=== PATIENT | male | born 1965 | race Two or more races ===

== ENCOUNTER 2020-03-24 14:05 | Outpatient (REF) | payer OTHER, SELFPAY ==
--- NOTE | 2020-03-24 14:10 | XR_ITS ---
EXAMINATION: XR STANDING AP KNEES XR KNEE, RIGHT CLINICAL INFORMATION: M25.561 - Pain in right knee; M25.562 - Pain in left knee COMPARISON: Standing AP knees and bilateral knee radiographs 03/23/2016 TECHNIQUE: Standing AP view of both knees is performed along with lateral and axial patella views of the right knee. FINDINGS: Right knee has mild narrowing medial compartment and borderline narrowing patellofemoral joint. There are no erosive changes. There is mild thickening suprapatellar bursa. There is likely edema are in region of Hoffa's fat pad. There is no bony destructive process. Left knee shows no joint narrowing or erosive change. No destructive process. XR/XR knee RT 2V IMPRESSION: Right knee: Mild narrowing medial compartment and borderline narrowing patellofemoral joint. Trace suprapatellar effusion. Edema in Hoffa's fat pad. Left knee: Unremarkable.
--- NOTE | 2020-03-24 14:10 | XR_ITS ---
EXAMINATION: XR STANDING AP KNEES XR KNEE, RIGHT CLINICAL INFORMATION: M25.561 - Pain in right knee; M25.562 - Pain in left knee COMPARISON: Standing AP knees and bilateral knee radiographs 03/23/2016 TECHNIQUE: Standing AP view of both knees is performed along with lateral and axial patella views of the right knee. FINDINGS: Right knee has mild narrowing medial compartment and borderline narrowing patellofemoral joint. There are no erosive changes. There is mild thickening suprapatellar bursa. There is likely edema are in region of Hoffa's fat pad. There is no bony destructive process. Left knee shows no joint narrowing or erosive change. No destructive process. XR/XR knee standing BI IMPRESSION: Right knee: Mild narrowing medial compartment and borderline narrowing patellofemoral joint. Trace suprapatellar effusion. Edema in Hoffa's fat pad. Left knee: Unremarkable.
== END 2020-03-24 14:06 | disposition home or self-care (01) ==
LOC: HO.HOSX 14:05
PROVIDERS: Visit Provider Orthopaedic Surgery
DX: M25.562 Pain in left knee (principal); M25.561 Pain in right knee; M22.2X1 Patellofemoral disorders, right knee
CPT/HCPCS: 20610; 73560; 73565; 99202; J1040

== ENCOUNTER 2020-07-02 08:28 | Outpatient (REF) | payer OTHER, SELFPAY ==
[2020-07-02 09:41] LABS: Estimated Average Glucose 163 mg/dL; Hemoglobin A1c % 7.3 %
[2020-07-02 10:24] LABS: Alanine Aminotransferase 11 U/L (0-40); Albumin Level 4.2 g/dL (3.5-5.0); Alkaline Phosphatase 98 U/L (39-117); Anion Gap 10 (12-20); Aspartate Amino Transferase 12 U/L (5-37); Bilirubin Total 0.3 mg/dL (0.0-1.0); Blood Urea Nitrogen 18 mg/dL (9-16); Calcium 9.1 mg/dL (8.4-10.2); Carbon Dioxide 28 mmol/L (22-29); Chloride 107 mmol/L (96-108); Cholesterol 101 mg/dL; Estimated Glomerular Filt Rate > 60; Glucose Fasting 159 mg/dL (60-99); HDL Cholesterol 32 mg/dL; LDL Cholesterol Calculated 55 mg/dl; Potassium 4.4 mmol/L (3.3-5.1); Sodium 141 mmol/L (135-145); Total Protein 6.6 g/dL (6.5-8.0); Triglycerides 70 mg/dL
[2020-07-02 10:41] LABS: Vitamin B12 212 pg/mL (200-900)
== END 2020-07-02 08:29 | disposition home or self-care (01) ==
LOC: HO.LAB 08:28
PROVIDERS: PCP Student in an Organized Health Care Education/Training Program; Visit Provider Nurse Practitioner Gerontology
DX: E11.42 Type 2 diabetes mellitus with diabetic polyneuropathy (principal)
CPT/HCPCS: 36415; 80053; 80061; 82607; 83036

== ENCOUNTER → 2020-07-03 07:52 | Outpatient (BNVA) | payer OTHER, SELFPAY | PROVIDERS: PCP Pediatrics; Visit Provider Nurse Practitioner Gerontology | DX: Z13.89 Encounter for screening for other disorder (principal) | CPT/HCPCS: Q3014 ==

== ENCOUNTER → 2020-08-31 10:29 | Outpatient (BNVA) | payer OTHER, SELFPAY | PROVIDERS: PCP Student in an Organized Health Care Education/Training Program; Visit Provider Nurse Practitioner | DX: R19.7 Diarrhea, unspecified (principal); R10.33 Periumbilical pain | CPT/HCPCS: 99212 ==

== ENCOUNTER → 2020-09-21 13:01 | Outpatient (BNVA) | payer OTHER, SELFPAY | PROVIDERS: PCP Student in an Organized Health Care Education/Training Program; Visit Provider Nurse Practitioner ==

== ENCOUNTER → 2020-10-02 07:29 | Outpatient (BNVA) | payer OTHER, SELFPAY | PROVIDERS: PCP Student in an Organized Health Care Education/Training Program; Visit Provider Nurse Practitioner Gerontology | CPT/HCPCS: Q3014 ==

== ENCOUNTER 2020-11-05 16:12 | Emergency (ER) | payer OTHER, SELFPAY ==
--- NOTE | ~2020-11-05 | CT_ITS ---
EXAMINATION: CT ABDOMEN AND PELVIS WITH CONTRAST CLINICAL INFORMATION: Abdominal pain, diarrhea COMPARISON: None TECHNIQUE: Multidetector volumetric images were obtained from the superior aspect of the liver through the pubic symphysis following administration 85 mL of Omnipaque 350 intravenous contrast. Sagittal and coronal reformatted images were obtained on the technologist's workstation. Oral contrast: No This CT examination was performed using dose optimization techniques as appropriate, variously including the following: *Automated exposure control *Adjustment of mA and/or kV according to patient size (this includes techniques or standardized protocols for targeted exams where dose is matched to indication/reason for exam; i.e. extremities or head) *Use of iterative reconstruction technique DLP: 467 mGy-cm FINDINGS: LUNG BASES: Trace left pleural effusion. LIVER, GALLBLADDER, AND BILIARY TREE: There is a 1.2 cm subdiaphragmatic echogenic focus in the left hepatic lobe most likely representing a hemangioma although is nonspecific. The gallbladder is unremarkable with no evidence of radiopaque gallstones, gallbladder wall thickening, or obvious pericholecystic inflammatory changes. PANCREAS: Unremarkable. SPLEEN: Unremarkable. ADRENAL GLANDS: Unremarkable. KIDNEYS AND URETERS: The kidneys are normal in size, shape, and attenuation. No hydronephrosis, hydroureter, or calculi seen. No perinephric stranding. There is a 1.4 cm simple fluid density left renal cyst at the lower pole which does not require additional follow-up. BLADDER: There is a 2.3 cm right posterolateral urinary bladder diverticula. Otherwise unremarkable. GASTROINTESTINAL TRACT: The small and large bowel are unremarkable. The appendix is unremarkable. ABDOMINAL WALL: No significant hernia is appreciated. LYMPH NODES: Normal. VASCULAR: Unremarkable. PELVIC VISCERA: Unremarkable. OSSEOUS STRUCTURES: Unremarkable. CT/CT abdomen pelvis w con IMPRESSION: No focal inflammatory process or obstruction. Incidental right-sided urinary bladder diverticula. There is a 1.2 cm hyperattenuating lesion within the subdiaphragmatic left hepatic lobe most likely representing a hemangioma although is not specific. Dynamic liver MRI may be able to definitively characterize. There is a trace left pleural effusion.
[2020-11-05 16:23] VITALS: BP 140/85; PULSE 86; RESP 16; TEMP 36.2; O2SAT 99; BMI 23.9
[2020-11-05 17:54] LABS: MANUAL DIFF FLAG NO
--- NOTE | 2020-11-05 17:56 | ED.ABDPAIN ---
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 He has intermittent vomiting with it. At times he has diarrhea which appears dark but this alternates with brown normal formed stool. No fevers, chills, urinary symptoms. Nonbloody and nonbilious vomiting. He tells me he had intake with a weight control engineer 1 week ago on the phone and had outpatient labs and stool studies which were done. He tells me he does not know these results. Today he was seen at [facility] and referred to the emergency department for further evaluation. He does use aspirin 325 mg daily as well as intermittent Motrin. he tells me he had a colonoscopy approximately 1 year ago which was normal. He has had a poor appetite in the last month and has lost approximately 7 lb. Related Data Home Medications Medication Instructions Recorded Confirmed acetaminophen 650 mg 650 mg PO tab 03/17/20 10/02/20 tablet,extended release alcohol swabs pad TOPICAL TID 03/17/20 10/02/20 aspirin 81 mg tablet,delayed 81 mg PO DAILY 03/17/20 10/02/20 release atorvastatin 80 mg tablet 80 mg PO DAILY 03/17/20 10/02/20 blood sugar diagnostic #10 ea 03/17/20 10/02/20 carvedilol 12.5 mg tablet 12.5 mg PO 03/17/20 10/02/20 cholecalciferol (vitamin D3) 25 25 mcg PO QAM 03/17/20 10/02/20 mcg (1,000 unit) tablet gabapentin 800 mg tablet 800 mg PO BID tab 03/17/20 10/02/20 ipratropium 20 mcg-albuterol 100 1 INHALATION QID 03/17/20 10/02/20 mcg/actuation mist for inhalation lancets 33 gauge #100 ea 03/17/20 10/02/20 mirtazapine 45 mg tablet 45 mg PO BEDTIME 03/17/20 10/02/20 oxybutynin chloride 5 mg tablet 5 mg PO BID 03/17/20 10/02/20 pen needle, diabetic 32 gauge x #50 ea 03/17/20 10/02/20 sertraline 50 mg tablet 50 mg PO DAILY 03/17/20 10/02/20 pantoprazole 40 mg tablet,delayed 40 mg PO 09/21/20 10/02/20 release Previous Rx's Medication Instructions Recorded insulin glargine U-300 conc 300 7 unit SUBCUT DAILY 54 Days #1.5 ml 07/03/20 unit/mL (1.5 mL) subcutaneous pen dulaglutide 3 mg/0.5 mL 3 mg SUBCUT QWEEK 28 Days #2 ml 10/02/20 subcutaneous pen injector metformin 1,000 mg tablet 1,000 mg PO BID #60 tab 10/02/20 amitriptyline 75 mg tablet 75 mg PO BEDTIME #30 tab 10/28/20 Allergies Allergy/AdvReac Type Severity Reaction Status Date / Time naproxen [From NAPROSYN] Allergy Mild HIVES Verified 10/02/20 08:17 Review of Systems Review of Systems Yes all other systems are reviewed and are negative Constitutional: Reports no additional constitutional complaints, Denies body ache(s), Denies chills, Denies fever(s), Denies headache(s), Denies weakness and Reports weight loss Eyes: Reports no additional eye complaints and Denies change in vision Reports system reviewed and no additional complaints, except as documented, Denies dizziness, Denies headache(s), Denies nasal congestion, Denies nasal discharge and Denies neck pain Cardiovascular: Reports no additional cardiovascular complaints, Denies chest pain, Denies leg edema and Denies dyspnea Respiratory: Reports no additional respiratory complaints, Denies cough and Denies dyspnea Gastrointestinal: Reports no additional gastrointestinal complaints, Reports abdominal pain, Reports melena, Reports diarrhea, Reports nausea and Reports vomiting Genitourinary: Denies urinary incontinence Musculoskeletal: Reports no additional musculoskeletal complaints, Denies back pain, Denies arthralgias, Denies joint swelling, Denies neck pain, Denies numbness and Denies tingling Skin/Breast: Reports system reviewed and no additional complaints, except as docu and Denies rash Reports system reviewed and no additional complaints, except as documented, Denies Abnormal speech present, Denies dizziness, Denies headache(s), Denies numbness, Denies tingling and Denies weakness Physical Exam Vital Signs: Vital Signs: Last Vital Signs Temp 97.1 F 11/05/20 16:23 Pulse 86 11/05/20 16:23 Resp 16 11/05/20 16:23 BP 140/85 H 11/05/20 16:23 Pulse Ox 99 11/05/20 16:23 Body Mass Index 23.9 Const: General: cooperative, healthy appearing, comfortable and no acute distress Orientation/consciousness: patient oriented x3 Limitations: no limitations HENMT: Head: Yes normal to inspection Ears: hearing grossly normal bilaterally General nose exam: Normal external nose present Face and sinus: Yes normal facial exam Mouth: Normal oral and palatal mucosa present Throat: Yes posterior oropharynx normal Eyes: General: appearance normal, both eyes and all related structures Pupils: Equal, round and reactive pupils present Neck: Neck: Yes normal visual inspection Chest: Chest palpation & inspection: normal inspection of the chest Resp: Effort & Inspection: normal respiratory effort Auscultation: clear to auscultation bilaterally Cardio: Rate: regular rate Rhythm: regular rhythm Peripheral pulses: Peripheral pulses 2+ throughout GI: Inspection: Yes normal to inspection Palpation (GI): Soft to palpation and Tenderness to palpation present (GI) ( Diffusely tender no focal tenderness) Auscultation: normal bowel sounds Rectal Exam - Male: Yes visual inspection normal, Yes normal sphincter tone ( black stool) and Yes heme negative stool Back/Spine/Pelvis: Thoracic/Lumbar Spine: thoracic and lumbar spine normal to inspection Skin: General skin exam: no rashes or lesions noted Neuro: General: patient oriented x3, no focal motor deficits and normal sensation to monofilament Cranial nerves: Yes Equal, round and reactive pupils present Cognition (Neuro): normal cognition Speech: No Abnormal speech present Gait exam (Neuro): Normal gait present Motor exam (neuro): 5/5 motor strength present throughout Extrem: General: Yes normal to inspection, Yes no pedal edema and Yes no calf tenderness Course Course Course Narrative: 55-year-old male here with complaints of intermittent abdominal pain with alternating diarrhea and formed stools some which are black and vomiting for greater than 1 month with a 7 lb weight loss due to poor appetite. On exam patient has diffuse tenderness with no focal tenderness. He does have black stool which is heme-negative. He is hemodynamically stable. He has multiple risk factors for upper GI bleed such as aspirin daily use and intermittent NSAID use. He also has a history of former alcohol abuse but has not had a drink in more than 3 years. Denies any liver disease. will check labs, occult stool, CT 2014- labs are unremarkable. Occult stool negative. UA negative. CT shows a liver lesion likely a hemangioma. This was reviewed with the patient and his family. A copy of the report was provided to them. Will refer to GI for follow-up and possible endoscopy or colonoscopy. Reviewed worrisome signs and symptoms and when to return to the emergency department. Comfortable with discharge home. MDM - Abdominal Pain MDM Narrative Medical decision making narrative: upper GI bleed gastritis gastric ulcer Medical Records Attestation: I reviewed the patient's medical records. Lab Data Attestation: I reviewed the patient's lab results. Result diagrams: 11/05/20 17:48 11/05/20 17:48 Labs: Lab Results 11/05/20 11/05/20 11/05/20 Range/Units 17:48 17:48 17:48 WBC 6.4 (4.8-10.8) X10*3/uL RBC 4.82 (4.60-5.80) X10*6/uL Hgb 13.0 L (14.0-18.0) g/dl Hct 41.1 L (42-52) % MCV 85.3 (80-98) fL MCH 27.0 (27.0-33.0) pg MCHC 31.6 (31.0-36.0) g/dl RDW 13.2 (11.0-16.0) % Plt Count 125 L (160-400) X10*3/uL MPV 11.6 (9.4-12.4) fL Immature Gran % (Auto) 0.2 (0.0-0.4) % Neut % (Auto) 49.4 (45-73) % Lymph % (Auto) 37.2 (20-40) % Monona % (Auto) 6.6 (2-11) % Eos % (Auto) 5.8 H (0-4) % Baso % (Auto) 0.8 (0-2) % Lymph # (Auto) 2.4 (1.2-4.9) X10*3/uL Monona # (Auto) 0.4 (0.1-1.2) X10*3/uL Eos # (Auto) 0.4 (0.0-0.4) X10*3/uL Baso # (Auto) 0.1 (0.0-0.2) X10*3/uL Abs Immat Gran (auto) 0.01 (0.00-0.03) X10*3/uL Absolute Neuts (auto) 3.2 (2.0-8.3) X10*3/uL Absolute Nucleated RBC 0.000 (0.0-0.012) X10*3/uL Nucleated RBC % (auto) 0.0 (0.0-0.2) /100WBC Sodium 140 (135-145) mmol/L Potassium 4.7 (3.3-5.1) mmol/L Chloride 106 (96-108) mmol/L Carbon Dioxide 29 (22-29) mmol/L Anion Gap 10 L (12-20) BUN 14 (9-16) mg/dL Creatinine 1.00 (0.5-1.4) mg/dL Estim Creat Clear Calc 83.4 Estimated GFR > 60 Random Glucose 163 H (60-115) mg/dL Calcium 8.8 (8.4-10.2) mg/dL Total Bilirubin 0.3 (0.0-1.0) mg/dL Direct Bilirubin < 0.2 (0.0-0.5) mg/dL AST 12 (5-37) U/L ALT 12 (0-40) U/L Alkaline Phosphatase 81 (39-117) U/L Total Protein 6.3 L (6.5-8.0) g/dL Albumin 4.0 (3.5-5.0) g/dL Urine Color Urine Appearance Urine pH (5.0-8.0) Ur Specific Greenleaf (1.005-1.025) Urine Protein (NEG-TRACE) MG/DL Urine Glucose (UA) (NEG) MG/DL Urine Ketones (NEG) MG/DL Urine Blood (NEG) Urine Nitrite (NEG) Ur Leukocyte Esterase (NEG) Stool Occult Blood NEGATIVE (NEGATIVE) 11/05/20 Range/Units 19:01 WBC (4.8-10.8) X10*3/uL RBC (4.60-5.80) X10*6/uL Hgb (14.0-18.0) g/dl Hct (42-52) % MCV (80-98) fL MCH (27.0-33.0) pg MCHC (31.0-36.0) g/dl RDW (11.0-16.0) % Plt Count (160-400) X10*3/uL MPV (9.4-12.4) fL Immature Gran % (Auto) (0.0-0.4) % Neut % (Auto) (45-73) % Lymph % (Auto) (20-40) % Monona % (Auto) (2-11) % Eos % (Auto) (0-4) % Baso % (Auto) (0-2) % Lymph # (Auto) (1.2-4.9) X10*3/uL Monona # (Auto) (0.1-1.2) X10*3/uL Eos # (Auto) (0.0-0.4) X10*3/uL Baso # (Auto) (0.0-0.2) X10*3/uL Abs Immat Gran (auto) (0.00-0.03) X10*3/uL Absolute Neuts (auto) (2.0-8.3) X10*3/uL Absolute Nucleated RBC (0.0-0.012) X10*3/uL Nucleated RBC % (auto) (0.0-0.2) /100WBC Sodium (135-145) mmol/L Potassium (3.3-5.1) mmol/L Chloride (96-108) mmol/L Carbon Dioxide (22-29) mmol/L Anion Gap (12-20) BUN (9-16) mg/dL Creatinine (0.5-1.4) mg/dL Estim Creat Clear Calc Estimated GFR Random Glucose (60-115) mg/dL Calcium (8.4-10.2) mg/dL Total Bilirubin (0.0-1.0) mg/dL Direct Bilirubin (0.0-0.5) mg/dL AST (5-37) U/L ALT (0-40) U/L Alkaline Phosphatase (39-117) U/L Total Protein (6.5-8.0) g/dL Albumin (3.5-5.0) g/dL Urine Color YELLOW Urine Appearance CLEAR Urine pH 7.0 (5.0-8.0) Ur Specific Greenleaf 1.010 (1.005-1.025) Urine Protein NEG (NEG-TRACE) MG/DL Urine Glucose (UA) 250 H (NEG) MG/DL Urine Ketones NEG (NEG) MG/DL Urine Blood NEG (NEG) Urine Nitrite NEG (NEG) Ur Leukocyte Esterase NEG (NEG) Stool Occult Blood (NEGATIVE) Imaging Data CT scan - abdomen: Attestation: I personally reviewed and interpreted this imaging study as follows: Radiologist's impression: CT/CT abdomen pelvis w con IMPRESSION: No focal inflammatory process or obstruction. Incidental right-sided urinary bladder diverticula. There is a 1.2 cm hyperattenuating lesion within the subdiaphragmatic left hepatic lobe most likely representing a hemangioma although is not specific. Dynamic liver MRI may be able to definitively characterize. There is a trace left pleural effusion. Discharge Plan Discharge Clinical Impression: Abdominal pain, Abnormal CT of liver Patient Disposition: Home, Self-Care Instructions: Abdominal Pain (ED) Additional Instructions: your CT scan shows a lesion on your liver. Follow-up with GI Prescriptions: No Action metformin 1,000 mg tablet 1,000 mg PO BID Qty: 60 RF: 3 amitriptyline 75 mg tablet 75 mg PO BEDTIME Qty: 30 RF: 2 Combivent Respimat 20-100 mcg/actuation mist 1 inhalation QID RF: 0 cholecalciferol (vitamin D3) 25 mcg (1,000 unit) tablet 25 mcg PO QAM RF: 0 sertraline 50 mg tablet 50 mg PO DAILY RF: 0 oxybutynin chloride 5 mg tablet 5 mg PO BID RF: 0 mirtazapine 45 mg tablet 45 mg PO BEDTIME RF: 0 acetaminophen 650 mg tablet extended release 650 mg PO RF: 0 aspirin 81 mg tablet,delayed release (DR/EC) 81 mg PO DAILY RF: 0 carvedilol 12.5 mg tablet 12.5 mg PO RF: 0 atorvastatin 80 mg tablet 80 mg PO DAILY RF: 0 (DME) pen needle, diabetic 32 gauge x /32 needle See Rx Instructions ea .ROUTE .MEDSUPPLY Qty: 50 RF: 0 (DME) lancets 33 gauge misc See Rx Instructions ea Not Applicable .MEDSUPPLY Qty: 100 RF: 0 (DME) FreeStyle Lite Strips Strip See Rx Instructions ea Not Applicable .MEDSUPPLY Qty: 10 RF: 0 alcohol swabs Pads, Medicated topical TID RF: 0 gabapentin 800 mg tablet 800 mg PO BID RF: 0 pantoprazole 40 mg tablet,delayed release (DR/EC) 40 mg PO RF: 0 insulin glargine U-300 conc 300 unit/mL (1.5 mL) insulin pen 7 unit subcut DAILY 54 Days Qty: 1.5 RF: 2 Trulicity 3 mg/0.5 mL pen injector 3 mg subcut QWEEK 28 Days Qty: 2 RF: 2 Referrals: Delmar Zhong [Physician] - 2 days Interventions: ED Discharge Assessment Last Done: 11/05/20 20:09 Discharge Date/Time: 11/05/20 20:00 [facility] Past Medical History Attestation statement: The following information was validated with the patient. Source: old records reviewed and nursing notes reviewed Medical History Alcohol abuse BPH (benign prostatic hyperplasia) COPD (chronic obstructive pulmonary disease) Depression Diabetes type 2, uncontrolled Essential hypertension Hyperlipidemia LDL goal <70 Long-term insulin use in type 2 diabetes Myocardial infarction Peripheral neuropathy Seizures Sleep apnea Thrombocytopenia Tobacco abuse Type 2 diabetes mellitus with diabetic polyneuropathy Surgical History History of arthroscopic surgery of shoulder Hx of hernia repair Hx of knee surgery Hx of pneumonectomy Family History Family History Father Cancer Diabetes Mother CVD (cardiovascular disease) Social History Social History Household Members: Spouse Alcohol intake: never Patient Tobacco Use Status: Never used Tobacco Use of substances other than those prescribed or required for medical reasons: No Advance Directives: No Advance Directives Information Provided: Yes Current occupational status: unemployed Current occupation: Right Handed
[2020-11-05 18:00] LABS: OBS Int Ctl Valid YES; OBS1 NEGATIVE (NEGATIVE)
[2020-11-05 18:02] LABS: Basophils Absolute Auto 0.1 X10*3/uL (0.0-0.2); Basophils Percent Auto 0.8 % (0-2); Eosinophils Absolute Auto 0.4 X10*3/uL (0.0-0.4); Eosinophils Percent Auto 5.8 % (0-4); Hematocrit 41.1 % (42-52); Imm Gran Abs Auto 0.01 X10*3/uL (0.00-0.03); Imm Gran Pct Auto 0.2 % (0.0-0.4); Lymphocytes Absolute Auto 2.4 X10*3/uL (1.2-4.9); Lymphocytes Percent Auto 37.2 % (20-40); Mean Corpuscular HGB Conc 31.6 g/dl (31.0-36.0); Mean Corpuscular Volume 85.3 fL (80-98); Mean Platelet Volume 11.6 fL (9.4-12.4); Monocytes Absolute Auto 0.4 X10*3/uL (0.1-1.2); Monocytes Percent Auto 6.6 % (2-11); Neutrophils Absolute Auto 3.2 X10*3/uL (2.0-8.3); Neutrophils Percent Auto 49.4 % (45-73); Platelet Count 125 X10*3/uL (160-400); Red Blood Count 4.82 X10*6/uL (4.60-5.80); Red Cell Distribution Width 13.2 % (11.0-16.0); White Blood Count 6.4 X10*3/uL (4.8-10.8)
[2020-11-05 18:21] LABS: Alanine Aminotransferase 12 U/L (0-40); Alkaline Phosphatase 81 U/L (39-117); Anion Gap 10 (12-20); Aspartate Amino Transferase 12 U/L (5-37); Bilirubin Direct < 0.2 mg/dL (0.0-0.5); Bilirubin Total 0.3 mg/dL (0.0-1.0); Blood Urea Nitrogen 14 mg/dL (9-16); Calcium 8.8 mg/dL (8.4-10.2); Carbon Dioxide 29 mmol/L (22-29); Chloride 106 mmol/L (96-108); Creatinine Clr Calc Pharmacy 83.4; Estimated Glomerular Filt Rate > 60; Glucose Random 163 mg/dL (60-115); Potassium 4.7 mmol/L (3.3-5.1); Sodium 140 mmol/L (135-145); Total Protein 6.3 g/dL (6.5-8.0)
[2020-11-05] MEDS: iohexoL 350 MG/ML 100 ML INFUS..BTL IV (18:37)
[2020-11-05 19:08] LABS: Appearance Urine CLEAR; Color Urine YELLOW; Glucose Urine UA 250 MG/DL (NEG); Leukocyte Esterase Urine NEG (NEG); Nitrite Urine NEG (NEG); Urine Blood NEG (NEG); Urine Ketones NEG (NEG); Urine Protein NEG (NEG-TRACE)
== END 2020-11-05 20:00 | disposition home or self-care (01) ==
PROVIDERS: Nurse Practitioner Family; Emergency Provider Emergency Medicine Emergency Medical Services; PCP Student in an Organized Health Care Education/Training Program
DX: R10.84 Generalized abdominal pain (principal); R93.2 Abnormal findings on diagnostic imaging of liver and biliary tract; E11.9 Type 2 diabetes mellitus without complications; I10 Essential (primary) hypertension; G40.909 Epilepsy, unspecified, not intractable, without status epilepticus; J44.9 Chronic obstructive pulmonary disease, unspecified; F10.11 Alcohol abuse, in remission; I25.2 Old myocardial infarction; Z79.82 Long term (current) use of aspirin; Z79.4 Long term (current) use of insulin; Z79.899 Other long term (current) drug therapy
CPT/HCPCS: 36415; 74177; 80048; 80076; 81003; 82272; 85025; 99284; Q9967

== ENCOUNTER 2020-11-13 15:58 | Outpatient (REF) | payer OTHER, SELFPAY ==
[2020-11-13 17:46] LABS: MANUAL DIFF FLAG NO
[2020-11-13 17:50] LABS: Basophils Absolute Auto 0.1 X10*3/uL (0.0-0.2); Basophils Percent Auto 0.5 % (0-2); Eosinophils Absolute Auto 0.3 X10*3/uL (0.0-0.4); Eosinophils Percent Auto 2.6 % (0-4); Hematocrit 40.8 % (42-52); Imm Gran Abs Auto 0.02 X10*3/uL (0.00-0.03); Imm Gran Pct Auto 0.2 % (0.0-0.4); Lymphocytes Absolute Auto 2.5 X10*3/uL (1.2-4.9); Lymphocytes Percent Auto 24.5 % (20-40); Mean Corpuscular HGB Conc 31.9 g/dl (31.0-36.0); Mean Corpuscular Hemoglobin 27.1 pg (27.0-33.0); Mean Corpuscular Volume 85.2 fL (80-98); Monocytes Absolute Auto 0.7 X10*3/uL (0.1-1.2); Monocytes Percent Auto 6.7 % (2-11); Neutrophils Absolute Auto 6.7 X10*3/uL (2.0-8.3); Neutrophils Percent Auto 65.5 % (45-73); Platelet Count 142 X10*3/uL (160-400); Red Blood Count 4.79 X10*6/uL (4.60-5.80); Red Cell Distribution Width 13.2 % (11.0-16.0); White Blood Count 10.3 X10*3/uL (4.8-10.8)
[2020-11-13 18:14] LABS: C Reactive Protein 0.67 mg/dL (< or = 0.50)
[2020-11-16 13:41] LABS: Gliadin Deamidated IgA Ab 3 Units; Gliadin Deamidated IgG Ab 2 Units; Transglutaminase Ab IgG 1 U/mL; Transglutaminase IgA 1 U/mL
== END 2020-11-13 15:59 | disposition home or self-care (01) ==
LOC: HO.LAB 15:58
PROVIDERS: PCP Student in an Organized Health Care Education/Training Program; Visit Provider Nurse Practitioner
DX: R10.33 Periumbilical pain (principal); R19.7 Diarrhea, unspecified; Z98.890 Other specified postprocedural states
CPT/HCPCS: 36415; 83516; 85025; 86140; Q3014

== ENCOUNTER 2020-11-15 11:00 | Outpatient (REF) | payer OTHER, SELFPAY ==
[2020-11-16 11:36] LABS: CDiff Gene PCR NEGATIVE (Negative)
== END 2020-11-15 11:01 | disposition home or self-care (01) ==
LOC: HO.LNP 11:00
PROVIDERS: Visit Provider Nurse Practitioner
DX: R10.33 Periumbilical pain (principal); R19.7 Diarrhea, unspecified
CPT/HCPCS: 87045; 87046; 87338; 87493

== ENCOUNTER → 2020-11-24 11:17 | Outpatient (BNVA) | payer OTHER, SELFPAY | PROVIDERS: PCP Student in an Organized Health Care Education/Training Program; Visit Provider Nurse Practitioner | DX: K58.0 Irritable bowel syndrome with diarrhea (principal); R10.33 Periumbilical pain; R63.4 Abnormal weight loss; E11.65 Type 2 diabetes mellitus with hyperglycemia; I10 Essential (primary) hypertension; E78.5 Hyperlipidemia, unspecified; Z79.4 Long term (current) use of insulin | CPT/HCPCS: 99212 ==

== ENCOUNTER → 2020-12-04 08:33 | Outpatient (BNVA) | payer OTHER, SELFPAY | PROVIDERS: Visit Provider Nurse Practitioner Gerontology | CPT/HCPCS: Q3014 ==

== ENCOUNTER → 2020-12-21 10:28 | Outpatient (BNVA) | payer OTHER, SELFPAY | PROVIDERS: Visit Provider Nurse Practitioner | DX: K58.0 Irritable bowel syndrome with diarrhea (principal); K21.9 Gastro-esophageal reflux disease without esophagitis; Z79.899 Other long term (current) drug therapy | CPT/HCPCS: 99212 ==

== ENCOUNTER 2021-01-25 06:30 | Outpatient (REF) | payer OTHER, SELFPAY | END 2021-01-25 06:31 | disposition home or self-care (01) | LOC: HO.HOSX 06:30 | PROVIDERS: Visit Provider Orthopaedic Surgery | DX: Z13.89 Encounter for screening for other disorder (principal) ==

== ENCOUNTER 2021-02-04 08:41 | Outpatient (REF) | payer OTHER, SELFPAY ==
--- NOTE | ~2021-02-04 | XR_ITS ---
EXAMINATION: XR BILATERAL SHOULDER CLINICAL INFORMATION: Bilateral shoulder pain. COMPARISON: None. TECHNIQUE: 3 views each shoulder. FINDINGS: Right Shoulder: There is no visible acute fracture, dislocation or subluxation. No bony erosive changes. The soft tissues are normal. Left Shoulder: There is mild reduction in the left glenohumeral joint space without bony erosive changes or loose bodies. Mild loss of left AC joint space is noted as well. No acute fracture or subluxation seen. The soft tissues are normal. XR/XR shoulder LT min 2V IMPRESSION: Mild degenerative changes left AC joint and glenohumeral joint space. No acute fracture. Unremarkable right shoulder exam.
--- NOTE | ~2021-02-04 | XR_ITS ---
EXAMINATION: XR BILATERAL SHOULDER CLINICAL INFORMATION: Bilateral shoulder pain. COMPARISON: None. TECHNIQUE: 3 views each shoulder. FINDINGS: Right Shoulder: There is no visible acute fracture, dislocation or subluxation. No bony erosive changes. The soft tissues are normal. Left Shoulder: There is mild reduction in the left glenohumeral joint space without bony erosive changes or loose bodies. Mild loss of left AC joint space is noted as well. No acute fracture or subluxation seen. The soft tissues are normal. XR/XR shoulder RT min 2V IMPRESSION: Mild degenerative changes left AC joint and glenohumeral joint space. No acute fracture. Unremarkable right shoulder exam.
== END 2021-02-04 08:42 | disposition home or self-care (01) ==
LOC: HO.HOSX 08:41
PROVIDERS: Visit Provider Orthopaedic Surgery
DX: M75.101 Unspecified rotator cuff tear or rupture of right shoulder, not specified as traumatic (principal); M25.512 Pain in left shoulder; E11.9 Type 2 diabetes mellitus without complications; Z79.4 Long term (current) use of insulin
CPT/HCPCS: 20610; 73030; 99212; J1100

== ENCOUNTER → 2021-03-03 13:51 | Outpatient (BNVA) | payer OTHER, SELFPAY | PROVIDERS: PCP Student in an Organized Health Care Education/Training Program; Visit Provider Internal Medicine Cardiovascular Disease | DX: R06.00 Dyspnea, unspecified (principal) | CPT/HCPCS: 93005; 99202 ==

== ENCOUNTER → 2021-05-25 10:26 | Outpatient (BNVA) | payer OTHER, SELFPAY | PROVIDERS: PCP Student in an Organized Health Care Education/Training Program; Visit Provider Nurse Practitioner Gerontology | DX: E11.42 Type 2 diabetes mellitus with diabetic polyneuropathy (principal); E11.65 Type 2 diabetes mellitus with hyperglycemia; E78.5 Hyperlipidemia, unspecified; Z79.4 Long term (current) use of insulin | CPT/HCPCS: 82947; 83036; 99212 ==

== ENCOUNTER → 2021-06-04 11:03 | Outpatient (BNVA) | payer OTHER, SELFPAY | PROVIDERS: PCP Student in an Organized Health Care Education/Training Program; Visit Provider Orthopaedic Surgery | DX: M25.511 Pain in right shoulder (principal); M25.512 Pain in left shoulder; M22.2X1 Patellofemoral disorders, right knee; E11.65 Type 2 diabetes mellitus with hyperglycemia | CPT/HCPCS: 20610; 99212; J1100 ==

== ENCOUNTER → 2021-07-02 11:51 | Outpatient (BNVA) | payer OTHER, SELFPAY | PROVIDERS: PCP Student in an Organized Health Care Education/Training Program; Visit Provider Orthopaedic Surgery | DX: M75.101 Unspecified rotator cuff tear or rupture of right shoulder, not specified as traumatic (principal) | CPT/HCPCS: 99212 ==

== ENCOUNTER 2021-08-31 13:07 | Outpatient (REF) | payer OTHER, SELFPAY ==
--- NOTE | ~2021-08-31 | MR_ITS ---
EXAMINATION: MR SHOULDER WITHOUT CONTRAST, RIGHT CLINICAL INFORMATION: Right shoulder pain. Evaluate for a rotator cuff tendon tear. COMPARISON: Right shoulder radiographs dated 02/04/2021. TECHNIQUE: MRI of the shoulder without contrast was performed on a high-field scanner. FINDINGS: ROTATOR CUFF: Mild infraspinatus tendinosis without a measurable tendon tear. No muscle atrophy or fatty infiltration. BICEPS: Normal. CORACOACROMIAL ARCH: The undersurface of the acromion is flat with no subacromial spur. Mild acromioclavicular osteoarthritis. LABRUM/CAPSULE: Normal. GLENOHUMERAL JOINT/MARROW: Inferior glenohumeral articular cartilage signal heterogeneity with tiny marginal osteophytes. MR/MR shoulder RT wo con IMPRESSION: 1. Mild infraspinatus tendinosis without a measurable rotator cuff tendon tear. 2. Mild acromioclavicular osteoarthritis. 3. Minimal glenohumeral arthrosis.
== END 2021-08-31 13:08 | disposition home or self-care (01) ==
LOC: HO.MRI 13:07
PROVIDERS: Visit Provider Orthopaedic Surgery
DX: M75.101 Unspecified rotator cuff tear or rupture of right shoulder, not specified as traumatic (principal)
CPT/HCPCS: 73221

== ENCOUNTER → 2021-09-10 11:35 | Outpatient (BNVA) | payer OTHER, SELFPAY | PROVIDERS: PCP Student in an Organized Health Care Education/Training Program; Visit Provider Orthopaedic Surgery | DX: M75.41 Impingement syndrome of right shoulder (principal) | CPT/HCPCS: 99212 ==

== ENCOUNTER → 2021-10-08 09:17 | Outpatient (BNVA) | payer OTHER, SELFPAY | PROVIDERS: PCP Student in an Organized Health Care Education/Training Program; Visit Provider Nurse Practitioner | DX: K58.0 Irritable bowel syndrome with diarrhea (principal); K21.9 Gastro-esophageal reflux disease without esophagitis; Z79.899 Other long term (current) drug therapy | CPT/HCPCS: 99212 ==

== ENCOUNTER → 2021-11-03 15:06 | Outpatient (BNVA) | payer OTHER, SELFPAY | PROVIDERS: PCP Student in an Organized Health Care Education/Training Program; Visit Provider Nurse Practitioner Family | DX: Z01.810 Encounter for preprocedural cardiovascular examination (principal); I51.81 Takotsubo syndrome; I77.810 Thoracic aortic ectasia; R06.00 Dyspnea, unspecified; Z79.82 Long term (current) use of aspirin; Z79.899 Other long term (current) drug therapy | CPT/HCPCS: 93005; 99212 ==

== ENCOUNTER → 2021-11-08 07:31 | Outpatient (REF) | payer OTHER, SELFPAY ==
--- NOTE | 2021-11-08 07:33 | CA_ITS ---
Transthoracic Echocardiogram Patient (Last, First, Middle): Aravind oMsqueda, Gender: Male Date of : 1965 Age: 56 Procedure Date: 11/08/2021 Procedure Type: Transthoracic Echocardiogram Location: OP Height: 175.26 cm Weight: 68.49 kg BSA: 1.83 m2 Heart Rate: 64 bpm BP: 132 / 64 mmHg Accounts Receivable Administrator: SB Referring MD: Dandy Rodriguez MD Symptoms: R06.00 - Dyspnea, unspecified Study Quality: Good ECG Rhythm: Sinus Conclusions: - Normal left ventricular cavity size. There is normal left ventricular wall thickness. The left ventricular systolic function is mildly decreased. The visually estimated ejection fraction is between 40-45%. - E/E prime ratio is between 8 and 15 consistent with indeterminate filling pressures. - Normal right ventricular cavity size. There is mildly decreased right ventricular systolic function. - There is mild dilatation of the sinuses of Valsalva measuring 4.50 cm and mild dilatation of the ascending aorta measuring 3.60 cm. - Low global longitudinal strain. Findings Left Ventricle Normal left ventricular cavity size. There is normal left ventricular wall thickness. The left ventricular systolic function is mildly decreased. The visually estimated ejection fraction is between 40-45%. There is borderline global hypokinesis. Abnormal diastolic function is noted. Spectral Doppler is indicative of an impaired relaxation filling pattern. E/E prime ratio is between 8 and 15 consistent with indeterminate filling pressures. Right Ventricle Normal right ventricular cavity size. There is mildly decreased right ventricular systolic function. Atria The left atrium is normal in size. The right atrium is mildly dilated. Aortic Valve There is a normal trileaflet aortic valve. There is no aortic valve stenosis. There is no aortic valve regurgitation. Mitral Valve Normal mitral valve structure and function. There is trace mitral valve regurgitation. There is no mitral valve stenosis. Pulmonic Valve Normal pulmonic valve structure and function. There is trace pulmonic valve regurgitation. Tricuspid Valve Normal tricuspid valve structure and function. There is trace tricuspid valve regurgitation. Tricuspid regurgitation envelope is inadequate for calculation of right ventricular systolic pressure. Normal right atrial pressure. Great Vessels There is mild dilatation of the sinuses of Valsalva measuring 4.50 cm and mild dilatation of the ascending aorta measuring 3.60 cm. The visualized portions of the pulmonary artery and branches are normal. Venous The inferior vena cava is normal in size and collapses greater than 50% with inspiration. Pericardium/Pleural There is no evidence of pericardial effusion. Prior Study Comparison No prior study available for comparison. Measurements 2D Linear Measurements IVSd: 1.12 0.6-0.9/0.6-1.0 cm LVIDd: 4.43 3.9-5.3/4.2-5.9 cm LVIDd Index: 2.42 2.4-3.2/2.2-3.1 cm/m2 LVIDs: 3.36 2.0-3.6 cm LVPWd: 0.76 0.7-1.1 cm LA Diam: 3.30 2.7-3.8/3.0-4.0 cm LAIDs Index: 1.80 1.5-2.3 cm/m2 LV Mass: 170.38 67-162/88-224 g LV Mass Index: 93.10 43-95/49-115 g/m2 LVOT Diam: 2.20 3.0+(-)1.3 cm 2D Systolic Function EF 4C: 50.10 >55% EF 2C: 42.10 >55% EF BiP: 48.20 >55% Mitral Valve MV Pk E: 0.60 MV PK A: 0.82 MV Decel Time: 191.00 E/A: 0.70 E'Lateral: 5.11 E'Medial: 4.03 E/E' Med: 15.00 E/E' Lat: 11.80 PHT: 56.00 MVA PHT: 3.93 Decel Edwards: 3.15 Aortic Valve AoV Pk Micheal: 0.90 AoV Mn Micheal: 0.66 AoV VTI: 0.19 AoV Pk Grad: 3.00 Aov Mn Grad: 2.00 YESENIA Cont.VTI: 3.41 LVOT LVOT Pk Micheal: 0.75 LVOT Mn Micheal: 0.53 LVOT VTI: 0.17 LVOT Pk Grad: 2.00 LVOT Mn Grad: 1.00 LVOT Diam: 2.20 LVOT Area: 3.80 Diastolic Function MV Pk E: 0.60 MV Pk A: 0.82 E/A: 0.70 E'Medial: 4.03 E/E' Med: 15.00 E' Laterial: 5.11 E/E' Lat: 11.80 Right Ventricle TAPSE (mm): 14.80 TVS' Micheal: 9.25 Tricuspid Valve RA Press: 3.00 Great Vessels Aorta Sinus of Valsalva: 4.50 2.0-3.5 cm Ao Asc: 3.60 2.1-3.4 cm Pulmonary Valve PV Pk Micheal: 0.61 Peak PV Grad: 1.00 Updated in Other Vendor System with Status of Final Dandy Rodriguez MD electronically signed on 11/10/2021 9:51:52 AM with status of Final
== END ==
LOC: HO.CARD 07:31
PROVIDERS: Visit Provider Internal Medicine Cardiovascular Disease
DX: R06.00 Dyspnea, unspecified (principal)
CPT/HCPCS: 93306

== ENCOUNTER → 2021-11-16 10:08 | Outpatient (REF) | payer OTHER, SELFPAY ==
--- NOTE | 2021-11-16 10:11 | CA_ITS ---
Acquisition Time: 2021-11-16 10:26:22 Total Exercise Time: 00:06:27 Test Indications: SOB, PREOP Medications: Protocol: DESEAN Max HR: 142 BPM 86% of Pred: 164 BPM Max BP: 188/074 mmHG Max Work Load: 7.6 METS Exercise stress test with exercise 6 min 27 sec of Desean protocol, achieving 86% MPHR, 7.6 METs, with mild sob, no chest discomfort, with isolated PVCs in recovery, with normotensive response to exercise, without EKG changes meeting criteria for ischemia. Test reviewed with Dr Rodriguez. Referred By: Dandy Rodriguez Overread By: ANA M CR
== END ==
LOC: HO.CARD 10:08
PROVIDERS: Visit Provider Internal Medicine Cardiovascular Disease
DX: R06.00 Dyspnea, unspecified (principal)
CPT/HCPCS: 93017

== ENCOUNTER 2021-12-15 08:48 | Day surgery (SDC) | payer OTHER, SELFPAY ==
[2021-12-08 14:59] VITALS: BMI 23.3
--- NOTE | 2021-12-14 11:57 | HO.ANESPROP2 ---
Documented by User: Supriya Chong NP 12/14/21 12:00 HPI - Anesthesia Eval Consult details Narrative: 56yo M for Shoulder Arthroscopy with subacrominal decompression Cardiac cleared: Echo done 11/08/21 shows? EF 40-45%, mild decrease in RVSF, sinus valsalva 4.5 cm, ascending aorta 3.6 cm.? Exercise stress test done 11/16/21 shows exercise 7.6 METs, no anginal symptoms and no EKG changes of ischemia. On Carvedilol for neurohormonal modulation. Clinically not in HF. Reviewed with Dr Rodriguez. Pt cleared for shoulder surgery with intermediate cardiac risk. Avoid fluid overload. Continue Carvedilol. Aspirin can be held if needed and restart when clear to do so. Call/ consult cardiology if needed. Will change his OV follow up to 3-4 mo in cardiology. [facility] Active Problems Active Problems: All Active Problems (Updated 11/15/21 @ 14:17 by Yamilet Villagran NP-C) Cardiomyopathy (Acute) Dilated aortic root (Acute) Takotsubo cardiomyopathy (Acute) H/O cardiac catheterization (Acute) Preop cardiovascular exam (Acute) Patellofemoral pain syndrome of right knee (Acute) Diarrhea (Acute) Periumbilical abdominal pain (Acute) Irritable bowel syndrome with diarrhea (Acute) GERD (gastroesophageal reflux disease) (Acute) Painful arc syndrome of right shoulder (Acute) SEN (dyspnea on exertion) (Acute) Bilateral shoulder pain (Acute) Subacromial impingement of right shoulder (Acute) Long-term insulin use in type 2 diabetes (Acute) Diabetes type 2, uncontrolled (Acute) Type 2 diabetes mellitus with diabetic polyneuropathy (Acute) Hyperlipidemia LDL goal <70 (Acute) Past Medical History Medical History Alcohol abuse BPH (benign prostatic hyperplasia) COPD (chronic obstructive pulmonary disease) Depression Diabetes type 2, uncontrolled Essential hypertension Hyperlipidemia LDL goal <70 Long-term insulin use in type 2 diabetes Myocardial infarction Peripheral neuropathy Seizures Sleep apnea Thrombocytopenia Tobacco abuse Type 2 diabetes mellitus with diabetic polyneuropathy Family History Family History Father Cancer Diabetes Mother CVD (cardiovascular disease) Surgical History Surgical History H/O colonoscopy History of arthroscopic surgery of shoulder History of esophagogastroduodenoscopy (EGD) Hx of hernia repair Hx of knee surgery Hx of pneumonectomy Social History Social History Household Members: Spouse Alcohol intake: never Patient Tobacco Use Status: Never used Tobacco Current occupational status: unemployed 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 occupation: Right Handed Meds Allergies Allergy/AdvReac Type Severity Reaction Status Date / Time naproxen [From NAPROSYN] Allergy Mild HIVES Verified 11/03/21 15:09 Home Medications Medication Instructions Recorded Confirmed Last Taken Type alcohol swabs pad topical TID 03/17/20 11/03/21 Unknown History aspirin 81 mg tablet,delayed 81 mg PO DAILY 03/17/20 11/03/21 12/11/21 History release atorvastatin 80 mg tablet 80 mg PO DAILY 03/17/20 12/15/21 Unknown History carvedilol 12.5 mg tablet 12.5 mg PO DAILY 03/17/20 12/15/21 Unknown History cholecalciferol (vitamin D3) 25 25 mcg PO QAM 03/17/20 12/15/21 Unknown History mcg (1,000 unit) tablet gabapentin 800 mg tablet 800 mg PO BID 03/17/20 12/15/21 Unknown History ipratropium 20 mcg-albuterol 100 1 puff inhalation QID 03/17/20 12/15/21 Unknown History mcg/actuation mist for inhalation lancets 33 gauge #100 ea 03/17/20 11/03/21 Unknown History mirtazapine 45 mg tablet 45 mg PO BEDTIME 03/17/20 12/15/21 Unknown History oxybutynin chloride 5 mg tablet 5 mg PO BID 03/17/20 12/15/21 Unknown History pen needle, diabetic 32 gauge x #50 ea 03/17/20 11/03/21 Unknown History sertraline 100 mg tablet 100 mg PO DAILY 12/04/20 12/15/21 Unknown History blood sugar diagnostic (FreeStyle #10 ea 11/03/21 11/03/21 Unknown History Lite Strips) esomeprazole magnesium 20 mg 20 mg PO QAM 11/03/21 12/15/21 Unknown History capsule,delayed release Exam Exam Date and Time: December 14, 2021 1157 Height,Weight and Vital Signs: Height 5 ft 9 in Weight 71.668 kg Narrative Narrative: EKG 10/2021 normal sinus rhythm, no acute ST or T-wave abnormalities, rate 78, QTC 421 millisecond ECHO 10/2021 Conclusions: - Normal left ventricular cavity size.? There is normal left ? ? ventricular wall thickness.? The left ventricular systolic ? ? ? function is mildly decreased.? The visually estimated ejection ? fraction is between 40-45%.? - E/E prime ratio is between 8 and 15 consistent with? indeterminate filling pressures. ? - Normal right ventricular cavity size.? There is mildly ? decreased right ventricular systolic function. ? - There is mild dilatation of the sinuses of Valsalva measuring? 4.50 cm and mild dilatation of the ascending aorta measuring 3.60 cm.? - Low global longitudinal strain.? Exercise Stress 10/2021 Protocol: REAGAN ? Max HR: 142 BPM? 86% of? Pred: 164 BPM Max BP: 188/074 mmHG Max Work Load: 7.6 METS ? Exercise stress test with exercise 6 min 27 sec of Reagan protocol, achieving 86% ?MPHR, 7.6 METs, with mild sob, no chest discomfort, with isolated PVCs in ?recovery, with normotensive response to exercise, without EKG changes meeting ?criteria for ischemia. Test reviewed with Dr Rodriguez. Assessment and Plan Assessment Anesthesia Assessment: Chart Reviewed Documented by User: Luis E Castellanos MD 12/15/21 15:55 HPI - Anesthesia Eval Consult details Narrative: 56yo M for Shoulder Arthroscopy with subacrominal decompression Cardiac cleared: Echo done 11/08/21 shows? EF 40-45%, mild decrease in RVSF, sinus valsalva 4.5 cm, ascending aorta 3.6 cm.? Exercise stress test done 11/16/21 shows exercise 7.6 METs, no anginal symptoms and no EKG changes of ischemia. On Carvedilol for neurohormonal modulation. Clinically not in HF. Reviewed with Dr Rodriguez. Pt cleared for shoulder surgery with intermediate cardiac risk. Avoid fluid overload. Continue Carvedilol. Aspirin can be held if needed and restart when clear to do so. Call/ consult cardiology if needed. Will change his OV follow up to 3-4 mo in cardiology. tingling in RUE , restricted RUE movement . [facility] Past Medical History Medical History Alcohol abuse BPH (benign prostatic hyperplasia) COPD (chronic obstructive pulmonary disease) Depression Diabetes type 2, uncontrolled Essential hypertension Hyperlipidemia LDL goal <70 Long-term insulin use in type 2 diabetes Myocardial infarction Peripheral neuropathy Seizures Sleep apnea Thrombocytopenia Tobacco abuse Type 2 diabetes mellitus with diabetic polyneuropathy Family History Family History Father Cancer Diabetes Mother CVD (cardiovascular disease) Family history of problems with anesthesia: No Surgical History Surgical History H/O colonoscopy History of arthroscopic surgery of shoulder History of esophagogastroduodenoscopy (EGD) Hx of hernia repair Hx of knee surgery Hx of pneumonectomy History of Problems with Anesthesia: No Social History Social History Household Members: Spouse Alcohol intake: never Patient Tobacco Use Status: Never used Tobacco Current occupational status: unemployed 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 occupation: Right Handed Meds Allergies Allergy/AdvReac Type Severity Reaction Status Date / Time naproxen [From NAPROSYN] Allergy Mild HIVES Verified 11/03/21 15:09 Home Medications Medication Instructions Recorded Confirmed Last Taken Type alcohol swabs pad topical TID 03/17/20 11/03/21 Unknown History aspirin 81 mg tablet,delayed 81 mg PO DAILY 03/17/20 11/03/21 12/11/21 History release atorvastatin 80 mg tablet 80 mg PO DAILY 03/17/20 12/15/21 Unknown History carvedilol 12.5 mg tablet 12.5 mg PO DAILY 03/17/20 12/15/21 Unknown History cholecalciferol (vitamin D3) 25 25 mcg PO QAM 03/17/20 12/15/21 Unknown History mcg (1,000 unit) tablet gabapentin 800 mg tablet 800 mg PO BID 03/17/20 12/15/21 Unknown History ipratropium 20 mcg-albuterol 100 1 puff inhalation QID 03/17/20 12/15/21 Unknown History mcg/actuation mist for inhalation lancets 33 gauge #100 ea 03/17/20 11/03/21 Unknown History mirtazapine 45 mg tablet 45 mg PO BEDTIME 03/17/20 12/15/21 Unknown History oxybutynin chloride 5 mg tablet 5 mg PO BID 03/17/20 12/15/21 Unknown History pen needle, diabetic 32 gauge x #50 ea 03/17/20 11/03/21 Unknown History sertraline 100 mg tablet 100 mg PO DAILY 12/04/20 12/15/21 Unknown History blood sugar diagnostic (FreeStyle #10 ea 11/03/21 11/03/21 Unknown History Lite Strips) esomeprazole magnesium 20 mg 20 mg PO QAM 11/03/21 12/15/21 Unknown History capsule,delayed release Exam Airway Mallampati Class: III TM Dist: >3cm Neck ROM: Full Loose/Missing/Broken Teeth: Yes (Chipped multiple , poor dentition globally ) Heart: S1,S2 Lungs: b/l breath sounds Assessment and Plan Assessment Anesthesia Assessment: Anesthesia Plan Discussed Final Anesthetic Review Family History of Problems with Anesthesia: No History of Problems with Anesthesia: No NPO: Yes ASA Class: III Final Preanesthetic Review: Meds/Allgs Chart Reviewed, Consent Obtained/Reviewed and Anes Risks/Benef Reviewed Patient Risk: Intermediate Procedure Risk: Intermediate Anesthetic Plan Anesthetic Plan: GA and Regional Block Disposition: Standard PACU
[2021-12-15] VITALS (7 sets, daily range): BP systolic 125–154; BP diastolic 76–90; PULSE 64–77; RESP 16–18; TEMP 36.1–36.7; O2SAT 95–99
[2021-12-15 08:56] LABS: Glucose, Whole Blood 314 mg/dL (60-115)
[2021-12-15] MEDS: Lactated Ringers 1,000 ML 50 ML IVCONT (09:00)
[2021-12-15 09:36] LABS: Hematocrit 40.2 % (42.0-52.0); Mean Corpuscular HGB Conc 32.3 g/dl (31.0-36.0); Mean Corpuscular Hemoglobin 27.3 pg (27.0-33.0); Mean Corpuscular Volume 84.3 fL (80.0-98.0); Platelet Count 125 X10*3/uL (160-400); Red Blood Count 4.77 X10*6/uL (4.60-5.80); Red Cell Distribution Width 13.6 % (11.0-16.0); White Blood Count 5.4 X10*3/uL (4.8-10.8)
--- NOTE | 2021-12-15 09:42 | MHC.SHP ---
Pre-Procedural Eval Section A Date of Service: 12/15/21 The patient is an INPATIENT: No Changes since office visit: No Cold of Flu in the past 2 weeks, No New Medical Problems, No Changes in Medication and No Patient answered all questions The History & Physical has been completed within 30 days and I have reviewed it.: Yes Section B Chief Complaint: shoulder impingment Allergies: Allergies Allergy/AdvReac Type Severity Reaction Status Date / Time naproxen [From NAPROSYN] Allergy Mild HIVES Verified 11/03/21 15:09 Plan I have reviewed the history and physical and performed a pertinent physical examination on my patient. No changes have occurred unless specified.
[2021-12-15 09:49] LABS: Anion Gap 12 (12-20); Blood Urea Nitrogen 15 mg/dL (9-16); Calcium 8.5 mg/dL (8.4-10.2); Carbon Dioxide 25 mmol/L (22-29); Chloride 108 mmol/L (96-108); Creatinine Clr Calc Pharmacy 80.8; Estimated Glomerular Filt Rate > 60; Glucose Fasting 342 mg/dL (60-99); Potassium 4.4 mmol/L (3.3-5.1); Sodium 141 mmol/L (135-145)
[2021-12-15] MEDS: Insulin Lispro 100 UNIT/ML 3 ML VIAL SUBCUT (10:00)
--- NOTE | 2021-12-15 10:14 | PC.NURSE ---
dr nick aware of bs 314 5 units insulin given per order recheck in pacu bs per anesthesia dr juárez aware also
--- NOTE | 2021-12-15 10:38 | PC.NURSE ---
nerve blocked complted by dr nick nad
[2021-12-15 11:25] LABS: Glucose, Whole Blood 195 mg/dL (60-115)
[2021-12-15] MEDS: carvediloL 12.5 MG TABLET PO (11:41)
--- NOTE | 2021-12-15 13:08 | P.BOP_ITS ---
Brief Operative Note Date of Service: 12/15/21 Pre-op diagnosis: Right shoulder WALESKA Post-op diagnosis: same Procedure: Right shoulder SAD Surgeon: Tomy Vee MD Anesthesia: GETA and regional Was an Occupational Therapist Per Diem used for this Procedure?: No Estimated blood loss (mL): 20 IV fluids (mL): 800 Pathology: none sent Condition: stable Disposition: PACU
--- NOTE | 2021-12-20 16:30 | P.OP_ITS ---
Operative Note Operative Note Date of Service: 12/15/21 Narrative: Date of Service: 12/15/21 Pre-op diagnosis: Right shoulder WALESKA Post-op diagnosis: same Procedure: Right shoulder SAD Surgeon: Tomy Vee MD Anesthesia: GETA and regional Was an Licensed Mortician used for this Procedure?: No Estimated blood loss (mL): 20 IV fluids (mL): 800 Pathology: none sent Condition: stable Disposition: PACU Procedure in detail: Patient was brought to the operating room and placed the the beach chair position. All bony prominences were well padded and the limb was prepped and draped in standard sterile fashion. A time out was called to identify proper site, proper procedure and proper surgeon. IV antibiotics per weight were administered. I began by making a posterolateral stab incision with a 15 blade. A blunt trochar was placed into the glenohumeral joint and I insufflated the joint with saline and a 30 degree arthroscope was placed. I established an outside- in anterior portal just distal to the biceps tendon. I then began my inspection of the glenohumeral joint. The glenohumeral cartilage was intact. The subcapularis was intact. The biceps-labral complex was intact. I then removed the trochar and entered the subacromial space. A direct lateral portal was then established and I performed a bursectomy. There was florrid bursitis. The cuff was then examined. There was mild fraying but the cuff was intact. I then performed a 5 mm subacromial decompression and a limited coracoacromial release.. Once I was satisfied with the decompression and bursectomy, final images were captured and I removed all instrumentation. Portals were closed with nylon. Patient was placed in an abduction sling, extubated and brought to the recovery room in stable condition. There were no known complications.
== END 2021-12-15 14:52 | disposition home or self-care (01) ==
PROVIDERS: Nurse Practitioner; PCP Student in an Organized Health Care Education/Training Program; Visit Provider Orthopaedic Surgery
PROC: (CPT 29805; principal; 2021-12-15 10:20)
DX: M75.41 Impingement syndrome of right shoulder (principal); I10 Essential (primary) hypertension; J44.9 Chronic obstructive pulmonary disease, unspecified; E78.5 Hyperlipidemia, unspecified; I25.2 Old myocardial infarction; F32.A Depression, unspecified; E11.42 Type 2 diabetes mellitus with diabetic polyneuropathy; Z79.4 Long term (current) use of insulin; Z79.82 Long term (current) use of aspirin; Z79.899 Other long term (current) drug therapy; Z88.8 Allergy status to other drugs, medicaments and biological substances
CPT/HCPCS: 29822; 29826; 36415; 80048; 82947; 85027; J0690; J1100; J2250; J2370; J2405; J2795; J3010

== ENCOUNTER 2022-02-04 14:00 | Outpatient (RCR) | payer OTHER, SELFPAY ==
--- NOTE | 2021-12-20 11:56 | MHC.PT.EP ---
[facility] [place] Office [place] Office [place] Office [address] Marvin Garcia [address] [phone] F: [phone] F: [phone] F: [phone] F: [phone] Physical Therapy Plan of Care Date of Evaluation: Date of Surgery: 12/15/21 Diagnosis: SUBACROMIAL DECOMPRESSION (KP) Assessment: PEYTON IS A PLEASANT 56 YO GENTLEMAN WHO PRESENTS POD #5 FOR ORTHOPEDIC FOLLOW UP AND PT EVALUATION. UPON EXAM HE DEMONSTRATES THE EXPECTED IMPAIRMENTS OF DECREASED ROM, DECREASED STRENGTH, ALTERED POSTURE AND POSITIONING, INCREASED UPPER TRAP GUARDING, AND INCREASED PAIN AND EDEMA. FUNCTIONAL LIMITATIONS INCLUDE DECREASED ABILITY TO PERFORM HOMEMAKING AND SELF-CARE TASKS, DECREASED ABILITY TO PERFORM PUSHING, PULLING, LIFTING AND REACHING. INABILITY TO DRIVE AND PERFORM WORK TASKS, DECREASED PARTICIPATION IN COMMUNITY AND RECREATIONAL ACTIVITIES AND DISRUPTED SLEEP. THE PT IS A GOOD CANDIDATE FOR SKILLED PT DUE TO AGE, POTENTIAL REMEDIATION OF IMPAIRMENTS, TYPICAL DISEASE/CONDITION PROGRESSION AND PROGNOSIS, COMORBIDITIES, AND MOTIVATION. PT WOULD BENEFIT FROM TAILORED PROGRAM OF THERAPEUTIC ACTIVITIES, FUNCTIONAL TRAINING,, POSTURAL EDUCATION, NEUROMUSCULAR RE-EDUCATION, AND MODALITIES NEEDED. Frequency and Duration: The patient will be seen 2 X WEEK FOR 6 WEEKS Short Term Goals: INITIATE HEP AND PROMOTE SELF MANAGEMENT OF SYMPTOMS Upper Cutter Out Goals: FULL, PAIN FREE ROM FULL UE STRENGTH, PAIN FREE TO PERFORM SELF CARE TASKS WITHOUT RESTRICTION AND PAIN NO GREATER THAN 2/[address] OBJECT AT MINIMUM OF 5# INTO CABINET AT SHOULDER HEIGHT Treatment Plan: Modalities to reduce pain, spasms and effusion. Manual therapy to restore motion and function. Therapeutic exercise to improve strength and flexibility. Neuromuscular re-education for posture and balance. Therapeutic activities to return to functional activities of daily living. Electronically signed by: Fiona Francisco PT,DPT Please sign and return to therapist. Thank you for your referral.
--- NOTE | 2022-03-28 12:15 | MHC.PT.DC ---
[facility] [place] Office [place] Office [place] Office [address] Marvin Garcia [address] [phone] F: [phone] F: [phone] F: [phone] F: [phone] Physical Therapy Discharge Report Diagnosis: SUBACROMIAL DECOMPRESSION (KP) Date of Surgery: 12/15/21 Date of Evaluation: 12/20/21 Date of Discharge: 03/28/22 Treatments to Date: 4 Cancellations to Date: 4 No Shows to Date: 2 Discharge Status: Discharge Summary: At last attended visit Aravind states that he has had transportation and health issues. He has not been able to attend for over 3 wks. Pt reports not been doing HEP daily and reporting increased pain, family is frustrated by lack of progress. Ed on importance of consistency with HEP to progress pain and ROM. At last visit, he was able to complete all exercises w/o c/o pain and was encouraged to perform all therex regularly at home. Electronically signed by: Fiona Francisco PT, DPT Please sign and return to therapist. Thank you for your referral.
== END 2022-05-23 10:01 | disposition home or self-care (01) ==
LOC: HO.PT 14:00
PROVIDERS: Visit Provider Physician Assistant
DX: M75.41 Impingement syndrome of right shoulder (principal)
CPT/HCPCS: 97110; 97140; 97161; 97530

== ENCOUNTER → 2022-02-24 14:24 | Outpatient (BNVA) | payer OTHER, SELFPAY | PROVIDERS: PCP Student in an Organized Health Care Education/Training Program; Referring Provider Student in an Organized Health Care Education/Training Program; Visit Provider Internal Medicine Cardiovascular Disease | DX: I42.9 Cardiomyopathy, unspecified (principal) | CPT/HCPCS: 99212 ==

== ENCOUNTER → 2022-03-16 12:33 | Outpatient (REF) | payer OTHER, SELFPAY ==
--- NOTE | 2022-03-16 12:37 | CA_ITS ---
Transthoracic Echocardiogram Patient (Last, First, Middle): Aravind Mosqueda, Gender: Male Date of : 1965 Age: 56 Procedure Date: 03/16/2022 Procedure Type: Transthoracic Echocardiogram Location: OP Height: 175.26 cm Weight: 68.95 kg BSA: 1.84 m2 Heart Rate: 70 bpm BP: 130 / 70 mmHg Tar Roofer: TO Referring MD: Dandy Rodriguez MD Director Long Term Care: Dandy Rodriguez MD Symptoms: I42.9 - Cardiomyopathy, unspecified Study Quality: Good ECG Rhythm: Sinus Conclusions: - Normal biventricular systolic function. - LOw global longitudinal strain -13%. Findings Left Ventricle Normal left ventricular size, thickness, systolic function, and wall motion. The visually estimated ejection fraction is between 55-60%. Diastolic function is indeterminate on the basis of available data. Right Ventricle Normal right ventricular cavity size and systolic function. Pericardium/Pleural Prominent epicardial adipose tissue noted. There is no evidence of pericardial effusion. Measurements 2D Linear Measurements IVSd: 1.10 0.6-0.9/0.6-1.0 cm LVIDd: 4.63 3.9-5.3/4.2-5.9 cm LVIDd Index: 2.52 2.4-3.2/2.2-3.1 cm/m2 LVIDs: 3.10 2.0-3.6 cm LVPWd: 0.73 0.7-1.1 cm LA Diam: 3.00 2.7-3.8/3.0-4.0 cm LAIDs Index: 1.63 1.5-2.3 cm/m2 LV Mass: 176.76 67-162/88-224 g LV Mass Index: 96.06 43-95/49-115 g/m2 LVOT Diam: 2.20 3.0+(-)1.3 cm 2D Systolic Function EF 4C: 56.40 >55% EF 2C: 50.40 >55% EF BiP: 53.10 >55% LVOT LVOT Pk Micheal: 0.77 LVOT Mn Micheal: 0.51 LVOT VTI: 0.16 LVOT Pk Grad: 2.00 LVOT Mn Grad: 1.00 LVOT Diam: 2.20 LVOT Area: 3.80 Updated in Other Vendor System with Status of Final Dandy Rodriguez MD electronically signed on 03/16/2022 7:00:01 PM with status of Final
== END ==
LOC: HO.CARD 12:33
PROVIDERS: PCP Student in an Organized Health Care Education/Training Program; Visit Provider Internal Medicine Cardiovascular Disease
DX: I42.9 Cardiomyopathy, unspecified (principal)
CPT/HCPCS: 93308; 93356

== ENCOUNTER → 2022-06-09 12:38 | Outpatient (BNVA) | payer OTHER, SELFPAY | PROVIDERS: PCP Student in an Organized Health Care Education/Training Program; Visit Provider Physician Assistant | DX: M75.41 Impingement syndrome of right shoulder (principal); E11.9 Type 2 diabetes mellitus without complications | CPT/HCPCS: 20610; 99212; J1020 ==

== ENCOUNTER → 2022-07-20 13:53 | Outpatient (BNVA) | payer OTHER, SELFPAY | PROVIDERS: PCP Student in an Organized Health Care Education/Training Program; Visit Provider Nurse Practitioner | DX: I42.9 Cardiomyopathy, unspecified (principal); K58.0 Irritable bowel syndrome with diarrhea; K21.9 Gastro-esophageal reflux disease without esophagitis; R10.33 Periumbilical pain | CPT/HCPCS: 93005; 99212 ==

== ENCOUNTER → 2022-08-10 14:07 | Outpatient (BNVA) | payer OTHER, SELFPAY | PROVIDERS: PCP Student in an Organized Health Care Education/Training Program; Visit Provider Nurse Practitioner | DX: K58.0 Irritable bowel syndrome with diarrhea (principal); R10.33 Periumbilical pain; K21.9 Gastro-esophageal reflux disease without esophagitis | CPT/HCPCS: 99212 ==

== ENCOUNTER 2022-10-19 10:03 | Outpatient (REF) | payer OTHER, SELFPAY ==
--- NOTE | ~2022-10-19 | US_ITS ---
EXAMINATION: US ABDOMEN LIMITED CLINICAL INFORMATION: Right upper quadrant pain. COMPARISON: CT abdomen and pelvis 11/05/2020. Renal ultrasound 04/22/2014. TECHNIQUE: Real-time imaging of the right upper quadrant abdominal viscera. FINDINGS: PANCREAS: Normal. LIVER: The liver is normal in size. The liver contour is normal. The previously seen 1.5 cm hemangioma on the 2020 CT scan (prior CT 3:11) in the left lobe of the liver is not visualized on the current study and no focal hepatic lesion is seen. There is no intrahepatic biliary duct dilatation seen. GALLBLADDER: Normal. The gallbladder is physiologically distended without evidence of stones, sludge, polyps, wall thickening or pericholecystic fluid. COMMON BILE DUCT: Normal in caliber measuring 0.7 cm in diameter. RIGHT KIDNEY: No hydronephrosis. No renal calculi or focal parenchymal lesions. The kidney measures 10.8 cm in maximum dimension. FREE FLUID: None. US/US abdomen limited IMPRESSION: Negative exam. A cause for the patient's right upper quadrant pain has not been found.
== END 2022-10-19 10:04 | disposition home or self-care (01) ==
LOC: HO.US 10:03
PROVIDERS: PCP Student in an Organized Health Care Education/Training Program; Visit Provider Student in an Organized Health Care Education/Training Program
DX: R10.11 Right upper quadrant pain (principal)
CPT/HCPCS: 76705

== ENCOUNTER 2022-10-27 08:37 | Emergency (ER) | payer OTHER, SELFPAY ==
--- NOTE | ~2022-10-27 | CT_ITS ---
EXAMINATION: CT ABDOMEN AND PELVIS WITHOUT CONTRAST CLINICAL INFORMATION: Abdominal pain. COMPARISON: Abdominal ultrasound dated 10/19/[address] scan of the abdomen and pelvis dated 11/05/2020. TECHNIQUE: Multidetector volumetric imaging was performed from the superior aspect of the liver through the pubic symphysis. Sagittal and coronal reformatted images were obtained on the technologist's workstation. Lack of intravenous and oral contrast limits visceral evaluation. Mild motion artifact also limits evaluation. This CT examination was performed using dose optimization techniques as appropriate, variously including the following: *Automated exposure control *Adjustment of mA and/or kV according to patient size (this includes techniques or standardized protocols for targeted exams where dose is matched to indication/reason for exam; i.e. extremities or head) *Use of iterative reconstruction technique DLP: 406 mGy-cm FINDINGS: LUNG BASES: Trace left pleural effusion. No right pleural or pericardial effusions are seen. LIVER, GALLBLADDER, AND BILIARY TREE: Unremarkable. PANCREAS: Unremarkable. SPLEEN: Unremarkable. ADRENAL GLANDS: Unremarkable. KIDNEYS AND URETERS: The left kidney shows a noncalcified fluid attenuation focus in the lower pole measuring 1.2 cm (image 29, series 3). No nephrolithiasis or hydroureteronephrosis bilaterally. BLADDER: Mild to moderately distended without focal mural or intraluminal abnormality. GASTROINTESTINAL TRACT: The stomach, small bowel and appendix are unremarkable. The colon and rectum are unremarkable. ABDOMINAL WALL: No significant hernia is appreciated. LYMPH NODES: No lymphadenopathy. VASCULAR: Unremarkable. PELVIC VISCERA: Mild prostamegaly. OSSEOUS STRUCTURES: Unremarkable. CT/CT abdomen pelvis wo IV con IMPRESSION: 1. No acute intra-abdominal/pelvic abnormality to explain the patient's pain. 2. Trace left pleural effusion. 3. Small left lower pole renal cyst demonstrates benign features. 4. Mild prostamegaly.
[2022-10-27 09:02] VITALS: BP 164/97; PULSE 66; RESP 16; TEMP 36.3; O2SAT 98; BMI 21.7
[2022-10-27 09:21] LABS: MANUAL DIFF FLAG NO
[2022-10-27 09:26] LABS: Basophils Absolute Auto 0.1 X10*3/uL (0.0-0.2); Eosinophils Absolute Auto 0.4 X10*3/uL (0.0-0.4); Eosinophils Percent Auto 7.4 % (0-4); Hematocrit 43.8 % (42.0-52.0); Imm Gran Abs Auto 0.01 X10*3/uL (0.00-0.03); Imm Gran Pct Auto 0.2 % (0.0-0.4); Lymphocytes Absolute Auto 1.7 X10*3/uL (1.2-4.9); Lymphocytes Percent Auto 34.4 % (20-40); Mean Corpuscular Hemoglobin 26.9 pg (27.0-33.0); Mean Corpuscular Volume 84.2 fL (80.0-98.0); Mean Platelet Volume 11.7 fL (9.4-12.4); Monocytes Absolute Auto 0.4 X10*3/uL (0.1-1.2); Neutrophils Absolute Auto 2.4 x10*3/uL (2.0-8.3); Platelet Count 129 X10*3/uL (160-400)
[2022-10-27 09:43] LABS: Alanine Aminotransferase 13 U/L (0-40); Albumin Level 4.2 g/dL (3.5-5.0); Alkaline Phosphatase 103 U/L (39-117); Anion Gap 11 (12-20); Aspartate Amino Transferase 12 U/L (5-37); Bilirubin Total 0.5 mg/dL (0.0-1.0); Blood Urea Nitrogen 12 mg/dL (9-16); Calcium 10.1 mg/dL (8.4-10.2); Carbon Dioxide 31 mmol/L (22-29); Chloride 104 mmol/L (96-108); Creatinine Clr Calc Pharmacy 87.3; Estimated Glomerular Filt Rate > 60; Glucose Random 317 mg/dL (60-115); Lipase 32 U/L (8-78); Potassium 5.4 mmol/L (3.3-5.1); Sodium 141 mmol/L (135-145); Total Protein 6.7 g/dL (6.5-8.0)
[2022-10-27 10:48] VITALS: BP 152/80; PULSE 62; RESP 16; O2SAT 98
--- NOTE | 2022-10-27 11:52 | ECG_ITS ---
Test Reason : hyperkalemia Blood Pressure : / mmHG Vent. Rate : 054 BPM Atrial Rate : 054 BPM P-R Int : 162 ms QRS Dur : 076 ms QT Int : 408 ms P-R-T Axes : 055 031 063 degrees QTc Int : 386 ms Sinus bradycardia Otherwise normal ECG When compared with ECG of 21-SEP-2017 02:33, Vent. rate has decreased BY 34 BPM Borderline criteria for Anterior infarct are no longer Present Borderline criteria for Anterolateral infarct are no longer Present Nonspecific T wave abnormality no longer evident in Anterolateral leads QT has shortened Referred By: Katia Barker Electronically Signed By:Dandy Rodriguez
--- NOTE | 2022-10-27 11:54 | ED.ABDPAIN ---
HPI - Abdominal Pain General Chief Complaint: Abdominal Pain Stated Complaint: r side pain not eating Time Seen by Provider: 10/27/22 10:22 Source: patient and RN notes reviewed Mode of arrival: ambulatory Limitations: no limitations History of Present Illness HPI narrative: This is a 57-year-old [place]-speaking male, with a past medical history of diabetes, cardiomyopathy, GERD presenting to the emergency department with right-sided abdominal pain x3 months. Patient has been follow-up by his development writer where he last had ultrasound done on Monday which was normal. Patient reports that the pain occurs every day and worsens at night. He admits that over the last 3 days he has had some dysuria, and urinary frequency, denies hematuria. Patient states that he has had nausea and has been unable to eat as his pain worsens with eating. Denies any fevers, chills, chest pain, shortness of breath, vomiting. No diarrhea, no constipation. No bloody or black stool. No other complaints or concerns at this time. MD elicited complaint: abdominal pain Pertinent past history: none Onset (ago): month(s) Pain Consistency: constant Location: RUQ Quality: cramping Radiation: none Migration to: no migration Exacerbating factors: eating Relieving factors: nothing Associated symptoms: nausea Related Data Home Medications Medication Instructions Recorded Confirmed aspirin 81 mg tablet,delayed 81 mg PO DAILY 03/17/20 07/20/22 release atorvastatin 80 mg tablet 80 mg PO DAILY 03/17/20 07/20/22 carvedilol 12.5 mg tablet 12.5 mg PO DAILY 03/17/20 07/20/22 cholecalciferol (vitamin D3) 25 25 mcg PO QAM 03/17/20 07/20/22 mcg (1,000 unit) tablet gabapentin 800 mg tablet 800 mg PO BID 03/17/20 07/20/22 ipratropium 20 mcg-albuterol 100 1 puff inhalation QID 03/17/20 07/20/22 mcg/actuation mist for inhalation lancets 33 gauge #100 ea 03/17/20 07/20/22 mirtazapine 45 mg tablet 45 mg PO BEDTIME 03/17/20 07/20/22 oxybutynin chloride 5 mg tablet 5 mg PO BID 03/17/20 07/20/22 pen needle, diabetic 32 gauge x #50 ea 1107/20/22 blood sugar diagnostic (FreeStyle #10 ea 11/03/21 07/20/22 Lite Strips) esomeprazole magnesium 20 mg 20 mg PO QAM 11/03/21 07/20/22 capsule,delayed release ibuprofen 800 mg tablet 800 mg PO BID 02/24/22 07/20/22 ammonium lactate 12 % lotion topical 07/20/22 07/20/22 umeclidinium 62.5 mcg/actuation 1 inh inhalation DAILY 07/20/22 07/20/22 blister powder for inhalation (Incruse Ellipta) sertraline 50 mg tablet 50 mg PO DAILY 08/10/22 Previous Rx's Medication Instructions Recorded blood-glucose meter (FreeStyle #1 ea 05/25/21 Lite Meter kit) dulaglutide 1.5 mg/0.5 mL 1.5 mg (0.5 mL) subcut QWEEK #2 mL 12/21/21 subcutaneous pen injector (QReca!) blood pressure monitor #1 ea 02/27/22 metformin 1,000 mg tablet 1,000 mg PO BID #60 tabs 04/05/22 insulin glargine U-300 conc 300 7 unit (0.0233 mL) subcut DAILY 54 04/13/22 unit/mL (1.5 mL) subcutaneous pen days #1.5 mL dicyclomine 20 mg tablet 20 mg PO QID #120 tabs 07/07/22 eluxadoline 75 mg tablet (Viberzi) 75 mg PO BID #60 tabs 08/10/22 famotidine 40 mg tablet See Rx Instructions .Route 10/24/22 .COMPLEX #30 tabs Allergies Allergy/AdvReac Type Severity Reaction Status Date / Time naproxen [From NAPROSYN] Allergy Mild HIVES Verified 10/27/22 09:10 Review of Systems Review of Systems Constitutional: No Weight loss, No Fever, No Chills, No Night Sweats, No Fatigue, No Malaise ENT/Mouth: No Hearing loss, No Ear Pain, No Nasal Congestion, No Sinus Pain, No Hoarseness, No sore throat, No Rhinorrhea, No Swallowing Difficulty Eyes: No Eye Pain, No Swelling, No Redness, No Foreign Body, No Discharge, No Vision Changes Cardiovascular: No Chest Pain, No SOB, No Dyspnea on Exertion, No Orthopnea, No Edema, No Palpitations Respiratory: No Cough, No Sputum, No Wheezing, No Smoke Exposure, No Dyspnea Gastrointestinal: + Nausea, No Vomiting, No Diarrhea, No Constipation, + Abdominal pain, No Hematochezia, No Melena Genitourinary: No irregular bleeding, No Dysuria, No Urinary Frequency, No Hematuria, No Urinary Incontinence/retention, No Urgency, No Flank Pain, No Urinary Flow Changes, No Hesitancy Musculoskeletal: No joint pain, No Myalgias, No Joint Swelling Skin: No Skin Lesions, No rash Neuro: No Weakness, No Numbness, No Paresthesias, No Loss of Consciousness, No Dizziness, No Headache Psych: No Anxiety/Panic, No Depression, No SI/HI/AH/VH, No Social Issues, Heme/Lymph: No Bruising, No Bleeding,No Lymphadenopathy Endocrine: No Polyuria, No Polydipsia, No Temperature Intolerance Yes all other systems are reviewed and are negative Constitutional: Reports as per [facility] Past Medical History Medical History Alcohol abuse BPH (benign prostatic hyperplasia) COPD (chronic obstructive pulmonary disease) Depression Diabetes type 2, uncontrolled Essential hypertension Hyperlipidemia LDL goal <70 Long-term insulin use in type 2 diabetes Myocardial infarction Peripheral neuropathy Seizures Sleep apnea Thrombocytopenia Tobacco abuse Type 2 diabetes mellitus with diabetic polyneuropathy Surgical History H/O colonoscopy History of arthroscopic surgery of shoulder History of esophagogastroduodenoscopy (EGD) Hx of hernia repair Hx of knee surgery Hx of pneumonectomy Hx of shoulder surgery Family History Family History Father Cancer Diabetes Mother CVD (cardiovascular disease) Social History Social History Household Members: Spouse Alcohol intake: never Patient Tobacco Use Status: Never used Tobacco Smoked in Last 30 Days: No Use of substances other than those prescribed or required for medical reasons: No Advance Directives: No Advance Directives Information Provided: Yes Current occupational status: unemployed Current occupation: Right Handed Physical Exam ED Vital Signs: Vital Signs - 24 hr 10/27/22 09:02 10/27/22 10:48 10/27/22 12:18 Temperature 97.4 F Pulse Rate 66 62 63 Respiratory Rate 16 16 14 Blood Pressure 164/97 H 152/80 H 133/85 Pulse Oximetry 98 98 97 Oxygen Delivery Method Room Air Room Air Room Air 10/27/22 15:21 Temperature Pulse Rate 60 Respiratory Rate 14 Blood Pressure 154/87 H Pulse Oximetry 96 Oxygen Delivery Method BMI result Body Mass Index 21.7 Const General: cooperative, comfortable and no acute distress Orientation/consciousness: patient oriented x3 Limitations: no limitations HENOR Head: Yes normal to inspection, Yes normocephalic and Yes atraumatic Ears: hearing grossly normal bilaterally General nose exam: Normal external nose present Face and sinus: Yes normal facial exam Mouth: Normal oral and palatal mucosa present, oropharynx normal and moist mucous membranes Throat: Yes posterior oropharynx normal Eyes General: appearance normal, both eyes and all related structures Eyelids: Yes eyelids normal Conjunctivae: conjunctivae normal Sclerae: sclerae normal Pupils: Equal, round and reactive pupils present EOM: EOMs intact bilaterally Neck Neck: Yes normal visual inspection, Yes full ROM and Yes no lymphadenopathy Lymphatic: no lymphadenopathy noted Chest Chest palpation & inspection: normal inspection of the chest Resp Effort & Inspection: normal respiratory effort and able to speak in complete sentences Auscultation: clear to auscultation bilaterally, no crackles, no rales, no rhonchi and no wheezes Cardio Rate: regular rate Rhythm: regular rhythm Heart sounds: S1 normal heart sound present and S2 normal heart sound present GI Other: Abdomen is soft, tenderness to palpation in the right mid and upper quadrant. No rebound or guarding, hyperactive bowel sounds present in all 4 quadrants. Inspection: Yes normal to inspection Skin General skin exam: no rashes or lesions noted Trauma: no lacerations or abrasions Wounds: no wounds Neuro General: patient oriented x3 and moves all extremities Cranial nerves: Yes Equal, round and reactive pupils present Extrem General: Yes normal to inspection Right upper extremity: normal to inspection Left upper extremity: normal to inspection Right lower extremity: normal to inspection Left lower extremity: normal to inspection Course Reevaluation(s) Reevaluation #1: Abdominal CT scan shows no acute intra-abdominal or pelvic abnormality to explain patient's pain, and small left lower pole renal cyst that appears benign. Mild prostatomegaly. Labs unremarkable, no leukocytosis. Patient is mildly hyperkalemic at 5.4. Time: 14:19 Reevaluation #2: Patient reports that he is feeling better after receiving fluids and Zofran. CT returns without any intra-abdominal pelvic abnormality. Discussed results with patient and were upset as we were unable to find a reason for his pain. Patient has had an unremarkable ultrasound out patient has been closely following up with GI specialist. Given no leukocytosis and chemistry abnormality of potassium 5.4, will medicate with Lokelma p.o. prior to discharge. Patient advised to follow-up with primary care physician and GI specialist in 3-5 days to ensure that his potassium levels have regulated. Urinalysis is still pending, however patient is stable for discharge. Will call with any abnormal results from urinalysis. Patient stable for discharge. Time: 15:33 Medical Decision Making Medical Decision Making MDM Narrative: 57-year-old male presenting to the emergency department with ongoing right upper quadrant and right mid quadrant pain. Patient had ultrasound performed on Monday which was normal. Patient endorses nausea and decreased appetite secondary to the pain worsening. On arrival, patient mildly hypertensive at 164/97, patient is afebrile. Patient has tenderness palpation in the right upper quadrant. Patient had recent outpatient ultrasound which was unremarkable. I do not think it is necessary to repeat as this was done within the last week and patient has had no changes in his symptoms. Plan: Labs, UA, CT abdomen without contrast Differential Diagnosis Differential Diagnoses: The differential diagnosis associated with the presentation includes Irritable bowel syndrome, Pyelonephritis, biliary colic, urinary tract infection, mass, diverticulitis, diverticulosis Lab Data MDM Lab Attestation statement: I reviewed the patient's lab results. See above 10/27/22 09:18 10/27/22 09:18 Labs: Lab Results 10/27/22 10/27/22 10/27/22 Range/Units 09:18 09:18 15:34 WBC 5.0 (4.8-10.8) X10*3/uL RBC 5.20 (4.60-5.80) X10*6/uL Hgb 14.0 (14.0-18.0) g/dl Hct 43.8 (42.0-52.0) % MCV 84.2 (80.0-98.0) fL MCH 26.9 L (27.0-33.0) pg MCHC 32.0 (31.0-36.0) g/dl RDW 13.0 (11.0-16.0) % Plt Count 129 L (160-400) X10*3/uL MPV 11.7 (9.4-12.4) fL Immature Gran % (Auto) 0.2 (0.0-0.4) % Neut % (Auto) 49.0 (45-73) % Lymph % (Auto) 34.4 (20-40) % [place] % (Auto) 8.0 (2-11) % Eos % (Auto) 7.4 H (0-4) % Baso % (Auto) 1.0 (0-2) % Lymph # (Auto) 1.7 (1.2-4.9) X10*3/uL [place] # (Auto) 0.4 (0.1-1.2) X10*3/uL Eos # (Auto) 0.4 (0.0-0.4) X10*3/uL Baso # (Auto) 0.1 (0.0-0.2) X10*3/uL Abs Immat Gran (auto) 0.01 (0.00-0.03) X10*3/uL Absolute Neuts (auto) 2.4 (2.0-8.3) x10*3/uL Absolute Nucleated RBC 0.000 (0.0-0.012) X10*3/uL Nucleated RBC % (auto) 0.0 (0.0-0.2) /100WBC Sodium 141 (135-145) mmol/L Potassium 5.4 H D (3.3-5.1) mmol/L Chloride 104 (96-108) mmol/L Carbon Dioxide 31 H (22-29) mmol/L Anion Gap 11 L (12-20) BUN 12 (9-16) mg/dL Creatinine 0.88 (0.5-1.4) mg/dL Estim Creat Clear Calc 87.3 Estimated GFR > 60 Random Glucose 317 H (60-115) mg/dL Calcium 10.1 D (8.4-10.2) mg/dL Total Bilirubin 0.5 (0.0-1.0) mg/dL AST 12 (5-37) U/L ALT 13 (0-40) U/L Alkaline Phosphatase 103 (39-117) U/L Total Protein 6.7 (6.5-8.0) g/dL Albumin 4.2 (3.5-5.0) g/dL Lipase 32 (8-78) U/L Urine Color Yellow Urine Appearance Clear Urine pH 7.5 (5.0-9.0) Ur Specific Rake 1.025 (1.005-1.025) Urine Protein Negative (Neg-Trace) mg/dL Urine Glucose (UA) >=1000 H (Negative) mg/dL Urine Ketones Negative (Negative) mg/dL Urine Blood Negative (Negative) Urine Nitrite Negative (Negative) Ur Leukocyte Esterase Negative (Negative) Urine RBC 0-2 (0-2) /HPF Urine WBC 0-5 (0-5) /HPF Ur Squamous Epith Cells 0-2 (0-2) /HPF Urine Bacteria None Seen (None Seen) Hyaline Casts 0-2 (0-2) /LPF Radiology Impression Discussion of test interpretation with radiology: I have reviewed the radiologist's reading. Radiologist Impression: EXAMINATION: CT ABDOMEN AND PELVIS WITHOUT CONTRAST? CLINICAL INFORMATION: Abdominal pain.? COMPARISON: Abdominal ultrasound dated 10/19/[address] scan of the abdomen and pelvis dated 11/05/2020. TECHNIQUE: Multidetector volumetric imaging was performed from the superior aspect of the liver through the pubic symphysis. Sagittal and coronal reformatted images were obtained on the technologist's workstation. Lack of intravenous and oral contrast limits visceral evaluation. Mild motion artifact also limits evaluation. This CT examination was performed using dose optimization techniques as appropriate, variously including the following: *Automated exposure control *Adjustment of mA and/or kV according to patient size (this includes techniques or standardized protocols for targeted exams where dose is matched to indication/reason for exam; i.e. extremities or head) *Use of iterative reconstruction technique DLP: 406 mGy-cm FINDINGS: LUNG BASES: Trace left pleural effusion. No right pleural or pericardial effusions are seen.? LIVER, GALLBLADDER, AND BILIARY TREE: Unremarkable. PANCREAS: Unremarkable.? SPLEEN: Unremarkable.? ADRENAL GLANDS: Unremarkable.? KIDNEYS AND URETERS: The left kidney shows a noncalcified fluid attenuation focus in the lower pole measuring 1.2 cm (image 29, series 3). No nephrolithiasis or hydroureteronephrosis bilaterally. BLADDER: Mild to moderately distended without focal mural or intraluminal abnormality.? GASTROINTESTINAL TRACT: The stomach, small bowel and appendix are unremarkable. The colon and rectum are unremarkable. ABDOMINAL WALL: No significant hernia is appreciated.? LYMPH NODES: No lymphadenopathy. VASCULAR: Unremarkable. PELVIC VISCERA: Mild prostamegaly.? OSSEOUS STRUCTURES: Unremarkable.? CT/CT abdomen pelvis wo IV con IMPRESSION: 1.? No acute intra-abdominal/pelvic abnormality to explain the patient's pain. 2.? Trace left pleural effusion. 3.? Small left lower pole renal cyst demonstrates benign features. 4.? Mild prostamegaly. ? ? Dictated By: Stanton Samuels MD External Record Review External record reviewed: Inpatient record, Office record, Outpatient record, Prior outpatient labs, Prior outpatient radiology, Primary care record and Outside ED record Review of outpatient GI records, patient has had these symptoms chronically. Last saw GI on August 10, 2022. Medications Administered Discontinued Medications Generic Name Dose Route Start Last Admin Trade Name Freq PRN Reason Stop Dose Admin Acetaminophen 975 mg 10/27/22 11:52 10/27/22 12:45 Acetaminophen 325 Mg Tablet PO 10/27/22 11:53 975 mg ONCE ONE Administration Sodium Chloride 1,000 mls @ 999 mls/hr 10/27/22 11:52 10/27/22 13:57 Ns IV 10/27/22 12:52 Infused .Q1H1M ONE Infusion Sodium Zirconium Cyclosilicate 10 gm 10/27/22 15:20 10/27/22 15:31 Sodium Zirconium Cyclosilicate 10 Gm Powd.Pack PO 10/27/22 15:21 10 gm ONCE ONE Administration Discharge Plan Discharge Clinical Impression: Abdominal pain, Hyperkalemia Patient Disposition: Home, Self-Care Instructions: Abdominal Pain (ED) Additional Instructions: Please follow-up with your primary care physician and GI specialist. Your CT scan did not show any reason for your abdominal pain today. Your lab work was reassuring. Take Tylenol or Motrin for your pain. Your potassium levels were elevated, we gave you medication to lower this. Please have your potassium levels checked within the next 3-5 days. If any new or worsening symptoms occur including but not limited to fevers, chills, worsening abdominal pain, please return for re-evaluation. Por favor, jonathan un seguimiento con cunha m?dico de atenci?n primaria y especialista en gastroenterolog?a. Cunha tomograf?a computarizada no mostr? ninguna tonia?n para cunha dolor abdominal hoy. Cunha trabajo de laboratorio fue tranquilizador. Tus niveles de potasio estaban elevados, te dimos medicamentos para bajarlos. Por favor, controle ez niveles de potasio dentro de los pr?ximos 3 a 5 d?as. Si se presentan s?ntomas nuevos o que empeoran, incluidos, entre otros, fiebre, escalofr?os, empeoramiento del dolor abdominal, regrese para jessica nueva evaluaci?n. Prescriptions: No Action Trulicity 1.5 mg/0.5 mL pen injector 1.5 mg subcut QWEEK Qty: 2 6RF (DME) blood pressure monitor Kit See Rx Instructions .Route Qty: 1 0RF Rx Instructions: As directed metformin 1,000 mg tablet 1,000 mg PO BID Qty: 60 0RF insulin glargine U-300 conc 300 unit/mL (1.5 mL) insulin pen 7 unit subcut DAILY 54 Days Qty: 1.5 0RF dicyclomine 20 mg tablet 20 mg PO QID Qty: 120 0RF Hold Instructions: Doctor's Order famotidine 40 mg tablet See Rx Instructions .ROUTE .COMPLEX Qty: 30 0RF Dose Instruction: TAKE ONE TABLET AT BEDTIME Rx Instructions: TAKE ONE TABLET AT BEDTIME ipratropium-albuterol 20-100 mcg/actuation mist 1 puff inhalation QID cholecalciferol (vitamin D3) 25 mcg (1,000 unit) tablet 25 mcg PO QAM oxybutynin chloride 5 mg tablet 5 mg PO BID mirtazapine 45 mg tablet 45 mg PO BEDTIME aspirin 81 mg tablet,delayed release (DR/EC) 81 mg PO DAILY carvedilol 12.5 mg tablet 12.5 mg PO DAILY atorvastatin 80 mg tablet 80 mg PO DAILY (DME) pen needle, diabetic 32 gauge x 5/32 needle See Rx Instructions .ROUTE .MEDSUPPLY Qty: 50 Rx Instructions: As directed (DME) lancets 33 gauge misc See Rx Instructions Not Applicable .MEDSUPPLY Qty: 100 Rx Instructions: As directed gabapentin 800 mg tablet 800 mg PO BID (DME) blood-glucose meter [FreeStyle Lite Meter] Kit See Rx Instructions .ROUTE .MEDSUPPLY Qty: 1 0RF Rx Instructions: As directed 3x/day Incruse Ellipta 62.5 mcg/actuation blister with device 1 inh inhalation DAILY ammonium lactate 12 % lotion topical sertraline 50 mg tablet 50 mg PO DAILY Viberzi 75 mg tablet 75 mg PO BID Qty: 60 3RF Rx Instructions: must administer with a meal/food esomeprazole magnesium 20 mg capsule,delayed release(DR/EC) 20 mg PO QAM (DME) FreeStyle Lite Strips Strip See Rx Instructions Not Applicable .MEDSUPPLY Qty: 10 Rx Instructions: As directed ibuprofen 800 mg tablet 800 mg PO BID Interventions: ED Discharge Assessment Last Done: 10/27/22 15:37 Discharge Date/Time: 10/27/22 15:40
[2022-10-27 12:18] VITALS: BP 133/85; PULSE 63; RESP 14; O2SAT 97
[2022-10-27] MEDS: 0.9 % Sodium Chloride 1,000 ML 999 ML IV (12:44)
[2022-10-27] MEDS: Acetaminophen 325 MG TABLET 975 MG PO (12:45)
[2022-10-27 15:21] VITALS: BP 154/87; PULSE 60; RESP 14; O2SAT 96
[2022-10-27] MEDS: Sodium Zirconium Cyclosilicate 10 GM POWD.PACK PO (15:31)
[2022-10-27 15:39] LABS: Appearance Urine Clear; Color Urine Yellow; Glucose Urine UA >=1000 mg/dL (Negative); Leukocyte Esterase Urine Negative (Negative); Nitrite Urine Negative (Negative); PH 7.5 (5.0-9.0); Specific Gravity - Urine 1.025 (1.005-1.025); UMIC TRIGGER UACC YES; Urine Blood Negative (Negative); Urine Ketones Negative (Negative); Urine Protein Negative (Neg-Trace)
[2022-10-27 15:50] LABS: Bacteria Urine None Seen (None Seen); Hyaline Casts Urine 0-2 /LPF (0-2); RBC Urine 0-2 /HPF (0-2); Squamous Epithelial Cell Urine 0-2 /HPF (0-2); WBC Urine 0-5 /HPF (0-5)
== END 2022-10-27 15:40 | disposition home or self-care (01) ==
PROVIDERS: Physician Assistant Medical; Emergency Provider Emergency Medicine; PCP Student in an Organized Health Care Education/Training Program
DX: R10.11 Right upper quadrant pain (principal); R10.2 Pelvic and perineal pain; E23.2 Diabetes insipidus; E11.9 Type 2 diabetes mellitus without complications; R00.1 Bradycardia, unspecified; Z79.899 Other long term (current) drug therapy; Z79.4 Long term (current) use of insulin
CPT/HCPCS: 36415; 74176; 80053; 81001; 83690; 85025; 93005; 96360; 99284; 99285

== ENCOUNTER 2022-11-09 12:47 | Outpatient (AMB) | payer OTHER, SELFPAY ==
[2022-11-09 12:59] VITALS: BP 142/86; PULSE 65; BMI 21.7
--- NOTE | 2022-11-09 12:59 | MHC.OFFVIS ---
Intake Vital Signs 11/09/22 12:59 Height 5 ft 9 in Weight 146 lb 13.246 oz BMI 21.7 BP 142/86 H Blood Pressure Location Lt brachial Position Sitting Pulse 65 Pulse Source Pulse Oximeter Intake Visit Reasons: 1 YR F/UP PER DC Intake Note: 1 year follow up with EKG. Supply Chain Engineer Required: Yes Supply Chain Engineer Language: Independent Trader Name: Krista [id number] [employer] Ipad Accompanied by: Self / Same As Patient Allergies naproxen [From NAPROSYN] Allergy (Mild, Verified 11/09/22 13:02) HIVES Medication List - Last Reconciled 11/09/22 by Dandy Rodriguez MD ammonium lactate 12% topical aspirin 81 mg PO DAILY atorvastatin 80 mg PO DAILY blood pressure monitor As directed blood sugar diagnostic (FreeStyle Lite Strips) As directed blood-glucose meter (FreeStyle Lite Meter kit) As directed 3x/day carvedilol 12.5 mg PO DAILY cholecalciferol (vitamin D3) 25 mcg PO QAM dicyclomine 20 mg PO QID dulaglutide (Trulicity) mg subcut eluxadoline (Viberzi) 75 mg PO BID esomeprazole magnesium 20 mg PO QAM famotidine TAKE ONE TABLET AT BEDTIME fluticasone furoate-vilanterol 100-25 mcg/dose (Breo Ellipta) 1 ea inhalation DAILY gabapentin 800 mg PO BID ibuprofen 800 mg PO BID insulin glargine U-300 conc 7 units (0.0233 mL) subcut DAILY 54 days ipratropium-albuterol 20-100 mcg/actuation 1 puff inhalation QID lancets As directed metformin 1,000 mg PO BID mirtazapine 45 mg PO BEDTIME oxybutynin chloride 5 mg PO BID pen needle, diabetic As directed sertraline 100 mg PO DAILY umeclidinium 62.5 mcg/actuation (Incruse Ellipta) 1 inh inhalation DAILY HPI HPI Comments History of Present Illness Details 55-year-old male prior medical history of COPD, depression, hyperlipidemia, diabetes type 2, history of Takatsobo cardiomyopathy, resolved, who was admitted initially in August 2017 with complaints of chest pain, positive biomarkers, underwent cardiac catheterization August 2017 showing nonobstructive coronary artery disease, left main normal, LAD less than 30, circumflex less than 30, RCA less than 30, with TTE showing reverse Takotsubo pattern, repeat TTE 02/09/2018 showed LVEF 55 to 60%, no regional wall motion abnormalities, aortic root dilatation to 4.5 cm. He was previously being seen at the [facility] by cardiology fellows. He is here to establish cardiovascular care. He is saying he is has been short of breath. Denies any orthopnea or PND. Is saying when he walks he gets out of breath easily. No chest discomfort. Blood pressure control is good. He is a former smoker. He was a heavy drinker in the past but he has stop drinking. He was seen before shoulder surgery. He had stress test which was ok. Echo showed EF 40-45%. He is now status post surgery. He is doing well. No chest pain or shortness of breath. We discussed about his mildly low ejection fraction. He had cardiac catheterization in 2008 did not show any coronary issues. He is on carvedilol only and blood pressure does not have any known to add any other medications. We discussed and repeated the echocardiogram which showed normal biventricular function. His global longitudinal strain values were low but ejection fraction was back to normal. He is denying any active symptoms of follow-up. In particular no chest pain or shortness of breath. 11/09/22: He returns for follow-up. He is saying he has been experiencing some abdominal pain and is undergoing workup for that. He is saying his blood pressure has been controlled. In office his blood pressure is 142/86. He is currently taking carvedilol 12.5 mg twice a day. His heart rate is in 60s. He is denying any chest discomfort or significant shortness of breath. He has known history of asthma. [facility] Medical History Alcohol abuse BPH (benign prostatic hyperplasia) COPD (chronic obstructive pulmonary disease) Depression Diabetes type 2, uncontrolled Essential hypertension Hyperlipidemia LDL goal <70 Long-term insulin use in type 2 diabetes Myocardial infarction Peripheral neuropathy Seizures Sleep apnea Thrombocytopenia Tobacco abuse Type 2 diabetes mellitus with diabetic polyneuropathy Surgical History H/O colonoscopy History of arthroscopic surgery of shoulder History of esophagogastroduodenoscopy (EGD) Hx of hernia repair Hx of knee surgery Hx of pneumonectomy Hx of shoulder surgery Family History Father Cancer Diabetes Mother CVD (cardiovascular disease) Social History Household Members: Spouse Alcohol intake: never Patient Tobacco Use Status: Never used Tobacco Current occupational status: unemployed Current occupation: Right Handed Review of Systems Const Denies weakness ENT Denies dizziness Card Denies chest pain, Denies chest pain with activity, Denies syncope, Denies rapid heart rate, Denies pedal edema, Denies edema, Denies leg edema, Denies lightheadedness, Denies palpitations, Denies dyspnea, Denies dyspnea on exertion and Denies orthopnea Resp Denies cough, Denies dyspnea and Denies dyspnea on exertion GI Denies hematochezia and Denies change in stool character Musc Denies abnormal gait, Denies muscle cramps, Denies muscle weakness, Denies numbness, Denies radiating pain into limb and Denies tingling Neuro Denies abnormal gait, Denies dizziness, Denies syncope, Denies numbness, Denies tingling and Denies weakness Endo Denies palpitations Physical Exam Vital Signs: Last Vital Signs Pulse 65 11/09/22 12:59 BP 142/86 H 11/09/22 12:59 BMI result Body Mass Index 21.7 GENERAL APPEARANCE: in no acute distress, pleasant. NECK: no carotid bruit, no jugular venous distention. SKIN: no suspicious lesions, warm and dry. HEART: no murmurs, regular rate and rhythm. LUNGS: clear to auscultation bilaterally. ABDOMEN: soft, nontender. EXTREMITIES: no edema. PERIPHERAL PULSES: equal. NEUROLOGIC: No gross deficits, AAO X 3 Assessment & Plan Assessment & Plan (1) Dilated aortic root: Code(s): I77.810 - Thoracic aortic ectasia (2) Essential hypertension: Code(s): I10 - Essential (primary) hypertension Plan Pleasant 57 year gentleman is here for follow-up. He has background history of hypertension, mild to moderate aortic root dilatation at 4.5 cm and history of takotsubo cardiomyopathy. He had mildly reduced ejection fraction previously but repeat echocardiography in June 2022 has shown improvement in ejection fraction. His blood pressure is elevated. I am adding amlodipine 2.5 mg once a day. He will follow-up with us in 4 months. At that time will repeat echocardiography to reassess aortic root size. Thank you for allowing me to participate in the care of your patient. Please feel free to contact me if you have any questions. Medications: New amlodipine 2.5 mg PO DAILY 60 tabs 3RF I10 - Essential (primary) hypertension Coding Level of Care Code Est Pt Level 4 (81591) Diagnoses Dilated aortic root I77.810 Essential hypertension I10
== END 2022-11-09 13:14 | disposition home or self-care (01) ==
PROVIDERS: Visit Provider Internal Medicine Cardiovascular Disease
DX: I77.810 Thoracic aortic ectasia (principal); I10 Essential (primary) hypertension
CPT/HCPCS: 99214

== ENCOUNTER → 2022-11-09 12:47 | Outpatient (BNVA) | payer OTHER, SELFPAY | PROVIDERS: Visit Provider Internal Medicine Cardiovascular Disease | DX: R07.9 Chest pain, unspecified (principal); I77.810 Thoracic aortic ectasia; I10 Essential (primary) hypertension; Z98.890 Other specified postprocedural states | CPT/HCPCS: 99212 ==

== ENCOUNTER 2022-11-11 11:10 | Outpatient (AMB) | payer OTHER, SELFPAY ==
--- NOTE | 2022-11-11 11:11 | MHC.OFFVIS ---
Intake Vital Signs 11/11/22 11:13 Height 5 ft 9 in Weight 145 lb 8.081 oz BMI 21.5 BP 146/94 H Blood Pressure Location Lt brachial Position Sitting Pulse 74 Intake Visit Reasons: Follow up ER Intake Note: Aravind presents in the office as a follow up to the ER. CC: States that he is having pains in the right side, they cannot seem to find out what is wrong with him. Dr. Carmona recommend they do a colonoscopy again with an EGD. Supervisory Clerk Required: Yes Supervisory Clerk Name: Sirena - Allergies naproxen [From NAPROSYN] Allergy (Mild, Verified 11/11/22 14:58) HIVES HPI Follow up ER HPI Details Assessment & Plan (1) Irritable bowel syndrome with diarrhea: ?Code(s): K58.0 - Irritable bowel syndrome with diarrhea ?Plan: [facility]? #[facility]rian Live I review his medications and he is taking dicyclomine 4 times a day and they changed his pantoprazole to the generic Nexium.? I have wanted stay away from this because Nexium and omeprazole both have a greater likelihood of diarrhea as a class side effect. Currently his diarrhea is improving without any intervention but it is not resolved. However, even when he does not as severe diarrhea it sounds like he is having multiple daily bowel movements that her looser.? I think we need better diarrhea control and since he is failed Carafate, cholestyramine, fiber, and [id number] Imodium I am going to try to progress him to Viberzi 75 mg twice a day.? I explained this to him and that once he starts the Viberzi he should stop the dicyclomine and all of this is written out for him in Salvadorean. Return office visit in 4 weeks to evaluate his response. (2) GERD (gastroesophageal reflux disease): ?Code(s): K21.9 - Gastro-esophageal reflux disease without esophagitis ? ? ? Medications: New eluxadoline (Viber zi) ?? must admini ster with a meal/f ood 75 mg? PO BID 60 t abs 3RF K58.0 - Irritable bowel syndrome wit h diarrhea ? On Hold dicyclomine ?? Hol d Comment:? Doctor 's Order 20 mg PO QID 120 t abs 0RF K58.0 - Irritable bowel syndrome wit h diarrhea ?Patient Instructions: Aravind Rosa Estoy comenzando con un nuevo medicamento llamado eluxadoline (Viberzi) que ha? dos veces al d?a. Deje de ha la diciclomina cuando empiece a ha sylvia medicamento. Si esto no est? controlando lo suficiente la deposici?n, la aumentaremos. Si sufre estre?imiento, reduzca la dosis a jessica vez al d?a o s?ltese unos d?as hasta que defeque. Quiero verte en 4 semanas para romulo c?mo te va. REVIEW OF ER NOTES 10/27/2022 Reevaluation(s) Reevaluation #1: Abdominal CT scan shows no acute intra-abdominal or pelvic abnormality to explain patient's pain, and small left lower pole renal cyst that appears benign.? Mild prostatomegaly.? Labs unremarkable, no leukocytosis.? Patient is mildly hyperkalemic at 5.4. Time: 14:19 Reevaluation #2: Patient reports that he is feeling better after receiving fluids and Zofran.? CT returns without any intra-abdominal pelvic abnormality.? Discussed results with patient and were upset as we were unable to find a reason for his pain.? Patient has had an unremarkable ultrasound out patient has been closely following up with GI specialist.? Given no leukocytosis and chemistry abnormality of potassium 5.4, will medicate with Lokelma p.o. prior to discharge.? Patient advised to follow-up with primary care physician and GI specialist in 3-5 days to ensure that his potassium levels have regulated.? Urinalysis is still pending, however patient is stable for discharge.? Will call with any abnormal results from urinalysis.? Patient stable for discharge. Time: 15:33 Medical Decision Making Medical Decision Making MDM Narrative: 57-year-old male presenting to the emergency department with ongoing right upper quadrant and right mid quadrant pain.? Patient had ultrasound performed on Monday which was normal.? Patient endorses nausea and decreased appetite secondary to the pain worsening.? On arrival, patient mildly hypertensive at 164/97, patient is afebrile.? Patient has tenderness palpation in the right upper quadrant.? Patient had recent outpatient ultrasound which was unremarkable.? I do not think it is necessary to repeat as this was done within the last week and patient has had no changes in his symptoms. TODAY'S VISIT [facility] # translates per request They tell me that he received the Viberzi and took it but it did not help the pain, also he is now having BM's 2-3 times a day with stools varying from soft to hard. The pain is random and is not r/t eating or moving his bowels. The pain is always there in the same spot and is described as squeezing. He is being told by various providers taht he needs an EGD/colonoscopy - but he had a scope in 2019 and his pain is not well correlated with any GI systems. We do an exam and his pain is provoked with all aspects of his LS movement and he is very limited in ROM in all aspects. I will get XR of LS and thoracic spine and some inflammatory markers. I explain that I COULD not EGD/colonoscopy, but this would only make $$ for us and not solve the problem. ROV 3 weeks. [facility] Medical History (Updated 11/11/22 @ 15:15 by Jayson Arreaga MD) Alcohol abuse BPH (benign prostatic hyperplasia) COPD (chronic obstructive pulmonary disease) Depression Diabetes type 2, uncontrolled Essential hypertension Hyperlipidemia LDL goal <70 Long-term insulin use in type 2 diabetes Myocardial infarction Peripheral neuropathy Seizures Sleep apnea Thrombocytopenia Tobacco abuse Type 2 diabetes mellitus with diabetic polyneuropathy Surgical History (Updated 11/11/22 @ 15:13 by Jayson Arreaga MD) H/O colonoscopy History of arthroscopic surgery of shoulder History of esophagogastroduodenoscopy (EGD) Hx of hernia repair Hx of knee surgery Hx of pneumonectomy Hx of shoulder surgery Family History Father Cancer Diabetes Mother CVD (cardiovascular disease) Social History (Updated 11/11/22 @ 15:01 by Sherry Villa CMA) Household Members: Spouse Alcohol intake: never Patient Tobacco Use Status: Former Tobacco user Tobacco use type: Cigarette Years Smoked: 40 Current occupational status: unemployed Current occupation: Right Handed Review of Systems Const Denies fatigue, Denies fever(s), Denies night sweats, Denies poor appetite and Denies weight loss Eyes Details: glasses Reports requires corrective lenses ENT Reports Normal hearing present, Denies dental pain, Denies dysphagia, Denies hearing loss, Denies mouth pain, Denies odynophagia, Denies throat swelling, Denies tongue swelling and Reports other (Dentition adequate) Card Reports no additional complaints Resp Reports no additional complaints GI Reports abdominal pain, Denies melena, Denies bloating, Denies hematochezia, Denies constipation, Denies GI cramping, Denies dysphagia, Denies excessive flatus, Denies early satiety, Reports heartburn, Reports diarrhea, Denies nausea, Denies odynophagia, Denies vomiting and Denies hematemesis Musc Reports back pain, Reports myalgias and Reports arthralgias Skin/Breast Denies pruritus, Denies lesions, Denies rash and Denies jaundice Neuro Reports Normal hearing present and Denies Abnormal speech present Endo Denies fatigue Aller/Immun Denies throat swelling and Denies tongue swelling Physical Exam Vital Signs: Last Vital Signs Pulse 74 11/11/22 11:13 BP 146/94 H 11/11/22 11:13 BMI result Body Mass Index 21.5 Const General: cooperative, no acute distress, well developed and well groomed Nutritional Appearance: average body habitus and well nourished Orientation/consciousness: oriented to person, oriented to place and oriented to time Limitations: language barrier HEENT Head: Yes normocephalic and Yes atraumatic Eyes General: appearance normal, both eyes and all related structures Pupils: Equal, round and reactive pupils present Neck Neck: Yes normal visual inspection and Yes no lymphadenopathy Thyroid: Thyroid normal Resp Effort & Inspection: normal respiratory effort and able to speak in complete sentences Auscultation: clear to auscultation bilaterally Cardio Rate: regular rate Rhythm: regular rhythm Heart sounds: Normal, physiologic split S2 sound present Peripheral pulses: radial pulses present and posterior tibial pulses present GI Inspection: No distended and No Abdominal panniculus present Palpation (GI): Soft to palpation, nontender, no guarding, not rigid and No hepatosplenomegaly present Percussion: Yes normal to percussion Auscultation: normal bowel sounds Rectal Exam - Male: Yes deferred Back/Spine/Pelvis Thoracic/Lumbar Spine: thoraco-lumbar ROM limited with forward flexion and with lateral flexion to the right, thoraco-lumbar spasm and straight leg raise positive Skin General skin exam: no rashes or lesions noted, turgor normal, skin not dry, no jaundice, No spider nevi and no striae Rashes: no rashes Nails: normal Neuro General: oriented to person, oriented to place and oriented to time Cranial nerves: Yes Equal, round and reactive pupils present and Yes Normal hearing present Speech: No Abnormal speech present Extrem General: Yes normal to inspection, No clubbing, No cyanosis and No edema Psych Appearance: grossly normal and well kempt Mental Status: mental status grossly normal Speech and movement: Normal speech and movement present Affect: normal affect Attitude: cooperative Thought process: Normal thought process present and not confabulating Thought content: Normal thought content present Insight: Limited insight present (Psych) Judgement: Limited judgement present (Psych) Results Reviewed Results Reviewed: .REVIEW OF ER NOTES 10/27/2022 Reevaluation(s) Reevaluation #1: Abdominal CT scan shows no acute intra-abdominal or pelvic abnormality to explain patient's pain, and small left lower pole renal cyst that appears benign.? Mild prostatomegaly.? Labs unremarkable, no leukocytosis.? Patient is mildly hyperkalemic at 5.4. Time: 14:19 Reevaluation #2: Patient reports that he is feeling better after receiving fluids and Zofran.? CT returns without any intra-abdominal pelvic abnormality.? Discussed results with patient and were upset as we were unable to find a reason for his pain.? Patient has had an unremarkable ultrasound out patient has been closely following up with GI specialist.? Given no leukocytosis and chemistry abnormality of potassium 5.4, will medicate with Lokelma p.o. prior to discharge.? Patient advised to follow-up with primary care physician and GI specialist in 3-5 days to ensure that his potassium levels have regulated.? Urinalysis is still pending, however patient is stable for discharge.? Will call with any abnormal results from urinalysis.? Patient stable for discharge. Time: 15:33 Medical Decision Making Medical Decision Making MDM Narrative: 57-year-old male presenting to the emergency department with ongoing right upper quadrant and right mid quadrant pain.? Patient had ultrasound performed on Monday which was normal.? Patient endorses nausea and decreased appetite secondary to the pain worsening.? On arrival, patient mildly hypertensive at 164/97, patient is afebrile.? Patient has tenderness palpation in the right upper quadrant.? Patient had recent outpatient ultrasound which was unremarkable.? I do not think it is necessary to repeat as this was done within the last week and patient has had no changes in his symptoms. Assessment & Plan Assessment & Plan (1) Irritable bowel syndrome with diarrhea: Code(s): K58.0 - Irritable bowel syndrome with diarrhea Plan: [facility] # translates per request They tell me that he received the Viberzi and took it but it did not help the pain, also he is now having BM's 2-3 times a day with stools varying from soft to hard. The pain is random and is not r/t eating or moving his bowels. The pain is always there in the same spot and is described as squeezing. He is being told by various providers taht he needs an EGD/colonoscopy - but he had a scope in 2019 and his pain is not well correlated with any GI systems. We do an exam and his pain is provoked with all aspects of his LS movement and he is very limited in ROM in all aspects. I will get XR of LS and thoracic spine and some inflammatory markers. I explain that I COULD not EGD/colonoscopy, but this would only make $$ for us and not solve the problem. ROV 3 weeks. (2) GERD (gastroesophageal reflux disease): Code(s): K21.9 - Gastro-esophageal reflux disease without esophagitis (3) Back pain: Code(s): M54.9 - Dorsalgia, unspecified Orders: Orders XR thoracic spine 2V 11/11/22 M54.9 - Dorsalgia, unspecified XR lumbar spine 2-3V 11/11/22 M54.9 - Dorsalgia, unspecified C Reactive Protein 11/11/22 M54.9 - Dorsalgia, unspecified Erythrocyte Sedimentation Rate 07/14/23 M54.9 - Dorsalgia, unspecified Rheumatoid Factor 11/11/22 M54.9 - Dorsalgia, unspecified VLAD Reflex Titer and Pattern 11/11/22 M54.9 - Dorsalgia, unspecified Medications: Discontinued eluxadoline must administer with a meal/food Discontinued Reason: Doctor's Order 75 mg PO BID 60 tabs 3RF K58.0 - Irritable bowel syndrome with diarrhea Coding Level of Care Code Est Pt Level 4 (03594) Diagnoses Irritable bowel syndrome with diarrhea K58.0 GERD (gastroesophageal reflux disease) K21.9 Back pain M54.9
[2022-11-11 11:13] VITALS: BP 146/94; PULSE 74; BMI 21.5
== END 2022-11-11 11:53 | disposition home or self-care (01) ==
PROVIDERS: PCP Student in an Organized Health Care Education/Training Program; Visit Provider Nurse Practitioner
DX: K58.0 Irritable bowel syndrome with diarrhea (principal); K21.9 Gastro-esophageal reflux disease without esophagitis; M54.9 Dorsalgia, unspecified
CPT/HCPCS: 99214

== ENCOUNTER 2022-11-11 11:10 | Outpatient (REF) | payer OTHER, SELFPAY ==
--- NOTE | ~2022-11-11 | XR_ITS ---
EXAMINATION: XR LUMBOSACRAL SPINE CLINICAL INFORMATION: Pain COMPARISON: 06/27/2016 lumbar spine radiographs. TECHNIQUE: Three views of the lumbosacral spine. FINDINGS: Alignment is normal. Vertebral body heights are normal. No fracture. Intervertebral disc heights are maintained. Bone mineralization is normal. SI joints are unremarkable. XR/XR lumbar spine 2-3V IMPRESSION: 1. No acute fracture or malalignment. 2. Lumbar spine appears relatively well-preserved without significant degenerative disc disease.
--- NOTE | ~2022-11-11 | XR_ITS ---
EXAMINATION: XR THORACIC SPINE CLINICAL INFORMATION: Pain COMPARISON: None available. TECHNIQUE: 4 radiographs of the thoracic spine were performed. FINDINGS: The vertebral alignment is normal. No intrinsic bony abnormality. The disc heights are well maintained. No fracture. The surrounding prevertebral soft tissues are unremarkable. XR/XR thoracic spine 2V IMPRESSION: No acute osseous abnormality.
[2022-11-11 15:06] LABS: C Reactive Protein < 0.10 mg/dL (< or = 0.50)
[2022-11-11 15:14] LABS: Erythrocyte Sedimentation Rate 2 MM/HR (0-15)
[2022-11-11 15:41] LABS: Rheumatoid Factor < 13.0 IU/mL (<15.0)
[2022-11-15 15:43] LABS: Anti Nuclear Antibody Screen NEGATIVE (NEGATIVE)
== END 2022-11-11 11:11 | disposition home or self-care (01) ==
LOC: HO.LAB 11:10
PROVIDERS: PCP Student in an Organized Health Care Education/Training Program; Visit Provider Nurse Practitioner
DX: J44.9 Chronic obstructive pulmonary disease, unspecified (principal); R91.8 Other nonspecific abnormal finding of lung field; Z93.8 Other artificial opening status; K58.0 Irritable bowel syndrome with diarrhea; K21.9 Gastro-esophageal reflux disease without esophagitis; M54.9 Dorsalgia, unspecified
CPT/HCPCS: 36415; 72070; 72100; 85652; 86038; 86140; 86431; 99202; 99212

== ENCOUNTER 2022-11-11 14:30 | Outpatient (AMB) | payer OTHER, SELFPAY ==
--- NOTE | 2022-11-11 14:51 | MHC.OFFVIS ---
Intake Vital Signs 11/11/22 14:52 Height 5 ft 9 in Weight 147 lb 11.355 oz BMI 21.8 BP 124/62 Blood Pressure Location Lt brachial Position Sitting Pulse 80 Pulse Source Pulse Oximeter Pulse Oximetry (%) 98 Oxygen Delivery Method Room Air Intake Visit Reasons: COPD Intake Note: Aravind is a new patient who presents today with his . He reports having surgery on his lung so his PCP suggested coming in. They are not sure exactly what surgery he got, but happened in 1997. Pt complains of chest pain, problem breathing, but denies coughing and wheezing. Pt smoked cigarettes for about 40 years but quit in 2014. Allergies naproxen [From NAPROSYN] Allergy (Mild, Verified 11/11/22 14:58) HIVES HPI COPD HPI Details 57-year-old gentleman, former 60 pack-year smoker, quit 2018, with underlying history of left-sided chest tube for unclear indication approximately 10 years prior with reversal, now with some dyspnea on exertion referred for evaluation of his pulmonary concerns. Patient states that he has been using Breo with suboptimal control of his symptoms. He denies having recent pulmonary function testing or lung cancer screening. He denies family history of lung disease. 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 He denies recent acute exacerbations. [facility] Medical History (Updated 11/11/22 @ 15:15 by Jayson Arreaga MD) Alcohol abuse BPH (benign prostatic hyperplasia) COPD (chronic obstructive pulmonary disease) Depression Diabetes type 2, uncontrolled Essential hypertension Hyperlipidemia LDL goal <70 Long-term insulin use in type 2 diabetes Myocardial infarction Peripheral neuropathy Seizures Sleep apnea Thrombocytopenia Tobacco abuse Type 2 diabetes mellitus with diabetic polyneuropathy Surgical History (Updated 11/11/22 @ 15:13 by Jayson Arreaga MD) H/O colonoscopy History of arthroscopic surgery of shoulder History of esophagogastroduodenoscopy (EGD) Hx of hernia repair Hx of knee surgery Hx of pneumonectomy Hx of shoulder surgery Family History Father Cancer Diabetes Mother CVD (cardiovascular disease) Social History (Updated 11/11/22 @ 15:01 by Sherry Villa CMA) Household Members: Spouse Alcohol intake: never Patient Tobacco Use Status: Former Tobacco user Tobacco use type: Cigarette Years Smoked: 40 Current occupational status: unemployed Current occupation: Right Handed Review of Systems Const Denies daytime sleepiness, Denies excessive sweating, Denies fatigue, Denies fever(s), Denies lethargy, Denies malaise, Denies night sweats, Denies snoring and Denies weight loss Eyes Denies blurry vision and Denies itchy eyes ENT Denies nasal congestion, Denies post nasal drip, Denies sinus pain, Denies sinus pressure and Denies other ( Thrush) Card Denies chest pain, Denies pedal edema, Denies dyspnea, Denies orthopnea and Denies paroxysmal nocturnal dyspnea Resp Denies cough, Denies hemoptysis, Denies excessive phlegm production, Denies dyspnea, Denies snoring and Denies wheezing GI Denies abdominal pain and Denies heartburn Musc Denies myalgias, Denies arthralgias and Denies joint swelling Skin/Breast Denies rash Neuro Denies memory loss and Denies seizure-like activity Psych Denies abnormal sleep pattern, Denies anxiety and Denies memory loss Endo Denies excessive sweating, Denies fatigue and Denies heat intolerance Toño/Lymph Denies easy bruising Aller/Immun Denies itchy eyes, Denies seasonal rhinorrhea and Denies wheezing Physical Exam Vital Signs: Last Vital Signs Pulse 80 11/11/22 14:52 BP 124/62 11/11/22 14:52 Pulse Ox 98 11/11/22 14:52 Oxygen Delivery Method Room Air 11/11/22 14:52 BMI result Body Mass Index 21.8 Const General: no acute distress and alert Nutritional Appearance: not obese Orientation/consciousness: Other orientation findings ( oriented) HEENT Head: Yes atraumatic Eyes General: appearance normal, both eyes and all related structures Sclerae: sclerae normal EOM: EOMs intact bilaterally Neck Neck: Yes supple Lymphatic: no lymphadenopathy noted Resp Effort & Inspection: normal respiratory effort and no use of accessory muscles Auscultation: clear to auscultation bilaterally Cardio Rate: regular rate Rhythm: regular rhythm Heart sounds: no gallops, no murmurs and no rubs Skin General skin exam: other ( warm) Extrem General: No clubbing, No cyanosis and No edema Assessment & Plan Assessment & Plan (1) COPD (chronic obstructive pulmonary disease): Code(s): J44.9 - Chronic obstructive pulmonary disease, unspecified Plan: Likely underlying COPD of unclear severity. Will switch Breo to Anoro and obtain full PFT. Continue albuterol MDI. (2) Status post chest tube placement: Code(s): Z93.8 - Other artificial opening status Plan: For unclear indication previously, also with a history of significant industrial dust exposure. Will obtain CT chest for further evaluation. (3) Pulmonary nodules: Code(s): R91.8 - Other nonspecific abnormal finding of lung field Plan: Will obtain CT chest for further evaluation. Orders: Orders CT chest wo IV con Today R91.8 - Other nonspecific abnormal finding of lung field, Z93.8 - Other artificial opening status PFT pulmonary function test Today R06.00 - Dyspnea, unspecified Medications: New Anoro Ellipta 62.5-25 mcg/actuation (umeclidinium-vilanterol) 1 inh inhalation DAILY 30 days 1 ea 6RF NS Coding Level of Care Code New Pt Level 4 (60561) Diagnoses COPD (chronic obstructive pulmonary disease) J44.9 Status post chest tube placement Z93.8 Pulmonary nodules R91.8
[2022-11-11 14:52] VITALS: BP 124/62; PULSE 80; O2SAT 98; BMI 21.8
== END 2022-11-11 15:13 | disposition home or self-care (01) ==
PROVIDERS: PCP Student in an Organized Health Care Education/Training Program; Visit Provider Internal Medicine Pulmonary Disease
DX: J44.9 Chronic obstructive pulmonary disease, unspecified (principal); Z93.8 Other artificial opening status; R91.8 Other nonspecific abnormal finding of lung field
CPT/HCPCS: 99204

== ENCOUNTER 2022-11-23 12:47 | Outpatient (REF) | payer OTHER, SELFPAY ==
--- NOTE | 2022-11-23 14:19 | PFT_ITS ---
Forced vital capacity is 80%, FEV1 61%, FEV1/FVC ratio is 58. BBS05-09 28% and MVV 58%. Post bronchodilator therapy, no significant improvement is noted. Total lung capacity 87%. Residual volume 101%. Diffusion capacity 60%. CONCLUSION: Moderately severe obstructive airway disorder. No response to bronchodilator therapy. MD GORDON Sullivan/JAK / [id number]
== END 2022-11-23 12:48 | disposition home or self-care (01) ==
LOC: HO.RESP 12:47
PROVIDERS: PCP Student in an Organized Health Care Education/Training Program; Visit Provider Internal Medicine Pulmonary Disease
DX: R06.00 Dyspnea, unspecified (principal)
CPT/HCPCS: 94060; 94727; 94729

== ENCOUNTER → 2022-11-23 14:19 | Outpatient (BNV) | payer OTHER, SELFPAY | PROVIDERS: PCP Student in an Organized Health Care Education/Training Program; Visit Provider Internal Medicine | DX: J44.9 Chronic obstructive pulmonary disease, unspecified (principal) | CPT/HCPCS: 94060; 94727; 94729 ==

== ENCOUNTER 2023-02-13 14:01 | Outpatient (AMB) | payer OTHER, SELFPAY ==
[2023-02-13 14:04] VITALS: BP 114/62; PULSE 81; BMI 22.3
--- NOTE | 2023-02-13 14:04 | MHC.OFFVIS ---
Intake Vital Signs 02/13/23 14:04 Height 5 ft 9 in Weight 151 lb 3.794 oz BMI 22.3 BP 114/62 Blood Pressure Location Lt brachial Position Sitting Pulse 81 Pulse Source Pulse Oximeter Intake Visit Reasons: Mon FUP Intake Note: Mon f/u And Drying Supervisor Cooking Casing Required: Yes And Drying Supervisor Cooking Casing Language: Registration Representative Name: darlene valdez [id number] Allergies naproxen [From NAPROSYN] Allergy (Mild, Verified 02/13/23 14:06) HIVES Medication List - Last Reconciled 02/13/23 by LENNOX PenaC amlodipine 2.5 mg PO DAILY ammonium lactate 12% topical Anoro Ellipta 62.5-25 mcg/actuation (umeclidinium-vilanterol) 1 inh inhalation DAILY 30 days NS aspirin 81 mg PO DAILY atorvastatin 80 mg PO DAILY blood pressure monitor As directed blood sugar diagnostic (FreeStyle Lite Strips) As directed blood-glucose meter (FreeStyle Lite Meter kit) As directed 3x/day carvedilol 12.5 mg PO DAILY cholecalciferol (vitamin D3) 25 mcg PO QAM dicyclomine 20 mg PO QID divalproex 500 mg PO BID dulaglutide (Trulicity) mg subcut esomeprazole magnesium 20 mg PO QAM famotidine 40 mg PO BEDTIME gabapentin 800 mg PO BID ibuprofen 800 mg PO BID insulin glargine U-300 conc 7 units subcut DAILY ipratropium-albuterol 20-100 mcg/actuation 1 puff inhalation QID lancets As directed metformin 1,000 mg PO BID mirtazapine 45 mg PO BEDTIME oxybutynin chloride 5 mg PO BID pen needle, diabetic As directed sertraline 100 mg PO DAILY HPI 6 MON FUP HPI Details Aravind is a 57-year-old male with past medical history of hypertension, hyperlipidemia, diabetes, takotsubo cardiomyopathy, nonobstructive coronary artery disease, dilated aortic root who presents for follow-up. Today he reports that he has been doing well since his last visit in October. He tells me his breathing has been comfortable and not bothersome to him. He previously had reported shortness of breath. No chest discomfort at rest or with activity. No palpitations, presyncope, syncope, falls, PND, orthopnea or edema. He is taking his meds as directed. Certified surgical coordinator used. [facility] Medical History Long-term insulin use in type 2 diabetes Diabetes type 2, uncontrolled Tobacco abuse Sleep apnea Myocardial infarction BPH (benign prostatic hyperplasia) Depression Thrombocytopenia Alcohol abuse Peripheral neuropathy COPD (chronic obstructive pulmonary disease) Seizures Essential hypertension Hyperlipidemia LDL goal <70 Type 2 diabetes mellitus with diabetic polyneuropathy Surgical History Hx of shoulder surgery History of esophagogastroduodenoscopy (EGD) H/O colonoscopy History of arthroscopic surgery of shoulder Hx of hernia repair Hx of pneumonectomy Hx of knee surgery Family History Father Cancer Diabetes Mother CVD (cardiovascular disease) Social History Household Members: Spouse Alcohol intake: never Patient Tobacco Use Status: Former Tobacco user Tobacco use type: Cigarette Years Smoked: 40 Current occupational status: unemployed Current occupation: Right Handed Review of Systems Const All systems reviewed & are unremarkable except as noted in HPI and below ENT Denies dizziness Card Denies chest pain, Denies chest pain at rest, Denies chest pain with activity, Denies rapid heart rate, Denies pedal edema, Denies edema, Denies leg edema, Denies lightheadedness, Denies palpitations, Denies dyspnea, Reports dyspnea on exertion and Denies orthopnea Resp Denies cough, Denies dyspnea and Reports dyspnea on exertion GI Denies hematochezia and Denies change in stool character Musc Denies abnormal gait, Denies limited range of motion, Denies muscle cramps, Denies muscle weakness, Denies numbness, Denies radiating pain into limb, Denies stiffness and Denies tingling Neuro Denies abnormal gait, Denies dizziness, Denies numbness and Denies tingling Endo Denies palpitations Physical Exam Vital Signs: Last Vital Signs Pulse 81 02/13/23 14:04 BP 114/62 02/13/23 14:04 BMI result Body Mass Index 22.3 Const General: cooperative, healthy appearing, comfortable and no acute distress Orientation/consciousness: patient oriented x3 Neck Neck: Yes normal visual inspection Resp Effort & Inspection: normal respiratory effort Auscultation: clear to auscultation bilaterally, no crackles, no rales, no rhonchi and no wheezes Cardio Jugular venous distension: no JVD Rate: regular rate Rhythm: regular rhythm Heart sounds: S1 normal heart sound present, S2 normal heart sound present, no murmurs and no rubs Neuro General: patient oriented x3 Extrem General: Yes normal to inspection and No no pedal edema Psych Appearance: grossly normal Mental Status: mental status grossly normal Speech and movement: Normal speech and movement present Assessment & Plan Assessment & Plan (1) Takotsubo cardiomyopathy: Code(s): I51.81 - Takotsubo syndrome Plan: History of takotsubo cardiomyopathy with normalization of EF. Last echocardiogram was done 03/06/2022 showing normal Bi V function. Echo prior to that on 11/08/2021 had shown EF 40-45%. He previously had reported some shortness of breath with activity however at this visit he denies this symptom. On examination he has no clinical signs indicating decompensated heart failure. Blood pressure is well controlled. Will have him continue on carvedilol 12.5 mg b.i.d.. Will update echocardiogram and plan to call him with results. Cardiology office visit in 1 year, sooner if needed. (2) Dilated aortic root: Code(s): I77.810 - Thoracic aortic ectasia Plan: Echo from 11/08/2021 shows mild dilation of the sinus of Valsalva 4.5 cm, mild dilation of the ascending aorta 3.6 cm. Will be updating echo as above. (3) H/O cardiac catheterization: Comment: 2018, nonobstructive CAD, left main normal, lad less than 30%, left circumflex less than 30%, RCA less than 30% stenosis Code(s): Z98.890 - Other specified postprocedural states (4) Coronary atherosclerosis: Code(s): I25.10 - Atherosclerotic heart disease of grindstone coronary artery without angina pectoris Qualifiers: Coronary Disease-Associated Artery/Lesion type: grindstone artery [place] vs. transplanted heart: grindstone heart Associated angina: without angina Qualified Code(s): I25.10 - Atherosclerotic heart disease of [place] coronary artery without angina pectoris Plan: History of mild nonobstructive coronary artery disease. No reports of anginal sounding symptoms. Cardiac catheterization from 2018 as above. Signs and symptoms of angina reviewed. Continue aspirin 81 mg daily and high-dose atorvastatin, carvedilol. (5) Hyperlipidemia LDL goal <70: Code(s): E78.5 - Hyperlipidemia, unspecified Plan: [place] LDL goal less than 70. No recent lipid profile in our system, followed by PCP. Continue atorvastatin. Orders: Orders CA echo transthoracic complete Today I51.81 - Takotsubo syndrome, I77.810 - Thoracic aortic ectasia Coding Level of Care Code Est Pt Level 3 (92749) Diagnoses Takotsubo cardiomyopathy I51.81 Dilated aortic root I77.810 H/O cardiac catheterization Z98.890 Atherosclerosis of [place]stone coronary artery of [place] heart without angina pectoris I25.10 Coronary Disease-Associated Artery/Lesion type: [place]stone artery [place] vs. transplanted heart: grindstone heart Associated angina: without angina Hyperlipidemia LDL goal <70 E78.5 Time Spent (min) 24
== END 2023-02-13 14:27 | disposition home or self-care (01) ==
PROVIDERS: PCP Student in an Organized Health Care Education/Training Program; Visit Provider Nurse Practitioner Family
DX: I51.81 Takotsubo syndrome (principal); I77.810 Thoracic aortic ectasia; Z98.890 Other specified postprocedural states; I25.10 Atherosclerotic heart disease of native coronary artery without angina pectoris; E78.5 Hyperlipidemia, unspecified
CPT/HCPCS: 99213

== ENCOUNTER → 2023-02-13 14:01 | Outpatient (BNVA) | payer OTHER, SELFPAY | PROVIDERS: PCP Student in an Organized Health Care Education/Training Program; Visit Provider Nurse Practitioner Family | DX: I51.81 Takotsubo syndrome (principal); I77.810 Thoracic aortic ectasia; I25.10 Atherosclerotic heart disease of native coronary artery without angina pectoris; E78.5 Hyperlipidemia, unspecified; Z98.890 Other specified postprocedural states | CPT/HCPCS: 99212 ==

== ENCOUNTER 2023-02-23 15:32 | Outpatient (REF) | payer OTHER, SELFPAY ==
--- NOTE | ~2023-02-23 | CT_ITS ---
EXAMINATION: CT CHEST WITHOUT CONTRAST CLINICAL INFORMATION: Other nonspecific abnormal finding of lung field. COMPARISON: Chest radiograph 09/18/2017, CT abdomen/pelvis 10/27/2022. TECHNIQUE: Multidetector volumetric CT imaging of the chest was done. Axial MIP volume rendering provided. Sagittal and coronal reformatted images were obtained. This CT examination was performed using dose optimization techniques as appropriate, variously including the following: *Automated exposure control *Adjustment of mA and/or kV according to patient size (this includes techniques or standardized protocols for targeted exams where dose is matched to indication/reason for exam; i.e. extremities or head) *Use of iterative reconstruction technique DLP: 150 mGy-cm FINDINGS: LUNGS: Some mild bibasilar atelectasis is seen. A small calcified granuloma is present at the right lung base (5:449). No suspicious or concerning lung masses are seen. No infiltrates. The previously seen right lower lobe infiltrate in 2018 is no longer present. MEDIASTINUM: There is tracheomegaly with the trachea measuring 2.7 x 3.5 cm. The thyroid appears normal. No mediastinal or hilar lymphadenopathy. Heart size is normal. Trace pericardial fluid. CORONARY ARTERY CALCIFICATION: Present. PLEURA: There is no pleural effusion. No pleural mass or thickening. AXILLA: No lymphadenopathy. UPPER ABDOMEN: Unremarkable. OSSEOUS STRUCTURES: Unremarkable. CT/CT chest wo IV con IMPRESSION: 1. No suspicious or concerning lung masses are seen. 2. Incidental note made of tracheomegaly. Fleischner guidelines were followed.
== END 2023-02-23 15:33 | disposition home or self-care (01) ==
LOC: HO.CT 15:32
PROVIDERS: PCP Student in an Organized Health Care Education/Training Program; Visit Provider Internal Medicine Pulmonary Disease
DX: R91.8 Other nonspecific abnormal finding of lung field (principal); Z93.8 Other artificial opening status
CPT/HCPCS: 71250

== ENCOUNTER 2023-03-07 14:01 | Outpatient (AMB) | payer OTHER, SELFPAY ==
[2023-03-07 14:02] VITALS: BP 120/77; PULSE 74; O2SAT 96; BMI 22.1
--- NOTE | 2023-03-07 14:02 | MHC.OFFVIS ---
Intake Vital Signs 03/07/23 14:02 Height 5 ft 9 in Weight 149 lb 14.629 oz BMI 22.1 BP 120/77 Blood Pressure Location Rt brachial Position Sitting Pulse 74 Pulse Source Doppler Pulse Oximetry (%) 96 Oxygen Delivery Method Room Air Intake Visit Reasons: copd/follow up on ct Asset Protection Specialist Required: Yes Asset Protection Specialist Name: Liliana Eamon Burks Allergies naproxen [From NAPROSYN] Allergy (Mild, Verified 03/07/23 14:04) HIVES HPI copd/follow up on ct HPI Details 57-year-old gentleman, former 60 pack-year smoker, quit 2018, with underlying history of left-sided chest tube for unclear indication approximately 10 years prior with reversal, now with some dyspnea on exertion referred for evaluation of his pulmonary concerns. Patient states that he has been using Breo with suboptimal control of his symptoms. He denies having recent pulmonary function testing or lung cancer screening. He denies family history of lung disease. 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 He denies recent acute exacerbations. At the last office visit patient has been started on Anoro, however he denies any significant changes in his symptoms. He completed his pulmonary function test showed underlying moderate COPD. His CT chest was essentially benign. [facility] Medical History Long-term insulin use in type 2 diabetes Diabetes type 2, uncontrolled Tobacco abuse Sleep apnea Myocardial infarction BPH (benign prostatic hyperplasia) Depression Thrombocytopenia Alcohol abuse Peripheral neuropathy COPD (chronic obstructive pulmonary disease) Seizures Essential hypertension Hyperlipidemia LDL goal <70 Type 2 diabetes mellitus with diabetic polyneuropathy Surgical History Hx of shoulder surgery History of esophagogastroduodenoscopy (EGD) H/O colonoscopy History of arthroscopic surgery of shoulder Hx of hernia repair Hx of pneumonectomy Hx of knee surgery Family History Father Cancer Diabetes Mother CVD (cardiovascular disease) Social History Household Members: Spouse Alcohol intake: never Patient Tobacco Use Status: Former Tobacco user Tobacco use type: Cigarette Years Smoked: 40 Current occupational status: unemployed Current occupation: Right Handed Review of Systems Const Denies daytime sleepiness, Denies excessive sweating, Denies fatigue, Denies fever(s), Denies lethargy, Denies malaise, Denies night sweats, Denies snoring and Denies weight loss Eyes Denies blurry vision and Denies itchy eyes ENT Denies nasal congestion, Denies post nasal drip, Denies sinus pain, Denies sinus pressure and Denies other ( Thrush) Card Denies chest pain, Denies pedal edema, Denies dyspnea, Denies orthopnea and Denies paroxysmal nocturnal dyspnea Resp Denies cough, Denies hemoptysis, Denies excessive phlegm production, Denies dyspnea, Denies snoring and Denies wheezing GI Denies abdominal pain and Denies heartburn Musc Denies myalgias, Denies arthralgias and Denies joint swelling Skin/Breast Denies rash Neuro Denies memory loss and Denies seizure-like activity Psych Denies abnormal sleep pattern, Denies anxiety and Denies memory loss Endo Denies excessive sweating, Denies fatigue and Denies heat intolerance Toño/Lymph Denies easy bruising Aller/Immun Denies itchy eyes, Denies seasonal rhinorrhea and Denies wheezing Physical Exam Vital Signs: Last Vital Signs Pulse 74 03/07/23 14:02 BP 120/77 03/07/23 14:02 Pulse Ox 96 03/07/23 14:02 Oxygen Delivery Method Room Air 03/07/23 14:02 BMI result Body Mass Index 22.1 Const General: no acute distress and alert Nutritional Appearance: not obese Orientation/consciousness: Other orientation findings ( oriented) HEENT Head: Yes atraumatic Eyes General: appearance normal, both eyes and all related structures Sclerae: sclerae normal EOM: EOMs intact bilaterally Neck Neck: Yes supple Lymphatic: no lymphadenopathy noted Resp Effort & Inspection: normal respiratory effort and no use of accessory muscles Auscultation: clear to auscultation bilaterally Cardio Rate: regular rate Rhythm: regular rhythm Heart sounds: no gallops, no murmurs and no rubs Skin General skin exam: other ( warm) Extrem General: No clubbing, No cyanosis and No edema Assessment & Plan Assessment & Plan (1) COPD (chronic obstructive pulmonary disease): Code(s): J44.9 - Chronic obstructive pulmonary disease, unspecified Plan: Results of PFT reviewed, underlying moderate COPD. Now central asymptomatic. Continue Anoro and albuterol MDI. (2) Pulmonary nodules: Code(s): R91.8 - Other nonspecific abnormal finding of lung field Plan: Results of CT chest reviewed no worrisome nodules at this time. Continue with yearly screening. Coding Level of Care Code Est Pt Level 4 (93371) Diagnoses COPD (chronic obstructive pulmonary disease) J44.9 Pulmonary nodules R91.8
== END 2023-03-07 14:18 | disposition home or self-care (01) ==
PROVIDERS: PCP Student in an Organized Health Care Education/Training Program; Visit Provider Internal Medicine Pulmonary Disease
DX: J44.9 Chronic obstructive pulmonary disease, unspecified (principal); R91.8 Other nonspecific abnormal finding of lung field
CPT/HCPCS: 99214

== ENCOUNTER → 2023-03-07 14:01 | Outpatient (BNVA) | payer OTHER, SELFPAY | PROVIDERS: PCP Student in an Organized Health Care Education/Training Program; Visit Provider Internal Medicine Pulmonary Disease | DX: J44.9 Chronic obstructive pulmonary disease, unspecified (principal); R91.8 Other nonspecific abnormal finding of lung field | CPT/HCPCS: 99212 ==

== ENCOUNTER 2023-06-28 11:20 | Outpatient (REF) | payer OTHER, SELFPAY ==
[2023-06-28 17:47] LABS: Alanine Aminotransferase 12 U/L (0-40); Alkaline Phosphatase 85 U/L (39-117); Anion Gap 8 (12-20); Aspartate Amino Transferase 13 U/L (5-37); Bilirubin Direct 0.1 mg/dL (0.0-0.5); Bilirubin Total 0.3 mg/dL (0.0-1.0); Blood Urea Nitrogen 14 mg/dL (9-16); Carbon Dioxide 30 mmol/L (22-29); Chloride 106 mmol/L (96-108); Cholesterol 105 mg/dL (<200); Estimated Glomerular Filt Rate > 60; Glucose Random 130 mg/dL (60-115); HDL Cholesterol 35 mg/dL (>40); LDL Cholesterol Calculated 61 mg/dL (<100); Potassium 4.2 mmol/L (3.3-5.1); Sodium 140 mmol/L (135-145); Total Protein 6.8 g/dL (6.5-8.0); Triglycerides 48 mg/dL (<150)
== END 2023-06-28 11:21 | disposition home or self-care (01) ==
LOC: HO.CHCLDS 11:20
PROVIDERS: Visit Provider Student in an Organized Health Care Education/Training Program
DX: E11.40 Type 2 diabetes mellitus with diabetic neuropathy, unspecified (principal); Z79.4 Long term (current) use of insulin
CPT/HCPCS: 36415; 80048; 80061; 80076

== ENCOUNTER 2023-09-19 11:02 | Outpatient (AMB) | payer OTHER, SELFPAY ==
--- NOTE | 2023-09-19 11:05 | A.OFFVIS_ITS ---
Vital Signs 09/19/23 11:09 Height 5 ft 9 in Weight 149 lb BMI 22.0 Handedness Left Intake Visit Reasons: New Prob - Left MF locking Intake Note: Aravind is a 58 year old left hand dominants male who presents today for a evaluation of his left MF locking. Patient reports his middle finger locks everyday and night. He states having off and on numbness and tingling in his middle finger, ring finger and pinky finger for about 4 months. Patient notices that it doesn't matter what he does it just locks in place, also he is demonstrating pain on the A-1 johnna. Allergies naproxen [From NAPROSYN] Allergy (Mild, Verified 09/19/23 11:08) HIVES HPI HPI New Prob - Left MF locking: Details: 58-year-old left hand dominant male, who is Tajik speaking, presents in the office today for an evaluation of left middle finger locking. Patient reports his left middle finger locks every day and night. He states there is no specific activity that makes the middle digit lock. He reports pain along the A1 johnna. Patient confirms intermittent numbness and tingling in the left middle, ring, and little digits, which has been present for 4 months, since 05/2023. Patient has a significant medical history of diabetes mellitus. [facility] Medical History Long-term insulin use in type 2 diabetes Diabetes type 2, uncontrolled Tobacco abuse Sleep apnea Myocardial infarction BPH (benign prostatic hyperplasia) Depression Thrombocytopenia Alcohol abuse Peripheral neuropathy COPD (chronic obstructive pulmonary disease) Seizures Essential hypertension Hyperlipidemia LDL goal <70 Type 2 diabetes mellitus with diabetic polyneuropathy Surgical History Hx of shoulder surgery History of esophagogastroduodenoscopy (EGD) H/O colonoscopy History of arthroscopic surgery of shoulder Hx of hernia repair Hx of pneumonectomy Hx of knee surgery Family History Father Cancer Diabetes Mother CVD (cardiovascular disease) Social History Household Members: Spouse Alcohol intake: never Patient Tobacco Use Status: Former Tobacco user Tobacco use type: Cigarette Years Smoked: 40 Current occupational status: unemployed Current occupation: Right Handed Review of Systems Const All systems reviewed & are unremarkable except as noted in HPI and below Physical Exam Vital Signs: BMI result Body Mass Index 22.0 Const General: cooperative, healthy appearing and no acute distress Resp Effort & Inspection: normal respiratory effort and able to speak in complete sentences Cardio Rate: regular rate Peripheral pulses: Peripheral pulses 2+ throughout GI Palpation (GI): Soft to palpation Skin Lesions: no lesions Rashes: no rashes Extrem Other: Left hand: Normal to inspection. No ecchymosis, erythema, or edema. Tenderness to palpation over the A1 johnna. Able to perform full finger flexion, extension, abduction, adduction, finger cross, okay sign, and thumbs up without deficit. Left middle finger active locking. Able to make a closed fist. Numbness and tingling in the middle, ring, and little fingers. Negative Tinel?s at the carpal tunnel. Positive Phalen?s. Capillary refill is brisk. Radial pulse intact. Assessment & Plan Assessment & Plan (1) Trigger finger, left middle finger: Code(s): M65.332 - Trigger finger, left middle finger Category: Medical (2) Left carpal tunnel syndrome: Code(s): G56.02 - Carpal tunnel syndrome, left upper limb Category: Medical Plan Mr. Mosqueda is a 58-year-old left hand dominant male, who is Tajik speaking, presents in the office today for an evaluation of left middle finger locking. Patient reports his left middle finger locks every day and night. He states there is no specific activity that makes the middle digit lock. He reports pain along the A1 johnna. Patient confirms intermittent numbness and tingling in the left middle, ring, and little digits, which has been present for 4 months, since 05/2023. Patient has a significant medical history of diabetes mellitus. An order for an EMG study was made in the office today due to the patient r eporting numbness and tingling in the left middle, ring, and little fingers. He will follow up with Dr. Esquivel to discuss middle finger trigger finger release and possible left carpal tunnel release to be performed at the same time, depending on the EMG results. Patient will call the office after the EMG is obtained. Follow up will be after the EMG is obtained with Dr. Esquivel, or sooner if needed. Patient Instructions: Scribed by Brianna Jama, clinical medical transcriptionist, for Estela Shields PA-C on 09/19/2023 at 11:06 am, EST. Coding Level of Care Code New Pt Level 4 (44982) Diagnoses Trigger finger, left middle finger M65.332 Left carpal tunnel syndrome G56.02
[2023-09-19 11:09] VITALS: BMI 22.0
== END 2023-09-19 11:43 | disposition home or self-care (01) ==
PROVIDERS: PCP Student in an Organized Health Care Education/Training Program; Visit Provider Physician Assistant
DX: M65.332 Trigger finger, left middle finger (principal); G56.02 Carpal tunnel syndrome, left upper limb
CPT/HCPCS: 99214

== ENCOUNTER → 2023-09-19 11:02 | Outpatient (BNVA) | payer OTHER, SELFPAY | PROVIDERS: PCP Student in an Organized Health Care Education/Training Program; Visit Provider Physician Assistant | DX: M65.332 Trigger finger, left middle finger (principal); G56.02 Carpal tunnel syndrome, left upper limb | CPT/HCPCS: 99212 ==

== ENCOUNTER 2023-11-07 12:20 | Emergency (ER) | payer OTHER, SELFPAY | END 2023-11-07 14:09 | disposition left against medical advice (07) | LOC: HO.ED 13:59 | PROVIDERS: Emergency Provider Emergency Medicine; PCP Student in an Organized Health Care Education/Training Program | DX: M54.50 Low back pain, unspecified (principal); Z53.21 Procedure and treatment not carried out due to patient leaving prior to being seen by health care provider ==

== ENCOUNTER 2023-11-29 13:01 | Outpatient (REF) | payer OTHER, SELFPAY ==
--- NOTE | 2023-11-29 13:06 | EMG_ITS ---
Chief complaint: Left middle finger triggering with some numbness Reason for referral: Evaluate for Carpal Tunnel Syndrome Referred by: Dr. Esquivel Procedure done: Left upper extremity NCS/EMG Precautions and/or limitations: None The limb temperature was monitored continuously and remained between 32-36 degrees C during the performance of the NCS. Nerve Conduction Studies Anti Sensory Summary Table ?Stim Site NR Onset (ms) Norm Onset (ms) Peak (ms) Norm Peak (ms) O-P Amp (?V) Norm O-P Amp Site1 Site2 Delta-0 (ms) Dist (cm) Micheal (m/s) Norm Micheal (m/s) Left Median Anti Sensory (2nd Digit) Wrist ? 2.8 3.6 <3.6 10.3 >10 Wrist 2nd Digit 2.8 14.0 50 Left Radial Anti Sensory (Thumb) Forearm ? 1.8 2.2 <3.1 22.2 Forearm Thumb 1.8 0.0 Left Ulnar Anti Sensory (5th Digit) Wrist ? 1.1 3.6 <3.7 21.9 >15.0 Wrist 5th Digit 1.1 14.0 127 Motor Summary Table ?Stim Site NR Onset (ms) Norm Onset (ms) O-P Amp (mV) Norm O-P Amp iAmp (mV) Amp (1st) (%) Site1 Site2 Delta-0 (ms) Dist (cm) Micheal (m/s) Norm Micheal (m/s) Left Median Motor (Abd Poll Brev) Wrist ? 3.4 <3.9 11.6 >4.5 12.8 100.0 Elbow Wrist 4.1 22.0 54 >45 Elbow ? 7.5 10.3 11.5 88.8 Left Ulnar Motor (Abd Dig Minimi) Wrist ? 3.0 <3.0 4.9 >5 6.7 100.0 B Elbow Wrist 4.1 20.5 50 >45 B Elbow ? 7.1 5.2 7.3 106.1 A Elbow B Elbow 2.0 10.0 50 >45 A Elbow ? 9.1 5.2 7.1 106.1 EMG ?Side Muscle Nerve Root Ins Act Fibs Psw Amp Dur Poly Recrt Int Pat Comment Left 1stDorInt Ulnar C8-T1 Nml Nml Nml Nml Nml 0 Nml Complete Left FlexCarRad Median C6-7 Nml Nml Nml Nml Nml 0 Nml Complete Left Biceps Musculocut C5-6 Nml Nml Nml Nml Nml 0 Nml Complete Left Triceps Radial C6-7-8 Nml Nml Nml Nml Nml 0 Nml Complete Left Deltoid Axillary C5-6 Nml Nml Nml Nml Nml 0 Nml Complete Left FlexCarpiUln Ulnar C8,T1 Nml Nml Nml Nml Nml 0 Nml Complete FINDINGS: All motor and sensory nerves tested showed normal latencies, amplitudes and conduction velocities. Concentric needle EMG was performed in selected muscles of the left upper extremity. Study did not reveal signs of electric abnormalities as shown in the table above. IMPRESSION: 1. This is a normal study. 2. There is no electrodiagnostic evidence for median neuropathy, ulnar neuropathy, brachial plexopathy, or cervical radiculopathy. Thank you for your kind referral. Delia West MD, POORNIMA Board Certified, [place] Board of Physical Medicine and Rehabilitation (ABPMR) Board Certified, [place] Board of Electrodiagnostic Medicine (ABEM) [place] [id number] [facility]
== END 2023-11-29 13:02 | disposition home or self-care (01) ==
LOC: HO.NEURO 13:01
PROVIDERS: PCP Student in an Organized Health Care Education/Training Program; Visit Provider Orthopaedic Surgery
DX: R20.0 Anesthesia of skin (principal); R20.2 Paresthesia of skin
CPT/HCPCS: 95886; 95909

== ENCOUNTER → 2023-11-29 13:06 | Outpatient (BNV) | payer OTHER, SELFPAY | PROVIDERS: PCP Student in an Organized Health Care Education/Training Program; Visit Provider Physical Medicine & Rehabilitation | DX: M65.332 Trigger finger, left middle finger (principal); R20.2 Paresthesia of skin | CPT/HCPCS: 95886; 95909 ==

== ENCOUNTER 2023-12-21 11:14 | Outpatient (AMB) | payer OTHER, SELFPAY ==
[2023-12-21 11:18] VITALS: BP 140/84; PULSE 69; O2SAT 98; BMI 21.6
--- NOTE | 2023-12-21 11:18 | MHC.OFFVIS ---
Vital Signs 12/21/23 11:18 Height 5 ft 9 in Weight 146 lb 9.718 oz BMI 21.6 BP 140/84 H Blood Pressure Location Rt brachial Position Sitting Pulse 69 Pulse Source Doppler Pulse Oximetry (%) 98 Oxygen Delivery Method Room Air Intake Visit Reasons: COPD Superintendent Transmission Required: Yes Superintendent Transmission Name: Liliana SheffieldKadeGonzález Allergies naproxen [From NAPROSYN] Allergy (Mild, Verified 12/21/23 11:22) HIVES HPI HPI COPD: Details: 58-year-old gentleman, former 60 pack-year smoker, quit 2018, with underlying history of left-sided chest tube for unclear indication approximately 10 years prior with reversal, now with some dyspnea on exertion referred for evaluation of his pulmonary concerns. Patient states that he has been using Breo with suboptimal control of his symptoms. He denies having recent pulmonary function testing or lung cancer screening. He denies family history of lung disease. 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 He denies recent acute exacerbations. After the last office visit patient continued on Anoro and Combivent with reasonable control of his symptoms until approximately 2 months prior when he started getting worsening dyspnea and wheezing, but no productive cough. [facility] Medical History Long-term insulin use in type 2 diabetes Diabetes type 2, uncontrolled Tobacco abuse Sleep apnea Myocardial infarction BPH (benign prostatic hyperplasia) Depression Thrombocytopenia Alcohol abuse Peripheral neuropathy COPD (chronic obstructive pulmonary disease) Seizures Essential hypertension Hyperlipidemia LDL goal <70 Type 2 diabetes mellitus with diabetic polyneuropathy Surgical History Hx of shoulder surgery History of esophagogastroduodenoscopy (EGD) H/O colonoscopy History of arthroscopic surgery of shoulder Hx of hernia repair Hx of pneumonectomy Hx of knee surgery Family History Father Cancer Diabetes Mother CVD (cardiovascular disease) Social History Household Members: Spouse Alcohol intake: never Patient Tobacco Use Status: Former Tobacco user Tobacco use type: Cigarette Years Smoked: 40 Current occupational status: unemployed Current occupation: Right Handed Review of Systems Const Denies daytime sleepiness, Denies excessive sweating, Denies fatigue, Denies fever(s), Denies lethargy, Denies malaise, Denies night sweats, Denies snoring and Denies weight loss Eyes Denies blurry vision and Denies itchy eyes ENT Denies nasal congestion, Denies post nasal drip, Denies sinus pain, Denies sinus pressure and Denies other ( Thrush) Card Denies chest pain, Denies pedal edema, Denies dyspnea, Reports dyspnea on exertion, Denies orthopnea and Denies paroxysmal nocturnal dyspnea Resp Denies cough, Denies hemoptysis, Denies excessive phlegm production, Denies dyspnea, Reports dyspnea on exertion, Denies snoring and Reports wheezing GI Denies abdominal pain and Denies heartburn Musc Denies myalgias, Denies arthralgias and Denies joint swelling Skin/Breast Denies rash Neuro Denies memory loss and Denies seizure-like activity Psych Denies abnormal sleep pattern, Denies anxiety and Denies memory loss Endo Denies excessive sweating, Denies fatigue and Denies heat intolerance Toño/Lymph Denies easy bruising Aller/Immun Denies itchy eyes, Denies seasonal rhinorrhea and Reports wheezing Physical Exam Vital Signs: Last Vital Signs Pulse 69 12/21/23 11:18 BP 140/84 H 12/21/23 11:18 Pulse Ox 98 12/21/23 11:18 Oxygen Delivery Method Room Air 12/21/23 11:18 BMI result Body Mass Index 21.6 Const General: no acute distress and alert Nutritional Appearance: not obese Orientation/consciousness: Other orientation findings ( oriented) HEENT Head: Yes atraumatic Eyes General: appearance normal, both eyes and all related structures Sclerae: sclerae normal EOM: EOMs intact bilaterally Neck Neck: Yes supple Lymphatic: no lymphadenopathy noted Resp Effort & Inspection: normal respiratory effort and no use of accessory muscles Auscultation: other (Poor bilateral air movement) Cardio Rate: regular rate Rhythm: regular rhythm Heart sounds: no gallops, no murmurs and no rubs Skin General skin exam: other ( warm) Extrem General: No clubbing, No cyanosis and No edema Assessment & Plan Assessment & Plan (1) COPD (chronic obstructive pulmonary disease): Code(s): J44.9 - Chronic obstructive pulmonary disease, unspecified Category: Medical Plan: Suboptimal control on Anoro and Combivent, will add duo nebs. Will treat mild exacerbation with a course of prednisone. (2) Personal history of nicotine dependence: Code(s): Z87.891 - Personal history of nicotine dependence Category: Medical Plan: Follow-up CT chest is pending for March of 2024. Orders: Orders CT lung screening 03/22/24 Z87.891 - Personal history of nicotine dependence Medications: New ipratropium-albuterol 0.5 mg-3 mg(2.5 mg base)/3 mL 3 mL inhalation Q4-6H PRN 180 mL 6RF wheezing prednisone 40 mg (2 x 20 mg) PO DAILY 10 tabs 0RF Z87.891 - Personal history of nicotine dependence Coding Level of Care Code Est Pt Level 4 (95461) Diagnoses COPD (chronic obstructive pulmonary disease) J44.9 Personal history of nicotine dependence Z87.891
== END 2023-12-21 11:34 | disposition home or self-care (01) ==
PROVIDERS: PCP Student in an Organized Health Care Education/Training Program; Visit Provider Internal Medicine Pulmonary Disease
DX: J44.9 Chronic obstructive pulmonary disease, unspecified (principal); Z87.891 Personal history of nicotine dependence
CPT/HCPCS: 99214

== ENCOUNTER → 2023-12-21 11:14 | Outpatient (BNVA) | payer OTHER, SELFPAY | PROVIDERS: PCP Student in an Organized Health Care Education/Training Program; Visit Provider Internal Medicine Pulmonary Disease | DX: J44.9 Chronic obstructive pulmonary disease, unspecified (principal); Z87.891 Personal history of nicotine dependence | CPT/HCPCS: 99212 ==

== ENCOUNTER 2024-01-03 13:22 | Outpatient (AMB) | payer OTHER, SELFPAY ==
--- NOTE | 2024-01-03 13:25 | MHC.OFFVIS ---
Vital Signs 01/03/24 13:26 Height 5 ft 9 in Weight 146 lb 9 oz BMI 21.6 Intake Visit Reasons: OV- EMG review Left Hand Pain Intake Note: Aravind is a 58 year old right hand dominant male who presents today for an EMG review, done 11/29/23. Patient reports -. Laboratory Helper Required: No Allergies naproxen [From NAPROSYN] Allergy (Mild, Verified 01/03/24 13:26) HIVES HPI HPI OV- EMG review Left Hand Pain: Details: Aravind is a 58 year old right hand dominant Diabetic Vietnamese speaking man who presents for a NCS review of his left hand numbness. They complains of painful locking & catching of his left middle finger. They says the pain is severe enough that they cannot sleep . He denies any numbness today in clinic and says his sensation is normal today. They have a Hx of DM, [place], COPD, smoking, ETOH abuse, & Depression. They say their Diabetes is [ ]. PFS Medical History Long-term insulin use in type 2 diabetes Diabetes type 2, uncontrolled Tobacco abuse Sleep apnea Myocardial infarction BPH (benign prostatic hyperplasia) Depression Thrombocytopenia Alcohol abuse Peripheral neuropathy COPD (chronic obstructive pulmonary disease) Seizures Essential hypertension Hyperlipidemia LDL goal <70 Type 2 diabetes mellitus with diabetic polyneuropathy Surgical History Hx of shoulder surgery History of esophagogastroduodenoscopy (EGD) H/O colonoscopy History of arthroscopic surgery of shoulder Hx of hernia repair Hx of pneumonectomy Hx of knee surgery Family History Father Cancer Diabetes Mother CVD (cardiovascular disease) Social History Household Members: Spouse Alcohol intake: never Patient Tobacco Use Status: Former Tobacco user Tobacco use type: Cigarette Years Smoked: 40 Current occupational status: unemployed Current occupation: Right Handed Review of Systems Const All systems reviewed & are unremarkable except as noted in HPI and below Physical Exam Vital Signs: BMI result Body Mass Index 21.6 Const General: cooperative, healthy appearing and no acute distress Orientation/consciousness: patient oriented x3 HEENT Head: Yes normocephalic and Yes atraumatic Eyes EOM: EOMs intact bilaterally Resp Effort & Inspection: normal respiratory effort and able to speak in complete sentences Cardio Jugular venous distension: no JVD Skin General skin exam: turgor normal Rashes: no rashes Neuro General: patient oriented x3 Extrem Other: Evaluation of Left Upper Extremity: The patient is alert, oriented, and in no acute distress Neuro: Median, Ulnar, Radial nerves motor and sensory intact and sensation is normal to the tips of all digits No thenar or intrinsic wasting Good APB muscle belly firing and good finger cross Vascular: Cap refill brisk ROM: He can make a fist and extend all his digits Visible and palpable locking and catching of the middle finger Tender over the a1 johnna of the middle finger Skin: No lacerations or abrasions. General: No Ecchymosis. No Erythema or evidence of infection. Nerve Conduction Study: IMPRESSION: 1. This is a normal study. 2. There is no electrodiagnostic evidence for median neuropathy, ulnar neuropathy, brachial plexopathy, or cervical radiculopathy. Delia West MD, POORNIMA 11/29/23 Psych Appearance: grossly normal Affect: normal affect Attitude: cooperative Office Procedures Fracture Care Details: No fracture, injection Fracture Billing Code: Fracture Billing Code Assessment & Plan Assessment & Plan (1) Trigger finger, left middle finger: Code(s): M65.332 - Trigger finger, left middle finger Category: Medical (2) Diabetes mellitus: Code(s): E11.9 - Type 2 diabetes mellitus without complications Category: Medical Plan Assessment & Plan: 1. Left middle finger trigger finger I educated them about this condition I discussed operative and non-operative treatment options The patient would like to proceed with an injection Injection #1: The risks and benefits of a steroid injection including but not limited to risk of damage to blood vessels, nerves, tendons, infection, skin bleaching, failure to improve symptoms, increased pain, and possible need for further injections or other intervention were discussed with the patient and the patient wishes to proceed with the steroid injection. Once consent was obtained, I sterilely prepped the area over the A1 johnna of the flexor tendon sheath of the Left middle finger. I then injected the flexor tendon sheath with a combination of 1 mL of dexamethasone (4mg/ml), and 1% lidocaine. The patient tolerated the procedure well with no complications. If the patient continues to have locking and catching 4-6 weeks following this injection, they may call to schedule appointment to discuss alternative treatment options I am going to have Deedee call him and let him know that he should already be working on ensuring that his diabetes is under good control, as it will need to be under good control if he needs to have surgery. Follow-up prn Scribed for Shireen Esquivel MD by Juan Khanna, medical records receptionist, on 01/03/24 at 2:00 PM, EST. Coding Level of Care Code New Pt Level 3 (99228) Diagnoses Trigger finger, left middle finger M65.332 Diabetes mellitus E11.9 CPT Codes Fracture Care - Fracture Billing Code: Fracture Billing Code ([id number])
[2024-01-03 13:26] VITALS: BMI 21.6
== END 2024-01-03 14:26 | disposition home or self-care (01) ==
PROVIDERS: PCP Student in an Organized Health Care Education/Training Program; Visit Provider Orthopaedic Surgery
DX: M65.332 Trigger finger, left middle finger (principal); E11.9 Type 2 diabetes mellitus without complications
CPT/HCPCS: 20550; 99203

== ENCOUNTER → 2024-01-03 13:22 | Outpatient (BNVA) | payer OTHER, SELFPAY | PROVIDERS: PCP Student in an Organized Health Care Education/Training Program; Visit Provider Orthopaedic Surgery | DX: M65.332 Trigger finger, left middle finger (principal); E11.9 Type 2 diabetes mellitus without complications | CPT/HCPCS: 20550; 99202; J1100 ==

== ENCOUNTER 2024-02-08 13:56 | Outpatient (AMB) | payer OTHER, SELFPAY ==
--- NOTE | 2024-02-08 14:00 | MHC.OFFVIS ---
Intake Visit Reasons: OV Bilat shoulder pain rt side worse Intake Note: Aravind is a 56 year old right hand dominant male who presents today for a follow up of his bilateral shoulder pain. Right shoulder is worse than the left and he is s/p Right SAD 12/15/21. Allergies naproxen [From NAPROSYN] Allergy (Mild, Verified 02/08/24 14:01) HIVES HPI HPI OV Bilat shoulder pain rt side worse: Details: A cyst continues to have right shoulder pain. He has difficulty abducting his arm and states he has tried physical therapy but continues to have discomfort. He has pain at night pain with lifting activities. He had a decompression surgery about 2 years ago which was only minimally helpful. [facility] Medical History Long-term insulin use in type 2 diabetes Diabetes type 2, uncontrolled Tobacco abuse Sleep apnea Myocardial infarction BPH (benign prostatic hyperplasia) Depression Thrombocytopenia Alcohol abuse Peripheral neuropathy COPD (chronic obstructive pulmonary disease) Seizures Essential hypertension Hyperlipidemia LDL goal <70 Type 2 diabetes mellitus with diabetic polyneuropathy Surgical History Hx of shoulder surgery History of esophagogastroduodenoscopy (EGD) H/O colonoscopy History of arthroscopic surgery of shoulder Hx of hernia repair Hx of pneumonectomy Hx of knee surgery Family History Father Cancer Diabetes Mother CVD (cardiovascular disease) Social History Household Members: Spouse Alcohol intake: never Patient Tobacco Use Status: Former Tobacco user Tobacco use type: Cigarette Years Smoked: 40 Current occupational status: unemployed Current occupation: Right Handed Physical Exam Extrem Other: On exam he has 4/5 strength with overhead activity and external rotation to 35 degrees. Assessment & Plan Assessment & Plan (1) Dysfunction of right rotator cuff: Code(s): M67.911 - Unspecified disorder of synovium and tendon, right shoulder Category: Medical Plan: He has is continues to have dysfunction of his right rotator cuff even after physical therapy and surgery. He is very weak on exam I discussed treatment options with him. He feels like steroids have never been helpful for him nor has physical therapy and an MRI was ordered to assess the rotator cuff. Orders: Orders MR shoulder RT wo con Today M67.911 - Unspecified disorder of synovium and tendon, right shoulder Coding Level of Care Code Est Pt Level 3 (04065) Diagnoses Dysfunction of right rotator cuff M67.911
== END 2024-02-08 14:34 | disposition home or self-care (01) ==
PROVIDERS: PCP Student in an Organized Health Care Education/Training Program; Visit Provider Orthopaedic Surgery
DX: M67.911 Unspecified disorder of synovium and tendon, right shoulder (principal)
CPT/HCPCS: 99213

== ENCOUNTER → 2024-02-08 13:56 | Outpatient (BNVA) | payer OTHER, SELFPAY | PROVIDERS: PCP Student in an Organized Health Care Education/Training Program; Visit Provider Orthopaedic Surgery | DX: M67.911 Unspecified disorder of synovium and tendon, right shoulder (principal); M25.562 Pain in left knee; M25.561 Pain in right knee | CPT/HCPCS: 99212 ==

== ENCOUNTER 2024-02-13 12:47 | Outpatient (AMB) | payer OTHER, SELFPAY ==
[2024-02-13 12:51] VITALS: BP 100/60; PULSE 68; BMI 20.5
--- NOTE | 2024-02-13 12:51 | A.OFFVIS_ITS ---
Vital Signs 02/13/24 12:51 Height 5 ft 9 in Weight 138 lb 14.259 oz BMI 20.5 BP 100/60 Blood Pressure Location Lt brachial Position Sitting Pulse 68 Pulse Source Monitor Intake Visit Reasons: 1 yr f/up Medical Assistant Required: No Cardiovascular Invasive Specialist: Cardiovascular Invasive Specialist Present Allergies naproxen [From NAPROSYN] Allergy (Mild, Verified 02/13/24 12:53) HIVES Medication List - Last Reconciled 02/13/24 by LENNOX PenaC amlodipine 2.5 mg PO QAM ammonium lactate 12% topical Anoro Ellipta 62.5-25 mcg/actuation (umeclidinium-vilanterol) 1 ea inhalation DAILY NS aspirin 81 mg PO DAILY atorvastatin 80 mg PO DAILY blood pressure monitor As directed blood sugar diagnostic (FreeStyle Lite Strips) As directed blood-glucose meter (FreeStyle Lite Meter kit) As directed 3x/day carvedilol 12.5 mg PO BID 90 days cetirizine 10 mg PO DAILY cholecalciferol (vitamin D3) 25 mcg PO QAM cholecalciferol (vitamin D3) 50 mcg PO DAILY dapagliflozin propanediol (Farxiga) 5 mg PO DAILY diclofenac sodium 1% topical BID dicyclomine 20 mg PO QID divalproex 500 mg PO BID esomeprazole magnesium 20 mg PO QAM famotidine 40 mg PO BEDTIME gabapentin 800 mg PO BID ibuprofen 800 mg PO BID insulin glargine U-300 conc 7 units subcut DAILY ipratropium-albuterol 0.5 mg-3 mg(2.5 mg base)/3 mL 3 mL inhalation Q4-6H PRN ipratropium-albuterol 20-100 mcg/actuation 1 puff inhalation QID lancets As directed metformin 1,000 mg PO BID mirtazapine 45 mg PO BEDTIME oxybutynin chloride 5 mg PO BID pen needle, diabetic As directed prednisone 40 mg (2 x 20 mg) PO DAILY sertraline 100 mg PO DAILY HPI HPI 1 yr f/up: Details: Aravind is a 58-year-old male with past medical history of hypertension, hyperlipidemia, diabetes, takotsubo cardiomyopathy, nonobstructive coronary artery disease, dilated aortic root who presents for follow-up. Today he reports that he has been doing well since his last visit in 02/13/23. He does have some sob at times which he relates to asthma. He now has an updraft machine at home and can do treatments as needed. No PND, orthopnea or edema. No chest discomfort at rest or with activity. No palpitations, presyncope, syncope, falls. He is taking his meds as directed. He is active during the day. present, assisting with [place] translation at their request. [facility] Medical History Long-term insulin use in type 2 diabetes Diabetes type 2, uncontrolled Tobacco abuse Sleep apnea Myocardial infarction BPH (benign prostatic hyperplasia) Depression Thrombocytopenia Alcohol abuse Peripheral neuropathy COPD (chronic obstructive pulmonary disease) Seizures Essential hypertension Hyperlipidemia LDL goal <70 Type 2 diabetes mellitus with diabetic polyneuropathy Surgical History Hx of shoulder surgery History of esophagogastroduodenoscopy (EGD) H/O colonoscopy History of arthroscopic surgery of shoulder Hx of hernia repair Hx of pneumonectomy Hx of knee surgery Family History Father Cancer Diabetes Mother CVD (cardiovascular disease) Social History Household Members: Spouse Alcohol intake: never Patient Tobacco Use Status: Former Tobacco user Tobacco use type: Cigarette Years Smoked: 40 Current occupational status: unemployed Current occupation: Right Handed Review of Systems Const All systems reviewed & are unremarkable except as noted in HPI and below ENT Denies dizziness Card Denies chest pain, Denies chest pain at rest, Denies chest pain with activity, Denies rapid heart rate, Denies pedal edema, Denies edema, Denies leg edema, Denies lightheadedness, Denies palpitations, Denies dyspnea, Denies dyspnea on exertion and Denies orthopnea Resp Denies cough, Denies dyspnea and Denies dyspnea on exertion GI Denies hematochezia and Denies change in stool character Musc Denies abnormal gait, Denies limited range of motion, Denies muscle cramps, Denies muscle weakness, Denies numbness, Denies radiating pain into limb, Denies stiffness and Denies tingling Neuro Denies abnormal gait, Denies dizziness, Denies numbness and Denies tingling Endo Denies palpitations Physical Exam Vital Signs: BMI result Body Mass Index 20.5 Const General: cooperative, healthy appearing, comfortable and no acute distress Orientation/consciousness: patient oriented x3 Neck Neck: Yes normal visual inspection Resp Effort & Inspection: normal respiratory effort Auscultation: clear to auscultation bilaterally, no crackles, no rales, no rhonc hi and no wheezes Cardio Jugular venous distension: no JVD Rate: regular rate Rhythm: regular rhythm Heart sounds: S1 normal heart sound present, S2 normal heart sound present, no murmurs and no rubs Neuro General: patient oriented x3 Extrem General: Yes normal to inspection and No no pedal edema Psych Appearance: grossly normal Mental Status: mental status grossly normal Speech and movement: Normal speech and movement present Office Procedures EKG Details: Today, read by me, SR, no acute ST/ T wave abn, rate 68, QTc 412ms [id number], Complete Assessment & Plan Assessment & Plan (1) Takotsubo cardiomyopathy: Code(s): I51.81 - Takotsubo syndrome Category: Medical Plan: History of takotsubo cardiomyopathy with normalization of EF. Last echocardiogram was done 03/06/2022 showing normal Bi V function. Echo prior to that on 11/08/2021 had shown EF 40-45%. He does report some sob at times, which he relates to asthma. On examination he has no clinical signs indicating d ecompensated heart failure. Blood pressure is on low side. Will have him continue on carvedilol 12.5 mg b.i.d. Will stop low dose Amlodipine. Will update echocardiogram and plan to call him with results. Cardiology office visit in 1 year, sooner if needed. (2) Dilated aortic root: Code(s): I77.810 - Thoracic aortic ectasia Category: Medical Plan: Echo from 11/08/2021 shows mild dilation of the sinus of Valsalva 4.5 cm, mild dilation of the ascending aorta 3.6 cm. Will be updating echo as above. (3) H/O cardiac catheterization: Comment: 2018, nonobstructive CAD, left main normal, lad less than 30%, left circumflex less than 30%, RCA less than 30% stenosis Code(s): Z98.890 - Other specified postprocedural states Category: Surgical (4) Coronary atherosclerosis: Code(s): I25.10 - Atherosclerotic heart disease of [place] coronary artery without angina pectoris Category: Medical Qualifiers: Coronary Disease-Associated Artery/Lesion type: [place] artery [place] vs. transplanted heart: [place] heart Associated angina: without angina Qualified Code(s): I25.10 - Atherosclerotic heart disease of [place] coronary artery without angina pectoris Plan: History of mild nonobstructive coronary artery disease. No reports of anginal sounding symptoms. Cardiac catheterization from 2018 as above. Signs and symptoms of angina reviewed. Continue aspirin 81 mg daily and high-dose atorvastatin, carvedilol. (5) Hyperlipidemia LDL goal <70: Code(s): E78.5 - Hyperlipidemia, unspecified Category: Medical Plan: Line [place] LDL goal less than 70. Labs done 06/28/23 shows LDL 61, AST 13, ALT 12. Continue atorvastatin. Plan Time spent on chart review, document, interview, assessment Orders: Orders CA echo transthoracic complete Today I51.81 - Takotsubo syndrome Medications: Discontinued amlodipine Discontinued Reason: Doctor's Order 2.5 mg PO QAM 60 tabs 11RF I10 - Essential (primary) hypertension Coding Level of Care Code Est Pt Level 4 (56141) Complex EM visit Add On G2211 Diagnoses Takotsubo cardiomyopathy I51.81 Dilated aortic root I77.810 H/O cardiac catheterization Z98.890 Atherosclerosis of [place] coronary artery of [place] heart without angina pectoris I25.10 Coronary Disease-Associated Artery/Lesion type: [place] artery [place] vs. transplanted heart: [place] heart Associated angina: without angina Hyperlipidemia LDL goal <70 E78.5 CPT Codes EKG - CPT: 47373-[id number], Complete ([id number]) Time Spent (min) 30
== END 2024-02-13 13:21 | disposition home or self-care (01) ==
PROVIDERS: PCP Student in an Organized Health Care Education/Training Program; Visit Provider Nurse Practitioner Family
DX: I51.81 Takotsubo syndrome (principal); I77.810 Thoracic aortic ectasia; Z98.890 Other specified postprocedural states; I25.10 Atherosclerotic heart disease of native coronary artery without angina pectoris; E78.5 Hyperlipidemia, unspecified
CPT/HCPCS: 93010; 99214; G2211

== ENCOUNTER → 2024-02-13 12:47 | Outpatient (BNVA) | payer OTHER, SELFPAY | PROVIDERS: PCP Student in an Organized Health Care Education/Training Program; Visit Provider Nurse Practitioner Family | DX: I51.81 Takotsubo syndrome (principal); I77.810 Thoracic aortic ectasia; I25.10 Atherosclerotic heart disease of native coronary artery without angina pectoris; I10 Essential (primary) hypertension; E78.5 Hyperlipidemia, unspecified; Z98.890 Other specified postprocedural states | CPT/HCPCS: 93005; 99212 ==

== ENCOUNTER 2024-02-26 09:48 | Outpatient (REF) | payer OTHER, SELFPAY ==
[2024-02-26 11:44] LABS: Estimated Average Glucose 229 mg/dL; Hemoglobin A1c % 9.6 % (<6.0); Total Hemoglobin (HGBA1C) 3603.3649 umol/L
== END 2024-02-26 09:49 | disposition home or self-care (01) ==
LOC: HO.HHCL 09:48
PROVIDERS: Visit Provider Student in an Organized Health Care Education/Training Program
DX: E11.40 Type 2 diabetes mellitus with diabetic neuropathy, unspecified (principal); Z79.4 Long term (current) use of insulin
CPT/HCPCS: 36415; 83036

== ENCOUNTER → 2024-03-11 15:08 | Outpatient (REF) | payer OTHER, SELFPAY ==
--- NOTE | 2024-03-11 15:10 | CA_ITS ---
Transthoracic Echocardiogram Patient (Last, First, Middle): Aravind Mosqueda, Gender: Male Date of : 1965 Age: 58 Procedure Date: 03/11/2024 Procedure Type: Transthoracic Echocardiogram Location: OP Height: 175.26 cm Weight: 63.5 kg BSA: 1.78 m2 Heart Rate: 71 bpm BP: 102 / 68 mmHg Senior Policy Analyst: SB Referring MD: Yamilet Villagran BRIDGE PAINTER HELPERToño Symptoms: I51.81 - Takotsubo syndrome Study Quality: Adequate ECG Rhythm: Sinus Conclusions: - The left ventricular systolic function is normal. The calculated ejection fraction is 60% by biplane method. - No obvious valvular pathology seen on this study. Findings Left Ventricle Normal left ventricular cavity size. The left ventricular systolic function is normal. The calculated ejection fraction is 60% by biplane method. There is no evidence of regional wall motion abnormalities. Evidence suggests grade I (mild) diastolic dysfunction. There is mild septal asymmetric hypertrophy. Right Ventricle Normal right ventricular cavity size and systolic function. Atria Both atria are normal in size. Aortic Valve There is a normal trileaflet aortic valve. There is no aortic valve stenosis. There is no aortic valve regurgitation. Mitral Valve The mitral valve appears normal. There is trace mitral valve regurgitation. There is no mitral valve stenosis. Pulmonic Valve The pulmonic valve is likely normal. Tricuspid Valve Normal tricuspid valve structure. There is trace tricuspid valve regurgitation. There is no evidence of pulmonary hypertension. Great Vessels The asc aorta is normal in size. Venous The inferior vena cava is normal in size and collapses greater than 50% with inspiration. Pericardium/Pleural There is no evidence of pericardial effusion. Prior Study Comparison No significant change compared to prior study dated: 03/16/2022. Recommendations, Care & Conclusions No obvious valvular pathology seen on this study. Measurements 2D Linear Measurements IVSd: 1.12 0.6-0.9/0.6-1.0 cm LVIDd: 4.40 3.9-5.3/4.2-5.9 cm LVIDd Index: 2.47 2.4-3.2/2.2-3.1 cm/m2 LVIDs: 2.72 2.0-3.6 cm LVPWd: 0.66 0.7-1.1 cm LA Diam: 3.50 2.7-3.8/3.0-4.0 cm LAIDs Index: 1.97 1.5-2.3 cm/m2 LV Mass: 156.52 67-162/88-224 g LV Mass Index: 87.93 43-95/49-115 g/m2 LVOT Diam: 2.50 3.0+(-)1.3 cm 2D Systolic Function EF 4C: 57.40 >55% EF 2C: 61.40 >55% EF BiP: 60.20 >55% Mitral Valve MV Pk E: 0.58 MV PK A: 0.67 MV Decel Time: 243.00 E/A: 0.90 E'Lateral: 5.98 E'Medial: 4.03 E/E' Med: 14.50 E/E' Lat: 9.70 PHT: 71.00 MVA PHT: 3.10 Decel Placer: 2.40 Aortic Valve AoV Pk Micheal: 1.05 AoV Pk Grad: 4.00 YESENIA: 4.52 LVOT LVOT Pk Micheal: 0.98 LVOT Mn Micheal: 0.69 LVOT VTI: 0.19 LVOT Pk Grad: 4.00 LVOT Mn Grad: 2.00 LVOT Diam: 2.50 LVOT Area: 4.91 Diastolic Function MV Pk E: 0.58 MV Pk A: 0.67 E/A: 0.90 E'Medial: 4.03 E/E' Med: 14.50 E' Laterial: 5.98 E/E' Lat: 9.70 Right Ventricle TAPSE (mm): 20.80 TVS' Micheal: 12.90 Tricuspid Valve TR Pk Micheal: 2.31 TR Pk Grad: 21.00 RA Press: 3.00 RVSP: 24.00 Great Vessels Aorta Sinus of Valsalva: 4.20 2.0-3.5 cm Ao Asc: 3.60 2.1-3.4 cm Pulmonary Valve PV Pk Micheal: 0.74 Peak PV Grad: 2.00 Updated in Other Vendor System with Status of Final Lane Hudson MD electronically signed on 03/11/2024 4:14:10 PM with status of Final
== END ==
LOC: HO.CARD 15:08
PROVIDERS: PCP Student in an Organized Health Care Education/Training Program; Visit Provider Nurse Practitioner Family
DX: I51.81 Takotsubo syndrome (principal)
CPT/HCPCS: 93306

== ENCOUNTER → 2024-03-11 15:10 | Outpatient (BNV) | payer OTHER, SELFPAY | PROVIDERS: PCP Student in an Organized Health Care Education/Training Program; Visit Provider Internal Medicine | DX: I42.2 Other hypertrophic cardiomyopathy (principal); I51.81 Takotsubo syndrome | CPT/HCPCS: 93306 ==

== ENCOUNTER 2024-03-30 11:11 | Outpatient (REF) | payer OTHER, SELFPAY ==
--- NOTE | ~2024-03-30 | MR_ITS ---
EXAMINATION: MR SHOULDER WITHOUT CONTRAST, RIGHT CLINICAL INFORMATION: Right shoulder pain and numbness. COMPARISON: Right shoulder MRI dated 08/31/2021. TECHNIQUE: MRI of the shoulder without contrast was performed on a high-field scanner. FINDINGS: ROTATOR CUFF: Mild supraspinatus and infraspinatus tendinosis, slightly increased. There is a new insertional intrasubstance partial tear at the junctional fibers measuring approximately 0.6 x 0.4 cm (AP x ML). No articular or bursal surface tearing. No muscle atrophy or fatty infiltration. BICEPS: Trace fluid within the proximal long head biceps tendon sheath, increased when compared to the prior examination and consistent with minimal tenosynovitis. CORACOACROMIAL ARCH: The undersurface of the acromion is attenuated, consistent with acromioplasty. Mild acromioclavicular osteoarthritis, unchanged. LABRUM/CAPSULE: No labral tear. Intact joint capsule. GLENOHUMERAL JOINT/MARROW: Mild articular cartilage signal heterogeneity with tiny marginal osteophytes, slightly progressed. MR/MR shoulder RT wo con IMPRESSION: 1. Mild supraspinatus and infraspinatus tendinosis, slightly increased when compared to the prior examination. New insertional intrasubstance partial tear at the junction of the supraspinatus and infraspinatus tendons measuring 0.6 x 0.4 cm (AP x ML). No articular or bursal surface tearing. 2. Minimal proximal long head biceps tenosynovitis, increased when compared to the prior examination. 3. Mild acromioclavicular osteoarthritis and prior acromioplasty. 4. Mild glenohumeral osteoarthritis, slightly progressed. Electronically signed by: Matthew Jones MD 04/11/2024 01:18 PM FREDDY
== END 2024-03-30 11:12 | disposition home or self-care (01) ==
LOC: HO.MRI 11:11
PROVIDERS: PCP Student in an Organized Health Care Education/Training Program; Visit Provider Orthopaedic Surgery
DX: M67.911 Unspecified disorder of synovium and tendon, right shoulder (principal)
CPT/HCPCS: 73221

== ENCOUNTER 2024-04-12 09:11 | Outpatient (REF) | payer OTHER, SELFPAY ==
--- OUTSIDE RECORDS SUMMARY | 2024-04-12 09:15 | XMS_ITS | Data Portability ---
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 I provided real-time medical direction via phone for this encounter, and was available for additional phone based assistance as needed. Patietn reports improving sxs of nonproductive cough. Rapid tests negative as documented by medic. AVSS And well appearing per medic. HAving relief from symptomatic treatment. PLan to continue current managment and follow up with care team. pallfather Not available 08/23/2022 17:10:06 Plan of Treatment Reminders Order Date Submit Date Provider Last Modified By Organization Details Last Modified Time Details Appointments None record ed. Lab None record ed. Referral None record ed. Procedures None record ed. Surgeries None record ed. Imaging None record ed. Medication Orders None record ed. Patient TargetsNo targets recorded. Patient InstructionsNo instructions recorded. Reason for Referral None Reported. Medical Equipment None Reported. Medications Name Sig Start Date Stop Date Status Note LastModified by Organization Details LastModified Time medbox status USE DIRECTED active Not Available Not Available No t Available amoxicillin 500 mg capsule TAKE ONE CAPSULE EVERY 8 HOURS UNTIL FINISHED active Not Available Not Available No t Available atorvastatin 80 mg tablet TAKE ONE TABLET AT BEDTIME active Not Available Not Available No t Available carvedilol 12.5 mg tablet TAKE ONE TABLET TWICE DAILY IN THE MORNING AND AT BEDTIME WITH FOOD active Not Available Not Available No t Available ammonium lactate 12 % lotion APPLY ON FEET ONCE DAILY active Not Available Not Available No t Available ibuprofen 800 mg tablet TAKE ONE TABLET THREE TIMES DAILY active Not Available Not Available No t Available amitriptylin e 75 mg tablet TAKE ONE TABLET BY MOUTH AT BEDTIME active Not Available Not Available No t Available famotidine 40 mg tablet TAKE ONE TABLET BY MOUTH AT BEDTIME active Not Available Not Available No t Available sertraline 100 mg tablet TAKE ONE TABLET EVERY MORNING WITH 50mg TABLET active Not Available Not Available No t Available aspirin 81 mg tablet,delay ed release TAKE ONE TABLET BY MOUTH EVERY MORNING active Not Available Not Available No t Available acetaminophe n ER 650 mg tablet,exten ded release TAKE TWO TABLETS BY MOUTH EVERY 8 HOURS NEEDED WITH WATER DO NOT BREAK, CRUSH, DISSOLVE OR CHEW active Not Available Not Available No t Available oxycodone-ac etaminophen 5 mg-325 mg tablet TAKE ONE TABLET BY MOUTH ONCE DAILY NEEDED FOR PAIN active Not Available Not Available No t Available magnesium oxide 400 mg (241.3 mg magnesium) tablet TAKE ONE TABLET EVERY MORNING active Not Available Not Available No t Available gabapentin 800 mg tablet TAKE ONE TABLET EVERY MORNING and TAKE TWO TABLETS EVERY DAY AT BEDTIME active Not Available Not Available N ot Available dicyclomine 20 mg tablet TAKE ONE TABLET in the morning, at noon, in the evening, and at bedtime active Not Available Not Available No t Available pantoprazole 40 mg tablet,delay ed release TAKE ONE TABLET IN THE MORNING AND EVENING active Not Available Not Available Not Available metformin 1,000 mg tablet TAKE ONE TABLET IN THE MORNING AND EVENING active Not Available Not Available Not Available mirtazapine 45 mg tablet TAKE ONE TABLET AT BEDTIME active Not Available Not Available No t Available diclofenac sodium 75 mg tablet,delay ed release TAKE ONE TABLET TWICE DAILY NEEDED FOR PAIN active Not Available Not Available No t Available oxybutynin chloride 5 mg tablet TAKE ONE TABLET TWICE DAILY IN THE MORNING AND AT BEDTIME active Not Available Not Available N ot Available sertraline 50 mg tablet TAKE ONE TABLET EVERY MORNING WITH 100mg TABLET active Not Available Not Available No t Available esomeprazole magnesium 20 mg capsule,julius yed release TAKE ONE CAPSULE EVERY MORNING BEFORE BREAKFAST active Not Available Not Available No t Available Alcohol Prep Pads USE THREE DAILY active Not Available Not Available No t Available cholecalcife rol (vitamin D3) 25 mcg (1,000 unit) tablet TAKE ONE TABLET EVERY MORNING active Not Available Not Available No t Available FreeStyle Lite Strips TEST BLOOD SUGAR UP TO THREE TIMES DAILY DIRECTED active Not Available Not Available No t Available blood pressure test kit-large cuff Check blood pressure on arm as directed active Not Available Not Available No t Available BD Ultra-Fine Carri Pen Needle 32 gauge x 5/32 USE TO INJECT insulin DAILY active Not Available Not Available No t Available Combivent Respimat 20 mcg-100 mcg/actuatio n solution for inhalation INHALE 1 PUFF 4 TIMES A DAY, MAY TAKE ADDITIONAL PUFFS NEEDED. (MAX 6 PUFFS PER DAY) active Not Available Not Available No t Available TRUEplus Lancets 33 gauge TEST BLOOD SUGAR UP TO THREE TIMES DAILY active Not Available Not Available No t Available Trulicity 1.5 mg/0.5 mL subcutaneous pen injector INJECT ONE PEN (=1.5MG) SUBCUTANEOU SLY ONCE A WEEK DIRECTED active Not Available Not Available No t Available Incruse Ellipta 62.5 mcg/actuatio n powder for inhalation INHALE 1 PUFF DAILY AT THE SAME TIME EACH DAY IN THE MORNING active Not Available Not Available No t Available Toujeo SoloStar U-300 Insulin 300 unit/mL (1.5 mL) subcutaneous pen INJECT SEVEN UNITS SUBCUTANEOU SLY DAILY active Not Available Not Available No t Available Vitals Date Recorded Respiratory rate Body temperature Heart rate Oxygen saturation Oxygen saturation in Arterial blood by Pulse oximetry Heart rate Body temperature Oxygen saturation Oxygen saturation in Arterial blood by Pulse oximetry Respiratory rate Body temperature Respiratory rate Heart rate Oxygen saturation Oxygen saturation in Arterial blood by Pulse oximetry Systolic blood pressure Diastolic blood pressure Systolic blood pressure Diastolic blood pressure Systolic blood pressure Diastolic blood pressure Provider Name and Address Organization Details Last Updated DateTime 3 20 /min 98.3 [degF] 88 /min 98 % 98 % 88 /min 98.3 [degF] 98 % 98 % 20 /min 98.3 [degF] 20 /min 88 /min 98 % 98 % 144 mm[Hg] 90 mm[Hg] 144 mm[Hg] 90 mm[Hg] 144 mm[Hg] 90 mm[Hg] Not Available [facility] - production 3 16:41:52 Social History None recorded. Functional Status None recorded. Mental Status None recorded. Family History Nothing Reported. Medical History No medical history recorded. Past Encounters Encounter ID Performer Location Encounter Start Date Encounter Closed Date Diagnosis/Indication Diagnosis SNOMED-CT Code Diagnosis ICD10 Code [id number] Theodore Yun MD [facility] [address] [place] [id number] 08/23/2022 13:24:48 08/25/2022 11:38:02 Cough 92263948 R05.9 Health Concerns Section Related Observation LastModified by Organization Detai ls LastModified Time None Recorded Concern Status LastModified by Organization Details LastModified Time None Recorded Advance Directives Directive None Recorded Payers Encounter Date Sequence Insurance Name Policy Number Policy Ford Covered Member ID Ford Member ID Guarantor Name 08/23/2022 1 [facility] - DOS PRIOR TO 2022 - DUAL ELIGIBLE (MEDICARE REPLACEMENT/ADV ANTAGE - HMO) Aravind Mosqueda [id number] Aravind Mosqueda Notes Date Note Type Note Provider Name and Address Organization Details Recorded Time 08/23/2022 text/html HPI: ALLERGIC TO : NAPROXEN Patient with history of cardiomyopathy, COPD., seizures Now with cough and congestion x 4 days with green phlegm. Febrile and headache Negative home covidtest three days. .................. .................. .................. .................. .................. .................. .................. ............... CRC Nursing Assessment: Comments: CRC RN did not require any additional information to process this visit. .................. .................. .................. .................. .................. .................. .................. ............... Forensics Analyst Note From Jory Yoon: Community Forensics Analyst Earlene Yoon SC6 dispatched to a [facility] for a 57 yom C/O a cough X4 days. Upon arrival, the pt was ambulatory, BUTLER X4, in no apparent distress. He stated he started to cough 4 days prior, and had clear sputum, and chest pain when coughing. He was negative for covid, and taking amoxicillin, ibuprofen, and tylenol for an oral infection. He stated he was using his maintenance inhaler and MDI 2X a day. He denied headache, dizziness, sore throat, N/V/D, SOB, CP while not coughing, abd pain. No urinary S/S, no pedal edema, lung sounds clear throughout. [facility] consulted. Pt was instructed to continue w/ symptom mgmt and monitor. Red flags discussed. .................. .................. .................. .................. .................. .................. .................. ............... Disposition: Fulfilled Theodore Yun MD [address] [facility],[address], [place], [phone], [employer] - [employer] 08/23/2022 17:10:22
[2024-04-12 14:42] LABS: Albumin Level 3.7 g/dL (3.5-5.0); Anion Gap 11 (12-20); Aspartate Amino Transferase 22 U/L (5-37); Bilirubin Direct 0.2 mg/dL (0.0-0.5); Bilirubin Total 0.3 mg/dL (0.0-1.0); Blood Urea Nitrogen 13 mg/dL (9-16); Calcium 8.8 mg/dL (8.4-10.2); Carbon Dioxide 30 mmol/L (22-29); Chloride 105 mmol/L (96-108); Cholesterol 98 mg/dL (<200); Estimated Glomerular Filt Rate > 60; Glucose Random 227 mg/dL (60-115); HDL Cholesterol 33 mg/dL (>40); LDL Cholesterol Calculated 55 mg/dL (<100); Sodium 141 mmol/L (135-145); Total Protein 6.2 g/dL (6.5-8.0); Triglycerides 54 mg/dL (<150)
[2024-04-12 15:01] LABS: Alanine Aminotransferase 11 U/L (0-40); Alkaline Phosphatase 71 U/L (39-117)
== END 2024-04-12 09:12 | disposition home or self-care (01) ==
LOC: HO.CHCLDS 09:11
PROVIDERS: Visit Provider Student in an Organized Health Care Education/Training Program
DX: E11.40 Type 2 diabetes mellitus with diabetic neuropathy, unspecified (principal); Z79.4 Long term (current) use of insulin
CPT/HCPCS: 36415; 80048; 80061; 80076

== ENCOUNTER 2024-06-03 13:38 | Outpatient (AMB) | payer OTHER, SELFPAY ==
--- NOTE | 2024-06-03 13:44 | MHC.OFFVIS ---
Vital Signs 06/03/24 13:45 Height 5 ft 9 in Weight 138 lb BMI 20.4 Intake Visit Reasons: OV- Right shoulder MRI review Intake Note: Aravind is a 59 year old right hand dominants male who presents today for a follow up of his right shoulder pain. Hx of Right SAD 12/15/21. He has history of injections and physical therapy that have not been helpful. IMPRESSION: 1. Mild supraspinatus and infraspinatus tendinosis, slightly increased when compared to the prior examination. New insertional intrasubstance partial tear at the junction of the supraspinatus and infraspinatus tendons measuring 0.6 x 0.4 cm (AP x ML). No articular or bursal surface tearing. 2. Minimal proximal long head biceps tenosynovitis, increased when compared to the prior examination. 3. Mild acromioclavicular osteoarthritis and prior acromioplasty. 4. Mild glenohumeral osteoarthritis, slightly progressed. Allergies naproxen [From NAPROSYN] Allergy (Mild, Verified 06/03/24 13:46) HIVES HPI HPI OV- Right shoulder MRI review: Details: Aravind is a 59 year old right hand dominants male who presents today for a follow up of his right shoulder pain. Hx of Right SAD 12/15/21. He has history of injections and physical therapy that have not been helpful. He continues to describe difficulty with overhead activity. He states the surgery was helpful for about a year but he is having worsening weakness with abduction. MRI was repeated and revealed increased tendinosis with partial-thickness tearing of the supraspinatus. [facility] Medical History Long-term insulin use in type 2 diabetes Diabetes type 2, uncontrolled Tobacco abuse Sleep apnea Myocardial infarction BPH (benign prostatic hyperplasia) Depression Thrombocytopenia Alcohol abuse Peripheral neuropathy COPD (chronic obstructive pulmonary disease) Seizures Essential hypertension Hyperlipidemia LDL goal <70 Type 2 diabetes mellitus with diabetic polyneuropathy Surgical History Hx of shoulder surgery History of esophagogastroduodenoscopy (EGD) H/O colonoscopy History of arthroscopic surgery of shoulder Hx of hernia repair Hx of pneumonectomy Hx of knee surgery Family History Father Cancer Diabetes Mother CVD (cardiovascular disease) Social History Household Members: Spouse Alcohol intake: never Patient Tobacco Use Status: Former Tobacco user Tobacco use type: Cigarette Years Smoked: 40 Current occupational status: unemployed Current occupation: Right Handed Physical Exam Vital Signs: BMI result Body Mass Index 20.4 Extrem Other: 45/90/130/HP 4/5 ED + H/N TTP bicipital groove Results Reviewed Results Reviewed: I personally reviewed the MR images. 1. Mild supraspinatus and infraspinatus tendinosis, slightly increased when compared to the prior examination. New insertional intrasubstance partial tear at the junction of the supraspinatus and infraspinatus tendons measuring 0.6 x 0.4 cm (AP x ML). 2. Minimal proximal long head biceps tenosynovitis, increased when compared to the prior examination. 3. Mild acromioclavicular osteoarthritis and prior acromioplasty. 4. Mild glenohumeral osteoarthritis, slightly progressed. Assessment & Plan Assessment & Plan (1) Dysfunction of right rotator cuff: Code(s): M67.911 - Unspecified disorder of synovium and tendon, right shoulder Category: Medical Plan: Is a 59-year-old gentleman with continued right shoulder pain and weakness. His MRI shows further deterioration of the superior rotator cuff. He tolerated surgery in the past and did well. He does have cardiomyopathy and diabetes and we will need clearance but, assuming he is cleared medically, I recommend right rotator cuff repair. He fared well initially after surgery but it was brief in his symptoms are associated with lifting and is exam is positive. I recommend surgery and discussed this with him. I discussed the risks, benefits and alternatives to surgery including, but not limited to, the risk of infection, re-injury, worsening symptoms, pain as well as medical complications associated with surgery. I answered his questions and he expressed understanding. We will proceed forward accordingly. Coding Level of Care Code Est Pt Level 4 (03796) Diagnoses Dysfunction of right rotator cuff M67.911
[2024-06-03 13:45] VITALS: BMI 20.4
--- OUTSIDE RECORDS SUMMARY | 2024-06-03 15:05 | XMS_ITS | Encounter Summary ---
Author Organization [employer] Address [address] [facility] [address] [place] [address] Care Team Providers Care Service Delivery Supervisor Name Role Phone Earlene Beck MD Primary Care Provider [phone] Reason for Visit * Reason Comments Med Refill Encounter Details Date Type Department Care Team ([facility] st Contact Info) Description 05/31/2024 Refill [facility] CHC MED & PEDS [address] [place], [place] [phone] Earlene Beck MD [address] [place] [address] Osteoarthritis of multiple joints, unspecified osteoarthritis type; Irritable bowel syndrome with diarrhea Social History Tobacco Use Types Packs/Day Years Used Date Smoking Tobacco: Former Cigarettes Passive Smoke Exposure: Past Alcohol Use Standard Drinks/Week Comments Not Currently 0 (1 standard drink = 0.6 oz pur e alcohol) Housing Stability Answer Date Recorded What is your housing situation today? I have gianni carbajal 02/13/[address] you li ve. Do you have problems with any of the following? None of the above 02/13/2023 Food Insecurity Answer Date Recorded Within the past 12 months, y ou worried that your food would run out before you got money to buy more: Never True 02/13/2023 Within the past 12 months,th e food you bought just didn't last and you didn't have enough money to get more: Never True Transportation Answer Date Recorded In the past 12 months, has l ack of transportation kept you from medical appts, meetings, work or from getting things needed for daily living? No 02/13/2023 Utilities Answer Date Recorded In the past 12 months, has t he electric, gas, oil or water [employer] threatened to shut off services in your home? No 02/13/2023 Sex and Gender Information Value Date Recorded Sex Assigned at Male 02/28/2022 10:15 AM EDT Legal Sex Male 10:15 AM EDT Gender Identity Male 02/28/2022 10:15 AM EDT Sexual Orientation Choose not to disclose 2021 10:15 AM EDT documented as of this encounter Plan of Treatment Not on file documented as of this encounter Visit Diagnoses Diagnosis Osteoarthritis of multiple joints, unspecified osteoarthritis type Irritable bowel syndrome with diarrhea Irritable bowel syndrome documented in this encounter Care Teams Service Delivery Supervisor Relationship Specialty Start Date End Date Earlene Beck MD [address] [place] [id number] PCP - General Family Medicine 02/26/20 documented as of this encounter
--- OUTSIDE RECORDS SUMMARY | 2024-06-03 15:05 | XMS_ITS | Encounter Summary ---
Author Organization [facility] Address [id number] [place] [id number] Care Team Providers Care Mule Operator Name Role Phone Earlene Beck MD Primary Care Provider Reason for Visit * Reason Comments Follow-up Diabetic foot care Encounter Details Date Type Department Care Team ([facility] st Contact Info) Description 05/30/2024 9:30 AM EST Office Visit Orthopedic Surgery - [place] [address] [phone] Oracio Smalls, DPM [address] [address] Dermatophytosis of nail (Primary Dx); Diabetic mononeuropathy simplex (CMS/HCC); Tinea pedis of both feet Social History Tobacco Use Types Packs/Day Years Used Date Smoking Tobacco: Never Assessed Sex and Gender Information Value Date Recorded Sex Assigned at Not on file Gender Identity Not on file Sexual Orientation Not on file Job Start Date Occupation Industry Not on file Not on file Not on file documented as of this encounter Last Filed Vital Signs Vital Sign Reading Time Taken Comments Blood Pressure - - Pulse - - Temperature - - Respiratory Rate - - Oxygen Saturation - - Inhaled Oxygen Concentration - - Weight 68.5 kg (151 lb) 05/30/2024 9:39 AM EST Height 175.3 cm (5' 9.02 ) 05/30/2024 9:39 AM ES T Body Mass Index 22.29 05/30/2024 9:39 AM EST documented in this encounter Ordered Prescriptions Prescription Sig Dispensed Refills Start Date End Da te ciclopirox (LOPROX) 0.77 % gel Apply topically 2 (two) times a day. 45 g 05/30/2024 08/28/2024 clotrimazole (LOTRIMIN) 1 % cream Apply topically 2 (two) times a day. 30 g 3 05/30/2024 06/29/2024 documented in this encounter Progress Notes * Oracio Smalls DPM - 05/30/2024 9:30 AM EST S Presents complaint numbness burning tingling to his feet states he has numbness burning since his feet states it is difficult for him to walk he has his nails are long and painful thickened and bother him he states he has tried topical medication is not significant improvement does not that his nails still bother him he would like to try different medications from a topical standpoint Last A1c 8.2 last PCP visit 12/25/2023 Dr Earlene Beck MD ROS: GENERAL: Pt denies nausea, fever, vomiting, chills, or shortness of breath. Pt in NAD. CARDIOLOGY: pt denies chest pain, palpitations LUNGS: pt denies shortness of breath MUSCULOSKELETAL: See HPI, otherwise no joint pain or swelling, back pain, or muscle pain. SKIN: see HPI, otherwise no lesions, rash or itching NEURO: No persistent headache, weakness or numbness The remainder of the review of systems is noncontributory PAST MEDICAL HISTORY: Patient Active Problem List Diagnosis Diabetic neuropathy, type II diabetes mellitus ([facility]) Long-term insulin use in type 2 diabetes ([facility]) Seizure ([facility]) COPD (chronic obstructive pulmonary disease) ([facility]) SOCIAL HISTORY: Social History Tobacco Use Smoking status: Not on file Smokeless tobacco: Not on file Substance Use Topics Alcohol use: Not on file ACTIVE MEDICATIONS: No outpatient medications have been marked as taking for the 05/30/24 encounter (Office Visit) with Oracio Smalls DPM. ALLERGIES: Allergies Allergen Reactions Naproxen PHYSICAL EXAM: Visit Vitals Ht 1.753 m (69.02 ) Wt 68.5 kg (151 lb) BMI 22.29 kg/m?? BSA 1.83 m?? PODIATRIC EXAMINATION: GENERAL: Patient appears well nourished, with NAD. VASCULAR: Dorsalis pedis pulses are 2/4 bilaterally and Posterior tibial pulses are 2/4 bilaterally. Capillary filling time within normal limits the digits. No pallor on elevation or rubor on dependency. Positive hair growth. No varicosities. Denies rest pain or claudication pain. NEUROLOGICAL: Sharp/dull sensation , protective sensation 8/10 with 5.07 semmes stoney bilaterally, vibratory sensation with tuning fork intact to the tibial tuberosity. ORTHOPEDIC: Good muscle strength 5/5 of all flexors and extensors. Dorsi flexion of ankle ,10 degrees, plantar flexion WNL. No muscle atrophy. DERMATOLOGICAL:. Toenails: Left Toenail(s) 1-5: Crumbling upon debridement, subungual debris, discoloration, dystrophy, elongation, mycotic appearance, onychomycosis, pain and thickening. Right Toenail(s) 1-5: Crumbling upon debridement, subungual debris, discoloration, dystrophy, elongation, mycotic appearance, onychomycosis, pain and thickening. Annular scaling bilateral feet moccasin distribution Skin thinning texture shiny appearance diffuse hyperpigmentation bilaterally pedal hair decreased BIOMECHANICS: Ankle ROM WNL, STJ ROM wnl, MTJ ROM wnl, 1st MPJ ROM wnl. IMAGING: IMPRESSION: 1. Dermatophytosis of nail 2. Diabetic mononeuropathy simplex (CMS/HCC) 3. Tinea pedis of both feet PLAN: Pt was seen and examined, history reviewed. Discussed with patient regarding proper glucose control, exercise, and diet. Explained to patient proper shoe gear, and importance of daily foot checks. neuritis and neuropathies were discussed and reviewed treatment modalities specific to topical anesthetics including lidocaine Voltaren gel and the treat modalities including capsaicin cream were discussed and reviewed I reviewed neuropathy and why it occurs in diabetics. I educated the patient on proper blood sugar control and the importance of an HgBA1c of less than 7.0%. I reviewed the signs and symptoms of neuropathy with the patient Ciclopirox prescribed Lotrimin prescribed Pt to return for another evaluation in 3 months. Oracio Smalls DPM documented in this encounter Plan of Treatment Upcoming Encounters Date Type Department Care Team (Late st Contact Info) Description 08/01/2024 1:00 PM EDT Office Visit Orthopedic Surgery - [place] [address] [phone] Oracio Smalls DPM [address] [address] documented as of this encounter Visit Diagnoses Diagnosis Dermatophytosis of nail- Primary Diabetic mononeuropathy simplex (CMS/HCC) Type II or unspecified type diabetes mellitus with neurological manifestations, not stated as uncontrolled Tinea pedis of both feet documented in this encounter Care Teams Mule Operator Relationship Specialty Start Date End Date Earlene Beck MD [address] [place] [id number] PCP - General 12/27/23 documented as of this encounter
--- OUTSIDE RECORDS SUMMARY | 2024-06-03 15:05 | XMS_ITS | Encounter Summary ---
Author Organization [employer] Address [address] [place] [address] [address] [place] [address] Care Team Providers Care Nursing Manager Name Role Phone Earlene Beck MD Primary Care Provider [phone] Reason for Visit * Reason Comments Med Refill Encounter Details Date Type Department Care Team ([facility] st Contact Info) Description 05/12/2022 Refill [facility] CHC MED & PEDS [address] [place], [place] [phone] Earlene Beck MD [address] [place] [address] Irritable bowel syndrome with diarrhea; Gastro-esophageal reflux disease without esophagitis Social History Tobacco Use Types Packs/Day Years [...] as of this encounter Visit Diagnoses Diagnosis Irritable bowel syndrome with diarrhea Irritable bowel syndrome Gastro-esophageal reflux disease without esophagitis documented in this encounter Care Teams Nursing Manager Relationship Specialty Start Date End Date Earlene Beck MD [address] [place] [phone] PCP - General Family Medicine 02/26/20 documented as of this encounter
--- OUTSIDE RECORDS SUMMARY | 2024-06-03 15:05 | XMS_ITS | Encounter Summary ---
Author Organization [employer] Address [address] [place] [address] Care Team Providers Care Hematology Oncology Consultant Name Role Phone Earlene Beck MD Primary Care Provider [phone] Reason for Visit * Reason Onset Date Comments Lab Orders 02/22/2024 Encounter Details Date Type Department Care Team ([facility] st Contact Info) Description 02/22/2024 Telephone [facility] MEDICINE [address] [place] [address] Earlene Beck MD [address] [place] [address] Lab Orders Social History Tobacco Use Types Packs/Day Years [...] t he electric, gas, oil or water company threatened to shut off services in your home? No 02/13/2023 Sex and Gender Information Value Date Recorded Sex Assigned at Male 02/28/2022 10:15 AM EDT Legal Sex Male 10:15 AM EDT Gender Identity Male 02/28/2022 10:15 AM EDT Sexual Orientation Choose not to disclose 2021 10:15 AM EDT documented as of this encounter Miscellaneous Notes * Telephone Encounter - Melissa Knutson - 02/22/2024 9:28 AM EDT Tc from pt requesting a lab test (HbA1c test) because he will be going into surgery due to one of his fingers giving him issues. Pt indicated injections are not working and needs lab [facility]SE[facility]. No furtherdetails discuss. documented in this encounter Plan of Treatment Not on file documented as of this encounter Visit Diagnoses Not on filedocumented in this encounter Care Teams Hematology Oncology Consultant Relationship Specialty Start Date End Date Earlene Beck MD [address] [place] [phone] PCP - General Family Medicine 02/26/20 documented as of this encounter
--- OUTSIDE RECORDS SUMMARY | 2024-06-03 15:05 | XMS_ITS | Clinical Summary ---
Author Organization [address] [facility] Address [address] [place] [address] Phone Care Team Providers Care Bridge Ironworker Helper Name Role Phone Earlene Beck MD Primary Care Provider [phone] Allergies Active Allergy Reactions Criticality Noted Date Comments Naproxen 03/25/2024 Medications Medication Sig Dispensed Refills Start Date End Date Status clotrimazole (LOTRIMIN) 1 % cream Apply topically 2 (two) times a day. 30 g 3 05/30/2024 06/29/2024 Active ciclopirox (LOPROX) 0.77 % gel Apply topically 2 (two) times a day. 45 g 05/30/2024 08/28/2024 Active Active Problems Problem Noted Date Diagnosed Date Diabetic neuropathy, type II diabetes mellitus 1 05/18/2023 Long-term insulin use in type 2 diabetes 024 Seizure 03/18/2024 COPD (chronic obstructive pulmonary disease) Encounters Date Type Department Care Team Description 05/30/2024 9:30 AM EST Office Visit Orthopedic [facility] [address] [phone] Oracio Smalls DPM Dermatophytosis of nail (Primary Dx); Diabetic mononeuropathy simplex (CMS/HCC); Tinea pedis of both feet 03/25/2024 2:15 PM EST Office Visit [facility] [address] [phone] Oracio Smalls DPM Diabetic mononeuropathy simplex (CMS/HCC) (Primary Dx); Dermatophytosis of nail; Pain in toe of right foot; Pain in toe of left foot from Last 3 Months Social History Tobacco Use Types Packs/Day Years Used Date Smoking Tobacco: Never Assessed Sex and Gender Information Value Date Recorded Sex Assigned at Not on file Gender Identity Not on file Sexual Orientation Not on file Job Start Date Occupation Industry Not on file Not on file Not on file Last Filed Vital Signs Vital Sign Reading Time Taken Comments Blood Pressure - - Pulse - - Temperature - - Respiratory Rate - - Oxygen Saturation - - Inhaled Oxygen Concentration - - Weight 68.5 kg (151 lb) 05/30/2024 9:39 AM EST Height 175.3 cm (5' 9.02 ) 05/30/2024 9:39 AM ES T Body Mass Index 22.29 05/30/2024 9:39 AM EST Plan of Treatment Upcoming Encounters Date Type Department Care Team (Late st Contact Info) Description 08/01/2024 1:00 PM EDT Office Visit Orthopedic Surgery - [place] [address] [phone] Oracio Smalls, DPM [address] [address] Health Maintenance Due Date Last Done Comments Diabetes: Annual Foot Exam 1975 Diabetes: Annual Retina Eye Exam 1975 Hepatitis A Vaccines (1 of 2 - Risk 2-dose series) 1984 Colorectal Cancer Screening: Colonoscopy 02/13/2024 Depression Screening 02/13/2024 HIV Screening 02/13/2024 Hepatitis C Screening 02/13/2024 Medicare Annual Wellness Visit 02/13/2024 Social Influencers of Health Screening 02/13/2024 Diabetes: Annual Urine Albumin-Creatinine Ratio (uACR) 03/19/2024 Diabetes: Blood Sugar Control Test (HGBA1C) 10/09/2024 04/10/2024, 02/26/2024 Diabetes: Annual GFR (Glomerular Filtration Rate) 04/12/2025 04/12/2024 Cholesterol Screening (Lipid Panel) 04/12/2029 04/12/2024, 06/28/2023 DTaP,Tdap,and Td Vaccines (5 - Td or Tdap) 02/25/2032 02/24/2022, 12/14/2010, 12/14/2010, Additional history exists RSV Immunization Patients 60+ Years Old (1 - 1-dose 75+ series) 2040 MMR Vaccines Aged Out 01/29/2018, 02/10/1998 No lo nger eligible based on patient's age to complete this topic Hepatitis B Vaccines Completed 09/12/2018, 01/29/2018, 01/01/2013 Zoster Vaccines Completed 04/11/2019, 02/08/2019 Influenza Vaccine Completed 01/11/2024, , 02/24/2022, Additional history exists COVID-19 Vaccine Completed 03/04/2024, 03/2021, 08/31/2020, Additional history exists Pneumococcal Vaccine: Pediatrics (0 to 5 Years) and At-Risk Patients (6 to 64 Years) Completed 04/11/2024, 01/12/2017, 01/21/2009, Additional history exists HIB Vaccines Aged Out No longer eligi ble based on patient's age to complete this topic HPV Vaccines Aged Out No longer eligi ble based on patient's age to complete this topic IPV Vaccines Aged Out No longer eligi ble based on patient's age to complete this topic Meningococcal ACWY Vaccine Aged Out N o longer eligible based on patient's age to complete this topic RSV Immunization Patients Under 20 months Aged Out No longer eligible based on patient's age to complete this topic Varicella Vaccines Aged Out No longer eligible based on patient's age to complete this topic Care Teams Bridge Ironworker Helper Relationship Specialty Start Date End Date Earlene Beck MD [address] [place] [phone] PCP - General 12/27/23
--- OUTSIDE RECORDS SUMMARY | 2024-06-03 15:05 | XMS_ITS | Clinical Summary ---
Author Organization [employer] Address [address] [place] [address] [address] [place] [address] Care Team Providers Care Dispatch Coordinator Name Role Phone Earlene Beck MD Primary Care Provider [phone] Allergies Active Allergy Reactions Criticality Noted Date Comments Naproxen 06/11/2013 Medications * This document contains information received from the source organization and may not represent a complete record from that organization. amitriptyline (Elavil) 75 MG tablet Take 75 mg by mouth at bedtime. 11/26/19 22 Active oxyCODONE-acetamin ophen (Percocet) 5-325 MG tablet TAKE ONE TABLET BY MOUTH ONCE DAILY NEEDED FOR PAIN 02/03/20 22 Active famotidine (Pepcid) 40 MG tabletIndications: Epigastric pain Take 1 tablet (40 mg) by mouth at bedtime. 90 tablet 1 05/24/19 23 Active acetaminophen (Tylenol 8 Hour) 650 MG ER tabletIndications: Osteoarthritis of multiple joints, unspecified osteoarthritis type TAKE TWO TABLETS BY MOUTH EVERY 8 HOURS NEEDED WITH WATER DO NOT BREAK, CRUSH, DISSOLVE OR CHEW 90 tablet 11 07/14/19 23 Active Umeclidinium [place] (Incruse Ellipta) 62.5 MCG/ACT aerosol powderIndications: Chronic obstructive pulmonary disease, unspecified COPD type (CMS/HCC) INHALE 1 PUFF DAILY AT THE SAME TIME EACH DAY IN THE MORNING 1 each 3 08/02/19 23 Active ammonium lactate (Lac-Hydrin) 12 % lotion APPLY ON FEET ONCE DAILY 226 g 11 09/02/19 23 Active Blood Glucose Monitoring Suppl ([facility] Lite) w/Device kit 10/06/19 23 Active Viberzi 75 MG tablet TAKE ONE TABLET TWICE DAILY WITH MEALS OR WITH FOOD 09/21/19 Active Blood Pressure kitIndications:Britni vated blood pressure reading 1 Units in the morning. 1 kit 11/01/19 Active dulaglutide (Trulicity) 3 MG/0.5ML solution pen-injector Inject 3 mg under the skin 1 (one) time per week. 4 each 2 11/01/19 Active Additional Information Patient not taking.Reported on 04/12/2024 Continuous Blood Gluc Shellfish Dredge Operator (FreeStyle Hetal 2 Waldo) deviceIndications: Type 2 diabetes mellitus with diabetic neuropathy, with long-term current use of insulin ([facility]) Use to monitor interstitial glucose 8 times a day and prn. 1 each 11/01/19 Active carvedilol (Coreg) 12.5 MG tablet TAKE ONE TABLET TWICE DAILY IN THE MORNING AND AT BEDTIME WITH FOOD 180 tablet 1 05/05/19 24 Active Aspirin Adult Low Strength 81 MG EC tablet TAKE ONE TABLET EVERY MORNING 90 tablet 1 05/05/19 24 Active Pentips 32G X 4 MM misc USE TO INJECT INSULIN DAILY 100 each 09/29/19 24 Active FREESTYLE LITE test stripIndications:T ype 2 diabetes mellitus with diabetic neuropathy, with long-term current use of insulin ([facility]) TEST BLOOD SUGAR UP TO THREE TIMES DAILY DIRECTED 100 strip 10/23/19 Active Easy Touch Lancets 33G/Twist miscIndications:Ty pe 2 diabetes mellitus with diabetic neuropathy, with long-term current use of insulin ([facility]) TEST BLOOD SUGAR THREE TIMES DAILY 100 each 10/23/19 24 Active Fluticasone Furoate-Vilanterol (Breo Ellipta) 100-25 MCG/ACT aerosol powder Inhale 25 mcg 2 times daily. 1 each 11/06/19 24 025 Active sertraline (Zoloft) 100 MG tablet TAKE ONE TABLET EVERY MORNING WITH 50 MG TABLET 30 tablet 12/25/19 24 Active mirtazapine (Remeron) 45 MG tablet TAKE ONE TABLET EVERY NIGHT AT BEDTIME 30 tablet 12/25/19 24 Active sertraline (Zoloft) 50 MG tablet TAKE ONE TABLET EVERY MORNING WITH 100 MG TABLET 30 tablet 12/25/19 24 Active atorvastatin (Lipitor) 80 MG tablet TAKE 1 TABLET EVERY NIGHT AT BEDTIME 30 tablet 5 12/25/19 24 Active cetirizine (ZyrTEC) 10 MG tablet TAKE ONE TABLET EVERY MORNING 30 tablet 5 12/25/19 24 Active oxybutynin (Ditropan) 5 MG tablet TAKE ONE TABLET TWICE DAILY IN THE MORNING AND AT BEDTIME 60 tablet 11 12/25/19 24 Active Tourika SoloStar 300 UNIT/ML injection INJECT 20 UNITS SUBCUTANEOUSLY AT BEDTIME 4.5 mL 3 12/25/19 24 Active Continuous Glucose Shellfish Dredge Operator (FreeStyle Hetal 2 Waldo) device Scan sensor every 8 hours 1 each 12/25/19 24 Active glucose blood (FreeStyle Precision Hardik Test) test strip Use to test blood sugar 3 times daily 100 each 12 12/25/19 24 025 Active Diclofenac Sodium 1 % gel APPLY 2 GRAM'S TO AFFECTED AREA(s) TWICE DAILY NEEDED 100 g 3 03/07/20 24 Active esomeprazole (NexIUM) [address] capsuleIndications :Gastroesophageal reflux disease without esophagitis TAKE ONE CAPSULE EVERY MORNING BEFORE BREAKFAST 90 capsule 1 03/13/20 24 Active metFORMIN (Glucophage) 1000 MG tabletIndications: Type 2 diabetes mellitus with diabetic polyneuropathy (CMS/HCC) TAKE ONE TABLET IN THE MORNING AND EVENING 180 tablet 1 03/13/20 24 Active Alcohol Swabs (Alcohol Prep) 70 % pads USE THREE DAILY 100 each 5 03/15/20 24 Active cholecalciferol VITAMIN D (Vitamin D-3) 50 MCG (1999) capsule TAKE ONE CAPSULE EVERY MORNING 90 capsule 3 04/05/20 24 Active Farxiga 5 MG TAKE ONE TABLET EVERY MORNING 30 tablet 11 04/08/20 24 Active gabapentin (Neurontin) 800 MG tabletIndications: Osteoarthritis of multiple joints, unspecified osteoarthritis type TAKE ONE TABLET EVERY MORNING and TAKE TWO TABLETS EVERY DAY AT BEDTIME 90 tablet 1 04/08/20 24 Active dicyclomine (Bentyl) 20 MG tabletIndications: Irritable bowel syndrome with diarrhea TAKE ONE TABLET in the morning, at noon, in the evening, and at bedtime 120 tablet 1 04/08/20 24 Active Continuous Glucose Sensor (FreeStyle Hetal 2 Sensor) misc USE DIRECTED AND CHANGE EVERY 14 DAYS 2 each 3 04/11/20 24 Active diclofenac (Voltaren) 75 MG EC tablet TAKE ONE TABLET TWICE DAILY NEEDED FOR PAIN 03/26/20 24 Active ipratropium-albute rol (Duo-Neb) 0.5-2.5 mg/3 mL nebulizer solution INHALE ONE AMPULE USING A NEBULIZER EVERY 4 TO 6 HOURS NEEDED FOR WHEEZING 03/26/20 24 Active Anoro Ellipta 62.5-25 MCG/ACT aerosol powder INHALE 1 PUFF ONCE DAILY. RINSE MOUTH AFTER USE 03/26/20 24 Active divalproex (Depakote) 500 MG EC tablet Take 500 mg by mouth. 02/09/20 12 Active amLODIPine (Norvasc) 2.5 MG tablet Take 2.5 mg by mouth in the morning. 12/28/19 24 Active Combivent Respimat 20-100 MCG/ACT inhalerIndications :Chronic obstructive pulmonary disease, unspecified COPD type (CMS/HCC) INHALE 1 PUFF 4 TIMES A DAY, MAY TAKE ADDITIONAL PUFFS NEEDED. (MAX 6 PUFFS PER DAY) 12 g 1 05/02/19 25 Active Active Problems Problem Noted Date Diagnosed Date Abdominal pain 10/31/2022 Assessment & Plan (10/31/2022 9:41 AM EDT): Advised patient to call to schedule an appointment with GI Dr. Elvi Darling. Hyperkalemia 10/31/2022 Assessment & Plan (10/31/2022 9:41 AM EDT): Patient seen in [facility] ED on 10/07/22 for abdominal pain with hyperkalemia and elevated eosinophilia indicated by labs. Will repeat labs to recheck levels. Elevated blood pressure reading 10/31/2022 Assessment & Plan (10/31/2022 9:41 AM EDT): Uncontrolled. Will send blood pressure cuff and encouraged consistent monitoring at home. Will scheduled nursing appointment to recheck blood pressure. Seizure 10/31/2022 Migraine 03/23/2022 Osteoarthritis of multiple joints 03/23/2022 Type 2 diabetes mellitus wit h diabetic neuropathy, with long-term current use of insulin 03/23/2022 Assessment & Plan (10/31/2022 9:40 AM EDT): Uncontrolled. Glucose elevated at time of visit with a reading of 317 mg/dL. At this point will increase trulicity from 1.5 mg/0.5 mL to 3 mg/0.5 mL and increase insulin from 10 units to 14 units. Advised patient to monitor glucose levels for x3 days straight. If readings are over 130 mg/dL increase by 3 units every 3 days. Will benefit from glucose sensor. 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 Hx of surgical procedure 03/23/2022 Overview (03/23/2022): Hx of operative procedure on shoulder noted in EHR in [facility] Type 2 diabetes mellitus without complication 12/26/19 18 10/04/2022 Encounters * This document contains information received from the source organization and may not represent a complete record from that organization. Date Type Department Care Team Description 05/31/2024 Refill [facility] [address] [place] [address] Earlene Beck MD Osteoarthritis of multiple joints, unspecified osteoarthritis type; Irritable bowel syndrome with diarrhea 05/02/2024 Refill [facility] [address] [place] [address] Earlene Beck MD Chronic obstructive pulmonary disease, unspecified COPD type ([facility]) 04/29/2024 Orders Only [facility] [address] [place] [address] Kat Andino MD 04/15/2024 Telephone [facility] MEDICINE [address] [place], [place] [phone] Mera Cordova, tunnel inspector 04/12/2024 2:30 PM EST Office Visit [facility] OPTOMETRY [address] [place] [address] Ralph, Clarisa, OD Diabetes type 2, no ocular involvement ([facility]/HCC) (Primary Dx); Chorioretinal scar, left eye; Early cataracts, bilateral; Punctal stenosis, acquired, left; Presbyopia 04/12/2024 Travel 04/12/2024 Telephone [facility] [address] [place] [address] Earlene Beck MD 04/11/2024 8:30 AM EST Office Visit [facility] [address] [place] [address] Earlene Beck MD Chronic obstructive pulmonary disease, unspecified COPD type (CMS/HCC) (Primary Dx); Type 2 diabetes mellitus with diabetic neuropathy, with long-term current use of insulin (CMS/HCC); Encounter for immunization; Polyneuropathy associated with underlying disease ([facility]/HCC) 04/11/2024 Travel 04/07/2024 Refill [facility] [address] [place] [address] Earlene Beck MD Osteoarthritis of multiple joints, unspecified osteoarthritis type; Irritable bowel syndrome with diarrhea 04/05/2024 Refill [facility] [address] [place] [address] Earlene Beck MD 03/30/2024 Orders Only [facility] External Provider, [facility] 03/26/2024 Travel 03/22/2024 Patient Outreach [facility] [address] [place] [address] Earlene Beck MD Pre-visit Planning ([facility] unable to reach [facility]) 03/14/2024 Refill [facility] [address] [place] [address] Earlene Beck MD 03/13/2024 Refill [facility] [address] [place] [address] Earlene Beck MD Gastroesophageal reflux disease without esophagitis; Type 2 diabetes mellitus with diabetic polyneuropathy ([facility]/HCC) 03/09/2024 Refill [facility] [address] [place] [address] Earlene Beck MD 03/06/2024 Refill [facility] [address] [facility] [place] [address] Earlene Beck MD from Last 3 Months Immunizations Name Administration Dates Next Due DTaP 12/14/2010 Hep B, adult 09/12/2018,01/29/2018,01/01/2013 Influenza injectable quadriv alent IIV4 with preservative 01/29/2018,01/19/2017,02/18/2015 Influenza injectable quadriv alent preservative free 02/08/2023,02/24/2022,01/20/2021,02/04,01/23/2019,05/12/2016 Influenza, IIV3, injectable 01/19/2011 Influenza, Split (incl. delvis fied surface antigen) 01/01/2013,03/02/2012 Influenza, seasonal, injecta ble, preservative free 01/11/2024 MMR 01/29/2018,02/10/1998 Moderna Covid-19 Vaccine 12+ 08/31/2020,07/09/19 21 Pfizer Covid-19 Vaccine 12+ 03/12/2021 Pneumococcal Conjugate PCV 20 04/11/2024 Pneumococcal Polysaccharide PPSV23 01/12/2017,,01/12/2009 TD (adult), 2 Lf tetanus tox oid, preservative free, adsorbed 02/10/1998 Tdap 02/24/2022,12/14/2010 Zoster, Recombinant 04/11/2019,02/08/2019 Family History Medical History Relation Name Comments Coronary artery disease Brother Seizures Brother Coronary artery disease Father Stroke Mother Relation Name Status Comments Brother Father Mother Social History Tobacco Use Types Packs/Day Years Used Date Smoking Tobacco: Former Cigarettes Passive Smoke Exposure: Past Tobacco Cessation:Counseling Given: Not Answered Alcohol Use Standard Drinks/Week Comments Not Currently [...] the past 12 months, has t he [employer], gas, oil or water [employer] threatened to shut off services in your home? No 02/13/2023 Sex and Gender Information Value Date Recorded Sex Assigned at Male 02/28/2022 10:15 AM EDT Legal Sex Male 10:15 AM EDT Gender Identity Male 02/28/2022 10:15 AM EDT Sexual Orientation Choose not to disclose 2021 10:15 AM EDT Last Filed Vital Signs Vital Sign Reading Time Taken Comments Blood Pressure 137/78 04/11/2024 8:51 AM EST Pulse 58 04/11/2024 8:51 AM EST Temperature 36.2 ??C (97.2 ??F) 04/11/2024 8:51 AM ES T Respiratory Rate 18 04/11/2024 8:51 AM EST Oxygen Saturation 96% 10/19/2023 9:14 AM EDT Inhaled Oxygen Concentration - - Weight 64.4 kg (142 lb) 04/11/2024 8:51 AM EST Height 175.3 cm (5' 9 ) 04/11/2024 8:51 AM EST Body Mass Index 20.97 04/11/2024 8:51 AM EST Plan of Treatment Health Maintenance Due Date Last Done Comments CT Colonography 1965 Depression Screening 1965 FIT DNA/Cologuard 1965 FIT 1965 FOBT 1965 HIV Screening 1965 Sigmoidoscopy 1965 Alcohol/Substance Use Screening 1977 Hepatitis C Screening 1983 Diabetes: Urine Protein Screening 1984 Hepatitis A Vaccines (1 of 2 - Risk 2-dose series) 1984 Diabetes: Foot Exam 09/01/2023 08/31/2022, SDOH Screening 06/21/2024 06/21/2023 Diabetes: Hemoglobin A1C 07/09/2024 024, 02/26/2024, 10/19/2023, Additional history exists Colonoscopy 11/28/2024 Colorectal Cancer Screening 11/28/2024 Lipid Panel 04/12/2025 04/12/2024, 06/02, 09/16/2022, Additional history exists Tobacco Screening 04/15/2025 04/15/2024 Eye Exam 04/12/2026 04/12/2024, 03/31, 04/12/2024, Additional history exists DTaP/Tdap/Td Vaccines (4 - Td or Tdap) 02/25/2032 02/24/2022, 12/14/2010, 12/14/2010, Additional history exists RSV Patients and Patients Aged 60 years or older (1 - 1-dose 75+ series) 2040 Hepatitis B Vaccines Completed 09/12/2018, 01/29/2018, 01/01/2013 Zoster Vaccines Completed 04/11/2019, 02/08/2019 Influenza Vaccine Completed 01/11/2024, , 02/24/2022, Additional history exists COVID-19 Vaccine Completed 03/04/2024, 03/2021, 08/31/2020, Additional history exists Pneumococcal Vaccine: 50+ Years Completed 04/11/2024, 01/12/2017, 01/21/2009, Additional history exists HIB Vaccines Aged Out No longer eligi ble based on patient's age to complete this topic HPV Vaccines Aged Out No longer eligi ble based on patient's age to complete this topic IPV Vaccines Aged Out No longer eligi ble based on patient's age to complete this topic Meningococcal Vaccine Aged Out No manju shanice eligible based on patient's age to complete this topic RSV under 20 months Aged Out No longe r eligible based on patient's age to complete this topic Rotavirus Vaccines Aged Out No longer eligible based on patient's age to complete this topic Procedures Procedure Name Priority Date/Time Associated Diagnosis Comments LIPID PANEL, STANDARD Routine 04/12/2024 9:12 AM EST Type 2 diabetes mellitus with diabetic neuropathy, with long-term current use of insulin (CMS/HCC) HEPATIC FUNCTION PANEL Routine 04/12/2024 9:12 AM EST Type 2 diabetes mellitus with diabetic neuropathy, with long-term current use of insulin (CMS/HCC) BASIC METABOLIC PANEL Routine 04/12/2024 9:12 AM EST Type 2 diabetes mellitus with diabetic neuropathy, with long-term current use of insulin (CMS/HCC) POCT GLUCOSE Routine 04/11/2024 8:54 AM EST Type 2 diabetes mellitus with diabetic neuropathy, with long-term current use of insulin (CMS/HCC) HEMOGLOBIN A1C Routine 04/10/2024 9:26 AM EST MR SHOULDER WO CONTRAST RIGHT Routine 03/30/2024 11:09 AM EST from Last 3 Months Results * (ABNORMAL) Hepatic Function Panel (04/12/2024 9:12 AM EST) Bilirubin, Total 0.3 0.0 - 1.0 mg/dL [facility] Bilirubin, Direct 0.2 0.0 - 0.5 mg/dL [facility] Aspartate Amino Transferase 22 5 - 37 U/L [facility] Alanine Aminotransferase 11 0 - 40 U/L [facility] Total Protein 6.2(L) 6.5 - 8.0 g/dL [facility] Albumin Level 3.7 3.5 - 5.0 g/dL [facility] Alkaline Phosphatase 71 39 - 117 U/L [facility] Blood Venous blood specimen / Unknown 04/12/2024 9:12 AM EST 04/12/2024 2:18 PM EST us Earlene Beck MD LAB BLOOD ORDERABLES Final Resul t [facility] [address] [place] [address] [phone] * (ABNORMAL) Lipid Panel, Standard (04/12/2024 9:12 AM EST) Triglycerides 54 <150 mg/dL [facility] Comment:Desirable Triglyceri de: less than 150 mg/dLBorderline High Triglyceride 150-199 mg/dLHigh Triglyceride: 200-499 mg/dLVery High Triglyceride: greater than or equal to 5OO mg/dL Cholesterol 98 <200 mg/dL [facility] Comment:Desirable Cholestero l: less than 200 mg/dLBorderline High Cholesterol: 200-239 mg/dLHigh Cholesterol: greater than 239 mg/dL LDL Cholesterol Calculated 55 <100 mg/dL [facility] Comment:Desirable LDL: less than 100 mg/dLNear Optimal/Above Optimal LDL: 110- 129 mg/dLBorderline High LDL: 130-159 mg/dLHigh LDL: 160-189 mg/dLVery High LDL: greater than or equal to 190 mg/dL HDL Cholesterol 33(L) >40 mg/dL [facility] Comment:Desirable HDL: great er than 40 mg/dL Note: This HDL assay may give artificially low results in patients with liver disease. Blood Venous blood specimen / Unknown 04/12/2024 9:12 AM EST 04/12/2024 2:18 PM EST us Earlene Beck MD LAB BLOOD ORDERABLES Final Resul t [facility] [address] [place] [phone] * (ABNORMAL) Basic Metabolic Panel (04/12/2024 9:12 AM EST) Sodium 141 135 - 145 mmol/L [facility] Potassium 5.0 3.3 - 5.1 mmol/L [facility] Chloride 105 96 - 108 mmol/L [facility] Carbon Dioxide 30(H) 22 - 29 mmol/L [facility] Anion Gap 11(L) 12 - 20 [facility] Urea Nitrogen (BUN) 13 9 - 16 mg/dL [facility] Creatinine, Serum 0.99 0.5 - 1.4 mg/dL [facility] Estimated Glomerular Filt Rate >60 [facility] Comment:Chronic Kidney Disea se: Estimated GFR < 60 mL/min/[id number] Kidney Disease: Estimated GFR < 15 mL/min/1.73m2 Glucose 227(H) 60 - 115 mg/dL [facility] Calcium 8.8 8.4 - 10.2 mg/dL [facility] Blood Venous blood specimen / Unknown 04/12/2024 9:12 AM EST 04/12/2024 2:18 PM EST Earlene Beck MD LAB BLOOD ORDERABLES Final Resul t [facility] [address] [place] [phone] * (ABNORMAL) POCT Glucose (04/11/2024 8:54 AM EST) Glucose Blood, POC 399(A) 60 - 200 mg/dL QC Media Lot # [id number] Lot# Expiration Date Blood Capillary blood specimen / Unknown 04/11/2024 8:54 AM EST Earlene Beck MD POINT OF CARE TEST ENTER/EDIT OR DERABLES Final Result * Hemoglobin A1c (04/10/2024 9:26 AM EST) Blood Venous blood specimen / Unknown Historical Provider LAB BLOOD ORDERABLES Yasmeen l Result * MR Shoulder w/o Contrast Right (03/30/2024 11:09 AM EST) Anatomical Region Laterality Modality Upper Extremities, Shoulder Right Magn etic Resonance 03/30/2024 11:0 9 AM EST Narrative 04/11/2024 1:20 PM EST ? [facility] [facility] ?[address] ?[place] [address] ? Magnetic Resonance Report ? Signed ? Patient: Mosqueda,Aravind ?MR#: [id number] ?? 906 ? : 1965 ?Acct:[id number] ? Age/Sex: 58 / M ?ADM Date: 03/30/24 ? Loc: HO.MRI ? Attending Dr: Tomy Vee MD ? Ordering Physician: Tomy Vee MD ?? Date of Service: 03/30/24 ?? Procedure(s): MR shoulder RT wo con ?? Accession Number(s): [id number] ? cc: Tomy Vee MD; Earlene Beck MD ? EXAMINATION: ?? MR SHOULDER WITHOUT CONTRAST, RIGHT ? CLINICAL INFORMATION: ?? Right shoulder pain and numbness. ? COMPARISON: ?? Right shoulder MRI dated 08/31/2021. ? TECHNIQUE: ?? MRI of the shoulder without contrast was performed on a high-field ?? scanner. ? FINDINGS: ? ROTATOR CUFF: Mild supraspinatus and infraspinatus tendinosis, slightly ?? increased. There is a new insertional intrasubstance partial tear at ?? the junctional fibers measuring approximately 0.6 x 0.4 cm (AP x ML). ?? No articular or bursal surface tearing. No muscle atrophy or fatty ?? infiltration. ? BICEPS: Trace fluid within the proximal long head biceps tendon sheath, ?? increased when compared to the prior examination and consistent with ?? minimal tenosynovitis. ? CORACOACROMIAL ARCH: The undersurface of the acromion is attenuated, ?? consistent with acromioplasty. Mild acromioclavicular osteoarthritis, ?? unchanged. ? LABRUM/CAPSULE: No labral tear. Intact joint capsule. ? GLENOHUMERAL JOINT/MARROW: Mild articular cartilage signal ?? heterogeneity with tiny marginal osteophytes, slightly progressed. ? MR/MR shoulder RT wo con ?? IMPRESSION: ?? 1. Mild supraspinatus and infraspinatus tendinosis, slightly increased ?? when compared to the prior examination. New insertional intrasubstance ?? partial tear at the junction of the supraspinatus and infraspinatus ?? tendons measuring 0.6 x 0.4 cm (AP x ML). No articular or bursal ?? surface tearing. ? 2. Minimal proximal long head biceps tenosynovitis, increased when ?? compared to the prior examination. ? 3. Mild acromioclavicular osteoarthritis and prior acromioplasty. ? 4. Mild glenohumeral osteoarthritis, slightly progressed. ? Electronically signed by: ??Matthew Jones MD ??04/11/2024 01:18 PM EST ?? RP ? Dictated By: ?Matthew Jones MD ? Signed By: ?<Electronically signed by Matthew Jones MD in OV> ?04/11/24 1318 ? DD/ 1109 ? TD/TT: 03/30/24 1137 ? Hat Lining Blocker: SR ? Procedure Note Donotjose luisinterpreter, Image - 04/12/2024 [place] [id number] Magnetic Resonance Report Signed Patient: Salvatore Mosqueda#: [id number] 906 : 1965Acct:[id number] Age/Sex: 58 / MADM Date: 03/30/24 Loc: HO.MRI Attending Dr: Tomy Vee MD Ordering Physician: Tomy Vee MD Date of Service: 03/30/24 Procedure(s): MR shoulder RT wo con Accession Number(s): [id number] cc: Tomy Vee MD; Earlene Beck MD EXAMINATION: MR SHOULDER WITHOUT CONTRAST, RIGHT CLINICAL INFORMATION: Right shoulder pain and numbness. COMPARISON: Right shoulder MRI dated 08/31/2021. TECHNIQUE: MRI of the shoulder without contrast was performed on a high-field scanner. FINDINGS: ROTATOR CUFF: Mild supraspinatus and infraspinatus tendinosis, slightly increased. There is a new insertional intrasubstance partial tear at the junctional fibers measuring approximately 0.6 x 0.4 cm (AP x ML). No articular or bursal surface tearing. No muscle atrophy or fatty infiltration. BICEPS: Trace fluid within the proximal long head biceps tendon sheath, increased when compared to the prior examination and consistent with minimal tenosynovitis. CORACOACROMIAL ARCH: The undersurface of the acromion is attenuated, consistent with acromioplasty. Mild acromioclavicular osteoarthritis, unchanged. LABRUM/CAPSULE: No labral tear. Intact joint capsule. GLENOHUMERAL JOINT/MARROW: Mild articular cartilage signal heterogeneity with tiny marginal osteophytes, slightly progressed. MR/MR shoulder RT wo con IMPRESSION: 1. Mild supraspinatus and infraspinatus tendinosis, slightly increased when compared to the prior examination. New insertional intrasubstance partial tear at the junction of the supraspinatus and infraspinatus tendons measuring 0.6 x 0.4 cm (AP x ML). No articular or bursal surface tearing. 2. Minimal proximal long head biceps tenosynovitis, increased when compared to the prior examination. 3. Mild acromioclavicular osteoarthritis and prior acromioplasty. 4. Mild glenohumeral osteoarthritis, slightly progressed. Electronically signed by: Matthew Jones MD 04/11/2024 01:18 PM [facility] [place]ict[place] By: Matthew Jones MD Signed By: <Electronically signed by Matthew Jones MD in OV> 04/11/24 1318 DD/ 1109 TD/TT: 03/30/24 1137 Hat Lining Blocker: [facility] External Provider IMG MRI PROCEDURES Edited Result - Final from Last 3 Months Insurance - [employer] Care Teams Dispatch Coordinator Relationship Specialty Start Date End Date Earlene Beck MD [address] [place] [id number] PCP - General Family Medicine 02/26/20
--- OUTSIDE RECORDS SUMMARY | 2024-06-03 15:05 | XMS_ITS | Encounter Summary ---
Author Organization [employer] Address [address] [place] [address] 7t [place] [address] Care Team Providers Care Mobile Application Architect Name Role Phone Earlene Beck MD Primary Care Provider [phone] Reason for Visit * Reason Comments Med Refill Encounter Details Date Type Department Care Team (Late st Contact Info) Description 05/12/2022 Refill [facility] CHC MED & PEDS [address] [place], [place] [phone] Earlene Beck MD [address] [place] [address] Irritable bowel syndrome with diarrhea; Type 2 diabetes mellitus without complications (CMS/HCC) Social History Tobacco Use Types Packs/Day Years [...] bowel syndrome with diarrhea Irritable bowel syndrome Type 2 diabetes mellitus without complications (CMS/HCC) documented in this encounter Care Teams Mobile Application Architect Relationship Specialty Start Date End Date Earlene Beck MD [address] [place] [phone] PCP - General Family Medicine 02/26/20 documented as of this encounter
--- OUTSIDE RECORDS SUMMARY | 2024-06-03 15:05 | XMS_ITS | Encounter Summary ---
Author Organization [employer] Address [address] [place] [address] 7 [place] [address] Care Team Providers Care Core Oven Tender Name Role Phone Earlene Beck MD Primary Care Provider [phone] Reason for Visit * Reason Comments Med Refill Encounter Details Date Type Department Care Team (Late st Contact Info) Description 01/07/2023 Refill [facility] CHC MED & PEDS [address] [place], [place] [phone] Marie Reeves MD [address] [place] [address] Osteoarthritis of multiple joints, unspecified osteoarthritis type Social History Tobacco Use Types Packs/Day Years Used Date Smoking Tobacco: Former Cigarettes Passive Smoke Exposure: Past Alcohol Use Standard Drinks/Week Comments Not Currently 0 (1 standard drink = 0.6 oz pur e alcohol) Sex and Gender Information Value Date Recorded [...] Osteoarthritis of multiple joints, unspecified osteoarthritis type documented in this encounter Care Teams Core Oven Tender Relationship Specialty Start Date End Date Earlene Beck MD [address] [place] [address] PCP - General Family Medicine 02/26/20 documented as of this encounter"
--- OUTSIDE RECORDS SUMMARY | 2024-06-03 15:06 | XMS_ITS | Encounter Summary ---
Author Organization [employer] [facility] Address [address] [facility] 7t [place] [address] Care Team Providers Care Plastic Extruding Machine Operator Name Role Phone Earlene Beck MD Primary Care Provider [phone] Encounter Details Date Type Department Care Team (Latest Contact Info) Description 11/09/2018 Abstract [facility] CONVERSIONS Dental, Provider, DDS Social History Tobacco Use Types Packs/Day Years [...] on filedocumented in this encounter Care Teams Plastic Extruding Machine Operator Relationship Specialty Start Date End Date Earleen Beck MD [address] [place] [address] PCP - General Family Medicine 02/26/20 documented as of this encounter
--- OUTSIDE RECORDS SUMMARY | 2024-06-03 15:06 | XMS_ITS | Encounter Summary ---
Author Organization [facility] [facility] Address [address] [employer] [address] 7t [place] [address] Care Team Providers Care Assistant Statistician Name Role Phone Earlene Beck MD Primary Care Provider [phone] Encounter Details Date Type Department Care Team (Latest Contact Info) Description 06/08/2020 Abstract [facility] CONVERSIONS Dental, Provider, DDS Social History Tobacco [...] on filedocumented in this encounter Care Teams Assistant Statistician Relationship Specialty Start Date End Date Earlene Beck MD [address] [place] [address] PCP - General Family Medicine 02/26/20 documented as of this encounter
--- OUTSIDE RECORDS SUMMARY | 2024-06-03 15:06 | XMS_ITS | Encounter Summary ---
Author Organization [email or web address] Address [address] [facility] 7t [place] [address] Care Team Providers Care Grades 1 Through 6 Teacher Name Role Phone Earlene Beck MD Primary Care Provider [phone] Reason for Visit * Reason Comments Med Refill Encounter Details Date Type Department Care Team ([facility] st Contact Info) Description 01/04/2024 Refill [facility] CHC MED & PEDS [address] [place], [place] [phone] Emelina Carmona MD [address] [place] [address] Social History Tobacco Use Types Packs/Day Years [...] on filedocumented in this encounter Care Teams Grades 1 Through 6 Teacher Relationship Specialty Start Date End Date Earlene Beck MD [address] [place] [address] PCP - General Family Medicine 02/26/20 documented as of this encounter
--- OUTSIDE RECORDS SUMMARY | 2024-06-03 15:06 | XMS_ITS | Data Portability ---
Author Organization [employer] Address [address] [place] [phone] Care Team Providers Care Hydrochloric Area Supervisor Name Role Phone [facility] Referring Provider [facility] Referring Provider [phone] Assessment Encounter Date Assessment Date Assessment LastModified by Organization Details LastModified Time 08/23/2022 08/23/2022 I have reviewed and agree with the Assessment and Plan as documented by the Credit Report Checker. I provided real-time medical direction via phone [...] Diagnosis/Indication Diagnosis SNOMED-CT Code Diagnosis ICD10 Code Diagnosis Note [id number] Theodore Yun MD Main - [facility] [address] [place] [phone] 08/23/2022 13:24:48 08/25/2022 11:38:02 Cough [id number] R05.9 Health Concerns Section Related Observation LastModified by Organization Detai ls LastModified Time None Recorded Concern Status LastModified by Organization Details LastModified Time None Recorded Advance Directives Directive None Recorded Payers Encounter Date Sequence Insurance Name Policy Number Policy Ford Covered Member ID Ford Member ID Guarantor Name 08/23/2022 1 [facility] - DOS PRIOR TO 2022 - DUAL ELIGIBLE (MEDICARE REPLACEMENT/ADV ANTAGE - HMO) Aravind Mosqueda [id number] Aravind Mosqueda Notes Date Note Type Note [...] .................. .................. .................. .................. .................. .................. ............... Credit Report Checker Note From Jory Yoon: Community Credit Report Checker Earlene Yoon SC6 dispatched to a [facility] for a 57 yom C/O a cough [...] no pedal edema, lung sounds clear throughout. C consulted. Pt was instructed to continue w/ symptom mgmt and monitor. Red flags discussed. .................. .................. .................. .................. .................. .................. .................. ............... Disposition: Fulfilled Theodore Yun MD [address] [facility], [place], [address], Yu [place]ong - [place] 08/23/2022 17:10:22
--- OUTSIDE RECORDS SUMMARY | 2024-06-03 15:06 | XMS_ITS | Encounter Summary ---
Author Organization [employer] Address [address] [facility] [address] [facility] [address] 7t [place] [address] Care Team Providers Care Ammonium Nitrate Neutralizer Name Role Phone Earlene Beck MD Primary Care Provider [phone] Encounter Details Date Type Department Care Team ([facility] st Contact Info) Description 04/29/2024 Orders Only [facility] CHC MED & PEDS [address] [place] [address] ProviderKat MD Social History Tobacco Use Types Packs/Day Years Used Date Smoking Tobacco: Former Cigarettes Passive Smoke Exposure: Past Alcohol Use Standard Drinks/Week Comments Not Currently 0 (1 standard drink = 0.6 oz pur e alcohol) Housing Stability Answer Date Recorded What is your housing situation today? I have gianniguilherme carbajal 02/13/[address] you [...] on file documented as of this encounter Procedures Procedure Name Priority Date/Time Associated Diagnosis Comments HEMOGLOBIN A1C Routine 04/10/2024 9:26 AM EST documented in this encounter Results * Hemoglobin A1c (04/10/2024 9:26 AM EST) Blood Venous blood specimen / Unknown us Historical Provider LAB BLOOD ORDERABLES Yasmeen l Result documented in this encounter Visit Diagnoses Not on filedocumented in this encounter Care Teams Ammonium Nitrate Neutralizer Relationship Specialty Start Date End Date Earlene Beck MD [address] [place] [address] PCP - General Family Medicine 02/26/20 documented as of this encounter
--- OUTSIDE RECORDS SUMMARY | 2024-06-03 15:06 | XMS_ITS | Encounter Summary ---
Author Organization [employer] Address [address] [place] [address] 7t [place] [address] Care Team Providers Care Fur Liner Name Role Phone Earlene Beck MD Primary Care Provider [phone] Reason for Visit * Reason Comments Med Refill Encounter Details Date Type Department Care Team ([facility] st Contact Info) Description 01/10/2023 Refill [facility] CHC MED & PEDS [address] [place], [place] [phone] Marie Reeves MD [address] [place] [address] Irritable bowel syndrome with diarrhea Social History [...] syndrome documented in this encounter Care Teams Fur Liner Relationship Specialty Start Date End Date Earlene Beck MD [address] [place] [address] PCP - General Family Medicine 02/26/20 documented as of this encounter
--- OUTSIDE RECORDS SUMMARY | 2024-06-03 15:06 | XMS_ITS | Encounter Summary ---
Author Organization [facility] Address [address] [facility] 7t [place] [address] Care Team Providers Care Military Education Coordinator Name Role Phone Earlene Beck MD Primary Care Provider [phone] Encounter Details Date Type Department Care Team (Latest Contact Info) Description 05/09/2018 Abstract [facility] CONVERSIONS Dental, Provider, DDS Social [...] on filedocumented in this encounter Care Teams Military Education Coordinator Relationship Specialty Start Date End Date Earlene Beck MD [address] [place] [address] PCP - General Family Medicine 02/26/20 documented as of this encounter
== END 2024-06-03 14:18 | disposition home or self-care (01) ==
PROVIDERS: PCP Student in an Organized Health Care Education/Training Program; Visit Provider Orthopaedic Surgery
DX: M67.911 Unspecified disorder of synovium and tendon, right shoulder (principal)
CPT/HCPCS: 99214

== ENCOUNTER → 2024-06-03 13:38 | Outpatient (BNVA) | payer OTHER, SELFPAY | PROVIDERS: PCP Student in an Organized Health Care Education/Training Program; Visit Provider Orthopaedic Surgery | DX: M67.911 Unspecified disorder of synovium and tendon, right shoulder (principal) | CPT/HCPCS: 99212 ==

== ENCOUNTER 2024-06-05 12:35 | Outpatient (AMB) | payer OTHER, SELFPAY ==
--- NOTE | 2024-06-05 12:41 | A.OFFVIS_ITS ---
Vital Signs 06/05/24 12:47 Height 5 ft 9 in Weight 139 lb BMI 20.5 Intake Visit Reasons: Pre op lt mf trig rel 07/31/24 Intake Note: Aravind 59 yr old male presents today for a pre op visit for his left Middle finger trigger release. Constants have been signed. Allergies naproxen [From NAPROSYN] Allergy (Mild, Verified 06/05/24 12:48) HIVES HPI HPI Pre op lt mf trig rel 07/31/24: Details: Aravind is a 58 year old right hand dominant Diabetic Polish speaking man who returns to discuss his left middle trigger finger They complains of painful locking & catching of his left middle finger. They says the pain is severe enough that they cannot sleep . He denies any numbness today in clinic and says his sensation is normal today. They have a Hx of DM, HI, COPD, smoking, ETOH abuse, & Depression. He says he has greatly reduced his HgA1c in order to proceed with surgery. ON LICENSE OF [facility] Medical History Long-term insulin use in type 2 diabetes Diabetes type 2, uncontrolled Tobacco abuse Sleep apnea Myocardial infarction BPH (benign prostatic hyperplasia) Depression Thrombocytopenia Alcohol abuse Peripheral neuropathy COPD (chronic obstructive pulmonary disease) Seizures Essential hypertension Hyperlipidemia LDL goal <70 Type 2 diabetes mellitus with diabetic polyneuropathy Surgical History Hx of shoulder surgery History of esophagogastroduodenoscopy (EGD) H/O colonoscopy History of arthroscopic surgery of shoulder Hx of hernia repair Hx of pneumonectomy Hx of knee surgery Family History Father Cancer Diabetes Mother CVD (cardiovascular disease) Social History Household Members: Spouse Alcohol intake: never Patient Tobacco Use Status: Former Tobacco user Tobacco use type: Cigarette Years Smoked: 40 Current occupational status: unemployed Current occupation: Right Handed Physical Exam Vital Signs: BMI result Body Mass Index 20.5 Extrem Other: Evaluation of Left Upper Extremity: The patient is alert, oriented, and in no acute distress Neuro: Median, Ulnar, Radial nerves motor and sensory intact and sensation is normal to the tips of all digits No thenar or intrinsic wasting Good APB muscle belly firing and good finger cross Vascular: Cap refill brisk ROM: He can make a fist and extend all his digits Visible and palpable locking and catching of the middle finger Tender over the a1 johnna of the middle finger Assessment & Plan Assessment & Plan (1) Trigger finger, left middle finger: Code(s): M65.332 - Trigger finger, left middle finger Category: Medical (2) Diabetes mellitus: Code(s): E11.9 - Type 2 diabetes mellitus without complications Category: Medical Plan Assessment & Plan: 1. Left middle finger trigger finger, S/P injection Date of injection: 01/03/24 I educated them about this condition I discussed operative and non-operative treatment options The patient would like to proceed with surgery The risks and benefits of operative treatment were discussed with the patient and the patient wishes to proceed with surgery. These risks include, but are not limited to risk of damage to blood vessels, nerves, tendons, infection, recurrence, incomplete relief of preoperative symptoms, persistent pain, possible need for further surgery and the risks associated with regional blocks and anesthesia. The plan is to take the patient to the operating room sometime on 07/08/24 for the following procedures: 1. Left middle finger trigger release, under local All of the preoperative paperwork including the consent was reviewed today. All the patient's questions were answered. The patient understands that they will be contacted by our ground products director soon to schedule this procedure. He would like to be placed on the cancellation list for a sooner DOS if possible. He denies blood thinners, asthma, kidney issues he is a Diabetic. He says his most recent HgA1c was ~4.6% sometime in the last 6 weeks. The last hgA1c was on record as 9.6% on 02/25/25 He has a Hx of HI, COPD, ETOH abuse, and is a smoker. Scribed for Shireen Esquivel MD by Juan Khanna, medical clerical assistant, on 06/05/24 at 1:00 PM, EST. Coding Level of Care Code Est Pt Level 4 (49219) Diagnoses Trigger finger, left middle finger M65.332 Diabetes mellitus E11.9
[2024-06-05 12:47] VITALS: BMI 20.5
--- OUTSIDE RECORDS SUMMARY | 2024-06-05 13:58 | XMS_ITS | Encounter Summary ---
Author Organization [employer] Address [address] [facility] 7t [place] [address] Care Team Providers Care Aging Department Supervisor Name Role Phone Earlene Beck MD Primary Care Provider [phone] Reason for Visit * Reason Comments Med Refill Encounter Details Date Type Department Care Team ([facility] st Contact Info) Description 05/31/2024 Refill [facility] CHC MED & PEDS [address] [place], [place] [phone] Earlene Beck MD [address] [place] [address] Osteoarthritis of multiple joints, unspecified osteoarthritis type; [...] t he electric, gas, oil or water [email or web address] threatened to shut off services in your [...] syndrome documented in this encounter Care Teams Aging Department Supervisor Relationship Specialty Start Date End Date Earlene Beck MD [address] [place] [address] PCP - General Family Medicine 02/26/20 documented as of this encounter
--- OUTSIDE RECORDS SUMMARY | 2024-06-05 13:58 | XMS_ITS | Clinical Summary ---
Author Organization [employer] Address [address] [place] [address] 7[address] [place] [address] Care Team Providers Care Commodity Supervisor Name Role Phone Earlene Beck MD Primary Care Provider [phone] Allergies Active Allergy Reactions Criticality Noted Date Comments Naproxen 06/11/2013 Medications * This document contains information received from the source organization and may not represent a complete record from that organization. amitriptyline (Elavil) 75 MG tablet Take 75 mg by mouth at bedtime. 022 Active oxyCODONE-acetami nophen (Percocet) 5-325 MG tablet TAKE ONE TABLET BY MOUTH ONCE DAILY NEEDED FOR PAIN 022 Active famotidine (Pepcid) 40 MG tabletIndications :Epigastric pain Take 1 tablet (40 mg) by mouth at bedtime. 90 tablet 1 023 Active acetaminophen (Tylenol 8 Hour) 650 MG ER tabletIndications :Osteoarthritis of multiple joints, unspecified osteoarthritis type TAKE TWO TABLETS BY MOUTH EVERY 8 HOURS NEEDED WITH WATER DO NOT BREAK, CRUSH, DISSOLVE OR CHEW 90 tablet 11 023 Active Umeclidinium [place] (Incruse Ellipta) 62.5 MCG/ACT aerosol powderIndications :Chronic obstructive pulmonary disease, unspecified COPD type (CMS/HCC) INHALE 1 PUFF DAILY AT THE SAME TIME EACH DAY IN THE MORNING 1 each 3 023 Active ammonium lactate (Lac-Hydrin) 12 % lotion APPLY ON FEET ONCE DAILY 226 g 11 023 Active Blood Glucose Monitoring Suppl (flexReceiptsStyle Lakeland Lite) w/Device kit 023 Active Viberzi 75 MG tablet TAKE ONE TABLET TWICE DAILY WITH MEALS OR WITH FOOD Active Blood Pressure kitIndications:El evated blood pressure reading 1 Units in the morning. 1 kit Active dulaglutide (Trulicity) 3 MG/0.5ML solution pen-injector Inject 3 mg under the skin 1 (one) time per week. 4 each 2 Active Additional Information Patient not taking.Reported on 04/12/2024 Continuous Blood Gluc Sex Offender Treatment Professional (FreeStyle Ehtal 2 [place]) deviceIndications :Type 2 diabetes mellitus with diabetic neuropathy, with long-term current use of insulin ([facility]) Use to monitor interstitial glucose 8 times a day and prn. 1 each Active carvedilol (Coreg) 12.5 MG tablet TAKE ONE TABLET TWICE DAILY IN THE MORNING AND AT BEDTIME WITH FOOD 180 tablet 1 Active Aspirin Adult Low Strength 81 MG EC tablet TAKE ONE TABLET EVERY MORNING 90 tablet 1 Active Pentips 32G X 4 MM misc USE TO INJECT INSULIN DAILY 100 each Active FREESTYLE LITE test stripIndications: Type 2 diabetes mellitus with diabetic neuropathy, with long-term current use of insulin ([facility]) TEST BLOOD SUGAR UP TO THREE TIMES DAILY DIRECTED 100 strip Active Easy Touch Lancets 33G/Twist miscIndications:T ype 2 diabetes mellitus with diabetic neuropathy, with long-term current use of insulin ([facility]) TEST BLOOD SUGAR THREE TIMES DAILY 100 each Active Fluticasone Furoate-Vilantero l (Breo Ellipta) 100-25 MCG/ACT aerosol powder Inhale 25 mcg 2 times daily. 1 each 024 2024 Active sertraline (Zoloft) 100 MG tablet TAKE ONE TABLET EVERY MORNING WITH 50 MG TABLET 30 tablet Active mirtazapine (Remeron) 45 MG tablet TAKE ONE TABLET EVERY NIGHT AT BEDTIME 30 tablet Active sertraline (Zoloft) 50 MG tablet TAKE ONE TABLET EVERY MORNING WITH 100 MG TABLET 30 tablet Active oxybutynin (Ditropan) 5 MG tablet TAKE ONE TABLET TWICE DAILY IN THE MORNING AND AT BEDTIME 60 tablet 11 Active Toujeo SoloStar 300 UNIT/ML injection INJECT 20 UNITS SUBCUTANEOUSLY AT BEDTIME 4.5 mL 3 Active Continuous Glucose Sex Offender Treatment Professional (FreeStyle Hetal 2 [place]) device Scan sensor every 8 hours 1 each Active glucose blood (FreeStyle Precision Hardik Test) test strip Use to test blood sugar 3 times daily 100 each 12 024 2024 Active Diclofenac Sodium 1 % gel APPLY 2 GRAM'S TO AFFECTED AREA(s) TWICE DAILY NEEDED 100 g 3 Active esomeprazole (NexIUM) [address] capsuleIndication s:Gastroesophagea l reflux disease without esophagitis TAKE ONE CAPSULE EVERY MORNING BEFORE BREAKFAST 90 capsule 1 Active metFORMIN (Glucophage) 1000 MG tabletIndications :Type 2 diabetes mellitus with diabetic polyneuropathy (CMS/HCC) TAKE ONE TABLET IN THE MORNING AND EVENING 180 tablet 1 Active Alcohol Swabs (Alcohol Prep) 70 % pads USE THREE DAILY 100 each 5 Active cholecalciferol VITAMIN D (Vitamin D-3) 50 MCG (1999 UT) capsule TAKE ONE CAPSULE EVERY MORNING 90 capsule 3 Active Farxiga 5 MG TAKE ONE TABLET EVERY MORNING 30 tablet 11 Active Continuous Glucose Sensor (FreeStyle Hetal 2 Sensor) misc USE DIRECTED AND CHANGE EVERY 14 DAYS 2 each 3 Active diclofenac (Voltaren) 75 MG EC tablet TAKE ONE TABLET TWICE DAILY NEEDED FOR PAIN Active ipratropium-albut jerica (Duo-Neb) 0.5-2.5 mg/3 mL nebulizer solution INHALE ONE AMPULE USING A NEBULIZER EVERY 4 TO 6 HOURS NEEDED FOR WHEEZING Active Anoro Ellipta 62.5-25 MCG/ACT aerosol powder INHALE 1 PUFF ONCE DAILY. RINSE MOUTH AFTER USE Active divalproex (Depakote) 500 MG EC tablet Take 500 mg by mouth. Active amLODIPine (Norvasc) 2.5 MG tablet Take 2.5 mg by mouth in the morning. Active Combivent Respimat 20-100 MCG/ACT inhalerIndication s:Chronic obstructive pulmonary disease, unspecified COPD type (CMS/HCC) INHALE 1 PUFF 4 TIMES A DAY, MAY TAKE ADDITIONAL PUFFS NEEDED. (MAX 6 PUFFS PER DAY) 12 g 1 025 Active gabapentin (Neurontin) 800 MG tabletIndications :Osteoarthritis of multiple joints, unspecified osteoarthritis type TAKE 1 TABLET IN THE MORNING and TAKE TWO TABLETS EVERY DAY AT BEDTIME 90 tablet 1 025 Active atorvastatin (Lipitor) 80 MG tablet TAKE ONE TABLET EVERY NIGHT AT BEDTIME 30 tablet 5 Active dicyclomine (Bentyl) 20 MG tabletIndications :Irritable bowel syndrome with diarrhea TAKE 1 TABLET in the morning, at noon, in the evening, and at bedtime 120 tablet 1 Active cetirizine (ZyrTEC) 10 MG tablet TAKE ONE TABLET EVERY MORNING 30 tablet 5 Active atorvastatin (Lipitor) 80 MG tablet TAKE 1 TABLET EVERY NIGHT AT BEDTIME 30 tablet 5 024 2024 Discontinued cetirizine (ZyrTEC) 10 MG tablet TAKE ONE TABLET EVERY MORNING 30 tablet 5 024 2024 Discontinued gabapentin (Neurontin) 800 MG tabletIndications :Osteoarthritis of multiple joints, unspecified osteoarthritis type TAKE ONE TABLET EVERY MORNING and TAKE TWO TABLETS EVERY DAY AT BEDTIME 90 tablet 1 024 2024 Discontinued dicyclomine (Bentyl) 20 MG tabletIndications :Irritable bowel syndrome with diarrhea TAKE ONE TABLET in the morning, at noon, in the evening, and at bedtime 120 tablet 1 024 2024 Discontinued Active Problems Problem Noted Date Diagnosed Date Abdominal pain 10/31/2022 Assessment & Plan (10/31/2022 9:41 AM EDT): Advised patient to call to schedule an appointment with GI Dr. Elvi Darling. Hyperkalemia 10/31/2022 Assessment & Plan (10/31/2022 9:41 AM EDT): Patient seen in [facility] ED on 10/07/22 for abdominal pain with [...] Type Department Care Team Description 05/31/2024 Refill [facility] MED & PEDS [address] [place] [address] Earlene Beck MD Osteoarthritis of multiple joints, unspecified osteoarthritis type; Irritable bowel syndrome with diarrhea 05/02/2024 Refill [facility] MED & PEDS [address] [place] [address] Earlene Beck MD Chronic obstructive pulmonary disease, unspecified COPD type (CMS/HCC) 04/29/2024 Orders Only [facility]ED[facility] [address] [place] [address] ProviderKat MD 04/15/[address] [facility] [address] [place] [address] Mera Cordova, laminating machine operator 04/12/2024 2:30 PM EST Office Visit [facility]OMET[facility] [address] [place] [address] Ralph, Clarisa, OD Diabetes type 2, no ocular involvement (CMS/HCC) (Primary Dx); Chorioretinal scar, left eye; Early cataracts, bilateral; Punctal stenosis, acquired, left; Presbyopia 04/12/2024 Travel 04/12/2024 Telephone [facility] PED[facility] [address] [place] [address] Earlene Beck MD 04/11/2024 8:30 AM EST Office Visit [facility]ED[facility] [address] [place] [address] Earlene Beck MD Chronic obstructive pulmonary disease, unspecified COPD type (CMS/HCC) (Primary Dx); Type 2 diabetes mellitus with diabetic neuropathy, with long-term current use of insulin (CMS/HCC); Encounter for immunization; Polyneuropathy associated with underlying disease (CMS/HCC) 04/11/2024 Travel 04/07/2024 Refill [facility] PEDS [address] [place] [address] Earlene Beck MD Osteoarthritis of multiple joints, unspecified osteoarthritis type; Irritable bowel syndrome with diarrhea 04/05/2024 Refill [facility] MED [facility] PEDS [address] [place] [address] Earlene Beck MD 03/30/2024 Orders Only [facility] External Provider, [facility] 03/26/2024 Travel 03/22/[address] [facility] [address] [place] [address] Earlene Bcek MD Pre-visit Planning ([facility] unable to reach LVM) 03/14/[address] [facility] [address] [facility] [place] [address] Earlene Beck MD 03/13/[address] [facility] [address] [facility] [place] [address] Earlene Beck MD Gastroesophageal reflux disease without esophagitis; Type 2 diabetes mellitus with diabetic polyneuropathy ([facility]) 03/09/[address] [facility] [address] [facility] [place] [address] Earlene Beck MD 03/06/[address] [facility] [address] [facility] [place] [address] Earlene Beck MD from Last 3 Months [...] neuropathy, with long-term current use of insulin ([facility]) HEPATIC FUNCTION PANEL Routine 04/12/2024 9:12 AM EST Type 2 diabetes mellitus with diabetic neuropathy, with long-term current use of insulin ([facility]) BASIC METABOLIC PANEL Routine 04/12/2024 9:12 AM EST Type 2 diabetes mellitus with diabetic neuropathy, with long-term current use of insulin ([facility]) POCT GLUCOSE Routine 04/11/2024 8:54 AM EST Type 2 diabetes mellitus with diabetic neuropathy, with long-term current use of insulin ([facility]) HEMOGLOBIN A1C Routine 04/10/2024 9:26 AM EST MR SHOULDER WO CONTRAST RIGHT Routine 03/30/2024 11:09 AM EST from Last 3 Months Results * (ABNORMAL) Hepatic Function Panel (04/12/2024 9:12 AM EST) Bilirubin, Total 0.3 0.0 - 1.0 mg/dL [facility] Bilirubin, Direct 0.2 0.0 - 0.5 mg/dL [facility] Aspartate Amino Transferase 22 5 - 37 U/L [facility] Alanine Aminotransferase 11 0 - 40 U/L [facility] Total Protein 6.2(L) 6.5 - 8.0 g/dL [facility] Albumin Level 3.7 3.5 - 5.0 g/dL [facility] Alkaline Phosphatase 71 39 - 117 U/L [facility] Blood Venous blood specimen / Unknown 04/12/2024 9:12 AM EST 04/12/2024 2:18 PM EST Earlene Beck MD LAB BLOOD ORDERABLES Final Resul t Performing Organization Address [facility] de Phone Number [facility] [address] [place] [phone] * (ABNORMAL) Lipid Panel, Standard (04/12/2024 9:12 AM EST) Triglycerides 54 <150 mg/dL [facility] Comment:Desirable Triglyceri de: less than 150 mg/dLBorderline High Triglyceride 150-199 mg/dLHigh Triglyceride: 200-499 mg/dLVery High Triglyceride: greater than or equal to 5OO mg/dL Cholesterol 98 <200 mg/dL [facility] Comment:Desirable Cholestero l: less than 200 mg/dLBorderline High Cholesterol: 200-239 mg/dLHigh Cholesterol: greater than 239 mg/dL LDL Cholesterol Calculated 55 <100 mg/dL [facility] Comment:Desirable LDL: less than 100 mg/dLNear Optimal/Above Optimal LDL: 110- 129 mg/dLBorderline High LDL: 130-159 mg/dLHigh LDL: 160-189 mg/dLVery High LDL: greater than or equal to 190 mg/dL HDL Cholesterol 33(L) >40 mg/dL [facility] Comment:Desirable HDL: great er than 40 mg/dL Note: This HDL assay may give artificially low results in patients with liver disease. Blood Venous blood specimen / Unknown 04/12/2024 9:12 AM EST 04/12/2024 2:18 PM EST Earlene Beck MD LAB BLOOD ORDERABLES Final Resul t Performing Organization Address City/[facility]/ZIP Co de Phone Number [facility] [address] [place] [address] [phone] * (ABNORMAL) Basic Metabolic Panel (04/12/2024 9:12 AM EST) Pathologist [facility] Sodium 141 135 - 145 mmol/L [facility] Potassium 5.0 3.3 - 5.1 mmol/L [facility] Chloride 105 96 - 108 mmol/L [facility] Carbon Dioxide 30(H) 22 - 29 mmol/L [facility] Anion Gap 11(L) 12 - 20 [facility] Urea Nitrogen (BUN) 13 9 - 16 mg/dL [facility] Creatinine, Serum 0.99 0.5 - 1.4 mg/dL [facility] Estimated Glomerular Filt Rate >60 [facility] Comment:Chronic Kidney Disea se: Estimated GFR < 60 mL/min/[id number] Kidney Disease: Estimated GFR < 15 mL/min/1.73m2 Glucose 227(H) 60 - 115 mg/dL [facility] Calcium 8.8 8.4 - 10.2 mg/dL [facility] Blood Venous blood specimen / Unknown 04/12/2024 9:12 AM EST 04/12/2024 2:18 PM EST us Earlene Beck MD LAB BLOOD ORDERABLES Final Resul t [facility] [address] [place] [address] [phone] * (ABNORMAL) POCT Glucose (04/11/2024 8:54 AM EST) Pathologist [facility] Glucose Blood, POC 399(A) 60 - 200 mg/dL QC Media Lot # [id number] Lot# Expiration Date Blood Capillary blood specimen / Unknown 04/11/2024 8:54 AM EST us Earleen Beck MD POINT OF CARE TEST ENTER/EDIT OR DERABLES Final Result * Hemoglobin A1c (04/10/2024 9:26 AM EST) Blood Venous blood specimen / Unknown us Historical Provider MD LAB BLOOD ORDERABLES Yasmeen page Result * MR Shoulder w/o Contrast Right (03/30/2024 11:09 AM EST) Anatomical Region Laterality Modality Upper Extremities, Shoulder Right Magn etic Resonance 03/30/2024 11:0 9 AM EST Narrative 04/11/2024 1:20 PM EST ? [facility] ?[address] ?[place] [address] ? Magnetic Resonance Report ? Signed ? Patient: Aravind Mosqueda ?MR#: [id number] ?? [id number] ? : 1965 ?Acct:[id number] ? Age/Sex: 58 / M ?ADM Date: 03/30/24 ? Loc: HO.MRI ? Attending Dr: Tomy Vee MD ? Ordering Physician: Tomy Vee MD ?? Date of Service: 03/30/24 ?? Procedure(s): MR shoulder RT wo con ?? Accession Number(s): [id number] ? cc: Tomy Vee MD; Earlene Beck [...] ??Matthew Jones MD ??04/11/2024 01:18 PM EST ? Dictated By: ?Matthew Jones MD ? Signed By: ?<Electronically signed by Matthew Jones MD in OV> ?04/11/24 1318 ? DD/ 1109 ? TD/TT: 03/30/24 1137 ? Driver Trainee: SR ? Procedure Note Josh, Image - 04/12/2024 [place] [address] Magnetic Resonance Report Signed Patient: Salvatore Mosqueda#: [id number] : 1965Acct:[id number] Age/Sex: 58 / MADM Date: 03/30/24 Loc: HO.MRI Attending Dr: Tomy Vee MD Ordering Physician: Tomy Vee MD Date of Service: 03/30/24 Procedure(s): MR shoulder RT wo con Accession Number(s): [id number] cc: Tomy Vee MD; Earlene Beck MD [...] by: Matthew Jones MD 04/11/2024 01:18 PM [facility] Dictated By: Matthew Jones MD Signed By: <Electronically signed by Matthew Jones MD in OV> 04/11/24 1318 DD/ 1109 TD/TT: 03/30/24 1137 Driver Trainee: [facility] External Provider IMG MRI PROCEDURES Edited Result - Final from Last 3 Months Insurance Care Teams Commodity Supervisor Relationship Specialty Start Date End Date Earlene Beck MD [address] [place] [phone] PCP - General Family Medicine 02/26/20
--- OUTSIDE RECORDS SUMMARY | 2024-06-05 13:58 | XMS_ITS | Encounter Summary ---
Author Organization [employer] Address [address] [place] [address] [address] [place] [address] Care Team Providers Care Citrix Architect Name Role Phone Earlene Beck MD Primary Care Provider [phone] Reason for Visit * Reason Comments Med Refill Encounter Details Date Type Department Care Team (Late st Contact Info) Description 05/12/2022 Refill [facility]EDS [address] [place], [place] [phone] Earlene Beck MD [address] [place] [address] Irritable bowel syndrome with diarrhea; Type 2 [...] (CMS/HCC) documented in this encounter Care Teams Citrix Architect Relationship Specialty Start Date End Date Earlene Beck MD [address] [place] [phone] PCP - General Family Medicine 02/26/20 documented as of this encounter
--- OUTSIDE RECORDS SUMMARY | 2024-06-05 13:58 | XMS_ITS | Encounter Summary ---
Author Organization [email or web address] Address [address] [place] [address] 7t [place] [address] Care Team Providers Care Enhanced Environmental Operator Name Role Phone Earlene Beck MD Primary Care Provider [phone] Reason for Visit * Reason Comments Med Refill Encounter Details Date Type Department Care Team ([facility] st Contact Info) Description 05/12/2022 Refill [facility] PEDS [address] [place], [place] [phone] Earlene Beck MD [address] [place] [address] Irritable bowel syndrome with diarrhea; Gastro-esophageal reflux [...] esophagitis documented in this encounter Care Teams Enhanced Environmental Operator Relationship Specialty Start Date End Date Earlene Beck MD [address] [place] [phone] PCP - General Family Medicine 02/26/20 documented as of this encounter
--- OUTSIDE RECORDS SUMMARY | 2024-06-05 13:59 | XMS_ITS | Clinical Summary ---
Author Organization [facility] Address [address] [place] [address] Phone Care Team Providers Care Bed Control Specialist Name Role Phone Earlene Beck MD Primary Care Provider [phone] Allergies Active Allergy Reactions Criticality Noted Date [...] 05/30/2024 9:30 AM EST Office Visit [facility] [address] [phone] Oracio Smalls DPM Dermatophytosis of nail (Primary Dx); Diabetic mononeuropathy simplex (CMS/HCC); Tinea pedis of both feet 03/25/2024 2:15 PM EST Office Visit [facility] [address] [phone] Oracio Smalls DPM Diabetic mononeuropathy simplex (CMS/HCC) [...] PM EDT Office Visit Orthopedic [facility] - [place] [address] [phone] Oracio Smalls, DPM [address] [address] Health Maintenance Due Date Last Done Comments [...] age to complete this topic Care Teams Bed Control Specialist Relationship Specialty Start Date End Date Earlene Beck MD [address] [place] [address] [phone] PCP - General 12/27/23
--- OUTSIDE RECORDS SUMMARY | 2024-06-05 13:59 | XMS_ITS | Encounter Summary ---
Author Organization [employer] [facility] Address [address] [facility] 7t [place] [address] Care Team Providers Care Tax Compliance Officer Name Role Phone Earlene Beck MD Primary Care Provider [phone] Encounter Details Date Type Department Care Team (Latest Contact Info) Description 05/09/2018 Abstract [facility] CONVERSIONS Dental, Provider, DDS Social History [...] on filedocumented in this encounter Care Teams Tax Compliance Officer Relationship Specialty Start Date End Date Earlene Beck MD [address] [place] [phone] PCP - General Family Medicine 02/26/20 documented as of this encounter
--- OUTSIDE RECORDS SUMMARY | 2024-06-05 13:59 | XMS_ITS | Encounter Summary ---
Author Organization [employer] Address [address] [facility] [address] [place] [address] Care Team Providers Care Store Manager Name Role Phone Earlene Beck MD Primary Care Provider [phone] Reason for Visit * Reason Onset Date Comments Lab Orders 02/22/2024 Encounter Details Date Type Department Care Team ([facility] st Contact Info) Description 02/22/2024 Telephone [facility] MED[facility] [address] [place] [address] Earlene Beck MD [address] [place] [address] Lab Orders Social History Tobacco Use Types [...] on filedocumented in this encounter Care Teams Store Manager Relationship Specialty Start Date End Date Earlene Beck MD [address] [place] [phone] PCP - General Family Medicine 02/26/20 documented as of this encounter
--- OUTSIDE RECORDS SUMMARY | 2024-06-05 13:59 | XMS_ITS | Encounter Summary ---
Author Organization [facility] Address [address] [facility] 7t [place] [address] Care Team Providers Care Sugar Cane Grower Name Role Phone Earlene Beck MD Primary Care Provider [phone] Encounter Details Date Type Department Care Team (Latest Contact Info) Description 06/08/2020 Abstract [facility] CONVERSIONS Dental, Provider, DDS Social History [...] on filedocumented in this encounter Care Teams Sugar Cane Grower Relationship Specialty Start Date End Date Earlene Beck MD [address] [place] [phone] PCP - General Family Medicine 02/26/20 documented as of this encounter
--- OUTSIDE RECORDS SUMMARY | 2024-06-05 13:59 | XMS_ITS | Data Portability ---
Author Organization [employer] Address [address] [place] [phone] Care Team Providers Care Ob/Gyn Doctor Name Role Phone [facility] Referring Provider [facility] Referring Provider Assessment Encounter Date Assessment Date Assessment LastModified by Organization Details LastModified Time 08/23/2022 08/23/2022 I have reviewed and agree with the Assessment and Plan as documented by the Environmental Analyst. I provided real-time medical direction via [...] [id number] Theodore Yun MD Main - [facility] [address] [place] [phone] 08/23/2022 13:24:48 08/25/2022 11:38:02 Cough [id number] R05.9 Health Concerns Section Related Observation LastModified by Organization Detai ls LastModified Time None Recorded Concern Status LastModified by Organization Details LastModified Time None Recorded Advance Directives Directive None Recorded Payers Encounter Date Sequence Insurance Name Policy Number Policy Ford Covered Member ID Ford Member ID Guarantor Name 08/23/2022 1 [facility] - DOS PRIOR TO 2022 - DUAL ELIGIBLE (MEDICARE REPLACEMENT/ADV ANTAGE - HMO) Aravind Mosqueda [id number] Aravind Mosqueda Notes Date Note Type Note [...] .................. .................. .................. .................. .................. .................. ............... Environmental Analyst Note From Jory Yoon: Community Environmental Analyst Earlene Yoon SC6 dispatched to a [facility] for a 57 yom C/O [...] ............... Disposition: Fulfilled Theodore Yun MD [address] [facility],[address], [place], [address], [email or web address] 08/23/2022 17:10:22
--- OUTSIDE RECORDS SUMMARY | 2024-06-05 13:59 | XMS_ITS | Encounter Summary ---
Author Organization [employer] Address [address] [facility] 7t [place] [address] Care Team Providers Care Urban Planning Teacher Name Role Phone Earlene Beck MD Primary Care Provider [phone] Reason for Visit * Reason Comments Med Refill Encounter Details Date Type Department Care Team ([facility] st Contact Info) Description 01/04/2024 Refill [facility] CHC MED & PEDS [address] [place], [place] [phone] Emelina Carmona MD [address] [place] [address] Social History Tobacco Use Types Packs/Day Years [...] on filedocumented in this encounter Care Teams Urban Planning Teacher Relationship Specialty Start Date End Date Earlene Beck MD [address] [place] [address] PCP - General Family Medicine 02/26/20 documented as of this encounter
--- OUTSIDE RECORDS SUMMARY | 2024-06-05 13:59 | XMS_ITS | Encounter Summary ---
Author Organization [facility] Address [address] [facility] [address] 7t [place] [address] Care Team Providers Care Senior Billing Consultant Name Role Phone Earlene Beck MD Primary Care Provider [phone] Encounter Details Date Type Department Care Team ([facility] st Contact Info) Description 04/29/2024 Orders Only [facility] CHC MED & PEDS [address] [place] [address] ProviderKat MD Social History Tobacco Use Types [...] on filedocumented in this encounter Care Teams Senior Billing Consultant Relationship Specialty Start Date End Date Earlene Beck MD [address] [place] [address] PCP - General Family Medicine 02/26/20 documented as of this encounter
--- OUTSIDE RECORDS SUMMARY | 2024-06-05 13:59 | XMS_ITS | Encounter Summary ---
Author Organization [facility] Address [address] [facility] 7t [place] [address] Care Team Providers Care Acidity Tester Name Role Phone Earlene Beck MD Primary Care Provider [phone] Encounter Details Date Type Department Care Team (Latest Contact Info) Description 11/09/2018 Abstract [facility] CONVERSIONS Dental, Provider, DDS Social History [...] on filedocumented in this encounter Care Teams Acidity Tester Relationship Specialty Start Date End Date Earlene Beck MD [address] [place] [address] PCP - General Family Medicine 02/26/20 documented as of this encounter
--- OUTSIDE RECORDS SUMMARY | 2024-06-05 13:59 | XMS_ITS | Encounter Summary ---
Author Organization [employer] Address [address] [place] [address] 7t [place] [address] Care Team Providers Care Acid Cleaner Name Role Phone Earlene Beck MD Primary Care Provider [phone] Reason for Visit * Reason Comments Med Refill Encounter Details Date Type Department Care Team ([facility] st Contact Info) Description 01/10/2023 Refill [facility] CHC MED & PEDS 505 [place], [place] [phone] Marie Reeves MD 505 [place] [address] Irritable bowel syndrome with diarrhea Social History [...] syndrome documented in this encounter Care Teams Acid Cleaner Relationship Specialty Start Date End Date Earlene Beck MD [address] [place] [address] PCP - General Family Medicine 02/26/20 documented as of this encounter
--- OUTSIDE RECORDS SUMMARY | 2024-06-05 13:59 | XMS_ITS | Encounter Summary ---
Author Organization [facility] Address [address] [place] [phone] Care Team Providers Care Sanitation Worker Cleaning Machinery Name Role Phone Earlene Beck MD Primary Care Provider [phone] Reason for Visit * Reason Comments Follow-up Diabetic foot care Encounter Details Date Type Department Care Team ([facility] st Contact Info) Description 05/30/2024 9:30 AM EST Office Visit Orthopedic [facility] - [place] [address] [phone] Oracio Smalls, DPM [address] [address] Dermatophytosis of nail (Primary Dx); Diabetic mononeuropathy [...] Diagnosis Diabetic neuropathy, type II diabetes mellitus ([facility]) Long-term insulin use in type 2 diabetes ([facility]) Seizure ([facility]) COPD (chronic obstructive pulmonary disease) ([facility]) SOCIAL HISTORY: Social History Tobacco Use Smoking [...] PM EDT Office Visit [facility]opedic Surgery - [place] [address] [phone] Oracio Smalls DPM [address] [address] documented as of this encounter Visit Diagnoses Diagnosis Dermatophytosis of nail- Primary Diabetic mononeuropathy simplex (CMS/HCC) Type II or unspecified type diabetes mellitus with neurological manifestations, not stated as uncontrolled Tinea pedis of both feet documented in this encounter Care Teams Sanitation Worker Cleaning Machinery Relationship Specialty Start Date End Date Earlene Beck MD [address] [place] [address] PCP - General 12/27/23 documented as of this encounter
--- OUTSIDE RECORDS SUMMARY | 2024-06-05 13:59 | XMS_ITS | Encounter Summary ---
Author Organization [employer] Address [address] [place] [address] 7 [place] [address] Care Team Providers Care Early Childhood Name Role Phone Earlene Beck MD Primary Care Provider [phone] Reason for Visit * Reason Comments Med Refill Encounter Details Date Type Department Care Team (Late st Contact Info) Description 01/07/2023 Refill [facility] CHC MED & PEDS 505 [place], [place] [phone] Marie Reeves MD 505 [place] [address] Osteoarthritis of multiple joints, unspecified osteoarthritis type [...] type documented in this encounter Care Teams Early Childhood Relationship Specialty Start Date End Date Earlene Beck MD [address] [place] [address] PCP - General Family Medicine 02/26/20 documented as of this encounter
== END 2024-06-05 13:09 | disposition home or self-care (01) ==
PROVIDERS: PCP Student in an Organized Health Care Education/Training Program; Visit Provider Orthopaedic Surgery
DX: M65.332 Trigger finger, left middle finger (principal); E11.9 Type 2 diabetes mellitus without complications
CPT/HCPCS: 99024

== ENCOUNTER → 2024-06-05 12:35 | Outpatient (BNVA) | payer OTHER, SELFPAY | PROVIDERS: PCP Student in an Organized Health Care Education/Training Program; Visit Provider Orthopaedic Surgery | DX: M65.332 Trigger finger, left middle finger (principal); E11.9 Type 2 diabetes mellitus without complications | CPT/HCPCS: 99212 ==

== ENCOUNTER 2024-06-19 13:44 | Day surgery (SDC) | payer OTHER, SELFPAY ==
[2024-06-19 13:54] VITALS: BP 146/86; PULSE 66; RESP 16; TEMP 36.1; O2SAT 97; BMI 20.7
--- NOTE | 2024-06-19 14:10 | MHC.SHP ---
Pre-Procedural Eval Section A - 24 Hr Update-Section A only Date of Service: 06/19/24 The patient is an INPATIENT: No The patient has been examined within 24 hours of the surgical procedure. The History & Physical has been completed within 30 days and I have reviewed it.: Yes Section B - Complete if H&P > 30 days Chief Complaint: Trigger finger, left middle finger Allergies: Allergies Allergy/AdvReac Type Severity Reaction Status Date / Time naproxen [From NAPROSYN] Allergy Mild HIVES Verified 06/19/24 13:55 Plan Diagnosis/Plan: Unchanged I have reviewed the history and physical and performed a pertinent physical examination on my patient. No changes have occurred unless specified. Time Spent With Patient Time: Total time managing care of this patient today ____ minutes.
--- NOTE | 2024-06-19 14:11 | P.OP_ITS ---
Operative Note Operative Note Date of Service: 06/19/24 Narrative: Operative Note Preop diagnosis: 1. Left middle finger Trigger finger Postop diagnosis: Same Procedure: 1. Left middle finger A1 johnna release Surgeon: Shireen Esquivel MD Professional Services Specialist: Alex MOYER Anesthesia: local block using 1% lidocaine with epinephrine Findings: No locking or catching after A1 johnna release EBL: Less than 5 mL Tourniquet time: None Specimens: None Complications: None Disposition: Brought to recovery room in stable condition Plan: Follow-up for 10-14 days for wound check and suture removal Indications: The patient is 59 years old, with a left middle finger trigger finger that has been unresponsive to nonoperative management. The risks and benefits of operative treatment including but not limited to risk of damage to blood vessels, nerves, tendons, infection, persistent pain, persistent symptoms, recurrence or possible need for additional surgery were discussed with the patient and the patient wishes to proceed with surgery. Procedure: Once consent was obtained a local block was performed in the preop area using a combination of 1% lidocaine with epinephrine. The patient was then brought back to the operating suite and placed on the operative table in supine position. The left upper extremity was prepped and draped in a standard surgical fashion. Once assured that we had a good block, a 1.5 cm oblique incision was made centered over the A1 johnna of the left middle finger . The incision was made through the skin to the subcutaneous tissues using a #15 blade. Careful dissection was made down to the level of the A1 johnna using tenotomy scissors, with care being taken to protect the nearby neurovascular structures. A longitudinal incision was made in the A1 johnna 1st using a #15 blade, then using tenotomy scissors under direct visualization. The A1 johnna was noted to be thickened. Following our A1 johnna release, we no longer saw any locking or catching of the digit with flexion and extension. Once satisfied with our A1 johnna release the wound was copiously irrigated with normal saline and hemostasis was obtained with a brief period of local pressure. The skin edges were reapproximated with some 5.0 nylon suture material and a sterile dressing was applied. The patient appears to have tolerated the procedure well and with no complications. All digits were well vascularized at the conclusion of the case.
[2024-06-19 14:41] VITALS: BP 146/89; PULSE 59; RESP 18; O2SAT 97
== END 2024-06-19 15:01 | disposition home or self-care (01) ==
PROVIDERS: PCP Student in an Organized Health Care Education/Training Program; Visit Provider Orthopaedic Surgery
PROC: (CPT 26055; principal; 2024-06-19 15:30)
DX: M65.332 Trigger finger, left middle finger (principal); J44.9 Chronic obstructive pulmonary disease, unspecified; I25.2 Old myocardial infarction; I10 Essential (primary) hypertension; E78.5 Hyperlipidemia, unspecified; R56.9 Unspecified convulsions; E11.42 Type 2 diabetes mellitus with diabetic polyneuropathy; Z79.4 Long term (current) use of insulin; Z88.6 Allergy status to analgesic agent; F10.10 Alcohol abuse, uncomplicated; Z87.891 Personal history of nicotine dependence; Z56.0 Unemployment, unspecified
CPT/HCPCS: 26055; J0171; J2003

== ENCOUNTER → 2024-06-19 13:44 | Outpatient (BNV) | payer OTHER, SELFPAY | PROVIDERS: PCP Student in an Organized Health Care Education/Training Program; Visit Provider Orthopaedic Surgery | DX: M65.332 Trigger finger, left middle finger (principal) | CPT/HCPCS: 26055 ==

== ENCOUNTER → 2024-06-20 10:06 | Outpatient (BNVA) | payer OTHER, SELFPAY | PROVIDERS: PCP Student in an Organized Health Care Education/Training Program; Visit Provider Nurse Practitioner Family ==

== ENCOUNTER 2024-07-03 09:15 | Outpatient (AMB) | payer OTHER, SELFPAY ==
--- NOTE | 2024-07-03 09:16 | MHC.OFFVIS ---
Vital Signs 07/03/24 09:22 Height 5 ft 9 in Weight 140 lb BMI 20.7 Handedness Right Intake Visit Reasons: PO LT MF trigger 06/19/24 AR Intake Note: Aravind is a 59 year old right hand dominant male who presents today for his first post operative appointment s/p Left Middle Finger Trigger Release 06/19/24. Patient reports his left middle finger has occasionally been catching but not like before. Reports some pain at incision site. Denies numbness and tingling. Sutures out and Steri Strips applied. Allergies naproxen [From NAPROSYN] Allergy (Mild, Verified 07/03/24 09:22) HIVES HPI HPI PO LT MF trigger 06/19/24 AR: Details: Aravind is a 59 year old right hand dominant male who presents today for his first post operative appointment s/p Left Middle Finger Trigger Release 06/19/24. Patient reports his left middle finger has occasionally been catching but not like before. Reports some pain at incision site. Denies numbness and tingling. Sutures out and Steri Strips applied. [facility] Medical History Long-term insulin use in type 2 diabetes Diabetes type 2, uncontrolled Tobacco abuse Sleep apnea Myocardial infarction BPH (benign prostatic hyperplasia) Depression Thrombocytopenia Alcohol abuse Peripheral neuropathy COPD (chronic obstructive pulmonary disease) Seizures Essential hypertension Hyperlipidemia LDL goal <70 Type 2 diabetes mellitus with diabetic polyneuropathy Surgical History Hx of shoulder surgery History of esophagogastroduodenoscopy (EGD) H/O colonoscopy History of arthroscopic surgery of shoulder Hx of hernia repair Hx of pneumonectomy Hx of knee surgery Family History Father Cancer Diabetes Mother CVD (cardiovascular disease) Social History Household Members: Spouse Alcohol intake: never Patient Tobacco Use Status: Former Tobacco user Tobacco use type: Cigarette Years Smoked: 40 Current occupational status: unemployed Current occupation: Right Handed Review of Systems Const All systems reviewed & are unremarkable except as noted in HPI and below Physical Exam Vital Signs: BMI result Body Mass Index 20.7 Extrem Other: Patient is alert, oriented, and in no acute distress. Neuro: Normal sensation of the tips of all digits of the left hand at this time Vascular: Cap refill brisk Pain: No tenderness to palpation about the incision site of the A1 johnna of the left middle finger ROM: Patient is able to flex and extend all digits of the left hand fully and without difficulty No further locking or catching of the left middle finger Skin: No lacerations or abrasions. General: No ecchymosis, erythema, or evidence of infection. Psych: Appears grossly normal Affect normal Attitude cooperative Assessment & Plan Assessment & Plan (1) Trigger finger, left middle finger: Code(s): M65.332 - Trigger finger, left middle finger Category: Medical Plan 1. Status post left middle finger trigger release DOS 06/19/24 Patient appears to be recovering well postoperatively Patient was educated about the typical recovery course At this time, patient is informed that he will require no further acute follow-up with us, as he appears to be recovering very well Patient was amenable to this plan Patient will follow-up as needed with any acute concerns Coding Level of Care Code Global (39160) Diagnoses Trigger finger, left middle finger M65.332
[2024-07-03 09:22] VITALS: BMI 20.7
--- OUTSIDE RECORDS SUMMARY | 2024-07-03 10:15 | XMS_ITS | Encounter Summary ---
Author Organization [employer] [facility] Address [address] [place] [address] 7 [place] [address] Care Team Providers Care Scientific Aide Name Role Phone Earlene Beck MD Primary Care Provider [phone] Reason for Visit * Reason Comments Med Refill Encounter Details Date Type Department Care Team (Late Contact Info) Description 05/12/2022 Refill [facility] MED & PEDS [address] [place] [address] Earlene Beck MD 505 [place] [address] Irritable bowel syndrome with diarrhea; Gastro-esophageal reflux [...] Department Care Team (Late Contact Info) Description 07/09/2024 10:15 AM EDT Office Visit [facility] MED & PEDS [address] [place] [address] Marie Reeves MD 505 [place] [address] 08/28/2024 10:15 AM EDT Office Visit [facility] MED [facility] PEDS [address] [place] [address] Earlene Beck MD [address] [place] [address] documented as of this encounter Visit Diagnoses Diagnosis Irritable bowel syndrome with diarrhea Irritable bowel syndrome Gastro-esophageal reflux disease without esophagitis documented in this encounter Care Teams Scientific Aide Relationship Specialty Start Date End Date Earlene Beck MD [address] [place] [address] PCP - General Family Medicine 02/26/20 documented as of this encounter
--- OUTSIDE RECORDS SUMMARY | 2024-07-03 10:15 | XMS_ITS | Encounter Summary ---
Author Organization [facility] Address [address] [place] [address] 7 [place] [address] Care Team Providers Care Custodial Foreman Name Role Phone Earlene Beck MD Primary Care Provider [phone] Reason for Visit * Reason Comments Med Refill Encounter Details Date Type Department Care Team (Late Contact Info) Description 05/12/2022 Refill [facility] MED & PEDS [address] [place] [address] Earlene Beck MD 505 [place] [address] Irritable bowel syndrome with diarrhea; Type 2 diabetes mellitus without complications ([facility]) Social History Tobacco Use Types Packs/Day Years [...] Description 07/09/2024 10:15 AM EDT Office Visit [facility] MED & PEDS [address] [place] [address] Marie Reeves MD 505 [place] [address] 08/28/2024 10:15 AM EDT Office Visit [facility] MED [facility] PEDS [address] [place] [address] Earlene Beck MD [address] [place] [address] documented as of this encounter Visit Diagnoses Diagnosis Irritable bowel syndrome with diarrhea Irritable bowel syndrome Type 2 diabetes mellitus without complications (CMS/HCC) documented in this encounter Care Teams Custodial Foreman Relationship Specialty Start Date End Date Earlene Beck MD [address] [place] [address] PCP - General Family Medicine 02/26/20 documented as of this encounter
--- OUTSIDE RECORDS SUMMARY | 2024-07-03 10:16 | XMS_ITS | Encounter Summary ---
Author Organization [facility] Address [address] [place] [address] 7 [place] [address] Care Team Providers Care Dike Supervisor Name Role Phone Earlene Beck MD Primary Care Provider [phone] Encounter Details Date Type Department Care Team (Latest Contact Info) Description 05/09/2018 Abstract [facility] CONVERSIONS Dental, Provider, DDS Social History [...] Upcoming Encounters Date Type Department Care Team ( st Contact Info) Description 07/09/2024 10:15 AM EDT Office Visit [facility] MED & PEDS [address] [place] [address] Marie Reeves MD 505 [place] [address] 08/28/2024 10:15 AM EDT Office Visit [facility] MED & PEDS [address] [place] [address] Earlene Beck MD 505 [place] [address] documented as of this encounter Visit Diagnoses Not on filedocumented in this encounter Care Teams Dike Supervisor Relationship Specialty Start Date End Date Earlene Beck MD [address] [place] [address], [place] [address] PCP - General Family Medicine 02/26/20 documented as of this encounter
--- OUTSIDE RECORDS SUMMARY | 2024-07-03 10:16 | XMS_ITS | Data Portability ---
Author Organization [employer] Address [address] [place] [phone] Care Team Providers Care Doctor Of Osteopathy Name Role Phone [facility] Referring Provider [facility] PRIMARY [facility] Referring Provider Assessment Encounter Date Assessment Date Assessment LastModified by Organization Details LastModified Time 08/23/2022 08/23/2022 I have reviewed and agree with the Assessment and Plan as documented by the Pulpwood Cutter. I provided real-time medical direction via phone [...] [id number] Theodore Yun MD Main - [facility] [address] [place] [phone] 08/23/2022 13:24:48 08/25/2022 11:38:02 Cough 52607693 R05.9 Health Concerns Section Related Observation LastModified by Organization Detai ls LastModified Time None Recorded Concern Status LastModified by Organization Details LastModified Time None Recorded Advance Directives Directive None Recorded Payers Encounter Date Sequence Insurance Name Policy Number Policy Ford Covered Member ID Ford Member ID Guarantor Name 08/23/2022 1 [facility] - DOS PRIOR TO 2022 - DUAL ELIGIBLE (MEDICARE REPLACEMENT/ADV ANTAGE - HMO) Aravind Mosqueda [id number] Aravind Mosqueda Notes Date Note Type Note [...] .................. .................. .................. .................. .................. .................. ............... [employer] C[employer] Note From Jory Yoon: Community [employer] Cutter Earlene Yoon SC6 dispatched to a [facility] for a 57 yom C/O [...] ............... Disposition: Fulfilled Theodore Yun MD [address] [facility],[address], [place], [address], [email or web address] 08/23/2022 17:10:22
--- OUTSIDE RECORDS SUMMARY | 2024-07-03 10:16 | XMS_ITS | Encounter Summary ---
Author Organization [employer] [facility] Address [address] [place] [address] 7 [place] [address] Care Team Providers Care Bow Maker Custom Name Role Phone Earlene Beck MD Primary Care Provider [phone] Reason for Visit * Reason Comments Med Refill Encounter Details Date Type Department Care Team (Late Contact Info) Description 01/07/2023 Refill [facility] MED & PEDS [address] [place] [address] Marie Reeves MD 505 [place] [address] Osteoarthritis of multiple joints, unspecified osteoarthritis type [...] Description 07/09/2024 10:15 AM EDT Office Visit [facility] CHC MED & PEDS [address] [place] [address] Marie Reeves MD 505 [place] [address] 08/28/2024 10:15 AM EDT Office Visit [facility] MED [facility]EDS [address] [place] [address] Earlene Beck MD [address] [place] [address] documented as of this encounter Visit Diagnoses Diagnosis Osteoarthritis of multiple joints, unspecified osteoarthritis type documented in this encounter Care Teams Bow Maker Custom Relationship Specialty Start Date End Date Earlene Beck MD [address] [place] [address] PCP - General Family Medicine 02/26/20 documented as of this encounter
--- OUTSIDE RECORDS SUMMARY | 2024-07-03 10:16 | XMS_ITS | Encounter Summary ---
Author Organization [employer] Address [address] 7[address] [place] [address] Care Team Providers Care Program Instructor Name Role Phone Earlene Beck MD Primary Care Provider [phone] Encounter Details Date Type Department Care Team ([facility] st Contact Info) Description 04/29/2024 Orders Only [facility] MED & PEDS [address] [place] [address] ProviderKat MD Social History Tobacco Use Types [...] Care Team (Late st Contact Info) Description 07/09/2024 10:15 AM EDT Office Visit [facility] MED & PEDS 505 [place] [address] Marie Reeves MD 505 [place] [address] 08/28/2024 10:15 AM EDT Office Visit [facility] MED & PEDS [address] [place], [place] [phone] Earlene Beck MD 505 [place] [address] documented as of this encounter Procedures Procedure Name Priority Date/Time Associated Diagnosis Comments HEMOGLOBIN A1C Routine 04/10/2024 9:26 AM EST documented in this encounter Results * Hemoglobin A1c (04/10/2024 9:26 AM EST) Blood Venous blood specimen / Unknown us Historical Provider LAB BLOOD ORDERABLES Yasmeen l Result documented in this encounter Visit Diagnoses Not on filedocumented in this encounter Care Teams Program Instructor Relationship Specialty Start Date End Date Earlene Beck MD [address] [place] [address] PCP - General Family Medicine 02/26/20 documented as of this encounter
--- OUTSIDE RECORDS SUMMARY | 2024-07-03 10:16 | XMS_ITS | Clinical Summary ---
Author Organization [address] [facility] Address [address] [place] [address] Phone Care Team Providers Care Health And Safety Consultant Name Role Phone Earlene Beck MD Primary Care Provider [phone] Allergies Active Allergy Reactions Criticality Noted Date Comments Naproxen 03/25/2024 Medications ciclopirox (LOPROX) 0.77 % gel Apply topically 2 (two) times a day. 45 g 5 08/29/19 25 Active clotrimazole (LOTRIMIN) 1 % cream Apply topically 2 (two) times a day. 30 g 3 5 06/30/19 25 Active Problems Problem Noted Date Diagnosed Date Diabetic neuropathy, type II diabetes mellitus 1 05/18/2023 Long-term insulin use in type 2 diabetes 024 Seizure 03/18/2024 COPD (chronic obstructive pulmonary disease) Encounters Date Type Department Care Team Description 05/30/2024 9:30 AM EST Office Visit Orthopedic Surgery [facility] [address] [facility] [address] [place] [phone] Oracio Smalls, DPM Dermatophytosis of nail (Primary Dx); Diabetic mononeuropathy simplex (CMS/HCC); Tinea pedis of both feet from Last 3 Months Social History Tobacco [...] PM EDT Office Visit [facility] [place] [address] [phone] Oracio Smalls, DPM [address] [address] Health Maintenance Due Date Last Done Comments [...] MMR Vaccines Aged Out 01/29/2018, 02/10/1998 No guillermo nger eligible based on patient's age to [...] patient's age to complete this topic Insurance [employer] MEDICARE Member Subscriber Plan / Payer (Ef fective 2016-Present) Name:Aravind Mosqueda Relation to Subscriber:Self Name:Aravind Mosqueda Payer ID:[id number] Group ID:[id number] Type:Not on file Address: [facility] [place] [address] Care Teams Health And Safety Consultant Relationship Specialty Start Date End Date Earlene Beck MD [address] [place] [address] PCP - General 12/27/23
--- OUTSIDE RECORDS SUMMARY | 2024-07-03 10:16 | XMS_ITS | Encounter Summary ---
Author Organization [employer] Address [address] 7[address] [place] [address] Care Team Providers Care Historian Research Assistant Name Role Phone Earlene Beck MD Primary Care Provider [phone] Reason for Visit * Reason Onset Date Comments Lab Orders 02/22/2024 Encounter Details Date Type Department Care Team ([facility] st Contact Info) Description 02/22/[address] [facility] MEDICINE [address] [place] [address] Earlene Beck MD [address] [place] [address] Lab Orders Social History Tobacco Use Types [...] Description 07/09/2024 10:15 AM EDT Office Visit [facility] MED & PEDS [address] [place] [address] Marie Reeves MD 505 [place] [address] 08/28/2024 10:15 AM EDT Office Visit [facility] MED & PEDS [address] [place] [address] Earlene Beck MD 505 [place] [address] documented as of this encounter Visit Diagnoses Not on filedocumented in this encounter Care Teams Historian Research Assistant Relationship Specialty Start Date End Date Earlene Beck MD [address] [place] [address] PCP - General Family Medicine 02/26/20 documented as of this encounter
--- OUTSIDE RECORDS SUMMARY | 2024-07-03 10:16 | XMS_ITS | Encounter Summary ---
Author Organization [employer] Address [address] [facility] 7t [place] [address] Care Team Providers Care Custodian Supervisor Name Role Phone Earlene Beck MD Primary Care Provider [phone] Reason for Visit * Reason Comments Med Refill Encounter Details Date Type Department Care Team ([facility] st Contact Info) Description 05/31/2024 Refill [facility] CHC MED & PEDS [address] [place], [place] [phone] Earlene Beck MD [address] [place] [address] Osteoarthritis of multiple joints, unspecified osteoarthritis type; [...] t he electric, gas, oil or water [employer] threatened to shut off services in your [...] Description 07/09/2024 10:15 AM EDT Office Visit [facility] MED & PEDS [address] [place] [address] Marie Reeves MD 505 [place] [address] 08/28/2024 10:15 AM EDT Office Visit [facility] MED & PEDS [address] [place] [address] Earlene Beck MD [address] [place] [address] documented as of this encounter Visit Diagnoses Diagnosis Osteoarthritis of multiple joints, unspecified osteoarthritis type Irritable bowel syndrome with diarrhea Irritable bowel syndrome documented in this encounter Care Teams Custodian Supervisor Relationship Specialty Start Date End Date Earlene Beck MD [address] [place] [address] PCP - General Family Medicine 02/26/20 documented as of this encounter
--- OUTSIDE RECORDS SUMMARY | 2024-07-03 10:16 | XMS_ITS | Encounter Summary ---
Author Organization [employer] Address [address] 7[address] [place] [address] Care Team Providers Care Plant Clerk Name Role Phone Earlene Beck MD Primary Care Provider [phone] Reason for Visit * Reason Onset Date Comments Pre-op Exam 06/14/2024 Encounter Details Date Type Department Care Team ([facility] st Contact Info) Description 06/14/2024 Telephone [facility] MEDICINE [address] [place] [address] Earlene Beck MD [address] [place] [address] Pre-op Exam Social History Tobacco Use Types [...] t he electric, gas, oil or water [employer] threatened to shut off services in your home? No 02/13/2023 Sex and Gender Information Value Date Recorded Sex Assigned at Male 02/28/2022 10:15 AM EDT Legal Sex Male 10:15 AM EDT Gender Identity Male 02/28/2022 10:15 AM EDT Sexual Orientation Choose not to disclose 2021 10:15 AM EDT documented as of this encounter Miscellaneous Notes * Telephone Encounter - Jenaro Turner - 06/21/2024 10:43 AM EST Pt agreed to pre-op 07/09/[address] Reeves Facility also aware * Telephone Encounter - Karen Zavala - 06/14/2024 9:24 AM EST Date of Surgery: 07/31 Surgical procedure being done: Right Rotator Cuff Surgery Type of anesthesia: general anesthesia Lab needed: Yes EKG: No Surgeon's name: Tomy Vee Facility name: [facility] Surgeon's office number: [phone] Surgeon's office fax number: [phone] Contact name (person you spoke with): Mey Last office note from surgeon requested: Yes Send Message to Sangeetha Perez and Jenaro Turner documented in this encounter Plan of Treatment Upcoming Encounters Date Type Department Care Team (Late st Contact Info) Description 07/09/2024 10:15 AM EDT Office Visit [facility] MED & PEDS [address] [place] [address] Marie Reeves MD 505 [place] [address] 08/28/2024 10:15 AM EDT Office Visit [facility] MED & PEDS [address] [place] [address] Earlene Beck MD 505 [place] [address] documented as of this encounter Visit Diagnoses Not on filedocumented in this encounter Care Teams Plant Clerk Relationship Specialty Start Date End Date Earlene Beck MD [address] [place] [address] PCP - General Family Medicine 02/26/20 documented as of this encounter
--- OUTSIDE RECORDS SUMMARY | 2024-07-03 10:16 | XMS_ITS | Clinical Summary ---
Author Organization [employer] Address [address] [place] [address] 7t [place] [address] Care Team Providers Care Insurance Collector Name Role Phone Earlene Beck MD Primary Care Provider [phone] Allergies Active Allergy Reactions Criticality Noted Date [...] CHEW 90 tablet 11 023 Active Umeclidinium [place] (Incruse Ellipta) 62.5 MCG/ACT aerosol powderIndications :Chronic obstructive pulmonary disease, unspecified COPD type (CMS/HCC) INHALE 1 PUFF DAILY AT THE SAME TIME EACH DAY IN THE MORNING 1 each 3 023 Active ammonium lactate (Lac-Hydrin) 12 % lotion APPLY ON FEET ONCE DAILY 226 g 11 023 Active Blood Glucose Monitoring Suppl (XhaleStyle [place] Lite) w/Device kit 023 Active Viberzi 75 [...] not taking.Reported on 04/12/2024 Continuous Blood Gluc Ground Crew Lines Person (FreeStyle Hetal 2 [place]) deviceIndications :Type 2 diabetes mellitus with diabetic neuropathy, with long-term current use of insulin ([facility]) Use to monitor interstitial glucose [...] neuropathy, with long-term current use of insulin ([facility]) TEST BLOOD SUGAR UP TO THREE TIMES DAILY DIRECTED 100 strip Active Easy Touch Lancets 33G/Twist miscIndications:T ype 2 diabetes mellitus with diabetic neuropathy, with long-term current use of insulin ([facility]) TEST BLOOD SUGAR THREE TIMES [...] BEDTIME 4.5 mL 3 Active Continuous Glucose Ground Crew Lines Person (FreeStyle Hetal 2 [place]) device Scan sensor every 8 hours 1 [...] (10/31/2022 9:41 AM EDT): Patient seen in [facility] ED on 10/07/22 for abdominal pain with [...] mellitus without complication 12/26/19 18 10/04/2022 Encounters Date Type Department Care Team Description 06/14/2024 Telephone [facility] [address] [place] [address] Earlene Beck MD Pre-op Exam 05/31/2024 Refill [facility] [address] [place] [address] Earlene Beck MD Osteoarthritis of multiple joints, unspecified osteoarthritis type; Irritable bowel syndrome with diarrhea 05/02/2024 Refill [facility] MED & PEDS [address] [place] [address] Earlene Beck MD Chronic obstructive pulmonary disease, unspecified COPD type (CMS/HCC) 04/29/2024 Orders Only [facility] [address] [place] [address] Kat Andino MD 04/15/2024 Telephone [facility] [address] [place] [address] Mera Cordova, retail property manager 04/12/2024 2:30 PM EST Office Visit [facility] OPT[facility] [address] [place] [address] Ralph, Clarisa, OD Diabetes type 2, no ocular involvement ([facility]/HCC) (Primary Dx); Chorioretinal scar, left eye; Early cataracts, bilateral; Punctal stenosis, acquired, left; Presbyopia 04/12/2024 Travel 04/12/2024 Telephone [facility] MED & PEDS [address] [place] [address] Earlene Beck MD 04/11/2024 8:30 AM EST Office Visit [facility] MED & PEDS [address] [place] [address] Earlene Beck MD Chronic obstructive pulmonary disease, unspecified COPD type (CMS/HCC) (Primary Dx); Type 2 diabetes mellitus with diabetic neuropathy, with long-term current use of insulin ([facility]/HCC); Encounter for immunization; Polyneuropathy associated with underlying disease (CMS/HCC) 04/11/2024 Travel 04/07/2024 Refill [facility] [address] [place] [address] Earlene Beck MD Osteoarthritis of multiple joints, unspecified osteoarthritis type; Irritable bowel syndrome with diarrhea 04/05/2024 Refill [facility] MED & PEDS [address] [place] [address] Earlene Beck MD from Last 3 Months Immunizations Name Administration Dates Next Due DTaP 12/14/2010 Hep B, adult 09/12/2018,01/29/2018,01/01/2013 Influenza injectable quadriv alent IIV4 with preservative 01/29/2018,01/19/2017,02/18/2015 Influenza injectable quadriv alent preservative free 02/08/2023,02/24/2022,01/20/2021,02/04,01/23/2019,05/12/2016 Influenza, IIV3, injectable 01/19/2011 Influenza, Split (incl. delvis fied surface antigen) 01/01/2013,03/02/2012 Influenza, seasonal, injecta ble, preservative free 01/11/2024 MMR 01/29/2018,02/10/1998 Moderna Covid-19 Vaccine 12+ 08/31/2020,07/09/19 Pfizer Covid-19 Vaccine 12+ 03/12/2021 Pneumococcal Conjugate [...] your housing situation today? I have gianni raven 02/13/[address] you li [...] Description 07/09/2024 10:15 AM EDT Office Visit [facility] MED & PEDS [address] [place] [address] Marie Reeves MD [address] [place] [address] 08/28/2024 10:15 AM EDT Office Visit [facility] MED & PEDS [address] [place] [address] Earlene Beck MD [address] [place] [address] Health Maintenance Due Date Last Done Comments [...] neuropathy, with long-term current use of insulin ([facility]) HEPATIC FUNCTION PANEL Routine 04/12/2024 9:12 AM EST Type 2 diabetes mellitus with diabetic neuropathy, with long-term current use of insulin ([facility]) BASIC METABOLIC PANEL Routine 04/12/2024 9:12 AM EST Type 2 diabetes mellitus with diabetic neuropathy, with long-term current use of insulin ([facility]) POCT GLUCOSE Routine 04/11/2024 8:54 AM EST Type 2 diabetes mellitus with diabetic neuropathy, with long-term current use of insulin ([facility]) HEMOGLOBIN A1C Routine 04/10/2024 9:26 AM EST from Last 3 Months Results * (ABNORMAL) Hepatic Function Panel (04/12/2024 9:12 AM EST) Bilirubin, Total 0.3 0.0 - 1.0 mg/dL [facility] Bilirubin, Direct 0.2 0.0 - 0.5 mg/dL [facility] Aspartate Amino Transferase 22 5 - 37 U/L [facility] Alanine Aminotransferase 11 0 - 40 U/L [facility] Total Protein 6.2(L) 6.5 - 8.0 g/dL [facility] Albumin Level 3.7 3.5 - 5.0 g/dL [facility] Alkaline Phosphatase 71 39 - 117 U/L [facility] Blood Venous blood specimen / Unknown 04/12/2024 9:12 AM EST 04/12/2024 2:18 PM EST Earlene Beck MD LAB BLOOD ORDERABLES Final Resul t Performing Organization Address City/[facility]/ZIP Co de Phone Number [facility] [address] [place] [address] [phone] * (ABNORMAL) Lipid Panel, Standard (04/12/2024 9:12 AM EST) Triglycerides 54 <150 mg/dL [facility] Comment:Desirable Triglyceri de: less than 150 mg/dLBorderline High Triglyceride 150-199 mg/dLHigh Triglyceride: 200-499 mg/dLVery High Triglyceride: greater than or equal to 5OO mg/dL Cholesterol 98 <200 mg/dL [facility] Comment:Desirable Cholestero l: less than 200 mg/dLBorderline High Cholesterol: 200-239 mg/dLHigh Cholesterol: greater than 239 mg/dL LDL Cholesterol Calculated 55 <100 mg/dL [facility] Comment:Desirable LDL: less than 100 mg/dLNear Optimal/Above Optimal LDL: 110- 129 mg/dLBorderline High LDL: 130-159 mg/dLHigh LDL: 160-189 mg/dLVery High LDL: greater than or equal to 190 mg/dL HDL Cholesterol 33(L) >40 mg/dL [facility] Comment:Desirable HDL: great er than 40 mg/dL Note: This HDL assay may give artificially low results in patients with liver disease. Blood Venous blood specimen / Unknown 04/12/2024 9:12 AM EST 04/12/2024 2:18 PM EST Earlene Beck MD LAB BLOOD ORDERABLES Final Resul t Performing Organization Address City/[facility]/ZIP Co de Phone Number [facility] [address] [place] [phone] [phone] * (ABNORMAL) Basic Metabolic Panel (04/12/2024 9:12 AM EST) Sodium 141 135 - 145 mmol/L [facility] Potassium 5.0 3.3 - 5.1 mmol/L [facility] Chloride 105 96 - 108 mmol/L [facility] Carbon Dioxide 30(H) 22 - 29 mmol/L [facility] Anion Gap 11(L) 12 - 20 [facility] Urea Nitrogen (BUN) 13 9 - 16 mg/dL [facility] Creatinine, Serum 0.99 0.5 - 1.4 mg/dL [facility] Estimated Glomerular Filt Rate >60 [facility] Comment:Chronic Kidney Disea se: Estimated GFR < 60 mL/min/1.56e9Ketred Kidney Disease: Estimated GFR < 15 mL/min/1.73m2 Glucose 227(H) 60 - 115 mg/dL [facility] Calcium 8.8 8.4 - 10.2 mg/dL [facility] Blood Venous blood specimen / Unknown 04/12/2024 9:12 AM EST 04/12/2024 2:18 PM EST Earlene Beck MD LAB BLOOD ORDERABLES Final Resul t [facility] [address] [place] [phone] * (ABNORMAL) POCT Glucose (04/11/2024 8:54 AM EST) [facility] Glucose Blood, POC 399(A) 60 - 200 mg/dL QC Media Lot # [id number] Lot# Expiration Date Blood Capillary blood specimen / Unknown 04/11/2024 8:54 AM EST Earlene Beck MD POINT OF CARE TEST ENTER/EDIT OR DERABLES Final Result * Hemoglobin A1c (04/10/2024 9:26 AM EST) Blood Venous blood specimen / Unknown Kat Andino MD LAB BLOOD ORDERABLES Yasmeen l Result from Last 3 Months Insurance Care Teams Insurance Collector Relationship Specialty Start Date End Date Earlene Beck MD [address] [place] [phone] PCP - General Family Medicine 02/26/20
--- OUTSIDE RECORDS SUMMARY | 2024-07-03 10:16 | XMS_ITS | Encounter Summary ---
Author Organization [employer] [facility] Address [address] [place] [address] 7 [place] [address] Care Team Providers Care Instrumentation Engineer Name Role Phone Earlene Beck MD Primary Care Provider [phone] Encounter Details Date Type Department Care Team (Latest Contact Info) Description 06/08/2020 Abstract [facility] CONVERSIONS Dental, Provider, DDS Social [...] Description 07/09/2024 10:15 AM EDT Office Visit [facility] MED & PEDS [address] [place] [address] Marie Reeves MD [address] [place] [address] 08/28/2024 10:15 AM EDT Office Visit [facility] MED & PEDS [address] [place] [address] Earlene Beck MD [address] [place] [address] documented as of this encounter Visit Diagnoses Not on filedocumented in this encounter Care Teams Instrumentation Engineer Relationship Specialty Start Date End Date Earlene Beck MD [address] [place] [address] PCP - General Family Medicine 02/26/20 documented as of this encounter
--- OUTSIDE RECORDS SUMMARY | 2024-07-03 10:16 | XMS_ITS | Encounter Summary ---
Author Organization [employer] [facility] Address [address] [place] [address] 7 [place] [address] Care Team Providers Care Oven Attendant Name Role Phone Earlene Beck MD Primary Care Provider [phone] Encounter Details Date Type Department Care Team (Latest Contact Info) Description 11/09/2018 Abstract [facility] CONVERSIONS Dental, Provider, DDS Social [...] 07/09/2024 10:15 AM EDT Office Visit [facility] [address] [place] [address] Marie Reeves MD [address] [place] [address] 08/28/2024 10:15 AM EDT Office Visit [facility] [address] [place] [address] Earlene Beck MD [address] [place] [address] documented as of this encounter Visit Diagnoses Not on filedocumented in this encounter Care Teams Oven Attendant Relationship Specialty Start Date End Date Earlene Beck MD [address] [place] [address], [place] [address] PCP - General Family Medicine 02/26/20 documented as of this encounter
--- OUTSIDE RECORDS SUMMARY | 2024-07-03 10:16 | XMS_ITS | Encounter Summary ---
Author Organization [email or web address] [facility] Address [address] [place] [address] 7 [place] [address] Care Team Providers Care Tiltrotor Crew Chief Name Role Phone Earlene Beck MD Primary Care Provider [phone] Reason for Visit * Reason Comments Med Refill Encounter Details Date Type Department Care Team (Late Contact Info) Description 01/10/2023 Refill [facility] MED & PEDS [address] [place] [address] Marie Reeves MD [address] [place] [address] Irritable bowel syndrome with diarrhea Social History [...] Office Visit [facility] MED & PEDS [address] [place] [address] Marie Reeves MD [address] [place] [address] 08/28/2024 10:15 AM EDT Office Visit [facility] CHC MED & PEDS [address] [place] [address] Earlene Beck MD [address] [place] [address] documented as of this encounter Visit Diagnoses Diagnosis Irritable bowel syndrome with diarrhea Irritable bowel syndrome documented in this encounter Care Teams Tiltrotor Crew Chief Relationship Specialty Start Date End Date Earlene Beck MD [address] [place] [phone] PCP - General Family Medicine 02/26/20 documented as of this encounter
--- OUTSIDE RECORDS SUMMARY | 2024-07-03 10:16 | XMS_ITS | Encounter Summary ---
Author Organization [employer] Address [address] [facility] 7t [place] [address] Care Team Providers Care Morning Nanny Name Role Phone Earlene Beck MD Primary Care Provider [phone] Reason for Visit * Reason Comments Med Refill Encounter Details Date Type Department Care Team ([facility] st Contact Info) Description 01/04/2024 Refill [facility] MED & PEDS [address] [place], [place] [phone] Emelina Carmona MD [address] [place] [address] Social History Tobacco Use Types Packs/Day Years [...] Description 07/09/2024 10:15 AM EDT Office Visit [facility] MED & PEDS [address] [place] [address] Marie Reeves MD [address] [place] [address] 08/28/2024 10:15 AM EDT Office Visit [facility] MED & PEDS [address] [place] [address] Earlene Beck MD [address] [place] [address] documented as of this encounter Visit Diagnoses Not on filedocumented in this encounter Care Teams Morning Nanny Relationship Specialty Start Date End Date Earlene Beck MD [address] [place] [phone] PCP - General Family Medicine 02/26/20 documented as of this encounter
== END 2024-07-03 09:36 | disposition home or self-care (01) ==
PROVIDERS: PCP Student in an Organized Health Care Education/Training Program
DX: M65.332 Trigger finger, left middle finger (principal)
CPT/HCPCS: 99024

== ENCOUNTER → 2024-07-03 09:15 | Outpatient (BNVA) | payer OTHER, SELFPAY | PROVIDERS: PCP Student in an Organized Health Care Education/Training Program | DX: Z47.89 Encounter for other orthopedic aftercare (principal); Z98.890 Other specified postprocedural states | CPT/HCPCS: 99212 ==

== ENCOUNTER 2024-07-09 11:16 | Outpatient (REF) | payer OTHER, SELFPAY ==
--- OUTSIDE RECORDS SUMMARY | 2024-07-09 13:58 | XMS_ITS | Encounter Summary ---
Author Organization [employer] [facility] Address [address] [place] [address] 7t [place] [address] Care Team Providers Care Supervisor Furnace Process Name Role Phone Earlene Beck MD Primary Care Provider [phone] Reason for Visit * Reason Comments Med Refill Encounter Details Date Type Department Care Team (Late st Contact Info) Description 05/12/2022 Refill [facility] MED & PEDS [address] [place] [address] Earlene Beck MD [address] [place] [address] Irritable bowel syndrome with diarrhea; Type 2 [...] Description 08/28/2024 10:15 AM EDT Office Visit [facility] MED & PEDS [address] [place] [address] Earlene Beck MD [address] [place] [address] documented as of this encounter Visit Diagnoses Diagnosis Irritable bowel syndrome with diarrhea Irritable bowel syndrome Type 2 diabetes mellitus without complications (CMS/HCC) documented in this encounter Care Teams Supervisor Furnace Process Relationship Specialty Start Date End Date Earlene Beck MD [address] [place] [phone] PCP - General Family Medicine 02/26/20 documented as of this encounter
--- OUTSIDE RECORDS SUMMARY | 2024-07-09 13:58 | XMS_ITS | Encounter Summary ---
Author Organization [employer] Address [address] [facility] 7t [place] [address] Care Team Providers Care Inverter And Clipper Name Role Phone Earlene Beck MD Primary Care Provider [phone] Reason for Visit * Reason Comments Pre-op Exam Encounter Details Date Type Department Care Team ([facility] st Contact Info) Description 07/09/2024 10:15 AM EDT Office Visit [facility] CH[facility] MED & PEDS [address] [place], [place] [phone] Marie Reeves MD [address] [place] [address] Pre-op evaluation (Primary Dx); Type 2 diabetes mellitus with diabetic neuropathy, with long-term current use of insulin ([facility]) Social History Tobacco Use Types Packs/Day Years [...] AM EDT documented as of this encounter Last Filed Vital Signs Vital Sign Reading Time Taken Comments Blood Pressure 139/84 07/09/2024 10:32 AM EDT Pulse 58 07/09/2024 10:32 AM EDT Temperature 36.6 ??C (97.8 ??F) 07/09/2024 10:32 AM E DT Respiratory Rate 16 07/09/2024 10:32 AM EDT Oxygen Saturation 98% 07/09/2024 10:32 AM EDT Inhaled Oxygen Concentration - - Weight 60.8 kg (134 lb) 07/09/2024 10:32 AM EDT Height 175.3 cm (5' 9 ) 07/09/2024 10:32 AM EDT Body Mass Index 19.79 07/09/2024 10:32 AM EDT documented in this encounter Plan of Treatment Upcoming Encounters Date Type Department Care Team (Late st Contact Info) Description 08/28/2024 10:15 AM EDT Office Visit [facility] MED & PEDS [address] [place] [address] Earlene Beck MD [address] [place] [address] Scheduled Orders Name Type Priority Associated Diagnoses Orde r Schedule Basic Metabolic Panel Lab Routine Pre-op evaluation Expected: 07/09/2024 (Approximate), Expires: 07/09/2025 CBC auto differential Lab Routine Pre-op evaluation Expected: 07/09/2024 (Approximate), Expires: 07/09/2025 documented as of this encounter Procedures Procedure Name Priority Date/Time Associated Diagnosis Comments ECG 12-LEAD Routine 07/09/2024 1:01 PM EDT Pre-op evaluation POCT GLYCATED HEMOGLOBIN, TOTAL Routine 07/09/2024 10:34 AM EDT Type 2 diabetes mellitus with diabetic neuropathy, with long-term current use of insulin ([facility]) POCT GLUCOSE Routine 07/09/2024 10:33 AM EDT Type 2 diabetes mellitus with diabetic neuropathy, with long-term current use of insulin ([facility]) documented in this encounter Results * ECG 12 lead (07/09/2024 1:01 PM EDT) Narrative Marie Reeves MD - 07/09/2024 1:01 PM EDT Heart rate 58 bpm. ??Joaquin 51 degrees. ??Normal sinus rhythm. ??No sign of left atrial enlargement or right atrial enlargement. ??No sign of hypertrophy. ??No ST elevation or ST depression. Normal ECG. Marie Reeves MD ECG ORDERABLES Final Resul t * (ABNORMAL) POCT A1C (07/09/2024 10:34 AM EDT) Hemoglobin A1C 10.8(A) 4.0 - 6.0 % QC Media Lot # Comment:[id number] Lot# Expiration Date Comment: Blood 07/09/2024 10:3 4 AM EDT Marie Reeves MD POINT OF CARE TEST ENTER/ED IT ORDERABLES Final Result * (ABNORMAL) POCT glucose manually resulted (07/09/2024 10:33 AM EDT) Glucose Blood, POC 278(A) 60 - 200 mg/dL QC Media Lot # Comment:[id number] Lot# Expiration Date Comment:10/31/2024 Blood Capillary blood specimen / Unknown 07/09/2024 10:33 AM EDT Marie Reeves MD POINT OF CARE TEST ENTER/ED IT ORDERABLES Final Result documented in this encounter Visit Diagnoses Diagnosis Pre-op evaluation- Primary Type 2 diabetes mellitus with diabetic neuropathy, with long-term current use of insulin ([facility]) documented in this encounter Care Teams Inverter And Clipper Relationship Specialty Start Date End Date Earlene Beck MD [address] [place] [address] PCP - General Family Medicine 02/26/20 documented as of this encounter
--- OUTSIDE RECORDS SUMMARY | 2024-07-09 13:58 | XMS_ITS | Encounter Summary ---
Author Organization [employer] [facility] Address [address] [place] [address] 7t [place] [address] Care Team Providers Care Automobile Locator Name Role Phone Earlene Beck MD Primary Care Provider [phone] Reason for Visit * Reason Comments Med Refill Encounter Details Date Type Department Care Team (Late Contact Info) Description 05/12/2022 Refill [facility] MED & PEDS [address] [place] [address] Earlene Beck MD [address] [place] [address] Irritable bowel syndrome with diarrhea; Gastro-esophageal reflux [...] Description 08/28/2024 10:15 AM EDT Office Visit [facility] MED [facility] PEDS [address] [place] [address] Earlene Beck MD [address] [place] [address] documented as of this encounter Visit Diagnoses Diagnosis Irritable bowel syndrome with diarrhea Irritable bowel syndrome Gastro-esophageal reflux disease without esophagitis documented in this encounter Care Teams Automobile Locator Relationship Specialty Start Date End Date Earlene Beck MD [address] [place] [address] PCP - General Family Medicine 02/26/20 documented as of this encounter
--- OUTSIDE RECORDS SUMMARY | 2024-07-09 13:58 | XMS_ITS | Encounter Summary ---
Author Organization [employer] Address [address] [facility] [address] [place] [address] Care Team Providers Care Dining Service Supervisor Name Role Phone Earlene Beck MD Primary Care Provider [phone] Encounter Details Date Type Department Care Team (Latest Contact Info) Description 07/09/2024 Travel Social History Tobacco Use Types Packs/Day Years [...] [facility] [address] [place] [address] Earlene Beck MD [address] [place] [address] documented as of this encounter Visit Diagnoses Not on filedocumented in this encounter Care Teams Dining Service Supervisor Relationship Specialty Start Date End Date Earlene Beck MD [address] [place] [phone] PCP - General Family Medicine 02/26/20 documented as of this encounter
--- OUTSIDE RECORDS SUMMARY | 2024-07-09 13:58 | XMS_ITS | Clinical Summary ---
Author Organization [employer] Address [address] [place] [address] 7t [place] [address] Care Team Providers Care Mosquito Sprayer Name Role Phone Earlene Beck MD Primary Care Provider [phone] Allergies Active Allergy Reactions Criticality Noted Date [...] 90 tablet 11 07/14/19 23 Active Umeclidinium Magnolia (Incruse Ellipta) 62.5 MCG/ACT aerosol powderIndications: Chronic obstructive pulmonary disease, unspecified COPD type (CMS/HCC) INHALE 1 PUFF DAILY AT THE SAME TIME EACH DAY IN THE MORNING 1 each 3 08/02/19 23 Active ammonium lactate (Lac-Hydrin) 12 % lotion APPLY ON FEET ONCE DAILY 226 g 11 09/02/19 23 Active Blood Glucose Monitoring Suppl (ResolutionTube Billings Lite) w/Device kit 10/06/19 23 Active Viberzi [...] not taking.Reported on 04/12/2024 Continuous Blood Gluc Manager Quality Compliance (FreeStyle Hetal 2 Coplay) deviceIndications: Type 2 diabetes mellitus with diabetic neuropathy, with long-term current use of insulin ([facility]) Use to monitor interstitial glucose 8 times [...] neuropathy, with long-term current use of insulin ([facility]) TEST BLOOD SUGAR UP TO THREE TIMES DAILY DIRECTED 100 strip 10/23/19 24 Active Easy Touch Lancets 33G/Twist miscIndications:Ty pe 2 diabetes mellitus with diabetic neuropathy, with long-term current use of insulin ([facility]) TEST BLOOD SUGAR THREE TIMES DAILY 100 [...] MG TABLET 30 tablet 12/25/19 24 Active oxybutynin (Ditropan) 5 MG tablet TAKE ONE TABLET TWICE DAILY IN THE MORNING AND AT BEDTIME 60 tablet 11 12/25/19 24 Active Tourika SoloStar 300 UNIT/ML injection INJECT 20 UNITS SUBCUTANEOUSLY AT BEDTIME 4.5 mL 3 12/25/19 24 Active Continuous Glucose Manager Quality Compliance (FreeStyle Hetal 2 Coplay) device Scan sensor every 8 hours 1 [...] cholecalciferol VITAMIN D (Vitamin D-3) 50 MCG (2000 UT) capsule TAKE ONE CAPSULE EVERY MORNING 90 capsule 3 04/05/20 24 Active Farxiga 5 MG TAKE ONE TABLET EVERY MORNING 30 tablet 11 04/08/20 24 Active Continuous Glucose Sensor (FreeStyle Hetal 2 Sensor) misc USE DIRECTED AND CHANGE EVERY 14 DAYS 2 each 3 04/11/20 24 Active diclofenac (Voltaren) 75 MG EC tablet TAKE ONE TABLET TWICE DAILY NEEDED FOR PAIN 03/26/20 Active ipratropium-albute rol (Duo-Neb) 0.5-2.5 mg/3 mL nebulizer solution INHALE ONE AMPULE USING A NEBULIZER EVERY 4 TO 6 HOURS NEEDED FOR WHEEZING 03/26/20 Active Anoro Ellipta 62.5-25 MCG/ACT aerosol powder INHALE 1 PUFF ONCE DAILY. RINSE MOUTH AFTER USE 03/26/20 24 Active divalproex (Depakote) 500 MG EC tablet Take 500 mg by mouth. 02/09/20 12 Active amLODIPine (Norvasc) 2.5 MG tablet Take 2.5 mg by mouth in the morning. 08/29/20 24 Active Combivent Respimat 20-100 MCG/ACT inhalerIndications :Chronic obstructive pulmonary disease, unspecified COPD type (CMS/HCC) INHALE 1 PUFF 4 TIMES A DAY, MAY TAKE ADDITIONAL PUFFS NEEDED. (MAX 6 PUFFS PER DAY) 12 g 1 05/02/19 25 Active gabapentin (Neurontin) 800 MG tabletIndications: Osteoarthritis of multiple joints, unspecified osteoarthritis type TAKE 1 TABLET IN THE MORNING and TAKE TWO TABLETS EVERY DAY AT BEDTIME 90 tablet 1 06/05/19 25 Active atorvastatin (Lipitor) 80 MG tablet TAKE ONE TABLET EVERY NIGHT AT BEDTIME 30 tablet 5 06/05/19 25 Active dicyclomine (Bentyl) 20 MG tabletIndications: Irritable bowel syndrome with diarrhea TAKE 1 TABLET in the morning, at noon, in the evening, and at bedtime 120 tablet 1 06/05/19 25 Active cetirizine (ZyrTEC) 10 MG tablet TAKE ONE TABLET EVERY MORNING 30 tablet 5 06/05/19 25 Active Active Problems Problem Noted Date Diagnosed Date Abdominal pain 10/31/2022 Assessment & Plan (10/31/2022 9:41 AM EDT): Advised patient to call to schedule an appointment with GI Dr. Elvi Darling. Hyperkalemia 10/31/2022 Assessment & Plan (10/31/2022 9:41 AM EDT): Patient seen in [facility] ED on 10/07/22 for [...] Encounters Date Type Department Care Team Description 07/09/2024 10:15 AM EDT Office Visit [facility] [address] [place] [address] Marie Reeves MD Pre-op evaluation (Primary Dx); Type 2 diabetes mellitus with diabetic neuropathy, with long-term current use of insulin ([facility]) 07/09/2024 Travel 06/14/2024 Telephone [facility] MED[facility] [address] [place], [place] [phone] Earlene Beck MD Pre-op Exam 05/31/2024 Refill [facility] [address] [place], [place] [phone] Earlene Beck MD Osteoarthritis of multiple joints, unspecified osteoarthritis type; Irritable bowel syndrome with diarrhea 05/02/2024 Refill [facility] [address] [place], [place] [phone] Earlene Beck MD Chronic obstructive pulmonary disease, unspecified COPD type ([facility]/HCC) 04/29/2024 Orders Only [facility] [address] [place] [address] Kat Andino MD 04/15/2024 Telephone [facility] [address] [place] [address] Mera Cordova, l d rn 04/12/2024 2:30 PM EST Office Visit [facility] OPTOM[facility] [address] [place] [address] Ralph, Clarisa, OD Diabetes type 2, no ocular involvement ([facility]/HCC) (Primary Dx); Chorioretinal scar, left eye; Early cataracts, bilateral; Punctal stenosis, acquired, left; Presbyopia 04/12/2024 Travel 04/12/2024 Telephone [facility] [address] [place] [address] Earlene Beck MD 04/11/2024 8:30 AM EST Office Visit [facility] [address] [place], [place] [phone] Earlene Beck MD Chronic obstructive pulmonary disease, unspecified COPD type ([facility]/HCC) (Primary Dx); Type 2 diabetes mellitus with diabetic neuropathy, with long-term current use of insulin ([facility]); Encounter for immunization; Polyneuropathy associated with underlying disease ([facility]/HCC) 04/11/2024 Travel from Last 3 Months Immunizations Name Administration [...] Mass Index 19.79 07/09/2024 10:32 AM EDT Plan of Treatment Upcoming Encounters Date Type Department Care Team (Late st Contact Info) Description 08/28/2024 10:15 AM EDT Office Visit [facility] PEDS [address] [place] [address] Earlene Beck MD [address] [place] [address] Health Maintenance Due Date Last Done Comments CT Colonography 1965 Depression Screening 1965 FIT DNA/Cologuard 1965 FIT 1965 FOBT 1965 HIV Screening 1965 Sigmoidoscopy 1965 Alcohol/Substance Use Screening 1977 Hepatitis C Screening 1983 Diabetes: Urine Protein Screening 1984 Diabetes: Foot Exam 09/01/2023 08/31/2022, SDOH Screening 06/21/2024 06/21/2023 Diabetes: Hemoglobin A1C 10/09/2024 025, 04/10/2024, 02/26/2024, Additional history exists Colonoscopy 11/28/2024 Colorectal Cancer [...] patient's age to complete this topic Hepatitis A Vaccines Aged Out No long er eligible based on patient's age to complete [...] neuropathy, with long-term current use of insulin ([facility]) POCT GLUCOSE Routine 07/09/2024 10:33 AM EDT Type 2 diabetes mellitus with diabetic neuropathy, with long-term current use of insulin ([facility]) LIPID PANEL, STANDARD Routine 04/12/2024 9:12 AM EST Type 2 diabetes mellitus with diabetic neuropathy, with long-term current use of insulin ([facility]) HEPATIC FUNCTION PANEL Routine 04/12/2024 9:12 AM EST Type 2 diabetes mellitus with diabetic neuropathy, with long-term current use of insulin ([facility]) BASIC METABOLIC PANEL Routine 04/12/2024 9:12 AM EST Type 2 diabetes mellitus with diabetic neuropathy, with long-term current use of insulin ([facility]) POCT GLUCOSE Routine 04/11/2024 8:54 AM EST Type 2 diabetes mellitus with diabetic neuropathy, with long-term current use of insulin ([facility]) HEMOGLOBIN A1C Routine 04/10/2024 9:26 AM EST from Last 3 Months Results * ECG 12 lead (07/09/2024 1:01 PM EDT) Narrative Marie Reeves MD - 07/09/2024 1:01 PM EDT Heart rate 58 bpm. ??Twilight 51 degrees. ??Normal sinus rhythm. ??No sign of left atrial enlargement or right atrial enlargement. ??No sign of hypertrophy. ??No ST elevation or ST depression. Normal ECG. us Marie Reeves MD ECG ORDERABLES Final Resul t * (ABNORMAL) POCT A1C (07/09/2024 10:34 AM EDT) Hemoglobin A1C 10.8(A) 4.0 - 6.0 % QC Media Lot # Comment:[id number] Lot# Expiration Date Comment: Blood 07/09/2024 10:3 4 AM EDT us Marie Reeves MD POINT OF CARE TEST ENTER/ED IT ORDERABLES Final Result * (ABNORMAL) POCT glucose manually resulted (07/09/2024 10:33 AM EDT) Only the most recent of2 resultswithin the time period is included. Glucose Blood, POC 278(A) 60 - 200 mg/dL QC Media Lot # Comment:[id number] Lot# Expiration Date Comment:10/31/2024 Blood Capillary blood specimen / Unknown 07/09/2024 10:33 AM EDT us Marie Reeves MD POINT OF CARE TEST ENTER/ED IT ORDERABLES Final Result * (ABNORMAL) Hepatic Function Panel (04/12/2024 9:12 AM EST) Bilirubin, Total 0.3 0.0 - 1.0 mg/dL [facility] Bilirubin, Direct 0.2 0.0 - 0.5 mg/dL [facility] Aspartate Amino Transferase 22 5 - 37 U/L [facility] Alanine Aminotransferase 11 0 - 40 U/L [facility] Total Protein 6.2(L) 6.5 - 8.0 g/dL [facility] Albumin Level 3.7 3.5 - 5.0 g/dL [facility] Alkaline Phosphatase 71 39 - 117 U/L [facility] Blood Venous blood specimen / Unknown 04/12/2024 9:12 AM EST 04/12/2024 2:18 PM EST us Earlene Beck MD LAB BLOOD ORDERABLES Final Resul t [facility] [address] [place] [phone] * (ABNORMAL) Lipid Panel, Standard (04/12/2024 9:12 AM EST) Triglycerides 54 <150 mg/dL [facility] Comment:Desirable Triglyceri de: less than 150 mg/dLBorderline High Triglyceride 150-199 mg/dLHigh Triglyceride: 200-499 mg/dLVery High Triglyceride: greater than or equal to 5OO mg/dL Cholesterol 98 <200 mg/dL [facility] Comment:Desirable Cholestero l: less than 200 mg/dLBorderline High Cholesterol: 200-239 mg/dLHigh Cholesterol: greater than 239 mg/dL LDL Cholesterol Calculated 55 <100 mg/dL [facility] Comment:Desirable LDL: less than 100 mg/dLNear Optimal/Above Optimal LDL: 110- 129 mg/dLBorderline High LDL: 130-159 mg/dLHigh LDL: 160-189 mg/dLVery High LDL: greater than or equal to 190 mg/dL HDL Cholesterol 33(L) >40 mg/dL [facility] Comment:Desirable HDL: great er than 40 mg/dL Note: This HDL assay may give artificially low results in patients with liver disease. Blood Venous blood specimen / Unknown 04/12/2024 9:12 AM EST 04/12/2024 2:18 PM EST Earlene Beck MD LAB BLOOD ORDERABLES Final Resul t Performing Organization Address [facility] Co de Phone Number [facility] [address] [place] [phone] * (ABNORMAL) Basic Metabolic Panel (04/12/2024 9:12 AM EST) Sodium 141 135 - 145 mmol/L [facility] Potassium 5.0 3.3 - 5.1 mmol/L [facility] Chloride 105 96 - 108 mmol/L [facility] Carbon Dioxide 30(H) 22 - 29 mmol/L [facility] Anion Gap 11(L) 12 - 20 [facility] Urea Nitrogen (BUN) 13 9 - 16 mg/dL [facility] Creatinine, Serum 0.99 0.5 - 1.4 mg/dL [facility] Estimated Glomerular Filt Rate >60 [facility] Comment:Chronic Kidney Disea se: Estimated GFR < 60 mL/min/[id number] Kidney Disease: Estimated GFR < 15 mL/min/1.73m2 Glucose 227(H) 60 - 115 mg/dL [facility] Calcium 8.8 8.4 - 10.2 mg/dL [facility] Blood Venous blood specimen / Unknown 04/12/2024 9:12 AM EST 04/12/2024 2:18 PM EST Earlene Beck MD LAB BLOOD ORDERABLES Final Resul t [facility] [address] [place] [phone] * Hemoglobin A1c (04/10/2024 9:26 AM EST) Blood Venous blood specimen / Unknown us Historical Provider LAB BLOOD ORDERABLES Yasmeen page Result from Last 3 Months Insurance - [employer] Care Teams Mosquito Sprayer Relationship Specialty Start Date End Date Earlene Beck MD [address] [place] [address] PCP - General Family Medicine 02/26/20
--- OUTSIDE RECORDS SUMMARY | 2024-07-09 13:58 | XMS_ITS | Data Portability ---
Author Organization [employer] Address [address] [place] [phone] Care Team Providers Care Staff Psychologist Name Role Phone [facility] Referring Provider [facility] Referring Provider [phone] Assessment Encounter Date Assessment Date Assessment LastModified by Organization Details LastModified Time 08/23/2022 08/23/2022 I have reviewed and agree with the Assessment and Plan as documented by the Information Technology Architect. I provided real-time medical direction via phone [...] [id number] Theodore Yun MD Main - [facility] [address] [place] [phone] 08/23/2022 13:24:48 08/25/2022 11:38:02 Cough 30422857 R05.9 Health Concerns Section Related Observation LastModified by Organization Detai ls LastModified Time None Recorded Concern Status LastModified by Organization Details LastModified Time None Recorded Advance Directives Directive None Recorded Payers Encounter Date Sequence Insurance Name Policy Number Policy Ford Covered Member ID Ford Member ID Guarantor Name 08/23/2022 1 [facility] - DOS PRIOR TO 2022 - DUAL ELIGIBLE (MEDICARE REPLACEMENT/ADV ANTAGE - HMO) Aravind Mosqueda [id number] Aravind Mosqueda Notes Date Note Type Note [...] .................. .................. .................. .................. .................. .................. ............... Information Technology Architect Note From Jory Yoon: Community Information Technology Architect Earlene Yoon SC6 dispatched to a [facility] for a 57 yom [...] ............... Disposition: Fulfilled Theodore Yun MD [address] [facility] [address], [place], [address], [employer] 08/23/2022 17:10:22
--- OUTSIDE RECORDS SUMMARY | 2024-07-09 13:59 | XMS_ITS | Encounter Summary ---
Author Organization [employer] Address [address] [place] [address] Care Team Providers Care Event Marketing Assistant Name Role Phone Earlene Beck MD Primary Care Provider [phone] Reason for Visit * Reason Onset Date Comments Pre-op Exam 06/14/2024 Encounter Details Date Type Department Care Team ([facility] st Contact Info) Description 06/14/2024 Telephone [facility] MEDIC[facility] [address] [place] [address] Earlene Beck MD [address] [place] [address] Pre-op Exam Social History Tobacco Use Types [...] t he electric, gas, oil or water [employer] threatened to shut off services in your [...] No Surgeon's name: Tomy Vee Facility name: [facility] Surgeon's office number: [phone] Surgeon's office fax number: [phone] Contact name (person you spoke with): Mey Last office note from surgeon requested: Yes Send Message to Sangeetha Perez and Jenaro Turner documented in this encounter Plan of Treatment Upcoming Encounters Date Type Department Care Team ([facility] st Contact Info) Description 08/28/2024 10:15 AM EDT Office Visit [facility] MED [facility] PEDS [address] [place] [address] Earlene Beck MD [address] [place] [address] documented as of this encounter Visit Diagnoses Not on filedocumented in this encounter Care Teams Event Marketing Assistant Relationship Specialty Start Date End Date Earlene Beck MD [address] [place] [phone] PCP - General Family Medicine 02/26/20 documented as of this encounter
--- OUTSIDE RECORDS SUMMARY | 2024-07-09 13:59 | XMS_ITS | Encounter Summary ---
Author Organization [employer] [facility] Address [address] [facility] [address] [facility] 7t [place] [address] Care Team Providers Care Laboratory Courier Name Role Phone Earlene Beck MD Primary Care Provider [phone] Encounter Details Date Type Department Care Team (Latest Contact Info) Description 06/08/2020 Abstract [facility] CON[facility] Dental, Provider, DDS Social History [...] Description 08/28/2024 10:15 AM EDT Office Visit [facility] MED [facility] PEDS [address] [place] [address] Earlene Beck MD [address] [place] [address] documented as of this encounter Visit Diagnoses Not on filedocumented in this encounter Care Teams Laboratory Courier Relationship Specialty Start Date End Date Earlene Beck MD [address] [place] [phone] PCP - General Family Medicine 02/26/20 documented as of this encounter
--- OUTSIDE RECORDS SUMMARY | 2024-07-09 13:59 | XMS_ITS | Encounter Summary ---
Author Organization [employer] Address [address] [place] [address] Care Team Providers Care Analog Design Engineer Name Role Phone Earlene Beck MD Primary Care Provider [phone] Reason for Visit * Reason Onset Date Comments Lab Orders 02/22/2024 Encounter Details Date Type Department Care Team ([facility] st Contact Info) Description 02/22/2024 Telephone [facility] [address] [place] [address] Earlene Beck MD [address] [place] [address] Lab Orders Social History Tobacco Use Types [...] Description 08/28/2024 10:15 AM EDT Office Visit [facility]EDS [address] [place] [address] Earlene Beck MD [address] [place] [address] documented as of this encounter Visit Diagnoses Not on filedocumented in this encounter Care Teams Analog Design Engineer Relationship Specialty Start Date End Date Earlene Beck MD [address] [place] [phone] PCP - General Family Medicine 02/26/20 documented as of this encounter
--- OUTSIDE RECORDS SUMMARY | 2024-07-09 13:59 | XMS_ITS | Encounter Summary ---
Author Organization [employer] Address [address] [place] [address] Care Team Providers Care Cattle Sprayer Name Role Phone Earlene Beck MD Primary Care Provider [phone] Encounter Details Date Type Department Care Team ([facility] st Contact Info) Description 04/29/2024 Orders Only [facility] MED [facility] PEDS [address] [place] [address] ProviderKat MD Social History Tobacco Use Types [...] Description 08/28/2024 10:15 AM EDT Office Visit [facility] MED & PEDS [address] [place] [address] Earlene Beck MD [address] [place] [address] documented as of this encounter Procedures Procedure Name Priority Date/Time Associated Diagnosis Comments HEMOGLOBIN A1C Routine 04/10/2024 9:26 AM EST documented in this encounter Results * Hemoglobin A1c (04/10/2024 9:26 AM EST) Blood Venous blood specimen / Unknown Historical Provider LAB BLOOD ORDERABLES Yasmeen l Result documented in this encounter Visit Diagnoses Not on filedocumented in this encounter Care Teams Cattle Sprayer Relationship Specialty Start Date End Date Earlene Beck MD [address] [place] [address] PCP - General Family Medicine 02/26/20 documented as of this encounter
--- OUTSIDE RECORDS SUMMARY | 2024-07-09 13:59 | XMS_ITS | Encounter Summary ---
Author Organization [facility] Address [address] [place] [address] [address] [place] [address] Care Team Providers Care Vacuum Furnace Operator Name Role Phone Earlene Beck MD Primary Care Provider Reason for Visit * Reason Comments Med Refill Encounter Details Date Type Department Care Team (Late Contact Info) Description 01/10/2023 Refill [facility]S [address] [place] [address] Marie Reeves MD [address] [place] [address] Irritable bowel syndrome with diarrhea Social History [...] 08/28/2024 10:15 AM EDT Office Visit [facility] [address] [place] [address] Earlene Beck MD [address] [place] [address] documented as of this encounter Visit Diagnoses Diagnosis Irritable bowel syndrome with diarrhea Irritable bowel syndrome documented in this encounter Care Teams Vacuum Furnace Operator Relationship Specialty Start Date End Date Earlene Beck MD [address] [place] [address] PCP - General Family Medicine 02/26/20 documented as of this encounter
--- OUTSIDE RECORDS SUMMARY | 2024-07-09 13:59 | XMS_ITS | Encounter Summary ---
Author Organization [employer] [facility] Address [address] [place] [address] [address] [place] [address] Care Team Providers Care Alteration Worker Name Role Phone Earlene Beck MD Primary Care Provider [phone] Reason for Visit * Reason Comments Med Refill Encounter Details Date Type Department Care Team (Late Contact Info) Description 01/07/2023 Refill [facility] PEDS [address] [place] [address] Marie Reeves MD [address] [place] [address] Osteoarthritis of multiple joints, unspecified osteoarthritis type [...] Description 08/28/2024 10:15 AM EDT Office Visit [facility] [address] [place] [address] Earlnee Beck MD [address] [place] [address] documented as of this encounter Visit Diagnoses Diagnosis Osteoarthritis of multiple joints, unspecified osteoarthritis type documented in this encounter Care Teams Alteration Worker Relationship Specialty Start Date End Date Earlene Beck MD [address] [place] [address] PCP - General Family Medicine 02/26/20 documented as of this encounter
--- OUTSIDE RECORDS SUMMARY | 2024-07-09 13:59 | XMS_ITS | Encounter Summary ---
Author Organization [employer] [facility] Address [address] [place] [address] [address] [place] [address] Care Team Providers Care Boning Room Worker Name Role Phone Earlene Beck MD Primary Care Provider [phone] Encounter Details Date Type Department Care Team (Latest Contact Info) Description 05/09/[address] [facility] Dental, Provider, DDS Social History [...] Description 08/28/2024 10:15 AM EDT Office Visit [facility] MED [facility] PEDS [address] [place] [address] Earlene Beck MD [address] [place] [address] documented as of this encounter Visit Diagnoses Not on filedocumented in this encounter Care Teams Boning Room Worker Relationship Specialty Start Date End Date Earlene Beck MD [address] [place] [address] PCP - General Family Medicine 02/26/20 documented as of this encounter
--- OUTSIDE RECORDS SUMMARY | 2024-07-09 13:59 | XMS_ITS | Encounter Summary ---
Author Organization [facility] Address [address] [place] [address] 7[address] [place] [address] Care Team Providers Care Junior Software Developer Name Role Phone Earlene Beck MD Primary Care Provider [phone] Encounter Details Date Type Department Care Team (Latest Contact Info) Description 11/09/2018 Abstract [facility] CONVERSIONS Dental, Provider, DDS Social History [...] Description 08/28/2024 10:15 AM EDT Office Visit [facility] [address] [place] [address] Earlene Beck MD [address] [place] [address] documented as of this encounter Visit Diagnoses Not on filedocumented in this encounter Care Teams Junior Software Developer Relationship Specialty Start Date End Date Earlene Beck MD [address] [place] [id number] PCP - General Family Medicine 02/26/20 documented as of this encounter
--- OUTSIDE RECORDS SUMMARY | 2024-07-09 13:59 | XMS_ITS | Encounter Summary ---
Author Organization [employer] Address [address] [facility] 7t [place] [address] Care Team Providers Care Auto Salvage Worker Name Role Phone Earlene Beck MD Primary Care Provider [phone] Reason for Visit * Reason Comments Med Refill Encounter Details Date Type Department Care Team ([facility] st Contact Info) Description 01/04/2024 Refill [facility]EDS [address] [place], [place] [phone] Emelina Carmona MD [address] [place] [address] Social History Tobacco Use Types Packs/Day Years [...] Description 08/28/2024 10:15 AM EDT Office Visit [facility] [address] [place] [address] Earlene Beck MD [address] [place] [address] documented as of this encounter Visit Diagnoses Not on filedocumented in this encounter Care Teams Auto Salvage Worker Relationship Specialty Start Date End Date Earlene Beck MD [address] [place] [id number] PCP - General Family Medicine 02/26/20 documented as of this encounter
--- OUTSIDE RECORDS SUMMARY | 2024-07-09 13:59 | XMS_ITS | Clinical Summary ---
Author Organization [address] [facility] Address [address] [place] [address] Phone Care Team Providers Care Foundry Superintendant Name Role Phone Earlene Beck MD Primary Care Provider [phone] Allergies Active Allergy Reactions Criticality Noted Date [...] 9:30 AM EST Office Visit Orthopedic Surgery [facility] [address] [facility] [address] [place] [phone] Oracio Smalls, DPM Dermatophytosis of nail (Primary [...] PM EDT Office Visit Orthopedic Surgery - [place] [address] [phone] Oracio Smalls, DPM [address] [address] Health Maintenance Due Date Last Done Comments [...] Group ID:ICO Type:Not on file Address: [facility] JOÃ[place]ENEZ [address] Care Teams Foundry Superintendant Relationship Specialty Start Date End Date Earlene Beck MD [address] [place] [id number] PCP - General 12/27/23
[2024-07-09 14:12] LABS: MANUAL DIFF FLAG NO
[2024-07-09 14:15] LABS: Basophils Absolute Auto 0.1 X10*3/uL (0.0-0.2); Eosinophils Absolute Auto 0.3 X10*3/uL (0.0-0.4); Eosinophils Percent Auto 4.6 % (0-4); Hematocrit 43.4 % (42.0-52.0); Hemoglobin 13.4 g/dl (14.0-18.0); Imm Gran Abs Auto 0.01 X10*3/uL (0.00-0.03); Imm Gran Pct Auto 0.2 % (0.0-0.4); Lymphocytes Absolute Auto 2.3 X10*3/uL (1.2-4.9); Lymphocytes Percent Auto 38.3 % (20-40); Mean Corpuscular HGB Conc 30.9 g/dl (31.0-36.0); Mean Corpuscular Hemoglobin 26.5 pg (27.0-33.0); Mean Corpuscular Volume 85.8 fL (80.0-98.0); Mean Platelet Volume 12.8 fL (9.4-12.4); Monocytes Absolute Auto 0.4 X10*3/uL (0.1-1.2); Monocytes Percent Auto 6.6 % (2-11); Neutrophils Percent Auto 49.3 % (45-73); Platelet Count 149 X10*3/uL (160-400); Red Blood Count 5.06 X10*6/uL (4.60-5.80); Red Cell Distribution Width 14.8 % (11.0-16.0)
[2024-07-09 14:35] LABS: Anion Gap 11 (12-20); Blood Urea Nitrogen 12 mg/dL (9-16); Calcium 9.2 mg/dL (8.4-10.2); Carbon Dioxide 31 mmol/L (22-29); Chloride 105 mmol/L (96-108); Estimated Glomerular Filt Rate > 60; Glucose Random 224 mg/dL (60-115); Potassium 4.2 mmol/L (3.3-5.1); Sodium 143 mmol/L (135-145)
== END 2024-07-09 11:17 | disposition home or self-care (01) ==
LOC: HO.CHCLDS 11:16
PROVIDERS: Visit Provider Internal Medicine
DX: Z01.818 Encounter for other preprocedural examination (principal)
CPT/HCPCS: 36415; 80048; 85025

== ENCOUNTER 2024-07-23 14:57 | Outpatient (AMB) | payer OTHER, SELFPAY ==
--- NOTE | 2024-07-23 15:10 | MHC.OFFVIS ---
Vital Signs 07/23/24 15:11 Height 5 ft 9 in Weight 138 lb BMI 20.4 BP 122/62 Blood Pressure Location Lt brachial Position Sitting Pulse 69 Pulse Source Doppler Pulse Oximetry (%) 95 Oxygen Delivery Method Room Air Intake Visit Reasons: RTC clearance 06/04/24 Evaluation Manager Required: Yes Evaluation Manager Name: Lilinaa Eamon Burks Allergies naproxen [From NAPROSYN] Allergy (Mild, Verified 07/23/24 15:15) HIVES HPI HPI RTC clearance 06/04/24: Details: 59-year-old gentleman, former 60 pack-year smoker, quit 2018, with underlying history of left-sided chest tube for unclear indication approximately 10 years prior with reversal, now followed for COPD. His symptoms are well controlled current regimen of Anoro, duo nebs, and albuterol MDI. Patient denies recent exacerbation. [facility] Medical History Long-term insulin use in type 2 diabetes Diabetes type 2, uncontrolled Tobacco abuse Sleep apnea Myocardial infarction BPH (benign prostatic hyperplasia) Depression Thrombocytopenia Alcohol abuse Peripheral neuropathy COPD (chronic obstructive pulmonary disease) Seizures Essential hypertension Hyperlipidemia LDL goal <70 Type 2 diabetes mellitus with diabetic polyneuropathy Surgical History Hx of shoulder surgery History of esophagogastroduodenoscopy (EGD) H/O colonoscopy History of arthroscopic surgery of shoulder Hx of hernia repair Hx of pneumonectomy Hx of knee surgery Family History Father Cancer Diabetes Mother CVD (cardiovascular disease) Social History Household Members: Spouse Alcohol intake: never Patient Tobacco Use Status: Former Tobacco user Tobacco use type: Cigarette Years Smoked: 40 Current occupational status: unemployed Current occupation: Right Handed Review of Systems Const Denies daytime sleepiness, Denies excessive sweating, Denies fatigue, Denies fever(s), Denies lethargy, Denies malaise, Denies night sweats, Denies snoring and Denies weight loss Eyes Denies blurry vision and Denies itchy eyes ENT Denies nasal congestion, Denies post nasal drip, Denies sinus pain, Denies sinus pressure and Denies other ( Thrush) Card Denies chest pain, Denies pedal edema, Denies dyspnea, Denies orthopnea and Denies paroxysmal nocturnal dyspnea Resp Denies cough, Denies hemoptysis, Denies excessive phlegm production, Denies dyspnea, Denies snoring and Denies wheezing GI Denies abdominal pain and Denies heartburn Musc Denies myalgias, Denies arthralgias and Denies joint swelling Skin/Breast Denies rash Neuro Denies memory loss and Denies seizure-like activity Psych Denies abnormal sleep pattern, Denies anxiety and Denies memory loss Endo Denies excessive sweating, Denies fatigue and Denies heat intolerance Toño/Lymph Denies easy bruising Aller/Immun Denies itchy eyes, Denies seasonal rhinorrhea and Denies wheezing Physical Exam Vital Signs: Last Vital Signs Pulse 69 07/23/24 15:11 BP 122/62 07/23/24 15:11 Pulse Ox 95 07/23/24 15:11 Oxygen Delivery Method Room Air 07/23/24 15:11 BMI result Body Mass Index 20.4 Const General: no acute distress and alert Nutritional Appearance: not obese Orientation/consciousness: Other orientation findings ( oriented) HEENT Head: Yes atraumatic Eyes General: appearance normal, both eyes and all related structures Sclerae: sclerae normal EOM: EOMs intact bilaterally Neck Neck: Yes supple Lymphatic: no lymphadenopathy noted Resp Effort & Inspection: normal respiratory effort and no use of accessory muscles Auscultation: clear to auscultation bilaterally Cardio Rate: regular rate Rhythm: regular rhythm Heart sounds: no gallops, no murmurs and no rubs Skin General skin exam: other ( warm) Extrem General: No clubbing, No cyanosis and No edema Assessment & Plan Assessment & Plan (1) COPD (chronic obstructive pulmonary disease): Code(s): J44.9 - Chronic obstructive pulmonary disease, unspecified Category: Medical Plan: Well controlled on current regimen of Anoro, duo nebs, and albuterol MDI. Continue current regimen. (2) Personal history of nicotine dependence: Code(s): Z87.891 - Personal history of nicotine dependence Category: Medical Plan: Lung cancer screening CT chest is pending. (3) Encounter for preoperative pulmonary examination: Code(s): Z01.811 - Encounter for preprocedural respiratory examination Category: Medical Plan: At this time patient is at low risk for pulmonary perioperative complications for the proposed shoulder orthopedic procedure either under monitored anesthesia care or under general anesthesia. Coding Level of Care Code Est Pt Level 4 (09703) Diagnoses COPD (chronic obstructive pulmonary disease) J44.9 Personal history of nicotine dependence Z87.891 Encounter for preoperative pulmonary examination Z01.811
[2024-07-23 15:11] VITALS: BP 122/62; PULSE 69; O2SAT 95; BMI 20.4
--- OUTSIDE RECORDS SUMMARY | 2024-07-23 18:40 | XMS_ITS | Encounter Summary ---
Author Organization [employer] [facility] Address [address] [place] [address] 7[address] [place] [address] Care Team Providers Care Home Coordinator Name Role Phone Earlene Beck MD Primary Care Provider [phone] Reason for Visit * Reason Comments Med Refill Encounter Details Date Type Department Care Team (Late Contact Info) Description 05/12/2022 Refill [facility]S [address] [place] [address] Earlene Beck MD [address] [place] [address] Irritable bowel syndrome with diarrhea; Type 2 diabetes mellitus without complications ([facility]) Social History Tobacco Use Types Packs/Day Years [...] Department Care Team (Late Contact Info) Description 08/22/2024 2:00 PM EDT Medication Management [facility] [address] [place] [address] Estela Warren, PharmD [address] [place] [address] 08/28/2024 10:15 AM EDT Office Visit [facility] MED & PEDS [address] [place] [address] Earlene Beck MD [address] [place] [phone] documented as of this encounter Visit Diagnoses Diagnosis Irritable bowel syndrome with diarrhea Irritable bowel syndrome Type 2 diabetes mellitus without complications (CMS/HCC) documented in this encounter Care Teams Home Coordinator Relationship Specialty Start Date End Date Earlene Beck MD [address] [place] [phone] PCP - General Family Medicine 02/26/20 documented as of this encounter
--- OUTSIDE RECORDS SUMMARY | 2024-07-23 18:40 | XMS_ITS | Encounter Summary ---
Author Organization [employer] Address [address] [place] [address] [address] [place] [address] Care Team Providers Care Special Assets Officer Name Role Phone Earlene Beck MD Primary Care Provider [phone] Reason for Referral * Consultation (Routine) - Authorized Specialty Diagnoses / Procedures Referred By Jose A schuler Referred To Contact Pharmacy Diagnoses Type 2 diabetes mellitus with diabetic neuropathy, with long-term current use of insulin (CMS/HCC) Marie Reeves MD [address] [place] [id number] Phone: tel: fax: Referral ID Status Reason Start Date Expiration Date Visits Requested Visits Authorized [id number] Authorized Consult and Treat 07/10/2024 07/10/2025 6 6 Reason for Visit * Reason Comments Pre-op Exam Encounter Details Date Type Department Care Team ([facility] Contact Info) Description 07/09/2024 10:15 AM EDT Office Visit [facility] [address] [place] [address] Marie Reeves MD [address] [place] [address] Pre-op evaluation (Primary Dx); Type 2 diabetes mellitus with diabetic neuropathy, with long-term current use of insulin (CMS/HCC) Social History Tobacco Use Types Packs/Day [...] 10:32 AM EDT documented in this encounter Progress Notes * Marie Reeves MD - 07/09/2024 10:15 AM EDT Subjective Patient ID: Aravind Mosqueda is a 59 y.o. male who presents for Pre-op Exam. HPI Here for preop evaluation prior to right rotator cuff repair. Patient is asymptomatic today. Denies any chest pain, shortness of breath, palpitation, paroxysmal nocturnal dyspnea. Exercise tolerance > 4 METS. No reported bleeding diathesis Patient Active Problem List Diagnosis Autoimmune thrombocytopenia (CMS/HCC) Benign prostatic hyperplasia Cardiomyopathy (CMS/HCC) Chronic alcoholism in remission (CMS/HCC) Chronic obstructive lung disease (CMS/HCC) Substance abuse in remission (CMS/HCC) Mood disorder (CMS/HCC) Migraine Obstructive sleep apnea syndrome Osteoarthritis of multiple joints Type 2 diabetes mellitus with diabetic neuropathy, with long-term current use of insulin (CMS/HCC) Abdominal pain Hyperkalemia Elevated blood pressure reading Seizure ([facility]/HCC) Current Outpatient Medications on File Prior to Visit Medication Sig Dispense Refill acetaminophen (Tylenol 8 Hour) 650 MG ER tablet TAKE TWO TABLETS BY MOUTH EVERY 8 HOURS NEEDED WITH WATER DO NOT BREAK, CRUSH, DISSOLVE OR CHEW 90 tablet 11 Alcohol Swabs (Alcohol Prep) 70 % pads USE THREE DAILY 100 each 5 amitriptyline (Elavil) 75 MG tablet Take 75 mg by mouth at bedtime. amLODIPine (Norvasc) 2.5 MG tablet Take 2.5 mg by mouth in the morning. ammonium lactate (Lac-Hydrin) 12 % lotion APPLY ON FEET ONCE DAILY 226 g 11 Anoro Ellipta 62.5-25 MCG/ACT aerosol powder INHALE 1 PUFF ONCE DAILY. RINSE MOUTH AFTER USE Aspirin Adult Low Strength 81 MG EC tablet TAKE ONE TABLET EVERY MORNING 90 tablet 1 atorvastatin (Lipitor) 80 MG tablet TAKE ONE TABLET EVERY NIGHT AT BEDTIME 30 tablet 5 Blood Glucose Monitoring Suppl ([employer] [place] Lite) w/Device kit Blood Pressure kit 1 Units in the morning. 1 kit 0 carvedilol (Coreg) 12.5 MG tablet TAKE ONE TABLET TWICE DAILY IN THE MORNING AND AT BEDTIME WITH FOOD 180 tablet 1 cetirizine (ZyrTEC) 10 MG tablet TAKE ONE TABLET EVERY MORNING 30 tablet 5 cholecalciferol VITAMIN D (Vitamin D-3) 50 MCG (1999 UT) capsule TAKE ONE CAPSULE EVERY MORNING 90 capsule 3 Combivent Respimat 20-100 MCG/ACT inhaler INHALE 1 PUFF 4 TIMES A DAY, MAY TAKE ADDITIONAL PUFFS ASNEEDED. (MAX 6 PUFFS PER DAY) 12 g 1 Continuous Blood Gluc Freight Conductor (FreeStyle Hetal 2 Pope) device Use to monitor interstitial glucose 8 times a day and prn. 1 each 0 Continuous Glucose Freight Conductor (FreeStyle Hetal 2 Pope) device Scan sensor every 8 hours 1 each 0 Continuous Glucose Sensor (FreeStyle Hetal 2 Sensor) misc USE DIRECTED AND CHANGE EVERY 14 DAYS 2 each 3 diclofenac (Voltaren) 75 MG EC tablet TAKE ONE TABLET TWICE DAILY NEEDED FOR PAIN Diclofenac Sodium 1 % gel APPLY 2 GRAM'S TO AFFECTED AREA(s) TWICE DAILY NEEDED 100 g 3 dicyclomine (Bentyl) 20 MG tablet TAKE 1 TABLET in the morning, at noon, in the evening, and at bedtime 120 tablet 1 divalproex (Depakote) 500 MG EC tablet Take 500 mg by mouth. dulaglutide (Trulicity) 3 MG/0.5ML solution pen-injector Inject 3 mg under the skin 1 (one) time per week. (Patient not taking: Reported on 04/12/2024) 4 each 2 Easy Touch Lancets 33G/Twist misc TEST BLOOD SUGAR THREE TIMES DAILY 100 each 11 esomeprazole (NexIUM) [address] capsule TAKE ONE CAPSULE EVERY MORNING BEFORE BREAKFAST 90 capsule 1 famotidine (Pepcid) 40 MG tablet Take 1 tablet (40 mg) by mouth at bedtime. 90 tablet 1 Farxiga 5 MG TAKE ONE TABLET EVERY MORNING 30 tablet 11 Fluticasone Furoate-Vilanterol (Breo Ellipta) 100-25 MCG/ACT aerosol powder Inhale 25 mcg 2 times daily. 1 each 11 FREESTYLE LITE test strip TEST BLOOD SUGAR UP TO THREE TIMES DAILY DIRECTED 100 strip 11 gabapentin (Neurontin) 800 MG tablet TAKE 1 TABLET IN THE MORNING and TAKE TWO TABLETS EVERY DAY ATBEDTIME 90 tablet 1 glucose blood (FreeStyle Precision Hardik Test) test strip Use to test blood sugar 3 times daily 100 each 12 ipratropium-albuterol (Duo-Neb) 0.5-2.5 mg/3 mL nebulizer solution INHALE ONE AMPULE USING A NEBULIZER EVERY 4 TO 6 HOURS NEEDED FOR WHEEZING metFORMIN (Glucophage) 1000 MG tablet TAKE ONE TABLET IN THE MORNING AND EVENING 180 tablet 1 mirtazapine (Remeron) 45 MG tablet TAKE ONE TABLET EVERY NIGHT AT BEDTIME 30 tablet 11 oxybutynin (Ditropan) 5 MG tablet TAKE ONE TABLET TWICE DAILY IN THE MORNING AND AT BEDTIME 60 tablet 11 oxyCODONE-acetaminophen (Percocet) 5-325 MG tablet TAKE ONE TABLET BY MOUTH ONCE DAILY NEEDED FOR PAIN (Patient not taking: Reported on 04/12/2024) Pentips 32G X 4 MM misc USE TO INJECT INSULIN DAILY 100 each 11 sertraline (Zoloft) 100 MG tablet TAKE ONE TABLET EVERY MORNING WITH 50 MG TABLET 30 tablet 11 sertraline (Zoloft) 50 MG tablet TAKE ONE TABLET EVERY MORNING WITH 100 MG TABLET 30 tablet 11 Toujeo SoloStar 300 UNIT/ML injection INJECT 20 UNITS SUBCUTANEOUSLY AT BEDTIME 4.5 mL 3 Umeclidinium [place] (Incruse Ellipta) 62.5 MCG/ACT aerosol powder INHALE 1 PUFF DAILY AT THE SAME TIME EACH DAY IN THE MORNING 1 each 3 Viberzi 75 MG tablet TAKE ONE TABLET TWICE DAILY WITH MEALS OR WITH FOOD No current facility-administered medications on file prior to visit. Review of Systems Constitutional: Negative for appetite change, chills, diaphoresis and fatigue. Respiratory: Negative for cough, choking and shortness of breath. Cardiovascular: Negative for chest pain and leg swelling. Gastrointestinal: Negative for abdominal pain and anal bleeding. Objective BP 139/84 (BP Location: Left arm, Patient Position: Sitting, BP Cuff Size: Adult) Pulse 58 Temp97.8 ??F (36.6 ??C) (Oral) Resp 16 Ht 5' 9 (1.753 m) Wt 134 lb (60.8 kg) SpO2 98% BMI 19.79 kg/m?? Physical Exam Constitutional: General: He is not in acute distress. Appearance: Normal appearance. He is not ill-appearing, toxic-appearing or diaphoretic. Cardiovascular: Rate and Rhythm: Normal rate. Pulmonary: Effort: Pulmonary effort is normal. Abdominal: General: Abdomen is flat. Palpations: Abdomen is soft. Neurological: General: No focal deficit present. Mental Status: He is alert. Psychiatric: Mood and Affect: Mood normal. Assessment/Plan Diagnoses and all orders for this visit: Pre-op evaluation Comments: Labs reviewed: Acceptable. EKG normal Given patient's elevated A1c it is advisable to get the diabetes better controlled prior to the surgery I recommend to the x-ray any elective surgery for now and repeat the A1c in 3 months to assess improvement Orders: - Basic Metabolic Panel; Future - CBC auto differential; Future - ECG 12 lead Type 2 diabetes mellitus with diabetic neuropathy, with long-term current use of insulin ([facility]) Comments: Uncontrolled Patient needs some improvement of his diabetes prior to the surgery. Orders: - POCT A1C - POCT glucose manually resulted - dapagliflozin (Farxiga) 10 MG; Take 1 tablet (10 mg) by mouth Once per day. - Referral to Pharmacy CDTM documented in this encounter Plan of Treatment Upcoming Encounters Date Type Department Care Team (Late st Contact Info) Description 08/22/2024 2:00 PM EDT Medication Management [facility] [address] [place] [address] Estela Warren, PharmD [address] [place] [address] 08/28/2024 10:15 AM EDT Office Visit [facility] [address] [place] [address] Earlene Beck MD [address] [place] [address] Scheduled Referrals Name Type Priority Associated Diagnoses Orde r Schedule Referral to Pharmacy CDTM Outpatient Referral Routine Type 2 diabetes mellitus with diabetic neuropathy, with long-term current use of insulin ([facility]) Ordered: 07/10/2024 documented as of this encounter Procedures Procedure Name Priority Date/Time Associated Diagnosis Comments ECG 12-LEAD Routine 07/09/2024 1:01 PM EDT Pre-op evaluation CBC WITH AUTO DIFFERENTIAL Routine 07/09/2024 11:17 AM EDT Pre-op evaluation BASIC METABOLIC PANEL Routine 07/09/2024 11:17 AM EDT Pre-op evaluation POCT GLYCATED HEMOGLOBIN, TOTAL Routine 07/09/2024 10:34 AM EDT Type 2 diabetes mellitus with diabetic neuropathy, with long-term current use of insulin ([facility]) POCT GLUCOSE Routine 07/09/2024 10:33 AM EDT Type 2 diabetes mellitus with diabetic neuropathy, with long-term current use of insulin ([facility]) documented in this encounter Results * ECG 12 lead (07/09/2024 1:01 PM EDT) Marie Gonzales MD - 07/09/2024 1:01 PM EDT Heart rate 58 bpm. ??[place] 51 degrees. ??Normal sinus rhythm. ??No sign of left atrial enlargement or right atrial enlargement. ??No sign of hypertrophy. ??No ST elevation or ST depression. Normal ECG. us Marie Reeves MD ECG ORDERABLES Final Resul t * (ABNORMAL) CBC auto differential (07/09/2024 11:17 AM EDT) White Blood Count 6.0 4.8 - 10.8 X10*3/uL [facility] Red Blood Count 5.06 4.60 - 5.80 X10*6/uL [facility] Hemoglobin 13.4(L) 14.0 - 18.0 g/dl [facility] Hematocrit 43.4 42.0 - 52.0 % [facility] Mean Corpuscular Volume 85.8 80.0 - 98.0 fL [facility] Mean Corpuscular Hemoglobin 26.5(L) 27.0 - 33.0 pg [facility] Mean Corpuscular HGB Conc 30.9(L) 31.0 - 36.0 g/dl [facility] Red Cell Distribution Width 14.8 11.0 - 16.0 % [facility] Platelet Count 149(L) 160 - 400 X10*3/uL [facility] Mean Platelet Volume 12.8(H) 9.4 - 12.4 fL [facility] Neutrophils Percent Auto 49.3 45 - 73 % [facility] Imm Gran Pct Auto 0.2 0.0 - 0.4 % [facility] Lymphocytes Percent Auto 38.3 20 - 40 % [facility] Monocytes Percent Auto 6.6 2 - 11 % [facility] Eosinophils Percent Auto 4.6(H) 0 - 4 % [facility] Basophils Percent Auto 1.0 0 - 2 % [facility] NRBC Pct Auto 0.0 0.0 - 0.2 /100WBC [facility] Neutrophils Absolute Auto 3.0 2.0 - 8.3 x10*3/uL [facility] Imm Gran Abs Auto 0.01 0.00 - 0.03 X10*3/uL [facility] Lymphocytes Absolute Auto 2.3 1.2 - 4.9 X10*3/uL [facility] Monocytes Absolute Auto 0.4 0.1 - 1.2 X10*3/uL [facility] Eosinophils Absolute Auto 0.3 0.0 - 0.4 X10*3/uL [facility] Basophils Absolute Auto 0.1 0.0 - 0.2 X10*3/uL [facility] NRBC Abs Auto 0.000 0.0 - 0.012 X10*3/uL [facility] Blood Venous blood specimen / Unknown 07/09/2024 11:17 AM EDT 07/09/2024 2:09 PM EDT us Marie Reeves MD LAB BLOOD ORDERABLES Final Result [facility] [address] [place], [place] [phone] * (ABNORMAL) Basic Metabolic Panel (07/09/2024 11:17 AM EDT) Sodium 143 135 - 145 mmol/L [facility] Potassium 4.2 3.3 - 5.1 mmol/L [facility] Chloride 105 96 - 108 mmol/L [facility] Carbon Dioxide 31(H) 22 - 29 mmol/L [facility] Anion Gap 11(L) 12 - 20 [facility] Urea Nitrogen (BUN) 12 9 - 16 mg/dL [facility] Creatinine, Serum 0.88 0.5 - 1.4 mg/dL [facility] Estimated Glomerular Filt Rate >60 [facility] Comment:Chronic Kidney Disea se: Estimated GFR < 60 mL/min/[id number] Kidney Disease: Estimated GFR < 15 mL/min/1.73m2 Glucose 224(H) 60 - 115 mg/dL [facility] Calcium 9.2 8.4 - 10.2 mg/dL [facility] Blood Venous blood specimen / Unknown 07/09/2024 11:17 AM EDT 07/09/2024 2:09 PM EDT Marie Reeves MD LAB BLOOD ORDERABLES Final Result [facility] [address] [place] [phone] * (ABNORMAL) POCT A1C (07/09/2024 10:34 AM EDT) Hemoglobin A1C 10.8(A) 4.0 - 6.0 % QC Media Lot # Comment:[id number] Lot# Expiration Date Comment: Blood 07/09/2024 10:3 4 AM EDT Marie Reeves MD POINT OF CARE TEST ENTER/ED IT ORDERABLES Final Result * (ABNORMAL) POCT glucose manually resulted (07/09/2024 10:33 AM EDT) Glucose Blood, POC 278(A) 60 - 200 mg/dL QC Media Lot # Comment:[id number] Lot# Expiration Date Comment:10/31/2024 Blood Capillary blood specimen / Unknown 07/09/2024 10:33 AM EDT Marie Reeves MD POINT OF CARE TEST ENTER/ED IT ORDERABLES Final Result documented in this encounter Visit Diagnoses Diagnosis Pre-op evaluation- Primary Type 2 diabetes mellitus with diabetic neuropathy, with long-term current use of insulin ([facility]) documented in this encounter Care Teams Special Assets Officer Relationship Specialty Start Date End Date Earlene Beck MD [address] [place] [id number] PCP - General Family Medicine 02/26/20 documented as of this encounter
--- OUTSIDE RECORDS SUMMARY | 2024-07-23 18:40 | XMS_ITS | Clinical Summary ---
Author Organization [employer] Address [address] [place] [address] 7t [place] [address] Care Team Providers Care Parking Meter Attendant Name Role Phone Earlene Beck MD Primary Care Provider [phone] Allergies Active Allergy Reactions Criticality Noted Date Comments Naproxen 06/11/2013 Medications * This document contains information received from the source organization and may not represent a complete record from that organization. amitriptyline (Elavil) 75 MG tablet Take 75 mg by mouth at bedtime. 11/26/19 22 Active oxyCODONE-acetami nophen (Percocet) 5-325 MG tablet TAKE ONE TABLET BY MOUTH ONCE DAILY NEEDED FOR PAIN 02/03/20 22 Active famotidine (Pepcid) 40 MG tabletIndications :Epigastric pain Take 1 tablet (40 mg) by mouth at bedtime. 90 tablet 1 05/24/19 23 Active acetaminophen (Tylenol 8 Hour) 650 MG ER tabletIndications :Osteoarthritis of multiple joints, unspecified osteoarthritis type TAKE TWO TABLETS BY MOUTH EVERY 8 HOURS NEEDED WITH WATER DO NOT BREAK, CRUSH, DISSOLVE OR CHEW 90 tablet 11 07/14/19 23 Active Umeclidinium [place] (Incruse Ellipta) 62.5 MCG/ACT aerosol powderIndications :Chronic obstructive pulmonary disease, unspecified COPD type (CMS/HCC) INHALE 1 PUFF DAILY AT THE SAME TIME EACH DAY IN THE MORNING 1 each 3 08/02/19 23 Active ammonium lactate (Lac-Hydrin) 12 % lotion APPLY ON FEET ONCE DAILY 226 g 11 09/02/19 23 Active Blood Glucose Monitoring Suppl (Arcivr [place] Lite) w/Device kit 10/06/19 23 Active Viberzi 75 MG tablet TAKE ONE TABLET TWICE DAILY WITH MEALS OR WITH FOOD 09/21/19 Active Blood Pressure kitIndications:El evated blood pressure reading 1 Units in the morning. 1 kit 11/01/19 Active dulaglutide (Trulicity) 3 MG/0.5ML solution pen-injector Inject 3 mg under the skin 1 (one) time per week. 4 each 2 11/01/19 Active Additional Information Patient not taking.Reported on 04/12/2024 Continuous Blood Gluc Pattern Maker Programer (FreeStyle Hetal 2 Centerpoint) deviceIndications :Type 2 diabetes mellitus with diabetic neuropathy, with long-term current use of insulin ([facility]) Use to monitor interstitial glucose [...] each 09/29/19 24 Active FREESTYLE LITE test stripIndications: Type 2 diabetes mellitus with diabetic neuropathy, with long-term current use of insulin ([facility]) TEST BLOOD SUGAR UP TO THREE TIMES DAILY DIRECTED 100 strip 10/23/19 Active Easy Touch Lancets 33G/Twist miscIndications:T ype 2 diabetes mellitus with diabetic neuropathy, with long-term current use of insulin ([facility]) TEST BLOOD SUGAR THREE TIMES DAILY 100 each 10/23/19 24 Active Fluticasone Furoate-Vilantero l (Breo Ellipta) 100-25 [...] mL 3 12/25/19 24 Active Continuous Glucose Pattern Maker Programer (FreeStyle Hetal 2 Centerpoint) device Scan sensor every 8 hours 1 each 12/25/19 24 Active glucose blood (FreeStyle Precision Hardik Test) test strip Use to test blood sugar 3 times daily 100 each 12 12/25/19 24 025 Active Diclofenac Sodium 1 % gel APPLY 2 GRAM'S TO AFFECTED AREA(s) TWICE DAILY NEEDED 100 g 3 03/07/20 24 Active esomeprazole (NexIUM) [address] capsuleIndication s:Gastroesophagea l reflux disease without esophagitis TAKE ONE CAPSULE EVERY MORNING BEFORE BREAKFAST 90 capsule 1 03/13/20 24 Active metFORMIN (Glucophage) 1000 MG tabletIndications :Type [...] MORNING 90 capsule 3 04/05/20 24 Active Continuous Glucose Sensor (FreeStyle Hetal 2 Sensor) misc USE DIRECTED AND CHANGE EVERY 14 DAYS 2 each 3 04/11/20 24 Active diclofenac (Voltaren) 75 MG EC tablet TAKE ONE TABLET TWICE DAILY NEEDED FOR PAIN 03/26/20 Active ipratropium-albut jerica (Duo-Neb) 0.5-2.5 mg/3 mL [...] 12/28/19 24 Active Combivent Respimat 20-100 MCG/ACT inhalerIndication s:Chronic obstructive pulmonary disease, unspecified COPD type ([facility]) INHALE 1 PUFF 4 TIMES A DAY, MAY TAKE ADDITIONAL PUFFS NEEDED. (MAX 6 PUFFS PER DAY) 12 g 1 05/02/19 25 Active gabapentin (Neurontin) 800 MG tabletIndications :Osteoarthritis of multiple joints, unspecified osteoarthritis type TAKE 1 TABLET IN THE MORNING and TAKE TWO TABLETS EVERY DAY AT BEDTIME 90 tablet 1 06/05/19 25 Active atorvastatin (Lipitor) 80 MG tablet TAKE ONE TABLET EVERY NIGHT AT BEDTIME 30 tablet 5 06/05/19 25 Active dicyclomine (Bentyl) 20 MG tabletIndications :Irritable bowel syndrome with diarrhea TAKE 1 TABLET in the morning, at noon, in the evening, and at bedtime 120 tablet 1 06/05/19 25 Active cetirizine (ZyrTEC) 10 MG tablet TAKE ONE TABLET EVERY MORNING 30 tablet 5 06/05/19 25 Active dapagliflozin (Farxiga) 10 MGIndications:Typ e 2 diabetes mellitus with diabetic neuropathy, with long-term current use of insulin ([facility]) Take 1 tablet (10 mg) by mouth Once per day. 30 tablet 11 07/11/19 25 026 Active Farxiga 5 MG TAKE ONE TABLET EVERY MORNING 30 tablet 11 04/08/20 24 025 Disconti nued(Dos e adjustme nt) Active Problems Problem Noted Date Diagnosed Date [...] Encounters Date Type Department Care Team Description 07/10/2024 Telephone [facility] MED & PEDS [address] [place] [address] Marie Reeves MD PCP Contact 07/09/2024 10:15 AM EDT Office Visit [facility] MED & PEDS [address] [place] [address] Marie Reeves MD Pre-op evaluation (Primary Dx); Type 2 diabetes mellitus with diabetic neuropathy, with long-term current use of insulin ([facility]) 07/09/2024 Travel 06/14/2024 Telephone [facility] MEDICINE [address] [place] [address] Earlene Beck MD Pre-op Exam 05/31/2024 Refill [facility] MED & PEDS [address] [facility] [place] [address] Earlene Beck MD Osteoarthritis of multiple joints, unspecified osteoarthritis type; Irritable bowel syndrome with diarrhea 05/02/2024 Refill [facility] MED & PEDS [address] [facility] [place] [address] Earlene Beck MD Chronic obstructive pulmonary disease, unspecified COPD type ([facility]) 04/29/2024 Orders Only [facility] MED & PEDS [address] [facility] [address] [place] [id number] Provider, MD Kat from Last 3 Months Immunizations Name Administration [...] Description 08/22/2024 2:00 PM EDT Medication Management [facility] MED & PEDS [address] [place] [address] Estela Warren, PharmD [address] [place] [address] 08/28/2024 10:15 AM EDT Office Visit [facility] MED & PEDS [address] [place] [address] Earlene Beck MD [address] [place] [address] Health Maintenance Due Date Last Done Comments [...] neuropathy, with long-term current use of insulin ([facility]) POCT GLUCOSE Routine 07/09/2024 10:33 AM EDT Type 2 diabetes mellitus with diabetic neuropathy, with long-term current use of insulin (CMS/[facility]) LIPID PANEL, STANDARD Routine 04/12/2024 9:12 AM EST Type 2 diabetes mellitus with diabetic neuropathy, with long-term current use of insulin (CMS/[facility]) from Last 3 Months or Most Recently Relevant to Health Maintenance Results * ECG 12 lead (07/09/2024 1:01 PM EDT) Marie Gonzales MD - 07/09/2024 1:01 PM EDT Heart rate 58 bpm. ??Stella 51 degrees. ??Normal sinus rhythm. ??No sign of left atrial enlargement or right atrial enlargement. ??No sign of hypertrophy. ??No ST elevation or ST depression. Normal ECG. us Marie Reeves MD ECG ORDERABLES Final Resul t * (ABNORMAL) CBC auto differential (07/09/2024 11:17 AM EDT) White Blood Count 6.0 4.8 - 10.8 X10*3/uL [facility] Red Blood Count 5.06 4.60 - 5.80 X10*6/uL [facility] Hemoglobin 13.4(L) 14.0 - 18.0 g/dl [facility] Hematocrit 43.4 42.0 - 52.0 % [facility] Mean Corpuscular Volume 85.8 80.0 - 98.0 fL [facility] Mean Corpuscular Hemoglobin 26.5(L) 27.0 - 33.0 pg [facility] Mean Corpuscular HGB Conc 30.9(L) 31.0 - 36.0 g/dl [facility] Red Cell Distribution Width 14.8 11.0 - 16.0 % [facility] Platelet Count 149(L) 160 - 400 X10*3/uL [facility] Mean Platelet Volume 12.8(H) 9.4 - 12.4 fL [facility] Neutrophils Percent Auto 49.3 45 - 73 % [facility] Imm Gran Pct Auto 0.2 0.0 - 0.4 % [facility] Lymphocytes Percent Auto 38.3 20 - 40 % [facility] Monocytes Percent Auto 6.6 2 - 11 % [facility] Eosinophils Percent Auto 4.6(H) 0 - 4 % [facility] Basophils Percent Auto 1.0 0 - 2 % [facility] NRBC Pct Auto 0.0 0.0 - 0.2 /100WBC [facility] Neutrophils Absolute Auto 3.0 2.0 - 8.3 x10*3/uL [facility] Imm Gran Abs Auto 0.01 0.00 - 0.03 X10*3/uL [facility] Lymphocytes Absolute Auto 2.3 1.2 - 4.9 X10*3/uL [facility] Monocytes Absolute Auto 0.4 0.1 - 1.2 X10*3/uL [facility] Eosinophils Absolute Auto 0.3 0.0 - 0.4 X10*3/uL [facility] Basophils Absolute Auto 0.1 0.0 - 0.2 X10*3/uL [facility] NRBC Abs Auto 0.000 0.0 - 0.012 X10*3/uL [facility] Blood Venous blood specimen / Unknown 07/09/2024 11:17 AM EDT 07/09/2024 2:09 PM EDT us Marie Reeves MD LAB BLOOD ORDERABLES Final Result [facility] [address] [place] [phone] * (ABNORMAL) Basic Metabolic Panel (07/09/2024 11:17 AM EDT) Sodium 143 135 - 145 mmol/L [facility] Potassium 4.2 3.3 - 5.1 mmol/L [facility] Chloride 105 96 - 108 mmol/L [facility] Carbon Dioxide 31(H) 22 - 29 mmol/L [facility] Anion Gap 11(L) 12 - 20 [facility] Urea Nitrogen (BUN) 12 9 - 16 mg/dL [facility] Creatinine, Serum 0.88 0.5 - 1.4 mg/dL [facility] Estimated Glomerular Filt Rate >60 [facility] Comment:Chronic Kidney Disea se: Estimated GFR < 60 mL/min/[id number] Kidney Disease: Estimated GFR < 15 mL/min/1.73m2 Glucose 224(H) 60 - 115 mg/dL [facility] Calcium 9.2 8.4 - 10.2 mg/dL [facility] Blood Venous blood specimen / Unknown 07/09/2024 11:17 AM EDT 07/09/2024 2:09 PM EDT us Marie Reeves MD LAB BLOOD ORDERABLES Final Result [facility] [address] [place] [phone] * (ABNORMAL) POCT A1C (07/09/2024 10:34 AM EDT) Hemoglobin A1C 10.8(A) 4.0 - 6.0 % QC Media Lot # Comment:[id number] Lot# Expiration Date Comment: Blood 07/09/2024 10:3 4 AM EDT us Marie Reeves MD POINT OF CARE TEST ENTER/ED IT ORDERABLES Final Result * (ABNORMAL) POCT glucose manually resulted (07/09/2024 10:33 AM EDT) Glucose Blood, POC 278(A) 60 - 200 mg/dL [employer] Media Lot # Comment:[id number] Lot# Expiration Date Comment:10/31/2024 Blood Capillary blood specimen / Unknown 07/09/2024 10:33 AM EDT Marie Reeves MD POINT OF CARE TEST ENTER/ED IT ORDERABLES Final Result * (ABNORMAL) Lipid Panel, Standard (04/12/2024 9:12 AM EST) Triglycerides 54 <150 mg/dL [facility] Comment:Desirable Triglyceri de: less than 150 mg/dLBorderline High Triglyceride 150-199 mg/dLHigh Triglyceride: 200-499 mg/dLVery High Triglyceride: greater than or equal to 5OO mg/dL Cholesterol 98 <200 mg/dL [facility] Comment:Desirable Cholestero l: less than 200 mg/dLBorderline High Cholesterol: 200-239 mg/dLHigh Cholesterol: greater than 239 mg/dL LDL Cholesterol Calculated 55 <100 mg/dL [facility] Comment:Desirable LDL: less than 100 mg/dLNear Optimal/Above Optimal LDL: 110- 129 mg/dLBorderline High LDL: 130-159 mg/dLHigh LDL: 160-189 mg/dLVery High LDL: greater than or equal to 190 mg/dL HDL Cholesterol 33(L) >40 mg/dL [facility] Comment:Desirable HDL: great er than 40 mg/dL Note: This HDL assay may give artificially low results in patients with liver disease. Blood Venous blood specimen / Unknown 04/12/2024 9:12 AM EST 04/12/2024 2:18 PM EST us Earlene Beck MD LAB BLOOD ORDERABLES Final Resul t [facility] [address] [place] [phone] from Last 3 Months or Most Recently Relevant to Health Maintenance Insurance [facility] Care Teams Parking Meter Attendant Relationship Specialty Start Date End Date Earlene Beck MD [address] [place] [address] PCP - General Family Medicine 02/26/20
--- OUTSIDE RECORDS SUMMARY | 2024-07-23 18:40 | XMS_ITS | Encounter Summary ---
Author Organization [employer] Address [address] 7[address] [place] [address] Care Team Providers Care Bingo Attendant Name Role Phone Earlene Beck MD Primary Care Provider [phone] Reason for Visit * Reason Onset Date Comments Lab Orders 02/22/2024 Encounter Details Date Type Department Care Team ([facility] st Contact Info) Description 02/22/2024 Telephone [facility] MEDICINE [address] [place] [address] Earlene Beck MD [address] [place] [address] Lab Orders Social History Tobacco Use Types [...] Description 08/22/2024 2:00 PM EDT Medication Management [facility] MED & PEDS [address] [place] [address] Estela Warren, PharmD [address] [place] [address] 08/28/2024 10:15 AM EDT Office Visit [facility] MED & PEDS [address] [place] [address] Earlene Beck MD 505 [place] [address] documented as of this encounter Visit Diagnoses Not on filedocumented in this encounter Care Teams Bingo Attendant Relationship Specialty Start Date End Date Earlene Beck MD [address] [place] [address] PCP - General Family Medicine 02/26/20 documented as of this encounter
--- OUTSIDE RECORDS SUMMARY | 2024-07-23 18:40 | XMS_ITS | Encounter Summary ---
Author Organization [employer] [facility] Address [address] [place] [address] 7t [place] [address] Care Team Providers Care House Mover Name Role Phone Earlene Beck MD Primary Care Provider [phone] Reason for Visit * Reason Comments Med Refill Encounter Details Date Type Department Care Team (Late Contact Info) Description 05/12/2022 Refill [facility] MED & PEDS [address] [place] [address] Earlene Beck MD [address] [place] [address] Irritable bowel syndrome with diarrhea; Gastro-esophageal reflux [...] Description 08/22/2024 2:00 PM EDT Medication Management [facility] MED & PEDS [address] [place] [address] Estela Warren PharmD [address] [place] [address] 08/28/2024 10:15 AM EDT Office Visit [facility] MED & PEDS [address] [place] [address] Earlene Beck MD [address] [place] [phone] documented as of this encounter Visit Diagnoses Diagnosis Irritable bowel syndrome with diarrhea Irritable bowel syndrome Gastro-esophageal reflux disease without esophagitis documented in this encounter Care Teams House Mover Relationship Specialty Start Date End Date Earlene Beck MD [address] [place] [phone] PCP - General Family Medicine 02/26/20 documented as of this encounter
--- OUTSIDE RECORDS SUMMARY | 2024-07-23 18:40 | XMS_ITS | Encounter Summary ---
Author Organization [id number] Address [address] 7[address] [place] [address] Care Team Providers Care Pitting Machine Operator Name Role Phone Earlene Beck MD Primary Care Provider [phone] Encounter Details Date Type Department Care Team ([facility] st Contact Info) Description 04/29/2024 Orders Only [facility] CH[facility] MED & PEDS [address] [place] [address] ProviderKat MD Social History Tobacco Use Types [...] Description 08/22/2024 2:00 PM EDT Medication Management [facility] MED & PEDS [address] [place] [address] Estela Warren PharmD [address] [place] [address] 08/28/2024 10:15 AM EDT Office Visit [facility] MED & PEDS [address] [place], [place] [phone] Earlene Beck MD 505 [place] [address] documented as of this encounter Procedures Procedure Name Priority Date/Time Associated Diagnosis Comments HEMOGLOBIN A1C Routine 04/10/2024 9:26 AM EST documented in this encounter Results * Hemoglobin A1c (04/10/2024 9:26 AM EST) Blood Venous blood specimen / Unknown us Historical Provider LAB BLOOD ORDERABLES Yasmeen l Result documented in this encounter Visit Diagnoses Not on filedocumented in this encounter Care Teams Pitting Machine Operator Relationship Specialty Start Date End Date Earlene Beck MD [address] [place] [address] PCP - General Family Medicine 02/26/20 documented as of this encounter
--- OUTSIDE RECORDS SUMMARY | 2024-07-23 18:40 | XMS_ITS | Clinical Summary ---
Author Organization [facility] Address [address] [place] [address] Phone Care Team Providers Care Tip Inserter Name Role Phone Earlene Beck MD Primary Care Provider [phone] Allergies Active Allergy Reactions Criticality Noted Date [...] 9:30 AM EST Office Visit Orthopedic Surgery [facility] [address] [facility] [address] [place] [phone] Oracio Smalls, DPM Dermatophytosis of nail (Primary [...] PM EDT Office Visit Orthopedic Surgery - [place] [address] [phone] Oracio Smalls, DPM [address] [address] Health Maintenance Due Date Last Done Comments [...] Group ID:ICO Type:Not on file Address: [facility] [place]Z [id number] Care Teams Tip Inserter Relationship Specialty Start Date End Date Earlene Beck MD [address] [place] [phone] PCP - General 12/27/23
--- OUTSIDE RECORDS SUMMARY | 2024-07-23 18:40 | XMS_ITS | Encounter Summary ---
Author Organization [employer] [facility] Address [address] [place] [address] 7 [place] [address] Care Team Providers Care Lance Crewmember/Mlrs Sergeant Name Role Phone Earlene Beck MD Primary Care Provider [phone] Reason for Visit * Reason Comments Med Refill Encounter Details Date Type Department Care Team ([facility] Contact Info) Description 01/07/2023 Refill [facility] MED & PEDS [address] [place] [address] Marie Reeves MD [address] [place] [address] Osteoarthritis of multiple joints, unspecified osteoarthritis type [...] Description 08/22/2024 2:00 PM EDT Medication Management [facility] MED & PEDS [address] [place] [address] Estela Warren, PharmD [address] [place] [address] 08/28/2024 10:15 AM EDT Office Visit [facility] CHC MED & PEDS [address] [place] [address] Earlene Beck MD [address] [place] [address] documented as of this encounter Visit Diagnoses Diagnosis Osteoarthritis of multiple joints, unspecified osteoarthritis type documented in this encounter Care Teams Lance Crewmember/Mlrs Sergeant Relationship Specialty Start Date End Date Earlene Beck MD [address] [place] [address] PCP - General Family Medicine 02/26/20 documented as of this encounter
--- OUTSIDE RECORDS SUMMARY | 2024-07-23 18:40 | XMS_ITS | Encounter Summary ---
Author Organization [employer] Address [address] [facility] [address] [place] [address] Care Team Providers Care Slabber Light Name Role Phone Earlene Beck MD Primary Care Provider [phone] Encounter Details Date Type Department Care Team [...] Description 08/22/2024 2:00 PM EDT Medication Management [facility] MED & PEDS [address] [place] [address] Estela Warren PharmD [address] [place] [address] 08/28/2024 10:15 AM EDT Office Visit [facility] MED & PEDS [address] [place] [address] Earlene Beck MD 505 [place] [address] documented as of this encounter Visit Diagnoses Not on filedocumented in this encounter Care Teams Slabber Light Relationship Specialty Start Date End Date Earlene Beck MD [address] [place] [address] PCP - General Family Medicine 02/26/20 documented as of this encounter
--- OUTSIDE RECORDS SUMMARY | 2024-07-23 18:40 | XMS_ITS | Encounter Summary ---
Author Organization [employer] Address [address] [facility] 7 [place] [address] Care Team Providers Care Production Supply Equipment Tender Name Role Phone Earlene Beck MD Primary Care Provider [phone] Reason for Visit * Reason Onset Date Comments PCP Contact 07/10/2024 Encounter Details Date Type Department Care Team ([facility] st Contact Info) Description 07/10/2024 Telephone [facility] MED & PEDS [address] [place] [address] Marie Reeves MD [address] [place] [address] PCP Contact Social History Tobacco Use Types Packs/Day Years [...] the past 12 months, has t he [employer], gas, oil or water company threatened to [...] encounter Miscellaneous Notes * Telephone Encounter - Freda Geronimo RN - 07/10/2024 12:32 PM EDT TC to pt per provider instruction of recommending pt lower A1c prior to rotator cuff surgery. union contract representative services used. No answer. Voicemail left instructing pt to return call to office. documented in this encounter Plan of Treatment Upcoming Encounters Date Type Department Care Team (Late st Contact Info) Description 08/22/2024 2:00 PM EDT Medication Management [facility] MED & PEDS [address] [place] [address] Estela Warren, PharmD [address] [place] [address] 08/28/2024 10:15 AM EDT Office Visit [facility] MED & PEDS [address] [place] [address] Earlene Beck MD [address] [place] [address] documented as of this encounter Visit Diagnoses Not on filedocumented in this encounter Care Teams Production Supply Equipment Tender Relationship Specialty Start Date End Date Earlene Beck MD [address] [place] [address] PCP - General Family Medicine 02/26/20 documented as of this encounter
--- OUTSIDE RECORDS SUMMARY | 2024-07-23 18:40 | XMS_ITS | Data Portability ---
Author Organization [employer] Address [address] [place] [phone] Care Team Providers Care Box Maker Name Role Phone [facility] Referring Provider [facility] Referring Provider Assessment Encounter Date Assessment Date Assessment LastModified by Organization Details LastModified Time 08/23/2022 08/23/2022 I have reviewed and agree with the Assessment and Plan as documented by the Linting Machine Operator. I provided real-time medical direction via phone [...] [id number] Theodore Yun MD Main - [facility] [address] [place] [phone] 08/23/2022 13:24:48 08/25/2022 11:38:02 Cough [id number] R05.9 Health Concerns Section Related Observation LastModified by Organization Detai ls LastModified Time None Recorded Concern Status LastModified by Organization Details LastModified Time None Recorded Advance Directives Directive None Recorded Payers Encounter Date Sequence Insurance Name Policy Number Policy Ford Covered Member ID Ford Member ID Guarantor Name 08/23/2022 1 [facility] - DOS PRIOR TO 2022 - DUAL ELIGIBLE (MEDICARE REPLACEMENT/ADV ANTAGE - HMO) Aravind Mosqueda [id number] Aravind Mosqueda Notes Date Note Type Note [...] .................. .................. .................. .................. .................. .................. ............... Linting Machine Operator Note From Jory Yoon: Community Linting Machine Operator Earlene Yoon SC6 dispatched to a [facility] for a 57 yom C/O a [...] ............... Disposition: Fulfilled Theodore Yun MD [address] [facility],[address], [place], [address], [employer] 08/23/2022 17:10:22
--- OUTSIDE RECORDS SUMMARY | 2024-07-23 18:41 | XMS_ITS | Encounter Summary ---
Author Organization [employer] [facility] Address [address] [place] [address] [address] [place] [address] Care Team Providers Care Nail Puller Name Role Phone Earlene Beck MD Primary Care Provider [phone] Encounter Details Date Type Department Care Team (Latest Contact Info) Description 11/09/2018 Abstract [facility] CONVERSIONS Dental, Provider, DDS Social [...] Description 08/22/2024 2:00 PM EDT Medication Management [facility] [address] [place] [address] Estela Warren, PharmD [address] [place] [address] 08/28/2024 10:15 AM EDT Office Visit [facility] [address] [place] [address] Earlene Beck MD [address] [place] [address] documented as of this encounter Visit Diagnoses Not on filedocumented in this encounter Care Teams Nail Puller Relationship Specialty Start Date End Date Earlene Beck MD [address] [place] [address] PCP - General Family Medicine 02/26/20 documented as of this encounter
--- OUTSIDE RECORDS SUMMARY | 2024-07-23 18:41 | XMS_ITS | Encounter Summary ---
Author Organization [employer] [facility] Address [address] [place] [address] 7[address] [place] [address] Care Team Providers Care Dope Weigh Operator Name Role Phone Earlene Beck MD Primary Care Provider [phone] Encounter Details Date Type Department Care Team (Latest Contact Info) Description 06/08/2020 Abstract [facility] CONVERSIONS Dental, Provider, DDS Social History [...] 08/22/2024 2:00 PM EDT Medication Management [facility] [address] [place] [address] Estela Warren, PharmD [address] [place] [address] 08/28/2024 10:15 AM EDT Office Visit [facility] [address] [place] [address] Earlene Beck MD [address] [place] [address] documented as of this encounter Visit Diagnoses Not on filedocumented in this encounter Care Teams Dope Weigh Operator Relationship Specialty Start Date End Date Earlene Beck MD [address] [place] [address] PCP - General Family Medicine 02/26/20 documented as of this encounter
--- OUTSIDE RECORDS SUMMARY | 2024-07-23 18:41 | XMS_ITS | Encounter Summary ---
Author Organization [employer] Address [address] [facility] 7t [place] [address] Care Team Providers Care Nutrition Teacher Name Role Phone Earlene Beck MD Primary Care Provider [phone] Reason for Visit * Reason Comments Med Refill Encounter Details Date Type Department Care Team ([facility] st Contact Info) Description 01/04/2024 Refill [facility] [address] [place], [place] [phone] Emelina Carmona MD [address] [place] [address] Social History Tobacco Use Types Packs/Day Years [...] Description 08/22/2024 2:00 PM EDT Medication Management [facility] [address] [place] [address] Estela Warren PharmD [address] [place] [address] 08/28/2024 10:15 AM EDT Office Visit [facility] [address] [place] [address] Earlene Beck MD [address] [place] [address] documented as of this encounter Visit Diagnoses Not on filedocumented in this encounter Care Teams Nutrition Teacher Relationship Specialty Start Date End Date Earlene Beck MD [address] [place] [address] PCP - General Family Medicine 02/26/20 documented as of this encounter
--- OUTSIDE RECORDS SUMMARY | 2024-07-23 18:41 | XMS_ITS | Encounter Summary ---
Author Organization [employer] [facility] Address [address] [place] [address] 7t [place] [address] Care Team Providers Care Soaking Pits Supervisor Name Role Phone Earlene Beck MD Primary Care Provider [phone] Reason for Visit * Reason Comments Med Refill Encounter Details Date Type Department Care Team ([facility] Contact Info) Description 01/10/2023 Refill [facility] [address] [place] [address] Marie Reeves MD [address] [place] [address] Irritable bowel syndrome with diarrhea Social History [...] Upcoming Encounters Date Type Department Care Team ([facility] Contact Info) Description 08/22/2024 2:00 PM EDT Medication Management [facility] [address] [place] [address] Estela Warren, PharmD [address] [place] [address] 08/28/2024 10:15 AM EDT Office Visit [facility] [address] [place] [address] Earlene Beck MD [address] [place] [address] documented as of this encounter Visit Diagnoses Diagnosis Irritable bowel syndrome with diarrhea Irritable bowel syndrome documented in this encounter Care Teams Soaking Pits Supervisor Relationship Specialty Start Date End Date Earlene Beck MD [address] [place] [address] PCP - General Family Medicine 02/26/20 documented as of this encounter
--- OUTSIDE RECORDS SUMMARY | 2024-07-23 18:41 | XMS_ITS | Encounter Summary ---
Author Organization [employer] [facility] Address [address] [place] [address] [address] [place] [address] Care Team Providers Care Medical Detail Representative Name Role Phone Earlene Beck MD Primary Care Provider [phone] Encounter Details Date Type Department Care Team (Latest Contact Info) Description 05/09/2018 Abstract [facility] CONVERSIONS Dental, Provider, DDS Social [...] 08/22/2024 2:00 PM EDT Medication Management [facility] [address] [place] [address] Estela Warren, PharmD [address] [place] [address] 08/28/2024 10:15 AM EDT Office Visit [facility] [address] [place] [address] Earlene Beck MD [address] [place] [address] documented as of this encounter Visit Diagnoses Not on filedocumented in this encounter Care Teams Medical Detail Representative Relationship Specialty Start Date End Date Earlene Beck MD [address] [place] [address] PCP - General Family Medicine 02/26/20 documented as of this encounter
== END 2024-07-23 15:24 | disposition home or self-care (01) ==
LOC: HO.HPS 14:58
PROVIDERS: PCP Student in an Organized Health Care Education/Training Program; Visit Provider Internal Medicine Pulmonary Disease
DX: J44.9 Chronic obstructive pulmonary disease, unspecified (principal); Z87.891 Personal history of nicotine dependence; Z01.811 Encounter for preprocedural respiratory examination
CPT/HCPCS: 99214

== ENCOUNTER → 2024-07-23 14:57 | Outpatient (BNVA) | payer OTHER, SELFPAY | PROVIDERS: PCP Student in an Organized Health Care Education/Training Program; Visit Provider Internal Medicine Pulmonary Disease | DX: Z01.811 Encounter for preprocedural respiratory examination (principal); J44.9 Chronic obstructive pulmonary disease, unspecified; Z87.891 Personal history of nicotine dependence | CPT/HCPCS: 99212 ==

== ENCOUNTER 2024-07-31 10:30 | Day surgery (SDC) | payer OTHER, SELFPAY ==
--- OUTSIDE RECORDS SUMMARY | 2024-06-18 14:42 | XMS_ITS | Clinical Summary ---
Author Organization [employer] Address [address] [place] [address] 7t [place] [address] Care Team Providers Care Certified Fire Investigator Name Role Phone Earlene Beck MD Primary Care Provider [phone] Allergies Active Allergy Reactions Criticality Noted Date [...] CHEW 90 tablet 11 023 Active Umeclidinium Sharon (Incruse Ellipta) 62.5 MCG/ACT aerosol powderIndications :Chronic obstructive pulmonary disease, unspecified COPD type (CMS/HCC) INHALE 1 PUFF DAILY AT THE SAME TIME EACH DAY IN THE MORNING 1 each 3 023 Active ammonium lactate (Lac-Hydrin) 12 % lotion APPLY ON FEET ONCE DAILY 226 g 11 023 Active Blood Glucose Monitoring Suppl (Cooper's ClassicsStyle Har[place] Lite) w/Device kit 023 Active Viberzi 75 [...] not taking.Reported on 04/12/2024 Continuous Blood Gluc Development Manager (FreeStyle Hetal 2 [place]) deviceIndications :Type 2 diabetes mellitus with diabetic neuropathy, with long-term current use of insulin ([facility]) Use to monitor interstitial glucose [...] neuropathy, with long-term current use of insulin ([facility]) TEST BLOOD SUGAR UP TO THREE TIMES DAILY DIRECTED 100 strip Active Easy Touch Lancets 33G/Twist miscIndications:T ype 2 diabetes mellitus with diabetic neuropathy, with long-term current use of insulin ([facility]) TEST BLOOD SUGAR THREE TIMES [...] BEDTIME 4.5 mL 3 Active Continuous Glucose Development Manager (FreeStyle Hetal 2 [place]) device Scan sensor every 8 hours 1 [...] procedure [facility] Type 2 diabetes mellitus without complication 12/26/19 18 10/04/2022 Encounters * This document contains information received from the source organization and may not represent a complete record from that organization. Date Type Department Care Team Description 06/14/2024 Telephone [facility] MEDICINE [address] [place] [address] Earlene Beck MD Pre-op Exam 05/31/2024 Refill [facility] CHC MED & PEDS [address] [place] [address] Earlene Beck MD Osteoarthritis of multiple joints, unspecified osteoarthritis type; Irritable bowel syndrome with diarrhea 05/02/2024 Refill [facility] MED & PEDS 505 [place] [address] Earlene Beck MD Chronic obstructive pulmonary disease, unspecified COPD type (CMS/HCC) 04/29/2024 Orders Only [facility] CHC MED & PEDS [address] [place] [address] Kat Andino MD 04/15/2024 Telephone [facility] MEDICINE [address] [place] [address] Mera Cordova, gun repair clerk 04/12/2024 2:30 PM EST Office Visit [facility] OPTOMETRY [address] [place] [address] Ralph, Clarisa, OD Diabetes type 2, no ocular involvement (CMS/HCC) (Primary Dx); Chorioretinal scar, left eye; Early cataracts, bilateral; Punctal stenosis, acquired, left; Presbyopia 04/12/2024 Travel 04/12/2024 Telephone [facility] MED & PEDS 505 [place] [address] Earlene Beck MD 04/11/2024 8:30 AM EST Office Visit [facility] MED & PEDS 505 [place] [address] Earlene Beck MD Chronic obstructive pulmonary disease, unspecified COPD type (CMS/HCC) (Primary Dx); Type 2 diabetes mellitus with diabetic neuropathy, with long-term current use of insulin (CMS/HCC); Encounter for immunization; Polyneuropathy associated with underlying disease (CMS/HCC) 04/11/2024 Travel 04/07/2024 Refill [facility] CHC MED & PEDS [address] [place] [address] Earlene eBck MD Osteoarthritis of multiple joints, unspecified osteoarthritis type; Irritable bowel syndrome with diarrhea 04/05/2024 Refill [facility] CHC MED & PEDS [address] [place] [address] Earlene Beck MD 03/30/2024 Orders Only [facility] External Provider, [facility] 03/26/2024 Travel 03/22/2024 Patient Outreach [facility] MED & PEDS 505 [facility] [place] [address] Earlene Beck MD Pre-visit Planning ([facility] unable to reach [facility]) from Last 3 Months Immunizations Name Administration [...] 04/11/2024 8:51 AM EST Plan of Treatment Upcoming Encounters Date Type Department Care Team (Late st Contact Info) Description 08/28/2024 10:15 AM EDT Office Visit [facility] MED & PEDS [address] [place] [address] Earlene Bekc MD 505 [place] [address] Health Maintenance Due Date Last Done Comments [...] neuropathy, with long-term current use of insulin ([facility]) HEPATIC FUNCTION PANEL Routine 04/12/2024 9:12 AM EST Type 2 diabetes mellitus with diabetic neuropathy, with long-term current use of insulin ([facility]) BASIC METABOLIC PANEL Routine 04/12/2024 9:12 AM EST Type 2 diabetes mellitus with diabetic neuropathy, with long-term current use of insulin ([facility]) POCT GLUCOSE Routine 04/11/2024 8:54 AM EST Type 2 diabetes mellitus with diabetic neuropathy, with long-term current use of insulin ([facility]) HEMOGLOBIN A1C Routine 04/10/2024 9:26 AM EST MR SHOULDER WO CONTRAST RIGHT Routine 03/30/2024 11:09 AM EST from Last 3 Months Results * (ABNORMAL) Hepatic Function Panel (04/12/2024 9:12 AM EST) Bilirubin, Total 0.3 0.0 - 1.0 mg/dL [facility] Bilirubin, Direct 0.2 0.0 - 0.5 mg/dL [facility] Aspartate Amino Transferase 22 5 - 37 U/L [facility] Alanine Aminotransferase 11 0 - 40 U/L [facility] Total Protein 6.2(L) 6.5 - 8.0 g/dL [facility] Albumin Level 3.7 3.5 - 5.0 g/dL [facility] Alkaline Phosphatase 71 39 - 117 U/L [facility] Blood Venous blood specimen / Unknown 04/12/2024 9:12 AM EST 04/12/2024 2:18 PM EST Earlene Beck MD LAB BLOOD ORDERABLES Final Resul t Performing Organization Address [facility] de Phone Number [facility] [address] [place] [phone] * (ABNORMAL) Lipid Panel, Standard (04/12/2024 9:12 AM EST) Triglycerides 54 <150 mg/dL [facility] Comment:Desirable Triglyceri de: less than 150 mg/dLBorderline High Triglyceride 150-199 mg/dLHigh Triglyceride: 200-499 mg/dLVery High Triglyceride: greater than or equal to 5OO mg/dL Cholesterol 98 <200 mg/dL [facility] Comment:Desirable Cholestero l: less than 200 mg/dLBorderline High Cholesterol: 200-239 mg/dLHigh Cholesterol: greater than 239 mg/dL LDL Cholesterol Calculated 55 <100 mg/dL [facility] Comment:Desirable LDL: less than 100 mg/dLNear Optimal/Above Optimal LDL: 110- 129 mg/dLBorderline High LDL: 130-159 mg/dLHigh LDL: 160-189 mg/dLVery High LDL: greater than or equal to 190 mg/dL HDL Cholesterol 33(L) >40 mg/dL [facility] Comment:Desirable HDL: great er than 40 mg/dL Note: This HDL assay may give artificially low results in patients with liver disease. Blood Venous blood specimen / Unknown 04/12/2024 9:12 AM EST 04/12/2024 2:18 PM EST us Earlene Beck MD LAB BLOOD ORDERABLES Final Resul t Performing Organization Address [facility] Co de Phone Number [facility] [address] [place] [phone] * (ABNORMAL) Basic Metabolic Panel (04/12/2024 9:12 AM EST) Sodium 141 135 - 145 mmol/L [facility] Potassium 5.0 3.3 - 5.1 mmol/L [facility] Chloride 105 96 - 108 mmol/L [facility] Carbon Dioxide 30(H) 22 - 29 mmol/L [facility] Anion Gap 11(L) 12 - 20 [facility] Urea Nitrogen (BUN) 13 9 - 16 mg/dL [facility] Creatinine, Serum 0.99 0.5 - 1.4 mg/dL [facility] Estimated Glomerular Filt Rate >60 [facility] Comment:Chronic Kidney Disea se: Estimated GFR < 60 mL/min/1.35o4Xdmfdg Kidney Disease: Estimated GFR < 15 mL/min/1.73m2 Glucose 227(H) 60 - 115 mg/dL [facility] Calcium 8.8 8.4 - 10.2 mg/dL [facility] Blood Venous blood specimen / Unknown 04/12/2024 9:12 AM EST 04/12/2024 2:18 PM EST Result [facility] Earlene Beck MD LAB BLOOD ORDERABLES Final Resul t [facility] [address] [place] [phone] * (ABNORMAL) POCT Glucose (04/11/2024 8:54 AM EST) Glucose Blood, POC 399(A) 60 - 200 mg/dL QC Media Lot # [id number] Lot# Expiration Date Blood Capillary blood specimen / Unknown 04/11/2024 8:54 AM EST Earlene Beck MD POINT OF CARE TEST ENTER/EDIT OR DERABLES Final Result * Hemoglobin A1c (04/10/2024 9:26 AM EST) Blood Venous blood specimen / Unknown Historical Provider MD LAB BLOOD ORDERABLES Yasmeen page Result * MR Shoulder w/o Contrast Right (03/30/2024 11:09 AM EST) Anatomical Region Laterality Modality Upper Extremities, Shoulder Right Magn etic Resonance 03/30/2024 11:0 9 AM EST Narrative 04/11/2024 1:20 PM EST ? [facility] ?[address] ?[place] [address] ? Magnetic Resonance Report ? Signed ? Patient: Mosqueda,Aravind ?MR#: [id number] ?? [id number] ? : 1965 ?Acct:[id number] ? Age/Sex: 58 / M ?ADM Date: 03/30/24 ? Loc: HO.MRI ? Attending Dr: Tomy Vee MD ? Ordering Physician: Tomy Vee MD ?? Date of Service: 03/30/24 ?? Procedure(s): MR shoulder RT wo con ?? Accession Number(s): [id number] ? cc: Tomy Vee MD; Earlene Beck [...] Jones MD ??04/11/2024 01:18 PM EST ?? Workstation: [id number] ? Dictated By: ?Matthew Jones MD ? Signed By: ?<Electronically signed by Matthew Jones MD in OV> ?04/11/24 1318 ? DD/ 1109 ? TD/TT: 03/30/24 1137 ? Economic Adviser: SR ? Procedure Note Josh, Image - 04/12/2024 [place] [address] Magnetic Resonance Report Signed Patient: Salvatore Mosqueda#: [id number] : 1965Acct:[id number] Age/Sex: 58 / MADM Date: 03/30/24 Loc: HO.MRI Attending Dr: Tomy Vee MD Ordering Physician: Tomy Vee MD Date of Service: 03/30/24 Procedure(s): MR shoulder RT wo con Accession Number(s): [id number] cc: Tomy Vee MD; Earlene Beck MD [...] by: Matthew Jones MD 04/11/2024 01:18 PM [facility] Dictated By: Matthew Jones MD Signed By: <Electronically signed by Matthew Jones MD in OV> 04/11/24 1318 DD/ 1109 TD/TT: 03/30/24 1137 Economic Adviser: [facility] External Provider IMG MRI PROCEDURES Edited Result - Final from Last [address] [place] [address] - [employer] Care Teams Certified Fire Investigator Relationship Specialty Start Date End Date Earlene Beck MD [address] [place] [address] PCP - General Family Medicine 02/26/20
--- OUTSIDE RECORDS SUMMARY | 2024-06-18 14:42 | XMS_ITS | Encounter Summary ---
Author Organization [facility] Address [address] [place] [address] 7t [place] [address] Care Team Providers Care Docket Clerk Name Role Phone Earlene Beck MD Primary Care Provider [phone] Reason for Visit * Reason Comments Med Refill Encounter Details Date Type Department Care Team (Late st Contact Info) Description 05/12/2022 Refill [facility] MED & PEDS [address] [place] [address] Earlene Beck MD 505 [place] [address] Irritable bowel syndrome with diarrhea; Type 2 [...] as of this encounter Plan of Treatment Upcoming Encounters Date Type Department Care Team (Late st Contact Info) Description 08/28/2024 10:15 AM EDT Office Visit [facility] CHC MED & PEDS [address] [place] [address] Earlene Beck MD [address] [place] [address] documented as of this encounter Visit Diagnoses Diagnosis Irritable bowel syndrome with diarrhea Irritable bowel syndrome Type 2 diabetes mellitus without complications (CMS/HCC) documented in this encounter Care Teams Docket Clerk Relationship Specialty Start Date End Date Earlene Beck MD [address] [place] [address] PCP - General Family Medicine 02/26/20 documented as of this encounter
--- OUTSIDE RECORDS SUMMARY | 2024-06-18 14:42 | XMS_ITS | Encounter Summary ---
Author Organization [employer] [facility] Address [address] [place] [address] 7t [place] [address] Care Team Providers Care Hvac Estimator Name Role Phone Earlene Beck MD Primary Care Provider [phone] Reason for Visit * Reason Comments Med Refill Encounter Details Date Type Department Care Team ([facility] Contact Info) Description 05/12/2022 Refill [facility] MED & PEDS [address] [place] [address] Earlene Beck MD [address] [place] [address] Irritable bowel syndrome with diarrhea; Gastro-esophageal reflux [...] Encounters Date Type Department Care Team (Late Contact Info) Description 08/28/2024 10:15 AM EDT Office Visit [facility] CHC MED & PEDS [address] [place] [address] Earlene Beck MD [address] [place] [address] documented as of this encounter Visit Diagnoses Diagnosis Irritable bowel syndrome with diarrhea Irritable bowel syndrome Gastro-esophageal reflux disease without esophagitis documented in this encounter Care Teams Hvac Estimator Relationship Specialty Start Date End Date Earlene Beck MD [address] [place] [address] PCP - General Family Medicine 02/26/20 documented as of this encounter
--- OUTSIDE RECORDS SUMMARY | 2024-06-18 14:43 | XMS_ITS | Encounter Summary ---
Author Organization [facility] Address [address] [place] [address] 7t [place] [address] Care Team Providers Care Side Laster Name Role Phone Earlene Beck MD Primary Care Provider [phone] Encounter Details Date Type Department Care Team (Latest Contact Info) Description 05/09/2018 Abstract [facility] CONVERSIONS Dental, Provider, DDS Social History [...] Description 08/28/2024 10:15 AM EDT Office Visit [facility] CHC MED & PEDS [address] [place] [address] Earlene Beck MD [address] [place] [address] documented as of this encounter Visit Diagnoses Not on filedocumented in this encounter Care Teams Side Laster Relationship Specialty Start Date End Date Earlene Beck MD [address] [place] [address] PCP - General Family Medicine 02/26/20 documented as of this encounter
--- OUTSIDE RECORDS SUMMARY | 2024-06-18 14:43 | XMS_ITS | Clinical Summary ---
Author Organization [facility] Address [address] [place] [address] Phone Care Team Providers Care Heel Packer Name Role Phone Earlene Beck MD Primary Care Provider [phone] Allergies Active Allergy Reactions Criticality Noted Date Comments Naproxen 03/25/2024 Medications clotrimazole (LOTRIMIN) 1 % cream Apply topically 2 (two) times a day. 30 g 3 5 06/30/19 25 Active ciclopirox (LOPROX) 0.77 % gel Apply topically 2 (two) times a day. 45 g 5 08/29/19 25 Active Active Problems Problem Noted Date Diagnosed Date Diabetic neuropathy, type II diabetes mellitus 1 05/18/2023 Long-term insulin use in type 2 diabetes 024 Seizure 03/18/2024 COPD (chronic obstructive pulmonary disease) Encounters Date Type Department Care Team Description 05/30/2024 9:30 AM EST Office Visit Orthopedic [facility] [address] [phone] Oracio Smalls DPM Dermatophytosis of nail (Primary Dx); Diabetic mononeuropathy simplex (CMS/HCC); Tinea pedis of both feet 03/25/2024 2:15 PM EST Office Visit [facility] [address] [phone] Oracio Smalls DPM Diabetic mononeuropathy simplex (CMS/HCC) (Primary Dx); Dermatophytosis of nail; Pain in toe of right foot; Pain in toe of left foot from Last 3 Months Social History Tobacco Use Types Packs/Day Years Used Date Smoking Tobacco: Never Assessed Sex and Gender Information Value Date Recorded Sex Assigned at Not on file Legal Sex Male 11:38 AM EDT Gender Identity Not on file Sexual Orientation Not on file Last Filed Vital Signs [...] Upcoming Encounters Date Type Department Care Team ([facility] st Contact Info) Description 08/01/2024 1:00 PM EDT Office Visit Orthopedic Surgery - [place] [address] [phone] Oracio Smalls, DPM [address] [address] Health Maintenance Due Date Last Done Comments [...] Completed 04/11/2024, 01/12/2017, 01/21/2009, Additional history exists Pneumococcal Vaccine: Pediatrics (0 [...] patient's age to complete this topic Meningococcal B Vacine Aged Out No lo nger eligible based on patient's age to complete this topic RSV Immunization Patients Under 20 months Aged Out No longer eligible based on patient's age to complete this topic Varicella Vaccines Aged Out No longer eligible based on patient's age to complete this topic Insurance MEDICARE Member Subscriber Plan / Payer (Ef fective 2016-Present) Name:Aravind Mosqueda Relation to Subscriber:Self Name:Aravind Mosqueda Payer ID:[id number] Group ID:[id number] Type:Not on file Address: [place] [address] [address] [address] Care Teams Heel Packer Relationship Specialty Start Date End Date Earlene Beck MD [address] [place] [address] PCP - General 12/27/23
--- OUTSIDE RECORDS SUMMARY | 2024-06-18 14:43 | XMS_ITS | Encounter Summary ---
Author Organization [employer] Address [address] 7t [place] [address] Care Team Providers Care Cellophane Wrapping Examiner Name Role Phone Earlene Beck MD Primary Care Provider [phone] Reason for Visit * Reason Onset Date Comments Pre-op Exam 06/14/2024 Encounter Details Date Type Department Care Team ([facility] st Contact Info) Description 06/14/2024 Telephone [facility] MEDICINE [address] [place] [address] Earlene Beck MD [address] [place] [address] Pre-op Exam Social History Tobacco Use Types Packs/Day Years [...] t he electric, gas, oil or water [employer] threatened to shut off services in your home? No 02/13/2023 Sex and Gender Information Value Date Recorded Sex Assigned at Male 02/28/2022 10:15 AM EDT Legal Sex Male 10:15 AM EDT Gender Identity Male 02/28/2022 10:15 AM EDT Sexual Orientation Choose not to disclose 2021 10:15 AM EDT documented as of this encounter Miscellaneous Notes * Telephone Encounter - Karen Zavala - 06/14/2024 9:24 AM EST Date of Surgery: 07/31 Surgical procedure being done: Right Rotator Cuff Surgery Type of anesthesia: general anesthesia Lab needed: Yes EKG: No Surgeon's name: Tomy Vee Facility name: [facility] Surgeon's office number: [phone] Surgeon's office fax number: [phone] Contact name (person you spoke with): Mey Last office note from surgeon requested: Yes Send Message to Sangeetha Perez and Jenaro Turner documented in this encounter Plan of Treatment Upcoming Encounters Date Type Department Care Team (Late st Contact Info) Description 08/28/2024 10:15 AM EDT Office Visit [facility] MED & PEDS [address] [place] [address] Earlene Beck MD 505 [place] [address] documented as of this encounter Visit Diagnoses Not on filedocumented in this encounter Care Teams Cellophane Wrapping Examiner Relationship Specialty Start Date End Date Earlene Beck MD [address] [place] [address] PCP - General Family Medicine 02/26/20 documented as of this encounter
--- OUTSIDE RECORDS SUMMARY | 2024-06-18 14:43 | XMS_ITS | Encounter Summary ---
Author Organization [facility] [facility] Address [address] [place] [address] 7t [place] [address] Care Team Providers Care Cold Storage Worker Name Role Phone Earlene Beck MD Primary Care Provider [phone] Encounter Details Date Type Department Care Team (Latest Contact Info) Description 11/09/2018 Abstract [facility] CONVERSIONS Dental, Provider, DDS Social [...] Description 08/28/2024 10:15 AM EDT Office Visit [facility] MED & PEDS [address] [place] [address] Earlene Beck MD 505 [place] [address] documented as of this encounter Visit Diagnoses Not on filedocumented in this encounter Care Teams Cold Storage Worker Relationship Specialty Start Date End Date Earlene Beck MD [address] [place] [address] PCP - General Family Medicine 02/26/20 documented as of this encounter
--- OUTSIDE RECORDS SUMMARY | 2024-06-18 14:43 | XMS_ITS | Encounter Summary ---
Author Organization [facility] Address [address] [place] [phone] Care Team Providers Care Machine Builder Name Role Phone Earlene Beck MD Primary Care Provider [phone] Reason for Visit * Reason Comments Follow-up Diabetic foot care Encounter Details Date Type Department Care Team ([facility] st Contact Info) Description 05/30/2024 9:30 AM EST Office Visit [facility] [place] [address] [phone] Oracio Smalls, DPM [address] [address] Dermatophytosis of nail (Primary Dx); Diabetic mononeuropathy simplex (CMS/HCC); Tinea pedis of both feet Social History Tobacco Use Types Packs/Day Years Used Date Smoking Tobacco: Never Assessed Sex and Gender Information Value Date Recorded Sex Assigned at Not on file Legal Sex Male 11:38 AM EDT Gender Identity Not on file Sexual Orientation Not on file documented as of this [...] in this encounter Ordered Prescriptions Prescription Sig Dispense Quantity Refills Last Filled Start Date End Date ciclopirox (LOPROX) 0.77 % gel Apply topically 2 (two) times a day. 45 g 05/30/2024 clotrimazole (LOTRIMIN) 1 % cream Apply topically 2 (two) times a day. 30 g 3 05/30/2024 5 documented in this encounter Progress Notes * [...] Diagnosis Diabetic neuropathy, type II diabetes mellitus ([facility]) Long-term insulin use in type 2 diabetes ([facility]) Seizure ([facility]) COPD (chronic obstructive pulmonary disease) ([facility]) SOCIAL HISTORY: Social History Tobacco Use Smoking [...] PM EDT Office Visit [facility] [place] [address] [phone] Oracio Smalls DPM [address] [address] documented as of this encounter Visit Diagnoses Diagnosis Dermatophytosis of nail- Primary Diabetic mononeuropathy simplex (CMS/HCC) Type II or unspecified type diabetes mellitus with neurological manifestations, not stated as uncontrolled Tinea pedis of both feet documented in this encounter Care Teams Machine Builder Relationship Specialty Start Date End Date Earlene Beck MD [address] [place] [address] PCP - General 12/27/23 documented as of this encounter
--- OUTSIDE RECORDS SUMMARY | 2024-06-18 14:43 | XMS_ITS | Encounter Summary ---
Author Organization [employer] [facility] Address [address] [place] [address] 7 [place] [address] Care Team Providers Care Enrollment Advisor Name Role Phone Earlene Beck MD Primary Care Provider [phone] Reason for Visit * Reason Comments Med Refill Encounter Details Date Type Department Care Team (Late Contact Info) Description 01/10/2023 Refill [facility] MED & PEDS [address] [place] [address] Marie Reeves MD 505 [place] [address] Irritable bowel syndrome with diarrhea Social History [...] 08/28/2024 10:15 AM EDT Office Visit [facility] MED & PEDS [address] [place] [address] Earlene Beck MD 505 [place] [address] documented as of this encounter Visit Diagnoses Diagnosis Irritable bowel syndrome with diarrhea Irritable bowel syndrome documented in this encounter Care Teams Enrollment Advisor Relationship Specialty Start Date End Date Earlene Beck MD [address] [place] [address] PCP - General Family Medicine 02/26/20 documented as of this encounter
--- OUTSIDE RECORDS SUMMARY | 2024-06-18 14:43 | XMS_ITS | Encounter Summary ---
Author Organization [facility] Address [address] [place] [address] 7 [place] [address] Care Team Providers Care Hospital Chaplain Name Role Phone Earlene Beck MD Primary Care Provider [phone] Reason for Visit * Reason Comments Med Refill Encounter Details Date Type Department Care Team (Late Contact Info) Description 01/07/2023 Refill [facility] MED & PEDS [address] [place] [address] Marie Reeves MD 505 [place] [address] Osteoarthritis of multiple joints, unspecified osteoarthritis type [...] Description 08/28/2024 10:15 AM EDT Office Visit [facility] MED & PEDS [address] [place] [address] Earlene Beck MD 505 [place] [address] documented as of this encounter Visit Diagnoses Diagnosis Osteoarthritis of multiple joints, unspecified osteoarthritis type documented in this encounter Care Teams Hospital Chaplain Relationship Specialty Start Date End Date Earlene Beck MD 230 [place] [address] PCP - General Family Medicine 02/26/20 documented as of this encounter
--- OUTSIDE RECORDS SUMMARY | 2024-06-18 14:43 | XMS_ITS | Data Portability ---
Author Organization [employer] Address [address] [place] [phone] Care Team Providers Care Patient Safety Coordinator Name Role Phone [facility] Referring Provider [facility] Referring Provider Assessment Encounter Date Assessment Date Assessment LastModified by Organization Details LastModified Time 08/23/2022 08/23/2022 I have reviewed and agree with the Assessment and Plan as documented by the Detention Sergeant. I provided real-time medical direction via phone [...] [id number] Theodore Yun MD Main - [facility] [address] [place] [phone] 08/23/2022 13:24:48 08/25/2022 11:38:02 Cough [id number] R05.9 Health Concerns Section Related Observation LastModified by Organization Detai ls LastModified Time None Recorded Concern Status LastModified by Organization Details LastModified Time None Recorded Advance Directives Directive None Recorded Payers Encounter Date Sequence Insurance Name Policy Number Policy Ford Covered Member ID Ford Member ID Guarantor Name 08/23/2022 1 [facility] - DOS PRIOR TO 2022 - DUAL ELIGIBLE (MEDICARE REPLACEMENT/ADV ANTAGE - HMO) Aravind Mosqueda [id number] Aravind Mosqueda Notes Date Note Type Note [...] .................. .................. .................. .................. .................. .................. ............... Detention Sergeant Note From Jory Yoon: Community Detention Sergeant Earlene Yoon SC6 dispatched to a [facility] for a 57 yom C/O a [...] ............... Disposition: Fulfilled Theodore Yun MD [address] [facility], [place], [address], [employer] 08/23/2022 17:10:22
--- OUTSIDE RECORDS SUMMARY | 2024-06-18 14:43 | XMS_ITS | Encounter Summary ---
Author Organization [employer] Address [address] [facility] 7t [place] [address] Care Team Providers Care Dynamite Reclaimer Name Role Phone Earlene Beck MD Primary Care Provider [phone] Reason for Visit * Reason Comments Med Refill Encounter Details Date Type Department Care Team ([facility] st Contact Info) Description 05/31/2024 Refill [facility] MED & PEDS 505 [place], [place] [phone] Earlene Beck MD 505 [place] [address] Osteoarthritis of multiple joints, unspecified osteoarthritis type; [...] t he electric, gas, oil or water [employer] threatened to shut off services in your [...] 10:15 AM EDT Office Visit [facility] MED & PEDS 505 [place] [address] Earlene Beck MD 505 [place] [address] documented as of this encounter Visit Diagnoses Diagnosis Osteoarthritis of multiple joints, unspecified osteoarthritis type Irritable bowel syndrome with diarrhea Irritable bowel syndrome documented in this encounter Care Teams Dynamite Reclaimer Relationship Specialty Start Date End Date Earlene Beck MD [address] [place] [address] PCP - General Family Medicine 02/26/20 documented as of this encounter
--- OUTSIDE RECORDS SUMMARY | 2024-06-18 14:43 | XMS_ITS | Encounter Summary ---
Author Organization [employer] Address [address] [facility] 7t [place] [address] Care Team Providers Care Rehab Services Aide Name Role Phone Earlene Beck MD Primary Care Provider [phone] Encounter Details Date Type Department Care Team (Latest Contact Info) Description 06/08/2020 Abstract [facility] CONVERSIONS Dental, Provider, DDS Social History [...] Description 08/28/2024 10:15 AM EDT Office Visit [facility] MED & PEDS 505 [place] [address] Earlene Beck MD 505 [place] [address] documented as of this encounter Visit Diagnoses Not on filedocumented in this encounter Care Teams Rehab Services Aide Relationship Specialty Start Date End Date Earlene Beck MD [address] [place] [address] PCP - General Family Medicine 02/26/20 documented as of this encounter
--- OUTSIDE RECORDS SUMMARY | 2024-06-18 14:43 | XMS_ITS | Encounter Summary ---
Author Organization [employer] Address [address] 7[address] [place] [address] Care Team Providers Care Satellite Installation Technician Name Role Phone Earlene Beck MD Primary Care Provider [phone] Reason for Visit * Reason Onset Date Comments Lab Orders 02/22/2024 Encounter Details Date Type Department Care Team ([facility] st Contact Info) Description 02/22/2024 Telephone [facility] MEDICINE 230 [place] [address] Earlene Beck MD [address] [place] [address] Lab Orders Social History Tobacco Use Types [...] Description 08/28/2024 10:15 AM EDT Office Visit [facility] MED & PEDS 505 [place] [address] Earlene Beck MD 505 [place] [address] documented as of this encounter Visit Diagnoses Not on filedocumented in this encounter Care Teams Satellite Installation Technician Relationship Specialty Start Date End Date Earlene Beck MD [address] [place] [address] PCP - General Family Medicine 02/26/20 documented as of this encounter
--- OUTSIDE RECORDS SUMMARY | 2024-06-18 14:43 | XMS_ITS | Encounter Summary ---
Author Organization [employer] Address [address] [facility] 7t [place] [address] Care Team Providers Care Battery Inspector Name Role Phone Earlene Beck MD Primary Care Provider [phone] Reason for Visit * Reason Comments Med Refill Encounter Details Date Type Department Care Team ([facility] st Contact Info) Description 01/04/2024 Refill [facility] CH[facility] MED & PEDS 505 [place], [place] [phone] Emelina Carmona MD 505 [place] [address] Social History Tobacco Use Types Packs/Day Years [...] Description 08/28/2024 10:15 AM EDT Office Visit [facility] MED & PEDS 505 [place] [address] Earlene Beck MD 505 [place] [address] documented as of this encounter Visit Diagnoses Not on filedocumented in this encounter Care Teams Battery Inspector Relationship Specialty Start Date End Date Earlene Beck MD [address] [place] [address] PCP - General Family Medicine 02/26/20 documented as of this encounter
--- OUTSIDE RECORDS SUMMARY | 2024-06-18 14:43 | XMS_ITS | Encounter Summary ---
Author Organization [employer] Address [address] 7[address] [place] [address] Care Team Providers Care Want Ad Supervisor Name Role Phone Earlene Beck MD Primary Care Provider [phone] Encounter Details Date Type Department Care Team ([facility] st Contact Info) Description 04/29/2024 Orders Only [facility] CH[facility] MED & PEDS [address] [place] [address] ProviderKat MD Social History Tobacco Use Types [...] 08/28/2024 10:15 AM EDT Office Visit [facility] & PEDS 505 [place] [address] Earlene Beck MD 505 [place] [address] documented as of this encounter Procedures Procedure Name Priority Date/Time Associated Diagnosis Comments HEMOGLOBIN A1C Routine 04/10/2024 9:26 AM EST documented in this encounter Results * Hemoglobin A1c (04/10/2024 9:26 AM EST) Blood Venous blood specimen / Unknown Historical Provider LAB BLOOD ORDERABLES Yasmeen l Result documented in this encounter Visit Diagnoses Not on filedocumented in this encounter Care Teams Want Ad Supervisor Relationship Specialty Start Date End Date Earlene Beck MD [address] [place] [address] PCP - General Family Medicine 02/26/20 documented as of this encounter
[2024-07-29 08:51] VITALS: BMI 20.4
--- NOTE | 2024-07-29 13:55 | P.CONAN_ITS ---
Documented by User: Supriya Chong NP 07/29/24 14:00 HPI - Anesthesia Eval Consult details Narrative: 59yo M for Right Arthroscopic Rotator Cuff Repair Cardiac optimized for surgery. [facility] for: history of hypertension, hyperlipidemia, diabetes, takotsubo cardiomyopathy, nonobstructive coronary artery disease, dilated aortic root Pulmo optimized. Follow[facility] pul[facility] for COPD Anesthesia Pre-Procedure Meds Is the patient on any of the following meds?: SGLT2 Inhib PMFSH Active Problems Active Problems: All Active Problems Encounter for preoperative pulmonary examination (Acute) Dysfunction of right rotator cuff (Acute) Personal history of nicotine dependence (Acute) Left carpal tunnel syndrome (Acute) Trigger finger, left middle finger (Acute) Coronary atherosclerosis (Acute) COPD (chronic obstructive pulmonary disease) (Acute) Status post chest tube placement (Acute) Pulmonary nodules (Acute) Back pain (Acute) Essential hypertension (Acute) Diabetes mellitus (Acute) Cardiomyopathy (Acute) Dilated aortic root (Acute) Takotsubo cardiomyopathy (Acute) H/O cardiac catheterization (Acute) Preop cardiovascular exam (Acute) Patellofemoral pain syndrome of right knee (Acute) Diarrhea (Acute) Periumbilical abdominal pain (Acute) Irritable bowel syndrome with diarrhea (Acute) GERD (gastroesophageal reflux disease) (Acute) Painful arc syndrome of right shoulder (Acute) SEN (dyspnea on exertion) (Acute) Bilateral shoulder pain (Acute) Subacromial impingement of right shoulder (Acute) Long-term insulin use in type 2 diabetes (Acute) Diabetes type 2, uncontrolled (Acute) Type 2 diabetes mellitus with diabetic polyneuropathy (Acute) Hyperlipidemia LDL goal <70 (Acute) Past Medical History Medical History Long-term insulin use in type 2 diabetes Diabetes type 2, uncontrolled Tobacco abuse Sleep apnea Myocardial infarction BPH (benign prostatic hyperplasia) Depression Thrombocytopenia Alcohol abuse Peripheral neuropathy COPD (chronic obstructive pulmonary disease) Seizures Essential hypertension Hyperlipidemia LDL goal <70 Type 2 diabetes mellitus with diabetic polyneuropathy Family History Family History Father Cancer Diabetes Mother CVD (cardiovascular disease) Family history of problems with anesthesia: No Surgical History Surgical History Hx of shoulder surgery History of esophagogastroduodenoscopy (EGD) H/O colonoscopy History of arthroscopic surgery of shoulder Hx of hernia repair Hx of pneumonectomy Hx of knee surgery History of Problems with Anesthesia: No Social History Social History Household Members: Spouse Alcohol intake: never Patient Tobacco Use Status: Former Tobacco user Tobacco use type: Cigarette Years Smoked: 40 Use of substances other than those prescribed or required for medical reasons: No Are you DNR?: No Advance Directives: No Advance Directives Information Provided: Yes Current occupational status: unemployed Current occupation: [employer] Meds Allergies Allergy/AdvReac Type Severity Reaction Status Date / Time naproxen [From NAPROSYN] Allergy Mild HIVES Verified 07/23/24 15:15 Home Medications ?Medication ?Instructions ?Recorded ?Confirmed ?Last Taken ?Type atorvastatin 80 mg tablet 80 mg PO DAILY 03/17/20 07/31/24 Unknown History cholecalciferol (vitamin D3) 25 25 mcg PO QAM 03/17/20 07/31/24 Unknown History mcg (1,000 unit) tablet gabapentin 800 mg tablet 800 mg PO BID 03/17/20 07/31/24 Unknown History ipratropium 20 mcg-albuterol 100 1 puff inhalation QID 03/17/20 07/31/24 Unknown History mcg/actuation mist for inhalation lancets 33 gauge #100 ea 03/17/20 02/13/24 Unknown History mirtazapine 45 mg tablet 45 mg PO BEDTIME 03/17/20 07/31/24 Unknown History oxybutynin chloride 5 mg tablet 5 mg PO BID 03/17/20 07/31/24 Unknown History pen needle, diabetic 32 gauge x #50 ea 03/17/20 02/13/24 Unknown History blood sugar diagnostic (FreeStyle #10 ea 11/03/21 02/13/24 Unknown History Lite Strips) esomeprazole magnesium 20 mg 20 mg PO QAM 11/03/21 07/31/24 Unknown History capsule,delayed release ibuprofen 800 mg tablet 800 mg PO BID 02/24/22 07/31/24 Unknown History ammonium lactate 12 % lotion topical 07/20/22 02/13/24 Unknown History sertraline 100 mg tablet 100 mg PO DAILY 11/09/22 07/31/24 Unknown History insulin glargine U-300 conc 300 7 unit subcut DAILY 11/11/22 07/31/24 Unknown History unit/mL (1.5 mL) subcutaneous pen divalproex 500 mg tablet,delayed 500 mg PO BID 02/13/23 07/31/24 Unknown History release cetirizine 10 mg tablet 10 mg PO DAILY 02/13/24 07/31/24 Unknown History cholecalciferol (vitamin D3) 50 50 mcg PO DAILY 02/13/24 07/31/24 Unknown History mcg (2,000 unit) capsule dapagliflozin propanediol 5 mg 5 mg PO DAILY 02/13/24 07/31/24 Unknown History tablet (Farxiga) diclofenac sodium 1 % topical gel topical BID 02/13/24 02/13/24 Unknown History Exam Height,Weight and Vital Signs: Height 5 ft 9 in Weight 62.596 kg Pertinent Lab Results Pertinent Lab Results: Laboratory Tests 07/09/24 11:17 WBC 6.0 Hgb 13.4 L Hct 43.4 Plt Count 149 L Sodium 143 Potassium 4.2 Chloride 105 Carbon Dioxide 31 H BUN 12 Creatinine 0.88 Narrative Narrative: EKG 06/2024 NSR @ 67 ECHO 03/2024 Conclusions: - The left ventricular systolic function is normal. The calculated ejection fraction is 60% by biplane method. - No obvious valvular pathology seen on this study. Assessment and Plan Assessment Anesthesia Assessment: Chart Reviewed Final Anesthetic Review Family History of Problems with Anesthesia: No History of Problems with Anesthesia: No Documented by User: Carrie Khan MD 07/31/24 12:57 PMFSH Past Medical History Medical History Long-term insulin use in type 2 diabetes Diabetes type 2, uncontrolled Tobacco abuse Sleep apnea Myocardial infarction BPH (benign prostatic hyperplasia) Depression Thrombocytopenia Alcohol abuse Peripheral neuropathy COPD (chronic obstructive pulmonary disease) Seizures Essential hypertension Hyperlipidemia LDL goal <70 Type 2 diabetes mellitus with diabetic polyneuropathy Family History Family History Father Cancer Diabetes Mother CVD (cardiovascular disease) Surgical History Surgical History Hx of shoulder surgery History of esophagogastroduodenoscopy (EGD) H/O colonoscopy History of arthroscopic surgery of shoulder Hx of hernia repair Hx of pneumonectomy Hx of knee surgery Social History Social History Household Members: Spouse Alcohol intake: never Patient Tobacco Use Status: Former Tobacco user Tobacco use type: Cigarette Years Smoked: 40 Use of substances other than those prescribed or required for medical reasons: No Are you DNR?: No Advance Directives: No Advance Directives Information Provided: Yes Current occupational status: unemployed Current occupation: [employer] Meds Allergies Allergy/AdvReac Type Severity Reaction Status Date / Time naproxen [From NAPROSYN] Allergy Mild HIVES Verified 07/23/24 15:15 Home Medications ?Medication ?Instructions ?Recorded ?Confirmed ?Last Taken ?Type atorvastatin 80 mg tablet 80 mg PO DAILY 03/17/20 07/31/24 Unknown History cholecalciferol (vitamin D3) 25 25 mcg PO QAM 03/17/20 07/31/24 Unknown History mcg (1,000 unit) tablet gabapentin 800 mg tablet 800 mg PO BID 03/17/20 07/31/24 Unknown History ipratropium 20 mcg-albuterol 100 1 puff inhalation QID 03/17/20 07/31/24 Unknown History mcg/actuation mist for inhalation lancets 33 gauge #100 ea 03/17/20 02/13/24 Unknown History mirtazapine 45 mg tablet 45 mg PO BEDTIME 03/17/20 07/31/24 Unknown History oxybutynin chloride 5 mg tablet 5 mg PO BID 03/17/20 07/31/24 Unknown History pen needle, diabetic 32 gauge x #50 ea 03/17/20 02/13/24 Unknown History blood sugar diagnostic (FreeStyle #10 ea 11/03/21 02/13/24 Unknown History Lite Strips) esomeprazole magnesium 20 mg 20 mg PO QAM 11/03/21 07/31/24 Unknown History capsule,delayed release ibuprofen 800 mg tablet 800 mg PO BID 02/24/22 07/31/24 Unknown History ammonium lactate 12 % lotion topical 07/20/22 02/13/24 Unknown History sertraline 100 mg tablet 100 mg PO DAILY 11/09/22 07/31/24 Unknown History insulin glargine U-300 conc 300 7 unit subcut DAILY 11/11/22 07/31/24 Unknown History unit/mL (1.5 mL) subcutaneous pen divalproex 500 mg tablet,delayed 500 mg PO BID 02/13/23 07/31/24 Unknown History release cetirizine 10 mg tablet 10 mg PO DAILY 02/13/24 07/31/24 Unknown History cholecalciferol (vitamin D3) 50 50 mcg PO DAILY 02/13/24 07/31/24 Unknown History mcg (2,000 unit) capsule dapagliflozin propanediol 5 mg 5 mg PO DAILY 02/13/24 07/31/24 Unknown History tablet (Farxiga) diclofenac sodium 1 % topical gel topical BID 02/13/24 02/13/24 Unknown History Exam Airway Mallampati Class: III TM Dist: <=3cm Neck ROM: Limited Heart: rrr Lungs: cta Assessment and Plan Assessment Anesthesia Assessment: Anesthesia Plan Discussed Final Anesthetic Review NPO: Yes ASA Class: III Final Preanesthetic Review: No Changes in Pt Med Stat, Meds/Allgs Chart Reviewed, Consent Obtained/Reviewed and Anes Risks/Benef Reviewed Patient Risk: Intermediate Procedure Risk: Intermediate Anesthetic Plan Anesthetic Plan: GA, Regional Block and Agree w/ Assess. and Plan Disposition: Standard PACU
[2024-07-31 11:37] VITALS: BMI 20.2
[2024-07-31 11:46] VITALS: BP 135/86; PULSE 65; RESP 16; TEMP 36.8; O2SAT 98
[2024-07-31 12:06] LABS: Glucose, Whole Blood 231 mg/dL (60-115)
[2024-07-31] MEDS: Lactated Ringers 1,000 ML 100 ML IVCONT (12:16)
--- NOTE | 2024-07-31 12:21 | MHC.SHP ---
Pre-Procedural Eval Section A - 24 Hr Update-Section A only Date of Service: 07/31/24 The patient is an INPATIENT: No Changes since office visit: No Cold of Flu in the past 2 weeks, No New Medical Problems, No Changes in Medication and No Patient answered all questions The patient has been examined within 24 hours of the surgical procedure. The History & Physical has been completed within 30 days and I have reviewed it.: Yes Section B - Complete if H&P > 30 days Chief Complaint: Complete rotator cuff tear or rupture of right elizabeth Allergies: Allergies Allergy/AdvReac Type Severity Reaction Status Date / Time naproxen [From NAPROSYN] Allergy Mild HIVES Verified 07/23/24 15:15 Plan I have reviewed the history and physical and performed a pertinent physical examination on my patient. No changes have occurred unless specified. Time Spent With Patient Time: Total time managing care of this patient today ____ minutes.
[2024-07-31] MEDS: ceFAZolin Sodium/Dextrose,Iso 2 GM/50 ML PIGGYBACK IV (13:35)
[2024-07-31] MEDS: Acetaminophen 1,000 MG/100 ML PIGGYBACK 400 MG IV (14:00)
--- NOTE | 2024-07-31 14:30 | P.BOP_ITS ---
Brief Operative Note Date of Service: 07/31/24 Pre-op diagnosis: Right RTC tear Post-op diagnosis: other (Right shoulder bursitis, Right shoulder partial thickness RTC tea) Procedure: RTC repair and sub acromial bursectomy Implants: Regeneten bio inductive implant, large Surgeon: Tomy Vee MD Anesthesia: GETA and regional Was an Environment Coordinator used for this Procedure?: Yes Environment Coordinator: Estela Shields Estimated blood loss (mL): 20 IV fluids (mL): 800 Pathology: none sent Condition: stable Disposition: PACU
[2024-07-31 14:45] VITALS: BP 126/66; PULSE 75; RESP 14; TEMP 36.6; O2SAT 98
[2024-07-31 14:50] VITALS: BP 114/58; PULSE 69; RESP 16; O2SAT 97
[2024-07-31 14:55] VITALS: BP 126/86; PULSE 72; RESP 16; O2SAT 96
[2024-07-31 14:59] VITALS: BP 139/79; PULSE 68; RESP 16; O2SAT 96
[2024-07-31 15:15] VITALS: BP 143/82; PULSE 66; RESP 16; TEMP 36.3; O2SAT 96
--- NOTE | 2024-08-01 15:58 | W.PM.OPN ---
Operative Note Operative Note Date of Service: 07/31/24 Narrative: Date of Service: 07/31/24 Pre-op diagnosis: Right RTC tear Post-op diagnosis: other (Right shoulder bursitis, Right shoulder partial thickness RTC tear) Procedure: RTC repair and sub acromial bursectomy Implants: Regeneten bio inductive implant, large Surgeon: Tomy Vee MD Anesthesia: GETA and regional Was an Inside Technical Sales Representative used for this Procedure?: Yes Inside Technical Sales Representative: Estela Shields Estimated blood loss (mL): 20 IV fluids (mL): 800 Pathology: none sent Condition: stable Disposition: PACU Procedure in detail: Patient was brought to the operating room and placed the the beach chair position. All bony prominences were well padded and the limb was prepped and draped in standard sterile fashion. A time out was called to identify proper site, proper procedure and proper surgeon. IV antibiotics per weight were administered. I began by making a posterolateral stab incision with a 15 blade. A blunt trochar was placed into the glenohumeral joint and I insufflated the joint with saline and a 30 degree arthroscope was placed. I established an outside- in anterior portal just distal to the biceps tendon. I then began my inspection of the glenohumeral joint. There was mild degenerative SLAP tear at the biceps anchor. The labrum and cartilage surfaces were normal for the most part with mild and scattered grade 1 changes only. The subcapularis was intact. I debrided the loose cartilage of the glenoid and the mild degenerative labral tearing. There undersurface of the rotator cuff appeared normal. I then removed the trochar and entered the subacromial space. A direct lateral portal was then established and I performed a bursectomy. There was extensive bursitis and a prior acromioplasty. Once I had removed all the bursa the cuff was then examined. There was fraying of the supraspinatus with partial tearing of approximately 50%. There was no obvious full-thickness tears but the tissue was thin in places. Therefore I elected to place a large Regeneten bio inductive graft. This was placed via the lateral portal and an accessory posterolateral portal was established under direct visualization. This was used to use peek hubert to cover the lateral aspect of the supra and infraspinatus. This was further held in place by 1 far lateral bone staple. Once I was satisfied with the position I removed all instrumentation and took my final images. Portals were closed with nylon. Patient was placed in an abduction sling, extubated and brought to the recovery room in stable condition. There were no known complications.
== END 2024-07-31 15:37 | disposition home or self-care (01) ==
LOC: HO.SSS 10:31
PROVIDERS: PCP Student in an Organized Health Care Education/Training Program; Visit Provider Orthopaedic Surgery
PROC: (CPT 29827; principal; 2024-07-31 14:00)
DX: M75.111 Incomplete rotator cuff tear or rupture of right shoulder, not specified as traumatic (principal); M75.51 Bursitis of right shoulder; M25.511 Pain in right shoulder; M67.911 Unspecified disorder of synovium and tendon, right shoulder; M19.011 Primary osteoarthritis, right shoulder; J44.9 Chronic obstructive pulmonary disease, unspecified; I10 Essential (primary) hypertension; E78.5 Hyperlipidemia, unspecified; I51.81 Takotsubo syndrome; I42.9 Cardiomyopathy, unspecified; I25.2 Old myocardial infarction; R56.9 Unspecified convulsions; E11.42 Type 2 diabetes mellitus with diabetic polyneuropathy; Z79.4 Long term (current) use of insulin; Z79.84 Long term (current) use of oral hypoglycemic drugs; Z79.899 Other long term (current) drug therapy; Z88.6 Allergy status to analgesic agent; Z98.890 Other specified postprocedural states; Z87.891 Personal history of nicotine dependence; Z56.0 Unemployment, unspecified
CPT/HCPCS: 29827; 29823; 82947; C1713; C1763; J0131; J0171; J0665; J0690; J1100; J2003; J2250; J2371; J2405; J2704

== ENCOUNTER → 2024-07-31 10:30 | Outpatient (BNV) | payer OTHER, SELFPAY | PROVIDERS: PCP Student in an Organized Health Care Education/Training Program; Visit Provider Orthopaedic Surgery | DX: M75.111 Incomplete rotator cuff tear or rupture of right shoulder, not specified as traumatic (principal) | CPT/HCPCS: 29827 ==

== ENCOUNTER 2024-08-08 14:58 | Outpatient (AMB) | payer OTHER, SELFPAY ==
--- NOTE | 2024-08-08 14:59 | A.OFFVIS_ITS ---
Intake Visit Reasons: PO RT RTC 07/31/24 NE Intake Note: Aravind is a 59 year old - hand dominant male who presents today for a post op appointment s/p RT RTC 07/31/24 NE. Patient reports - . Allergies naproxen [From NAPROSYN] Allergy (Mild, Verified 07/23/24 15:15) HIVES HPI HPI PO RT RTC 07/31/24 NE: Details: Mr. Mosqueda is a 59-year-old male who presents the office today status post right shoulder rotator cuff repair on 07/31/[address] Vee. He presents today in the abduction sling positioned appropriately. He has not attended any physical therapy at this time. He reports that he has more pain than with the left shoulder ?clean out?. [facility] Medical History Long-term insulin use in type 2 diabetes Diabetes type 2, uncontrolled Tobacco abuse Sleep apnea Myocardial infarction BPH (benign prostatic hyperplasia) Depression Thrombocytopenia Alcohol abuse Peripheral neuropathy COPD (chronic obstructive pulmonary disease) Seizures Essential hypertension Hyperlipidemia LDL goal <70 Type 2 diabetes mellitus with diabetic polyneuropathy Surgical History Hx of shoulder surgery History of esophagogastroduodenoscopy (EGD) H/O colonoscopy History of arthroscopic surgery of shoulder Hx of hernia repair Hx of pneumonectomy Hx of knee surgery Family History Father Cancer Diabetes Mother CVD (cardiovascular disease) Social History Household Members: Spouse Alcohol intake: never Patient Tobacco Use Status: Former Tobacco user Tobacco use type: Cigarette Years Smoked: 40 Current occupational status: unemployed Current occupation: Right Handed Review of Systems Const All systems reviewed & are unremarkable except as noted in HPI and below Physical Exam Const General: cooperative, healthy appearing and no acute distress Resp Effort & Inspection: normal respiratory effort and able to speak in complete sentences Cardio Rate: regular rate Peripheral pulses: Peripheral pulses 2+ throughout Skin Lesions: no lesions Rashes: no rashes Extrem Other: Right shoulder incision sites are clean dry and intact. Sutures intact. No surrounding erythema or drainage. No signs of infection. Forward flexion and abduction to 45 degrees. External rotation to neutral. NVI. Assessment & Plan Assessment & Plan (1) Status post right rotator cuff repair: Code(s): Z98.890 - Other specified postprocedural states Category: Surgical Plan Mr. Mosqueda is a 59-year-old male who presents the office today status post right shoulder rotator cuff repair on 07/31/[address] Vee. He presents today in the abduction sling positioned appropriately. He has not attended any physical therapy at this time. He reports that he has more pain than with the left shoulder ?clean out?. While in the office today, this patient sutures were removed and Steri-Strips were applied. A referral to physical therapy has been made. He will continue in the abduction sling for a total of 6 weeks postoperatively. He will follow- up with Dr. Vee in 4 weeks, sooner if needed. Orders: Orders PT Evaluation and Treatment Today Z98.890 - Other specified postprocedural states Coding Level of Care Code Global (82593) Diagnoses Status post right rotator cuff repair Z98.890
--- OUTSIDE RECORDS SUMMARY | 2024-08-08 17:31 | XMS_ITS | Encounter Summary ---
Author Organization [facility] Address [address] [place] [address] 7t [place] [address] Care Team Providers Care E Commerce Merchant Name Role Phone Earlene Beck MD Primary Care Provider Reason for Visit * Reason Comments Med Refill Encounter Details Date Type Department Care Team ([facility] Contact Info) Description 01/10/2023 Refill [facility] MED & PEDS [address] [place] [address] Marie Reeves MD [address] [place] [address] Irritable bowel syndrome with diarrhea Social History [...] Upcoming Encounters Date Type Department Care Team ([facility] Contact Info) Description 08/22/2024 2:00 PM EDT Medication Management [facility] MED & PEDS [address] [place] [address] Estela Warren, PharmD [address] [place] [address] 08/28/2024 10:15 AM EDT Office Visit [facility] [address] [place] [address] Earlene Beck MD [address] [place] [address] documented as of this encounter Visit Diagnoses Diagnosis Irritable bowel syndrome with diarrhea Irritable bowel syndrome documented in this encounter Care Teams E Commerce Merchant Relationship Specialty Start Date End Date Earlene Beck MD [address] [place] [phone] PCP - General Family Medicine 02/26/20 documented as of this encounter
--- OUTSIDE RECORDS SUMMARY | 2024-08-08 17:31 | XMS_ITS | Encounter Summary ---
Author Organization [employer] [facility] Address [address] [place] [address] 7t [place] [address] Care Team Providers Care Pedorthist Name Role Phone Earlene Beck MD Primary Care Provider [phone] Reason for Visit * Reason Comments Med Refill Encounter Details Date Type Department Care Team (Late Contact Info) Description 05/12/2022 Refill [facility]EDS [address] [place] [address] Earlene Beck MD [address] [place] [address] Irritable bowel syndrome with diarrhea; Type 2 diabetes mellitus without complications ([facility]) Social History Tobacco Use Types Packs/Day Years [...] Description 08/22/2024 2:00 PM EDT Medication Management [facility] [address] [place] [address] Estela Warren, PharmD [address] [place] [address] 08/28/2024 10:15 AM EDT Office Visit [facility] MED & PEDS [address] [place] [address] Earlene Beck MD [address] [place] [address] documented as of this encounter Visit Diagnoses Diagnosis Irritable bowel syndrome with diarrhea Irritable bowel syndrome Type 2 diabetes mellitus without complications (CMS/HCC) documented in this encounter Care Teams Pedorthist Relationship Specialty Start Date End Date Earlene Beck MD [address] [place] [phone] PCP - General Family Medicine 02/26/20 documented as of this encounter
--- OUTSIDE RECORDS SUMMARY | 2024-08-08 17:31 | XMS_ITS | Encounter Summary ---
Author Organization [employer] Address [address] 7[address] [place] [address] Care Team Providers Care Pastry Cook Apprentice Name Role Phone Earlene Beck MD Primary Care Provider [phone] Reason for Visit * Reason Onset Date Comments Lab Orders 02/22/2024 Encounter Details Date Type Department Care Team ([facility] st Contact Info) Description 02/22/2024 Telephone [facility] [address] [place] [address] Earlene Beck MD [address] [place] [address] Lab Orders Social History Tobacco Use Types [...] 2:00 PM EDT Medication Management [facility] MED & PEDS [address] [place] [address] Estela Warren, PharmD [address] [place] [address] 08/28/2024 10:15 AM EDT Office Visit [facility] MED & PEDS [address] [place] [address] Earlene Beck MD [address] [place] [address] documented as of this encounter Visit Diagnoses Not on filedocumented in this encounter Care Teams Pastry Cook Apprentice Relationship Specialty Start Date End Date Earlene Beck MD [address] [place] [address] PCP - General Family Medicine 02/26/20 documented as of this encounter
--- OUTSIDE RECORDS SUMMARY | 2024-08-08 17:31 | XMS_ITS | Encounter Summary ---
Author Organization [employer] Address [address] [place] [address] Care Team Providers Care Egg Gatherer Name Role Phone Earlene Beck MD Primary Care Provider [phone] Encounter Details Date Type Department Care Team ([facility] st Contact Info) Description 04/29/2024 Orders Only [facility]ED[facility] [address] [place] [address] ProviderKat MD Social History Tobacco Use Types [...] Description 08/22/2024 2:00 PM EDT Medication Management [facility] MED & PEDS [address] [place] [address] Estela Warren PharmD [address] [place] [address] 08/28/2024 10:15 AM EDT Office Visit [facility] MED & PEDS [address] [place], [place] [phone] Earlene Beck MD [address] [place] [address] documented as of this encounter Procedures Procedure Name Priority Date/Time Associated Diagnosis Comments HEMOGLOBIN A1C Routine 04/10/2024 9:26 AM EST documented in this encounter Results * Hemoglobin A1c (04/10/2024 9:26 AM EST) Blood Venous blood specimen / Unknown us Historical Provider LAB BLOOD ORDERABLES Yasmeen l Result documented in this encounter Visit Diagnoses Not on filedocumented in this encounter Care Teams Egg Gatherer Relationship Specialty Start Date End Date Earlene Beck MD [address] [place] [address] PCP - General Family Medicine 02/26/20 documented as of this encounter
--- OUTSIDE RECORDS SUMMARY | 2024-08-08 17:31 | XMS_ITS | Clinical Summary ---
Author Organization [employer] Address [address] [place] [address] 7t [place] [address] Care Team Providers Care Quality Internship Name Role Phone Earlene Beck MD Primary Care Provider Allergies Active Allergy Reactions Criticality Noted Date Comments Naproxen 06/11/2013 Medications * This document contains information received from the source organization and may not represent a complete record from that organization. amitriptyline (Elavil) 75 MG tablet Take 75 mg by mouth at bedtime. 022 Active oxyCODONE-acetam inophen (Percocet) 5-325 MG tablet TAKE ONE TABLET BY MOUTH ONCE DAILY NEEDED FOR PAIN 022 Active famotidine (Pepcid) 40 MG tabletIndication s:Epigastric pain Take 1 tablet (40 mg) by mouth at bedtime. 90 tablet 1 023 Active acetaminophen (Tylenol 8 Hour) 650 MG ER tabletIndication s:Osteoarthritis of multiple joints, unspecified osteoarthritis type TAKE TWO TABLETS BY MOUTH EVERY 8 HOURS NEEDED WITH WATER DO NOT BREAK, CRUSH, DISSOLVE OR CHEW 90 tablet 11 023 Active Umeclidinium [place] (Incruse Ellipta) 62.5 MCG/ACT aerosol powderIndication s:Chronic obstructive pulmonary disease, unspecified COPD type (CMS/HCC) INHALE 1 PUFF DAILY AT THE SAME TIME EACH DAY IN THE MORNING 1 each 3 023 Active ammonium lactate (Lac-Hydrin) 12 % lotion APPLY ON FEET ONCE DAILY 226 g 11 023 Active Blood Glucose Monitoring Suppl (Provident LinkStyle [place] Lite) w/Device kit 023 Active Viberzi 75 MG tablet TAKE ONE TABLET TWICE DAILY WITH MEALS OR WITH FOOD 023 Active Blood Pressure kitIndications:E levated blood pressure reading 1 Units in the morning. 1 kit Active dulaglutide (Trulicity) 3 MG/0.5ML solution pen-injector Inject 3 mg under the skin 1 (one) time per week. 4 each 2 Active Additional Information Patient not taking.Reported on 04/12/2024 Continuous Blood Gluc Upper And Bottom Lacer Hand (FreeStyle Hetal 2 [place]) deviceIndication s:Type 2 diabetes mellitus with diabetic neuropathy, with long-term current use of insulin ([facility]) Use to monitor interstitial glucose 8 times [...] DAILY 100 each Active FREESTYLE LITE test stripIndications :Type 2 diabetes mellitus with diabetic neuropathy, with long-term current use of insulin ([facility]) TEST BLOOD SUGAR UP TO THREE TIMES DAILY DIRECTED 100 strip Active Easy Touch Lancets 33G/Twist miscIndications: Type 2 diabetes mellitus with diabetic neuropathy, with long-term current use of insulin ([facility]) TEST BLOOD SUGAR THREE TIMES DAILY 100 each Active Fluticasone Furoate-Vilanter ol (Breo Ellipta) 100-25 MCG/ACT aerosol powder Inhale [...] AND AT BEDTIME 60 tablet 11 Active Tourika SoloStar 300 UNIT/ML injection INJECT 20 UNITS SUBCUTANEOUSLY AT BEDTIME 4.5 mL 3 Active Continuous Glucose Upper And Bottom Lacer Hand (FreeStyle Hetal 2 [place]) device Scan sensor every 8 hours 1 each Active glucose blood (FreeStyle Precision Hardik Test) test strip Use to test blood sugar 3 times daily 100 each 12 024 2024 Active Diclofenac Sodium 1 % gel APPLY 2 GRAM'S TO AFFECTED AREA(s) TWICE DAILY NEEDED 100 g 3 Active esomeprazole (NexIUM) [address] capsuleIndicatio ns:Gastroesophag eal reflux disease without esophagitis TAKE ONE CAPSULE EVERY MORNING BEFORE BREAKFAST 90 capsule 1 Active metFORMIN (Glucophage) 1000 MG tabletIndication s:Type 2 diabetes mellitus with diabetic polyneuropathy (CMS/HCC) TAKE ONE TABLET IN THE MORNING AND EVENING 180 tablet 1 Active Alcohol Swabs (Alcohol Prep) 70 % pads USE THREE DAILY 100 each 5 Active cholecalciferol VITAMIN D (Vitamin D-3) 50 MCG (1999 UT) capsule TAKE ONE CAPSULE EVERY MORNING 90 capsule 3 Active Continuous Glucose Sensor (FreeStyle Hetal 2 Sensor) misc USE DIRECTED AND CHANGE EVERY 14 DAYS 2 each 3 Active diclofenac (Voltaren) 75 MG EC tablet TAKE ONE TABLET TWICE DAILY NEEDED FOR PAIN Active ipratropium-albu terol (Duo-Neb) 0.5-2.5 mg/3 mL nebulizer solution INHALE [...] the morning. Active Combivent Respimat 20-100 MCG/ACT inhalerIndicatio ns:Chronic obstructive pulmonary disease, unspecified COPD type (CMS/HCC) INHALE 1 PUFF 4 TIMES A DAY, MAY TAKE ADDITIONAL PUFFS NEEDED. (MAX 6 PUFFS PER DAY) 12 g 1 025 Active atorvastatin (Lipitor) 80 MG tablet TAKE ONE TABLET EVERY NIGHT AT BEDTIME 30 tablet 5 Active cetirizine (ZyrTEC) 10 MG tablet TAKE ONE TABLET EVERY MORNING 30 tablet 5 025 Active dapagliflozin (Farxiga) 10 MGIndications:Ty pe 2 diabetes mellitus with diabetic neuropathy, with long-term current use of insulin ([facility]) Take 1 tablet (10 mg) by mouth Once per day. 30 tablet 11 025 2025 Active gabapentin (Neurontin) 800 MG tabletIndication s:Osteoarthritis of multiple joints, unspecified osteoarthritis type TAKE ONE TABLET EVERY MORNING and TAKE TWO TABLETS EVERY DAY AT BEDTIME 90 tablet 1 025 Active dicyclomine (Bentyl) 20 MG tabletIndication s:Irritable bowel syndrome with diarrhea TAKE ONE TABLET in the morning, at noon, in the evening, and at bedtime 120 tablet 1 025 Active Farxiga 5 MG TAKE ONE TABLET EVERY MORNING 30 tablet 11 024 2024 Discontinued(D ose adjustment) gabapentin (Neurontin) 800 MG tabletIndication s:Osteoarthritis of multiple joints, unspecified osteoarthritis type TAKE 1 TABLET IN THE MORNING and TAKE TWO TABLETS EVERY DAY AT BEDTIME 90 tablet 025 2024 Discontinued dicyclomine (Bentyl) 20 MG tabletIndication s:Irritable bowel syndrome with diarrhea TAKE 1 TABLET in the morning, at noon, in the evening, and at bedtime 120 tablet 1 025 2024 Discontinued Active Problems Problem Noted Date Diagnosed Date Abdominal pain 10/31/2022 Assessment & Plan (10/31/2022 9:41 AM EDT): Advised patient to call to schedule an appointment with GI Dr. Elvi Darling. Hyperkalemia 10/31/2022 Assessment & Plan (10/31/2022 9:41 AM EDT): Patient seen in [facility] ED on 10/07/22 for abdominal pain [...] Encounters Date Type Department Care Team Description 07/31/2024 Orders Only GENERIC EXTERNAL DATA DEPARTMENT Provider, Generic External Data 07/30/2024 Refill [facility] MED [facility] PEDS [address] [place] [address] Earlene Beck MD Osteoarthritis of multiple joints, unspecified osteoarthritis type; Irritable bowel syndrome with diarrhea 07/10/2024 Telephone [facility] PED[facility] [address] [place] [address] Marie Reeves MD PCP Contact 07/09/2024 10:15 AM EDT Office Visit [facility] PED[facility] [address] [place] [address] Marie Reeves MD Pre-op evaluation (Primary Dx); Type 2 diabetes mellitus with diabetic neuropathy, with long-term current use of insulin ([facility]) 07/09/2024 Travel 06/14/2024 Telephone [facility] MEDICINE [address] [place] [address] Earlene Beck MD Pre-op Exam 05/31/2024 Refill [facility] P[facility] [address] [place] [address] Earlene Beck MD Osteoarthritis of multiple joints, unspecified osteoarthritis type; Irritable bowel syndrome with diarrhea from Last 3 Months Immunizations Name Administration [...] Description 08/22/2024 2:00 PM EDT Medication Management [facility] P[facility] [address] [place] [address] Estela Warren, BrianD [address] [place] [address] 08/28/2024 10:15 AM EDT Office Visit [facility] PEDS [address] [place] [address] Earlene Beck MD [address] [place] [address] Health Maintenance Due Date Last Done Comments [...] Procedure Name Priority Date/Time Associated Diagnosis Comments GLUCOSE, WHOLE BLOOD Routine 07/31/2024 12:02 PM EDT ECG 12-LEAD Routine 07/09/2024 1:01 PM EDT Pre-op evaluation CBC WITH AUTO DIFFERENTIAL Routine 07/09/2024 11:17 AM EDT Pre-op evaluation BASIC METABOLIC PANEL Routine 07/09/2024 11:17 AM EDT Pre-op evaluation POCT GLYCATED HEMOGLOBIN, TOTAL Routine 07/09/2024 10:34 AM EDT Type 2 diabetes mellitus with diabetic neuropathy, with long-term current use of insulin ([facility]) POCT GLUCOSE Routine 07/09/2024 10:33 AM EDT Type 2 diabetes mellitus with diabetic neuropathy, with long-term current use of insulin ([facility]) LIPID PANEL, STANDARD Routine 04/12/2024 9:12 AM EST Type 2 diabetes mellitus with diabetic neuropathy, with long-term current use of insulin ([facility]) from Last 3 Months or Most Recently Relevant to Health Maintenance Results * (ABNORMAL) Glucose, Whole Blood (07/31/2024 12:02 PM EDT) Pathologist [facility] Glucose, Whole Blood 231(H) 60 - 115 mg/dL [facility] Comment:METER #: [id number] 07/31/2024 12:0 2 PM EDT 07/31/2024 12:06 PM EDT us Generic External Data Provider LAB BLOOD ORDERAB LES Final Result [facility] [address] [place] [phone] * ECG 12 lead (07/09/2024 1:01 PM EDT) Narrative Marie Reeves MD - 07/09/2024 1:01 PM EDT Heart rate 58 bpm. ??[place] 51 degrees. ??Normal sinus rhythm. ??No sign of left atrial enlargement or right atrial enlargement. ??No sign of hypertrophy. ??No ST elevation or ST depression. Normal ECG. us Marie Reeves MD ECG ORDERABLES Final Resul t * (ABNORMAL) CBC auto differential (07/09/2024 11:17 AM EDT) White Blood Count 6.0 4.8 - 10.8 X10*3/uL [facility] Red Blood Count 5.06 4.60 - 5.80 X10*6/uL [facility] Hemoglobin 13.4(L) 14.0 - 18.0 g/dl [facility] Hematocrit 43.4 42.0 - 52.0 % [facility] Mean Corpuscular Volume 85.8 80.0 - 98.0 fL [facility] Mean Corpuscular Hemoglobin 26.5(L) 27.0 - 33.0 pg [facility] Mean Corpuscular HGB Conc 30.9(L) 31.0 - 36.0 g/dl [facility] Red Cell Distribution Width 14.8 11.0 - 16.0 % [facility] Platelet Count 149(L) 160 - 400 X10*3/uL [facility] Mean Platelet Volume 12.8(H) 9.4 - 12.4 fL [facility] Neutrophils Percent Auto 49.3 45 - 73 % [facility] Imm Gran Pct Auto 0.2 0.0 - 0.4 % [facility] Lymphocytes Percent Auto 38.3 20 - 40 % [facility] Monocytes Percent Auto 6.6 2 - 11 % [facility] Eosinophils Percent Auto 4.6(H) 0 - 4 % [facility] Basophils Percent Auto 1.0 0 - 2 % [facility] NRBC Pct Auto 0.0 0.0 - 0.2 /100WBC [facility] Neutrophils Absolute Auto 3.0 2.0 - 8.3 x10*3/uL [facility] Imm Gran Abs Auto 0.01 0.00 - 0.03 X10*3/uL [facility] Lymphocytes Absolute Auto 2.3 1.2 - 4.9 X10*3/uL [facility] Monocytes Absolute Auto 0.4 0.1 - 1.2 X10*3/uL [facility] Eosinophils Absolute Auto 0.3 0.0 - 0.4 X10*3/uL [facility] Basophils Absolute Auto 0.1 0.0 - 0.2 X10*3/uL [facility] NRBC Abs Auto 0.000 0.0 - 0.012 X10*3/uL [facility] Blood Venous blood specimen / Unknown 07/09/2024 11:17 AM EDT 07/09/2024 2:09 PM EDT us Marie Reeves MD LAB BLOOD ORDERABLES Final Result Performing Organization Address [facility]/ZIP Co de Phone Number [facility] [address] [place] [address] [phone] * (ABNORMAL) Basic Metabolic Panel (07/09/2024 11:17 AM EDT) Sodium 143 135 - 145 mmol/L [facility] Potassium 4.2 3.3 - 5.1 mmol/L [facility] Chloride 105 96 - 108 mmol/L [facility] Carbon Dioxide 31(H) 22 - 29 mmol/L [facility] Anion Gap 11(L) 12 - 20 [facility] Urea Nitrogen (BUN) 12 9 - 16 mg/dL [facility] Creatinine, Serum 0.88 0.5 - 1.4 mg/dL [facility] Estimated Glomerular Filt Rate >60 [facility] Comment:Chronic Kidney Disea se: Estimated GFR < 60 mL/min/[id number] Kidney Disease: Estimated GFR < 15 mL/min/1.73m2 Glucose 224(H) 60 - 115 mg/dL [facility] Calcium 9.2 8.4 - 10.2 mg/dL [facility] Blood Venous blood specimen / Unknown 07/09/2024 11:17 AM EDT 07/09/2024 2:09 PM EDT us Marie Reeves MD LAB BLOOD ORDERABLES Final Result Performing Organization Address [facility]/ZIP Co de Phone Number [facility] [address] [place] [phone] * (ABNORMAL) POCT A1C (07/09/2024 10:34 AM EDT) Hemoglobin A1C 10.8(A) 4.0 - 6.0 % [employer] Media Lot # Comment:[id number] Lot# Expiration Date Comment: Blood 07/09/2024 10:3 4 AM EDT Marie Reeves MD POINT OF CARE TEST ENTER/ED IT ORDERABLES Final Result * (ABNORMAL) POCT glucose manually resulted (07/09/2024 10:33 AM EDT) Glucose Blood, POC 278(A) 60 - 200 mg/dL [employer] Lot # Comment:[id number] Lot# Expiration Date Comment:10/31/2024 Blood Capillary blood specimen / Unknown 07/09/2024 10:33 AM EDT Marie Reeves MD POINT OF CARE TEST ENTER/ED IT ORDERABLES Final Result * (ABNORMAL) Lipid Panel, Standard (04/12/2024 9:12 AM EST) Triglycerides 54 <150 mg/dL [facility] Comment:Desirable Triglyceri de: less than [...] 190 mg/dL HDL Cholesterol 33(L) >40 mg/dL [facility] Comment:Desirable HDL: great er than 40 mg/dL Note: This HDL assay may give artificially low results in patients with liver disease. Blood Venous blood specimen / Unknown 04/12/2024 9:12 AM EST 04/12/2024 2:18 PM EST us Earlene Beck MD LAB BLOOD ORDERABLES Final Resul t [facility] [address] [place] [address] [phone] from Last 3 Months or Most Recently Relevant to Health Maintenance Insurance - [employer] Care Teams Quality Internship Relationship Specialty Start Date End Date Earlene Beck MD [address] [place] [phone] PCP - General Family Medicine 02/26/20
--- OUTSIDE RECORDS SUMMARY | 2024-08-08 17:31 | XMS_ITS | Encounter Summary ---
Author Organization [employer] Address [address] [facility] 7t [place] [address] Care Team Providers Care Rail Walker Name Role Phone Earlene Beck MD Primary Care Provider [phone] Reason for Visit * Reason Comments Med Refill Encounter Details Date Type Department Care Team ([facility] st Contact Info) Description 01/04/2024 Refill [facility] MED & PEDS [address] [place], [place] [phone] Emelina Carmona MD [address] [place] [address] Social History Tobacco Use Types Packs/Day Years [...] Description 08/22/2024 2:00 PM EDT Medication Management [facility] MED & PEDS [address] [place] [address] Estela Warren PharmD [address] [place] [address] 08/28/2024 10:15 AM EDT Office Visit [facility] MED & PEDS [address] [place] [address] Earlene Beck MD [address] [place] [address] documented as of this encounter Visit Diagnoses Not on filedocumented in this encounter Care Teams Rail Walker Relationship Specialty Start Date End Date Earlene Beck MD [address] [place] [address] PCP - General Family Medicine 02/26/20 documented as of this encounter
--- OUTSIDE RECORDS SUMMARY | 2024-08-08 17:31 | XMS_ITS | Data Portability ---
Author Organization [employer] Address [address] [place] [id number] Care Team Providers Care Funeral Director Name Role Phone [facility] Referring Provider [facility] Referring Provider [phone] Assessment Encounter Date Assessment Date Assessment LastModified by Organization Details LastModified Time 08/23/2022 08/23/2022 I have reviewed and agree with the Assessment and Plan as documented by the Telemetry Monitor. I provided real-time medical direction via phone [...] [id number] Theodore Yun MD Main - [facility] [address] [place] [phone] 08/23/2022 13:24:48 08/25/2022 11:38:02 Cough 93885078 R05.9 Health Concerns Section Related Observation LastModified by Organization Detai ls LastModified Time None Recorded Concern Status LastModified by Organization Details LastModified Time None Recorded Advance Directives Directive None Recorded Payers Encounter Date Sequence Insurance Name Policy Number Policy Ford Covered Member ID Ford Member ID Guarantor Name 08/23/2022 1 [facility] - DOS PRIOR TO 2022 - DUAL ELIGIBLE (MEDICARE REPLACEMENT/ADV ANTAGE - HMO) Aravind Mosqueda [id number] Aravind Mosqueda Notes Date Note Type Note [...] .................. .................. .................. .................. .................. .................. ............... Telemetry Monitor Note From Jory Yoon: Community Telemetry Monitor Earlene Yoon [id number] dispatched to a [place] [...] ............... Disposition: Fulfilled Theodore Yun MD [address] [facility],[address], [place], [address], [employer] 08/23/2022 17:10:22
--- OUTSIDE RECORDS SUMMARY | 2024-08-08 17:31 | XMS_ITS | Encounter Summary ---
Author Organization [employer] [facility] Address [address] [place] [address] 7t [place] [address] Care Team Providers Care Plug Sorter Name Role Phone Earlene Beck MD Primary Care Provider [phone] Encounter Details Date Type Department Care Team (Latest Contact Info) Description 05/09/2018 Abstract [facility] CONVERSIONS Dental, Provider, DDS Social History [...] Description 08/22/2024 2:00 PM EDT Medication Management [facility] MED & PEDS [address] [place] [address] Estela Warren, PharmD [address] [place] [address] 08/28/2024 10:15 AM EDT Office Visit [facility] MED & PEDS [address] [place] [address] Earlene Beck MD [address] [place] [address] documented as of this encounter Visit Diagnoses Not on filedocumented in this encounter Care Teams Plug Sorter Relationship Specialty Start Date End Date Earlene Beck MD [address] [place] [address] PCP - General Family Medicine 02/26/20 documented as of this encounter
--- OUTSIDE RECORDS SUMMARY | 2024-08-08 17:31 | XMS_ITS | Encounter Summary ---
Author Organization [employer] [facility] Address [address] [place] [address] 7 [place] [address] Care Team Providers Care Rules Examiner Name Role Phone Earlene Beck MD Primary Care Provider [phone] Reason for Visit * Reason Comments Med Refill Encounter Details Date Type Department Care Team ([facility] Contact Info) Description 01/07/2023 Refill [facility] MED & PEDS [address] [place] [address] Marie Reeves MD [address] [place] [address] Osteoarthritis of multiple joints, unspecified osteoarthritis type [...] Description 08/22/2024 2:00 PM EDT Medication Management [facility] MED & PEDS [address] [place] [address] Estela Warren, PharmD [address] [place] [address] 08/28/2024 10:15 AM EDT Office Visit [facility] CHC MED & PEDS [address] [place] [address] Earlene Beck MD [address] [place] [address] documented as of this encounter Visit Diagnoses Diagnosis Osteoarthritis of multiple joints, unspecified osteoarthritis type documented in this encounter Care Teams Rules Examiner Relationship Specialty Start Date End Date Earlene Beck MD [address] [place] [address] PCP - General Family Medicine 02/26/20 documented as of this encounter
--- OUTSIDE RECORDS SUMMARY | 2024-08-08 17:31 | XMS_ITS | Clinical Summary ---
Author Organization [address] [facility] Address [address] [place] [address] Phone Care Team Providers Care Jockey Valet Name Role Phone Earlene Beck MD Primary Care Provider [phone] Allergies Active Allergy Reactions Criticality Noted Date Comments Naproxen 03/25/2024 Medications ciclopirox (LOPROX) 0.77 % gel Apply topically 2 (two) times a day. 45 g 5 08/29/19 Active Active Problems Problem Noted Date Diagnosed Date Diabetic neuropathy, type II diabetes mellitus ([facility] V24, [facility] V28) 03/18/2024 Long-term insulin use in typ e 2 diabetes ([facility] V24, [facility] V28) 03/18/2024 Seizure ([facility] V24, [facility] V28) 03/18/2024 COPD (chronic obstructive pu lmonary disease) ([facility] V24, [facility] V28) 03/18/2024 Encounters Date Type Department Care Team Description 05/30/2024 9:30 AM EST Office Visit [facility] [place] [address] [address] Oracio Smalls, DPM Dermatophytosis of nail (Primary Dx); Diabetic mononeuropathy simplex ([facility] V24, [facility] V28); Tinea pedis of both feet from Last [...] Care Team (Late st Contact Info) Description 10/10/2024 1:00 PM EDT Office Visit Orthopedic Surgery - [place] [address] [address] Oracio Smalls, [place] [address] [address] Health Maintenance Due Date Last Done Comments Diabetes: Annual Foot Exam 1975 Diabetes: Annual Retina Eye Exam 1975 Colorectal Cancer Screening: Colonoscopy 02/13/2024 Depression Screening [...] 12/14/2010, 12/14/2010, Additional history exists RSV Immunization Adult Patients (1 - 1-dose 75+ series) 2040 MMR [...] age to complete this topic Meningococcal B Vaccine Aged Out No l onger eligible based on patient's age to complete [...] Group ID:[id number] Type:Not on file Address: [facility] [place] [address] Care Teams Jockey Valet Relationship Specialty Start Date End Date Earlene Beck MD [address] [place] [address] PCP - General 12/27/23
--- OUTSIDE RECORDS SUMMARY | 2024-08-08 17:31 | XMS_ITS | Encounter Summary ---
Author Organization [employer] [facility] Address [address] [place] [address] 7t [place] [address] Care Team Providers Care Skid Machine Operator Name Role Phone Earlene Beck MD Primary Care Provider [phone] Reason for Visit * Reason Comments Med Refill Encounter Details Date Type Department Care Team (Late Contact Info) Description 05/12/2022 Refill [facility] CHC MED & PEDS [address] [place] [address] Earlene Beck MD [address] [place] [address] Irritable bowel syndrome with diarrhea; Gastro-esophageal reflux [...] 08/22/2024 2:00 PM EDT Medication Management [facility] MED & PEDS [address] [place] [address] Estela Warren PharmD [address] [place] [address] 08/28/2024 10:15 AM EDT Office Visit [facility] MED & PEDS [address] [place] [address] Earlene Beck MD [address] [place] [address] documented as of this encounter Visit Diagnoses Diagnosis Irritable bowel syndrome with diarrhea Irritable bowel syndrome Gastro-esophageal reflux disease without esophagitis documented in this encounter Care Teams Skid Machine Operator Relationship Specialty Start Date End Date Earlene Beck MD [address] [place] [address] PCP - General Family Medicine 02/26/20 documented as of this encounter
--- OUTSIDE RECORDS SUMMARY | 2024-08-08 17:32 | XMS_ITS | Encounter Summary ---
Author Organization [employer] [facility] Address [address] [place] [address] 7t [place] [address] Care Team Providers Care Allocations Clerk Name Role Phone Earlene Beck MD Primary Care Provider [phone] Encounter Details Date Type Department Care Team (Latest Contact Info) Description 11/09/2018 Abstract [facility] CONVERSIONS Dental, Provider, DDS Social History [...] 2:00 PM EDT Medication Management [facility] MED & PEDS [address] [place] [address] Estela Warren, PharmD [address] [place] [address] 08/28/2024 10:15 AM EDT Office Visit [facility] MED & PEDS [address] [place] [address] Earlene Beck MD [address] [place] [address] documented as of this encounter Visit Diagnoses Not on filedocumented in this encounter Care Teams Allocations Clerk Relationship Specialty Start Date End Date Earlene Beck MD [address] [place] [address] PCP - General Family Medicine 02/26/20 documented as of this encounter
--- OUTSIDE RECORDS SUMMARY | 2024-08-08 17:32 | XMS_ITS | Encounter Summary ---
Author Organization [employer] [facility] Address [address] [place] [address] [address]t [place] [address] Care Team Providers Care Log Roller Name Role Phone Earlene Beck MD Primary Care Provider [phone] Encounter Details Date Type Department Care Team (Latest Contact Info) Description 06/08/2020 Abstract [facility] CONVERSIONS Dental, Provider, DDS Social History [...] 2:00 PM EDT Medication Management [facility] MED & PEDS [address] [place] [address] Estela Warren, PharmD [address] [place] [address] 08/28/2024 10:15 AM EDT Office Visit [facility] MED & PEDS [address] [place] [address] Earlene Beck MD [address] [place] [address] documented as of this encounter Visit Diagnoses Not on filedocumented in this encounter Care Teams Log Roller Relationship Specialty Start Date End Date Earlene Beck MD [address] [place] [address] PCP - General Family Medicine 02/26/20 documented as of this encounter
== END 2024-08-08 15:24 | disposition home or self-care (01) ==
LOC: HO.HOS 14:58
PROVIDERS: PCP Student in an Organized Health Care Education/Training Program; Visit Provider Physician Assistant
DX: Z98.890 Other specified postprocedural states (principal)
CPT/HCPCS: 99024

== ENCOUNTER → 2024-08-08 14:58 | Outpatient (BNVA) | payer OTHER, SELFPAY | PROVIDERS: PCP Student in an Organized Health Care Education/Training Program; Visit Provider Physician Assistant | DX: Z47.89 Encounter for other orthopedic aftercare (principal); Z98.890 Other specified postprocedural states | CPT/HCPCS: 99212 ==

== ENCOUNTER 2024-08-22 13:39 | Outpatient (AMB) | payer OTHER, SELFPAY ==
--- NOTE | 2024-08-22 13:41 | A.OFFVIS_ITS ---
Vital Signs 08/22/24 13:50 Height 5 ft 9 in Intake Visit Reasons: f/u medication Intake Note: ESTABLISHED PATIENT for GERD + IBS mgmt. Chief Complaint; Pharmacy verified? [facility] Security Threat Analyst Required: Yes Security Threat Analyst Name: MERCY Johnston Information Interpreted: clinical only Allergies naproxen [From NAPROSYN] Allergy (Mild, Verified 08/22/24 13:51) HIVES HPI HPI f/u medication: Details: Assessment & Plan (1) Irritable bowel syndrome with diarrhea: Code(s): K58.0 - Irritable bowel syndrome with diarrhea Plan: ANDORRAN # translates per request They tell me that he received the Viberzi and took it but it did not help the pain, also he is now having BM's 2-3 times a day with stools varying from soft to hard. The pain is random and is not r/t eating or moving his bowels. The pain is always there in the same spot and is described as squeezing. He is being told by various providers that he needs an EGD/colonoscopy - but he had a scope in 2019 and his pain is not well correlated with any GI systems. We do an exam and his pain is provoked with all aspects of his LS movement and he is very limited in ROM in all aspects. I will get XR of LS and thoracic spine and some inflammatory markers. I explain that I COULD order an EGD/colonoscopy, but this would only make $$ for us and not solve the problem. ROV 3 weeks. (2) GERD (gastroesophageal reflux disease): Code(s): K21.9 - Gastro-esophageal reflux disease without esophagitis (3) Back pain: Code(s): M54.9 - Dorsalgia, unspecified Orders: Orders XR thoracic spine 2V 11/11/22 M54.9 - Dorsalgia, unspecified XR lumbar spine 2-3V 11/11/22 M54.9 - Dorsalgia, unspecified C Reactive Protein 11/11/22 M54.9 - Dorsalgia, unspecified Erythrocyte Sedimentation Rate 11/11/22 M54.9 - Dorsalgia, unspecified Rheumatoid Factor 11/11/22 M54.9 - Dorsalgia, unspecified VLAD Reflex Titer and Pattern 11/11/22 M54.9 - Dorsalgia, unspecified Medications: Discontinued eluxadoline must administer with a meal/food Discontinued Reason: Doctor's Order 75 mg PO BID 60 tabs 3RF K58.0 - Irritable bowel syndrome with diarrhea LABS: Laboratory Tests 11/11/22 14:02 ESR 2 Rheumatoid Factor < 13.0 VLAD Screen NEGATIVE XR LUMBAR AND THORACIC SPINE 11/14/22 FINDINGS: Alignment is normal. Vertebral body heights are normal. No fracture. Intervertebral disc heights are maintained. Bone mineralization is normal. SI joints are unremarkable. XR/XR lumbar spine 2-3V IMPRESSION: 1. No acute fracture or malalignment. 2. Lumbar spine appears relatively well-preserved without significant degenerative disc disease. XR THORACIC SPINE 11/14/22 FINDINGS: The vertebral alignment is normal. No intrinsic bony abnormality. The disc heights are well maintained. No fracture. The surrounding prevertebral soft tissues are unremarkable. XR/XR thoracic spine 2V IMPRESSION: No acute osseous abnormality. TODAY'S VISIT ANDORRAN #Vickie Mishra He is accompanied by his who is supportive and helpful with the history. He has not seen me since 2022! However he still has pain in the right flank to upper abdomen area that is unexplained. There was not any smoking gone on the thoracic and lumbar spine x-ray but also he has had a completely negative GI workup. Given the persistence of this problem I will try to get an MRI of the area to see if this provides us with any further information. The pain has not responded to Bentyl so I them uncertain that it is bowel spasm. Of course, x- ray does not rule out other musculoskeletal so causes. He has not had any lab abnormalities that seem to suggest pancreatitis or other unusual condition. I have even done in inflammatory marker workup to see if we should suspect any rheumatologic causes but this was also negative. He had a negative upper endoscopy in 2019 that is been lost to record because it wasin [facility], a negative colonoscopy in the same year that should be repeated in 5 years. Upon physical exam and his pain is provoked with all aspects of his LS movement and he is very limited in ROM in all aspects. He does have other musculoskeletal issues including severe degenerative arthritis of the shoulders. Other contributing comorbid conditions could be his cardiac status, his severe COPD with history of pneumothorax (although this was on the left side), and a history of heavy alcohol abuse. It appears that his transaminases are relatively normal so it maybe that he has stopped drinking. He had a recent chest CT showing trace pericardial effusion and tracheal megaly of uncertain significance to his pain complaint. He has had a couple of negative CAT scans and ultrasounds failing to show any reason for the pain. He continues on esomeprazole in the morning and famotidine at night. Return office visit in 4 months and hopefully by then will have an MRI. 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 and will be going to [place] to have it managed) [facility] Medical History (Updated 08/22/24 @ 16:53 by CARLENE Campbell) Encounter for preoperative pulmonary examination Dysfunction of right rotator cuff Back pain Takotsubo cardiomyopathy Bilateral shoulder pain Irritable bowel syndrome with diarrhea Periumbilical abdominal pain Diarrhea Preop cardiovascular exam Long-term insulin use in type 2 diabetes Diabetes type 2, uncontrolled Tobacco abuse Sleep apnea Myocardial infarction BPH (benign prostatic hyperplasia) Depression Thrombocytopenia Alcohol abuse Peripheral neuropathy COPD (chronic obstructive pulmonary disease) Seizures Essential hypertension Hyperlipidemia LDL goal <70 Type 2 diabetes mellitus with diabetic polyneuropathy Surgical History (Updated 08/22/24 @ 16:53 by CARLENE Campbell) Status post right rotator cuff repair Status post chest tube placement H/O cardiac catheterization Hx of shoulder surgery History of esophagogastroduodenoscopy (EGD) H/O colonoscopy History of arthroscopic surgery of shoulder Hx of hernia repair Hx of pneumonectomy Hx of knee surgery Family History Father Cancer Diabetes Mother CVD (cardiovascular disease) Social History Household Members: Spouse Alcohol intake: never Patient Tobacco Use Status: Former Tobacco user Tobacco use type: Cigarette Years Smoked: 40 Current occupational status: unemployed Current occupation: Right Handed Review of Systems Const Denies fatigue, Denies fever(s), Denies night sweats, Denies poor appetite and Denies weight loss Eyes Details: GLASSES Reports requires corrective lenses ENT Reports Normal hearing present, Denies dental pain, Denies dysphagia, Denies hearing loss, Denies mouth pain, Denies odynophagia, Denies throat swelling, Denies tongue swelling and Reports other (Dentition adequate) Card Reports no additional complaints and Reports dyspnea on exertion Resp Reports dyspnea on exertion GI Details: Reports abdominal pain, Denies melena, Denies bloating, Denies hematochezia, Denies constipation, Denies GI cramping, Denies dysphagia, Denies excessive flatus, Denies early satiety, Reports heartburn, Denies diarrhea, Denies nausea, Denies odynophagia, Denies vomiting and Denies hematemesis Reports flank pain Musc Details: SLING RT ARM Reports back pain, Reports myalgias and Reports arthralgias Skin/Breast Denies pruritus, Denies lesions, Denies rash and Denies jaundice Neuro Reports Normal hearing present and Denies Abnormal speech present Endo Denies fatigue Aller/Immun Denies throat swelling and Denies tongue swelling Physical Exam Const General: cooperative, no acute distress, well developed and well groomed Nutritional Appearance: average body habitus and well nourished Orientation/consciousness: oriented to person, oriented to place and oriented to time Limitations: language barrier and other limitations (Sling right arm and shoulder) HEENT Head: Yes normocephalic and Yes atraumatic Eyes General: appearance normal, both eyes and all related structures Pupils: Equal, round and reactive pupils present Neck Neck: Yes normal visual inspection and Yes no lymphadenopathy Thyroid: Thyroid normal Resp Effort & Inspection: normal respiratory effort and able to speak in complete sentences Cardio Rate: regular rate Rhythm: regular rhythm Heart sounds: Normal, physiologic split S2 sound present Peripheral pulses: radial pulses present and posterior tibial pulses present GI Inspection: No distended and No Abdominal panniculus present Palpation (GI): Soft to palpation, Tenderness to palpation present (GI) (Right flank), no guarding, not rigid and No hepatosplenomegaly present Percussion: Yes normal to percussion Auscultation: normal bowel sounds Rectal Exam - Male: Yes deferred Back/Spine/Pelvis Thoracic/Lumbar Spine: paraspinal muscle tenderness, thoracic spinal tenderness and lumbar spinal tenderness Skin General skin exam: no rashes or lesions noted, turgor normal, skin not dry, no jaundice, No spider nevi and no striae Rashes: no rashes Nails: normal Neuro General: oriented to person, oriented to place and oriented to time Cranial nerves: Yes Equal, round and reactive pupils present and Yes Normal hearing present Speech: No Abnormal speech present Extrem General: Yes normal to inspection, No clubbing, No cyanosis and No edema Psych Appearance: grossly normal and well kempt Mental Status: mental status grossly normal Speech and movement: Normal speech and movement present Affect: normal affect Attitude: cooperative Thought process: Normal thought process present and not confabulating Thought content: Normal thought content present Insight: Limited insight present (Psych) Judgement: Limited judgement present (Psych) Results Reviewed Results Reviewed: Laboratory Tests 11/11/22 14:02 ESR 2 Rheumatoid Factor < 13.0 VLAD Screen NEGATIVE XR LUMBAR AND THORACIC SPINE 11/14/22 FINDINGS: Alignment is normal. Vertebral body heights are normal. No fracture. Intervertebral disc heights are maintained. Bone mineralization is normal. SI joints are unremarkable. XR/XR lumbar spine 2-3V IMPRESSION: 1. No acute fracture or malalignment. 2. Lumbar spine appears relatively well-preserved without significant degenerative disc disease. XR THORACIC SPINE 11/14/22 FINDINGS: The vertebral alignment is normal. No intrinsic bony abnormality. The disc heights are well maintained. No fracture. The surrounding prevertebral soft tissues are unremarkable. XR/XR thoracic spine 2V IMPRESSION: No acute osseous abnormality. Assessment & Plan Assessment & Plan (1) Right flank pain: Code(s): R10.9 - Unspecified abdominal pain Category: Medical (2) GERD (gastroesophageal reflux disease): Code(s): K21.9 - Gastro-esophageal reflux disease without esophagitis Category: Medical (3) Dilated aortic root: Code(s): I77.810 - Thoracic aortic ectasia Category: Medical (4) Cardiomyopathy: Code(s): I42.9 - Cardiomyopathy, unspecified Category: Medical Plan ANDORRAN #Vickie Danica He is accompanied by his who is supportive and helpful with the history. He has not seen me since 2022! However he still has pain in the right flank to upper abdomen area that is unexplained. There was not any smoking gone on the thoracic and lumbar spine x-ray but also he has had a completely negative GI workup. Given the persistence of this problem I will try to get an MRI of the area to see if this provides us with any further information. The pain has not responded to Bentyl so I them uncertain that it is bowel spasm. Of course, x- ray does not rule out other musculoskeletal so causes. He has not had any lab abnormalities that seem to suggest pancreatitis or other unusual condition. I have even done in inflammatory marker workup to see if we should suspect any rheumatologic causes but this was also negative. He had a negative upper endoscopy in 2019 that is been lost to record because it wasin [facility], a negative colonoscopy in the same year that should be repeated in 5 years. Upon physical exam and his pain is provoked with all aspects of his LS movement and he is very limited in ROM in all aspects. He does have other musculoskeletal issues including severe degenerative arthritis of the shoulders. Other contributing comorbid conditions could be his cardiac status, his severe COPD with history of pneumothorax (although this was on the left side), and a history of heavy alcohol abuse. It appears that his transaminases are relatively normal so it maybe that he has stopped drinking. He had a recent chest CT showing trace pericardial effusion and tracheal megaly of uncertain significance to his pain complaint. He has had a couple of negative CAT scans and ultrasounds failing to show any reason for the pain. He continues on esomeprazole in the morning and famotidine at night. Return office visit in 4 months and hopefully by then will have an MRI. 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
--- OUTSIDE RECORDS SUMMARY | 2024-08-22 16:00 | XMS_ITS | Clinical Summary ---
Author Organization [employer] Address [address] [place] [address] 7t [place] [address] Care Team Providers Care Hydraulic Blocker Name Role Phone Earlene Beck MD Primary Care Provider [phone] Allergies Active Allergy Reactions Criticality Noted Date [...] CHEW 90 tablet 11 023 Active Umeclidinium [place] (Incruse Ellipta) 62.5 MCG/ACT aerosol powderIndication s:Chronic obstructive pulmonary disease, unspecified COPD type (CMS/HCC) INHALE 1 PUFF DAILY AT THE SAME TIME EACH DAY IN THE MORNING 1 each 3 023 Active ammonium lactate (Lac-Hydrin) 12 % lotion APPLY ON FEET ONCE DAILY 226 g 11 023 Active Blood Glucose Monitoring Suppl (SeeChange HealthStyle [place] Lite) w/Device kit 023 Active Viberzi 75 [...] not taking.Reported on 04/12/2024 Continuous Blood Gluc Visual Merchandiser (FreeStyle Hetal 2 [place]) deviceIndication s:Type 2 diabetes mellitus with diabetic neuropathy, with long-term current use of insulin ([facility]) Use to monitor interstitial glucose 8 [...] neuropathy, with long-term current use of insulin ([facility]) TEST BLOOD SUGAR UP TO THREE TIMES DAILY DIRECTED 100 strip Active Easy Touch Lancets 33G/Twist miscIndications: Type 2 diabetes mellitus with diabetic neuropathy, with long-term current use of insulin ([facility]) TEST BLOOD SUGAR THREE TIMES DAILY [...] AND AT BEDTIME 60 tablet 11 Active Toubriano SoloStar 300 UNIT/ML injection INJECT 20 UNITS SUBCUTANEOUSLY AT BEDTIME 4.5 mL 3 Active Continuous Glucose Visual Merchandiser (FreeStyle Hetal 2 [place]) device Scan sensor every 8 hours 1 [...] tablet Take 500 mg by mouth. Active Combivent Respimat 20-100 MCG/ACT inhalerIndicatio ns:Chronic obstructive pulmonary disease, unspecified COPD type (CMS/HCC) INHALE 1 PUFF 4 TIMES A DAY, MAY TAKE ADDITIONAL PUFFS NEEDED. (MAX 6 PUFFS PER DAY) 12 g 1 025 Active atorvastatin (Lipitor) 80 MG tablet TAKE ONE TABLET EVERY NIGHT AT BEDTIME 30 tablet 5 025 Active cetirizine (ZyrTEC) 10 MG tablet TAKE ONE TABLET EVERY MORNING 30 tablet 5 025 Active dapagliflozin (Farxiga) 10 MGIndications:Ty pe 2 diabetes mellitus with diabetic neuropathy, with long-term current use of insulin ([facility]) Take 1 tablet (10 mg) by mouth [...] and at bedtime 120 tablet 1 Active Ciclopirox 0.77 % gel Apply topically 2 times daily. 025 2024 Active clotrimazole (Lotrimin) 1 % cream apply to the affected area(s) twice daily Active amLODIPine (Norvasc) 2.5 MG tablet Take 2.5 mg by mouth in the morning. 024 2024 Discontinued(M ed list cleanup (will not trigger notification to Pharmacy)) gabapentin (Neurontin) 800 MG tabletIndication s:Osteoarthritis of multiple joints, unspecified osteoarthritis type TAKE 1 TABLET IN THE MORNING and TAKE TWO TABLETS EVERY DAY AT BEDTIME 90 tablet 1 025 2024 Discontinued dicyclomine (Bentyl) 20 MG [...] (10/31/2022 9:41 AM EDT): Patient seen in [facility] ED on 10/07/22 [...] Encounters Date Type Department Care Team Description 08/21/2024 Telephone [facility] [address] [place] [address] Earlene Beck MD 07/31/2024 Orders Only GENERIC EXTERNAL DATA DEPARTMENT Provider, Generic External Data 07/30/2024 Refill [facility] [address] [place] [address] Earlene Beck MD Osteoarthritis of multiple joints, unspecified osteoarthritis type; Irritable bowel syndrome with diarrhea 07/10/2024 Telephone [facility] [address] [place] [address] Marie Reeves MD PCP Contact 07/09/2024 10:15 AM EDT Office Visit [facility] 505 [place] [address] Marie Reeves MD Pre-op evaluation (Primary Dx); Type 2 diabetes mellitus with diabetic neuropathy, with long-term current use of insulin ([facility]) 07/09/2024 Travel 06/14/2024 Telephone [facility] [address] [place], [place] [phone] Earlene Beck MD Pre-op Exam 05/31/2024 Refill [facility] [address] [facility] [place] [address] Earlene Beck MD Osteoarthritis of multiple joints, [...] Description 08/28/2024 10:15 AM EDT Office Visit [facility] [address] [place] [address] Earlene Beck MD 505 [place] [address] 09/26/2024 1:00 PM EDT Medication Management [facility] [address] [place] [address] Estela Warren, PharmD [address] [place] [address] Health Maintenance Due Date Last Done Comments [...] neuropathy, with long-term current use of insulin ([facility]) POCT GLUCOSE Routine 07/09/2024 10:33 AM EDT Type 2 diabetes mellitus with diabetic neuropathy, with long-term current use of insulin ([facility]) LIPID PANEL, STANDARD Routine 04/12/2024 9:12 AM EST Type 2 diabetes mellitus with diabetic neuropathy, with long-term current use of insulin ([facility]) from Last 3 Months or Most Recently Relevant to Health Maintenance Results * (ABNORMAL) Glucose, Whole Blood (07/31/2024 12:02 PM EDT) [facility] Signature Glucose, Whole Blood 231(H) 60 - 115 mg/dL [facility] Comment:METER #: [id number] 07/31/2024 12:0 2 PM EDT 07/31/2024 12:06 PM EDT us Generic External Data Provider LAB BLOOD ORDERAB LES Final Result [facility] [address] [place] [phone] * ECG 12 lead (07/09/2024 1:01 PM EDT) Narrative Marie Reeves MD - 07/09/2024 1:01 PM EDT Heart rate 58 bpm. ??[place] 51 degrees. ??Normal sinus rhythm. ??No sign of left atrial enlargement or right atrial enlargement. ??No sign of hypertrophy. ??No ST elevation or ST depression. Normal ECG. us Marie Reeves MD ECG ORDERABLES Final Resul t * (ABNORMAL) CBC auto differential (07/09/2024 11:17 AM EDT) White Blood Count 6.0 4.8 - 10.8 X10*3/uL [facility] Red Blood Count 5.06 4.60 - 5.80 X10*6/uL [facility] Hemoglobin 13.4(L) 14.0 - 18.0 g/dl [facility] Hematocrit 43.4 42.0 - 52.0 % [facility] Mean Corpuscular Volume 85.8 80.0 - 98.0 fL [facility] Mean Corpuscular Hemoglobin 26.5(L) 27.0 - 33.0 pg [facility] Mean Corpuscular HGB Conc 30.9(L) 31.0 - 36.0 g/dl [facility] Red Cell Distribution Width 14.8 11.0 - 16.0 % [facility] Platelet Count 149(L) 160 - 400 X10*3/uL [facility] Mean Platelet Volume 12.8(H) 9.4 - 12.4 fL [facility] Neutrophils Percent Auto 49.3 45 - 73 % [facility] Imm Gran Pct Auto 0.2 0.0 - 0.4 % [facility] Lymphocytes Percent Auto 38.3 20 - 40 % [facility] Monocytes Percent Auto 6.6 2 - 11 % [facility] Eosinophils Percent Auto 4.6(H) 0 - 4 % [facility] Basophils Percent Auto 1.0 0 - 2 % [facility] NRBC Pct Auto 0.0 0.0 - 0.2 /100WBC [facility] Neutrophils Absolute Auto 3.0 2.0 - 8.3 x10*3/uL [facility] Imm Gran Abs Auto 0.01 0.00 - 0.03 X10*3/uL [facility] Lymphocytes Absolute Auto 2.3 1.2 - 4.9 X10*3/uL [facility] Monocytes Absolute Auto 0.4 0.1 - 1.2 X10*3/uL [facility] Eosinophils Absolute Auto 0.3 0.0 - 0.4 X10*3/uL [facility] Basophils Absolute Auto 0.1 0.0 - 0.2 X10*3/uL [facility] NRBC Abs Auto 0.000 0.0 - 0.012 X10*3/uL [facility] Blood Venous blood specimen / Unknown 07/09/2024 11:17 AM EDT 07/09/2024 2:09 PM EDT us Marie Reeves MD LAB BLOOD ORDERABLES Final Result [facility] [address] [place] [phone] * (ABNORMAL) Basic Metabolic Panel (07/09/2024 11:17 AM EDT) Sodium 143 135 - 145 mmol/L [facility] Potassium 4.2 3.3 - 5.1 mmol/L [facility] Chloride 105 96 - 108 mmol/L [facility] Carbon Dioxide 31(H) 22 - 29 mmol/L [facility] Anion Gap 11(L) 12 - 20 [facility] Urea Nitrogen (BUN) 12 9 - 16 mg/dL [facility] Creatinine, Serum 0.88 0.5 - 1.4 mg/dL [facility] Estimated Glomerular Filt Rate >60 [facility] Comment:Chronic Kidney Disea se: Estimated GFR < 60 mL/min/1.03g7Iblufw Kidney Disease: Estimated GFR < 15 mL/min/1.73m2 Glucose 224(H) 60 - 115 mg/dL [facility] Calcium 9.2 8.4 - 10.2 mg/dL [facility] Blood Venous blood specimen / Unknown 07/09/2024 11:17 AM EDT 07/09/2024 2:09 PM EDT us Marie Reeves MD LAB BLOOD ORDERABLES Final Result [facility] [address] [place] [phone] * (ABNORMAL) POCT A1C (07/09/2024 10:34 AM EDT) Hemoglobin A1C 10.8(A) 4.0 - 6.0 % QC Media Lot # Comment:[id number] Lot# Expiration Date Comment: Blood 07/09/2024 10:3 4 AM EDT us Marie Reeves MD POINT OF CARE TEST ENTER/ED IT ORDERABLES Final Result * (ABNORMAL) POCT glucose manually resulted (07/09/2024 10:33 AM EDT) Glucose Blood, POC 278(A) 60 - 200 mg/dL QC Media Lot # Comment:[id number] Lot# Expiration Date Comment:10/31/2024 Blood Capillary blood specimen / Unknown 07/09/2024 10:33 AM EDT us Marie Reeves MD POINT OF CARE TEST ENTER/ED IT ORDERABLES Final Result * (ABNORMAL) Lipid Panel, Standard (04/12/2024 9:12 AM EST) Triglycerides 54 <150 mg/dL [facility] Comment:Desirable Triglyceri de: less than 150 mg/dLBorderline High Triglyceride 150-199 mg/dLHigh Triglyceride: 200-499 mg/dLVery High Triglyceride: greater than or equal to 5OO mg/dL Cholesterol 98 <200 mg/dL [facility] Comment:Desirable Cholestero l: less than 200 mg/dLBorderline High Cholesterol: 200-239 mg/dLHigh Cholesterol: greater than 239 mg/dL LDL Cholesterol Calculated 55 <100 mg/dL [facility] Comment:Desirable LDL: less than 100 mg/dLNear Optimal/Above Optimal LDL: 110- 129 mg/dLBorderline High LDL: 130-159 mg/dLHigh LDL: 160-189 mg/dLVery High LDL: greater than or equal to 190 mg/dL HDL Cholesterol 33(L) >40 mg/dL [facility] Comment:Desirable HDL: great er than 40 mg/dL Note: This HDL assay may give artificially low results in patients with liver disease. Blood Venous blood specimen / Unknown 04/12/2024 9:12 AM EST 04/12/2024 2:18 PM EST us Earlene Beck MD LAB BLOOD ORDERABLES Final Resul t [facility] [address] [place] [phone] [phone] from Last 3 Months or Most Recently Relevant to Health Maintenance Insurance - [employer] Care Teams Hydraulic Blocker Relationship Specialty Start Date End Date Earlene Beck MD [address] [place] [phone] PCP - General Family Medicine 02/26/20
--- OUTSIDE RECORDS SUMMARY | 2024-08-22 16:00 | XMS_ITS | Encounter Summary ---
Author Organization [employer] [facility] Address [address] [place] [address] 7t [place] [address] Care Team Providers Care Scowman Name Role Phone Earlene Beck MD Primary Care Provider [phone] Reason for Visit * Reason Comments Med Refill Encounter Details Date Type Department Care Team (Late Contact Info) Description 05/12/2022 Refill [facility] [address] [place] [address] Earlene Beck MD [address] [place] [address] Irritable bowel syndrome with diarrhea; Gastro-esophageal reflux [...] Description 08/28/2024 10:15 AM EDT Office Visit [facility] & PEDS [address] [place] [address] Earleen Beck MD [address] [place] [address] 09/26/2024 1:00 PM EDT Medication Management [facility] [address] [place] [address] WarrenEstela PharmD [address] [place] [address] documented as of this encounter Visit Diagnoses Diagnosis Irritable bowel syndrome with diarrhea Irritable bowel syndrome Gastro-esophageal reflux disease without esophagitis documented in this encounter Care Teams Scowman Relationship Specialty Start Date End Date Earlene Beck MD [address] [place] [address] PCP - General Family Medicine 02/26/20 documented as of this encounter
--- OUTSIDE RECORDS SUMMARY | 2024-08-22 16:00 | XMS_ITS | Data Portability ---
Author Organization [employer] Address [address] [place] [phone] Care Team Providers Care Vp Transportation Name Role Phone [facility] Referring Provider [facility] Referring Provider [phone] Assessment Encounter Date Assessment Date Assessment LastModified by Organization Details LastModified Time 08/23/2022 08/23/2022 I have reviewed and agree with the Assessment and Plan as documented by the Construction Craft Laborer. I provided real-time medical direction via phone [...] [id number] Theodore Yun MD Main - [facility] [address] [place] [phone] 08/23/2022 13:24:48 08/25/2022 11:38:02 Cough 00980530 R05.9 Health Concerns Section Related Observation LastModified by Organization Detai ls LastModified Time None Recorded Concern Status LastModified by Organization Details LastModified Time None Recorded Advance Directives Directive None Recorded Payers Encounter Date Sequence Insurance Name Policy Number Policy Ford Covered Member ID Ford Member ID Guarantor Name 08/23/2022 1 [facility] - DOS PRIOR TO 2022 - DUAL ELIGIBLE (MEDICARE REPLACEMENT/ADV ANTAGE - HMO) Aravind Mosqueda [id number] Aravind Mosqueda Notes Date Note Type Note [...] .................. .................. .................. .................. .................. .................. ............... Construction Craft Laborer Note From Jory Yoon: Community Construction Craft Laborer Earlene Yoon SC6 dispatched to a [facility] for a 57 yom C/O [...] ............... Disposition: Fulfilled Theodore Yun MD [address] [facility],[address], [place], [address], [employer] 08/23/2022 17:10:22
--- OUTSIDE RECORDS SUMMARY | 2024-08-22 16:00 | XMS_ITS | Encounter Summary ---
Author Organization [employer] Address [address] [place] [address] Care Team Providers Care Quality Assurance Tester Name Role Phone Earlene Beck MD Primary Care Provider [phone] Encounter Details Date Type Department Care Team ([facility] st Contact Info) Description 08/21/[address] [facility] MED & PEDS [address] [place], [place] [phone] Earlene Beck MD [address] [place] [address] Social History Tobacco Use Types Packs/Day Years [...] Description 08/28/2024 10:15 AM EDT Office Visit [facility] PEDS [address] [place] [address] Earlene Beck MD [address] [place] [address] 09/26/2024 1:00 PM EDT Medication Management [facility] P[facility] [address] [place] [address] Estela Warren, PharmD [address] [place] [address] documented as of this encounter Visit Diagnoses Not on filedocumented in this encounter Care Teams Quality Assurance Tester Relationship Specialty Start Date End Date Earlene Beck MD [address] [place] [address] PCP - General Family Medicine 02/26/20 documented as of this encounter
--- OUTSIDE RECORDS SUMMARY | 2024-08-22 16:00 | XMS_ITS | Encounter Summary ---
Author Organization [facility] [facility] Address [address] [place] [address] 7 [place] [address] Care Team Providers Care Extension Educator Name Role Phone Earlene Beck MD Primary Care Provider [phone] Reason for Visit * Reason Comments Med Refill Encounter Details Date Type Department Care Team ([facility] Contact Info) Description 01/07/2023 Refill [facility] MED & PEDS [address] [place] [address] Marie Reeves MD [address] [place] [address] Osteoarthritis of multiple joints, unspecified osteoarthritis type [...] Description 08/28/2024 10:15 AM EDT Office Visit [facility] MED & PEDS [address] [place] [address] Earlene Beck MD [address] [place] [address] 09/26/2024 1:00 PM EDT Medication Management [facility] [address] [place] [address] Estela Warren PharmD [address] [place] [address] documented as of this encounter Visit Diagnoses Diagnosis Osteoarthritis of multiple joints, unspecified osteoarthritis type documented in this encounter Care Teams Extension Educator Relationship Specialty Start Date End Date Earlene Beck MD [address] [place] [address] PCP - General Family Medicine 02/26/20 documented as of this encounter
--- OUTSIDE RECORDS SUMMARY | 2024-08-22 16:00 | XMS_ITS | Encounter Summary ---
Author Organization [employer] [facility] Address [address] [place] [address] 7 [place] [address] Care Team Providers Care Sas Developer Name Role Phone Earlene Beck MD Primary Care Provider [phone] Reason for Visit * Reason Comments Med Refill Encounter Details Date Type Department Care Team (Late Contact Info) Description 05/12/2022 Refill [facility] MED & PEDS [address] [place] [address] Earlene Beck MD [address] [place] [address] Irritable bowel syndrome with diarrhea; Type 2 diabetes mellitus without complications ([facility]) Social History Tobacco Use Types [...] Description 08/28/2024 10:15 AM EDT Office Visit [facility] MED & PEDS [address] [place] [address] Earlene Beck MD [address] [place] [address] 09/26/2024 1:00 PM EDT Medication Management [facility] MED & PEDS [address] [place] [address] Estela Warren, PharmD [address] [place] [address] documented as of this encounter Visit Diagnoses Diagnosis Irritable bowel syndrome with diarrhea Irritable bowel syndrome Type 2 diabetes mellitus without complications ([facility]) documented in this encounter Care Teams Sas Developer Relationship Specialty Start Date End Date Earlene Beck MD [address] [place] [address] PCP - General Family Medicine 02/26/20 documented as of this encounter
--- OUTSIDE RECORDS SUMMARY | 2024-08-22 16:00 | XMS_ITS | Clinical Summary ---
Author Organization [address] [facility] Address [address] [place] [address] Phone Care Team Providers Care Exhibit Electrician Name Role Phone Earlnee Beck MD Primary Care Provider [phone] Allergies Active Allergy Reactions Criticality Noted Date Comments Naproxen 03/25/2024 Medications ciclopirox (LOPROX) 0.77 % gel Apply topically 2 (two) times a day. 45 g 5 08/29/19 Active Active Problems Problem Noted Date Diagnosed Date Diabetic neuropathy, type II diabetes mellitus ([facility] V24, [facility] V28) 03/18/2024 Long-term insulin use in typ e 2 diabetes ([facility] V24, [facility] V28) 03/18/2024 Seizure ([facility] V24, [facility] V28) 03/18/2024 COPD (chronic obstructive pu lmonary disease) ([facility] V24, [facility] V28) 03/18/2024 Encounters Date Type Department Care Team Description 05/30/2024 9:30 AM EST Office Visit [facility] [place] [address] [address] Oracio Smalls, DPM Dermatophytosis of nail (Primary Dx); Diabetic mononeuropathy simplex ([facility] V24, [facility] V28); Tinea pedis of both feet from [...] PM EDT Office Visit [facility] [place] [address] [address] Oracio Smalls, DPM [address] [address] Health Maintenance Due Date Last Done Comments [...] Group ID:ICO Type:Not on file Address: COLT[facility] [place] [address] Care Teams Exhibit Electrician Relationship Specialty Start Date End Date Earlene Beck MD [address] [place] [id number] PCP - General 12/27/23
--- OUTSIDE RECORDS SUMMARY | 2024-08-22 16:01 | XMS_ITS | Encounter Summary ---
Author Organization [employer] Address [address] 7[address] [place] [address] Care Team Providers Care Hotel Front Desk Agent Name Role Phone Earlene Beck MD Primary Care Provider [phone] Reason for Visit * Reason Onset Date Comments Lab Orders 02/22/2024 Encounter Details Date Type Department Care Team ([facility] st Contact Info) Description 02/22/2024 Telephone [facility] [address] [place] [address] Earlene Beck MD [address] [place] [address] Lab Orders Social History Tobacco Use Types [...] [facility] MED [facility] PEDS [address] [place] [address] Earlene Beck MD [address] [place] [address] 09/26/2024 1:00 PM EDT Medication Management [facility] PEDS [address] [place] [address] Estela Warren, PharmD [address] [place] [address] documented as of this encounter Visit Diagnoses Not on filedocumented in this encounter Care Teams Hotel Front Desk Agent Relationship Specialty Start Date End Date Earlene Beck MD [address] [place] [address] PCP - General Family Medicine 02/26/20 documented as of this encounter
--- OUTSIDE RECORDS SUMMARY | 2024-08-22 16:01 | XMS_ITS | Encounter Summary ---
Author Organization [facility] [facility] Address [address] [place] [address] 7t [place] [address] Care Team Providers Care Eyelet Punch Operator Name Role Phone Earlene Beck MD Primary Care Provider [phone] Encounter Details Date Type Department Care Team (Latest Contact Info) Description 06/08/2020 Abstract [facility] CONVERSIONS Dental, Provider, DDS Social History Tobacco [...] [facility] [address] [place] [address] Earlene Beck MD [address] [place] [address] 09/26/2024 1:00 PM EDT Medication Management [facility] [address] [place] [address] Estela Warren PharmD [address] [place] [address] documented as of this encounter Visit Diagnoses Not on filedocumented in this encounter Care Teams Eyelet Punch Operator Relationship Specialty Start Date End Date Earlene Beck MD [address] [place] [address] PCP - General Family Medicine 02/26/20 documented as of this encounter
--- OUTSIDE RECORDS SUMMARY | 2024-08-22 16:01 | XMS_ITS | Encounter Summary ---
Author Organization [employer] Address [address] [facility] [address] [facility] [address] [place] [address] Care Team Providers Care Balance And Hairspring Assembler Name Role Phone Earlene Beck MD Primary Care Provider [phone] Encounter Details Date Type Department Care Team ([facility] st Contact Info) Description 04/29/2024 Orders Only [facility] MED & PEDS [address] [place] [address] ProviderKat MD Social History Tobacco Use Types [...] Description 08/28/2024 10:15 AM EDT Office Visit [facility] MED & PEDS [address] [place] [address] Earlene Beck MD [address] [place] [address] 09/26/2024 1:00 PM EDT Medication Management [facility] MED & PEDS [address] [place], [place] [phone] Estela Warren PharmD [address] [place] [address] documented as of this encounter Procedures Procedure Name Priority Date/Time Associated Diagnosis Comments HEMOGLOBIN A1C Routine 04/10/2024 9:26 AM EST documented in this encounter Results * Hemoglobin A1c (04/10/2024 9:26 AM EST) Blood Venous blood specimen / Unknown us Historical Provider LAB BLOOD ORDERABLES Yasmeen l Result documented in this encounter Visit Diagnoses Not on filedocumented in this encounter Care Teams Balance And Hairspring Assembler Relationship Specialty Start Date End Date Earlene Beck MD [address] [place] [address] PCP - General Family Medicine 02/26/20 documented as of this encounter
--- OUTSIDE RECORDS SUMMARY | 2024-08-22 16:01 | XMS_ITS | Encounter Summary ---
Author Organization [employer] [facility] Address [address] [place] [address] 7t [place] [address] Care Team Providers Care Parish Visitor Name Role Phone Earlene Beck MD Primary Care Provider [phone] Encounter Details Date Type Department Care Team (Latest Contact Info) Description 11/09/2018 Abstract [facility] CONVERSIONS Dental, Provider, DDS Social History [...] Care Team ( st Contact Info) Description 08/28/2024 10:15 AM EDT Office Visit [facility] MED & PEDS [address] [place] [address] Earlene Beck MD 505 [place] [address] 09/26/2024 1:00 PM EDT Medication Management [facility] MED & PEDS [address] [place] [address] Estela Warren, BrianD [address] [place] [address] documented as of this encounter Visit Diagnoses Not on filedocumented in this encounter Care Teams Parish Visitor Relationship Specialty Start Date End Date Earlene Beck MD [address] [place] [address] PCP - General Family Medicine 02/26/20 documented as of this encounter
--- OUTSIDE RECORDS SUMMARY | 2024-08-22 16:01 | XMS_ITS | Encounter Summary ---
Author Organization [employer] [facility] Address [address] [place] [address] 7t [place] [address] Care Team Providers Care Sanitation Worker Hosing Machinery Name Role Phone Earlene Beck MD Primary Care Provider [phone] Reason for Visit * Reason Comments Med Refill Encounter Details Date Type Department Care Team (Late Contact Info) Description 01/10/2023 Refill [facility] MED & PEDS [address] [place] [address] Marie Reeves MD [address] [place] [address] Irritable bowel syndrome with diarrhea Social History [...] EDT Office Visit [facility] MED & PEDS [address] [place] [address] Earlene Beck MD [address] [place] [address] 09/26/2024 1:00 PM EDT Medication Management [facility] MED & PEDS [address] [place] [address] Estela Warren, BrianD [address] [place] [address] documented as of this encounter Visit Diagnoses Diagnosis Irritable bowel syndrome with diarrhea Irritable bowel syndrome documented in this encounter Care Teams Sanitation Worker Hosing Machinery Relationship Specialty Start Date End Date Earlene Beck MD [address] [place] [address] PCP - General Family Medicine 02/26/20 documented as of this encounter
--- OUTSIDE RECORDS SUMMARY | 2024-08-22 16:01 | XMS_ITS | Encounter Summary ---
Author Organization [employer] Address [address] [facility] 7t [place] [address] Care Team Providers Care Senior Software Quality Engineer Name Role Phone Earlene Beck MD Primary Care Provider [phone] Reason for Visit * Reason Comments Med Refill Encounter Details Date Type Department Care Team ([facility] st Contact Info) Description 01/04/2024 Refill [facility] CH[facility] MED & PEDS [address] [place], [place] [phone] Emelina Carmona MD [address] [place] [address] Social History Tobacco Use Types Packs/Day Years [...] Description 08/28/2024 10:15 AM EDT Office Visit [facility] MED & PEDS [address] [place] [address] Earlene Beck MD [address] [place] [address] 09/26/2024 1:00 PM EDT Medication Management [facility] MED & PEDS [address] [place] [address] Estela Warren, PharmD [address] [place] [address] documented as of this encounter Visit Diagnoses Not on filedocumented in this encounter Care Teams Senior Software Quality Engineer Relationship Specialty Start Date End Date Earlene Beck MD [address] [place] [address] PCP - General Family Medicine 02/26/20 documented as of this encounter
--- OUTSIDE RECORDS SUMMARY | 2024-08-22 16:01 | XMS_ITS | Encounter Summary ---
Author Organization [employer] [facility] Address [address] [place] [address] 7t [place] [address] Care Team Providers Care Diamond Cleaver Name Role Phone Earlene Beck MD Primary Care Provider [phone] Encounter Details Date Type Department Care Team (Latest Contact Info) Description 05/09/[address] [facility] CONVERSIONS Dental, Provider, DDS Social History [...] [facility] MED & PEDS [address] [place] [address] Earlene Beck MD [address] [place] [address] 09/26/2024 1:00 PM EDT Medication Management [facility] MED & PEDS [address] [place] [address] Estela Warren, BrianD [address] [place] [address] documented as of this encounter Visit Diagnoses Not on filedocumented in this encounter Care Teams Diamond Cleaver Relationship Specialty Start Date End Date Earlene Beck MD [address] [place] [address] PCP - General Family Medicine 02/26/20 documented as of this encounter
== END 2024-08-22 14:06 | disposition home or self-care (01) ==
LOC: HO.HGI 13:40
PROVIDERS: PCP Student in an Organized Health Care Education/Training Program; Visit Provider Nurse Practitioner
DX: R10.9 Unspecified abdominal pain (principal); K21.9 Gastro-esophageal reflux disease without esophagitis; I77.810 Thoracic aortic ectasia; I42.9 Cardiomyopathy, unspecified
CPT/HCPCS: 99214

== ENCOUNTER → 2024-08-22 13:39 | Outpatient (BNVA) | payer OTHER, SELFPAY | PROVIDERS: PCP Student in an Organized Health Care Education/Training Program; Visit Provider Nurse Practitioner | DX: K21.9 Gastro-esophageal reflux disease without esophagitis (principal); K58.0 Irritable bowel syndrome with diarrhea; R10.9 Unspecified abdominal pain; I77.810 Thoracic aortic ectasia; I42.9 Cardiomyopathy, unspecified | CPT/HCPCS: 99212 ==

== ENCOUNTER 2024-09-05 16:14 | Outpatient (REF) | payer OTHER, SELFPAY ==
--- NOTE | ~2024-09-05 | MR_ITS ---
EXAMINATION: MR ABDOMEN WITHOUT THEN WITH IV CONTRAST HISTORY: R10.9 - Unspecified abdominal pain COMPARISON: Correlation is made with an unenhanced CT of the abdomen and pelvis dated 10/27/2022. TECHNIQUE: Axial in and out of phase T1-weighted gradient echo, axial diffusion weighted, and axial and coronal HASTE T2 with fat saturation images were obtained through the abdomen. Subsequently, fat suppressed axial and coronal T1-weighted images were obtained after the intravenous administration of 7 mL Gadavist. FINDINGS: There is no significant signal loss within the liver on opposed phase imaging to suggest steatosis. There is a 1.8 cm T2 hyperintense mass in the subcapsular dome of the left lobe which demonstrates intense enhancement on the arterial phase without washout. Findings likely represent a flash filling hemangioma. No additional liver mass is identified. There is no intrahepatic biliary ductal dilatation. The hepatic and portal veins are patent. The gallbladder, spleen, and pancreas are unremarkable. The pancreatic duct is normal in caliber. The adrenal glands are unremarkable. There is an 8 mm cyst at the upper pole of the right kidney and a 1.6 cm cyst at the lower pole of the left kidney. The stomach is distended with debris. No retroperitoneal lymphadenopathy or ascites is identified in the upper abdomen. There is a tiny left pleural effusion. The visualized bones demonstrate normal marrow signal intensity. MR/MR abdomen wo/w con IMPRESSION: 1. 1.8 cm probable flash filling hemangioma at the dome of the left lobe of the liver. Follow-up is suggested. 2. Bilateral renal cysts as described. 3. The stomach is distended with debris. Correlation with the timing of the patient's last meal is recommended. If there is clinical concern for delayed gastric emptying, a nuclear medicine gastric emptying study could be performed. 4. Tiny left pleural effusion. Electronically signed by: Radhames Brown MD 09/06/2024 07:49 AM EDT
--- OUTSIDE RECORDS SUMMARY | 2024-09-05 16:18 | XMS_ITS | Encounter Summary ---
Author Organization [employer] Address [address] [facility] 7t [place] [address] Care Team Providers Care Installation Drafter Name Role Phone Earlene Beck MD Primary Care Provider [phone] Reason for Visit * Reason Onset Date Comments Lab Orders 02/22/2024 Encounter Details Date Type Department Care Team ([facility] st Contact Info) Description 02/22/2024 Telephone [facility] MEDICINE [address] [place] [address] Earlene Beck MD [address] [place] [address] Lab Orders Social History Tobacco Use Types [...] Care Team (Late st Contact Info) Description 09/26/2024 1:00 PM EDT Medication Management [facility] MED & PEDS [address] [place] [address] Estela Warren, PharmD [address] [place] [address] documented as of this encounter Visit Diagnoses Not on filedocumented in this encounter Care Teams Installation Drafter Relationship Specialty Start Date End Date Earlene Beck MD [address] [place] [address] PCP - General Family Medicine 02/26/20 documented as of this encounter
--- OUTSIDE RECORDS SUMMARY | 2024-09-05 16:18 | XMS_ITS | Encounter Summary ---
Author Organization [employer] Address [address] [facility] [address] [place] [address] Care Team Providers Care Safety Scientist Name Role Phone Earlene Beck MD Primary Care Provider [phone] Encounter Details Date Type Department Care Team ([facility] st Contact Info) Description 04/29/[address] [facility] CHC MED & PEDS [address] [place] [address] ProviderKat MD Social History Tobacco Use Types [...] Description 09/26/2024 1:00 PM EDT Medication Management [facility] MED & PEDS [address] [place] [address] Estela Warren PharmD [address] [place] [address] documented as of this encounter Procedures Procedure Name Priority Date/Time Associated Diagnosis Comments HEMOGLOBIN A1C Routine 04/10/2024 9:26 AM EST documented in this encounter Results * Hemoglobin A1c (04/10/2024 9:26 AM EST) Blood Venous blood specimen / Unknown Historical Provider LAB BLOOD ORDERABLES Yasmeen l Result documented in this encounter Visit Diagnoses Not on filedocumented in this encounter Care Teams Safety Scientist Relationship Specialty Start Date End Date Earlene Beck MD [address] [place] [address] PCP - General Family Medicine 02/26/20 documented as of this encounter
--- OUTSIDE RECORDS SUMMARY | 2024-09-05 16:18 | XMS_ITS | Encounter Summary ---
Author Organization [employer] Address [address] [facility] 7t [place] [address] Care Team Providers Care Heat Treating Operator Name Role Phone Earlene Beck MD Primary Care Provider [phone] Encounter Details Date Type Department Care Team (Latest Contact Info) Description 05/09/2018 Abstract [facility] CONVERSIONS Dental, Provider, DDS Social History [...] Description 09/26/2024 1:00 PM EDT Medication Management [facility] CH[facility] MED & PEDS [address] [place] [address] Estela Warren, PharmD [address] [place] [address] documented as of this encounter Visit Diagnoses Not on filedocumented in this encounter Care Teams Heat Treating Operator Relationship Specialty Start Date End Date Earlene Beck MD [address] [place] [address] PCP - General Family Medicine 02/26/20 documented as of this encounter
--- OUTSIDE RECORDS SUMMARY | 2024-09-05 16:18 | XMS_ITS | Clinical Summary ---
Author Organization [facility] Address [address] [place] [address] Phone Care Team Providers Care Litigation Claim Representative Name Role Phone Earlene Beck MD Primary Care Provider [phone] Allergies Active Allergy Reactions Criticality Noted Date Comments Naproxen 03/25/2024 Medications ciclopirox (LOPROX) 0.77 % gel Apply topically 2 (two) times a day. 45 g 08/29/19 Active Problems Problem Noted Date Diagnosed Date Diabetic neuropathy, type II diabetes mellitus ([facility] V24, [facility] V28) 03/18/2024 Long-term insulin use in typ e 2 diabetes ([facility] V24, [facility] V28) 03/18/2024 Seizure ([facility] V24, [facility] V28) 03/18/2024 COPD (chronic obstructive pu lmonary disease) ([facility] V24, [facility] V28) 03/18/2024 Social History Tobacco Use Types Packs/Day Years [...] Upcoming Encounters Date Type Department Care Team ([facility] st Contact Info) Description 10/10/2024 1:00 PM EDT Office Visit [facility] [place] [address] [phone] Oracio Smalls, DPGonzález [address] [address] Health Maintenance Due Date Last Done Comments [...] ID:[id number] Group ID:[id number] Type:Not on file Address: [place] [address] [address] [phone] Care Teams Litigation Claim Representative Relationship Specialty Start Date End Date Earlene Beck MD [address] [place] [id number] PCP - General 12/27/23
--- OUTSIDE RECORDS SUMMARY | 2024-09-05 16:18 | XMS_ITS | Data Portability ---
Author Organization [employer] Address [address] [place] [phone] Care Team Providers Care Principal Accounts Clerk Name Role Phone [facility] Referring Provider [facility] PRIMARY CARE Referring Provider Assessment Encounter Date Assessment Date Assessment LastModified by Organization Details LastModified Time 08/23/2022 08/23/2022 I have reviewed and agree with the Assessment and Plan as documented by the Upper Trimmer. I provided real-time medical direction via phone [...] [id number] Theodore Yun MD Main - [facility] [address] [place] [phone] 08/23/2022 13:24:48 08/25/2022 11:38:02 Cough [id number] R05.9 Health Concerns Section Related Observation LastModified by Organization Detai ls LastModified Time None Recorded Concern Status LastModified by Organization Details LastModified Time None Recorded Advance Directives Directive None Recorded Payers Insurance Date Sequence Insurance Name Policy Number Policy Ford Covered Member ID Ford Member ID Guarantor Name 06/25/2023 1 [facility] - DOS PRIOR TO 2022 - DUAL ELIGIBLE (MEDICARE REPLACEMENT/AD VANTAGE - HMO) Aravind Floriciano [id number] Aravind Panda 06/25/2023 1 [facility] DOS ON OR AFTER 2022 - DUAL ELIGIBLE - NURSING HOME OPTIONS AND ONE CARE (MEDICARE REPLACEMENT/AD VANTAGE - HMO) Aravind Mosqueda [id number] Aravind Mosqueda Notes Date Note Type Note [...] .................. .................. .................. .................. .................. .................. ............... Upper Trimmer Note From Jory Yoon: Community Upper Trimmer Earlene Yoon SC6 dispatched [facility] a [facility] for a 57 yom C/O a [...] Disposition: Fulfilled Theodore Yun MD [address] [facility],[address], [place], [address], [place] [employer] 08/23/2022 17:10:22
--- OUTSIDE RECORDS SUMMARY | 2024-09-05 16:18 | XMS_ITS | Encounter Summary ---
Author Organization [employer] Address [address] [place] [address] 7[address] [place] [address] Care Team Providers Care Nursing Assistant Name Role Phone Earlene Beck MD Primary Care Provider [phone] Reason for Visit * Reason Comments Med Refill Encounter Details Date Type Department Care Team ([facility] Contact Info) Description 05/12/2022 Refill [facility] MED & PEDS [address] [place] [address] Earlene Beck MD [address] [place] [address] Irritable bowel syndrome with diarrhea; Type 2 [...] Department Care Team (Late Contact Info) Description 09/26/2024 1:00 PM EDT Medication Management [facility] MED & PEDS [address] [place] [address] Estela Warren, PharmD [address] [place], [place] [phone] documented as of this encounter Visit Diagnoses Diagnosis Irritable bowel syndrome with diarrhea Irritable bowel syndrome Type 2 diabetes mellitus without complications (CMS/HCC) documented in this encounter Care Teams Nursing Assistant Relationship Specialty Start Date End Date Earlene Beck MD [address] [place] [address] PCP - General Family Medicine 02/26/20 documented as of this encounter
--- OUTSIDE RECORDS SUMMARY | 2024-09-05 16:18 | XMS_ITS | Encounter Summary ---
Author Organization [employer] Address [address] [facility] 7t [place] [address] Care Team Providers Care Solar Technician Name Role Phone Earlene Beck MD Primary Care Provider [phone] Encounter Details Date Type Department Care Team (Latest Contact Info) Description 11/09/2018 Abstract [facility] CONVERSIONS Dental, Provider, DDS Social History Tobacco [...] Description 09/26/2024 1:00 PM EDT Medication Management [facility] CH[facility] MED & PEDS [address] [place] [address] Estela Warren, PharmD [address] [place] [address] documented as of this encounter Visit Diagnoses Not on filedocumented in this encounter Care Teams Solar Technician Relationship Specialty Start Date End Date Earlene Beck MD [address] [place] [address] PCP - General Family Medicine 02/26/20 documented as of this encounter
--- OUTSIDE RECORDS SUMMARY | 2024-09-05 16:18 | XMS_ITS | Encounter Summary ---
Author Organization [employer] Address [address] [facility] 7t [place] [address] Care Team Providers Care Gun Perforator Name Role Phone Earlene Beck MD Primary Care Provider [phone] Reason for Visit * Reason Comments Med Refill Encounter Details Date Type Department Care Team ([facility] Contact Info) Description 05/12/2022 Refill [facility] MED & PEDS [address] [place] [address] Earlene Beck MD [address] [place] [address] Irritable bowel syndrome with diarrhea; Gastro-esophageal reflux [...] Upcoming Encounters Date Type Department Care Team ([facility] Contact Info) Description 09/26/2024 1:00 PM EDT Medication Management [facility] MED & PEDS [address] [place] [address] Estela Warren, PharmD [address] [place] [address] documented as of this encounter Visit Diagnoses Diagnosis Irritable bowel syndrome with diarrhea Irritable bowel syndrome Gastro-esophageal reflux disease without esophagitis documented in this encounter Care Teams Gun Perforator Relationship Specialty Start Date End Date Earlene Beck MD [address] [place] [address] PCP - General Family Medicine 02/26/20 documented as of this encounter
--- OUTSIDE RECORDS SUMMARY | 2024-09-05 16:18 | XMS_ITS | Clinical Summary ---
Author Organization [employer] Address [address] [facility] 7[address] [place] [address] Care Team Providers Care Dry Pan Feeder Name Role Phone Earlene Beck MD Primary Care Provider [phone] Allergies Active Allergy Reactions Criticality Noted Date Comments Naproxen 06/11/2013 Medications * This document contains information received from the source organization and may not represent a complete record from that organization. amitriptyline (Elavil) 75 MG tablet Take 75 mg by mouth at bedtime. 022 Active famotidine (Pepcid) 40 MG tabletIndication s:Epigastric pain Take 1 tablet (40 mg) by mouth at bedtime. 90 tablet 1 023 Active acetaminophen (Tylenol 8 Hour) 650 MG ER tabletIndication s:Osteoarthritis of multiple joints, unspecified osteoarthritis type TAKE TWO TABLETS BY MOUTH EVERY 8 HOURS NEEDED WITH WATER DO NOT BREAK, CRUSH, DISSOLVE OR CHEW 90 tablet 11 023 Active Umeclidinium [place] (Incruse Ellipta) 62.5 MCG/ACT aerosol powderIndication s:Chronic obstructive pulmonary disease, unspecified COPD type (CMS/HCC) INHALE 1 PUFF DAILY AT THE SAME TIME EACH DAY IN THE MORNING 1 each 3 023 Active ammonium lactate (Lac-Hydrin) 12 % lotion APPLY ON FEET ONCE DAILY 226 g 11 023 Active Blood Glucose Monitoring Suppl (FreeStyle [place] Lite) w/Device kit 023 Active Viberzi 75 MG tablet TAKE ONE TABLET TWICE DAILY WITH MEALS OR WITH FOOD 023 Active Blood Pressure kitIndications:E levated blood pressure reading 1 Units in the morning. 1 kit 07/03/2 023 Active Continuous Blood Gluc Data Center Operator (FreeStyle Hetal 2 [place]) deviceIndication s:Type 2 diabetes mellitus with diabetic neuropathy, with long-term current use of insulin ([facility]) Use to monitor interstitial glucose 8 times a day and prn. 1 each 023 Active carvedilol (Coreg) 12.5 MG tablet TAKE ONE TABLET TWICE DAILY IN THE MORNING AND AT BEDTIME WITH FOOD 180 tablet Active Aspirin Adult Low Strength 81 MG EC tablet TAKE ONE TABLET EVERY MORNING 90 tablet Active Pentips 32G X 4 MM misc USE TO INJECT INSULIN DAILY 100 each Active FREESTYLE LITE test stripIndications :Type 2 diabetes mellitus with diabetic neuropathy, with long-term current use of insulin ([facility]) TEST BLOOD SUGAR UP TO THREE TIMES DAILY DIRECTED 100 strip Active Easy Touch Lancets 33G/Twist miscIndications: Type 2 diabetes mellitus with diabetic neuropathy, with long-term current use of insulin ([facility]) TEST BLOOD SUGAR THREE TIMES DAILY [...] THE MORNING AND AT BEDTIME 60 tablet Active Continuous Glucose Data Center Operator (FreeStyle Hetal 2 [place]) device Scan sensor every 8 hours 1 each Active glucose blood (FreeStyle Precision Hardik Test) test strip Use to test blood sugar 3 times daily 100 each 024 2024 Active Diclofenac Sodium 1 % gel APPLY 2 GRAM'S TO AFFECTED AREA(s) TWICE DAILY NEEDED 100 g 3 024 Active esomeprazole (NexIUM) [address] capsuleIndicatio ns:Gastroesophag eal reflux disease without esophagitis TAKE ONE CAPSULE EVERY MORNING BEFORE BREAKFAST 90 capsule 1 024 Active Alcohol Swabs (Alcohol Prep) 70 % pads USE THREE DAILY 100 each 5 024 Active cholecalciferol VITAMIN D (Vitamin D-3) 50 MCG (2000 UT) capsule TAKE ONE CAPSULE EVERY MORNING 90 capsule 3 024 Active Continuous Glucose Sensor (FreeStyle Hetal 2 [...] tablet Take 500 mg by mouth. Active atorvastatin (Lipitor) 80 MG tablet TAKE ONE TABLET EVERY NIGHT AT BEDTIME 30 tablet Active cetirizine (ZyrTEC) 10 MG tablet TAKE ONE TABLET EVERY MORNING 30 tablet Active dapagliflozin (Farxiga) 10 MGIndications:Ty pe 2 diabetes mellitus with diabetic neuropathy, with long-term current use of insulin ([facility]) Take 1 tablet (10 mg) by mouth Once per day. 30 tablet 2025 Active gabapentin (Neurontin) 800 MG tabletIndication s:Osteoarthritis of multiple joints, unspecified osteoarthritis type TAKE ONE TABLET EVERY MORNING and TAKE TWO TABLETS EVERY DAY AT BEDTIME 90 tablet Active dicyclomine (Bentyl) 20 MG tabletIndication s:Irritable bowel syndrome with diarrhea TAKE ONE TABLET in the morning, at noon, in the evening, and at bedtime 120 tablet Active clotrimazole (Lotrimin) 1 % cream apply to the affected area(s) twice daily Active Continuous Glucose Data Center Operator (FreeStyle Hetal 3 [place]) deviceIndication s:Type 2 diabetes mellitus with diabetic neuropathy, with long-term current use of insulin ([facility]) 1 each Once per day. Use as directed for CGM 1 each Active Continuous Glucose Sensor (FreeStyle Hetal 3 Plus Sensor) miscIndications: Type 2 diabetes mellitus with diabetic neuropathy, with long-term current use of insulin (CMS/HCC) 1 each every 15 days. Apply 1 every 15 days as directed for CGM 2 each Active glucose blood (FreeStyle Precision Hardik Test) test strip Use to test blood sugar 2 times daily in case of CGM failure or extremes of BG 100 each 2025 Active metFORMIN (Glucophage) 1000 MG tabletIndication s:Type 2 diabetes mellitus with diabetic polyneuropathy ([facility]) Take 1 tablet (1,000 mg) by mouth with breakfast and with evening meal. 180 tablet 1 Active Dulaglutide 1.5 MG/0.5ML solution auto-injectorInd ications:Type 2 diabetes mellitus with diabetic neuropathy, with long-term current use of insulin ([facility]) Inject 1.5 mg under the skin 1 (one) time per week. 2 mL 3 025 2025 Active Combivent Respimat 20-100 MCG/ACT inhalerIndicatio ns:Chronic obstructive pulmonary disease, unspecified COPD type ([facility]) INHALE 1 PUFF 4 TIMES A DAY, MAY TAKE ADDITIONAL PUFFS NEEDED. (MAX 6 PUFFS PER DAY) 12 g 1 Active Toujeo SoloStar 300 UNIT/ML injection INJECT 20 UNITS SUBCUTANEOUSLY EVERY NIGHT AT BEDTIME 4.5 mL 3 Active oxyCODONE-acetam inophen (Percocet) 5-325 MG tablet TAKE ONE TABLET BY MOUTH ONCE DAILY NEEDED FOR PAIN 2024 Discontinued dulaglutide (Trulicity) 3 MG/0.5ML solution pen-injector Inject 3 mg under the skin 1 (one) time per week. 4 each 2 023 2024 Discontinued(R eorder (will not trigger notification to Pharmacy)) Tourika SoloStar 300 UNIT/ML injection INJECT 20 UNITS SUBCUTANEOUSLY AT BEDTIME 4.5 mL 3 024 2024 Discontinued metFORMIN (Glucophage) 1000 MG tabletIndication s:Type 2 diabetes mellitus with diabetic polyneuropathy (CMS/HCC) TAKE ONE TABLET IN THE MORNING AND EVENING 180 tablet 1 024 2024 Discontinued(R eorder (will not trigger notification to Pharmacy)) amLODIPine (Norvasc) 2.5 MG tablet Take 2.5 mg by mouth in the morning. 024 2024 Discontinued(M ed list cleanup (will not trigger notification to Pharmacy)) Combivent Respimat 20-100 MCG/ACT inhalerIndicatio ns:Chronic obstructive pulmonary disease, unspecified COPD type (CMS/HCC) INHALE 1 PUFF 4 TIMES A DAY, MAY TAKE ADDITIONAL PUFFS NEEDED. (MAX 6 PUFFS PER DAY) 12 g 1 025 2024 Discontinued Ciclopirox 0.77 % gel Apply topically 2 times daily. 025 2024 Active Problems Problem Noted Date Diagnosed Date Abdominal pain 10/31/2022 Assessment & Plan (10/31/2022 9:41 AM EDT): Advised patient to call to schedule an appointment with GI Dr. Elvi Darling. Hyperkalemia 10/31/2022 Assessment & Plan (10/31/2022 9:41 AM EDT): Patient seen in [facility] on 10/07/22 for abdominal pain with [...] Encounters Date Type Department Care Team Description 08/30/2024 Refill [facility] [address] [place] [address] Earlene Beck MD 08/29/2024 Refill [facility] [address] [place] [address] Earlene Beck MD Chronic obstructive pulmonary disease, unspecified COPD type ([facility]/HCC) 08/28/2024 10:15 AM EDT Office Visit [facility] [address] [place] [address] Earlene Beck MD Type 2 diabetes mellitus with diabetic neuropathy, with long-term current use of insulin ([facility]) (Primary Dx); Cardiomyopathy, unspecified type (CMS/HCC); Screen for STD (sexually transmitted disease); S/P shoulder surgery 08/28/2024 Travel 08/27/2024 Telephone [facility] [address] [facility] [place] [phone] Earlene Beck MD Chart Prep 08/27/2024 Refill [facility] [address] [place] [address] Earlene Beck MD Type 2 diabetes mellitus with diabetic polyneuropathy ([facility]/HCC) 08/26/2024 Refill [facility] [address] [place] [address] Earlene Beck MD Type 2 diabetes mellitus with diabetic polyneuropathy ([facility]/HCC) 08/26/2024 Orders Only [facility] [address] [place] [address] Earlene Beck MD Type 2 diabetes mellitus with diabetic neuropathy, with long-term current use of insulin ([facility]/HCC) (Primary Dx) 08/21/2024 Telephone [facility] [address] [place] [address] Earlene Beck MD 07/31/2024 Orders Only GENERIC EXTERNAL DATA DEPARTMENT Provider, Generic External Data 07/30/2024 Refill [facility] [address] [place] [address] Earlene Beck MD Osteoarthritis of multiple joints, unspecified osteoarthritis type; Irritable bowel syndrome with diarrhea 07/10/2024 Telephone [facility] [address] [place] [address] Marie Reeves MD PCP Contact 07/09/2024 10:15 AM EDT Office Visit [facility] [address] [place] [address] Marie Reeves MD Pre-op evaluation (Primary Dx); Type 2 diabetes mellitus with diabetic neuropathy, with long-term current use of insulin (CMS/HCC) 07/09/2024 Travel 06/14/[address], [place] [phone] Earlene Beck MD Pre-op Exam from Last 3 Months Immunizations Name Administration [...] drink = 0.6 oz pur e alcohol) Depression Answer Date Recorded Patient Health Questionnaire-9 Score 4 08/28/2024 Patient Health Questionnaire-9 Score 4 08/28/2024 Last PHQ-9: Questionnaire Data Not on file 0 08/28/2024 Housing Stability Answer Date Recorded What is your housing situation today? I have gianni carbajal 08/28/[address] you li ve. Do you have problems with any of the following? None of the above 08/28/2024 Food Insecurity Answer Date Recorded Within the past 12 months, y ou worried that your food would run out before you got money to buy more: Never True 08/28/2024 Within the past 12 months,th e food you bought just didn't last and you didn't have enough money to get more: Never True Transportation Answer Date Recorded In the past 12 months, has l ack of transportation kept you from medical appts, meetings, work or from getting things needed for daily living? No 08/28/2024 Utilities Answer Date Recorded In the past 12 months, has t he electric, gas, oil or water company threatened to shut off services in your home? No 08/28/2024 Depression Answer Date Recorded Patient Health Questionnaire-2 Score 2 08/28/2024 Internet Access Answer Date Recorded Internet Access Q1 No 08/28/2024 Internet Access Q2 I do not want or need it 08/01 Sex and Gender Information Value Date Recorded Sex Assigned at Male 02/28/2022 10:15 AM EDT Legal Sex Male 10:15 AM EDT Gender Identity Male 02/28/2022 10:15 AM EDT Sexual Orientation Choose not to disclose 2021 10:15 AM EDT Last Filed Vital Signs Vital Sign Reading Time Taken Comments Blood Pressure 124/83 08/28/2024 10:23 AM EDT Pulse 68 08/28/2024 10:23 AM EDT Temperature 36.3 ??C (97.3 ??F) 08/28/2024 10:23 AM E DT Respiratory Rate 18 08/28/2024 10:23 AM EDT Oxygen Saturation 99% 08/28/2024 10:23 AM EDT Inhaled Oxygen Concentration - - Weight 61.2 kg (135 lb) 08/28/2024 10:23 AM EDT Height 175.3 cm (5' 9 ) 08/28/2024 10:23 AM EDT Body Mass Index 19.94 08/28/2024 10:23 AM EDT Plan of Treatment Upcoming Encounters Date Type Department Care Team (Late st Contact Info) Description 09/26/2024 1:00 PM EDT Medication Management [facility] [address] [place], [place] [phone] Estela Warren, PharmD [address] [place] [address] Health Maintenance Due Date Last Done Comments CT Colonography 1965 FIT DNA/Cologuard 1965 FIT 1965 FOBT 1965 HIV Screening 1965 Sigmoidoscopy 1965 Alcohol/Substance Use Screening 1977 Hepatitis C Screening 1983 Diabetes: Urine Protein Screening 1984 Diabetes: Foot Exam 09/01/2023 08/31/2022, Diabetes: Hemoglobin A1C 10/09/2024 025, 04/10/2024, 02/26/2024, Additional history exists Colonoscopy 11/28/2024 Colorectal Cancer Screening 11/28/2024 Lipid Panel 04/12/2025 04/12/2024, 06/02, 09/16/2022, Additional history exists Depression Screening 08/28/2025 08/28/2024, 08/29/19 25 SDOH Screening 08/28/2025 08/28/2024 Tobacco Screening 08/28/2025 08/28/2024 Eye Exam 04/12/2026 04/12/2024, 03/31, 04/12/2024, Additional [...] Procedure Name Priority Date/Time Associated Diagnosis Comments POCT GLUCOSE Routine 08/28/2024 10:25 AM EDT Type 2 diabetes mellitus with diabetic neuropathy, with long-term current use of insulin (CMS/[facility]) GLUCOSE, WHOLE BLOOD Routine 07/31/2024 12:02 PM EDT ECG 12-LEAD Routine 07/09/2024 1:01 PM EDT Pre-op evaluation CBC WITH AUTO DIFFERENTIAL Routine 07/09/2024 11:17 AM EDT Pre-op evaluation BASIC METABOLIC PANEL Routine 07/09/2024 11:17 AM EDT Pre-op evaluation POCT GLYCATED HEMOGLOBIN, TOTAL Routine 07/09/2024 10:34 AM EDT Type 2 diabetes mellitus with diabetic neuropathy, with long-term current use of insulin ([facility]) POCT GLUCOSE Routine 07/09/2024 10:33 AM EDT Type 2 diabetes mellitus with diabetic neuropathy, with long-term current use of insulin (CMS/[facility]) LIPID PANEL, STANDARD Routine 04/12/2024 9:12 AM EST Type 2 diabetes mellitus with diabetic neuropathy, with long-term current use of insulin (CMS/[facility]) from Last 3 Months or Most Recently Relevant to Health Maintenance Results * (ABNORMAL) POCT Glucose (08/28/2024 10:25 AM EDT) Only the most recent of2 resultswithin the time period is included. Pathologist [facility] Glucose Blood, POC 274(A) 60 - 200 mg/dL QC Media Lot # [id number] Lot# Expiration Date Blood Capillary blood specimen / Unknown 08/28/2024 10:25 AM EDT Earlene Beck MD POINT OF CARE TEST ENTER/EDIT OR DERABLES Final Result * (ABNORMAL) Glucose, Whole Blood (07/31/2024 12:02 PM EDT) Pathologist [facility] Glucose, Whole Blood 231(H) 60 - 115 mg/dL [facility] Comment:METER #: [id number] 07/31/2024 12:0 2 PM EDT 07/31/2024 12:06 PM EDT Generic External Data Provider LAB BLOOD ORDERAB LES Final Result [facility] [address] [place] [address] [phone] * ECG 12 lead (07/09/2024 1:01 PM EDT) Narrative Marie Reeves MD - 07/09/2024 1:01 PM EDT Heart rate 58 bpm. ??[place] 51 degrees. ??Normal sinus rhythm. ??No sign of left atrial enlargement or right atrial enlargement. ??No sign of hypertrophy. ??No ST elevation or ST depression. Normal ECG. us Marie Reeves MD ECG ORDERABLES Final Resul t * (ABNORMAL) CBC auto differential (07/09/2024 11:17 AM EDT) [facility] White Blood Count 6.0 4.8 - 10.8 X10*3/uL [facility] Red Blood Count 5.06 4.60 - 5.80 X10*6/uL [facility] Hemoglobin 13.4(L) 14.0 - 18.0 g/dl [facility] Hematocrit 43.4 42.0 - 52.0 % [facility] Mean Corpuscular Volume 85.8 80.0 - 98.0 fL [facility] Mean Corpuscular Hemoglobin 26.5(L) 27.0 - 33.0 pg [facility] Mean Corpuscular HGB Conc 30.9(L) 31.0 - 36.0 g/dl [facility] Red Cell Distribution Width 14.8 11.0 - 16.0 % [facility] Platelet Count 149(L) 160 - 400 X10*3/uL [facility] Mean Platelet Volume 12.8(H) 9.4 - 12.4 fL [facility] Neutrophils Percent Auto 49.3 45 - 73 % [facility] Imm Gran Pct Auto 0.2 0.0 - 0.4 % [facility] Lymphocytes Percent Auto 38.3 20 - 40 % [facility] Monocytes Percent Auto 6.6 2 - 11 % [facility] Eosinophils Percent Auto 4.6(H) 0 - 4 % [facility] Basophils Percent Auto 1.0 0 - 2 % [facility] NRBC Pct Auto 0.0 0.0 - 0.2 /100WBC [facility] Neutrophils Absolute Auto 3.0 2.0 - 8.3 x10*3/uL [facility] Imm Gran Abs Auto 0.01 0.00 - 0.03 X10*3/uL [facility] Lymphocytes Absolute Auto 2.3 1.2 - 4.9 X10*3/uL [facility] Monocytes Absolute Auto 0.4 0.1 - 1.2 X10*3/uL [facility] Eosinophils Absolute Auto 0.3 0.0 - 0.4 X10*3/uL [facility] Basophils Absolute Auto 0.1 0.0 - 0.2 X10*3/uL [facility] NRBC Abs Auto 0.000 0.0 - 0.012 X10*3/uL [facility] Blood Venous blood specimen / Unknown 07/09/2024 11:17 AM EDT 07/09/2024 2:09 PM EDT us Marie Reeves MD LAB BLOOD ORDERABLES Final Result Performing Organization Address City/[facility]/ZIP Co de Phone Number [facility] [address] [place] [address] [phone] * (ABNORMAL) Basic Metabolic Panel (07/09/2024 11:17 AM EDT) Sodium 143 135 - 145 mmol/L [facility] Potassium 4.2 3.3 - 5.1 mmol/L [facility] Chloride 105 96 - 108 mmol/L [facility] Carbon Dioxide 31(H) 22 - 29 mmol/L [facility] Anion Gap 11(L) 12 - 20 [facility] Urea Nitrogen (BUN) 12 9 - 16 mg/dL [facility] Creatinine, Serum 0.88 0.5 - 1.4 mg/dL [facility] Estimated Glomerular Filt Rate >60 [facility] Comment:Chronic Kidney Disea se: Estimated GFR < 60 mL/min/[id number] Kidney Disease: Estimated GFR < 15 mL/min/1.73m2 Glucose 224(H) 60 - 115 mg/dL [facility] Calcium 9.2 8.4 - 10.2 mg/dL [facility] Blood Venous blood specimen / Unknown 07/09/2024 11:17 AM EDT 07/09/2024 2:09 PM EDT us Marie Reeves MD LAB BLOOD ORDERABLES Final Result Performing Organization Address City/[facility]/ZIP Co de Phone Number [facility] [address] [place] [address] [phone] * (ABNORMAL) POCT A1C (07/09/2024 10:34 AM EDT) Hemoglobin A1C 10.8(A) 4.0 - 6.0 % QC Media Lot # Comment:[id number] Lot# Expiration Date Comment: Blood 07/09/2024 10:3 4 AM EDT us Marie Reeves MD POINT OF CARE TEST ENTER/ED IT ORDERABLES Final Result * (ABNORMAL) Lipid Panel, Standard (04/12/2024 9:12 AM EST) Triglycerides 54 <150 mg/dL [facility] Comment:Desirable Triglyceri de: less than 150 mg/dLBorderline High Triglyceride 150-199 mg/dLHigh Triglyceride: 200-499 mg/dLVery High Triglyceride: greater than or equal to 5OO mg/dL Cholesterol 98 <200 mg/dL [facility] Comment:Desirable Cholestero l: less than 200 mg/dLBorderline High Cholesterol: 200-239 mg/dLHigh Cholesterol: greater than 239 mg/dL LDL Cholesterol Calculated 55 <100 mg/dL [facility] Comment:Desirable LDL: less than 100 mg/dLNear Optimal/Above Optimal LDL: 110- 129 mg/dLBorderline High LDL: 130-159 mg/dLHigh LDL: 160-189 mg/dLVery High LDL: greater than or equal to 190 mg/dL HDL Cholesterol 33(L) >40 mg/dL [facility] Comment:Desirable HDL: great er than 40 mg/dL Note: This HDL assay may give artificially low results in patients with liver disease. Blood Venous blood specimen / Unknown 04/12/2024 9:12 AM EST 04/12/2024 2:18 PM EST us Earlene Beck MD LAB BLOOD ORDERABLES Final Resul t [facility] [address] [place] [address] [phone] from Last 3 Months or Most Recently Relevant to Health Maintenance Insurance [employer] < [address] [place] [id number] Care Teams Dry Pan Feeder Relationship Specialty Start Date End Date Earlene Beck MD [address] [place] [phone] PCP - General Family Medicine 02/26/20
--- OUTSIDE RECORDS SUMMARY | 2024-09-05 16:18 | XMS_ITS | Encounter Summary ---
Author Organization [employer] Address [address] [place] [address] 7 [place] [address] Care Team Providers Care Geographic Information Systems Director Name Role Phone Earlene Beck MD Primary Care Provider Reason for Visit * Reason Comments Med Refill Encounter Details Date Type Department Care Team ([facility] Contact Info) Description 01/07/2023 Refill [facility] [address] [place] [address] Marie Reeves MD [address] [place] [address] Osteoarthritis of multiple joints, unspecified osteoarthritis type [...] [facility] [address] [place] [address] Estela Warren, PharmD [address] [place] [address] documented as of this encounter Visit Diagnoses Diagnosis Osteoarthritis of multiple joints, unspecified osteoarthritis type documented in this encounter Care Teams Geographic Information Systems Director Relationship Specialty Start Date End Date Earlene Beck MD [address] [place] [address] PCP - General Family Medicine 02/26/20 documented as of this encounter
--- OUTSIDE RECORDS SUMMARY | 2024-09-05 16:18 | XMS_ITS | Encounter Summary ---
Author Organization [employer] Address [address] [facility] [address]t [place] [address] Care Team Providers Care Property Master Name Role Phone Earlene Beck MD Primary Care Provider [phone] Reason for Visit * Reason Comments Med Refill Encounter Details Date Type Department Care Team ([facility] st Contact Info) Description 01/04/2024 Refill [facility] [address] [place], [place] [phone] Emelina Carmona MD [address] [place], [place] [phone] Social History Tobacco Use Types Packs/Day Years [...] [facility] [address] [place] [address] Estela Warren, PharmD [address] [place] [address] documented as of this encounter Visit Diagnoses Not on filedocumented in this encounter Care Teams Property Master Relationship Specialty Start Date End Date Earlene Beck MD [address] [place] [address] PCP - General Family Medicine 02/26/20 documented as of this encounter
--- OUTSIDE RECORDS SUMMARY | 2024-09-05 16:18 | XMS_ITS | Encounter Summary ---
Author Organization [employer] Address [address] [place] [address] 7 [place] [address] Care Team Providers Care Plane Runner Name Role Phone Earlene Beck MD Primary Care Provider [phone] Reason for Visit * Reason Comments Med Refill Encounter Details Date Type Department Care Team ([facility] Contact Info) Description 01/10/2023 Refill [facility] [address] [place] [address] Marie Reeves MD [address] [place] [address] Irritable bowel syndrome with diarrhea Social History [...] Upcoming Encounters Date Type Department Care Team ([facility] Contact Info) Description 09/26/2024 1:00 PM EDT Medication Management [facility] [address] [place] [address] Estela Warren, PharmD [address] [place] [address] documented as of this encounter Visit Diagnoses Diagnosis Irritable bowel syndrome with diarrhea Irritable bowel syndrome documented in this encounter Care Teams Plane Runner Relationship Specialty Start Date End Date Earlene Beck MD [address] [place] [address] PCP - General Family Medicine 02/26/20 documented as of this encounter
--- OUTSIDE RECORDS SUMMARY | 2024-09-05 16:18 | XMS_ITS | Encounter Summary ---
Author Organization [email or web address] Address [address] [facility] 7t [place] [address] Care Team Providers Care Language Teacher Name Role Phone Earlene Beck MD Primary Care Provider [phone] Encounter Details Date Type Department Care Team (Latest Contact Info) Description 06/08/2020 Abstract [facility] CONVERSIONS Dental, Provider, DDS Social History Tobacco [...] 1:00 PM EDT Medication Management [facility] MED & PEDS [address] [place] [address] Estela Warren, PharmD [address] [place] [address] documented as of this encounter Visit Diagnoses Not on filedocumented in this encounter Care Teams Language Teacher Relationship Specialty Start Date End Date Earlene Beck MD [address] [place] [address] PCP - General Family Medicine 02/26/20 documented as of this encounter
--- OUTSIDE RECORDS SUMMARY | 2024-09-05 16:18 | XMS_ITS | Encounter Summary ---
Author Organization [employer] Address [address] [facility] 7t [place] [address] Care Team Providers Care Manager Audit Name Role Phone Earlene Beck MD Primary Care Provider [phone] Reason for Visit * Reason Comments Med Refill Encounter Details Date Type Department Care Team ([facility] st Contact Info) Description 08/26/2024 Refill [facility] CHC MED & PEDS [address] [place], [place] [phone] Earlene Beck MD [address] [place] [address] Type 2 diabetes mellitus with diabetic polyneuropathy (CMS/HCC) Social History Tobacco Use Types Packs/Day [...] Description 09/26/2024 1:00 PM EDT Medication Management [facility] MED & PEDS [address] [place] [address] Estela Warren, PharmD [address] [place] [address] documented as of this encounter Visit Diagnoses Diagnosis Type 2 diabetes mellitus with diabetic polyneuropathy (CMS/HCC) documented in this encounter Care Teams Manager Audit Relationship Specialty Start Date End Date Earlene Beck MD [address] [place] [address] PCP - General Family Medicine 02/26/20 documented as of this encounter
[2024-09-05] MEDS: gadobutroL 7.5 ML VIAL IVPUSH (16:53)
== END 2024-09-05 16:15 | disposition home or self-care (01) ==
LOC: HO.MRI 16:14
PROVIDERS: PCP Student in an Organized Health Care Education/Training Program; Visit Provider Nurse Practitioner
DX: R10.9 Unspecified abdominal pain (principal); I82.0 Budd-Chiari syndrome
CPT/HCPCS: 74183; A9585

== ENCOUNTER → 2024-09-05 16:21 | Outpatient (BNV) | payer OTHER, SELFPAY | PROVIDERS: PCP Student in an Organized Health Care Education/Training Program; Visit Provider Radiology Diagnostic Radiology | DX: N28.1 Cyst of kidney, acquired (principal) | CPT/HCPCS: 74183 ==

== ENCOUNTER 2024-09-12 13:20 | Outpatient (AMB) | payer OTHER, SELFPAY ==
--- NOTE | 2024-09-12 13:25 | A.OFFVIS_ITS ---
Intake Visit Reasons: PO RT RTC 07/31/24 NE Intake Note: Aravind is a 59 year old right hand dominant male who presents today for a post operative visit about one month s/p Right RTC Repair 07/31/24. He is doing well he continues to wear his sling Allergies naproxen [From NAPROSYN] Allergy (Mild, Verified 08/22/24 13:51) HIVES HPI HPI PO RT RTC 07/31/24 NE: Details: 6 weeks s/p r RTC repair. Doing PT. Mild stiffness. Pain tolerable. [facility] Medical History (Updated 08/22/24 @ 16:53 by DARIEL CampbellC) Encounter for preoperative pulmonary examination Dysfunction of right rotator cuff Back pain Takotsubo cardiomyopathy Bilateral shoulder pain Irritable bowel syndrome with diarrhea Periumbilical abdominal pain Diarrhea Preop cardiovascular exam Long-term insulin use in type 2 diabetes Diabetes type 2, uncontrolled Tobacco abuse Sleep apnea Myocardial infarction BPH (benign prostatic hyperplasia) Depression Thrombocytopenia Alcohol abuse Peripheral neuropathy COPD (chronic obstructive pulmonary disease) Seizures Essential hypertension Hyperlipidemia LDL goal <70 Type 2 diabetes mellitus with diabetic polyneuropathy Surgical History (Updated 09/12/24 @ 15:15 by Tomy Vee MD) Status post right rotator cuff repair Status post chest tube placement H/O cardiac catheterization Hx of shoulder surgery History of esophagogastroduodenoscopy (EGD) H/O colonoscopy History of arthroscopic surgery of shoulder Hx of hernia repair Hx of pneumonectomy Hx of knee surgery Family History Father Cancer Diabetes Mother CVD (cardiovascular disease) Social History Household Members: Spouse Alcohol intake: never Patient Tobacco Use Status: Former Tobacco user Tobacco use type: Cigarette Years Smoked: 40 Current occupational status: unemployed Current occupation: Right Handed Physical Exam Extrem Other: 20 deg ER portals c/d/i 70 deg abd Assessment & Plan Assessment & Plan (1) S/P rotator cuff repair: Code(s): Z98.890 - Other specified postprocedural states Category: Surgical Plan: Doing well PT and dc sling f/u 6 weeks last rx for pain written Coding Level of Care Code Global (72679) Diagnoses S/P rotator cuff repair Z98.890
--- OUTSIDE RECORDS SUMMARY | 2024-09-12 13:56 | XMS_ITS | Encounter Summary ---
Author Organization [employer] Address [address] [facility] 7t [place] [address] Care Team Providers Care Adult Neuropsychologist Name Role Phone Earlene Beck MD Primary Care Provider Reason for Visit * Reason Comments Med Refill Encounter Details Date Type Department Care Team ([facility] st Contact Info) Description 01/04/2024 Refill [facility] CHC MED & PEDS [address] [place], [place] [phone] Emelina Carmona MD [address] [place], [place] [phone] Social History Tobacco Use Types Packs/Day Years [...] [facility] [address] [place] [address] Estela Warren, PharmD [address] [place] [address] documented as of this encounter Visit Diagnoses Not on filedocumented in this encounter Care Teams Adult Neuropsychologist Relationship Specialty Start Date End Date Earlene Beck MD [address] [place] [address] PCP - General Family Medicine 02/26/20 documented as of this encounter
--- OUTSIDE RECORDS SUMMARY | 2024-09-12 13:56 | XMS_ITS | Encounter Summary ---
Author Organization [employer] Address [address] [facility] 7t [place] [address] Care Team Providers Care Aboriginal Education Worker Coordinator Name Role Phone Earlene Beck MD Primary Care Provider [phone] Encounter Details Date Type Department Care Team (Latest Contact Info) Description 05/09/2018 Abstract [facility] CONVERSIONS Dental, Provider, DDS Social History [...] Description 09/26/2024 1:00 PM EDT Medication Management [facility] CHC MED & PEDS [address] [place] [address] Estela Warren, PharmD [address] [place] [address] documented as of this encounter Visit Diagnoses Not on filedocumented in this encounter Care Teams Aboriginal Education Worker Coordinator Relationship Specialty Start Date End Date Earlene Beck MD [address] [place] [address] PCP - General Family Medicine 02/26/20 documented as of this encounter
--- OUTSIDE RECORDS SUMMARY | 2024-09-12 13:56 | XMS_ITS | Encounter Summary ---
Author Organization [employer] Address [address] [facility] 7t [place] [address] Care Team Providers Care Head Pastry Chef Name Role Phone Earlene Beck MD Primary Care Provider [phone] Reason for Visit * Reason Comments Med Refill Encounter Details Date Type Department Care Team ([facility] st Contact Info) Description 08/26/2024 Refill [facility] CHC MED & PEDS [address] [place], [place] [phone] Earlene Beck MD [address] [place] [address] Type 2 diabetes mellitus with diabetic polyneuropathy [...] AM EDT documented as of this encounter Functional Status * Over the past 2 weeks, how often have you been bothered by any of the following problems? Question Answer Date of Assessment Author Patient Health Questionnaire -2 Score 2 08/28/2024 10:26 AM EDT Mirta Rojo [place] * Little interest or pleasure in doing things Answer Date of Assessment Author Several days 08/28/2024 10:26 AM González Zavala [place] * Feeling down, depressed, or hopeless Answer Date of Assessment Author Several days 08/28/2024 10:26 AM González Zavala [place] * Trouble falling or staying asleep, or sleeping too much Answer Date of Assessment Author Several days 08/28/2024 10:26 AM González Zavala [place] * Feeling tired or having little energy Answer Date of Assessment Author Not at all 08/28/2024 10:26 AM González Zavala [place] * Poor appetite or overeating Answer Date of Assessment Author Several days 08/28/2024 10:26 AM González Zavala [place] * Feeling bad about yourself - or that you are a failure or have let yourself or your family down Answer Date of Assessment Author Not at all 08/28/2024 10:26 AM González Zavala [place] * Trouble concentrating on things, such as reading the newspaper or watching television Answer Date of Assessment Author Not at all 08/28/2024 10:26 AM González Zavala [place] * Moving or speaking so slowly that other people could have noticed? Or the opposite - being so fidgety or restless that you have been moving around a lot more than usual. Answer Date of Assessment Author Not at all 08/28/2024 10:26 AM González Zavala MA * Thoughts that you would be better off or hurting yourself in some way Answer Date of Assessment Author Not at all 08/28/2024 10:26 AM González Zavala MA * Patient Health Questionnaire-9 Score Answer Date of Assessment Author 4 08/28/2024 10:26 AM González Zavala [place] * How difficult have these problems made it for you to do your work, take care of things at home, or get along with other people? Answer Date of Assessment Author Somewhat difficult 08/28/2024 10:26 AM Mirta Zavala [place] documented as of this encounter Plan of Treatment Upcoming Encounters Date Type Department Care Team (Late st Contact Info) Description 09/26/2024 1:00 PM EDT Medication Management [facility] CHC MED & PEDS [address] [place] [address] Estela Warren, PharmD [address] [place] [address] documented as of this encounter Visit Diagnoses Diagnosis Type 2 diabetes mellitus with diabetic polyneuropathy ([facility]/HCC) documented in this encounter Care Teams Head Pastry Chef Relationship Specialty Start Date End Date Earlene Beck MD [address] [place] [address] PCP - General Family Medicine 02/26/20 documented as of this encounter
--- OUTSIDE RECORDS SUMMARY | 2024-09-12 13:56 | XMS_ITS | Encounter Summary ---
Author Organization [employer] Address [address] [place] [address] [address] [place] [address] Care Team Providers Care Senior Loan Officer Name Role Phone Earlene Beck MD Primary Care Provider [phone] Reason for Visit * Reason Comments Med Refill Encounter Details Date Type Department Care Team ([facility] Contact Info) Description 05/12/2022 Refill [facility] MED & PEDS [address] [place] [address] Earlene Beck MD [address] [place] [address] Irritable bowel syndrome with diarrhea; Type 2 [...] Description 09/26/2024 1:00 PM EDT Medication Management [facility] MED & PEDS [address] [place] [address] Estela Warren, PharmD [address] [place], [place] [phone] documented as of this encounter Visit Diagnoses Diagnosis Irritable bowel syndrome with diarrhea Irritable bowel syndrome Type 2 diabetes mellitus without complications (CMS/HCC) documented in this encounter Care Teams Senior Loan Officer Relationship Specialty Start Date End Date Earlene Beck MD [address] [place] [address] PCP - General Family Medicine 02/26/20 documented as of this encounter
--- OUTSIDE RECORDS SUMMARY | 2024-09-12 13:56 | XMS_ITS | Encounter Summary ---
Author Organization [employer] Address [address] [facility] 7t [place] [address] Care Team Providers Care Brush Cutter Name Role Phone Earlene Beck MD Primary Care Provider [phone] Reason for Visit * Reason Onset Date Comments Med Refill 09/10/2024 Encounter Details Date Type Department Care Team ([facility] st Contact Info) Description 09/10/2024 Telephone [facility] CHC MED & PEDS [address] [place] [address] Earlene Beck MD [address] [place] [address] Med Refill Social History Tobacco Use Types Packs/Day Years [...] encounter Miscellaneous Notes * Telephone Encounter - Kae Mosqueda LPN - 09/10/2024 12:30 PM EDT Patient has refills.Needs to call the pharmacy * Telephone Encounter - Shiraz Jain - 09/10/2024 12:09 PM EDT Patient in requesting med refill for the FreeStyle Lancets. Patient has been without it for two months. documented in this encounter Plan of Treatment Upcoming Encounters Date Type Department Care Team (Late st Contact Info) Description 09/26/2024 1:00 PM EDT Medication Management [facility] MED & PEDS [address] [place] [address] Estela Warren, PharmD [address] [place] [address] documented as of this encounter Visit Diagnoses Not on filedocumented in this encounter Additional Health Concerns Assessment Noted Time PHQ-9 Depression Total Score: 4 08/29/19 25 10:26 AM EDT documented as of this encounter Care Teams Brush Cutter Relationship Specialty Start Date End Date Earlene Beck MD [address] [place] [address] PCP - General Family Medicine 02/26/20 documented as of this encounter
--- OUTSIDE RECORDS SUMMARY | 2024-09-12 13:56 | XMS_ITS | Encounter Summary ---
Author Organization [employer] Address [address] [facility] 7t [place] [address] Care Team Providers Care Stripper Printed Circuit Boards Name Role Phone Earlene Beck MD Primary Care Provider [phone] Reason for Visit * Reason Comments Med Refill Encounter Details Date Type Department Care Team ([facility] Contact Info) Description 05/12/2022 Refill [facility] MED & PEDS [address] [place] [address] Earlene Beck MD [address] [place] [address] Irritable bowel syndrome with diarrhea; Gastro-esophageal reflux [...] Upcoming Encounters Date Type Department Care Team ([facility] Contact Info) Description 09/26/2024 1:00 PM EDT Medication Management [facility] MED & PEDS [address] [place] [address] Estela Warren, PharmD [address] [place] [address] documented as of this encounter Visit Diagnoses Diagnosis Irritable bowel syndrome with diarrhea Irritable bowel syndrome Gastro-esophageal reflux disease without esophagitis documented in this encounter Care Teams Stripper Printed Circuit Boards Relationship Specialty Start Date End Date Earlene Beck MD [address] [place] [address] PCP - General Family Medicine 02/26/20 documented as of this encounter
--- OUTSIDE RECORDS SUMMARY | 2024-09-12 13:56 | XMS_ITS | Encounter Summary ---
Author Organization [employer] Address [address] [facility] 7t [place] [address] Care Team Providers Care Power Wood Sawyer Name Role Phone Earlene Beck MD Primary Care Provider [phone] Reason for Visit * Reason Onset Date Comments Lab Orders 02/22/2024 Encounter Details Date Type Department Care Team ([facility] st Contact Info) Description 02/22/2024 Telephone [facility] MEDICINE [address] [place] [address] Earlene Beck MD [address] [place] [address] Lab Orders Social History Tobacco Use Types [...] Description 09/26/2024 1:00 PM EDT Medication Management [facility] MED & PEDS [address] [place] [address] Estela Warren, PharmD [address] [place] [address] documented as of this encounter Visit Diagnoses Not on filedocumented in this encounter Care Teams Power Wood Sawyer Relationship Specialty Start Date End Date Earlene Beck MD [address] [place] [address] PCP - General Family Medicine 02/26/20 documented as of this encounter
--- OUTSIDE RECORDS SUMMARY | 2024-09-12 13:56 | XMS_ITS | Clinical Summary ---
Author Organization [employer] Address [address] [facility] 7[address] [place] [address] Care Team Providers Care Publishing Systems Analyst Name Role Phone Earlene Beck MD Primary Care Provider [phone] Allergies Active Allergy Reactions Criticality Noted Date [...] CHEW 90 tablet 11 023 Active Umeclidinium [place] (Incruse Ellipta) 62.5 MCG/ACT aerosol powderIndication s:Chronic obstructive pulmonary disease, unspecified COPD type (CMS/HCC) INHALE 1 PUFF DAILY AT THE SAME TIME EACH DAY IN THE MORNING 1 each 3 023 Active ammonium lactate (Lac-Hydrin) 12 % lotion APPLY ON FEET ONCE DAILY 226 g 11 023 Active Blood Glucose Monitoring Suppl (FreeStyle [place] Lite) w/Device kit 023 Active Viberzi 75 MG tablet TAKE ONE TABLET TWICE DAILY WITH MEALS OR WITH FOOD 023 Active Blood Pressure kitIndications:E levated blood pressure reading 1 Units in the morning. 1 kit 07/03/2 023 Active Continuous Blood Gluc Heel Burnisher (FreeStyle Hetal 2 [place]) deviceIndication s:Type 2 diabetes mellitus with diabetic neuropathy, with long-term current use of insulin ([facility]) Use to monitor interstitial glucose [...] neuropathy, with long-term current use of insulin ([facility]) TEST BLOOD SUGAR UP TO THREE TIMES DAILY DIRECTED 100 strip Active Easy Touch Lancets 33G/Twist miscIndications: Type 2 diabetes mellitus with diabetic neuropathy, with long-term current use of insulin ([facility]) TEST BLOOD SUGAR THREE TIMES [...] AT BEDTIME 60 tablet Active Continuous Glucose Heel Burnisher (FreeStyle Hetal 2 [place]) device Scan sensor every 8 hours 1 [...] neuropathy, with long-term current use of insulin ([facility]) Take 1 tablet (10 mg) [...] affected area(s) twice daily Active Continuous Glucose Heel Burnisher (FreeStyle Hetal 3 [place]) deviceIndication s:Type 2 diabetes mellitus with diabetic neuropathy, with long-term current use of insulin ([facility]) 1 each Once per day. Use as [...] s:Type 2 diabetes mellitus with diabetic polyneuropathy ([facility]) Take 1 tablet (1,000 mg) by mouth with breakfast and with evening meal. 180 tablet 1 Active Dulaglutide 1.5 MG/0.5ML solution auto-injectorInd ications:Type 2 diabetes mellitus with diabetic neuropathy, with long-term current use of insulin ([facility]) Inject 1.5 mg under the skin 1 (one) time per week. 2 mL 3 025 2025 Active Combivent Respimat 20-100 MCG/ACT inhalerIndicatio ns:Chronic obstructive pulmonary disease, unspecified COPD type ([facility]) INHALE 1 PUFF 4 TIMES [...] (10/31/2022 9:41 AM EDT): Patient seen in [facility] ED on 10/07/22 for abdominal pain with [...] Encounters Date Type Department Care Team Description 09/10/2024 Telephone [facility] [address] [place] [address] Earlene Beck MD Med Refill 08/30/2024 Refill [facility] [address] [facility] [place] [address] Earlene Beck MD 08/29/2024 Refill [facility] [address] [facility] [place] [address] Earlene Beck MD Chronic obstructive pulmonary disease, unspecified COPD type ([facility]) 08/28/2024 10:15 AM EDT Office Visit [facility] [address] [facility] [place] [address] Earlene Beck MD Type 2 diabetes mellitus with diabetic neuropathy, with long-term current use of insulin ([facility]/HCC) (Primary Dx); Cardiomyopathy, unspecified type (CMS/HCC); Screen for STD (sexually transmitted disease); S/P shoulder surgery 08/28/2024 Travel 08/27/2024 Telephone [facility] [address] [facility] [place] [address] Earlene Beck MD Chart Prep 08/27/2024 Refill [facility] [address] [facility] [place] [address] Earlene Beck MD Type 2 diabetes mellitus with diabetic polyneuropathy (CMS/HCC) 08/26/2024 Refill [facility] [address] [place] [address] Earlene Beck MD Type 2 diabetes mellitus with diabetic polyneuropathy (CMS/HCC) 08/26/2024 Orders Only [facility] [address] [place] [address] Earlene Beck MD Type 2 diabetes mellitus with diabetic neuropathy, with long-term current use of insulin (CMS/HCC) (Primary Dx) 08/21/2024 Telephone [facility] [address] [place] [address] Earlene Beck MD 07/31/2024 Orders Only GENERIC EXTERNAL DATA DEPARTMENT Provider, Generic External Data 07/30/2024 Refill [facility] [address] [facility] [place] [address] Earlene Beck MD Osteoarthritis of multiple joints, unspecified osteoarthritis type; Irritable bowel syndrome with diarrhea 07/10/2024 Telephone [facility] [address] [facility] [place] [address] Marie Reeves MD PCP Contact 07/09/2024 10:15 AM EDT Office Visit [facility] [address] [place] [address] Marie Reeves MD Pre-op evaluation (Primary Dx); Type 2 diabetes mellitus with diabetic neuropathy, with long-term current use of insulin ([facility]) 07/09/2024 Travel from Last 3 Months Immunizations Immunization Administration Dates Next Due DTaP 12/14/2010 Hep [...] Description 09/26/2024 1:00 PM EDT Medication Management [facility] [address] [place] [address] Estela Warren, PharmD [address] [place] [address] Health Maintenance Due Date Last Done Comments [...] Procedure Name Priority Date/Time Associated Diagnosis Comments MR ABDOMEN W AND WO CONTRAST Routine 09/05/2024 4:21 PM EDT POCT GLUCOSE Routine 08/28/2024 10:25 AM EDT Type 2 diabetes mellitus with diabetic neuropathy, with long-term current use of insulin ([facility]) GLUCOSE, WHOLE BLOOD Routine 07/31/2024 12:02 PM EDT ECG 12-LEAD Routine 07/09/2024 1:01 PM EDT Pre-op evaluation CBC WITH AUTO DIFFERENTIAL Routine 07/09/2024 11:17 AM EDT Pre-op evaluation BASIC METABOLIC PANEL Routine 07/09/2024 11:17 AM EDT Pre-op evaluation POCT GLYCATED HEMOGLOBIN, TOTAL Routine 07/09/2024 10:34 AM EDT Type 2 diabetes mellitus with diabetic neuropathy, with long-term current use of insulin (CMS/[facility]) POCT GLUCOSE Routine 07/09/2024 10:33 AM EDT Type 2 diabetes mellitus with diabetic neuropathy, with long-term current use of insulin (CMS/[facility]) LIPID PANEL, STANDARD Routine 04/12/2024 9:12 AM EST Type 2 diabetes mellitus with diabetic neuropathy, with long-term current use of insulin (CMS/HCC) from Last 3 Months or Most Recently Relevant to Health Maintenance Results * MR Abdomen w/ and w/o Contrast (09/05/2024 4:21 PM EDT) Anatomical Region Laterality Modality Abdomen Magnetic Resonan ce 09/05/2024 4:21 PM EDT Narrative 09/06/2024 7:52 AM EDT ? [facility] ?[address] ?[place] [address] ? Magnetic Resonance Report ? Signed ? Patient: Mosqueda,Jesus ?MR#: [id number] ?? [id number] ? : 1965 ?Acct:[id number] ? Age/Sex: 59 / M ?ADM Date: 09/05/24 ? Loc: HO.MRI ? Attending Dr: Elvi CONCEPCION ? Ordering Physician: Elvi Darling ?? Date of Service: 09/05/24 ?? Procedure(s): MR abdomen wo/w con ?? Accession Number(s): [id number] ? cc: Elvi Darling; Earlene Beck MD ? EXAMINATION: ??MR ABDOMEN WITHOUT THEN WITH IV CONTRAST ? HISTORY: R10.9 - Unspecified abdominal pain ? COMPARISON: ??Correlation is made with an unenhanced CT of the abdomen ?? and pelvis dated 10/27/2022. ? TECHNIQUE: Axial in and out of phase T1-weighted gradient echo, axial ?? diffusion weighted, and axial and coronal HASTE T2 with fat saturation ?? images were obtained through the abdomen. Subsequently, fat suppressed ?? axial and coronal T1-weighted images were obtained after the ?? intravenous administration of 7 mL Gadavist. ? FINDINGS: ??There is no significant signal loss within the liver on ?? opposed phase imaging to suggest steatosis. There is a 1.8 cm T2 ?? hyperintense mass in the subcapsular dome of the left lobe which ?? demonstrates intense enhancement on the arterial phase without washout. ?? Findings likely represent a flash filling hemangioma. No additional ?? liver mass is identified. There is no intrahepatic biliary ductal ?? dilatation. The hepatic and portal veins are patent. ? The gallbladder, spleen, and pancreas are unremarkable. The pancreatic ?? duct is normal in caliber. ? The adrenal glands are unremarkable. There is an 8 mm cyst at the upper ?? pole of the right kidney and a 1.6 cm cyst at the lower pole of the ?? left kidney. The stomach is distended with debris. No retroperitoneal ?? lymphadenopathy or ascites is identified in the upper abdomen. There is ?? a tiny left pleural effusion. The visualized bones demonstrate normal ?? marrow signal intensity. ? MR/MR abdomen wo/w con ?? IMPRESSION: ? 1. 1.8 cm probable flash filling hemangioma at the dome of the left ?? lobe of the liver. Follow-up is suggested. ? 2. Bilateral renal cysts as described. ? 3. The stomach is distended with debris. Correlation with the timing of ?? the patient's last meal is recommended. If there is clinical concern ?? for delayed gastric emptying, a nuclear medicine gastric emptying study ?? could be performed. ? 4. Tiny left pleural effusion. ? Electronically signed by: ??Radhames Brown MD ??09/06/2024 07:49 AM EDT ? Dictated By: ?Radhames Brown MD ? Signed By: ?<Electronically signed by Radhames Brown MD in OV> ?09/06/24 0749 ? DD/ 1621 ? TD/TT: 09/05/24 1700 ? Airset Molder: ? Procedure Note Ricardo Moreno - 09/06/[address] [address] Magnetic Resonance Report Signed Patient: Salvatore Mosqueda#: [id number] : 1965Acct:[id number] Age/Sex: 59 / MADM Date: 09/05/24 Loc: HO.MRI Attending Dr: Elvi CONCEPCION Ordering Physician: Elvi Darling Date of Service: 09/05/24 Procedure(s): MR abdomen wo/w con Accession Number(s): [id number] cc: Elvi Darling-Omari; Earlene Beck MD EXAMINATION: MR ABDOMEN WITHOUT THEN WITH IV CONTRAST HISTORY: R10.9 - Unspecified abdominal pain COMPARISON: Correlation is made with an unenhanced CT of the abdomen and pelvis dated 10/27/2022. TECHNIQUE: Axial in and out of phase T1-weighted gradient echo, axial diffusion weighted, and axial and coronal HASTE T2 with fat saturation images were obtained through the abdomen. Subsequently, fat suppressed axial and coronal T1-weighted images were obtained after the intravenous administration of 7 mL Gadavist. FINDINGS: There is no significant signal loss within the liver on opposed phase imaging to suggest steatosis. There is a 1.8 cm T2 hyperintense mass in the subcapsular dome of the left lobe which demonstrates intense enhancement on the arterial phase without washout. Findings likely represent a flash filling hemangioma. No additional liver mass is identified. There is no intrahepatic biliary ductal dilatation. The hepatic and portal veins are patent. The gallbladder, spleen, and pancreas are unremarkable. The pancreatic duct is normal in caliber. The adrenal glands are unremarkable. There is an 8 mm cyst at the upper pole of the right kidney and a 1.6 cm cyst at the lower pole of the left kidney. The stomach is distended with debris. No retroperitoneal lymphadenopathy or ascites is identified in the upper abdomen. There is a tiny left pleural effusion. The visualized bones demonstrate normal marrow signal intensity. MR/MR abdomen wo/w con IMPRESSION: 1. 1.8 cm probable flash filling hemangioma at the dome of the left lobe of the liver. Follow-up is suggested. 2. Bilateral renal cysts as described. 3. The stomach is distended with debris. Correlation with the timing of the patient's last meal is recommended. If there is clinical concern for delayed gastric emptying, a nuclear medicine gastric emptying study could be performed. 4. Tiny left pleural effusion. Electronically signed by: Radhames Brown MD 09/06/2024 07:49 AM EDT Dictated By: Radhames Brown MD Signed By: <Electronically signed by Radhames Brown MD in OV> 09/06/24 0749 DD/ 1621 TD/TT: 09/05/24 1700 Airset Molder: [facility] External Provider IMG MRI PROCEDURES Final Result * (ABNORMAL) POCT Glucose (08/28/2024 10:25 AM EDT) Only the most recent of2 resultswithin the time period is included. Glucose Blood, POC 274(A) 60 - 200 mg/dL QC Media Lot # [id number] Lot# Expiration Date Blood Capillary blood specimen / Unknown 08/28/2024 10:25 AM EDT Result [facility] Earlene Beck MD POINT OF CARE TEST ENTER/EDIT OR DERABLES Final Result * (ABNORMAL) Glucose, Whole Blood (07/31/2024 12:02 PM EDT) [facility] Signature Glucose, Whole Blood 231(H) 60 - 115 mg/dL [facility] Comment:METER #: [id number] 07/31/2024 12:0 2 PM EDT 07/31/2024 12:06 PM EDT Result [facility] Generic External Data Provider LAB BLOOD ORDERAB LES Final Result [facility] [address] [place] [phone] * ECG 12 lead (07/09/2024 1:01 PM EDT) Narrative Marie Reeves MD - 07/09/2024 1:01 PM EDT Heart rate 58 bpm. ??[place] 51 degrees. ??Normal sinus rhythm. ??No sign of left atrial enlargement or right atrial enlargement. ??No sign of hypertrophy. ??No ST elevation or ST depression. Normal ECG. Marie Reeves MD ECG ORDERABLES Final Resul t * (ABNORMAL) CBC auto differential (07/09/2024 11:17 AM EDT) White Blood Count 6.0 4.8 - 10.8 X10*3/uL [facility] Red Blood Count 5.06 4.60 - 5.80 X10*6/uL [facility] Hemoglobin 13.4(L) 14.0 - 18.0 g/dl [facility] Hematocrit 43.4 42.0 - 52.0 % [facility] Mean Corpuscular Volume 85.8 80.0 - 98.0 fL [facility] Mean Corpuscular Hemoglobin 26.5(L) 27.0 - 33.0 pg [facility] Mean Corpuscular HGB Conc 30.9(L) 31.0 - 36.0 g/dl [facility] Red Cell Distribution Width 14.8 11.0 - 16.0 % [facility] Platelet Count 149(L) 160 - 400 X10*3/uL [facility] Mean Platelet Volume 12.8(H) 9.4 - 12.4 fL [facility] Neutrophils Percent Auto 49.3 45 - 73 % [facility] Imm Gran Pct Auto 0.2 0.0 - 0.4 % [facility] Lymphocytes Percent Auto 38.3 20 - 40 % [facility] Monocytes Percent Auto 6.6 2 - 11 % [facility] Eosinophils Percent Auto 4.6(H) 0 - 4 % [facility] Basophils Percent Auto 1.0 0 - 2 % [facility] NRBC Pct Auto 0.0 0.0 - 0.2 /100WBC [facility] Neutrophils Absolute Auto 3.0 2.0 - 8.3 x10*3/uL [facility] Imm Gran Abs Auto 0.01 0.00 - 0.03 X10*3/uL [facility] Lymphocytes Absolute Auto 2.3 1.2 - 4.9 X10*3/uL [facility] Monocytes Absolute Auto 0.4 0.1 - 1.2 X10*3/uL [facility] Eosinophils Absolute Auto 0.3 0.0 - 0.4 X10*3/uL [facility] Basophils Absolute Auto 0.1 0.0 - 0.2 X10*3/uL [facility] NRBC Abs Auto 0.000 0.0 - 0.012 X10*3/uL [facility] Blood Venous blood specimen / Unknown 07/09/2024 11:17 AM EDT 07/09/2024 2:09 PM EDT us Marie Reeves MD LAB BLOOD ORDERABLES Final Result Performing Organization Address [facility]/ZIP Co de Phone Number [facility] [address] [place] [phone] * (ABNORMAL) Basic Metabolic Panel (07/09/2024 11:17 AM EDT) Sodium 143 135 - 145 mmol/L [facility] Potassium 4.2 3.3 - 5.1 mmol/L [facility] Chloride 105 96 - 108 mmol/L [facility] Carbon Dioxide 31(H) 22 - 29 mmol/L [facility] Anion Gap 11(L) 12 - 20 [facility] Urea Nitrogen (BUN) 12 9 - 16 mg/dL [facility] Creatinine, Serum 0.88 0.5 - 1.4 mg/dL [facility] Estimated Glomerular Filt Rate >60 [facility] Comment:Chronic Kidney Disea se: Estimated GFR < 60 mL/min/1.53m4Lbxatb Kidney Disease: Estimated GFR < 15 mL/min/1.73m2 Glucose 224(H) 60 - 115 mg/dL [facility] Calcium 9.2 8.4 - 10.2 mg/dL [facility] Blood Venous blood specimen / Unknown 07/09/2024 11:17 AM EDT 07/09/2024 2:09 PM EDT us Marie Reeves MD LAB BLOOD ORDERABLES Final Result Performing Organization Address City/[facility]/ZIP Co de Phone Number [facility] [address] [place] [phone] * (ABNORMAL) POCT A1C (07/09/2024 10:34 AM EDT) Hemoglobin A1C 10.8(A) 4.0 - 6.0 % QC Media Lot # Comment:[id number] Lot# Expiration Date Comment: Blood 07/09/2024 10:3 4 AM EDT us Marie Reeves MD POINT OF CARE TEST ENTER/ED IT ORDERABLES Final Result * (ABNORMAL) Lipid Panel, Standard (04/12/2024 9:12 AM EST) Triglycerides 54 <150 mg/dL [facility] Comment:Desirable Triglyceri de: less than 150 mg/dLBorderline High Triglyceride 150-199 mg/dLHigh Triglyceride: 200-499 mg/dLVery High Triglyceride: greater than or equal to 5OO mg/dL Cholesterol 98 <200 mg/dL [facility] Comment:Desirable Cholestero l: less than 200 mg/dLBorderline High Cholesterol: 200-239 mg/dLHigh Cholesterol: greater than 239 mg/dL LDL Cholesterol Calculated 55 <100 mg/dL [facility] Comment:Desirable LDL: less than 100 mg/dLNear Optimal/Above Optimal LDL: 110- 129 mg/dLBorderline High LDL: 130-159 mg/dLHigh LDL: 160-189 mg/dLVery High LDL: greater than or equal to 190 mg/dL HDL Cholesterol 33(L) >40 mg/dL [facility] Comment:Desirable HDL: great er than 40 mg/dL Note: This HDL assay may give artificially low results in patients with liver disease. Blood Venous blood specimen / Unknown 04/12/2024 9:12 AM EST 04/12/2024 2:18 PM EST us Earlene Beck MD LAB BLOOD ORDERABLES Final Resul t [facility] [address] [place] [phone] [phone] from Last 3 Months or Most Recently Relevant to Health Maintenance Insurance [facility] ONE CARE < 65 [address] [id number] Care Teams Publishing Systems Analyst Relationship Specialty Start Date End Date Earlene Beck MD [address] [place] [phone] PCP - General Family Medicine 02/26/20
--- OUTSIDE RECORDS SUMMARY | 2024-09-12 13:56 | XMS_ITS | Encounter Summary ---
Author Organization [employer] Address [address] [facility] [address] [place] [address] Care Team Providers Care Mergers And Acquisitions Manager Name Role Phone Earlene Beck MD Primary Care Provider [phone] Encounter Details Date Type Department Care Team (Latest Contact Info) Description 06/08/2020 Abstract [facility] CONVERSIONS Dental, Provider, DDS Social History Tobacco [...] Description 09/26/2024 1:00 PM EDT Medication Management [facility] [address] [place] [address] Estela Warren, PharmD [address] [place] [address] documented as of this encounter Visit Diagnoses Not on filedocumented in this encounter Care Teams Mergers And Acquisitions Manager Relationship Specialty Start Date End Date Earlene Beck MD [address] [place] [address] PCP - General Family Medicine 02/26/20 documented as of this encounter
--- OUTSIDE RECORDS SUMMARY | 2024-09-12 13:56 | XMS_ITS | Encounter Summary ---
Author Organization [employer] Address [address] [facility] [address] [place] [address] Care Team Providers Care Nailer Operator Name Role Phone Earlene Beck MD Primary Care Provider [phone] Encounter Details Date Type Department Care Team (Latest Contact Info) Description 11/09/2018 Abstract [facility] CONVERSIONS Dental, Provider, DDS Social History Tobacco [...] Description 09/26/2024 1:00 PM EDT Medication Management [facility] [address] [place] [address] Estela Warren, PharmD [address] [place] [address] documented as of this encounter Visit Diagnoses Not on filedocumented in this encounter Care Teams Nailer Operator Relationship Specialty Start Date End Date Earlene Beck MD [address] [place] [address] PCP - General Family Medicine 02/26/20 documented as of this encounter
--- OUTSIDE RECORDS SUMMARY | 2024-09-12 13:57 | XMS_ITS | Encounter Summary ---
Author Organization [employer] Address [address] [place] [address] [address] [place] [address] Care Team Providers Care Powder Hand Name Role Phone Earlene Beck MD Primary Care Provider [phone] Reason for Visit * Reason Comments Med Refill Encounter Details Date Type Department Care Team ([facility] Contact Info) Description 01/07/2023 Refill [facility] [address] [place] [address] Marie Reeves MD [address] [place] [address] Osteoarthritis of multiple joints, unspecified osteoarthritis type [...] Description 09/26/2024 1:00 PM EDT Medication Management [facility] [address] [place] [address] Estela Warren, PharmD [address] [place] [address] documented as of this encounter Visit Diagnoses Diagnosis Osteoarthritis of multiple joints, unspecified osteoarthritis type documented in this encounter Care Teams Powder Hand Relationship Specialty Start Date End Date Earlene Beck MD [address] [place] [address] PCP - General Family Medicine 02/26/20 documented as of this encounter
--- OUTSIDE RECORDS SUMMARY | 2024-09-12 13:57 | XMS_ITS | Clinical Summary ---
Author Organization 175 [facility] Address 175 [place] [address] Phone Care Team Providers Care Community Chest Officer Name Role Phone Earlene Beck MD Primary Care Provider [phone] Allergies Active Allergy Reactions Criticality Noted Date Comments Naproxen 03/25/2024 Medications ciclopirox (LOPROX) 0.77 % gel Apply topically 2 (two) times a day. 45 g 08/29/19 Active Problems Problem Noted Date Diagnosed Date Diabetic neuropathy, type II diabetes mellitus ([facility] V24, [facility] V28) 03/18/2024 Long-term insulin use in typ e 2 diabetes ([facility] V24, [facility] V28) 03/18/2024 Seizure ([facility] [place], [facility] V28) 03/18/2024 COPD (chronic obstructive pu lmonary disease) ([facility] [place], [facility] V28) 03/18/2024 Social History Tobacco Use Types [...] Upcoming Encounters Date Type Department Care Team ([facility] st Contact Info) Description 10/10/2024 1:00 PM EDT Office Visit Orthopedic Surgery - [place] [address] [phone] Oracio Smalls, DPGonzález [address] [address] Health Maintenance Due Date Last Done Comments [...] ID:[id number] Group ID:[id number] Type:Not on file Address: [place] [address] [place] [address] Care Teams Community Chest Officer Relationship Specialty Start Date End Date Earlene Beck MD [address] [place] [address] PCP - General 12/27/23
--- OUTSIDE RECORDS SUMMARY | 2024-09-12 13:57 | XMS_ITS | Encounter Summary ---
Author Organization [employer] Address [address] [place] [address] 7 [place] [address] Care Team Providers Care Orthodontic Band Maker Name Role Phone Earlene Beck MD Primary Care Provider [phone] Reason for Visit * Reason Comments Med Refill Encounter Details Date Type Department Care Team ([facility] Contact Info) Description 01/10/2023 Refill [facility] [address] [place] [address] Marie Reeves MD [address] [place] [address] Irritable bowel syndrome with diarrhea Social History [...] Upcoming Encounters Date Type Department Care Team ([facility] Contact Info) Description 09/26/2024 1:00 PM EDT Medication Management [facility] [address] [place] [address] Estela Warren, PharmD [address] [place] [address] documented as of this encounter Visit Diagnoses Diagnosis Irritable bowel syndrome with diarrhea Irritable bowel syndrome documented in this encounter Care Teams Orthodontic Band Maker Relationship Specialty Start Date End Date Earlene Beck MD [address] [place] [address] PCP - General Family Medicine 02/26/20 documented as of this encounter
--- OUTSIDE RECORDS SUMMARY | 2024-09-12 13:57 | XMS_ITS | Data Portability ---
Author Organization [employer] Address [address] [place] [phone] Care Team Providers Care Supervisor Records Change Name Role Phone [facility] Referring Provider [facility] Referring Provider Assessment Encounter Date Assessment Date Assessment LastModified by Organization Details LastModified Time 08/23/2022 08/23/2022 I have reviewed and agree with the Assessment and Plan as documented by the Milk Runner. I provided real-time medical direction via phone [...] [id number] Theodore Yun MD Main - [facility] [address] [place] [phone] 08/23/2022 13:24:48 08/25/2022 11:38:02 Cough [id number] R05.9 Health Concerns Section Related Observation LastModified by Organization Detai ls LastModified Time None Recorded Concern Status LastModified by Organization Details LastModified Time None Recorded Advance Directives Directive None Recorded Payers Insurance Date Sequence Insurance Name Policy Number Policy Ford Covered Member ID Ford Member ID Guarantor Name 06/25/2023 1 [facility] - DOS PRIOR TO 2022 - DUAL ELIGIBLE (MEDICARE REPLACEMENT/AD VANTAGE - HMO) Aravind Floriciano [id number] Aravind Panda 06/25/2023 1 [facility] - DOS ON OR AFTER 2022 - DUAL ELIGIBLE - CORRECTION OPTIONS AND ONE CARE (MEDICARE REPLACEMENT/AD VANTAGE - HMO) Aravind Mosqueda [id number] Aravind Mosqueda Notes Date Note Type Note [...] .................. .................. .................. .................. .................. .................. ............... Milk Runner Note From Jory Yoon: Community Milk Runner Earlene Yoon SC6 [facility] 57 y[facility] C/O a [...] ............... Disposition: Fulfilled Theodore Yun MD [address] [facility],[address], [place], [address], [place] Surphace - frents 08/23/2022 17:10:22
--- OUTSIDE RECORDS SUMMARY | 2024-09-12 13:57 | XMS_ITS | Encounter Summary ---
Author Organization [employer] Address [address] [facility] 7[address] [place] [address] Care Team Providers Care Pbx Mechanic Name Role Phone Earlene Beck MD Primary Care Provider [phone] Encounter Details Date Type Department Care Team ([facility] st Contact Info) Description 04/29/[address] [facility] MED & PEDS [address] [place] [address] ProviderKat MD Social History Tobacco Use Types [...] Description 09/26/2024 1:00 PM EDT Medication Management [facility] MED & PEDS [address] [place] [address] Estela Warren PharmD [address] [place] [address] documented as of this encounter Procedures Procedure Name Priority Date/Time Associated Diagnosis Comments HEMOGLOBIN A1C Routine 04/10/2024 9:26 AM EST documented in this encounter Results * Hemoglobin A1c (04/10/2024 9:26 AM EST) Blood Venous blood specimen / Unknown Historical Provider LAB BLOOD ORDERABLES Yasmeen l Result documented in this encounter Visit Diagnoses Not on filedocumented in this encounter Care Teams Pbx Mechanic Relationship Specialty Start Date End Date Earlene Beck MD [address] [place] [address] PCP - General Family Medicine 02/26/20 documented as of this encounter
== END 2024-09-12 13:43 | disposition home or self-care (01) ==
LOC: HO.HOS 13:20
PROVIDERS: PCP Student in an Organized Health Care Education/Training Program; Visit Provider Orthopaedic Surgery
DX: Z98.890 Other specified postprocedural states (principal)
CPT/HCPCS: 99024

== ENCOUNTER → 2024-09-12 13:20 | Outpatient (BNVA) | payer OTHER, SELFPAY | PROVIDERS: PCP Student in an Organized Health Care Education/Training Program; Visit Provider Orthopaedic Surgery | DX: Z47.89 Encounter for other orthopedic aftercare (principal); Z98.890 Other specified postprocedural states | CPT/HCPCS: 99212 ==

== ENCOUNTER 2024-10-08 08:35 | Outpatient (REF) | payer OTHER, SELFPAY ==
--- OUTSIDE RECORDS SUMMARY | 2024-10-08 08:56 | XMS_ITS | Encounter Summary ---
Author Organization [employer] Address [address] [facility] 7t [place] [address] Care Team Providers Care Trade Show Coordinator Name Role Phone Earlene Beck MD Primary Care Provider [phone] Reason for Visit * Reason Comments Med Refill Encounter Details Date Type Department Care Team ([facility] st Contact Info) Description 08/26/2024 Refill [facility]ED[facility] [address] [place], [place] [phone] Earlene Beck MD 505 [place] [address] Type 2 diabetes mellitus with diabetic polyneuropathy [...] Assessment Author Several days 08/28/2024 10:26 AM oGnzález [place] * Feeling down, depressed, or [...] (CMS/HCC) documented in this encounter Care Teams Trade Show Coordinator Relationship Specialty Start Date End Date Earlene Beck MD [address] [place] [phone] PCP - General Family Medicine 02/26/20 documented as of this encounter
[2024-10-08 14:53] LABS: Alanine Aminotransferase 13 U/L (0-40); Albumin Level 4.2 g/dL (3.5-5.0); Alkaline Phosphatase 55 U/L (39-117); Anion Gap 9 (12-20); Aspartate Amino Transferase 19 U/L (5-37); Bilirubin Direct 0.2 mg/dL (0.0-0.5); Bilirubin Total 0.4 mg/dL (0.0-1.0); Blood Urea Nitrogen 19 mg/dL (9-16); Calcium 9.2 mg/dL (8.4-10.2); Carbon Dioxide 30 mmol/L (22-29); Chloride 107 mmol/L (96-108); Cholesterol 104 mg/dL (<200); Estimated Glomerular Filt Rate > 60; Glucose Random 161 mg/dL (60-115); HDL Cholesterol 36 mg/dL (>40); LDL Cholesterol Calculated 56 mg/dL (<100); Potassium 4.4 mmol/L (3.3-5.1); Sodium 142 mmol/L (135-145); Total Protein 6.3 g/dL (6.5-8.0); Triglycerides 60 mg/dL (<150)
[2024-10-09 08:23] LABS: HIV AB/AG Nonreactive (Nonreactive); HIV Num 1 0.07 S/CO (0.00-0.99); ~HepC Num1 0.91 S/CO (0.00-0.79)
[2024-10-09 10:40] LABS: ~HepC Num2 0.96; ~Hepatitis C Antibody GRAYZONE (Nonreactive)
[2024-10-11 14:43] LABS: HCV Log PCR <1.18 NOT DETECTED Log IU/mL (NOT DETECTED); HepC Viral Load <15 NOT DETECTED IU/mL (NOT DETECTED)
== END 2024-10-08 08:36 | disposition home or self-care (01) ==
LOC: HO.CHCLDS 08:35
PROVIDERS: Visit Provider Student in an Organized Health Care Education/Training Program
DX: E11.40 Type 2 diabetes mellitus with diabetic neuropathy, unspecified (principal); Z79.4 Long term (current) use of insulin; Z11.3 Encounter for screening for infections with a predominantly sexual mode of transmission
CPT/HCPCS: 36415; 80048; 80061; 80076; 86803; 87389; 87522

== ENCOUNTER 2024-10-24 13:27 | Outpatient (AMB) | payer OTHER, SELFPAY ==
--- NOTE | 2024-10-24 13:38 | MHC.OFFVIS ---
Intake Visit Reasons: PO RT RTC 07/31/24 NE Allergies naproxen (From NAPROSYN) Allergy (Mild, Verified 08/22/24 13:51) HIVES HPI HPI PO RT RTC 07/31/24 NE: Details: 10 weeks status post rotator cuff repair. He is doing well with respect to motion but still having pain. Having a hard time sleeping at night. She is doing his physical therapy. [facility] Medical History (Updated 08/22/24 @ 16:53 by CARLENE Campbell) Encounter for preoperative pulmonary examination Dysfunction of right rotator cuff Back pain Takotsubo cardiomyopathy Bilateral shoulder pain Irritable bowel syndrome with diarrhea Periumbilical abdominal pain Diarrhea Preop cardiovascular exam Long-term insulin use in type 2 diabetes Diabetes type 2, uncontrolled Tobacco abuse Sleep apnea Myocardial infarction BPH (benign prostatic hyperplasia) Depression Thrombocytopenia Alcohol abuse Peripheral neuropathy COPD (chronic obstructive pulmonary disease) Seizures Essential hypertension Hyperlipidemia LDL goal <70 Type 2 diabetes mellitus with diabetic polyneuropathy Surgical History (Updated 09/12/24 @ 15:15 by Tomy Vee MD) Status post right rotator cuff repair Status post chest tube placement H/O cardiac catheterization Hx of shoulder surgery History of esophagogastroduodenoscopy (EGD) H/O colonoscopy History of arthroscopic surgery of shoulder Hx of hernia repair Hx of pneumonectomy Hx of knee surgery Family History Father Cancer Diabetes Mother CVD (cardiovascular disease) Social History Household Members: Spouse Alcohol intake: never Patient Tobacco Use Status: Former Tobacco user Tobacco use type: Cigarette Years Smoked: 40 Current occupational status: unemployed Current occupation: Right Handed Physical Exam Extrem Other: /125/S1 neg EC Assessment & Plan Assessment & Plan (1) S/P rotator cuff repair: Code(s): Z98.890 - Other specified postprocedural states Category: Surgical Plan: Status post rotator cuff repair doing well with motion but bad with pain. Continue PT. Last narcotic prescription written today. Follow up 6-8 weeks no more narcotics after that Medications: Refilled oxycodone-acetaminophen 5-325 mg (Percocet) Partial Fill upon patient request. 1 tab PO DAILY PRN 30 tabs 0RF pain (scale score 4-6) Coding Level of Care Code Global (85483) Diagnoses S/P rotator cuff repair Z98.890
--- OUTSIDE RECORDS SUMMARY | 2024-10-24 16:12 | XMS_ITS | Encounter Summary ---
Author Organization [employer] Address [address] [facility] 7t [place] [address] Care Team Providers Care Technical Buyer Name Role Phone Earlene Beck MD Primary Care Provider [phone] Reason for Visit * Reason Comments Med Refill Encounter Details Date Type Department Care Team ([facility] st Contact Info) Description 08/26/2024 Refill [facility] MED & PEDS [address] [place], [place] [phone] Earlene Beck MD [address] [place] [address] Type 2 diabetes mellitus with diabetic polyneuropathy [...] (CMS/HCC) documented in this encounter Care Teams Technical Buyer Relationship Specialty Start Date End Date Earlene Beck MD [address] [place] [address] PCP - General Family Medicine 02/26/20 documented as of this encounter
== END 2024-10-24 14:25 | disposition home or self-care (01) ==
PROVIDERS: PCP Student in an Organized Health Care Education/Training Program; Visit Provider Orthopaedic Surgery
DX: Z98.890 Other specified postprocedural states (principal)
CPT/HCPCS: 99024

== ENCOUNTER → 2024-10-24 13:27 | Outpatient (BNVA) | payer OTHER, SELFPAY | PROVIDERS: PCP Student in an Organized Health Care Education/Training Program; Visit Provider Orthopaedic Surgery | DX: M25.511 Pain in right shoulder (principal); Z98.890 Other specified postprocedural states | CPT/HCPCS: 99212 ==

== ENCOUNTER 2024-11-19 13:57 | Outpatient (RCR) | payer OTHER, SELFPAY ==
--- NOTE | 2024-08-14 09:56 | MHC.PT.EP ---
[facility] [place] Office [place] Office [place] Office [address] Marvin Garcia [address] [phone] F: [phone] F: [phone] F: [phone] F: [phone] Physical Therapy Plan of Care Date of Evaluation: 08/13/24 Date of Surgery: 07/31/24 Diagnosis: pre surgical dx; RIGHT shoulder bursitis, partial thickness RTC tear s/p RTC repair (partial tears supraspinatus/infraspinatus) and sub acromial bursectomy (DOS:07/31/24) Assessment: Aravind is a 59 y.o. Kinyarwanda speaking make whom is accompanied by his who is referred to PT by Dr. Tomy Vee MD with pre surgical diagnosis of RIGHT shoulder bursitis, partial thickness RTC tear. Is now s/p RTC repair (partial tears supraspinatus/infraspinatus) and sub acromial bursectomy (DOS:07/31/24). Patient impairments include pain, healing incision sites, limited ROM, weakness in shoulder due to surgery. Patient current functional limitations are difficulty with dressing, bathing, cooking, cleaning. Patient will benefit from skilled PT to address aforementioned impairments and functional limitations to meet established goals. Frequency and Duration: The patient will be seen 2x/week for 6 weeks Short Term Goals: 3 weeks Patient demonstrates consistency and independence with HEP to self manage symptoms. Pt is consistent with precautions and sling use. 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 Pt presents with increased R shoulder ER PROM 70 degrees to improve ability to don/doff clothes. Treatment Plan: Modalities to reduce pain, spasms and effusion. Manual therapy to restore motion and function. Therapeutic exercise to improve strength and flexibility. Neuromuscular re-education for posture and balance. Therapeutic activities to return to functional activities of daily living. Electronically signed by: Nena Diamond, PT, DPT Please sign and return to therapist. Thank you for your referral.
--- NOTE | 2025-01-02 15:48 | MHC.PT.DC ---
[facility] [place] Office [place] Office [place] Office [address] Marvin Garcia [address] [phone] F: [phone] F: [phone] F: [phone] F: [phone] Physical Therapy Discharge Report Diagnosis: pre surgical dx; RIGHT shoulder bursitis, partial thickness RTC tear s/p RTC repair (partial tears supraspinatus/infraspinatus) and sub acromial bursectomy (DOS:07/31/24) Date of Surgery: 07/31/24 Date of Evaluation: 08/13/24 Date of Discharge: 01/02/25 Treatments to Date: 15 Cancellations to Date: 7 No Shows to Date: 4 Discharge Status: Achieved Goals Improved Function Independent with HEP Discharge Summary: Aravind was last treated in PT on 11/19/24 and the assessment reads, Aravind needs minor cues for form to maintain GHJ neutral when performing most exercises. Also cues to perform exercises slowly, with control. He does not have pain with any exercises and does not c/o fatigue end of session showing improved endurance and activity tolerance. Plan for 2 remaining visits then discharge. Aravind did not show to his last 2 sessions and is therefore discharged from PT at this time. Electronically signed by: Nena Diamond, PT, DPT Please sign and return to therapist. Thank you for your referral.
== END 2025-01-02 15:49 | disposition home or self-care (01) ==
LOC: HO.PT 13:57
PROVIDERS: PCP Student in an Organized Health Care Education/Training Program; Visit Provider Physician Assistant
DX: M75.101 Unspecified rotator cuff tear or rupture of right shoulder, not specified as traumatic (principal); Z98.890 Other specified postprocedural states
CPT/HCPCS: 97110; 97140; 97162; 97530; 97535

== ENCOUNTER 2024-12-05 13:47 | Outpatient (AMB) | payer OTHER, SELFPAY ==
--- NOTE | 2024-12-05 13:53 | A.OFFVIS_ITS ---
Intake Visit Reasons: OV RT RTC 07/31/24 NE Intake Note: Aravind is a 59 year old right hand dominant male who presents today for a follow up of his right shoulder s/p Right RTC Repair 07/31/24. At his last appointment he was given his Last RX for pain as well as a order for PT Allergies naproxen (From NAPROSYN) Allergy (Mild, Verified 08/22/24 13:51) HIVES HPI HPI OV RT RTC 07/31/24 NE: Details: Aravind is a 59 year old right hand dominant male who presents today for a follow up of his right shoulder s/p Right RTC Repair 07/31/24. At his last appointment he was given his Last RX for pain as well as a order for PT. He is doing well and has good motion and minimal pain. His primary complaint is forward 5 months of right knee pain. He describes pain in the medial and lateral joint line without injury. He denies locking. COUNT INCLUDES [facility] Medical History Encounter for preoperative pulmonary examination Dysfunction of right rotator cuff Back pain Takotsubo cardiomyopathy Bilateral shoulder pain Irritable bowel syndrome with diarrhea Periumbilical abdominal pain Diarrhea Preop cardiovascular exam Long-term insulin use in type 2 diabetes Diabetes type 2, uncontrolled Tobacco abuse Sleep apnea Myocardial infarction BPH (benign prostatic hyperplasia) Depression Thrombocytopenia Alcohol abuse Peripheral neuropathy COPD (chronic obstructive pulmonary disease) Seizures Essential hypertension Hyperlipidemia LDL goal <70 Type 2 diabetes mellitus with diabetic polyneuropathy Surgical History Status post right rotator cuff repair Status post chest tube placement H/O cardiac catheterization Hx of shoulder surgery History of esophagogastroduodenoscopy (EGD) H/O colonoscopy History of arthroscopic surgery of shoulder Hx of hernia repair Hx of pneumonectomy Hx of knee surgery Family History Father Cancer Diabetes Mother CVD (cardiovascular disease) Social History Household Members: Spouse Alcohol intake: never Patient Tobacco Use Status: Former Tobacco user Tobacco use type: Cigarette Years Smoked: 40 Current occupational status: unemployed Current occupation: Right Handed Physical Exam Extrem Other: Right shoulder: 45/90/140/L5 Negative empty can Negative Gallego and Neer Right knee with no effusion. 0-130 degrees of motion. Tenderness to palpation medial joint line. Negative [facility] Procedures Joint Inj/Aspir; Non-Pain Clin Joint Injection/Drain Details: Injected 1 mL of Decadron and 3 mL 1% lidocaine and 3 mL of 0.25% Marcaine. Site was prepped using aseptic technique. Patient tolerated the procedure well. Shoulders, Hips, Knees, Knee Large Joint Injection : Right Knee Coding Procedure code (CPT) selection complete Assessment & Plan Assessment & Plan (1) S/P rotator cuff repair: Code(s): Z98.890 - Other specified postprocedural states Category: Surgical Plan: Doing well status post rotator cuff repair. Continue home exercise program. No further intervention warranted. (2) Patellofemoral pain syndrome of right knee: Code(s): M22.2X1 - Patellofemoral disorders, right knee Category: Medical Plan: Right knee osteoarthritis. I injected his right knee. I have warned her of the hyperglycemic effects of steroids. (3) Diabetes type 2, uncontrolled: Code(s): E11.65 - Type 2 diabetes mellitus with hyperglycemia Category: Medical Qualifiers: Glycemic state: with hyperglycemia Qualified Code(s): E11.65 - Type 2 diabetes mellitus with hyperglycemia Plan: Hyperglycemic effects of steroids discussed Coding Level of Care Code Est Pt Level 4 (68491) Diagnoses S/P rotator cuff repair Z98.890 Patellofemoral pain syndrome of right knee M22.2X1 Uncontrolled type 2 diabetes mellitus with hyperglycemia E11.65 Glycemic state: with hyperglycemia CPT Codes Shoulders, Hips, Knees, - Knee Large Joint Injection : Right Knee ([id number])
--- OUTSIDE RECORDS SUMMARY | 2024-12-05 13:53 | XMS_ITS | Encounter Summary ---
Author Organization [employer] Address [address] [facility] 7t [place] [address] Care Team Providers Care Abstract Maker Name Role Phone Earlene Beck MD Primary Care Provider [phone] Reason for Visit * Reason Comments Med Refill Encounter Details Date Type Department Care Team ([facility] st Contact Info) Description 08/26/2024 Refill [facility] MED & PEDS 505 [place], [place] [phone] Earlene Beck MD 505 [place] [address] Type 2 diabetes mellitus with diabetic polyneuropathy [...] Care Team (Late st Contact Info) Description 01/02/2025 11:00 AM EDT Office Visit [facility] MED & PEDS 505 [place] [address] Earlene Beck MD 505 [place] [address] documented as of this encounter Visit Diagnoses Diagnosis Type 2 diabetes mellitus with diabetic polyneuropathy (CMS/HCC) documented in this encounter Care Teams Abstract Maker Relationship Specialty Start Date End Date Earlene Beck MD [address] [place] [address] PCP - General Family Medicine 02/26/20 documented as of this encounter
--- OUTSIDE RECORDS SUMMARY | 2024-12-05 13:53 | XMS_ITS | Clinical Summary ---
Author Organization 175 [facility] Address [address] [place] [address] Phone Care Team Providers Care Reporting Lead Name Role Phone Earlene Beck MD Primary Care Provider [phone] Allergies Active Allergy Reactions Criticality Noted Date Comments Naproxen 03/25/2024 Active Problems Problem Noted Date Diagnosed Date Diabetic neuropathy, type II diabetes mellitus ([facility]24, [facility] V28) 03/18/2024 Long-term insulin use in typ e 2 diabetes ([facility] V24, [facility] V28) 03/18/2024 Seizure ([facility]24, [facility] V28) 03/18/2024 COPD (chronic obstructive pu lmonary disease) ([facility] V24, [facility] V28) 03/18/2024 Encounters Date Type Department Care Team Description 10/10/2024 1:00 PM EDT Office Visit Orthopedic Surgery - [place] [address] [phone] Oracio Smalls, DPM Dermatophytosis of nail (Primary Dx); Diabetic mononeuropathy simplex ([facility] V24, [facility] V28); Tinea pedis of both feet from [...] Care Team (Late st Contact Info) Description 01/13/2025 1:15 PM EDT Office Visit Orthopedic Surgery - [place] [address] [phone] Oracio Smalls, DPM [address] [address] Health Maintenance Due Date Last Done Comments Diabetes: Annual Foot Exam 1975 Diabetes: Annual Retina Eye Exam 1975 Hepatitis A Vaccines (1 of 2 - Risk 2-dose series) 1984 Colorectal Cancer Screening: Colonoscopy 02/13/2024 Medicare Annual Wellness Visit 02/13/2024 Social Influencers of Health Screening 02/13/2024 Diabetes: Annual Urine Albumin-Creatinine Ratio (uACR) 03/19/2024 Depression Screening 05/01/2024 Influenza Vaccine (#1) 2024 , 02/08/2023, 02/24/2022, Additional history exists Diabetes: Blood Sugar Control Test (HGBA1C) 01/09/2025 07/09/2024, 04/10/2024, 02/26/2024 Diabetes: Annual GFR (Glomerular Filtration Rate) 10/08/2025 10/08/2024, 04/12/2024 Cholesterol Screening (Lipid Panel) 10/08/2029 10/08/2024, 04/12/2024, 06/28/2023 DTaP,Tdap,and Td Vaccines (5 - Td or Tdap) 02/25/2032 02/24/2022, 12/14/2010, 12/14/2010, Additional history exists RSV Immunization Adult Patients (1 - 1-dose 75+ series) 2040 MMR Vaccines Aged Out 01/29/2018, 02/10/1998 No lo nger eligible based on patient's age to complete this topic Hepatitis B Vaccines Completed 09/12/2018, 01/29/2018, 01/01/2013 Zoster Vaccines Completed 04/11/2019, 02/08/2019 COVID-19 Vaccine Completed 03/04/2024, 03/2021, 08/31/2020, Additional history exists Pneumococcal Vaccine: 50+ Years Completed 04/11/2024, 01/12/2017, 01/21/2009, Additional history exists HIV Screening Completed 10/08/2024 Hepatitis C Screening Completed 10/08/2024 HIB Vaccines Aged Out No longer eligi [...] patient's age to complete this topic Insurance [facility] MEDICARE Member Subscriber Plan / Payer (Ef fective 2016-Present) Name:PEYTON SALDAÑA Relation to Subscriber:Self Name:Peyton Saldaña Payer ID:[id number] Group ID:[id number] Type:Not on file Address: [facility] [place] [id number] Care Teams Reporting Lead Relationship Specialty Start Date End Date Earlene Beck MD [address] [place] [address] PCP - General 12/27/23
== END 2024-12-05 14:38 | disposition home or self-care (01) ==
LOC: HO.HOS 13:48
PROVIDERS: PCP Student in an Organized Health Care Education/Training Program; Visit Provider Orthopaedic Surgery
DX: M22.2X1 Patellofemoral disorders, right knee (principal); Z98.890 Other specified postprocedural states; E11.65 Type 2 diabetes mellitus with hyperglycemia
CPT/HCPCS: 20610; 99214

== ENCOUNTER → 2024-12-05 13:47 | Outpatient (BNVA) | payer OTHER, SELFPAY | PROVIDERS: PCP Student in an Organized Health Care Education/Training Program; Visit Provider Orthopaedic Surgery | DX: M25.511 Pain in right shoulder (principal); M22.2X1 Patellofemoral disorders, right knee; Z98.890 Other specified postprocedural states; E11.65 Type 2 diabetes mellitus with hyperglycemia | CPT/HCPCS: 20610; 99212; J0665; J1100; J2003 ==

== ENCOUNTER 2024-12-19 13:31 | Outpatient (AMB) | payer OTHER, SELFPAY ==
--- NOTE | 2024-12-19 13:34 | MHC.OFFVIS ---
Vital Signs 12/19/24 13:36 Height 5 ft 9 in Weight 150 lb BMI 22.1 BP 124/84 Blood Pressure Location Rt brachial Position Sitting Pulse 74 Pulse Source Pulse Oximeter Pulse Oximetry (%) 99 Oxygen Delivery Method Room Air Intake Visit Reasons: right flank pain, GERD Intake Note: Est pt for mgmt of GERD + chronic pain. Review imaging results. CC: C.O. persistence of RUQ pain despite current therapy. Pt denies any additional sx or concerns at this time. Tractor Technician Required: Yes Tractor Technician Services: Tractor Technician Present Tractor Technician Name: [facility] Keyanna Seo [id number] Accompanied by: Self / Same As Patient Allergies naproxen (From NAPROSYN) Allergy (Mild, Verified 12/19/24 13:34) HIVES HPI HPI right flank pain, GERD: Details: Assessment & Plan (1) Right flank pain: Code(s): R10.9 - Unspecified abdominal pain Category: Medical (2) GERD (gastroesophageal reflux disease): Code(s): K21.9 - Gastro-esophageal reflux disease without esophagitis Category: Medical (3) Dilated aortic root: Code(s): I77.810 - Thoracic aortic ectasia Category: Medical (4) Cardiomyopathy: Code(s): I42.9 - Cardiomyopathy, unspecified Category: Medical Plan FAROESE #Vickie LIve He is accompanied by his who is supportive and helpful with the history. He has not seen me since 2022! However he still has pain in the right flank to upper abdomen area that is unexplained. There was not any smoking gun on the thoracic and lumbar spine x-ray but also he has had a completely negative GI workup. Given the persistence of this problem I will try to get an MRI of the area to see if this provides us with any further information. The pain has not responded to Bentyl so I them uncertain that it is bowel spasm. Of course, x-ray does not rule out other musculoskeletal so causes. He has not had any lab abnormalities that seem to suggest pancreatitis or other unusual condition. I have even done inflammatory marker workup to see if we should suspect any rheumatologic causes but this was also negative. He had a negative upper endoscopy in 2019 that is been lost to record because it was in [facility], a negative colonoscopy in the same year that should be repeated in 5 years. Upon physical exam and his pain is provoked with all aspects of his LS movement and he is very limited in ROM in all aspects. He does have other musculoskeletal issues including severe degenerative arthritis of the shoulders. Other contributing comorbid conditions could be his cardiac status, his severe COPD with history of pneumothorax (although this was on the left side), and a history of heavy alcohol abuse. It appears that his transaminases are relatively normal so it maybe that he has stopped drinking. He had a recent chest CT showing trace pericardial effusion and tracheal megaly of uncertain significance to his pain complaint. He has had a couple of negative CAT scans and ultrasounds failing to show any reason for the pain. He continues on esomeprazole in the morning and famotidine at night. Return office visit in 4 months and hopefully by then will have an MRI. 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 There is a 1.8 cm T2 hyperintense mass in the subcapsular dome of the left lobe which demonstrates intense enhancement on the arterial phase without washout. Findings likely represent a flash filling hemangioma. No additional liver mass is identified. There is no intrahepatic biliary ductal dilatation. The hepatic and portal veins are patent. The gallbladder, spleen, and pancreas are unremarkable. The pancreatic duct is normal in caliber. The adrenal glands are unremarkable. There is an 8 mm cyst at the upper pole of the right kidney and a 1.6 cm cyst at the lower pole of the left kidney. The stomach is distended with debris. No retroperitoneal lymphadenopathy or ascites is identified in the upper abdomen. There is a tiny left pleural effusion. The visualized bones demonstrate normal marrow signal intensity. MR/MR abdomen wo/w con IMPRESSION: 1. 1.8 cm probable flash filling hemangioma at the dome of the left lobe of the liver. Follow-up is suggested. 2. Bilateral renal cysts as described. 3. The stomach is distended with debris. Correlation with the timing of the patient's last meal is recommended. If there is clinical concern for delayed gastric emptying, a nuclear medicine gastric emptying study could be performed. 4. Tiny left pleural effusion. TODAY'S VISIT [facility] Medical History Encounter for preoperative pulmonary examination Dysfunction of right rotator cuff Back pain Takotsubo cardiomyopathy Bilateral shoulder pain Irritable bowel syndrome with diarrhea Periumbilical abdominal pain Diarrhea Preop cardiovascular exam Long-term insulin use in type 2 diabetes Diabetes type 2, uncontrolled Tobacco abuse Sleep apnea Myocardial infarction BPH (benign prostatic hyperplasia) Depression Thrombocytopenia Alcohol abuse Peripheral neuropathy COPD (chronic obstructive pulmonary disease) Seizures Essential hypertension Hyperlipidemia LDL goal <70 Type 2 diabetes mellitus with diabetic polyneuropathy Surgical History Status post right rotator cuff repair Status post chest tube placement H/O cardiac catheterization Hx of shoulder surgery History of esophagogastroduodenoscopy (EGD) H/O colonoscopy History of arthroscopic surgery of shoulder Hx of hernia repair Hx of pneumonectomy Hx of knee surgery Family History Father Cancer Diabetes Mother CVD (cardiovascular disease) Social History Household Members: Spouse Alcohol intake: never Patient Tobacco Use Status: Former Tobacco user Tobacco use type: Cigarette Years Smoked: 40 Current occupational status: unemployed Current occupation: Right Handed Review of Systems Const Denies fatigue, Denies fever(s), Denies night sweats, Denies poor appetite and Denies weight loss Eyes Details: GLASSES Reports requires corrective lenses ENT Reports Normal hearing present, Denies dental pain, Denies dysphagia, Denies hearing loss, Denies mouth pain, Denies odynophagia, Denies throat swelling, Denies tongue swelling and Reports other (Dentition adequate) Card Reports no additional complaints Resp Reports no additional complaints GI Details: Reports abdominal pain, Denies melena, Denies bloating, Denies hematochezia, Denies constipation, Denies GI cramping, Denies dysphagia, Denies excessive flatus, Reports early satiety, Denies heartburn, Denies diarrhea, Denies nausea, Denies odynophagia, Denies vomiting and Denies hematemesis Skin/Breast Denies pruritus, Denies lesions, Denies rash and Denies jaundice Neuro Reports Normal hearing present and Denies Abnormal speech present Endo Denies fatigue Aller/Immun Denies throat swelling and Denies tongue swelling Physical Exam Vital Signs: Last Vital Signs Pulse 74 12/19/24 13:36 BP 124/84 12/19/24 13:36 Pulse Ox 99 12/19/24 13:36 Oxygen Delivery Method Room Air 12/19/24 13:36 BMI result Body Mass Index 22.1 Const General: cooperative, no acute distress, well developed and well groomed Nutritional Appearance: well nourished and thin Orientation/consciousness: oriented to person, oriented to place and oriented to time Limitations: language barrier HEENT Head: Yes normocephalic and Yes atraumatic Eyes General: appearance normal, both eyes and all related structures Pupils: Equal, round and reactive pupils present Neck Neck: Yes normal visual inspection and Yes no lymphadenopathy Thyroid: Thyroid normal Resp Effort & Inspection: normal respiratory effort and able to speak in complete sentences Auscultation: clear to auscultation bilaterally Cardio Rate: regular rate Rhythm: regular rhythm Heart sounds: Normal, physiologic split S2 sound present Peripheral pulses: radial pulses present and posterior tibial pulses present GI Inspection: No distended and No Abdominal panniculus present Palpation (GI): Soft to palpation, Tenderness to palpation present (GI) in the RUQ, no guarding, not rigid and No hepatosplenomegaly present Percussion: Yes normal to percussion Auscultation: normal bowel sounds Rectal Exam - Male: Yes deferred Skin General skin exam: no rashes or lesions noted, turgor normal, skin not dry, no jaundice, No spider nevi and no striae Rashes: no rashes Nails: normal Neuro General: oriented to person, oriented to place and oriented to time Cranial nerves: Yes Equal, round and reactive pupils present and Yes Normal hearing present Speech: No Abnormal speech present Extrem Other: insulin sensor rt upper arm General: Yes normal to inspection, No clubbing, No cyanosis and No edema Psych Appearance: grossly normal and well kempt Mental Status: mental status grossly normal Speech and movement: Normal speech and movement present Affect: normal affect Attitude: cooperative Thought process: Circumstantial thought process present and not confabulating Thought content: Normal thought content present Insight: Limited insight present (Psych) Judgement: Limited judgement present (Psych) Results Reviewed Results Reviewed: MRI OF THE ABDOMEN 09/06/2024 FINDINGS: There is no significant signal loss within the liver on opposed phase imaging to suggest steatosis. There is a 1.8 cm T2 hyperintense mass in the subcapsular dome of the left lobe which demonstrates intense enhancement on the arterial phase without washout. Findings likely represent a flash filling hemangioma. No additional liver mass is identified. There is no intrahepatic biliary ductal dilatation. The hepatic and portal veins are patent. The gallbladder, spleen, and pancreas are unremarkable. The pancreatic duct is normal in caliber. The adrenal glands are unremarkable. There is an 8 mm cyst at the upper pole of the right kidney and a 1.6 cm cyst at the lower pole of the left kidney. The stomach is distended with debris. No retroperitoneal lymphadenopathy or ascites is identified in the upper abdomen. There is a tiny left pleural effusion. The visualized bones demonstrate normal marrow signal intensity. MR/MR abdomen wo/w con IMPRESSION: 1. 1.8 cm probable flash filling hemangioma at the dome of the left lobe of the liver. Follow-up is suggested. 2. Bilateral renal cysts as described. 3. The stomach is distended with debris. Correlation with the timing of the patient's last meal is recommended. If there is clinical concern for delayed gastric emptying, a nuclear medicine gastric emptying study could be performed. 4. Tiny left pleural effusion. Assessment & Plan Assessment & Plan (1) Right flank pain: Code(s): R10.9 - Unspecified abdominal pain Category: Medical (2) GERD (gastroesophageal reflux disease): Code(s): K21.9 - Gastro-esophageal reflux disease without esophagitis Category: Medical (3) Diabetes type 2, uncontrolled: Code(s): E11.65 - Type 2 diabetes mellitus with hyperglycemia Category: Medical Qualifiers: Glycemic state: with hyperglycemia Qualified Code(s): E11.65 - Type 2 diabetes mellitus with hyperglycemia (4) Gastroparesis: Code(s): K31.84 - Gastroparesis Category: Medical (5) Type 2 diabetes mellitus with diabetic polyneuropathy: Code(s): E11.42 - Type 2 diabetes mellitus with diabetic polyneuropathy Category: Medical Qualifiers: Diabetes mellitus 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 - He reports a sensation of abdominal fullness and rapid satiety with minimal food intake. - Pain is notably worsened when in a supine position or lying on his side. - He denies additional gastrointestinal symptoms such as bloating or nausea. - Known history of Type 2 Diabetes Mellitus with previous uncontrolled levels (A1c 9.6 as of January 2024). - Recent improvements in glucose levels noted with a current reading of 150 mg/dL since starting a glucose sensor. (the patient has had an extensive workup for his pain that as it included prior to this appointment: In 2019 a negative colonoscopy screening, negative H pylori testing, an abdominal CT and abdominal MRI showing only hepatic steatosis and hemangioma along with a large volume of food in the stomach and trace pleural effusion, unremarkable x-rays of the thoracic and lumbar spine, unremarkable lab work for any sort of inflammatory/rheumatologic disease that could be contributing to the pain, and the pain has not been affected by dicyclomine. Patient has comorbid Takatsobo cardiomyopathy that resolve normal ejection fraction, COPD, poorly controlled diabetes) PLAN - Start medication for suspected diabetic gastroparesis, administering at low doses. - Arrange for a gastric emptying study with instructions on withholding medication prior to the test. - Obtain updated blood work to evaluate diabetes control. - Follow-up in three weeks to evaluate treatment efficacy. Patient was informed and verbally consented to the use of an ambient scribe for clinic note documentation during this visit. 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
[2024-12-19 13:36] VITALS: BP 124/84; PULSE 74; O2SAT 99; BMI 22.1
--- OUTSIDE RECORDS SUMMARY | 2024-12-19 13:42 | XMS_ITS | Clinical Summary ---
Author Organization [address] [facility] Address [address] [place] [address] Phone Care Team Providers Care Internet Sales Consultant Name Role Phone Earlene Beck MD Primary Care Provider [phone] Allergies Active Allergy Reactions Criticality Noted Date Comments Naproxen 03/25/2024 Active Problems Problem Noted Date Diagnosed Date Diabetic neuropathy, type II diabetes mellitus [place] [facility] 03/18/2024 Long-term insulin use in typ e 2 diabetes [place] [place] [facility] [place] 03/18/2024 Seizure [place] [place] [facility] [place] 03/18/2024 COPD (chronic obstructive pu lmonary disease) [place] [place] [place] [facility] [place] 03/18/2024 Encounters Date Type Department Care Team Description 10/10/2024 1:00 PM EDT Office Visit Orthopedic Surgery - [place] [address] [address] Oracio Smalls, DPM Dermatophytosis of nail (Primary Dx); Diabetic mononeuropathy simplex [place] [place] [facility] Tinea pedis of both feet from [...] PM EDT Office Visit Orthopedic Surgery - [place] [address] [phone] Oracio Smalls, DPM [address] [address] Health Maintenance Due Date Last Done Comments [...] patient's age to complete this topic Insurance [facility] MEDICARE Member Subscriber Plan / Payer (Ef fective 2016-Present) Name:PEYTON SALDAÑA Relation to Subscriber:Self Name:Peyton Saldaña Payer ID:[id number] Group ID:[id number] Type:Not on file Address: [place] [facility] [place] [id number] Care Teams Internet Sales Consultant Relationship Specialty Start Date End Date Earlene Beck MD [address] [place] [id number] PCP - General 12/27/23
--- OUTSIDE RECORDS SUMMARY | 2024-12-19 13:42 | XMS_ITS | Encounter Summary ---
Author Organization [employer] Address [address] [facility] [address] [place] [address] Care Team Providers Care Buggy Ladle Tender Name Role Phone Earlene Beck MD Primary Care Provider [phone] Reason for Visit * Reason Comments Med Refill Encounter Details Date Type Department Care Team ([facility] st Contact Info) Description 08/26/[address] [facility] [address] [place], [place] [phone] Earlene Beck MD [address] [place] [address] Type 2 diabetes mellitus with diabetic polyneuropathy [...] Description 01/02/2025 11:00 AM EDT Office Visit [facility] [address] [place] [address] Earlene Beck MD [address] [place] [address] documented as of this encounter Visit Diagnoses Diagnosis Type 2 diabetes mellitus with diabetic polyneuropathy (CMS/HCC) documented in this encounter Care Teams Buggy Ladle Tender Relationship Specialty Start Date End Date Earlene Beck MD [address] [place] [id number] PCP - General Family Medicine 02/26/20 documented as of this encounter
== END 2024-12-19 13:55 | disposition home or self-care (01) ==
LOC: HO.HGI 13:32
PROVIDERS: PCP Student in an Organized Health Care Education/Training Program; Visit Provider Nurse Practitioner
DX: R10.9 Unspecified abdominal pain (principal); K21.9 Gastro-esophageal reflux disease without esophagitis; E11.65 Type 2 diabetes mellitus with hyperglycemia; K31.84 Gastroparesis; E11.42 Type 2 diabetes mellitus with diabetic polyneuropathy; Z79.4 Long term (current) use of insulin
CPT/HCPCS: 99214

== ENCOUNTER 2024-12-19 13:31 | Outpatient (REF) | payer OTHER, SELFPAY ==
[2024-12-19 15:06] LABS: Hemoglobin A1C 252.9210 umol/L; Total Hemoglobin (HGBA1C) 3779.5664 umol/L
== END 2024-12-19 13:32 | disposition home or self-care (01) ==
LOC: HO.LAB 13:31
PROVIDERS: PCP Student in an Organized Health Care Education/Training Program; Visit Provider Nurse Practitioner
DX: K21.9 Gastro-esophageal reflux disease without esophagitis (principal); E11.43 Type 2 diabetes mellitus with diabetic autonomic (poly)neuropathy; E11.65 Type 2 diabetes mellitus with hyperglycemia; K31.84 Gastroparesis; R10.11 Right upper quadrant pain; Z79.4 Long term (current) use of insulin
CPT/HCPCS: 36415; 83036; 99212

== ENCOUNTER 2024-12-31 13:15 | Outpatient (AMB) | payer OTHER, SELFPAY ==
--- NOTE | 2024-12-31 13:19 | MHC.OFFVIS ---
Vital Signs 12/31/24 13:21 Height 5 ft 9 in Weight 150 lb BMI 22.1 Intake Visit Reasons: New prob LT RF trigger Intake Note: Aravind is a 59 year old right hand dominant male who presents today for a new problem visit for his left ring finger. States his finger is locking mainly at night time and in the mornings. States its painful to pull his finger staight up again. States he would like to have trigger release surgery as he has hx of left middle finger A1 johnna release, DOS: 06/19/[address] Esquivel. States his sugars are well controlled. Last A1C 8.3 done on 12/19/24. Search Engine Marketing Strategist Name: Saloni FERNANDEZ/KATJA Allergies naproxen (From NAPROSYN) Allergy (Mild, Verified 12/31/24 13:24) HIVES HPI HPI New prob LT RF trigger : Details: Aravind is a 59 year old right hand dominant Diabetic Swedish speaking man who returns with complaints of left ring finger locking. They complains of painful locking & catching of his left ring finger. They has a Hx of a left middle trigger finger release, DOS: 06/19/24, with good relief & no complaints They denies any numbness today in clinic and says their sensation is normal today. They have a Hx of DM, DC, COPD, smoking, ETOH abuse, & Depression. Last HgA1c was 8.3% on 12/19/24 [facility] Medical History Encounter for preoperative pulmonary examination Dysfunction of right rotator cuff Back pain Takotsubo cardiomyopathy Bilateral shoulder pain Irritable bowel syndrome with diarrhea Periumbilical abdominal pain Diarrhea Preop cardiovascular exam Long-term insulin use in type 2 diabetes Diabetes type 2, uncontrolled Tobacco abuse Sleep apnea Myocardial infarction BPH (benign prostatic hyperplasia) Depression Thrombocytopenia Alcohol abuse Peripheral neuropathy COPD (chronic obstructive pulmonary disease) Seizures Essential hypertension Hyperlipidemia LDL goal <70 Type 2 diabetes mellitus with diabetic polyneuropathy Surgical History Status post right rotator cuff repair Status post chest tube placement H/O cardiac catheterization Hx of shoulder surgery History of esophagogastroduodenoscopy (EGD) H/O colonoscopy History of arthroscopic surgery of shoulder Hx of hernia repair Hx of pneumonectomy Hx of knee surgery Family History Father Cancer Diabetes Mother CVD (cardiovascular disease) Social History Household Members: Spouse Alcohol intake: never Patient Tobacco Use Status: Former Tobacco user Tobacco use type: Cigarette Years Smoked: 40 Current occupational status: unemployed Current occupation: Right Handed Review of Systems Const All systems reviewed & are unremarkable except as noted in HPI and below Physical Exam Vital Signs: BMI result Body Mass Index 22.1 Const General: no acute distress and alert Orientation/consciousness: patient oriented x3 Neuro General: patient oriented x3 Extrem Other: Evaluation of Left Upper Extremity: The patient is alert, oriented, and in no acute distress Neuro: Median, Ulnar, Radial nerves motor and sensory intact and sensation is normal to the tips of all digits Vascular: Cap refill brisk ROM: He can make a fist and extend all his digits No locking or catching of the ring finger seen today Tender over the ring finger a1 johnna Psych Appearance: grossly normal Affect: normal affect Attitude: cooperative Office Procedures AMB Fracture Care Details: No fracture, injection Fracture Billing Code: Fracture Billing Code Assessment & Plan Assessment & Plan (1) Trigger finger, left ring finger: Code(s): M65.342 - Trigger finger, left ring finger Category: Medical (2) Diabetes mellitus: Code(s): E11.9 - Type 2 diabetes mellitus without complications Category: Medical Plan Assessment & Plan: 1. Left ring finger trigger finger No locking or catching seen in clinic, tender over the a1 johnna I educated them about this condition I discussed operative and non-operative treatment options The patient would like to proceed with surgery, however is HGA1c was 8.3% on 12/19/24 which is too high to proceed with surgery at this time I recommend a steroid injection & Diabetes management, and he is in agreement They will need an updated HgA1c that is <8.1% in order to proceed with surgery, and they expressed understanding Injection #1: The risks and benefits of a steroid injection including but not limited to risk of damage to blood vessels, nerves, tendons, infection, skin bleaching, failure to improve symptoms, increased pain, and possible need for further injections or other intervention were discussed with the patient and the patient wishes to proceed with the steroid injection. Once consent was obtained, I sterilely prepped the area over the A1 johnna of the flexor tendon sheath of the Left ring. I then injected the flexor tendon sheath with a combination of 1 mL of dexamethasone (4mg/ml), and 1% lidocaine. The patient tolerated the procedure well with no complications. If the patient continues to have locking and catching 4-6 weeks following this injection, they may call to schedule appointment to discuss alternative treatment options 2. Left middle finger trigger finger, S/P release DOS: 06/19/24 Resolved Scribed for Shireen Esquivel MD by Juan Khanna, medical research scientist, on 12/31/24 at 1:40 PM, EST. Coding Level of Care Code Est Pt Level 4 (71900) Diagnoses Trigger finger, left ring finger M65.342 Diabetes mellitus E11.9 CPT Codes Fracture Care - Fracture Billing Code: Fracture Billing Code ([id number])
[2024-12-31 13:21] VITALS: BMI 22.1
--- OUTSIDE RECORDS SUMMARY | 2024-12-31 14:34 | XMS_ITS | Encounter Summary ---
Author Organization [employer] Address [address] [facility] 7t [place] [address] Care Team Providers Care Addressograph Operator Name Role Phone Earlene Beck MD Primary Care Provider [phone] Reason for Visit * Reason Onset Date Comments Lab Orders 02/22/2024 Encounter Details Date Type Department Care Team ([facility] st Contact Info) Description 02/22/2024 Telephone [facility] MEDICINE [address] [place] [address] Earlene Beck MD 505 [place] [address] Lab Orders Social History Tobacco Use Types [...] Description 01/02/2025 11:00 AM EDT Office Visit [facility] CHC MED & PEDS 505 [place] [address] Earlene Beck MD 505 [place] [address] documented as of this encounter Visit Diagnoses Not on filedocumented in this encounter Care Teams Addressograph Operator Relationship Specialty Start Date End Date Earlene Beck MD [address] [place] [phone] PCP - General Family Medicine 02/26/20 documented as of this encounter
--- OUTSIDE RECORDS SUMMARY | 2024-12-31 14:34 | XMS_ITS | Encounter Summary ---
Author Organization [employer] Address [address] [place] [address] 7t [place] [address] Care Team Providers Care Building Maintenance Custodian Name Role Phone Earlene Beck MD Primary Care Provider [phone] Encounter Details Date Type Department Care Team (Latest Contact Info) Description 05/09/2018 Abstract [facility] CONVERSIONS Dental, Provider, DDS Social [...] Description 01/02/2025 11:00 AM EDT Office Visit [facility] CHC MED & PEDS [address] [place] [address] Earlene Beck MD 505 [place] [address] documented as of this encounter Visit Diagnoses Not on filedocumented in this encounter Care Teams Building Maintenance Custodian Relationship Specialty Start Date End Date Earlene Beck MD [address] [place] [phone] PCP - General Family Medicine 02/26/20 documented as of this encounter
--- OUTSIDE RECORDS SUMMARY | 2024-12-31 14:34 | XMS_ITS | Clinical Summary ---
Author Organization [address] [facility] Address 175 [place] [address] Phone Care Team Providers Care Pest Controller Name Role Phone Earlene eBck MD Primary Care Provider [phone] Allergies Active Allergy Reactions Criticality Noted Date Comments Naproxen 03/25/2024 Active Problems Problem Noted Date Diagnosed Date Diabetic neuropathy, type II diabetes mellitus [place] [place] [facility] [place]28[place] 03/18/2024 Long-term insulin use in typ e 2 diabetes ([facility] [place], [facility] [place]28[place] 03/18/2024 Seizure ([facility] [place], [facility] [place]28) 03/18/2024 COPD (chronic obstructive pu lmonary disease) ([facility] [place] [facility] [place]28[place] 03/18/2024 Encounters Date Type Department Care Team Description 10/10/2024 1:00 PM EDT Office Visit [facility] [place] [address] [address] Oracio Smalls, DPM Dermatophytosis of nail (Primary Dx); Diabetic mononeuropathy simplex ([facility] [place], [facility] [place]28[place] Tinea pedis of both feet from [...] PM EDT Office Visit [facility] [place] [address] [address] Oracio Smalls, DPM [address] [address] Health Maintenance Due Date Last Done Comments [...] patient's age to complete this topic Insurance [facility] MEDICARE Member Subscriber Plan / Payer (Ef fective 2016-Present) Name:PEYTON SALDAÑA Relation to Subscriber:Self Name:Peyton Saldaña Payer ID:[id number] Group ID:[id number] Type:Not on file Address: [facility] JOÃ[place]ENEZ [id number] Care Teams Pest Controller Relationship Specialty Start Date End Date Earlene Beck MD [address] [place] [phone] PCP - General 12/27/23
--- OUTSIDE RECORDS SUMMARY | 2024-12-31 14:34 | XMS_ITS | Encounter Summary ---
Author Organization [employer] Address [address] [place] [address] 7 [place] [address] Care Team Providers Care Circular Stuffer Name Role Phone Earlene Beck MD Primary Care Provider [phone] Reason for Visit * Reason Comments Med Refill Encounter Details Date Type Department Care Team (Late Contact Info) Description 01/07/2023 Refill [facility] MED & PEDS [address] [place] [address] Marie Reeves MD 505 [place] [address] Osteoarthritis of multiple joints, unspecified osteoarthritis type [...] Department Care Team (Late Contact Info) Description 01/02/2025 11:00 AM EDT Office Visit [facility] MED & PEDS [address] [place] [address] Earlene Beck MD 505 [place] [address] documented as of this encounter Visit Diagnoses Diagnosis Osteoarthritis of multiple joints, unspecified osteoarthritis type documented in this encounter Care Teams Circular Stuffer Relationship Specialty Start Date End Date Earlene Beck MD [address] [place] [address] PCP - General Family Medicine 02/26/20 documented as of this encounter
--- OUTSIDE RECORDS SUMMARY | 2024-12-31 14:34 | XMS_ITS | Encounter Summary ---
Author Organization [employer] Address [address] [facility] 7t [place] [address] Care Team Providers Care Ambulance Attendant Name Role Phone Earlene Beck MD Primary Care Provider [phone] Reason for Visit * Reason Comments Med Refill Encounter Details Date Type Department Care Team ([facility] st Contact Info) Description 08/26/2024 Refill [facility] CHC MED & PEDS [address] [place], [place] [phone] Earlene Beck MD 505 [place] [address] Type 2 diabetes mellitus with diabetic polyneuropathy [...] Description 01/02/2025 11:00 AM EDT Office Visit [facility] CHC MED & PEDS [address] [place] [address] Earlene Beck MD 505 [place] [address] documented as of this encounter Visit Diagnoses Diagnosis Type 2 diabetes mellitus with diabetic polyneuropathy (CMS/HCC) documented in this encounter Care Teams Ambulance Attendant Relationship Specialty Start Date End Date Earlene Beck MD [address] [place] [phone] PCP - General Family Medicine 02/26/20 documented as of this encounter
--- OUTSIDE RECORDS SUMMARY | 2024-12-31 14:34 | XMS_ITS | Clinical Summary ---
Author Organization [employer] Address [address] [place] [address] 7t [place] [address] Care Team Providers Care Director Hr Communications Name Role Phone Earlene Beck MD Primary Care Provider [phone] Allergies Active Allergy Reactions Criticality Noted Date Comments Naproxen 06/11/2013 Medications * This document contains information received from the source organization and may not represent a complete record from that organization. famotidine (Pepcid) 40 MG tabletIndications :Epigastric pain Take 1 tablet (40 mg) by mouth at bedtime. 90 tablet 1 023 Active acetaminophen (Tylenol 8 Hour) 650 MG ER tabletIndications :Osteoarthritis of multiple joints, unspecified osteoarthritis type TAKE TWO TABLETS BY MOUTH EVERY 8 HOURS NEEDED WITH WATER DO NOT BREAK, CRUSH, DISSOLVE OR CHEW 90 tablet 11 023 Active ammonium lactate (Lac-Hydrin) 12 % lotion APPLY ON FEET ONCE DAILY 226 g 11 023 Active Blood Glucose Monitoring Suppl (FreeStyle [place] Lite) w/Device kit 023 Active Blood Pressure kitIndications:El evated blood pressure reading 1 Units in the morning. 1 kit 023 Active carvedilol (Coreg) 12.5 MG tablet TAKE ONE TABLET TWICE DAILY IN THE MORNING AND AT BEDTIME WITH FOOD 180 tablet 1 024 Active Aspirin Adult Low Strength 81 MG EC tablet TAKE ONE TABLET EVERY MORNING 90 tablet 1 024 Active FREESTYLE LITE test stripIndications: Type 2 diabetes mellitus with diabetic neuropathy, with long-term current use of insulin ([facility]) TEST BLOOD SUGAR UP TO THREE TIMES DAILY DIRECTED 100 strip 11 024 Active Diclofenac Sodium 1 % gel APPLY 2 GRAM'S TO AFFECTED AREA(s) TWICE DAILY NEEDED 100 g 3 Active esomeprazole (NexIUM) [address] capsuleIndication s:Gastroesophagea l reflux disease without esophagitis TAKE ONE CAPSULE EVERY MORNING BEFORE BREAKFAST 90 capsule 1 024 Active cholecalciferol VITAMIN D (Vitamin D-3) 50 MCG (2000 UT) capsule TAKE ONE CAPSULE EVERY MORNING 90 capsule 3 024 Active diclofenac (Voltaren) 75 MG EC tablet [...] EC tablet Take 500 mg by mouth. 012 Active dapagliflozin (Farxiga) 10 MGIndications:Typ e 2 diabetes mellitus with diabetic neuropathy, with long-term current use of insulin ([facility]) Take 1 tablet (10 mg) by mouth Once per day. 30 tablet 025 2025 Active dicyclomine (Bentyl) 20 MG tabletIndications :Irritable bowel syndrome with diarrhea TAKE ONE TABLET in the morning, at noon, in the evening, and at bedtime 120 tablet 1 025 Active clotrimazole (Lotrimin) 1 % cream apply to the affected area(s) twice daily 025 Active Continuous Glucose Sole Leveler (FreeStyle Hetal 3 [place]) deviceIndications :Type 2 diabetes mellitus with diabetic neuropathy, with long-term current use of insulin (CMS/HCC) 1 each Once per day. Use as directed for CGM 1 each 025 Active Continuous Glucose Sensor (FreeStyle Hetal 3 Plus Sensor) miscIndications:T ype 2 diabetes mellitus with diabetic [...] each 2025 Active metFORMIN (Glucophage) 1000 MG tabletIndications :Type 2 diabetes mellitus with diabetic polyneuropathy (CMS/HCC) Take 1 tablet (1,000 mg) by mouth with breakfast and with evening meal. 180 tablet Active Dulaglutide 1.5 MG/0.5ML solution auto-injectorIndi cations:Type 2 diabetes mellitus with diabetic neuropathy, with long-term current use of insulin ([facility]) Inject 1.5 mg under the skin 1 (one) time per week. 2 mL 2025 Active Combivent Respimat 20-100 MCG/ACT inhalerIndication s:Chronic obstructive pulmonary disease, unspecified COPD type ([facility]) INHALE 1 PUFF 4 TIMES A DAY, MAY TAKE ADDITIONAL PUFFS NEEDED. (MAX 6 PUFFS PER DAY) 12 g Active Toujeo SoloStar 300 UNIT/ML injection INJECT 20 UNITS SUBCUTANEOUSLY EVERY NIGHT AT BEDTIME 4.5 mL Active oxyCODONE-acetami nophen (Percocet) 5-325 MG tablet TAKE ONE TABLET DAILY NEEDED FOR PAIN Active sertraline (Zoloft) 100 MG tablet TAKE ONE TABLET EVERY MORNING WITH 50 MG TABLET 30 tablet Active mirtazapine (Remeron) 45 MG tablet TAKE ONE TABLET EVERY NIGHT AT BEDTIME 30 tablet Active atorvastatin (Lipitor) 80 MG tablet TAKE ONE TABLET EVERY NIGHT AT BEDTIME 30 tablet Active oxybutynin (Ditropan) 5 MG tablet TAKE ONE TABLET TWICE DAILY IN THE MORNING AND AT BEDTIME 60 tablet Active cetirizine (ZyrTEC) 10 MG tablet TAKE ONE TABLET EVERY MORNING 30 tablet Active Easy Touch Lancets 33G/Twist miscIndications:T ype 2 diabetes mellitus with diabetic neuropathy, with long-term current use of insulin ([facility]) USE TO TEST BLOOD SUGAR THREE TIMES DAILY 100 each 11 Active sertraline (Zoloft) 50 MG tablet TAKE ONE TABLET EVERY MORNING WITH 100 MG TABLET 30 tablet 11 Active gabapentin (Neurontin) 800 MG tabletIndications :Osteoarthritis of multiple joints, unspecified osteoarthritis type TAKE ONE TABLET EVERY MORNING and TAKE TWO TABLETS EVERY DAY AT BEDTIME 90 tablet 1 Active BD Pen Needle Carri Ultrafine 32G X 4 MM misc USE ONE DAILY 100 each 11 Active Alcohol Swabs (Alcohol Prep) 70 % pads USE THREE DAILY 100 each 5 Active Pentips 32G X 4 MM misc USE TO INJECT INSULIN DAILY 100 each 024 2024 Discontinued Alcohol Swabs (Alcohol Prep) 70 % pads USE THREE DAILY 100 each 5 024 2024 Discontinued Active Problems Problem Noted Date Diagnosed Date Abdominal pain 10/31/2022 Assessment & Plan (10/31/2022 9:41 AM EDT): Advised patient to call to schedule an appointment with GI Dr. Elvi Darling. Hyperkalemia 10/31/2022 Assessment & Plan (10/31/2022 9:41 AM EDT): Patient [facility] on 10/07/22 for abdominal pain with [...] Encounters Date Type Department Care Team Description 12/25/2024 Patient Outreach [facility] MEDICINE [address] [place] [phone] Earlene Beck MD Pre-visit Planning ([facility] screening completed on 08/28/24 ) 12/20/2024 Refill [facility] CHC MED & PEDS [address] [place] [address] Earlene Beck MD 12/19/2024 Orders Only GENERIC EXTERNAL DATA DEPARTMENT Provider, Generic External Data 12/13/2024 Refill [facility] CHC MED & PEDS [address] [place] [address] Earlene Beck MD 12/12/2024 Telephone [facility] MEDICINE [address] [place] [address] Earlene Beck MD 12/05/2024 Telephone [facility] MEDICINE [address] [place] [address] Earlene Beck MD 11/22/2024 Refill [facility] CHC MED & PEDS [address] [place] [address] Earlene Beck MD Osteoarthritis of multiple joints, unspecified osteoarthritis type 11/21/2024 Refill [facility] MEDICINE [address] [place] [address] Earlene Beck MD Type 2 diabetes mellitus with diabetic neuropathy, with long-term current use of insulin ([facility]) 11/12/2024 Refill [facility] CHC MED & PEDS [address] [facility] [place] [address] Earlene Beck MD Osteoarthritis of multiple joints, unspecified osteoarthritis type 10/08/2024 Orders Only [facility] CHC MED & PEDS [address] [place] [address] Earlene Beck MD 09/30/2024 Telephone [facility] MED & PEDS 505 [facility] [place] [phone] Earlene Beck MD Prior Authorization from Last 3 Months Immunizations Immunization Administration [...] 68 08/28/2024 10:23 AM EDT Temperature 36.3 C (97.3 F) 08/28/2024 10:23 AM EDT Respiratory Rate 18 08/28/2024 10:23 AM EDT [...] Description 01/02/2025 11:00 AM EDT Office Visit [facility] MED & PEDS [address] [place] [address] Earlene Beck MD [address] [place] [address] Health Maintenance Due Date Last Done Comments CT Colonography 1965 FIT DNA/Cologuard 1965 FIT 1965 FOBT 1965 Sigmoidoscopy 1965 Alcohol/Substance Use Screening 1977 Diabetes: Urine Protein Screening 1984 Diabetes: Foot Exam 09/01/2023 08/31/2022, 3 Colonoscopy 11/28/2024 Colorectal Cancer Screening 11/28/2024 Influenza Vaccine (#1) 2024 4, 02/08/2023, 02/24/2022, Additional history exists Diabetes: Hemoglobin A1C 03/21/2025 025, 07/09/2024, 04/10/2024, Additional history exists Depression Screening 08/28/2025 08/28/2024, 08/29/19 25 Disability Screening 08/28/2025 08/28/2024 SDOH Screening 08/28/2025 08/28/2024 Tobacco Screening 08/28/2025 08/28/2024 Lipid Panel 10/08/2025 10/08/2024, 03/31, 06/28/2023, Additional history exists Eye Exam 04/12/2026 04/12/2024, 03/31, 04/12/2024, Additional [...] Screening Completed 10/08/2024 Hepatitis C Screening Completed 10/08/2024, 025 HIB Vaccines Aged Out No longer eligi [...] Date/Time Associated Diagnosis Comments HEMOGLOBIN A1C Routine 12/19/2024 2:15 PM EDT HEPATITIS C VIRAL RNA, QUANTITATIVE, REAL-TIME PCR Routine 10/08/2024 12:00 AM EDT HIV 1/2 ANTIGEN/ANTIBODY, FOURTH GENERATION W/RFL Routine 10/08/2024 12:00 AM EDT Screen for STD (sexually transmitted disease) HEPATITIS C AB W/REFL TO HCV RNA, QN, PCR Routine 10/08/2024 12:00 AM EDT Screen for STD (sexually transmitted disease) HEPATIC FUNCTION PANEL Routine 10/08/2024 12:00 AM EDT Type 2 diabetes mellitus with diabetic neuropathy, with long-term current use of insulin ([facility]) LIPID PANEL, STANDARD Routine 10/08/2024 12:00 AM EDT Type 2 diabetes mellitus with diabetic neuropathy, with long-term current use of insulin ([facility]) BASIC METABOLIC PANEL Routine 10/08/2024 12:00 AM EDT Type 2 diabetes mellitus with diabetic neuropathy, with long-term current use of insulin ([facility]) from Last 3 Months Results * (ABNORMAL) Hemoglobin A1c (12/19/2024 2:15 PM EDT) Hemoglobin A1c 8.3(H) <6.0 % [facility] Comment:Hemoglobin A1C Refer ence Range Adults: 4.8 - 6.0 % Non diabetic: < 6.0 % Goal: < 7.0 %Additional Action Suggested: > 8.0 %Note: Hemoglobin A1c results are invalid for patients with abnormal amounts of HbF. Blood transfusions may impact the HbA1c concentration in the patient sample. Estimated Average Glucose 192 mg/dL [facility] Comment:eAG = Estimated ave rage glucose which is %A1C expressed asaverage glucose, using the formula of the Z0K-EiqjnorSluswzp Glucose study (ADAG), Diabetes Care, Vol.31,#8,Nov. 2007 12/19/2024 2:15 PM EDT 12/19/2024 2:15 PM EDT us Generic External Data Provider LAB BLOOD ORDERAB LES Final Result [facility] [address] [place] [phone] * Hepatitis C Viral RNA, Quantitative, Real-Time PCR (10/08/2024 12:00 AM EDT) Pathologist [facility] Hepatitis C Viral Load <15 NOT DETECTED NOT DETECTED IU/mL [facility] HCV Log PCR <1.18 NOT DETECTED NOT DETECTED Log IU/mL [facility] Comment:For additional infor fiordaliza, please refer tohttp://education.Occlutech/faq/JZB49r5(This link is being provided for informational/educational purposes only.)THIS TEST WAS PERFORMED AT:[employer] [place] [id number] HIGH MD 10/08/2024 10/08/2024 Earlene Beck MD LAB BLOOD ORDERABLES Final Resul t Performing Organization Address [facility] Co de Phone Number [facility] [address] [place] [phone] * Hepatitis C Antibody with Reflex to HCV, RNA, Quantitative, Real-Time PCR (10/08/2024 12:00 AM EDT) Pathologist [facility] Hepatitis C Antibody GRAYZONE Nonreactive [facility] Comment:Antibodies to HCV ma y or may not be present. Suggest repeatanti-HCV in 4-6 weeks and/or HCV viral load if clinicallyindicated. Blood Venous blood specimen / Unknown 10/08/2024 10/08/2024 Earlene Beck MD LAB BLOOD ORDERABLES Final Resul t Performing Organization Address [facility] Co de Phone Number [facility] [address] [place] [phone] * HIV-1/2 Antigen and Antibodies, Fourth Generation, with Reflexes (10/08/2024 12:00 AM EDT) Pathologist [facility] HIV AB/AG Nonreactive Nonreactive [facility] Comment:HIV-1 p24 Ag and/or HIV-1/HIV-2 Ab not detected.A test result that is nonreactive does not exclude thepossibility of exposure to or infection with HIV-1 and/orHIV-2. Nonreactive results in this assay for individualswith prior exposure to HIV-1 and/or HIV-2 may be due toantigen and antibody levels that are below the limit ofdetection of this assay.The [employer] HIV Ag/Ab Combo assay result andsupplemental assay results should be interpreted inconjunction with the patient's clinical presentation,history and other laboratory results. If the results areinconsistent with clinical evidence, additional testing issuggested to confirm the result. Blood Venous blood specimen / Unknown 10/08/2024 10/08/2024 Earlene Beck MD LAB BLOOD ORDERABLES Final Resul t Performing Organization Address [facility] de Phone Number [facility] [address] [place] [phone] * (ABNORMAL) Hepatic Function Panel (10/08/2024 12:00 AM EDT) Bilirubin, Total 0.4 0.0 - 1.0 mg/dL [facility] Bilirubin, Direct 0.2 0.0 - 0.5 mg/dL [facility] Aspartate Amino Transferase 19 5 - 37 U/L [facility] Alanine Aminotransferase 13 0 - 40 U/L [facility] Total Protein 6.3(L) 6.5 - 8.0 g/dL [facility] Albumin Level 4.2 3.5 - 5.0 g/dL [facility] Alkaline Phosphatase 55 39 - 117 U/L [facility] Blood Venous blood specimen / Unknown 10/08/2024 10/08/2024 Earlene Beck MD LAB BLOOD ORDERABLES Final Resul t Performing Organization Address [facility] de [facility] Number [facility] [address] [place] [phone] * (ABNORMAL) Lipid Panel, Standard (10/08/2024 12:00 AM EDT) Triglycerides 60 <150 mg/dL [facility] Comment:Desirable Triglyceri de: less than 150 mg/dLBorderline High Triglyceride 150-199 mg/dLHigh Triglyceride: 200-499 mg/dLVery High Triglyceride: greater than or equal to 5OO mg/dL Cholesterol 104 <200 mg/dL [facility] Comment:Desirable Cholestero l: less than 200 mg/dLBorderline High Cholesterol: 200-239 mg/dLHigh Cholesterol: greater than 239 mg/dL LDL Cholesterol Calculated 56 <100 mg/dL [facility] Comment:Desirable LDL: less than 100 mg/dLNear Optimal/Above Optimal LDL: 110- 129 mg/dLBorderline High LDL: 130-159 mg/dLHigh LDL: 160-189 mg/dLVery High LDL: greater than or equal to 190 mg/dL HDL Cholesterol 36(L) >40 mg/dL [facility] Comment:Desirable HDL: great er than 40 mg/dL Note: This HDL assay may give artificially low results in patients with liver disease. Blood Venous blood specimen / Unknown 10/08/2024 10/08/2024 us Earlene Beck MD LAB BLOOD ORDERABLES Final Resul t [facility] [address] [place] [phone] * (ABNORMAL) Basic Metabolic Panel (10/08/2024 12:00 AM EDT) Sodium 142 135 - 145 mmol/L [facility] Potassium 4.4 3.3 - 5.1 mmol/L [facility] Chloride 107 96 - 108 mmol/L [facility] Carbon Dioxide 30(H) 22 - 29 mmol/L [facility] Anion Gap 9(L) 12 - 20 [facility] Urea Nitrogen (BUN) 19(H) 9 - 16 mg/dL [facility] Creatinine, Serum 0.69 0.5 - 1.4 mg/dL [facility] Estimated Glomerular Filt Rate >60 [facility] Comment:Chronic Kidney Disea se: Estimated GFR < 60 mL/min/1.01x8Nfjcac Kidney Disease: Estimated GFR < 15 mL/min/1.73m2 Glucose 161(H) 60 - 115 mg/dL [facility] Calcium 9.2 8.4 - 10.2 mg/dL [facility] Blood Venous blood specimen / Unknown 10/08/2024 10/08/2024 Earlene Beck MD LAB BLOOD ORDERABLES Final Resul t [facility] [address] [place] [phone] [phone] from Last 3 Months Insurance [facility] < [birth year] JOÃO JIMENEZ [id number] Care Teams Director Hr Communications Relationship Specialty Start Date End Date Earlene Beck MD [address] [place] [phone] PCP - General Family Medicine 02/26/20
--- OUTSIDE RECORDS SUMMARY | 2024-12-31 14:34 | XMS_ITS | Encounter Summary ---
Author Organization [employer] Address [address] [place] [address] 7 [place] [address] Care Team Providers Care Die Engraver Name Role Phone Earlene Beck MD Primary Care Provider [phone] Reason for Visit * Reason Comments Med Refill Encounter Details Date Type Department Care Team ([facility] Contact Info) Description 05/12/2022 Refill [facility] MED & PEDS [address] [place] [address] Earlene Beck MD [address] [place] [address] Irritable bowel syndrome with diarrhea; Gastro-esophageal reflux [...] Upcoming Encounters Date Type Department Care Team ([facility] Contact Info) Description 01/02/2025 11:00 AM EDT Office Visit [facility] MED & PEDS [address] [place] [address] Earlene eBck MD [address] [place] [address] documented as of this encounter Visit Diagnoses Diagnosis Irritable bowel syndrome with diarrhea Irritable bowel syndrome Gastro-esophageal reflux disease without esophagitis documented in this encounter Care Teams Die Engraver Relationship Specialty Start Date End Date Earlene Beck MD [address] [place] [address] PCP - General Family Medicine 02/26/20 documented as of this encounter
--- OUTSIDE RECORDS SUMMARY | 2024-12-31 14:34 | XMS_ITS | Encounter Summary ---
Author Organization [employer] Address [address] [facility] 7t [place] [address] Care Team Providers Care Electric Vehicle Electrician Name Role Phone Earlene Beck MD Primary Care Provider [phone] Reason for Visit * Reason Comments Med Refill Encounter Details Date Type Department Care Team ([facility] st Contact Info) Description 01/04/2024 Refill [facility] MED & PEDS [address] [place], [place] [phone] Emelina Carmona MD [address] [place], [place] [id number] Social History Tobacco Use Types Packs/Day Years [...] Description 01/02/2025 11:00 AM EDT Office Visit [facility] MED & PEDS [address] [place] [address] Earlene Beck MD [address] [place] [address] documented as of this encounter Visit Diagnoses Not on filedocumented in this encounter Care Teams Electric Vehicle Electrician Relationship Specialty Start Date End Date Earlene Beck MD [address] [place] [address] PCP - General Family Medicine 02/26/20 documented as of this encounter
--- OUTSIDE RECORDS SUMMARY | 2024-12-31 14:34 | XMS_ITS | Encounter Summary ---
Author Organization [employer] Address [address] [place] [address] 7t [place] [address] Care Team Providers Care Club Director Name Role Phone Earlene Beck MD Primary Care Provider [phone] Encounter Details Date Type Department Care Team (Latest Contact Info) Description 06/08/2020 Abstract [facility] CONVERSIONS Dental, Provider, DDS Social History Tobacco [...] Description 01/02/2025 11:00 AM EDT Office Visit [facility] MED & PEDS [address] [place] [address] Earlene Beck MD 505 [place] [address] documented as of this encounter Visit Diagnoses Not on filedocumented in this encounter Care Teams Club Director Relationship Specialty Start Date End Date Earlene Beck MD [address] [place] [address] PCP - General Family Medicine 02/26/20 documented as of this encounter
--- OUTSIDE RECORDS SUMMARY | 2024-12-31 14:34 | XMS_ITS | Encounter Summary ---
Author Organization [employer] Address [address] [facility] 7t [place] [address] Care Team Providers Care Trial Mgr Name Role Phone Earlene Beck MD Primary Care Provider [phone] Reason for Visit * Reason Onset Date Comments Med Refill 09/17/2024 Encounter Details Date Type Department Care Team ([facility] st Contact Info) Description 09/17/2024 Telephone [facility] MEDICINE [address] [place] [address] Earlene Beck MD [address] [place] [address] Med Refill Social History Tobacco Use Types [...] encounter Miscellaneous Notes * Telephone Encounter - Liliana Christensen LPN - 09/17/2024 10:59 AM EDT Medication was sent to [facility] on 08/26/24 with 11 refills. * Telephone Encounter - Debbie Irvin - 09/17/2024 10:54 AM EDT TC from pt requesting medication refill. Medications needing refill : - Continuous Glucose Sensor (FreeStyle Hetal 2 Sensor) misc To be sent to: [facility] [place] - [address] [facility] documented in this encounter Plan of Treatment Upcoming Encounters Date Type Department Care Team (Late st Contact Info) Description 01/02/2025 11:00 AM EDT Office Visit [facility] MED & PEDS [address] [place] [address] Earlene Beck MD [address] [place] [address] documented as of this encounter Visit Diagnoses Not on filedocumented in this encounter Additional Health Concerns Assessment Noted Time PHQ-9 Depression Total Score: 4 08/29/19 25 10:26 AM EDT documented as of this encounter Care Teams Trial Mgr Relationship Specialty Start Date End Date Earlene Beck MD [address] [place] [address] PCP - General Family Medicine 02/26/20 documented as of this encounter
--- OUTSIDE RECORDS SUMMARY | 2024-12-31 14:34 | XMS_ITS | Encounter Summary ---
Author Organization [employer] Address [address] [place] [address] 7 [place] [address] Care Team Providers Care Svp Of Digital Name Role Phone Earlene Beck MD Primary Care Provider [phone] Reason for Visit * Reason Comments Med Refill Encounter Details Date Type Department Care Team (Late Contact Info) Description 05/12/2022 Refill [facility] MED & PEDS [address] [place] [address] Earlene Beck MD [address] [place] [address] Irritable bowel syndrome with diarrhea; Type 2 [...] Description 01/02/2025 11:00 AM EDT Office Visit [facility] MED & PEDS [address] [place] [address] Earlene Beck MD [address] [place] [address] documented as of this encounter Visit Diagnoses Diagnosis Irritable bowel syndrome with diarrhea Irritable bowel syndrome Type 2 diabetes mellitus without complications (CMS/HCC) documented in this encounter Care Teams Svp Of Digital Relationship Specialty Start Date End Date Earlene Beck MD [address] [place] [address] PCP - General Family Medicine 02/26/20 documented as of this encounter
--- OUTSIDE RECORDS SUMMARY | 2024-12-31 14:34 | XMS_ITS | Encounter Summary ---
Author Organization [employer] Address [address] [facility] 7t [place] [address] Care Team Providers Care Trouble Tracer Name Role Phone Earlene Beck MD Primary Care Provider [phone] Reason for Visit * Reason Comments Med Refill Encounter Details Date Type Department Care Team ([facility] st Contact Info) Description 09/19/2024 Refill [facility] MED & PEDS [address] [place], [place] [phone] Earlene Beck MD 505 [place] [address] Osteoarthritis of multiple joints, unspecified osteoarthritis type [...] Description 01/02/2025 11:00 AM EDT Office Visit [facility] CH[facility] MED & PEDS [address] [place] [address] Earlene Beck MD [address] [place] [address] documented as of this encounter Visit Diagnoses Diagnosis Osteoarthritis of multiple joints, unspecified osteoarthritis type documented in this encounter Additional Health Concerns Assessment Noted Time PHQ-9 Depression Total Score: 4 08/29/19 25 10:26 AM EDT documented as of this encounter Care Teams Trouble Tracer Relationship Specialty Start Date End Date Earlene Beck MD [address] [place] [address] PCP - General Family Medicine 02/26/20 documented as of this encounter
--- OUTSIDE RECORDS SUMMARY | 2024-12-31 14:34 | XMS_ITS | Encounter Summary ---
Author Organization [employer] Address [address] [place] [address] 7t [place] [address] Care Team Providers Care Supervisor Microwave Name Role Phone Earlene Beck MD Primary Care Provider [phone] Encounter Details Date Type Department Care Team [...] Description 01/02/2025 11:00 AM EDT Office Visit [facility] MED & PEDS [address] [place] [address] Earlene Beck MD 505 [place] [address] documented as of this encounter Visit Diagnoses Not on filedocumented in this encounter Care Teams Supervisor Microwave Relationship Specialty Start Date End Date Earlene Beck MD [address] [place] [address] PCP - General Family Medicine 02/26/20 documented as of this encounter
--- OUTSIDE RECORDS SUMMARY | 2024-12-31 14:34 | XMS_ITS | Encounter Summary ---
Author Organization [employer] Address [address] [place] [address] 7 [place] [address] Care Team Providers Care Employment Attorney Name Role Phone Earlene Beck MD Primary Care Provider [phone] Reason for Visit * Reason Comments Med Refill Encounter Details Date Type Department Care Team (Late Contact Info) Description 01/10/2023 Refill [facility] MED & PEDS [address] [place] [address] Marie Reeves MD [address] [place] [address] Irritable bowel syndrome with diarrhea Social History [...] Description 01/02/2025 11:00 AM EDT Office Visit [facility] MED & PEDS [address] [place] [address] Earlene Beck MD [address] [place] [address] documented as of this encounter Visit Diagnoses Diagnosis Irritable bowel syndrome with diarrhea Irritable bowel syndrome documented in this encounter Care Teams Employment Attorney Relationship Specialty Start Date End Date Earlene Beck MD [address] [place] [address] PCP - General Family Medicine 02/26/20 documented as of this encounter
--- OUTSIDE RECORDS SUMMARY | 2024-12-31 14:34 | XMS_ITS | Encounter Summary ---
Author Organization [employer] Address [address] [facility] 7t [place] [address] Care Team Providers Care Band Booker Name Role Phone Earlene Beck MD Primary Care Provider [phone] Encounter Details Date Type Department Care Team ([facility] st Contact Info) Description 04/29/[address] [facility] CH[facility] MED & PEDS [address] [place] [address] ProviderKat MD Social History Tobacco Use Types [...] Description 01/02/2025 11:00 AM EDT Office Visit [facility] MED & PEDS [address] [place] [address] Earlene Beck MD [address] [place] [address] documented as of this encounter Procedures Procedure Name Priority Date/Time Associated Diagnosis Comments HEMOGLOBIN A1C Routine 04/10/2024 9:26 AM EST documented in this encounter Results * Hemoglobin A1c (04/10/2024 9:26 AM EST) Blood Venous blood specimen / Unknown Historical Provider LAB BLOOD ORDERABLES Yasmeen l Result documented in this encounter Visit Diagnoses Not on filedocumented in this encounter Care Teams Band Booker Relationship Specialty Start Date End Date Earlene Beck MD [address] [place] [address] PCP - General Family Medicine 02/26/20 documented as of this encounter
== END 2024-12-31 14:14 | disposition home or self-care (01) ==
PROVIDERS: PCP Student in an Organized Health Care Education/Training Program; Visit Provider Orthopaedic Surgery
DX: M65.342 Trigger finger, left ring finger (principal); E11.9 Type 2 diabetes mellitus without complications
CPT/HCPCS: 20550; 99214

== ENCOUNTER → 2024-12-31 13:15 | Outpatient (BNVA) | payer OTHER, SELFPAY | PROVIDERS: PCP Student in an Organized Health Care Education/Training Program; Visit Provider Orthopaedic Surgery | DX: M65.342 Trigger finger, left ring finger (principal); E11.9 Type 2 diabetes mellitus without complications | CPT/HCPCS: 20550; 99212; J1100; J2003 ==

== ENCOUNTER 2025-01-10 13:39 | Outpatient (AMB) | payer OTHER, SELFPAY ==
[2025-01-10 13:42] VITALS: BP 119/71; PULSE 76
--- NOTE | 2025-01-10 13:42 | MHC.OFFVIS ---
Vital Signs 01/10/25 13:42 Height 5 ft 9 in Weight 135 lb 5.821 oz BMI 20.0 BP 119/71 Blood Pressure Location Lt brachial Position Sitting Pulse 76 Intake Visit Reasons: Follow up RUQ abd pain Intake Note: Patient in office today in follow up of RUQ abd pain and weight loss. CC: Patient c/o diarrhea, weight loss, RUQ constant abdominal pain. Pain scale 10/10 per patient. He also reports no appetite, and states that he was told that he is due for EGD and colonoscopy. Medical Billing And Coding Specialist Required: Yes Medical Billing And Coding Specialist Language: [place] Citizen Accompanied by: Allergies naproxen (From NAPROSYN) Allergy (Mild, Verified 01/10/25 13:56) HIVES HPI HPI Follow up RUQ abd pain: Details: Assessment & Plan (1) Right flank pain: Code(s): R10.9 - Unspecified abdominal pain Category: Medical (2) GERD (gastroesophageal reflux disease): Code(s): K21.9 - Gastro-esophageal reflux disease without esophagitis Category: Medical (3) Diabetes type 2, uncontrolled: Code(s): E11.65 - Type 2 diabetes mellitus with hyperglycemia Category: Medical Qualifiers: Glycemic state: with hyperglycemia Qualified Code(s): E11.65 - Type 2 diabetes mellitus with hyperglycemia (4) Gastroparesis: Code(s): K31.84 - Gastroparesis Category: Medical (5) Type 2 diabetes mellitus with diabetic polyneuropathy: Code(s): E11.42 - Type 2 diabetes mellitus with diabetic polyneuropathy Category: Medical Qualifiers: Diabetes mellitus 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 - He reports a sensation of abdominal fullness and rapid satiety with minimal food intake. - Pain is notably worsened when in a supine position or lying on his side. - He denies additional gastrointestinal symptoms such as bloating or nausea. - Known history of Type 2 Diabetes Mellitus with previous uncontrolled levels (A1c 9.6 as of January 2024). - Recent improvements in glucose levels noted with a current reading of 150 mg/dL since starting a glucose sensor. (the patient has had an extensive workup for his pain that as it included prior to this appointment: In 2020 a negative colonoscopy screening, negative H pylori testing, an abdominal CT and abdominal MRI showing only hepatic steatosis and hemangioma along with a large volume of food in the stomach and trace pleural effusion, unremarkable x-rays of the thoracic and lumbar spine, unremarkable lab work for any sort of inflammatory/rheumatologic disease that could be contributing to the pain, and the pain has not been affected by dicyclomine. Patient has comorbid Takatsobo cardiomyopathy that resolve normal ejection fraction, COPD, poorly controlled diabetes) PLAN - Start medication for suspected diabetic gastroparesis, administering at low doses. - Arrange for a gastric emptying study with instructions on withholding medication prior to the test. - Obtain updated blood work to evaluate diabetes control. - Follow-up in three weeks to evaluate treatment efficacy. Patient was informed and verbally consented to the use of an ambient scribe for clinic note documentation during this visit. Orders: Orders NM gastric emptying study Today K31.84 - Gastroparesis Hemoglobin A1c Today E11.42 - Type 2 diabetes mellitus with diabetic polyneuropathy, Z79.4 - intermodal owner operator truck driver (current) use of insulin Medications: New metoclopramide HCl (Reglan) 5 mg PO QIDACHS 120 tabs 6RF [facility] LABS Laboratory Tests 12/19/24 14:15 Hemoglobin A1c % 8.3 H TODAY'S VISIT [place] Citizen # PFSH Medical History Diabetes mellitus Encounter for preoperative pulmonary examination Dysfunction of right rotator cuff Back pain Takotsubo cardiomyopathy Bilateral shoulder pain Irritable bowel syndrome with diarrhea Periumbilical abdominal pain Diarrhea Preop cardiovascular exam Long-term insulin use in type 2 diabetes Diabetes type 2, uncontrolled Tobacco abuse Sleep apnea Myocardial infarction BPH (benign prostatic hyperplasia) Depression Thrombocytopenia Alcohol abuse Peripheral neuropathy COPD (chronic obstructive pulmonary disease) Seizures Essential hypertension Hyperlipidemia LDL goal <70 Type 2 diabetes mellitus with diabetic polyneuropathy Surgical History Status post right rotator cuff repair Status post chest tube placement H/O cardiac catheterization Hx of shoulder surgery History of esophagogastroduodenoscopy (EGD) H/O colonoscopy History of arthroscopic surgery of shoulder Hx of hernia repair Hx of pneumonectomy Hx of knee surgery Family History Father Cancer Diabetes Mother CVD (cardiovascular disease) Social History Household Members: Spouse Alcohol intake: never Patient Tobacco Use Status: Former Tobacco user Tobacco use type: Cigarette Years Smoked: 40 Current occupational status: unemployed Current occupation: Right Handed Review of Systems Const Denies fatigue, Denies fever(s), Denies night sweats, Reports poor appetite and Reports weight loss ENT Reports Normal hearing present, Denies dental pain, Denies dysphagia, Denies hearing loss, Denies mouth pain, Denies odynophagia, Denies throat swelling, Denies tongue swelling and Reports other (Dentition adequate) Card Reports no additional complaints Resp Reports no additional complaints GI Details: Reports abdominal pain, Denies melena, Denies bloating, Denies hematochezia, Denies GI cramping, Denies dysphagia, Denies excessive flatus, Denies early satiety, Reports heartburn, Denies diarrhea, Reports loose stools, Reports nausea, Denies odynophagia, Reports vomiting and Denies hematemesis Musc Reports abnormal gait and Reports arthralgias Skin/Breast Denies pruritus, Denies lesions, Denies rash and Denies jaundice Neuro Reports Normal hearing present, Denies Abnormal speech present and Reports abnormal gait Endo Denies fatigue Aller/Immun Denies throat swelling and Denies tongue swelling Physical Exam Vital Signs: Last Vital Signs Pulse 76 01/10/25 13:42 BP 119/71 01/10/25 13:42 BMI result Body Mass Index 20.0 Const General: cooperative, no acute distress, well developed and well groomed Nutritional Appearance: well nourished and thin Orientation/consciousness: oriented to person, oriented to place and oriented to time Limitations: language barrier HEENT Head: Yes normocephalic and Yes atraumatic Eyes General: appearance normal, both eyes and all related structures Pupils: Equal, round and reactive pupils present Neck Neck: Yes normal visual inspection and Yes no lymphadenopathy Thyroid: Thyroid normal Resp Effort & Inspection: normal respiratory effort and able to speak in complete sentences Auscultation: clear to auscultation bilaterally Cardio Rate: regular rate Rhythm: regular rhythm Heart sounds: Normal, physiologic split S2 sound present Peripheral pulses: radial pulses present and posterior tibial pulses present GI Inspection: No distended and No Abdominal panniculus present Palpation (GI): Soft to palpation, nontender, no guarding, not rigid and No hepatosplenomegaly present Percussion: Yes normal to percussion Auscultation: normal bowel sounds Rectal Exam - Male: Yes deferred Skin General skin exam: no rashes or lesions noted, turgor normal, skin not dry, no jaundice, No spider nevi and no striae Rashes: no rashes Nails: normal Neuro General: oriented to person, oriented to place and oriented to time Cranial nerves: Yes Equal, round and reactive pupils present and Yes Normal hearing present Speech: No Abnormal speech present Extrem General: Yes normal to inspection, No clubbing, No cyanosis and No edema Psych Appearance: grossly normal and well kempt Mental Status: mental status grossly normal Speech and movement: Normal speech and movement present Affect: normal affect Attitude: cooperative Thought process: not confabulating and Impoverished thought process present Thought content: Normal thought content present Insight: Limited insight present (Psych) Judgement: Limited judgement present (Psych) Assessment & Plan Assessment & Plan (1) GERD (gastroesophageal reflux disease): Code(s): K21.9 - Gastro-esophageal reflux disease without esophagitis Category: Medical (2) Gastroparesis: Code(s): K31.84 - Gastroparesis Category: Medical (3) Right flank pain: Code(s): R10.9 - Unspecified abdominal pain Category: Medical (4) Diabetes type 2, uncontrolled: Comment: 12/19/2024 HbA1c= 8.2% Code(s): E11.65 - Type 2 diabetes mellitus with hyperglycemia Category: Medical Qualifiers: Glycemic state: with hyperglycemia Qualified Code(s): E11.65 - Type 2 diabetes mellitus with hyperglycemia (5) Pre-op examination: Code(s): Z01.818 - Encounter for other preprocedural examination Category: Medical Plan [place] Citizen # daughter translates per patient request He is here today with his daughter who is his primary teletray operator. - The patient is a 59-year-old male presenting with concerns of unintentional weight loss. - Noted to have lost weight from 150 pounds to 135 pounds. - Reports a lack of appetite and abdominal pain at night, occasionally waking from sleep. - Recently started on metoclopramide 5 mg 4 times a day, with minimal improvement in symptoms; dosage increase planned. - Current diabetes management deemed insufficient, with Hemoglobin A1c greater than 9, prompting discussion of potential endocrinology referral. He was recently started on Januvia about a month ago. - Gastrointestinal medication regimen includes dicyclomine and esomeprazole for symptom management. - Diarrhea reported twice a week, with formed bowel movements on other days. - we are going to be getting some new labs including a repeat of his A1c to see if it is coming down, a thyroid to see if this is a contributing factor to his weight loss and a colonoscopy/EGD. He is due for colonoscopy because he needed a 1-2 year repeat due to poor prep in the past. I have also generate a referral to endocrinology as he may be a particularly brittle diabetic. We are increasing his Reglan to 10 mg 4 times a day. Return office visit in 3 weeks Orders: Orders Complete Blood Count Auto Diff Today E11.65 - Type 2 diabetes mellitus with hyperglycemia, Z01.818 - Encounter for other preprocedural examination Comprehensive Met. Panel Today E11.65 - Type 2 diabetes mellitus with hyperglycemia, Z01.818 - Encounter for other preprocedural examination TSH reflex Free T4 Today E11.65 - Type 2 diabetes mellitus with hyperglycemia, Z01.818 - Encounter for other preprocedural examination Referrals GI Procedure Notification R63.4 - Abnormal weight loss Endocrinology Referral E11.65 - Type 2 diabetes mellitus with hyperglycemia Medications: New metoclopramide HCl (Reglan) 10 mg PO QIDACHS 120 tabs 6RF peg 3350-electrolytes 236-22.74-6.74 -5.86 gram (Golytely) until fecal effluent is clear; do not exceed a total volume of 2,000 mL 240 mL PO Q10M 4,000 mL 0RF 1 day Z12.11 - Encounter for screening for malignant neoplasm of colon bisacodyl (Dulcolax (bisacodyl)) 10 mg (2 x 5 mg) PO BEDTIME 4 tabs 0RF 2 days Discontinued metoclopramide HCl (Reglan) Discontinued Reason: Doctor's Order 5 mg PO QIDACHS 120 tabs 6RF Coding Level of Care Code Est Pt Level 4 (03506) Diagnoses GERD (gastroesophageal reflux disease) K21.9 Gastroparesis K31.84 Right flank pain R10.9 Uncontrolled type 2 diabetes mellitus with hyperglycemia E11.65 Glycemic state: with hyperglycemia Pre-op examination Z01.818 Time Spent (min) 33
--- OUTSIDE RECORDS SUMMARY | 2025-01-10 16:30 | XMS_ITS | Encounter Summary ---
Author Organization [employer] Address [address] [place] [address] [address] [place] [address] Care Team Providers Care Software Writer Name Role Phone Earlene Beck MD Primary Care Provider [phone] Reason for Visit * Reason Comments Med Refill Encounter Details Date Type Department Care Team (Late Contact Info) Description 05/12/2022 Refill [facility] CHC MED & PEDS [address] [place], [place] [phone] Earlene Beck MD [address] [place], [place] [phone] Irritable bowel syndrome with diarrhea; Type 2 [...] Department Care Team (Late Contact Info) Description 05/09/2025 1:00 PM EST Office Visit [facility] OPTOMETRY [address] [place], [place] [phone] Clarisa Rosas, OD [address] [place] [address] documented as of this encounter Visit Diagnoses Diagnosis Irritable bowel syndrome with diarrhea Irritable bowel syndrome Type 2 diabetes mellitus without complications (CMS/HCC) documented in this encounter Care Teams Software Writer Relationship Specialty Start Date End Date Earlene Beck MD [address] [place] [address] PCP - General Family Medicine 02/26/20 documented as of this encounter
--- OUTSIDE RECORDS SUMMARY | 2025-01-10 16:30 | XMS_ITS | Encounter Summary ---
Author Organization [employer] Address [address] [facility] 7t [place] [address] Care Team Providers Care Telephone Clerk Name Role Phone Earlene Beck MD Primary Care Provider [phone] Reason for Visit * Reason Comments Med Refill Encounter Details Date Type Department Care Team ([facility] st Contact Info) Description 08/26/2024 Refill [facility] CHC MED & PEDS [address] [place], [place] [phone] Earlene Beck MD 505 [place] [address] Type 2 diabetes mellitus with diabetic polyneuropathy [...] Care Team (Late st Contact Info) Description 05/09/2025 1:00 PM EST Office Visit [facility] OPTOMETRY [address] [place] [address] Clarisa Rosas, OD [address] [place] [address] documented as of this encounter Visit Diagnoses Diagnosis Type 2 diabetes mellitus with diabetic polyneuropathy (CMS/HCC) documented in this encounter Care Teams Telephone Clerk Relationship Specialty Start Date End Date Earlene Beck MD [address] [place] [address] PCP - General Family Medicine 02/26/20 documented as of this encounter
--- OUTSIDE RECORDS SUMMARY | 2025-01-10 16:30 | XMS_ITS | Encounter Summary ---
Author Organization [employer] Address [address] [place] [address] 7 [place] [address] Care Team Providers Care Political Analyst Name Role Phone Earlene Beck MD Primary Care Provider [phone] Reason for Visit * Reason Comments Med Refill Encounter Details Date Type Department Care Team (Late Contact Info) Description 05/12/2022 Refill [facility] CHC MED & PEDS [address] [place], [place] [phone] Earlene Beck MD [address] [place], [place] [phone] Irritable bowel syndrome with diarrhea; Gastro-esophageal reflux [...] Office Visit [facility] OPTOMETRY [address] [place], [place] [phone] Clarisa Rosas, OD [address] [place] [address] documented as of this encounter Visit Diagnoses Diagnosis Irritable bowel syndrome with diarrhea Irritable bowel syndrome Gastro-esophageal reflux disease without esophagitis documented in this encounter Care Teams Political Analyst Relationship Specialty Start Date End Date Earlene Beck MD [address] [place] [address] PCP - General Family Medicine 02/26/20 documented as of this encounter
--- OUTSIDE RECORDS SUMMARY | 2025-01-10 16:31 | XMS_ITS | Encounter Summary ---
Author Organization [employer] Address [address] [place] [address] 7t [place] [address] Care Team Providers Care Philosophy Faculty Name Role Phone Earlene Beck MD Primary Care Provider [phone] Encounter Details Date Type Department Care Team (Latest Contact Info) Description 05/09/2018 Abstract [facility] CONVERSIONS Dental, Provider, DDS Social History [...] Description 05/09/2025 1:00 PM EST Office Visit [facility] OPTOMETRY [address] [place] [address] Ralph, Clarisa, OD [address] [place] [address] documented as of this encounter Visit Diagnoses Not on filedocumented in this encounter Care Teams Philosophy Faculty Relationship Specialty Start Date End Date Earlene Beck MD [address] [place] [address] PCP - General Family Medicine 02/26/20 documented as of this encounter
--- OUTSIDE RECORDS SUMMARY | 2025-01-10 16:31 | XMS_ITS | Encounter Summary ---
Author Organization [employer] Address [address] [place] [address] 7t [place] [address] Care Team Providers Care Wood Flooring Specialist Name Role Phone Earlene Beck MD Primary Care Provider [phone] Encounter Details Date Type Department Care Team (Latest Contact Info) Description 06/08/2020 Abstract [facility] CONVERSIONS Dental, Provider, DDS Social History Tobacco [...] Description 05/09/2025 1:00 PM EST Office Visit [facility] OPTOMETRY [address] [place] [address] Ralph, Clarisa, OD [address] [place] [address] documented as of this encounter Visit Diagnoses Not on filedocumented in this encounter Care Teams Wood Flooring Specialist Relationship Specialty Start Date End Date Earlene Beck MD [address] [place] [address] PCP - General Family Medicine 02/26/20 documented as of this encounter
--- OUTSIDE RECORDS SUMMARY | 2025-01-10 16:31 | XMS_ITS | Encounter Summary ---
Author Organization [employer] Address [address] [facility] 7t [place] [address] Care Team Providers Care Associate Financial Analyst Name Role Phone Earlene Beck MD Primary Care Provider [phone] Encounter Details Date Type Department Care Team ([facility] st Contact Info) Description 01/10/2025 Orders Only GENERIC EXTERNAL DATA DEPARTMENT Provider, Generic External Data Social History Tobacco Use Types Packs/Day Years [...] EST Office Visit [facility] OPTOMETRY [address] [place], [place] [phone] Ralph, Clarisa, OD [address] [place] [address] documented as of this encounter Procedures Procedure Name Priority Date/Time Associated Diagnosis Comments TSH W/REFLEX TO FT4 Routine 01/10/2025 3 :04 PM EDT CBC WITH AUTO DIFFERENTIAL Routine 01/10/2025 3:04 PM EDT COMPREHENSIVE METABOLIC PANEL Routine 01/10/2025 3:04 PM EDT documented in this encounter Results * (ABNORMAL) TSH with Reflex to Free T4 (01/10/2025 3:04 PM EDT) TSH reflex Free T4 0.28(L) 0.32 - 4.0 uIU/mL [facility] 01/10/2025 3:04 PM EDT 01/10/2025 3:04 PM EDT us Generic External Data Provider LAB BLOOD ORDERAB LES Final Result [facility] [address] [place] [address] [phone] * (ABNORMAL) Comprehensive Metabolic Panel (01/10/2025 3:04 PM EDT) Pathologist [facility] Sodium 143 135 - 145 mmol/L [facility] Potassium 4.2 3.3 - 5.1 mmol/L [facility] Chloride 106 96 - 108 mmol/L [facility] Carbon Dioxide 31(H) 22 - 29 mmol/L [facility] Anion Gap 10(L) 12 - 20 [facility] Urea Nitrogen (BUN) 17(H) 9 - 16 mg/dL [facility] Creatinine, Serum 0.91 0.5 - 1.4 mg/dL [facility] Estimated Glomerular Filt Rate >60 [facility] Comment:Chronic Kidney Disea se: Estimated GFR < 60 mL/min/1.68x5Jnggah Kidney Disease: Estimated GFR < 15 mL/min/1.73m2 Glucose 108 60 - 115 mg/dL [facility] Calcium 8.9 8.4 - 10.2 mg/dL [facility] Bilirubin, Total 0.4 0.0 - 1.0 mg/dL [facility] Aspartate Amino Transferase 13 5 - 37 U/L [facility] Alanine Aminotransferase 11 0 - 40 U/L [facility] Total Protein 6.7 6.5 - 8.0 g/dL [facility] Albumin Level 4.4 3.5 - 5.0 g/dL [facility] Alkaline Phosphatase 83 39 - 117 U/L [facility] 01/10/2025 3:04 PM EDT 01/10/2025 3:04 PM EDT us Generic External Data Provider LAB BLOOD ORDERAB LES Final Result [facility] [address] [place], [place] [phone] * (ABNORMAL) CBC auto differential (01/10/2025 3:04 PM EDT) Pathologist [facility] White Blood Count 9.3 4.8 - 10.8 X10*3/uL [facility] Red Blood Count 4.93 4.60 - 5.80 X10*6/uL [facility] Hemoglobin 13.5(L) 14.0 - 18.0 g/dl [facility] Hematocrit 42.1 42.0 - 52.0 % [facility] Mean Corpuscular Volume 85.4 80.0 - 98.0 fL [facility] Mean Corpuscular Hemoglobin 27.4 27.0 - 33.0 pg [facility] Mean Corpuscular HGB Conc 32.1 31.0 - 36.0 g/dl [facility] Red Cell Distribution Width 13.4 11.0 - 16.0 % [facility] Platelet Count 145(L) 160 - 400 X10*3/uL [facility] Mean Platelet Volume 12.3 9.4 - 12.4 fL [facility] Neutrophils Percent Auto 63.8 45 - 73 % [facility] Imm Gran Pct Auto 0.2 0.0 - 0.4 % [facility] Lymphocytes Percent Auto 25.4 20 - 40 % [facility] Monocytes Percent Auto 5.9 2 - 11 % [facility] Eosinophils Percent Auto 4.2(H) 0 - 4 % [facility] Basophils Percent Auto 0.5 0 - 2 % [facility] NRBC Pct Auto 0.0 0.0 - 0.2 /100WBC [facility] Neutrophils Absolute Auto 6.0 2.0 - 8.3 x10*3/uL [facility] Imm Gran Abs Auto 0.02 0.00 - 0.03 X10*3/uL [facility] Lymphocytes Absolute Auto 2.4 1.2 - 4.9 X10*3/uL [facility] Monocytes Absolute Auto 0.6 0.1 - 1.2 X10*3/uL [facility] Eosinophils Absolute Auto 0.4 0.0 - 0.4 X10*3/uL [facility] Basophils Absolute Auto 0.1 0.0 - 0.2 X10*3/uL [facility] NRBC Abs Auto 0.000 0.0 - 0.012 X10*3/uL [facility] 01/10/2025 3:04 PM EDT 01/10/2025 3:04 PM EDT us Generic External Data Provider LAB BLOOD ORDERAB LES Final Result [facility] [address] [place] [address] [phone] documented in this encounter Visit Diagnoses Not on filedocumented in this encounter Additional Health Concerns Assessment Noted Time PHQ-9 Depression Total Score: 4 08/29/19 25 10:26 AM EDT documented as of this encounter Care Teams Associate Financial Analyst Relationship Specialty Start Date End Date Earlene Beck MD [address] [place] [address] PCP - General Family Medicine 02/26/20 documented as of this encounter
--- OUTSIDE RECORDS SUMMARY | 2025-01-10 16:31 | XMS_ITS | Encounter Summary ---
Author Organization [employer] Address [address] [facility] 7t [place] [address] Care Team Providers Care Outside Deliverer Name Role Phone Earlene Beck MD Primary Care Provider [phone] Reason for Visit * Reason Onset Date Comments Lab Orders 02/22/2024 Encounter Details Date Type Department Care Team ([facility] st Contact Info) Description 02/22/2024 Telephone [facility] MEDICINE [address] [place] [address] Earlene Beck MD [address] [place] [address] Lab Orders Social History Tobacco Use Types [...] Description 05/09/2025 1:00 PM EST Office Visit [facility] OPTOMETRY [address] [place] [address] Clarisa Rosas, OD [address] [place] [address] documented as of this encounter Visit Diagnoses Not on filedocumented in this encounter Care Teams Outside Deliverer Relationship Specialty Start Date End Date Earlene Beck MD [address] [place] [address] PCP - General Family Medicine 02/26/20 documented as of this encounter
--- OUTSIDE RECORDS SUMMARY | 2025-01-10 16:31 | XMS_ITS | Encounter Summary ---
Author Organization [employer] Address [address] [facility] 7t [place] [address] Care Team Providers Care Outsole Handler Name Role Phone Earlene Beck MD Primary Care Provider [phone] Reason for Visit * Reason Comments Med Refill Encounter Details Date Type Department Care Team ([facility] st Contact Info) Description 01/04/2024 Refill [facility] CHC MED & PEDS [address] [place], [place] [phone] Emelina Carmona MD [address] [place], [place] [phone] Social History Tobacco Use Types Packs/Day Years [...] Description 05/09/2025 1:00 PM EST Office Visit [facility] OPTOMETRY [address] [place] [address] Clarisa Rosas, OD [address] [place] [address] documented as of this encounter Visit Diagnoses Not on filedocumented in this encounter Care Teams Outsole Handler Relationship Specialty Start Date End Date Earlene Beck MD [address] [place] [address] PCP - General Family Medicine 02/26/20 documented as of this encounter
--- OUTSIDE RECORDS SUMMARY | 2025-01-10 16:31 | XMS_ITS | Encounter Summary ---
Author Organization [employer] Address [address] [place] [address] 7t [place] [address] Care Team Providers Care Fourdrinier Operator Name Role Phone Earlene Beck MD Primary Care Provider [phone] Encounter Details Date Type Department Care Team (Latest Contact Info) Description 11/09/2018 Abstract [facility] CONVERSIONS Dental, [...] Description 05/09/2025 1:00 PM EST Office Visit [facility] OPTOMETRY [address] [place] [address] Ralph, Clarisa, OD [address] [place] [address] documented as of this encounter Visit Diagnoses Not on filedocumented in this encounter Care Teams Fourdrinier Operator Relationship Specialty Start Date End Date Earlene Beck MD [address] [place] [address] PCP - General Family Medicine 02/26/20 documented as of this encounter
--- OUTSIDE RECORDS SUMMARY | 2025-01-10 16:31 | XMS_ITS | Clinical Summary ---
Author Organization [employer] Address [address] [place] [address] 7t [place] [address] Care Team Providers Care Cafeteria Operator Name Role Phone Earlene Beck MD Primary Care Provider [phone] Allergies Active Allergy Reactions Criticality Noted Date [...] 023 Active Blood Glucose Monitoring Suppl (FreeStyle [place] Lite) w/Device kit 023 Active Blood Pressure [...] neuropathy, with long-term current use of insulin ([facility]) TEST BLOOD SUGAR UP TO [...] neuropathy, with long-term current use of insulin ([facility]) Take 1 tablet (10 mg) by mouth Once per day. 30 tablet 025 2025 Active dicyclomine (Bentyl) 20 MG tabletIndications :Irritable bowel syndrome with diarrhea TAKE ONE TABLET in the morning, at noon, in the evening, and at bedtime 120 tablet 1 025 Active clotrimazole (Lotrimin) 1 % cream apply to the affected area(s) twice daily 025 Active Continuous Glucose Medical Physics Researcher (FreeStyle Hetal 3 Manitou) deviceIndications :Type 2 diabetes mellitus with diabetic [...] neuropathy, with long-term current use of insulin ([facility]) Inject 1.5 mg under the skin 1 (one) time per week. 2 mL 2025 Active Combivent Respimat 20-100 MCG/ACT inhalerIndication s:Chronic obstructive pulmonary disease, unspecified COPD type ([facility]) INHALE 1 PUFF 4 TIMES [...] neuropathy, with long-term current use of insulin ([facility]) USE TO TEST BLOOD SUGAR THREE TIMES [...] misc USE ONE DAILY 100 each 11 025 Active Alcohol Swabs (Alcohol Prep) 70 % pads USE THREE DAILY 100 each 5 025 Active acetaminophen (Tylenol 8 Hour) 650 MG ER tablet Take 1 tablet (650 mg) by mouth every 8 (eight) hours if needed for mild pain for up to 10 days. Do not crush, chew, or split. 30 tablet 025 2024 Active Pentips 32G X 4 MM misc [...] (10/31/2022 9:41 AM EDT): Patient seen in [facility] ED on 10/07/22 for abdominal pain with [...] Encounters Date Type Department Care Team Description 01/10/2025 Orders Only GENERIC EXTERNAL DATA DEPARTMENT Provider, Generic External Data 01/06/2025 Telephone [facility] [address] [place] [address] Earlene Beck MD 01/02/2025 11:00 AM EDT Office Visit [facility] [address] [place] [address] Earlene Beck MD Type 2 diabetes mellitus with diabetic neuropathy, with long-term current use of insulin (CMS/HCC) (Primary Dx); Obstructive sleep apnea syndrome; Chronic obstructive pulmonary disease, unspecified COPD type (CMS/HCC); Chronic right shoulder pain 01/02/2025 Travel 12/25/2024 Patient Outreach [facility] [address] [place] [address] Earlene Beck MD Pre-visit Planning (SDMN screening completed on 08/28/24 ) 12/20/2024 Refill [facility] [address] [facility] [place] [address] Earlene Beck MD 12/19/2024 Orders Only GENERIC EXTERNAL DATA DEPARTMENT Provider, Generic External Data 12/13/2024 Refill [facility] [address] [facility] [address] Earlene Beck MD 12/12/2024 Telephone [facility] [address] [place] [address] Earlene Beck MD 12/05/2024 Telephone [facility] [address] [place] [address] Earlene Beck MD 11/22/2024 Refill [facility] [address] [facility] [place] [address] Earlene Beck MD Osteoarthritis of multiple joints, unspecified osteoarthritis type 11/21/2024 Refill [facility] [address] [place] [address] Earlene Beck MD Type 2 diabetes mellitus with diabetic neuropathy, with long-term current use of insulin ([facility]) 11/12/2024 Refill [facility] [place] [address] Earlene Beck MD Osteoarthritis of multiple joints, unspecified osteoarthritis type from Last 3 Months Immunizations Immunization Administration [...] Sign Reading Time Taken Comments Blood Pressure 117/80 01/02/2025 10:55 AM EDT Pulse 79 01/02/2025 10:55 AM EDT Temperature 36.2 C (97.1 F) 01/02/2025 10:55 AM EDT Respiratory Rate 18 01/02/2025 10:55 AM EDT Oxygen Saturation 99% 08/28/2024 10:23 AM EDT Inhaled Oxygen Concentration - - Weight 60.8 kg (134 lb) 01/02/2025 10:55 AM EDT Height 175.3 cm (5' 9 ) 01/02/2025 10:55 AM EDT Body Mass Index 19.79 01/02/2025 10:55 AM EDT Plan of Treatment Upcoming Encounters Date Type Department Care Team (Late st Contact Info) Description 05/09/2025 1:00 PM EST Office Visit [facility] [address] [place] [address] Ralph, Clarisa, OD [address] [place] [address] Health Maintenance Due Date Last Done Comments CT Colonography 1965 FIT DNA/Cologuard 1965 FIT 1965 FOBT 1965 Sigmoidoscopy 1965 Diabetes: Urine Protein Screening 1984 Diabetes: Foot Exam 09/01/2023 08/31/2022, 3 Colonoscopy 11/28/2024 Colorectal Cancer Screening 11/28/2024 Influenza Vaccine (#1) 2024 4, 02/08/2023, 02/24/2022, Additional history exists Diabetes: Hemoglobin A1C 03/21/2025 025, 07/09/2024, 04/10/2024, Additional history exists Depression Screening 08/28/2025 08/28/2024, 08/29/19 25 Disability Screening 08/28/2025 08/28/2024 SDOH Screening 08/28/2025 08/28/2024 Lipid Panel 10/08/2025 10/08/2024, 03/31, 06/28/2023, Additional history exists Alcohol/Substance Use Screening 01/02/2026 01/02/2025 Tobacco Screening 01/02/2026 01/02/2025 Eye Exam 04/12/2026 04/12/2024, 03/31, 04/12/2024, Additional [...] FT4 Routine 01/10/2025 3 :04 PM EDT COMPREHENSIVE METABOLIC PANEL Routine 01/10/2025 3:04 PM EDT CBC WITH AUTO DIFFERENTIAL Routine 01/10/2025 3:04 PM EDT POCT GLUCOSE Routine 01/02/2025 10:56 AM EDT Type 2 diabetes mellitus with diabetic neuropathy, with long-term current use of insulin (CMS/HCC) HEMOGLOBIN A1C Routine 12/19/2024 2:15 PM EDT HEPATITIS C AB W/REFL TO HCV RNA, QN, PCR Routine 10/08/2024 12:00 AM EDT Screen for STD (sexually transmitted disease) HIV 1/2 ANTIGEN/ANTIBODY, FOURTH GENERATION W/RFL Routine 10/08/2024 12:00 AM EDT Screen for STD (sexually transmitted disease) LIPID PANEL, STANDARD Routine 10/08/2024 12:00 AM EDT Type 2 diabetes mellitus with diabetic neuropathy, with long-term current use of insulin ([facility]) from Last 3 Months or Most Recently Relevant to Health Maintenance Results * (ABNORMAL) TSH with Reflex to Free T4 (01/10/2025 3:04 PM EDT) TSH reflex Free T4 0.28(L) 0.32 - 4.0 uIU/mL [facility] 01/10/2025 3:04 PM EDT 01/10/2025 3:04 PM EDT us Generic External Data Provider LAB BLOOD ORDERAB LES Final Result [facility] [address] [place] [phone] * (ABNORMAL) CBC auto differential (01/10/2025 3:04 PM EDT) White Blood Count 9.3 4.8 - 10.8 X10*3/uL [facility] Red Blood Count 4.93 4.60 - 5.80 X10*6/uL [facility] Hemoglobin 13.5(L) 14.0 - 18.0 g/dl [facility] Hematocrit 42.1 42.0 - 52.0 % [facility] Mean Corpuscular Volume 85.4 80.0 - 98.0 fL [facility] Mean Corpuscular Hemoglobin 27.4 27.0 - 33.0 pg [facility] Mean Corpuscular HGB Conc 32.1 31.0 - 36.0 g/dl [facility] Red Cell Distribution Width 13.4 11.0 - 16.0 % [facility] Platelet Count 145(L) 160 - 400 X10*3/uL [facility] Mean Platelet Volume 12.3 9.4 - 12.4 fL [facility] Neutrophils Percent Auto 63.8 45 - 73 % [facility] Imm Gran Pct Auto 0.2 0.0 - 0.4 % [facility] Lymphocytes Percent Auto 25.4 20 - 40 % [facility] Monocytes Percent Auto 5.9 2 - 11 % [facility] Eosinophils Percent Auto 4.2(H) 0 - 4 % [facility] Basophils Percent Auto 0.5 0 - 2 % [facility] NRBC Pct Auto 0.0 0.0 - 0.2 /100WBC [facility] Neutrophils Absolute Auto 6.0 2.0 - 8.3 x10*3/uL [facility] Imm Gran Abs Auto 0.02 0.00 - 0.03 X10*3/uL [facility] Lymphocytes Absolute Auto 2.4 1.2 - 4.9 X10*3/uL [facility] Monocytes Absolute Auto 0.6 0.1 - 1.2 X10*3/uL [facility] Eosinophils Absolute Auto 0.4 0.0 - 0.4 X10*3/uL [facility] Basophils Absolute Auto 0.1 0.0 - 0.2 X10*3/uL [facility] NRBC Abs Auto 0.000 0.0 - 0.012 X10*3/uL [facility] 01/10/2025 3:04 PM EDT 01/10/2025 3:04 PM EDT us Generic External Data Provider LAB BLOOD ORDERAB LES Final Result [facility] [address] [place], [place] [phone] * (ABNORMAL) Comprehensive Metabolic Panel (01/10/2025 3:04 PM EDT) Sodium 143 135 - 145 mmol/L [facility] Potassium 4.2 3.3 - 5.1 mmol/L [facility] Chloride 106 96 - 108 mmol/L [facility] Carbon Dioxide 31(H) 22 - 29 mmol/L [facility] Anion Gap 10(L) 12 - 20 [facility] Urea Nitrogen (BUN) 17(H) 9 - 16 mg/dL [facility] Creatinine, Serum 0.91 0.5 - 1.4 mg/dL [facility] Estimated Glomerular Filt Rate >60 [facility] Comment:Chronic Kidney Disea se: Estimated GFR < 60 mL/min/1.08u0Voczyl Kidney Disease: Estimated GFR < 15 mL/min/1.73m2 Glucose 108 60 - 115 mg/dL [facility] Calcium 8.9 8.4 - 10.2 mg/dL [facility] Bilirubin, Total 0.4 0.0 - 1.0 mg/dL [facility] Aspartate Amino Transferase 13 5 - 37 U/L [facility] Alanine Aminotransferase 11 0 - 40 U/L [facility] Total Protein 6.7 6.5 - 8.0 g/dL [facility] Albumin Level 4.4 3.5 - 5.0 g/dL [facility] Alkaline Phosphatase 83 39 - 117 U/L [facility] 01/10/2025 3:04 PM EDT 01/10/2025 3:04 PM EDT Generic External Data Provider LAB BLOOD ORDERAB LES Final Result Performing Organization Address City/[facility]/ZIP Co de Phone Number [facility] [address] [place] [phone] * POCT Glucose (01/02/2025 10:56 AM EDT) Glucose Blood, POC 148 60 - 200 mg/dL QC Media Lot # [id number] Lot# Expiration Date Blood Capillary blood specimen / Unknown 01/02/2025 10:56 AM EDT Earlene Beck MD POINT OF CARE TEST ENTER/EDIT OR DERABLES Final Result * (ABNORMAL) Hemoglobin A1c (12/19/2024 2:15 PM EDT) Hemoglobin A1c 8.3(H) <6.0 % [facility] Comment:Hemoglobin A1C Refer ence Range Adults: 4.8 - 6.0 % Non diabetic: < 6.0 % Goal: < 7.0 %Additional Action Suggested: > 8.0 %Note: Hemoglobin A1c results are invalid for patients with abnormal amounts of HbF. Blood transfusions may impact the HbA1c concentration in the patient sample. Estimated Average Glucose 192 mg/dL [facility] Comment:eAG = Estimated ave rage glucose which is %A1C expressed asaverage glucose, using the formula of the L3O-NtlpzfeOegtdge Glucose study (ADAG), Diabetes Care, Vol.31,#8,Nov. 2007 12/19/2024 2:15 PM EDT 12/19/2024 2:15 PM EDT Generic External Data Provider LAB BLOOD ORDERAB LES Final Result Performing Organization Address City/[facility]/ZIP Co de Phone Number [facility] [address] [place] [phone] * Hepatitis C Antibody with Reflex to HCV, RNA, Quantitative, Real-Time PCR (10/08/2024 12:00 AM EDT) Hepatitis C Antibody GRAYZONE Nonreactive [facility] Comment:Antibodies to HCV ma y or may not be present. Suggest repeatanti-HCV in 4-6 weeks and/or HCV viral load if clinicallyindicated. Blood Venous blood specimen / Unknown 10/08/2024 10/08/2024 Earlene Beck MD LAB BLOOD ORDERABLES Final Resul t Performing Organization Address [facility]/ZIP Co de Phone Number [facility] [address] [place] [phone] * HIV-1/2 Antigen and Antibodies, Fourth Generation, with Reflexes (10/08/2024 12:00 AM EDT) Pathologist [facility] HIV AB/AG Nonreactive Nonreactive [facility] Comment:HIV-1 p24 Ag and/or HIV-1/HIV-2 Ab not detected.A test result that is nonreactive does not exclude thepossibility of exposure to or infection with HIV-1 and/orHIV-2. Nonreactive results in this assay for individualswith prior exposure to HIV-1 and/or HIV-2 may be due toantigen and antibody levels that are below the limit ofdetection of this assay.The [employer] HIV Ag/Ab Combo assay result andsupplemental assay results should be interpreted inconjunction with the patient's clinical presentation,history and other laboratory results. If the results areinconsistent with clinical evidence, additional testing issuggested to confirm the result. Blood Venous blood specimen / Unknown 10/08/2024 10/08/2024 Earlene Beck MD LAB BLOOD ORDERABLES Final Resul t Performing Organization Address City/[facility]/ZIP Co de Phone Number [facility] [address] [place] [phone] * (ABNORMAL) Lipid Panel, Standard (10/08/2024 12:00 AM EDT) Triglycerides 60 <150 mg/dL [facility] Comment:Desirable Triglyceri de: less than 150 mg/dLBorderline High Triglyceride 150-199 mg/dLHigh Triglyceride: 200-499 mg/dLVery High Triglyceride: greater than or equal to 5OO mg/dL Cholesterol 104 <200 mg/dL [facility] Comment:Desirable Cholestero l: less than 200 mg/dLBorderline High Cholesterol: 200-239 mg/dLHigh Cholesterol: greater than 239 mg/dL LDL Cholesterol Calculated 56 <100 mg/dL [facility] Comment:Desirable LDL: less than 100 mg/dLNear Optimal/Above Optimal LDL: 110- 129 mg/dLBorderline High LDL: 130-159 mg/dLHigh LDL: 160-189 mg/dLVery High LDL: greater than or equal to 190 mg/dL HDL Cholesterol 36(L) >40 mg/dL [facility] Comment:Desirable HDL: great er than 40 mg/dL Note: This HDL assay may give artificially low results in patients with liver disease. Blood Venous blood specimen / Unknown 10/08/2024 10/08/2024 us Earlene Beck MD LAB BLOOD ORDERABLES Final Resul t [facility] [address] [place] [phone] from Last 3 Months or Most Recently Relevant to Health Maintenance Insurance [facility]ARE < 65 [place]ENEZ [id number] Care Teams Cafeteria Operator Relationship Specialty Start Date End Date Earlene Beck MD [address] [place] [phone] PCP - General Family Medicine 02/26/20
--- OUTSIDE RECORDS SUMMARY | 2025-01-10 16:31 | XMS_ITS | Encounter Summary ---
Author Organization [employer] Address [address] [place] [address] 7 [place] [address] Care Team Providers Care Minute Clerk Name Role Phone Earlene Beck MD Primary Care Provider [phone] Reason for Visit * Reason Comments Med Refill Encounter Details Date Type Department Care Team (Late Contact Info) Description 01/07/2023 Refill [facility] [address] [place], [place] [phone] Marie Reeves MD [address] [place], [place] [phone] Osteoarthritis of multiple joints, unspecified osteoarthritis type [...] Description 05/09/2025 1:00 PM EST Office Visit [facility] [address] [place], [place] [phone] Clarisa Rosas, OD [address] [place] [address] documented as of this encounter Visit Diagnoses Diagnosis Osteoarthritis of multiple joints, unspecified osteoarthritis type documented in this encounter Care Teams Minute Clerk Relationship Specialty Start Date End Date Earlene Beck MD [address] [place] [phone] PCP - General Family Medicine 02/26/20 documented as of this encounter
--- OUTSIDE RECORDS SUMMARY | 2025-01-10 16:31 | XMS_ITS | Encounter Summary ---
Author Organization [employer] Address [address] [facility] 7t [place] [address] Care Team Providers Care Landscape Contractor Name Role Phone Earlene Beck MD Primary Care Provider [phone] Encounter Details Date Type Department Care Team ([facility] st Contact Info) Description 01/06/2025 Telephone [facility] [address] [place] [address] Earlene Beck MD [address] [place], [place] [phone] Social History Tobacco Use Types Packs/Day Years [...] encounter Miscellaneous Notes * Telephone Encounter - [facility] - 01/06/2025 1:29 PM EDT Pharmacy [facility] attempted outreach call on 01/06/25 for CDTM - Diabetes appointment; however, unable to reach patient. LVM for patient to contact [facility] at [phone]. documented in this encounter Plan of Treatment Upcoming Encounters Date Type Department Care Team (Late st Contact Info) Description 05/09/2025 1:00 PM EST Office Visit [facility] [address] [place] [address] Ralph, Clarisa, OD [address] [place] [address] documented as of this encounter Visit Diagnoses Not on filedocumented in this encounter Additional Health Concerns Assessment Noted Time PHQ-9 Depression Total Score: 4 08/29/19 25 10:26 AM EDT documented as of this encounter Care Teams Landscape Contractor Relationship Specialty Start Date End Date Earlene Beck MD [address] [place] [address] PCP - General Family Medicine 02/26/20 documented as of this encounter
--- OUTSIDE RECORDS SUMMARY | 2025-01-10 16:31 | XMS_ITS | Encounter Summary ---
Author Organization [employer] Address [address] [place] [address] 7 [place] [address] Care Team Providers Care Quarantine Officer Name Role Phone Earlene Beck MD Primary Care Provider [phone] Reason for Visit * Reason Comments Med Refill Encounter Details Date Type Department Care Team (Late Contact Info) Description 01/10/2023 Refill [facility] [address] [place], [place] [phone] Marie Reeves MD [address] [place] [address] Irritable bowel syndrome with diarrhea Social History [...] Description 05/09/2025 1:00 PM EST Office Visit [facility] [address] [place], [place] [phone] Clarisa Rosas, OD [address] [place] [address] documented as of this encounter Visit Diagnoses Diagnosis Irritable bowel syndrome with diarrhea Irritable bowel syndrome documented in this encounter Care Teams Quarantine Officer Relationship Specialty Start Date End Date Earlene Beck MD [address] [place] [phone] PCP - General Family Medicine 02/26/20 documented as of this encounter
--- OUTSIDE RECORDS SUMMARY | 2025-01-10 16:31 | XMS_ITS | Clinical Summary ---
Author Organization [address] [facility] Address [address] [place] [address] Phone Care Team Providers Care Medical Sales Representative Name Role Phone Earlene Beck MD Primary Care Provider [phone] Allergies Active Allergy Reactions Criticality Noted Date Comments Naproxen 03/25/2024 Active Problems Problem Noted Date Diagnosed Date Diabetic neuropathy, type II diabetes mellitus ([facility], [facility] V28) 03/18/2024 Long-term insulin use in typ e 2 diabetes ([facility], [facility] V28) 03/18/2024 Seizure ([facility], [facility]) 03/18/2024 COPD (chronic obstructive pu lmonary disease) ([facility], [facility]) 03/18/2024 Encounters Date Type Department Care Team Description 10/10/2024 1:00 PM EDT Office Visit [facility] [place] [address] [phone] Oracio Smalls, DPM Dermatophytosis of nail (Primary Dx); Diabetic mononeuropathy simplex ([facility], [facility] V28); Tinea pedis of both feet from [...] PM EDT Office Visit [facility] [place] [address] [phone] Oracio Smalls, DPM [address] [phone] Health Maintenance Due Date Last [...] patient's age to complete this topic Insurance [facility] MEDICARE Member Subscriber Plan / Payer (Ef fective 2016-Present) Name:PEYTON SALDAÑA Relation to Subscriber:Self Name:Peyton Saldaña Payer ID:[id number] Group ID:[id number] Type:Not on file Address: [place] [facility] [place]ENE[place] [id number] Care Teams Medical Sales Representative Relationship Specialty Start Date End Date Earlene Beck MD [address] [place] [phone] PCP - General 12/27/23
--- OUTSIDE RECORDS SUMMARY | 2025-01-10 16:31 | XMS_ITS | Encounter Summary ---
Author Organization [email or web address] Address [address] [facility] 7t [place] [address] Care Team Providers Care Cost Recovery Technician Name Role Phone Earlene Beck MD Primary Care Provider [phone] Encounter Details Date Type Department Care Team ([facility] st Contact Info) Description 04/29/2024 Orders Only [facility] [address] [place] [address] ProviderKat MD Social History Tobacco Use Types [...] Description 05/09/2025 1:00 PM EST Office Visit [facility] OPT[facility] [address] [place] [address] Ralph, Clarisa, OD [address] [place] [address] documented as of this encounter Procedures Procedure Name Priority Date/Time Associated Diagnosis Comments HEMOGLOBIN A1C Routine 04/10/2024 9:26 AM EST documented in this encounter Results * Hemoglobin A1c (04/10/2024 9:26 AM EST) Blood Venous blood specimen / Unknown us Historical Provider LAB BLOOD ORDERABLES Yasmeen l Result documented in this encounter Visit Diagnoses Not on filedocumented in this encounter Care Teams Cost Recovery Technician Relationship Specialty Start Date End Date Earlene Beck MD [address] [place] [address] PCP - General Family Medicine 02/26/20 documented as of this encounter
--- OUTSIDE RECORDS SUMMARY | 2025-01-10 16:31 | XMS_ITS | Encounter Summary ---
Author Organization [employer] Address [address] [facility] [address]t [place] [address] Care Team Providers Care Materials Planner Name Role Phone Earlene Beck MD Primary Care Provider [phone] Reason for Visit * Reason Comments Med Refill Encounter Details Date Type Department Care Team ([facility] st Contact Info) Description 09/19/2024 Refill [facility] [address] [place], [place] [phone] Earlene Beck MD [address] [place] [address] Osteoarthritis of multiple joints, unspecified osteoarthritis type [...] Description 05/09/2025 1:00 PM EST Office Visit [facility] [address] [place] [address] Clarisa Rosas, OD [address] [place] [address] documented as of this encounter Visit Diagnoses Diagnosis Osteoarthritis of multiple joints, unspecified osteoarthritis type documented in this encounter Additional Health Concerns Assessment Noted Time PHQ-9 Depression Total Score: 4 08/29/19 25 10:26 AM EDT documented as of this encounter Care Teams Materials Planner Relationship Specialty Start Date End Date Earlene Beck MD [address] [place] [address] PCP - General Family Medicine 02/26/20 documented as of this encounter
== END 2025-01-10 16:33 | disposition home or self-care (01) ==
LOC: HO.HGI 13:40
PROVIDERS: PCP Student in an Organized Health Care Education/Training Program; Visit Provider Nurse Practitioner
DX: R10.11 Right upper quadrant pain (principal); R63.4 Abnormal weight loss; K31.84 Gastroparesis; E11.65 Type 2 diabetes mellitus with hyperglycemia
CPT/HCPCS: 99214

== ENCOUNTER 2025-01-10 13:39 | Outpatient (REF) | payer OTHER, SELFPAY ==
[2025-01-10 15:05] LABS: MANUAL DIFF FLAG NO
[2025-01-10 15:25] LABS: Hematocrit 42.1 % (42.0-52.0); Hemoglobin 13.5 g/dl (14.0-18.0); Imm Gran Abs Auto 0.02 X10*3/uL (0.00-0.03); Imm Gran Pct Auto 0.2 % (0.0-0.4); Lymphocytes Absolute Auto 2.4 X10*3/uL (1.2-4.9); Mean Corpuscular HGB Conc 32.1 g/dl (31.0-36.0); Mean Corpuscular Hemoglobin 27.4 pg (27.0-33.0); Mean Corpuscular Volume 85.4 fL (80.0-98.0); NRBC Abs Auto 0.000 X10*3/uL (0.0-0.012); NRBC Pct Auto 0.0 /100WBC (0.0-0.2); Platelet Count 145 X10*3/uL (160-400); Red Blood Count 4.93 X10*6/uL (4.60-5.80); White Blood Count 9.3 X10*3/uL (4.8-10.8)
[2025-01-10 16:00] LABS: Alanine Aminotransferase 11 U/L (0-40); Albumin Level 4.4 g/dL (3.5-5.0); Alkaline Phosphatase 83 U/L (39-117); Anion Gap 10 (12-20); Aspartate Amino Transferase 13 U/L (5-37); Blood Urea Nitrogen 17 mg/dL (9-16); Calcium 8.9 mg/dL (8.4-10.2); Carbon Dioxide 31 mmol/L (22-29); Chloride 106 mmol/L (96-108); Estimated Glomerular Filt Rate > 60; Potassium 4.2 mmol/L (3.3-5.1); Sodium 143 mmol/L (135-145); Total Protein 6.7 g/dL (6.5-8.0)
[2025-01-10 17:27] LABS: Free T4 (Free Thyroxine) 1.00 ng/dL (0.71-1.85)
== END 2025-01-10 13:40 | disposition home or self-care (01) ==
LOC: HO.LAB 13:39
PROVIDERS: PCP Student in an Organized Health Care Education/Training Program; Visit Provider Nurse Practitioner
DX: Z01.818 Encounter for other preprocedural examination (principal); Z12.11 Encounter for screening for malignant neoplasm of colon; E11.65 Type 2 diabetes mellitus with hyperglycemia; K21.9 Gastro-esophageal reflux disease without esophagitis; E11.42 Type 2 diabetes mellitus with diabetic polyneuropathy; R63.4 Abnormal weight loss; K31.84 Gastroparesis; Z79.4 Long term (current) use of insulin
CPT/HCPCS: 36415; 80053; 84439; 84443; 85025; 99212

== ENCOUNTER 2025-04-16 15:07 | Outpatient (AMB) | payer OTHER, SELFPAY ==
--- NOTE | 2025-04-16 15:09 | MHC.OFFVIS ---
Vital Signs 04/16/25 15:16 Height 5 ft 9 in Weight 139 lb BMI 20.5 BP 128/84 Blood Pressure Location Rt brachial Position Sitting Pulse 85 Intake Visit Reasons: Gastroparesis Intake Note: Aravind presents in office today in follow up of gastroparesis. CC: Patient reports that he is not having much appetite. Pt also reports occasional diarrhea. Fiberglass Container Winding Operator Required: No Accompanied by: Self / Same As Patient Allergies naproxen (From NAPROSYN) Allergy (Mild, Verified 04/16/25 15:18) HIVES HPI HPI Gastroparesis: Details: Assessment & Plan (1) GERD (gastroesophageal reflux disease): Code(s): K21.9 - Gastro-esophageal reflux disease without esophagitis Category: Medical (2) Gastroparesis: Code(s): K31.84 - Gastroparesis Category: Medical (3) Right flank pain: Code(s): R10.9 - Unspecified abdominal pain Category: Medical (4) Diabetes type 2, uncontrolled: Comment: 12/19/2024 HbA1c= 8.2% Code(s): E11.65 - Type 2 diabetes mellitus with hyperglycemia Category: Medical Qualifiers: Glycemic state: with hyperglycemia Qualified Code(s): E11.65 - Type 2 diabetes mellitus with hyperglycemia (5) Pre-op examination: Code(s): Z01.818 - Encounter for other preprocedural examination Category: Medical Plan Swiss # daughter translates per patient request He is here today with his daughter who is his primary merchant mill utility worker. - The patient is a 59-year-old male presenting with concerns of unintentional weight loss. - Noted to have lost weight from 150 pounds to 135 pounds. - Reports a lack of appetite and abdominal pain at night, occasionally waking from sleep. - Recently started on metoclopramide 5 mg 4 times a day, with minimal improvement in symptoms; dosage increase planned. - Current diabetes management deemed insufficient, with Hemoglobin A1c greater than 9, prompting discussion of potential endocrinology referral. He was recently started on Januvia about a month ago. - Gastrointestinal medication regimen includes dicyclomine and esomeprazole for symptom management. - Diarrhea reported twice a week, with formed bowel movements on other days. - we are going to be getting some new labs including a repeat of his A1c to see if it is coming down, a thyroid to see if this is a contributing factor to his weight loss and a colonoscopy/EGD. He is due for colonoscopy because he needed a 1-2 year repeat due to poor prep in the past. I have also generate a referral to endocrinology as he may be a particularly brittle diabetic. We are increasing his Reglan to 10 mg 4 times a day. Return office visit in 3 weeks Orders: Orders Complete Blood Count Auto Diff Today E11.65 - Type 2 diabetes mellitus with hyperglycemia, Z01.818 - Encounter for other preprocedural examination Comprehensive Met. Panel Today E11.65 - Type 2 diabetes mellitus with hyperglycemia, Z01.818 - Encounter for other preprocedural examination TSH reflex Free T4 Today E11.65 - Type 2 diabetes mellitus with hyperglycemia, Z01.818 - Encounter for other preprocedural examination Referrals GI Procedure Notification R63.4 - Abnormal weight loss Endocrinology Referral E11.65 - Type 2 diabetes mellitus with hyperglycemia Medications: New metoclopramide HCl (Reglan) 10 mg PO QIDACHS 120 tabs 6RF peg 3350-electrolytes 236-22.74-6.74 -5.86 gram (Golytely) until fecal effluent is clear; do not exceed a total volume of 2,000 mL 240 mL PO Q10M 4,000 mL 0RF 1 day Z12.11 - Encounter for screening for malignant neoplasm of colon bisacodyl (Dulcolax (bisacodyl)) 10 mg (2 x 5 mg) PO BEDTIME 4 tabs 0RF 2 days Discontinued metoclopramide HCl (Reglan) Discontinued Reason: Doctor's Order 5 mg PO QIDACHS 120 tabs 6RF LABS: Laboratory Tests 01/10/25 15:04 WBC 9.3 Hgb 13.5 L Hct 42.1 Plt Count 145 L Estimated GFR > 60 Total Bilirubin 0.4 AST 13 ALT 11 Alkaline Phosphatase 83 TSH 0.28 L Free T4 1.00 EGD/COLONOSCOPY BIOPSY TODAY'S VISIT Swiss #[id number] [facility] Medical History Diabetes mellitus Encounter for preoperative pulmonary examination Dysfunction of right rotator cuff Back pain Takotsubo cardiomyopathy Bilateral shoulder pain Irritable bowel syndrome with diarrhea Periumbilical abdominal pain Diarrhea Preop cardiovascular exam Long-term insulin use in type 2 diabetes Diabetes type 2, uncontrolled Tobacco abuse Sleep apnea Myocardial infarction BPH (benign prostatic hyperplasia) Depression Thrombocytopenia Alcohol abuse Peripheral neuropathy COPD (chronic obstructive pulmonary disease) Seizures Essential hypertension Hyperlipidemia LDL goal <70 Type 2 diabetes mellitus with diabetic polyneuropathy Surgical History Status post right rotator cuff repair Status post chest tube placement H/O cardiac catheterization Hx of shoulder surgery History of esophagogastroduodenoscopy (EGD) H/O colonoscopy History of arthroscopic surgery of shoulder Hx of hernia repair Hx of pneumonectomy Hx of knee surgery Family History Father Cancer Diabetes Mother CVD (cardiovascular disease) Social History Household Members: Spouse Alcohol intake: never Patient Tobacco Use Status: Former Tobacco user Tobacco use type: Cigarette Years Smoked: 40 Current occupational status: unemployed Current occupation: Right Handed Physical Exam Vital Signs: Last Vital Signs Pulse 85 04/16/25 15:16 BP 128/84 04/16/25 15:16 BMI result Body Mass Index 20.5 Assessment & Plan Assessment & Plan (1) Gastroparesis: Code(s): K31.84 - Gastroparesis Category: Medical (2) GERD (gastroesophageal reflux disease): Code(s): K21.9 - Gastro-esophageal reflux disease without esophagitis Category: Medical (3) Weight loss: Code(s): R63.4 - Abnormal weight loss Category: Medical Plan Swiss #[id number] His current GI regimen is dicyclomine, famotidine, esomeprazole 40 mg and Reglan 10 mg 4 times a day. With increasing the Reglan from 5-10 mg he now feels like he is doing well. He has gained about 3 lb since I last saw him so this is good and he feels like he is eating better. He also continues with good control of his GERD, in fact better control now with the gastroparesis is controlled, on his as omeprazole and famotidine. EGD/COLONOSCOPY 05/15/2025 BIOPSY Kee4p 05/28 appt Coding Level of Care Code Est Pt Level 3 (95183) Diagnoses Gastroparesis K31.84 GERD (gastroesophageal reflux disease) K21.9 Weight loss R63.4
[2025-04-16 15:16] VITALS: BP 128/84; PULSE 85; BMI 20.5
--- OUTSIDE RECORDS SUMMARY | 2025-04-16 20:04 | XMS_ITS | Data Portability ---
Author Organization [employer], [facility] Address [address] [place] [address] Care Team Providers Care Port Steward Name Role Phone Unavailable Referring Provider [facility] Referring Provider Assessment Encounter Date Assessment Date Assessment LastModified by Organization Details LastModified Time 08/23/2022 08/23/2022 I have reviewed and agree with the Assessment and Plan as documented by the Sharemilker. I provided real-time medical direction via phone [...] rate Body temperature Heart rate Oxygen saturation Heart rate Body temperature Oxygen saturation Respiratory rate Body temperature Respiratory rate Heart rate Oxygen saturation Provider Name and Address Organization Details Last Updated DateTime 3 20 /min 98.3 [degF] 88 /min 98 % 88 /min 98.3 [degF] 98 % 20 /min 98.3 [degF] 20 /min 88 /min 98 % Not Available [employer] - production 16:41:52 Date Recorded Systolic And Diastolic Systolic And Diastolic Systolic And Diastolic Provider Name and Address Organization Details Last Updated DateTime 08/23/2022 144/90 mm[Hg] 144/90 mm[Hg] 144/90 mm[Hg] Not Available [employer] - production 08/23/2022 16:41:52 Social History None recorded. Functional Status None recorded. Mental Status None recorded. Family History Nothing Reported. Medical History No medical history recorded. Past Encounters Encounter ID Performer Location Encounter Start Date Encounter Closed Date Diagnosis/Indication Diagnosis SNOMED-CT Code Diagnosis ICD10 Code Diagnosis IMO Codes Diagnosis Note [id number] Theodore Yun MD [facility] - [facility] [address] [place] [id number] [id number] 08/23/2022 13:24:48 08/25/2022 11:38:02 Cough 26408842 R05.9 Health Concerns Section Related Observation LastModified by Organization Detai ls LastModified Time None Recorded Concern Status LastModified by Organization Details LastModified Time None Recorded Advance Directives Directive None Recorded Payers Insurance Date Sequence Insurance Name Policy Number Policy Ford Covered Member ID Ford Member ID Guarantor Name 06/25/2023 1 [facility] - [facility] PRIOR TO 2022 - DUAL ELIGIBLE (MEDICARE REPLACEMENT/AD VANTAGE - HMO) Aravind Mosqueda [id number] Aravind Mosqueda 06/25/2023 1 [facility] - DOS ON OR AFTER 2022 - DUAL ELIGIBLE - HALF-WAY OPTIONS AND ONE CARE (MEDICARE REPLACEMENT/AD VANTAGE - HMO) Aravind Mosqueda [id number] Aravind Mosqueda Notes Date Note Type Note [...] .................. .................. .................. .................. .................. .................. ............... Sharemilker Note From Jory Yoon: Community Sharemilker Earlene Yoon SC6 [facility] 57 yom C/O a [...] ............... Disposition: Fulfilled Theodore Yun MD [address], [place], [address], [employer] - [employer] KATHY 08/23/2022 17:10:22
== END 2025-04-16 16:05 | disposition home or self-care (01) ==
LOC: HO.HGI 15:08
PROVIDERS: PCP Student in an Organized Health Care Education/Training Program; Visit Provider Nurse Practitioner
DX: K31.84 Gastroparesis (principal); K21.9 Gastro-esophageal reflux disease without esophagitis; R63.4 Abnormal weight loss
CPT/HCPCS: 99213

== ENCOUNTER → 2025-04-16 15:07 | Outpatient (BNVA) | payer OTHER, SELFPAY | PROVIDERS: PCP Student in an Organized Health Care Education/Training Program; Visit Provider Nurse Practitioner | DX: K31.84 Gastroparesis (principal); K21.9 Gastro-esophageal reflux disease without esophagitis; R63.4 Abnormal weight loss; Z87.891 Personal history of nicotine dependence; Z68.20 Body mass index [BMI] 20.0-20.9, adult | CPT/HCPCS: 99212 ==

== ENCOUNTER 2025-04-30 10:04 | Outpatient (AMB) | payer OTHER, SELFPAY ==
[2025-04-30 10:17] VITALS: BMI 20.5
--- NOTE | 2025-04-30 10:17 | MHC.OFFVIS ---
Vital Signs 04/30/25 10:17 Height 5 ft 9 in Weight 139 lb BMI 20.5 Intake Visit Reasons: OV-LT RF trigger Intake Note: Aravind 59 yr old left hand dominant male presents today for his follow up visit for his Left middle trigger finger S/P trigger injection done with Dr Esquivel on 12/31/24. Patient states he would like to move forwardc with surgery for his trigger finger. A1C done 03/11/25 - 7.5. Allergies naproxen (From NAPROSYN) Allergy (Mild, Verified 04/30/25 10:20) HIVES HPI HPI OV-LT RF trigger: Details: Aravind is a 59 year old right hand dominant Diabetic Telugu speaking man who returns for his left ring trigger finger They complains of painful locking & catching of his left ring finger. He says this primarily occurs at night. He found no relief form his injection on 12/31/24 They has a Hx of a left middle trigger finger release, DOS: 06/19/24, with good relief & no complaints They denies any numbness today in clinic and says their sensation is normal today. They have a Hx of DM, AK, COPD, smoking, ETOH abuse, & Depression. Last HgA1c was 7.5% on 03/11/25 [facility] Medical History Diabetes mellitus Encounter for preoperative pulmonary examination Dysfunction of right rotator cuff Back pain Takotsubo cardiomyopathy Bilateral shoulder pain Irritable bowel syndrome with diarrhea Periumbilical abdominal pain Diarrhea Preop cardiovascular exam Long-term insulin use in type 2 diabetes Diabetes type 2, uncontrolled Tobacco abuse Sleep apnea Myocardial infarction BPH (benign prostatic hyperplasia) Depression Thrombocytopenia Alcohol abuse Peripheral neuropathy COPD (chronic obstructive pulmonary disease) Seizures Essential hypertension Hyperlipidemia LDL goal <70 Type 2 diabetes mellitus with diabetic polyneuropathy Surgical History Status post right rotator cuff repair Status post chest tube placement H/O cardiac catheterization Hx of shoulder surgery History of esophagogastroduodenoscopy (EGD) H/O colonoscopy History of arthroscopic surgery of shoulder Hx of hernia repair Hx of pneumonectomy Hx of knee surgery Family History Father Cancer Diabetes Mother CVD (cardiovascular disease) Social History Household Members: Spouse Alcohol intake: never Patient Tobacco Use Status: Former Tobacco user Tobacco use type: Cigarette Years Smoked: 40 Current occupational status: unemployed Current occupation: Right Handed Physical Exam Vital Signs: BMI result Body Mass Index 20.5 Const General: no acute distress and alert Orientation/consciousness: patient oriented x3 Neuro General: patient oriented x3 Extrem Other: Evaluation of Left Upper Extremity: The patient is alert, oriented, and in no acute distress Neuro: Median, Ulnar, Radial nerves motor and sensory intact and sensation is normal to the tips of all digits Vascular: Cap refill brisk ROM: He can make a fist and extend all his digits No locking or catching of the ring finger seen today Tender over the ring finger a1 johnna Psych Appearance: grossly normal Affect: normal affect Attitude: cooperative Assessment & Plan Assessment & Plan (1) Trigger finger, left ring finger: Code(s): M65.342 - Trigger finger, left ring finger Category: Medical Plan Assessment & Plan: 1. Left ring finger trigger finger, S/P injection Date of injection: 12/31/24 I educated them about this condition I discussed operative and non-operative treatment options The patient would like to proceed with surgery The risks and benefits of operative treatment were discussed with the patient and the patient wishes to proceed with surgery. These risks include, but are not limited to risk of damage to blood vessels, nerves, tendons, infection, recurrence, incomplete relief of preoperative symptoms, persistent pain, possible need for further surgery and the risks associated with regional blocks and anesthesia. The plan is to take the patient to the operating room sometime in the next few weeks for the following procedures: 1. Left ring finger trigger release, under local All of the preoperative paperwork including the consent was reviewed today. All the patient's questions were answered. The patient understands that they will be contacted by our golf cart assembler soon to schedule this procedure He denies blood thinners, asthma, heart, lung, kidney issues He is a Diabetic, his most recent HgA1c was 7.5% on 03/11/25 2. Left middle finger trigger finger, S/P release DOS: 06/19/24 Resolved Scribed for Shireen Esquivel MD by Juan Khanna medical office assistant instructor, on 04/30/25 at 10:25 AM, EST. Coding Level of Care Code Est Pt Level 4 (06290) Diagnoses Trigger finger, left ring finger M65.342
--- OUTSIDE RECORDS SUMMARY | 2025-04-30 11:03 | XMS_ITS | Encounter Summary ---
Author Organization [employer] Address [address] [facility] [address] [place] [address] Care Team Providers Care Commodities Clerk Name Role Phone Earlene Bcek MD Primary Care Provider [phone] Estela Warren PharmD Unavailable [phone] Emelina Carmona MD Primary Care Provider [phone] Reason for Visit * Reason Comments Med Refill Encounter Details Date Type Department Care Team ([facility] st Contact Info) Description 08/26/2024 Refill [facility] CHC MED & PEDS [address], [place] [phone] Earlene Beck MD [address] [place] [address] Type 2 diabetes mellitus with diabetic polyneuropathy [...] 05/09/2025 1:00 PM EST Office Visit [facility] OPTOMETRY [address] [place] [address] Clarisa Rosas, OD [address] [place] [address] 06/26/2025 2:00 PM EST Office Visit [facility] CHC MED & PEDS [address] [place] [address] Emelina Carmona MD [address] [place] [address] documented as of this encounter Visit Diagnoses Diagnosis Type 2 diabetes mellitus with diabetic polyneuropathy (HCC) documented in this encounter Care Teams Commodities Clerk Relationship Specialty Start Date End Date Earlene Beck MD [address] [place] [address] PCP - General Family Medicine 02/26/20 02/25/25 Emelina Carmona MD [address] [place] [address] PCP - General Family Medicine 02/26/25 Estela Warren, Laurence [address] [place] [address] Pharmacist Pharmacy 02/07/25 documented as of this encounter
--- OUTSIDE RECORDS SUMMARY | 2025-04-30 11:03 | XMS_ITS | Encounter Summary ---
Author Organization [employer] Address [address] [place] [address] 7[address] [place] [address] Care Team Providers Care Security Team Lead Name Role Phone Earlene Beck MD Primary Care Provider [phone] Estela Warren PharmD Unavailable [phone] Emelina Carmona MD Primary Care Provider [phone] Reason for Visit * Reason Comments Med Refill Encounter Details Date Type Department Care Team (Late Contact Info) Description 05/12/2022 Refill [facility] MED & PEDS [address] [place], [place] [phone] Earlene Beck MD [address] [place] [address] Irritable bowel syndrome with diarrhea; Gastro-esophageal reflux [...] 05/09/2025 1:00 PM EST Office Visit [facility] OPTOMETRY [address] [place], [place] [phone] Ralph, Clarisa, OD [address] [place], [place] [phone] 06/26/2025 2:00 PM EST Office Visit [facility] MED & PEDS [address] [place] [address] Emelina Carmona MD [address] [place] [address] documented as of this encounter Visit Diagnoses Diagnosis Irritable bowel syndrome with diarrhea Irritable bowel syndrome Gastro-esophageal reflux disease without esophagitis documented in this encounter Care Teams Security Team Lead Relationship Specialty Start Date End Date Earlene Beck MD [address] [place] [address] PCP - General Family Medicine 02/26/20 02/25/25 Emelina Carmona MD [address] [place] [address] PCP - General Family Medicine 02/26/25 Estela Warren PharmD [address] [place] [address] Pharmacist Pharmacy 02/07/25 documented as of this encounter
--- OUTSIDE RECORDS SUMMARY | 2025-04-30 11:03 | XMS_ITS | Encounter Summary ---
Author Organization [employer] Address [address] [place] [address] [address] [place] [address] Care Team Providers Care Machinery Mechanic Name Role Phone Earlene Beck MD Primary Care Provider [phone] Estela Warren PharmD Unavailable [phone] Emelina Carmona MD Primary Care Provider [phone] Reason for Visit * Reason Comments Med Refill Encounter Details Date Type Department Care Team (Late Contact Info) Description 05/12/2022 Refill [facility] CHC MED & PEDS [address] [place], [place] [phone] Earlene Beck MD [address] [place] [address] Irritable bowel syndrome with diarrhea; Type 2 diabetes mellitus without complications ([facility]) Social History Tobacco Use Types Packs/Day Years [...] Description 05/09/2025 1:00 PM EST Office Visit [facility] OPTOMETRY [address] [place], [place] [phone] Clarisa Rosas, OD [address] [place], [place] [phone] 06/26/2025 2:00 PM EST Office Visit [facility] CHC MED & PEDS [address] [place] [address] Emelina Carmona MD [address] [place] [address] documented as of this encounter Visit Diagnoses Diagnosis Irritable bowel syndrome with diarrhea Irritable bowel syndrome Type 2 diabetes mellitus without complications (HCC) documented in this encounter Care Teams Machinery Mechanic Relationship Specialty Start Date End Date Earlene Beck MD [address] [place] [address] PCP - General Family Medicine 02/26/20 02/25/25 Emelina Carmona MD [address] [place] [address] PCP - General Family Medicine 02/26/25 Estela Warren, BrinaD [address] [place] [address] Pharmacist Pharmacy 02/07/25 documented as of this encounter
--- OUTSIDE RECORDS SUMMARY | 2025-04-30 11:04 | XMS_ITS | Encounter Summary ---
Author Organization [employer] Address [address] [facility] [address] [place] [address] Care Team Providers Care Central Aisle Cashier Name Role Phone Earlene Beck MD Primary Care Provider [phone] Estela Warren PharmD Unavailable [phone] Emelina Carmona MD Primary Care Provider [phone] Reason for Visit * Reason Onset Date Comments Lab Orders 02/22/2024 Encounter Details Date Type Department Care Team (Late st Contact Info) Description 02/22/2024 Telephone [facility] MEDICINE [address] [place] [address] Earlene Beck MD [address] [place] [address] Lab Orders Social History Tobacco Use Types [...] 1:00 PM EST Office Visit [facility] OPTOMETRY [address] [place] [address] Clarisa Rosas, OD [address] [place] [address] 06/26/2025 2:00 PM EST Office Visit [facility] CHC MED & PEDS [address] [place] [address] Emelina Carmona MD [address] [place] [address] documented as of this encounter Visit Diagnoses Not on filedocumented in this encounter Care Teams Central Aisle Cashier Relationship Specialty Start Date End Date Earlene Beck MD [address] [place] [address] PCP - General Family Medicine 02/26/20 02/25/25 Emelina Carmona MD [address] [place] [address] PCP - General Family Medicine 02/26/25 Estela Warren, BrianD [address] [place] [address] Pharmacist Pharmacy 02/07/25 documented as of this encounter
--- OUTSIDE RECORDS SUMMARY | 2025-04-30 11:04 | XMS_ITS | Clinical Summary ---
Author Organization [facility] Address [address] [place] [address] Phone Care Team Providers Care Trouble Locater Name Role Phone Earlene Beck MD Primary Care Provider [phone] Allergies Active Allergy Reactions Criticality Noted Date Comments Naproxen 03/25/2024 Medications acetaminophen (TYLENOL) 500 mg tablet Take 1 tablet (500 mg total) by mouth every 8 (eight) hours if needed. 5 Active Alcohol Prep Pads pads, medicated USE THREE DAILY Acti ve ammonium lactate (LAC-HYDRIN) 12 % lotion APPLY ON FEET ONCE DAILY 3 Active atorvastatin (LIPITOR) 80 mg tablet take one tablet every night at bedtime Active bisacodyL (DULCOLAX) 5 mg EC tablet TAKE TWO TABLETS AT BEDTIME FOR TWO DAYS 5 Active FreeStyle Hetal 3 Plus Sensor device USE TO TEST BLOOD SUGAR AND CHANGE EVERY 15 DAYS 5 Active FreeStyle Hetal 3 Roscoe misc USE ONCE DAILY TO TEST BLOOD SUGAR 5 Active carvediloL (COREG) 12.5 mg tablet TAKE ONE TABLET TWICE DAILY IN THE MORNING AND AT BEDTIME Active cholecalciferol (VITAMIN D-3) 50 mcg (2,000 unit) capsule Take 1 capsule (2,000 Units total) by mouth 1 (one) time each day in the morning. Active clotrimazole (LOTRIMIN) 1 % cream Apply 1 Application topically 2 (two) times a day. 5 Active Farxiga 10 mg tablet Take 1 tablet (10 mg total) by mouth 1 (one) time each day in the morning. Active diclofenac (VOLTAREN) 75 mg EC tablet TAKE ONE TABLET TWICE DAILY NEEDED FOR PAIN 4 Active FreeStyle Hetal 2 Sensor kit USE DIRECTED AND CHANGE EVERY 14 DAYS 5 Active T[place]ka SoloStar U-300 Insulin 300 unit/mL (1.5 mL) CONCENTRATED injection pen Inject 20 Units under the skin. at bedtime Active IBU 800 mg tablet Take 1 tablet (800 mg total) by mouth every 8 (eight) hours if needed. 5 Active metFORMIN (GLUCOPHAGE) 1,000 mg tablet TAKE ONE TABLET IN THE MORNING AND EVENING Active metoclopramide (REGLAN) 10 mg tablet 5 Active mirtazapine (REMERON) 45 mg tablet take one tablet every night at bedtime Active oxyBUTYnin (DITROPAN) 5 mg tablet TAKE ONE TABLET TWICE DAILY IN THE MORNING AND AT BEDTIME Active polyethylene glycol (GoLYTELY) 236-22.74-6.74 -5.86 gram solution MIX DIRECTED AND DRINK EVERY 10 MINUTES DIRECTED, DO NOT EXCEED 2000ml's (ONE-HALF BOTTLE) 5 Active Carri Pen Needle 32 gauge x 5/32 needle 1 (one) time each day. 5 Active sertraline (ZOLOFT) 100 mg tablet TAKE ONE TABLET EVERY MORNING WITH 50mg TABLET Active Anoro Ellipta 62.5-25 mcg/actuation inhaler INHALE 1 PUFF DAILY AT THE SAME TIME EACH DAY Active Active Problems Problem Noted Date Diagnosed Date Diabetic neuropathy, type II diabetes mellitus 1 05/18/2023 Long-term insulin use in type 2 diabetes 024 Seizure 03/18/2024 COPD (chronic obstructive pulmonary disease) Encounters Date Type Department Care Team Description 03/17/2025 1:30 PM EST Office Visit [facility] [place] [facility] [address] [place] [phone] Oracio Smalls, DPM Dermatophytosis of nail (Primary Dx); Diabetic mononeuropathy simplex (CMS/HCC V24, CMS/HCC V28); Tinea pedis of both feet from [...] Care Team (Late st Contact Info) Description 05/20/2025 1:30 PM EST Office Visit [facility] [address] [address] Oracio Smalls, DPGonzález [address] [address] Health Maintenance Due Date Last Done Comments Colorectal Cancer Screening: Colonoscopy 1965 Diabetes: Annual Foot Exam 1975 Diabetes: Annual Retina Eye Exam 1975 Hepatitis A Vaccines (1 of 2 - Risk 2-dose series) 1984 RSV Immunization Adult Patients (1 - Risk 50-74 years 1-dose series) 2015 Medicare Annual Wellness Visit 02/13/2024 Social Influencers of Health Screening 02/13/2024 Diabetes: Annual Urine Albumin-Creatinine Ratio (uACR) 03/19/2024 Depression Screening 05/01/2024 COVID-19 Vaccine ( season) 2024 03/04/2024, 03/12/2021, 08/31/2020, Additional history exists Diabetes: Blood Sugar Control Test (HGBA1C) 09/08/2025 03/11/2025, 12/19/2024, 07/09/2024, Additional history exists Diabetes: Annual GFR (Glomerular Filtration Rate) 01/10/2026 01/10/2025, 10/08/2024, 04/12/2024 Cholesterol Screening (Lipid Panel) 10/08/2029 10/08/2024, 04/12/2024, 06/28/2023 DTaP,Tdap,and Td Vaccines (5 - Td or Tdap) 02/25/2032 02/24/2022, 12/14/2010, 12/14/2010, Additional history exists MMR Vaccines Aged Out 01/29/2018, 02/10/1998 No lo nger eligible based on patient's age to complete this topic Hepatitis B Vaccines Completed 09/12/2018, 01/29/2018, 01/01/2013 Zoster Vaccines Completed 04/11/2019, 02/08/2019 Pneumococcal Vaccine: 50+ Years Completed 04/11/2024, 01/12/2017, 01/21/2009, Additional history exists HIV Screening Completed 10/08/2024 Hepatitis C Screening Completed 10/08/2024 Influenza Vaccine Completed 02/05/2025, , 02/08/2023, Additional history exists HIB Vaccines Aged Out [...] patient's age to complete this topic Insurance [facility] MEDICARE Member Subscriber Plan / Payer (Ef fective 2016-Present) Name:ARAVIND SALDAÑA Relation to Subscriber:Self Name:Aravind Saldaña Payer ID:[id number] Group ID:[id number] Type:Not on file Address: [place] [address] [address] [id number] Care Teams Trouble Locater Relationship Specialty Start Date End Date Earlene Beck MD [address] [place] [id number] PCP - General 12/27/23
--- OUTSIDE RECORDS SUMMARY | 2025-04-30 11:04 | XMS_ITS | Encounter Summary ---
Author Organization [employer] Address [address] [place] [address] [address] [place] [address] Care Team Providers Care Chairman Ceo Name Role Phone Earlene Beck MD Primary Care Provider [phone] Estela Warren PharmD Unavailable [phone] Emelina Carmona MD Primary Care Provider [phone] Encounter Details Date Type Department Care Team (Latest Contact Info) Description 11/09/2018 Abstract [facility] CONVERSIONS Dental, Provider, DDS Social History [...] Description 05/09/2025 1:00 PM EST Office Visit [facility] OPTOMETRY [address] [place] [address] Clarisa Rosas, OD [address] [place] [address] 06/26/2025 2:00 PM EST Office Visit [facility] [address] [place], [place] [phone] Emelina Carmona MD [address] [place] [address] documented as of this encounter Visit Diagnoses Not on filedocumented in this encounter Care Teams Chairman Ceo Relationship Specialty Start Date End Date Earlene Beck MD [address] [place] [address] PCP - General Family Medicine 02/26/20 02/25/25 Emelina Carmona MD [address] [place] [address] PCP - General Family Medicine 02/26/25 Estela Warren PharmD [address] [place] [address] Pharmacist Pharmacy 02/07/25 documented as of this encounter
--- OUTSIDE RECORDS SUMMARY | 2025-04-30 11:04 | XMS_ITS | Encounter Summary ---
Author Organization [email or web address] Address [address] [place] [address] [address] [place] [address] Care Team Providers Care Industrial Maintenance Technician Name Role Phone Earlene Beck MD Primary Care Provider [phone] Estela Warren PharmD Unavailable [phone] Emelina Carmona MD Primary Care Provider [phone] Reason for Visit * Reason Comments Med Refill Encounter Details Date Type Department Care Team (Late Contact Info) Description 01/10/2023 Refill [facility] MED [facility] PEDS [address] [place], [place] [phone] Marie Reeves MD [address] [place] [address] Irritable bowel syndrome with diarrhea Social History [...] Description 05/09/2025 1:00 PM EST Office Visit [facility] OPTOMETRY [address] [place], [place] [phone] Clarisa Rosas, OD [address] [place], [place] [phone] 06/26/2025 2:00 PM EST Office Visit [facility] PEDS [address] [place] [address] Emelina Carmona MD [address] [place] [address] documented as of this encounter Visit Diagnoses Diagnosis Irritable bowel syndrome with diarrhea Irritable bowel syndrome documented in this encounter Care Teams Industrial Maintenance Technician Relationship Specialty Start Date End Date Earlene Beck MD [address] [place] [address] PCP - General Family Medicine 02/26/20 02/25/25 Emelina Carmona MD [address] [place] [address] PCP - General Family Medicine 02/26/25 Estela Warren, BrianD [address] [place] [address] Pharmacist Pharmacy 02/07/25 documented as of this encounter
--- OUTSIDE RECORDS SUMMARY | 2025-04-30 11:04 | XMS_ITS | Clinical Summary ---
Author Organization [employer] Address [address] [place] [address] Care Team Providers Care Buildings And Grounds Director Name Role Phone Estela Warren PharmD Unavailable [phone] Emelina Carmona MD Primary Care Provider [phone] Allergies Active Allergy Reactions Criticality Noted Date Comments Naproxen 06/11/2013 Medications * This document contains information received from the source organization and may not represent a complete record from that organization. famotidine (Pepcid) 40 MG tabletIndications: Epigastric pain Take 1 tablet (40 mg) by mouth at bedtime. 90 tablet 1 05/24/19 23 Active ammonium lactate (Lac-Hydrin) 12 % lotion APPLY ON FEET ONCE DAILY 226 g 11 09/02/19 23 Active Blood Pressure kitIndications:Britni vated blood pressure reading 1 Units in the morning. 1 kit 11/01/19 23 Active carvedilol (Coreg) 12.5 MG tablet TAKE ONE TABLET TWICE DAILY IN THE MORNING AND AT BEDTIME WITH FOOD 180 tablet 1 05/05/19 24 Active Aspirin Adult Low Strength 81 MG EC tablet TAKE ONE TABLET EVERY MORNING 90 tablet 1 05/05/19 24 Active Diclofenac Sodium 1 % gel APPLY 2 GRAM'S TO AFFECTED AREA(s) TWICE DAILY NEEDED 100 g 3 03/07/20 24 Active esomeprazole (NexIUM) [address] capsuleIndications :Gastroesophageal reflux disease without esophagitis TAKE ONE CAPSULE EVERY MORNING BEFORE BREAKFAST 90 capsule 1 03/13/20 24 Active ipratropium-albute rol (Duo-Neb) 0.5-2.5 mg/3 mL nebulizer solution INHALE ONE AMPULE USING A NEBULIZER EVERY 4 TO 6 HOURS NEEDED FOR WHEEZING 03/26/20 Active Anoro Ellipta 62.5-25 MCG/ACT aerosol powder INHALE 1 PUFF ONCE DAILY. RINSE MOUTH AFTER USE 03/26/20 Active divalproex (Depakote) 500 MG EC tablet Take 500 mg by mouth. 02/09/20 12 Active dapagliflozin (Farxiga) 10 MGIndications:Type 2 diabetes mellitus with diabetic neuropathy, with long-term current use of insulin (HCC) Take 1 tablet (10 mg) by mouth Once per day. 30 tablet 11 5 12:45 PM EST 07/11/19 25 026 Active dicyclomine (Bentyl) 20 MG tabletIndications: Irritable bowel syndrome with diarrhea TAKE ONE TABLET in the morning, at noon, in the evening, and at bedtime 120 tablet 1 07/31/19 25 Active clotrimazole (Lotrimin) 1 % cream apply to the affected area(s) twice daily 06/21/19 25 Active Continuous Glucose Welder Fabricator (FreeStyle Hetal 3 Troy) deviceIndications: Type 2 diabetes mellitus with diabetic neuropathy, with long-term current use of insulin (HCC) 1 each Once per day. Use as directed for CGM 1 each 08/27/19 25 Active Continuous Glucose Sensor (FreeStyle Hetal 3 Plus Sensor) miscIndications:Ty pe 2 diabetes mellitus with diabetic neuropathy, with long-term current use of insulin (HCC) 1 each every 15 days. Apply 1 every 15 days as directed for CGM 2 each 5 9:42 AM EST 08/27/19 25 Active glucose blood (FreeStyle Precision Hardik Test) test strip Use to test blood sugar 2 times daily in case of CGM failure or extremes of BG 100 each 08/27/19 25 026 Active sertraline (Zoloft) 100 MG tablet TAKE ONE TABLET EVERY MORNING WITH 50 MG TABLET 30 tablet 11/14/19 25 Active mirtazapine (Remeron) 45 MG tablet TAKE ONE TABLET EVERY NIGHT AT BEDTIME 30 tablet 11/14/19 25 Active atorvastatin (Lipitor) 80 MG tablet TAKE ONE TABLET EVERY NIGHT AT BEDTIME 30 tablet 11/14/19 25 Active oxybutynin (Ditropan) 5 MG tablet TAKE ONE TABLET TWICE DAILY IN THE MORNING AND AT BEDTIME 60 tablet 11/14/19 25 Active cetirizine (ZyrTEC) 10 MG tablet TAKE ONE TABLET EVERY MORNING 30 tablet 11/14/19 25 Active Easy Touch Lancets 33G/Twist miscIndications:Ty pe 2 diabetes mellitus with diabetic neuropathy, with long-term current use of insulin ([facility]) USE TO TEST BLOOD SUGAR THREE TIMES DAILY 100 each 11/23/19 25 Active sertraline (Zoloft) 50 MG tablet TAKE ONE TABLET EVERY MORNING WITH 100 MG TABLET 30 tablet 11/23/19 25 Active BD Pen Needle Carri Ultrafine 32G X 4 MM misc USE ONE DAILY 100 each 12/15/19 25 Active Alcohol Swabs (Alcohol Prep) 70 % pads USE THREE DAILY 100 each 12/21/19 25 Active Combivent Respimat 20-100 MCG/ACT inhalerIndications :Chronic obstructive pulmonary disease, unspecified COPD type (CMS/HCC) ([facility]) INHALE 1 PUFF 4 TIMES A DAY, MAY TAKE ADDITIONAL PUFFS NEEDED. (MAX 6 PUFFS PER DAY) 12 g 1 01/17/20 25 Active gabapentin (Neurontin) 800 MG tabletIndications: Osteoarthritis of multiple joints, unspecified osteoarthritis type TAKE ONE TABLET IN THE MORNING and TAKE TWO TABLETS EVERY DAY AT BEDTIME 90 tablet 01/18/20 25 Active Dulaglutide (Trulicity) 3 MG/0.5ML solution auto-injectorIndic ations:Type 2 diabetes mellitus with diabetic neuropathy, with long-term current use of insulin ([facility]) Inject 3 mg under the skin 1 (one) time per week. 2 mL 2 5 9:42 AM EST 02/08/20 25 Active metoclopramide (Reglan) 10 MG tablet 01/11/20 25 Active metFORMIN (Glucophage) 1000 MG tabletIndications: Type 2 diabetes mellitus with diabetic polyneuropathy ([facility]) TAKE ONE TABLET IN THE MORNING AND EVENING 180 tablet 1 02/19/20 25 Active acetaminophen (Tylenol 8 Hour) 650 MG ER tabletIndications: Osteoarthritis of multiple joints, unspecified osteoarthritis type TAKE 1 TABLET EVERY 8 HOURS NEEDED MILD PAIN 30 tablet 03/11/20 25 Active glucose 4 g chewable tabletIndications: Type 2 diabetes mellitus with diabetic neuropathy, with long-term current use of insulin ([facility]) Chew 4 tablets (16 g) if needed for low blood sugar. 50 tablet 11 03/11/20 25 Active insulin glargine (Toujeo SoloStar) 300 UNIT/ML injectionIndicatio ns:Type 2 diabetes mellitus with diabetic neuropathy, with long-term current use of insulin ([facility]) Inject 12 units subcutaneously every day 4.5 mL 3 03/11/20 25 Active cholecalciferol VITAMIN D (Vitamin D-3) 50 MCG (2000 UT) capsule TAKE ONE CAPSULE EVERY MORNING 90 capsule 3 5 12:44 PM EST 03/19/20 25 Active acetaminophen (Tylenol Extra Strength) 500 MG tablet Take 2 tablets (1,000 mg) by mouth every 8 (eight) hours if needed for mild pain. 90 tablet 5 3:05 PM EST 04/14/20 25 Active Active Problems Problem Noted Date Diagnosed Date Abdominal pain 10/31/2022 Assessment & Plan (10/31/2022 9:41 AM EDT): Advised patient to call to schedule an appointment with GI Dr. Elvi Darling. Hyperkalemia 10/31/2022 Assessment & Plan (10/31/2022 9:41 AM EDT): Patient seen in [facility] on 10/07/22 for abdominal pain with hyperkalemia and elevated eosinophilia indicated by labs. Will repeat labs to recheck levels. Elevated blood pressure reading 10/31/2022 Assessment & Plan (10/31/2022 9:41 AM EDT): Uncontrolled. Will send blood pressure cuff and encouraged consistent monitoring at home. Will scheduled nursing appointment to recheck blood pressure. 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 Date Type Department Care Team Description 04/14/2025 Telephone [facility] MED & PEDS [address] [place] [address] Emelina Carmona MD 04/14/2025 Telephone [facility] MED & PEDS [address] [place] [address] Emelina Carmona MD 04/14/2025 Telephone [facility] MEDICINE [address] [place] [address] Emelina Carmona MD 04/14/2025 Refill [facility] MED & PEDS [address] [place] [address] Emelina Carmona MD Osteoarthritis of multiple joints, unspecified osteoarthritis type 03/18/2025 Refill [facility] MED & PEDS [address] [place] [address] Earlene Beck MD 03/11/2025 Travel 03/10/2025 Telephone [facility] [address] [place] [address] Estela Warren, Laurence 03/10/2025 Refill [facility] PEDS [address] [place] [address] Earlene Beck MD Osteoarthritis of multiple joints, unspecified osteoarthritis type 02/15/2025 Refill [facility] PEDS [address] [place] [address] Earlene Beck MD Type 2 diabetes mellitus with diabetic polyneuropathy (HCC) 02/07/2025 Travel 02/05/2025 Travel 02/04/2025 Refill [facility] PEDS [address] [place] [address] Earlene Beck MD Osteoarthritis of multiple joints, unspecified osteoarthritis type 02/01/2025 Refill [facility] PEDS [address] [place] [address] Earlene Beck MD Type 2 diabetes mellitus with diabetic neuropathy, with long-term current use of insulin (HCC) from Last 3 Months Immunizations Immunization Administration Dates Next Due DTaP 12/14/2010 Hep B, adult 09/12/2018,01/29/2018,01/01/2013 Influenza injectable quadriv alent IIV4 with preservative 01/29/2018,01/19/2017,02/18/2015 Influenza injectable quadriv alent preservative free 02/08/2023,02/24/2022,01/20/2021,02/04,01/23/2019,05/12/2016 Influenza, IIV3, injectable 01/19/2011 Influenza, Injectable, MDCK, preservative free 02/05/2025 Influenza, Split (incl. delvis fied surface antigen) [...] Visit [facility] OPTOMETRY [address] [place] [address] Clarisa Rosas, OD [address] [place] [address] 06/26/2025 2:00 PM EST Office Visit [facility] MED & PEDS [address] [place], [place] [phone] Emelina Carmona MD [address] [place] [address] Health Maintenance Due Date Last Done Comments CT Colonography 1965 FIT DNA/Cologuard 1965 FIT 1965 FOBT 1965 Sigmoidoscopy 1965 Diabetes: Urine Protein Screening 1984 RSV Patients and Patients Aged 60 years or older (1 - Risk 50-74 years 1-dose series) 2015 Diabetes: Foot Exam 09/01/2023 08/31/2022, Colonoscopy 11/28/2024 Colorectal Cancer Screening 11/28/2024 COVID-19 Vaccine ( season) 2024 03/04/2024, 03/12/2021, 08/31/2020, Additional history exists Diabetes: Hemoglobin A1C 06/11/2025 025, 12/19/2024, 07/09/2024, Additional history exists Depression Screening 08/28/2025 08/28/2024, 08/29/19 25 Disability Screening 08/28/2025 08/28/2024 SDOH Screening 08/28/2025 08/28/2024 Lipid Panel 10/08/2025 10/08/2024, 03/31, 06/28/2023, Additional history exists Alcohol/Substance Use Screening 01/02/2026 01/02/2025 Tobacco Screening 01/02/2026 01/02/2025 Eye Exam 04/12/2026 04/12/2024, 03/31, 04/12/2024, Additional history exists DTaP/Tdap/Td Vaccines (4 - Td or Tdap) 02/25/2032 02/24/2022, 12/14/2010, 12/14/2010, Additional history exists Hepatitis B Vaccines Completed 09/12/2018, 01/29/2018, 01/01/2013 Zoster Vaccines Completed 04/11/2019, 02/08/2019 Pneumococcal Vaccine: 50+ Years Completed 04/11/2024, 01/12/2017, 01/21/2009, Additional history exists HIV Screening Completed 10/08/2024 Hepatitis C Screening Completed 10/08/2024, 025 Influenza Vaccine Completed 02/05/2025, , 02/08/2023, Additional [...] on patient's age to complete this topic Goals Goal Patient Goal Type Associated Problems Recent Progress Patient-Stated? Author Help patients manage their type 2 diabetes Care Plan Help patients manage their type 2 diabetes No Contreras Claudio Weekly blood pressure task Care Plan Weekly blood pressure task No Contreras Claudio Help patients manage their type 2 diabetes Care Plan Help patients manage their type 2 diabetes No Contreras Claudio Patient has chronic kidney disease Care Plan Patient has chronic kidney disease No Contreras Claudio Weekly blood pressure task Care Plan Weekly blood pressure task No Contreras Claudio Patient has chronic kidney disease Care Plan Patient has chronic kidney disease No Contreras Claudio Weekly blood pressure task Care Plan Weekly blood pressure task No Freda Geronimo RN Weekly blood pressure task Care Plan Weekly blood pressure task No Freda Geronimo RN Patient has chronic kidney disease Care Plan Patient has chronic kidney disease No Freda Geronimo RN Patient has chronic kidney disease Care Plan Patient has chronic kidney disease No Freda Geronimo RN Weekly blood pressure task Care Plan Weekly blood pressure task No Freda Geronimo RN Weekly blood pressure task Care Plan Weekly blood pressure task No Freda Geronimo RN Patient has chronic kidney disease Care Plan Patient has chronic kidney disease No Freda Geronimo RN Patient has chronic kidney disease Care Plan Patient has chronic kidney disease No Freda Geronimo RN Weekly blood pressure task Care Plan Weekly blood pressure task No Emelina Carmona MD Weekly blood pressure task Care Plan Weekly blood pressure task No Emelina Carmona MD Patient has chronic kidney disease Care Plan Patient has chronic kidney disease No Emelina Carmona MD Patient has chronic kidney disease Care Plan Patient has chronic kidney disease No Emelina Carmona MD Procedures Procedure Name Priority Date/Time Associated Diagnosis Comments POCT GLYCATED HEMOGLOBIN, TOTAL Routine 03/11/2025 3:01 PM EST Type 2 diabetes mellitus with diabetic neuropathy, with long-term current use of insulin (HCC) POCT GLUCOSE (CPT-15912) Routine 03/11/2025 3:01 PM EST Type 2 diabetes mellitus with diabetic neuropathy, with long-term current use of insulin (HCC) HEPATITIS C AB W/REFL TO HCV RNA, [...] to Health Maintenance Results * (ABNORMAL) POCT A1c (03/11/2025 3:01 PM EST) Hemoglobin A1C 7.5(A) 4.0 - 5.7 % QC Media Lot # [id number] Lot# Expiration Date 5,027 Blood 03/11/2025 3:01 PM EST Emelina Carmona MD POINT OF CARE TEST ENTER/EDIT ORDERABLES Final Result * POCT glucose manually resulted (03/11/2025 3:01 PM EST) Pathologist [facility] Glucose Blood, POC 96 60 - 200 mg/dL QC Media Lot # [id number] Lot# Expiration Date ,026 Blood Capillary blood specimen / Unknown 03/11/2025 3:01 PM EST Emelina Carmona MD POINT OF CARE TEST ENTER/EDIT ORDERABLES Final Result * Hepatitis C Antibody with Reflex to HCV, RNA, Quantitative, Real-Time PCR (10/08/2024 12:00 AM EDT) Hepatitis C Antibody GRAYZONE Nonreactive [facility] Comment:Antibodies to HCV ma y or may not be present. Suggest repeatanti-HCV in 4-6 weeks and/or HCV viral load if clinicallyindicated. Blood Venous blood specimen / Unknown 10/08/2024 10/08/2024 us Earlene Beck MD LAB BLOOD ORDERABLES Final Resul t Performing Organization Address [facility]/ZIP Co de Phone Number [facility] [address] [place] [address] [phone] * HIV-1/2 Antigen and Antibodies, Fourth Generation, with Reflexes (10/08/2024 12:00 AM EDT) HIV AB/AG Nonreactive Nonreactive [facility] Comment:HIV-1 p24 Ag and/or HIV-1/HIV-2 Ab not detected.A test result that is nonreactive does not exclude thepossibility of exposure to or infection with HIV-1 and/orHIV-2. Nonreactive results in this assay for individualswith prior exposure to HIV-1 and/or HIV-2 may be due toantigen and antibody levels that are below the limit ofdetection of this assay.The [employer] HIV Ag/Ab Combo assay result andsupplemental assay results should be interpreted inconjunction with the patient's clinical presentation,history and other laboratory results. If the results areinconsistent with clinical evidence, additional testing issuggested to confirm the result. Blood Venous blood specimen / Unknown 10/08/2024 10/08/2024 us Earlene Beck MD LAB BLOOD ORDERABLES Final Resul t Performing Organization Address City/[facility]/ZIP Co de Phone Number [facility] [address] [place] [address] [phone] * (ABNORMAL) Lipid Panel, Standard (10/08/2024 12:00 AM EDT) Triglycerides 60 <150 mg/dL [facility] Comment:Desirable Triglyceri de: less than 150 mg/dLBorderline High Triglyceride 150-199 mg/dLHigh Triglyceride: 200-499 mg/dLVery High Triglyceride: greater than or equal to 5OO mg/dL Cholesterol 104 <200 mg/dL [facility] Comment:Desirable Cholestero l: less than 200 mg/dLBorderline High Cholesterol: 200-239 mg/dLHigh Cholesterol: greater than 239 mg/dL LDL Cholesterol Calculated 56 <100 mg/dL [facility] Comment:Desirable LDL: less than 100 mg/dLNear Optimal/Above Optimal LDL: 110- 129 mg/dLBorderline High LDL: 130-159 mg/dLHigh LDL: 160-189 mg/dLVery High LDL: greater than or equal to 190 mg/dL HDL Cholesterol 36(L) >40 mg/dL [facility] Comment:Desirable HDL: great er than 40 mg/dL Note: This HDL assay may give artificially low results in patients with liver disease. Blood Venous blood specimen / Unknown 10/08/2024 10/08/2024 us Earlene Beck MD LAB BLOOD ORDERABLES Final Resul t [facility] [address] [place] [address] [phone] from Last 3 Months or Most Recently Relevant to Health Maintenance Additional Health Concerns Active Problems Noted Date Diagnosed Date Help patients manage their type 2 diabetes 04/14 Weekly blood pressure task 04/14/2025 Help patients manage their type 2 diabetes 04/14 Patient has chronic kidney disease 04/14/2025 Weekly blood pressure task 04/14/2025 Patient has chronic kidney disease 04/14/2025 Weekly blood pressure task 04/14/2025 Weekly blood pressure task 04/14/2025 Patient has chronic kidney disease 04/14/2025 Patient has chronic kidney disease 04/14/2025 Weekly blood pressure task 04/14/2025 Weekly blood pressure task 04/14/2025 Patient has chronic kidney disease 04/14/2025 Patient has chronic kidney disease 04/14/2025 Weekly blood pressure task 04/14/2025 Weekly blood pressure task 04/14/2025 Patient has chronic kidney disease 04/14/2025 Patient has chronic kidney disease 04/14/2025 Insurance [employer] < 65 JOÃO JIMENEZ [id number] Care Teams Buildings And Grounds Director Relationship Specialty Start Date End Date Emelina Carmona MD [address] [place] [phone] PCP - General Family Medicine 02/26/25 Estela Warren PharmD [address] [place] [phone] Pharmacist Pharmacy 02/07/25
--- OUTSIDE RECORDS SUMMARY | 2025-04-30 11:04 | XMS_ITS | Encounter Summary ---
Author Organization [employer] Address [address] [place] [address] Care Team Providers Care Director Of Payroll Name Role Phone Earlene Beck MD Primary Care Provider [phone] Estela Warren PharmD Unavailable [phone] Emelina Carmona MD Primary Care Provider [phone] Encounter Details Date Type Department Care Team ([facility] st Contact Info) Description 04/29/2024 Orders Only [facility] MED & PEDS [address] [place] [address] Provider, MD Kat Social History Tobacco Use Types Packs/Day Years [...] Description 05/09/2025 1:00 PM EST Office Visit [facility] OPT[facility] [address] [place] [address] RalphClarisa palmer, OD [address] [place] [address] 06/26/2025 2:00 PM EST Office Visit [facility] PEDS [address] [place], [place] [phone] Emelina Carmona MD [address] [place], [place] [phone] documented as of this encounter Procedures Procedure Name Priority Date/Time Associated Diagnosis Comments HEMOGLOBIN A1C Routine 04/10/2024 9:26 AM EST documented in this encounter Results * Hemoglobin A1c (04/10/2024 9:26 AM EST) Blood Venous blood specimen / Unknown us Historical Provider LAB BLOOD ORDERABLES Yasmeen l Result documented in this encounter Visit Diagnoses Not on filedocumented in this encounter Care Teams Director Of Payroll Relationship Specialty Start Date End Date Earlene Beck MD [address] [place] [address] PCP - General Family Medicine 02/26/20 02/25/25 Emelina Carmona MD [address] [place] [address] PCP - General Family Medicine 02/26/25 Estela Warren PharmD [address] [place] [address] Pharmacist Pharmacy 02/07/25 documented as of this encounter
--- OUTSIDE RECORDS SUMMARY | 2025-04-30 11:04 | XMS_ITS | Encounter Summary ---
Author Organization [employer] Address [address] [place] [address] [address] [place] [address] Care Team Providers Care Fare Enforcement Officer Name Role Phone Earlene Beck MD Primary Care Provider [phone] Estela Warren PharmD Unavailable [phone] Emelina Carmona MD Primary Care Provider [phone] Encounter Details Date Type Department Care Team (Latest Contact Info) Description 06/08/2020 Abstract [facility] CONVERSIONS Dental, Provider, DDS Social History [...] Description 05/09/2025 1:00 PM EST Office Visit [facility] OPTOMETRY [address] [place] [address] Clarisa Rosas, OD [address] [place] [address] 06/26/2025 2:00 PM EST Office Visit [facility] MED & PEDS [address] [place], [place] [phone] Emelina Carmona MD [address] [place] [address] documented as of this encounter Visit Diagnoses Not on filedocumented in this encounter Care Teams Fare Enforcement Officer Relationship Specialty Start Date End Date Earlene Beck MD [address] [place] [address] PCP - General Family Medicine 02/26/20 02/25/25 Emelina Carmona MD [address] [place] [address] PCP - General Family Medicine 02/26/25 Estela Warren PharmD [address] [place] [address] Pharmacist Pharmacy 02/07/25 documented as of this encounter
--- OUTSIDE RECORDS SUMMARY | 2025-04-30 11:04 | XMS_ITS | Encounter Summary ---
Author Organization [employer] Address [address] [place] [address] [address] [place] [address] Care Team Providers Care Doormaker Name Role Phone Earlene Beck MD Primary Care Provider [phone] Estela Warren PharmD Unavailable Emelina Carmona MD Primary Care Provider [phone] Reason for Visit * Reason Comments Med Refill Encounter Details Date Type Department Care Team (Late Contact Info) Description 01/07/2023 Refill [facility] MED & PEDS [address] [place], [place] [phone] Marie Reeves MD [address] [place], [place] [phone] Osteoarthritis of multiple joints, unspecified osteoarthritis type [...] Description 05/09/2025 1:00 PM EST Office Visit [facility] OPTOMET[facility] [address] [place], [place] [phone] Clarisa Rosas, OD [address] [place], [place] [phone] 06/26/2025 2:00 PM EST Office Visit [facility] MED [facility] PEDS [address] [place] [address] Emelina Carmona MD [address] [place] [address] documented as of this encounter Visit Diagnoses Diagnosis Osteoarthritis of multiple joints, unspecified osteoarthritis type documented in this encounter Care Teams Doormaker Relationship Specialty Start Date End Date Earlene Beck MD [address] [place] [address] PCP - General Family Medicine 02/26/20 02/25/25 Emelina Carmona MD [address] [place] [address] PCP - General Family Medicine 02/26/25 Estela Warren, BrianD [address] [place] [address] Pharmacist Pharmacy 02/07/25 documented as of this encounter
--- OUTSIDE RECORDS SUMMARY | 2025-04-30 11:04 | XMS_ITS | Encounter Summary ---
Author Organization [employer] Address [address] [facility] [address] [place] [address] Care Team Providers Care Rivet Machine Operator Name Role Phone Estela Warren PharmD Unavailable [phone] Emelina Carmona MD Primary Care Provider [phone] Reason for Visit * Reason Comments Med Refill Encounter Details Date Type Department Care Team ([facility] st Contact Info) Description 04/14/2025 Refill [facility] [address] [place], [place] [phone] Emelina Carmona MD [address] [place] [address] Osteoarthritis of multiple joints, unspecified osteoarthritis type [...] Description 05/09/2025 1:00 PM EST Office Visit [facility] [address] [place] [address] Ralph, Clarisa, OD [address] [place] [address] 06/26/2025 2:00 PM EST Office Visit [facility] [address] [place] [address] Emelina Carmona MD [address] [place] [address] documented as of this encounter Goals Goal Patient Goal Type Associated Problems [...] chronic kidney disease No Emelina Carmona MD documented as of this encounter Visit Diagnoses Diagnosis Osteoarthritis of multiple joints, unspecified osteoarthritis type documented in this encounter Additional Health Concerns Active Problems Noted Date [...] 04/14/2025 Patient has chronic kidney disease 04/14/2025 Assessment Noted Time PHQ-9 Depression Total Score: 4 08/29/19 25 10:26 AM EDT documented as of this encounter Care Teams Rivet Machine Operator Relationship Specialty Start Date End Date Emelina Carmona MD [address] [place] [address] PCP - General Family Medicine 02/26/25 Estela Warren PharmD [address] [place] [address] Pharmacist Pharmacy 02/07/25 documented as of this encounter
--- OUTSIDE RECORDS SUMMARY | 2025-04-30 11:04 | XMS_ITS | Encounter Summary ---
Author Organization [employer] Address [address] [facility] [address] [place] [address] Care Team Providers Care Real Time Operator Name Role Phone Earlene Beck MD Primary Care Provider [phone] Estela Warren PharmD Unavailable [phone] Emelina Carmona MD Primary Care Provider [phone] Reason for Visit * Reason Comments Med Refill Encounter Details Date Type Department Care Team ([facility] Contact Info) Description 01/04/2024 Refill [facility] [address] [place], [place] [phone] Emelina Carmona MD [address] [place] [address] Social History Tobacco Use Types Packs/Day Years [...] Description 05/09/2025 1:00 PM EST Office Visit [facility] [address] [place] [address] Clarisa Rosas, OD [address] [place] [address] 06/26/2025 2:00 PM EST Office Visit [facility] [address] [place] [address] Emelina Carmona MD [address] [place] [address] documented as of this encounter Visit Diagnoses Not on filedocumented in this encounter Care Teams Real Time Operator Relationship Specialty Start Date End Date Earlene Beck MD [address] [place] [address] PCP - General Family Medicine 02/26/20 02/25/25 Emelina Carmona MD [address] [place] [address] PCP - General Family Medicine 02/26/25 Estela Warren PharmD [address] [place] [address] Pharmacist Pharmacy 02/07/25 documented as of this encounter
--- OUTSIDE RECORDS SUMMARY | 2025-04-30 11:04 | XMS_ITS | Encounter Summary ---
Author Organization [employer] Address [address] [facility] [address] [place] [address] Care Team Providers Care Casing Flusher Name Role Phone Earlene Beck MD Primary Care Provider [phone] Estela Warren PharmD Unavailable [phone] Emelina Carmona MD Primary Care Provider [phone] Reason for Visit * Reason Comments Med Refill Encounter Details Date Type Department Care Team ([facility] st Contact Info) Description 09/19/2024 Refill [facility] [address] [place] [address] Earlene Beck MD [address] [place] [address] Osteoarthritis of multiple joints, unspecified osteoarthritis type [...] 05/09/2025 1:00 PM EST Office Visit [facility] [address] [place] [address] Ralph, Clarisa, OD [address] [place] [address] 06/26/2025 2:00 PM EST Office Visit [facility] [address] [place] [address] Emleina Carmona MD [address] [place] [address] documented as of this encounter Visit Diagnoses Diagnosis Osteoarthritis of multiple joints, unspecified osteoarthritis type documented in this encounter Additional Health Concerns Assessment Noted Time PHQ-9 Depression Total Score: 4 08/29/19 25 10:26 AM EDT documented as of this encounter Care Teams Casing Flusher Relationship Specialty Start Date End Date Earlene Beck MD [address] [place] [address] PCP - General Family Medicine 02/26/20 02/25/25 Emelina Carmona MD [address] [place] [address] PCP - General Family Medicine 02/26/25 Estela Warren PharmD [address] [place] [address] Pharmacist Pharmacy 02/07/25 documented as of this encounter
--- OUTSIDE RECORDS SUMMARY | 2025-04-30 11:04 | XMS_ITS | Encounter Summary ---
Author Organization [employer] Address [address] [place] [address] [address] [place] [address] Care Team Providers Care Bottle House Pumper Name Role Phone Earlene Beck MD Primary Care Provider [phone] Estela Warren PharmD Unavailable [phone] Emelina Carmona MD Primary Care Provider [phone] Encounter Details Date Type Department Care Team (Latest Contact Info) Description 05/09/2018 Abstract [facility] Dental, Provider, DDS Social History [...] Description 05/09/2025 1:00 PM EST Office Visit [facility] [address] [place] [address] Clarisa Rosas, OD [address] [place] [address] 06/26/2025 2:00 PM EST Office Visit [facility] [address] [place], [place] [phone] Emelina Carmona MD [address] [place] [address] documented as of this encounter Visit Diagnoses Not on filedocumented in this encounter Care Teams Bottle House Pumper Relationship Specialty Start Date End Date Earlene Beck MD [address] [place] [address] PCP - General Family Medicine 02/26/20 02/25/25 Emelina Carmona MD [address] [place] [address] PCP - General Family Medicine 02/26/25 Estela Warren PharmD [address] [place] [address] Pharmacist Pharmacy 02/07/25 documented as of this encounter
== END 2025-04-30 10:41 | disposition home or self-care (01) ==
LOC: HO.HOS 10:04
PROVIDERS: PCP Student in an Organized Health Care Education/Training Program; Visit Provider Orthopaedic Surgery
DX: M65.342 Trigger finger, left ring finger (principal)
CPT/HCPCS: 99214

== ENCOUNTER → 2025-04-30 10:04 | Outpatient (BNVA) | payer OTHER, SELFPAY | PROVIDERS: PCP Student in an Organized Health Care Education/Training Program; Visit Provider Orthopaedic Surgery | DX: M65.342 Trigger finger, left ring finger (principal); E11.42 Type 2 diabetes mellitus with diabetic polyneuropathy | CPT/HCPCS: 99212 ==